=== PATIENT | female | born 1965 | race Caucasian/White ===

== ENCOUNTER 2017-06-13 16:32 | Inpatient (IN) | payer MEDICAID, SELFPAY ==
[2017-06-13] VITALS (12 sets, daily range): BP systolic 122–167; BP diastolic 77–101; PULSE 80–100; RESP 13–22; TEMP 36.6–36.8; O2SAT 79–92; BMI 51.9; BMI 50.8
--- NOTE | 2017-06-13 16:43 | EKG12_ITS ---
Test Reason : SOB Blood Pressure : / mmHG Vent. Rate : 084 BPM Atrial Rate : 084 BPM P-R Int : 152 ms QRS Dur : 108 ms QT Int : 400 ms P-R-T Axes : 051 103 017 degrees QTc Int : 472 ms AGE AND GENDER SPECIFIC ECG ANALYSIS Normal sinus rhythm Right ventricular hypertrophy with repolarization abnormality ST elevation consider inferolateral injury or acute infarct ACUTE [place] / STEMI Abnormal ECG Confirmed by JM BONILLA, BRODY ([id number]), legal editor YAMILKA HEIN ([id number]) on 06/16/2017 3:32:09 PM Referred By: MARICARMEN Confirmed By:BRODY ONEAL MD
--- NOTE | 2017-06-13 16:45 | ED.VISSUMM ---
- ER Visit Summary Date of Service: 06/13/17 Chief Complaint: Dyspnea History of Present Illness: The patient is a 52 F worsening dyspnea over the last 2 days. Cough and wheezing. Status post aerosol treatment 2 PM with improved wheezing. History of right-sided heart failure with history of COPD sleep apnea and PE, states out of her Lasix 2 months ago. Takes 80 mg 3 times a day. Increase swelling the legs into her abdomen. Patient on 3 L of chronic oxygen. Tobacco history. Patient diagnosed with a PE last year 2016. She is on warfarin 10 mg, she states she is taking it daily. Similar symptoms when she was admitted in February. No vomiting or diarrhea. States had transient chest pain lasting seconds on the way in the ED. Physical Examination: General: Alert and oriented ?3, no acute distress HEENT: Normocephalic, atraumatic. Moist mucosa membranes Neck: supple, nontender. Cardiovascular: Regular rate and rhythm, no murmurs Respiratory: Normal breath sounds, symmetric, no distress Abdomen: Soft, nontender, nondistended. Lower abdominal swelling Extremities: Nontender, 1-2+ lower extremity edema, pulses intact ?4 Neuro: no focal neurological deficits. Test Results: EKG #1 at 1704: Sinus rate of 84. There is ST elevations V3 to V6 along with slightly inferior leads. His ST depression in V1 V2 with T-wave inversions at V1 V2. EKG #2 at 1731: Unchanged Emergency Department Course and Treatment: Patient came in by private vehicle off oxygen. In triage her O2 79%. She is placed on 4 L O2 to 92%. No current respiratory distress. No current wheezing however status post aerosol treatment at home. Reports not taking her Lasix for 2 months. Workup initiated. IV Lasix was administrated. Treatment Plan: Patient initiated COPD, CHF and chest pain workup. EKG noted ST elevations inferior lateral leads slight depressions V1 V2. Initial discussion and rediscussed with the patient is feeling at seconds of gas pain substernally that resolved. There is no radicular symptoms. There is no nausea or diaphoresis. However with findings I did speak with on-call covering corncob pipes assembler Dr. Morales at 1714 who reviewed the EKGs. Discussed possibility could be pericarditis with the inferior elevations and OK depressions there. In the clinical scenario patient no active chest pain, workup. Agrees with aspirin and Lasix therapy. Recommend adding a CRP and ESR. Monitor for chest symptoms that would change plan of care. Patient continues to deny complaint of chest symptoms. Troponin did return elevated 0.81. I did rediscuss with Dr. Morales, updated. Elevated CRP and ESR. Patient clinically is not acting like angina symptoms. INR did return at 1.4 stop therapeutic. Agrees with starting her on heparin. She will be monitored in PCU for treatment and further rule out as needed in the hospital. If she develops chest symptoms he is to be contacted for possible earlier intervention. Spoke with hospitalist, Dr. Hernadez updated on presentation, discussion with cardiology. He was admitted for further management. Disposition: Admission Impression: 1. COPD exacerbation 2. CHF exacerbation 3. Elevated troponin 4. Abnormal EKG This note was generated with [employer] dictation software. It may contain incorrect words, spelling, and punctuation that were not noted in review of the chart prior to signing ED Disposition - Plan for ED Patient: Disposition: Acute Care Hospital [facility] Chief Complaint: Shortness of Breath Diagnosis: CHF exacerbation, COPD exacerbation, Elevated troponin, Abnormal EKG Referrals: Brian Thao MD [Primary Care Provider] -
--- NOTE | 2017-06-13 16:50 | RAD_ITS ---
STUDY: X-RAY CHEST REASON FOR EXAM: Female, 52 years old. Increasing edema. Shortness of breath. TECHNIQUE: Portable AP COMPARISON: February 16, 2017 FINDINGS: There is perihilar fullness associated with indistinct pulmonary bronchovasculature and prominent interstitial markings. There is cardiomegaly present. There are calcified mediastinal lymph nodes. Normal visualized aortic arch and descending thoracic aorta. Normal visualized thoracic spine. Normal visualized ribs, clavicles, and shoulders. There is no demonstrated abnormality of the visualized soft tissue structures of the upper abdomen. RAD/Chest 1 View (Portable) IMPRESSION: Pulmonary venous congestion with possible associated interstitial edema. Cardiomegaly. Electronically Signed: Cintia Villafuerte MD at 17:11 EDT Tel , Service support ,
--- NOTE | 2017-06-13 17:20 | EKG12_ITS ---
Test Reason : REPEAT Blood Pressure : / mmHG Vent. Rate : 081 BPM Atrial Rate : 081 BPM P-R Int : 162 ms QRS Dur : 108 ms QT Int : 420 ms P-R-T Axes : 018 102 010 degrees QTc Int : 487 ms AGE AND GENDER SPECIFIC ECG ANALYSIS Normal sinus rhythm ST elevation consider inferolateral injury or acute infarct Prolonged QT ACUTE [place] / STEMI Abnormal ECG Confirmed by JM BONILLA, BRODY ([id number]), technical writer and editor YAMILKA HEIN ([id number]) on 06/16/2017 3:32:29 PM Referred By: DR PATRICK Confirmed By:BRODY ONEAL MD
[2017-06-13] MEDS: Aspirin 325 MG Tablet PO (17:21)
[2017-06-13] MEDS: MethylPREDNISolone 125 MG/2 ML Vial IV (17:21)
[2017-06-13] MEDS: Furosemide 100 MG/10 ML Vial 80 MG IV (17:21)
[2017-06-13 17:48] LABS: BNP,B-Type NATRIURETIC PEPTIDE 695.5 pg/mL (0-100)
[2017-06-13 17:56] LABS: Absolute Neutrophil Count 4.8 X10^3/uL (2.0-7.7); Anion Gap 6 (5-15); BUN 14 mg/dL (7-18); BUN/Creat Ratio 14.4 RATIO (10-20); Basophil# 0.04 X10^3/uL; Basophil% 0.6 % (0-1); Calcium,Total 8.9 mg/dL (8.5-10.1); Chloride 104 mmol/L (98-107); Creatinine, Serum 0.97 mg/dL (0.55-1.02); EST Glomerular Filtration Rate 64 mL/min (>60); Eosinophils% 1.5 % (0-5); Est Glom Filt Rate - Afr Amer 77 mL/min (>60); Estimated Creatinine Clearance 62.07 ml/min; Glucose 117 mg/dL (74-106); Hematocrit 48.6 % (37-47); Hemoglobin 14.1 g/dl (12.0-15.0); Lymphocyte % 16.7 % (19-41); Mean Corpuscular Volume 68.8 fL (81-99); Mean Platelet Vol. 9.1 fl (6.2-12.0); Monocyte# 0.57 X10^3/uL; Monocyte% 8.7 % (0-10); Neutrophil # 4.76 X10^3/uL (2.7-7.7); Neutrophil % 72.3 % (47-70); Platelet Count 239 K/mm3 (150-450); Potassium 4.1 mmol/L (3.5-5.1); RBC Distribution Width CV 23.5 % (11.6-14.6); RBC Distribution Width SD 57.5 fl (35.1-43.9); Sodium Level 142 mmol/L (136-145); White Blood Count 6.6 K/mm3 (4.4-11.0)
[2017-06-13 17:57] LABS: Red Blood Count 7.06 M/mm3 (4.2-5.4)
[2017-06-13 17:58] LABS: Differential Indicated SCAN CRITERIA MET; POSITIVE COUNT NO; POSITIVE DIFFERENTIAL NO; POSITIVE MORPHOLOGY YES
[2017-06-13 17:59] LABS: Erythrocyte Sedimentation Rate 31 mm/hr (0-30)
[2017-06-13 18:07] LABS: International Normalized Ratio 1.4; Partial Thromboplast Time 34.5 Seconds (24.1-36.2); Prothrombin Time (Protime)PT. 17.3 SECONDS (11.7-14.9)
[2017-06-13 18:21] LABS: Differential Comment SCANNED
--- NOTE | 2017-06-13 19:14 | PCM.HP.STD ---
Problem List (1) CHF exacerbation Status: Acute (2) COPD exacerbation Status: Acute (3) Elevated troponin Status: Acute (4) Abnormal EKG Status: Acute (5) Pulmonary embolus Status: Suspected Qualifiers: (6) Morbid obesity with BMI of 60.0-69.9, adult Status: Chronic (7) Sleep apnea syndrome Status: Suspected Qualifiers: (8) Viridans streptococci infection Status: Resolved (9) Bacteremia due to Streptococcus Status: Resolved (10) Acute kidney failure Status: Resolved (11) Transaminitis Status: Chronic (12) Cellulitis Status: Resolved Qualifiers: History of Present Illness Date of Admission: 06/13/17 Chief Complaint: Shortness of breath The patient is a 52 year old F with multiple comorbidities including CHF and COPD on 3 L of home oxygen came to ER with progressive worsening of shortness of breath for 2 days. She states he ran out of Lasix about 2 months ago and her appointment with PCP is 6 months from now. Patient denies chest pain/tightness/heaviness or palpitation. In the ED, patient was found 79% on room air and currently 92% on 4 L oxygen. Patient is mild tachypneic. Chest x-ray shows pulmonary venous congestion with associated interstitial edema. First troponin is mildly elevated 0.8. There is some EKG changes mainly ST depression in V1 and V2 with T inversion in V1 to V3 lead. There is subtle [place] depression in inferior leads and ST elevation in V3 to V4. The EKG changes and troponin was discussed with Dr. Morales by ER physician Dr. Chavarria. Patient is on Coumadin for history of PE but INR is subtherapeutic. Patient is started on IV heparin drip in case if she needs cardiac cath. [] Past Medical History Past Medical History (Chronic Problems): Chronic Problems Morbid obesity with BMI of 60.0-69.9, adult (Chronic) Transaminitis (Chronic) Allergies aspirin [From Percodan] Allergy (Verified 06/13/17 16:36) Hives oxycodone HCl [From Percodan] Allergy (Verified 06/13/17 16:36) Hives oxycodone terephthalate [From Percodan] Allergy (Verified 06/13/17 16:36) Hives Sulfa (Sulfonamide Antibiotics) Allergy (Verified 06/13/17 16:36) Hives cefuroxime Adverse Reaction (Verified 06/13/17 16:36) Unknown Cephalosporins Adverse Reaction (Verified 06/13/17 16:36) Vomiting meperidine HCl [From Demerol] Adverse Reaction (Verified 06/13/17 16:36) Vomiting NSAIDS (Non-Steroidal Anti-Inflamma Adverse Reaction (Verified 06/13/17 16:36) Unknown oxycodone [Oxycodone] Adverse Reaction (Verified 06/13/17 16:36) Rash procaine [Procaine] Adverse Reaction (Verified 06/13/17 16:36) Upset Stomach Home Medications: Ambulatory Orders Medication Instructions Recorded Acetaminophen 500 mg PO Q6H PRN 11/28/16 Albuterol Inhaler [Ventolin Hfa] 1 - 2 puff INHALATION Q4H PRN PRN 11/28/16 Buspirone HCl 7.5 mg PO BID 11/28/16 Cholecalciferol (Vitamin D3) 50,000 unit PO QWEEK 11/28/16 [Vitamin D3] Docusate Sodium [Stool Softener] 100 mg PO BID PRN 11/28/16 Folic Acid 1 mg PO DAILY 11/28/16 Gabapentin [Neurontin] 100 mg PO BIDCM 11/28/16 Levothyroxine [Synthroid] 25 mcg PO DAILY 11/28/16 Metoprolol Succinate 25 mg PO DAILY 11/28/16 Omeprazole 20 mg PO DAILY 11/28/16 Oxybutynin [Ditropan] 5 mg PO DAILY 11/28/16 Venlafaxine HCl [Venlafaxine HCl 150 mg PO DAILY 11/28/16 ER] Warfarin [Coumadin] 10 mg PO DAILY 11/28/16 Furosemide [Lasix] 80 mg PO TID #90 tab 02/19/17 Famotidine 20 mg PO QHS 06/13/17 Hydroxyzine HCl 10 mg PO TID 06/13/17 Multivitamin with Iron [Tab-A-Jessica 1 each PO DAILY 06/13/17 with Iron] Surgical History: cholecystectomy, - - section. 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 Denies: Chills, Fever HEENT: Denies: Head Aches, Sinus Congestion, Sinus Drainage Cardiovascular: Reports: Edema. Denies: Chest Pain, Palpitations Respiratory: Reports: Cough - Chronic COPD cough with no change in character or severity, Shortness of breath at rest, Shortness of breath upon exertion. Denies: Sputum production Gastrointestinal: Denies: Abdominal Pain, Nausea, Vomiting Genitourinary: Denies: Dysuria Musculoskeletal: Reports: Joint Pain. Denies: Joint Tenderness Skin: Denies: Rash, Wounds Neurological: Denies: Numbness, Tingling, Focal weakness Psychiatric: Denies: Anxiety, Depression, Homicidal Ideations, Suicidal Ideations Hematologic/ Lymphatic: Denies: Easy Bruising, Easy Bleeding VTE Information - Inpt Only VTE Present on Admission: No VTE Mechan Device Prophylaxis: SCD's VTE Pharm Prophylaxis ordered?: Yes Patient Problems: Active and Suspected Problems CHF exacerbation (Acute) COPD exacerbation (Acute) Elevated troponin (Acute) Abnormal EKG (Acute) - Physical Exam General: Alert, Oriented x3, Cooperative HEENT: Atraumatic, PERRLA, EOMI, Normocephalic Oral: Dry Mucosa Neck: Supple, No JVD, Negative Carotid Bruits Lungs: Diminished - Air entry diminished diffuse in all lung vuong. Bilateral wheezing present., Rhonchi, Short of Breath, Tachypneic, Wheezes Cardiovascular: Regular rate, Regular Rhythm, Normal S1, Normal S2, No murmurs Abdomen: Bowel Sounds Present, Soft, Non Tender, - - Obese abdomen. Difficult to assess ascites Extremities: Capillary Refill Less than 3 Seconds, Edema Skin: No rashes, No breakdown, - - Bilateral lower extremity edema with lymphedema Musculoskeletal: No Tenderness to Palpation of Joints or Extremities Neurological: Cranial nerves II-XII grossly intact, Neuro grossly intact Psych/Mental Status: Normal Affect, Appropriate Vital Signs Temp Pulse Resp BP Pulse Ox 98.1 F 84 20 H 161/95 H 92 06/13/17 16:34 06/13/17 18:44 06/13/17 18:44 06/13/17 18:44 06/13/17 18:44 Assessment/Plan Active and Suspected Problems CHF exacerbation (Acute) COPD exacerbation (Acute) Elevated troponin (Acute) Abnormal EKG (Acute) The patient is a 52 year old F with multiple comorbidities including CHF and COPD on 3 L of home oxygen came to ER with progressive worsening of shortness of breath for 2 days. She states he ran out of Lasix about 2 months ago and her appointment with PCP is 6 months from now. Patient denies chest pain/tightness/heaviness or palpitation. In the ED, patient was found 79% on room air and currently 92% on 4 L oxygen. Patient is mild tachypneic. Chest x-ray shows pulmonary venous congestion with associated interstitial edema. First troponin is mildly elevated 0.8. There is some EKG changes mainly ST depression in V1 and V2 with T inversion in V1 to V3 lead. There is subtle [place] depression in inferior leads and ST elevation in V3 to V4. The EKG changes and troponin was discussed with Dr. Morales by ER physician Dr. Chavarria. Patient is on Coumadin for history of PE but INR is subtherapeutic. Patient is started on IV heparin drip in case if she needs cardiac cath. 1. Acute on chronic heart failure mainly right ventricular failure with pulmonary hypertension due to cor pulmonale: Patient had echo in February 2017 which shows severely dilated right ventricle with moderately severe global RV systolic dysfunction. LV is normal in size, moderate concentric LVH and systolic function with EF 65%. Normal LV, right atrium mildly enlarged. Mild TR with RVSP 73 mmHg severe pulmonary hypertension. The patient is being admitted in PCU. Patient had Lasix 40 mg in the ER and started on Lasix drip. Control the blood pressure. Started on lisinopril, continue metoprolol, statin. Cardiology consult. 2. EKG changes with mildly elevated troponin: Cycle cardiac enzymes. Repeat EKG at night. Mildly elevated troponin probably from right-sided heart failure. 3. Mild COPD exacerbation with acute bronchitis: On bronchodilator, IV Solu-Medrol, incentive spirometry, chest physiotherapy and oxygen therapy. Flu test ordered. 4. history of PE: Patient is on Coumadin but INR subtherapeutic. On IV heparin drip. 5. Other comorbidities include obstructive sleep apnea, chronic nicotine use, bilateral lower extremity lymphedema with possibility of ascites, super morbid obesity: Home medication reconciliation done. Multiple comorbidities complicates the present care and probably add to length of his stay. CPAP at night DVT prophylaxis: On IV heparin drip Laboratory Results 06/13/17 17:11: WBC 6.6, RBC 7.06 H, Hgb 14.1, Hct 48.6 H, MCV 68.8 L, MCH 20.0 L, MCHC 29.0 L, RDW 23.5 H, RDW Differential 57.5 H, Plt Count 239, MPV 9.1, Immature Gran % (Auto) 0.200, Neut % (Auto) 72.3 H, Lymph % (Auto) 16.7 L, [place] % (Auto) 8.7, Eos % (Auto) 1.5, Baso % (Auto) 0.6, Absolute Neuts (auto) 4.8, Absolute Lymphs (auto) 1.10, Total Counted Not Reportable, Differential Comment SCANNED 06/13/17 17:11: Sodium 142, Potassium 4.1, Chloride 104, Carbon Dioxide 32.0, Anion Gap 6, BUN 14, Creatinine 0.97, Estim Creat Clear Calc 62.07, Est GFR (MDRD) Af Amer 77, Est GFR (MDRD) Non-Af 64, BUN/Creatinine Ratio 14.4, Glucose 117 H, Calcium 8.9, Troponin I 0.81 H* 06/13/17 17:11: B-Natriuretic Peptide 695.5 H 06/13/17 17:11: PT 17.3 H, INR 1.4, APTT 34.5 06/13/17 17:11: ESR 31 H 06/13/17 17:11: C-React Prot Ext Range 20.80 H Clinical Impression(s) from Imaging Studies Chest X-Ray 06/13/17 16:50 IMPRESSION: Pulmonary venous congestion with possible associated interstitial edema. Cardiomegaly. Code Visit Inpatient E&M: 61486 Init Hosp L3
--- NOTE | 2017-06-13 19:28 | HP.PCM_ITS ---
Problem List (1) CHF exacerbation Status: Acute (2) COPD exacerbation Status: Acute (3) Elevated troponin Status: Acute (4) Abnormal EKG Status: Acute (5) Pulmonary embolus Status: Suspected Qualifiers: (6) Morbid obesity with BMI of 60.0-69.9, adult Status: Chronic (7) Sleep apnea syndrome Status: Suspected Qualifiers: (8) Viridans streptococci infection Status: Resolved (9) Bacteremia due to Streptococcus Status: Resolved (10) Acute kidney failure Status: Resolved (11) Transaminitis Status: Chronic (12) Cellulitis Status: Resolved Qualifiers: History of Present Illness Date of Admission: 06/13/17 Chief Complaint: Shortness of breath The patient is a 52 year old F with multiple comorbidities including CHF and COPD on 3 L of home oxygen came to ER with progressive worsening of shortness of breath for 2 days. She states he ran out of Lasix about 2 months ago and her appointment with PCP is 6 months from now. Patient denies chest pain/ tightness/heaviness or palpitation. In the ED, patient was found 79% on room air and currently 92% on 4 L oxygen. Patient is mild tachypneic. Chest x-ray shows pulmonary venous congestion with associated interstitial edema. First troponin is mildly elevated 0.8. There is some EKG changes mainly ST depression in V1 and V2 with T inversion in V1 to V3 lead. There is subtle AL depression in inferior leads and ST elevation in V3 to V4. The EKG changes and troponin was discussed with Dr. Morales by ER physician Dr. Chavarria. Patient is on Coumadin for history of PE but INR is subtherapeutic. Patient is started on IV heparin drip in case if she needs cardiac cath. [] Past Medical History Past Medical History (Chronic Problems): Chronic Problems Morbid obesity with BMI of 60.0-69.9, adult (Chronic) Transaminitis (Chronic) Allergies aspirin [From Percodan] Allergy (Verified 06/13/17 16:36) Hives oxycodone HCl [From Percodan] Allergy (Verified 06/13/17 16:36) Hives oxycodone terephthalate [From Percodan] Allergy (Verified 06/13/17 16:36) Hives Sulfa (Sulfonamide Antibiotics) Allergy (Verified 06/13/17 16:36) Hives cefuroxime Adverse Reaction (Verified 06/13/17 16:36) Unknown Cephalosporins Adverse Reaction (Verified 06/13/17 16:36) Vomiting meperidine HCl [From Demerol] Adverse Reaction (Verified 06/13/17 16:36) Vomiting NSAIDS (Non-Steroidal Anti-Inflamma Adverse Reaction (Verified 06/13/17 16:36) Unknown oxycodone [Oxycodone] Adverse Reaction (Verified 06/13/17 16:36) Rash procaine [Procaine] Adverse Reaction (Verified 06/13/17 16:36) Upset Stomach Home Medications: Ambulatory Orders Medication Instructions Recorded Acetaminophen 500 mg PO Q6H PRN 11/28/16 Albuterol Inhaler [Ventolin Hfa] 1 - 2 puff INHALATION Q4H PRN PRN 11/28/16 Buspirone HCl 7.5 mg PO BID 11/28/16 Cholecalciferol (Vitamin D3) 50,000 unit PO QWEEK 11/28/16 [Vitamin D3] Docusate Sodium [Stool Softener] 100 mg PO BID PRN 11/28/16 Folic Acid 1 mg PO DAILY 11/28/16 Gabapentin [Neurontin] 100 mg PO BIDCM 11/28/16 Levothyroxine [Synthroid] 25 mcg PO DAILY 11/28/16 Metoprolol Succinate 25 mg PO DAILY 11/28/16 Omeprazole 20 mg PO DAILY 11/28/16 Oxybutynin [Ditropan] 5 mg PO DAILY 11/28/16 Venlafaxine HCl [Venlafaxine HCl 150 mg PO DAILY 11/28/16 ER] Warfarin [Coumadin] 10 mg PO DAILY 11/28/16 Furosemide [Lasix] 80 mg PO TID #90 tab 02/19/17 Famotidine 20 mg PO QHS 06/13/17 Hydroxyzine HCl 10 mg PO TID 06/13/17 Multivitamin with Iron [Tab-A-Jessica 1 each PO DAILY 06/13/17 with Iron] Surgical History: cholecystectomy, - - section. 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 Denies: Chills, Fever HEENT: Denies: Head Aches, Sinus Congestion, Sinus Drainage Cardiovascular: Reports: Edema. Denies: Chest Pain, Palpitations Respiratory: Reports: Cough - Chronic COPD cough with no change in character or severity, Shortness of breath at rest, Shortness of breath upon exertion. Denies: Sputum production Gastrointestinal: Denies: Abdominal Pain, Nausea, Vomiting Genitourinary: Denies: Dysuria Musculoskeletal: Reports: Joint Pain. Denies: Joint Tenderness Skin: Denies: Rash, Wounds Neurological: Denies: Numbness, Tingling, Focal weakness Psychiatric: Denies: Anxiety, Depression, Homicidal Ideations, Suicidal Ideations Hematologic/ Lymphatic: Denies: Easy Bruising, Easy Bleeding VTE Information - Inpt Only VTE Present on Admission: No VTE Mechan Device Prophylaxis: SCD's VTE Pharm Prophylaxis ordered?: Yes Patient Problems: Active and Suspected Problems CHF exacerbation (Acute) COPD exacerbation (Acute) Elevated troponin (Acute) Abnormal EKG (Acute) - Physical Exam General: Alert, Oriented x3, Cooperative HEENT: Atraumatic, PERRLA, EOMI, Normocephalic Oral: Dry Mucosa Neck: Supple, No JVD, Negative Carotid Bruits Lungs: Diminished - Air entry diminished diffuse in all lung vuong. Bilateral wheezing present., Rhonchi, Short of Breath, Tachypneic, Wheezes Cardiovascular: Regular rate, Regular Rhythm, Normal S1, Normal S2, No murmurs Abdomen: Bowel Sounds Present, Soft, Non Tender, - - Obese abdomen. Difficult to assess ascites Extremities: Capillary Refill Less than 3 Seconds, Edema Skin: No rashes, No breakdown, - - Bilateral lower extremity edema with lymphedema Musculoskeletal: No Tenderness to Palpation of Joints or Extremities Neurological: Cranial nerves II-XII grossly intact, Neuro grossly intact Psych/Mental Status: Normal Affect, Appropriate Vital Signs Temp Pulse Resp BP Pulse Ox 98.1 F 84 20 H 161/95 H 92 06/13/17 16:34 06/13/17 18:44 06/13/17 18:44 06/13/17 18:44 06/13/17 18:44 Assessment/Plan Active and Suspected Problems CHF exacerbation (Acute) COPD exacerbation (Acute) Elevated troponin (Acute) Abnormal EKG (Acute) The patient is a 52 year old F with multiple comorbidities including CHF and COPD on 3 L of home oxygen came to ER with progressive worsening of shortness of breath for 2 days. She states he ran out of Lasix about 2 months ago and her appointment with PCP is 6 months from now. Patient denies chest pain/ tightness/heaviness or palpitation. In the ED, patient was found 79% on room air and currently 92% on 4 L oxygen. Patient is mild tachypneic. Chest x-ray shows pulmonary venous congestion with associated interstitial edema. First troponin is mildly elevated 0.8. There is some EKG changes mainly ST depression in V1 and V2 with T inversion in V1 to V3 lead. There is subtle AL depression in inferior leads and ST elevation in V3 to V4. The EKG changes and troponin was discussed with Dr. Morales by ER physician Dr. Chavarria. Patient is on Coumadin for history of PE but INR is subtherapeutic. Patient is started on IV heparin drip in case if she needs cardiac cath. 1. Acute on chronic heart failure mainly right ventricular failure with pulmonary hypertension due to cor pulmonale: Patient had echo in February 2017 which shows severely dilated right ventricle with moderately severe global RV systolic dysfunction. LV is normal in size, moderate concentric LVH and systolic function with EF 65%. Normal LV, right atrium mildly enlarged. Mild TR with RVSP 73 mmHg severe pulmonary hypertension. The patient is being admitted in PCU. Patient had Lasix 40 mg in the ER and started on Lasix drip. Control the blood pressure. Started on lisinopril, continue metoprolol, statin. Cardiology consult. 2. EKG changes with mildly elevated troponin: Cycle cardiac enzymes. Repeat EKG at night. Mildly elevated troponin probably from right-sided heart failure. 3. Mild COPD exacerbation with acute bronchitis: On bronchodilator, IV Solu- Medrol, incentive spirometry, chest physiotherapy and oxygen therapy. Flu test ordered. 4. history of PE: Patient is on Coumadin but INR subtherapeutic. On IV heparin drip. 5. Other comorbidities include obstructive sleep apnea, chronic nicotine use, bilateral lower extremity lymphedema with possibility of ascites, super morbid obesity: Home medication reconciliation done. Multiple comorbidities complicates the present care and probably add to length of his stay. CPAP at night DVT prophylaxis: On IV heparin drip Laboratory Results 06/13/17 17:11: WBC 6.6, RBC 7.06 H, Hgb 14.1, Hct 48.6 H, MCV 68.8 L, MCH 20.0 L, MCHC 29.0 L, RDW 23.5 H, RDW Differential 57.5 H, Plt Count 239, MPV 9.1, Immature Gran % (Auto) 0.200, Neut % (Auto) 72.3 H, Lymph % (Auto) 16.7 L, [place] % (Auto) 8.7, Eos % (Auto) 1.5, Baso % (Auto) 0.6, Absolute Neuts (auto) 4.8, Absolute Lymphs (auto) 1.10, Total Counted Not Reportable, Differential Comment SCANNED 06/13/17 17:11: Sodium 142, Potassium 4.1, Chloride 104, Carbon Dioxide 32.0, Anion Gap 6, BUN 14, Creatinine 0.97, Estim Creat Clear Calc 62.07, Est GFR ( MDRD) Af Amer 77, Est GFR (MDRD) Non-Af 64, BUN/Creatinine Ratio 14.4, Glucose 117 H, Calcium 8.9, Troponin I 0.81 H* 06/13/17 17:11: B-Natriuretic Peptide 695.5 H 06/13/17 17:11: PT 17.3 H, INR 1.4, APTT 34.5 06/13/17 17:11: ESR 31 H 06/13/17 17:11: C-React Prot Ext Range 20.80 H Clinical Impression(s) from Imaging Studies Chest X-Ray 06/13/17 16:50 IMPRESSION: Pulmonary venous congestion with possible associated interstitial edema. Cardiomegaly. Code Visit Inpatient E&M: 45583 Init Hosp L3
[2017-06-13 19:52] LABS: Magnesium 1.6 mg/dL (1.6-2.6)
[2017-06-13] MEDS: Heparin Injection 5,000 UNITS/ML Syringe 4000 UNITS IV (20:28)
[2017-06-13] MEDS: 0.9% NaCl Peripheral Flush Adult/Peds IV ×2 (20:29→22:10)
[2017-06-13] MEDS: Lisinopril 5 MG Tablet PO (20:29)
[2017-06-13] MEDS: HEPARIN/D5w 25,000 UNITS 25,000 UNITS/250 ML IV.SOLN. 10 UNITS IV (20:31)
[2017-06-13] MEDS: Acetaminophen 325 MG Tablet 650 MG PO (20:49)
[2017-06-13] MEDS: Ipratropium/Albuterol Sulfate 3 ML AMPUL.NEB INHALATION (21:20)
--- NOTE | 2017-06-13 22:06 | EKG12_ITS ---
Test Reason : CHF Blood Pressure : / mmHG Vent. Rate : 092 BPM Atrial Rate : 092 BPM P-R Int : 162 ms QRS Dur : 110 ms QT Int : 390 ms P-R-T Axes : 051 112 -04 degrees QTc Int : 482 ms Normal sinus rhythm Right ventricular hypertrophy with repolarization abnormality Anterior infarct , age undetermined T wave abnormality, consider inferior ischemia Abnormal ECG When compared with ECG of 13-JUN-2017 17:31, MANUAL COMPARISON REQUIRED, DATA IS UNCONFIRMED Confirmed by JM BONILLA, BRODY ([id number]), web editor YAMILKA HEIN ([id number]) on 06/19/2017 2:37:28 PM Referred By: MARK Confirmed By:BRODY ONEAL MD
[2017-06-13] MEDS: busPIRone 5 MG Tablet 7.5 MG PO (22:09)
[2017-06-13] MEDS: guaiFENesin 1,200 MG Tablet 1200 MG PO (22:09)
[2017-06-14] VITALS (23 sets, daily range): BP systolic 101–161; BP diastolic 57–98; PULSE 69–104; RESP 14–20; TEMP 36.4–37.1; O2SAT 85–90
[2017-06-14] MEDS: Nitroglycerin Oint 1 INCH PACKET TRANSDERM. ×2 (00:53→05:41)
[2017-06-14] MEDS: Metoprolol Tartrate 25 MG Tablet PO ×3 (00:54→21:44)
[2017-06-14 02:36] LABS: Partial Thromboplast Time 38.3 Seconds (24.1-36.2)
[2017-06-14 02:38] LABS: Absolute Lymphocyte Count 0.57 X10^3/ul (0.83-4.51); Absolute Neutrophil Count 6.8 X10^3/uL (2.0-7.7); Basophil# 0.01 X10^3/uL; Basophil% 0.1 % (0-1); Hematocrit 54.1 % (37-47); Hemoglobin 15.4 g/dl (12.0-15.0); Lymphocyte # 0.57 X10^3/ul (4.0); Lymphocyte % 7.5 % (19-41); Mean Corp Hgb Conc 28.5 g/gl (32-36); Mean Corpuscular Hgb 20.2 pg (27.0-32.0); Mean Corpuscular Volume 70.8 fL (81-99); Monocyte# 0.18 X10^3/uL; Monocyte% 2.4 % (0-10); Neutrophil # 6.78 X10^3/uL (2.7-7.7); Neutrophil % 89.9 % (47-70); Platelet Count 184 K/mm3 (150-450); RBC Distribution Width CV 22.2 % (11.6-14.6); RBC Distribution Width SD 54.8 fl (35.1-43.9); White Blood Count 7.6 K/mm3 (4.4-11.0)
[2017-06-14 02:39] LABS: Differential Indicated SCAN CRITERIA MET; POSITIVE COUNT NO; POSITIVE DIFFERENTIAL YES; POSITIVE MORPHOLOGY YES; Red Blood Count 7.64 M/mm3 (4.2-5.4)
[2017-06-14] MEDS: Heparin Injection 5,000 UNITS/ML Syringe IV ×2 (02:57→16:22)
[2017-06-14 03:01] LABS: Differential Comment SCANNED
[2017-06-14 03:02] LABS: Anisocytosis 2+; Polychromasia RARE
[2017-06-14 03:06] LABS: AST(SGOT) 76 U/L (15-37); Alanine Aminotransfer ALT/SGPT 22 U/L (13-56); Albumin, Serum 3.2 g/dL (3.2-5.0); Alkaline Phosphatase 99 U/L (45-117); Anion Gap 8 (5-15); BUN 16 mg/dL (7-18); BUN/Creat Ratio 14.2 RATIO (10-20); Bilirubin, Direct 0.21 mg/dL (0.00-0.30); Calcium,Total 8.9 mg/dL (8.5-10.1); Chloride 100 mmol/L (98-107); Cholesterol 174 mg/dL (200); Creatinine, Serum 1.13 mg/dL (0.55-1.02); EST Glomerular Filtration Rate 53 mL/min (>60); Est Glom Filt Rate - Afr Amer 65 mL/min (>60); Estimated Creatinine Clearance 53.28 ml/min; Globulin 4.4 g/dL (2.2-4.2); Glucose 145 mg/dL (74-106); High Density Lipoprotein 46 mg/dL; Potassium 3.5 mmol/L (3.5-5.1); Protein, Total 7.6 g/dL (6.4-8.2); Sodium Level 141 mmol/L (136-145); Thyroid Stim Hormone (TSH) 0.61 uIU/mL (0.358-3.74); Triglycerides 78 mg/dL; Very Low Density Lipoprotein 16 mg/dL (5-40)
[2017-06-14 04:43] LABS: Color, Urine Straw (Yellow); Glucose, Dipstick Normal (Normal); Ketone-Dipstick Negative (Negative); Leukocyte Esterase-Dipstick Negative /ul (Negative); Nitrite-Dipstick Negative (Negative); Occult Blood-Urine 25 /ul (Negative); Protein-Dipstick 100 mg/dl (Negative); Urine Bilirubin Dipstick Negative (Negative); Urine Clarity Clear (Clear); Urine Urobilinogen Normal (Normal)
[2017-06-14 04:44] LABS: Internal QC Validated? YES +Cl - CLEAR BKGD; Pregnancy, Urine Negative Negative
[2017-06-14] MEDS: Levothyroxine 25 MCG TABLET PO (05:42)
[2017-06-14] MEDS: Acetaminophen 325 MG Tablet 650 MG PO (05:44)
[2017-06-14] MEDS: Lisinopril 5 MG Tablet PO (05:44)
[2017-06-14 06:53] LABS: International Normalized Ratio 1.3; Prothrombin Time (Protime)PT. 16.5 SECONDS (11.7-14.9)
[2017-06-14 06:54] LABS: Partial Thromboplast Time 41.1 Seconds (24.1-36.2)
[2017-06-14] MEDS: Ipratropium/Albuterol Sulfate 3 ML AMPUL.NEB INHALATION ×4 (07:29→18:55)
[2017-06-14] MEDS: Gabapentin 100 MG Capsule PO ×2 (08:27→16:22)
[2017-06-14] MEDS: traMADol 50 MG Tablet PO ×2 (08:27→16:22)
[2017-06-14] MEDS: Clopidogrel Bisulfate 300 MG Tablet PO (08:27)
[2017-06-14] MEDS: Aspirin 81 MG TAB.CHEW PO (08:27)
[2017-06-14] MEDS: Folic Acid 1 MG Tablet PO (08:27)
--- NOTE | 2017-06-14 09:02 | VDLE_ITS ---
Reason For Study: SHORTNESS OF BREATH RIGHT LEFT GSV is normal. GSV is normal. CFV is compressible, spontaneous, phasic, CFV is compressible, spontaneous, phasic, competent and demonstrates normal competent, and demonstrates normal augmentation. augmentation. FV is compressible, spontaneous, phasic, FV is compressible, spontaneous, phasic, competent and demonstrates normal competent and demonstrates normal augmentation. augmentation. POP V is compressible, spontaneous, phasic, POP V is compressible, spontaneous, phasic, competent and demonstrates normal competent and demonstrates normal augmentation. augmentation. T/P Trunk is compressible. T/P Trunk is compressible. PTV is compressible. PTV is compressible. RT PerV is compressible. LT PerV is compressible. Procedure Exam performed portable in patient room. Technically difficult due to body habitus. A preliminary report was called and/or faxed to [facility]. Interpretation Summary Deep veins of the lower extremities are bilaterally patent and compressible segmentally. There is no evidence of deep vein thrombosis on either side. Valvular competence appears intact within the proximal deep venous systems bilaterally. The greater saphenous veins appear bilaterally patent and compressible segmentally. Ordering Physician: Ronnie Morales Referring Physician: Brian Thao M.D. Performed By: Yas Chan RVT
--- NOTE | 2017-06-14 09:04 | ECHOCS_ITS ---
Reason For Study: PHTN Procedure This was a 2D Doppler, Color Flow transthoracic echocardiogram. DID NOT USE CONTRAST DUE TO ELEVATED PULMONARY PRESSURE. Exam performed portable in patient room. Left Ventricle Moderate concentric left ventricular hypertrophy. D shaped septum in diastole. The estimated ejection fraction is 75 %. Stage 1 diastolic dysfunction. Septal motion consistent with IVCD. No regional wall motion abnormalities noted. Right Ventricle Severely dilated right ventricle. Severe global right ventricular systolic dysfunction. Atria The left atrium is moderately enlarged. The right atrium is mildly enlarged. Normal atrial septum. Mitral Valve The mitral valve is structurally normal. No prolapse or stenosis seen. Tricuspid Valve Normal tricuspid valve. Mild (1+) tricuspid valve insufficiency. Right ventricular systolic pressure estimated to be 56 mmHg. Aortic Valve Normal aortic valve. Trisinus/trileaflet aortic valve. Pulmonic Valve Normal pulmonic valve. Great Vessels Normal aortic root. Normal arch. Normal inferior vena cava. Inferior vena cava collapse with sniff. Pericardium/Pleural No pericardial effusion. MMode/2D Measurements & Calculations LVIDd: 4.7 cm IVSd: 1.6 cm Ao root diam: 3.3 cm LVIDs: 3.0 cm LVPWd: 1.4 cm RVDd: 4.0 cm FS: 36.2 % LAV(MOD-bp): 62.6 ml LA A4 area: 23.8 cm2 RA A4 area: 18.6 cm2 LAV(MOD-bp) Indexed: 26.2 ml/m2 LAV(MOD-sp2): 43.8 ml LAV(MOD-sp4): 72.6 ml Time Measurements MV dec time: 0.27 sec Doppler Measurements & Calculations MV E max cruz: 67.6 cm/sec Lat Peak E' Cruz: 7.6 cm/sec Med Peak E' Cruz: 5.2 cm/sec MV A max cruz: 94.1 cm/sec E/E' lat: 8.9 E/E' med: 13.1 MV E/A: 0.72 Ao V2 max: 148.7 cm/sec LV V1 max: 105.7 cm/sec PA V2 max: 119.8 cm/sec Ao max P.9 mmHg LV V1 max P.5 mmHg TR max cruz: 320.4 cm/sec TR max P.1 mmHg Interpretation Summary Moderate concentric left ventricular hypertrophy. The estimated ejection fraction is 75 %. Stage 1 diastolic dysfunction. Severely dilated right ventricle. The left atrium is moderately enlarged. The right atrium is mildly enlarged. Mild (1+) tricuspid valve insufficiency. Right ventricular systolic pressure estimated to be 56 mmHg, but may be underestimated. D shaped septum in diastole. Right ventricular systolic pressure estimated to be 56 mmHg. Compared to echo report dated 02/17/2017, no appreciable changes noted. RVSP has gone from 73 to 56 mm Hg, but may be underestimated on today's study. Ordering Physician: Ronnie Morales Referring Physician: HALLIE WHEELER Performed By: Hodan Felipe RDCS
--- NOTE | 2017-06-14 09:04 | CT_ITS ---
STUDY: CTA CHEST REASON FOR EXAM: Female, 52 years old. Cough and shortness of breath. Please exclude pulmonary embolism RADIATION DOSAGE (If Supplied By Facility): CTDIvol = ( 21.71 ) mGy, DLP = ( 683.12 ) mGycm TECHNIQUE: The examination was performed with the intravenous administration of 100CC ml of Isovue 370 contrast material. Post-processing of the angiographic images was performed, with multiplanar reformation and 3D reconstruction. Individualized dose optimization techniques were used for this CT. COMPARISON: None. FINDINGS: Normal enhancement of the main pulmonary artery and right and left pulmonary arteries. Normal enhancement of the bilateral peripheral pulmonary arteries. There is no demonstrated pulmonary embolism. Marked enlargement of the main pulmonary arteries suggest pulmonary artery hypertension. Normal thoracic aorta and visualized great vessels. There is no demonstrated aortic dissection. Mild to moderate cardiomegaly. Normal pericardium. Normal mediastinum. Normal hilar regions. Normal visualized trachea and bronchi. The lungs are well expanded. Spiculated nodule in the left lung apex is noted measuring 6.5 mm. There is slight vascular congestion noted throughout the lungs. Right lower lobe airspace disease and small effusion. Area of hypodensity in the right lung base is noted however, stable since 2012. Normal chest wall structures. There are degenerative changes of thoracic spine. Normal visualized upper abdomen. CT/CTA Chest W/WO Contrast IMPRESSION: 1. Negative for pulmonary embolism or thoracic aortic dissection 2. Markedly enlarged main pulmonary artery suggests pulmonary hypertension 3. Diffuse mild pulmonary edema suggesting CHF 4. Hypodense rounded lesion in the right lung base. Stable since 2012. Electronically Signed: Reji Mayer DO at 10:52 EDT Tel , Service support ,
[2017-06-14 09:23] LABS: Partial Thromboplast Time 42.8 Seconds (24.1-36.2)
[2017-06-14 09:51] LABS: D-Dimer Quantitative (DVT/PE) < 0.27 FEU/ug/m (0.27-0.49)
[2017-06-14] MEDS: Oxybutynin 5 MG Tablet PO (09:51)
[2017-06-14] MEDS: busPIRone 5 MG Tablet 7.5 MG PO ×2 (09:51→21:42)
[2017-06-14] MEDS: Venlafaxine XR 150 MG Capsule PO (09:51)
[2017-06-14] MEDS: guaiFENesin 1,200 MG Tablet 1200 MG PO ×2 (09:51→21:42)
[2017-06-14] MEDS: Pantoprazole Sodium 40 MG Tablet PO (09:51)
--- NOTE | 2017-06-14 10:09 | CASEMGMT ---
According to [facility] website, the following are in-network tertiary facilities: [facility], [place], [facility], [facility], [facility], [facility], [facility], [facility], and . Nikolas FLOYD CM
--- NOTE | 2017-06-14 11:10 | CASEMGMT ---
This RN CM to room to complete CM assessment and RN is at bedside completing care. Will attempt again later. [place] RN CM
--- NOTE | 2017-06-14 11:50 | PCM.CONS.C ---
Problem List (1) CHF exacerbation Status: Acute (2) Elevated troponin Status: Acute (3) Pulmonary embolus Status: Suspected Qualifiers: Reason for Consult Date of Consultation: 06/14/17 Reason for Consultation: Shortness of breath, medical noncompliance, abnormal EKG, abnormal troponins. History of Present Illness: The patient is a 52 year old F, with a history of hypertension, severe obesity, pulmonary hypertension, on chronic Coumadin therapy which she claims she is compliant with, history of pulmonary edema requiring diuretic therapy in February 2017. She has never undergone a catheterization. She is a nondiabetic. Apparently she has never seen a hand cooper helper despite her pulmonary hypertension, Coumadin, and Lasix needs. The patient stopped taking her Lasix about 2 months ago and did not seek renewal with her PCP. Over the last several weeks the patient has had progressively worsening lower extremity edema, abdominal fullness, abdominal wall edema, shortness of breath and dyspnea on exertion. Patient had no chest pain symptoms but due to her respiratory challenges she sought medical attention at [facility] ER where she was found to have an EKG showing normal sinus rhythm and subtle inferolateral ST segment elevation. This was in the face of no chest pain whatsoever. Her initial troponin was 0.8, and she was treated with medical therapy including aspirin, IV heparin, and IV Lasix drip. Patient was diagnosed with acute on chronic congestive heart failure and was unable to lay down flat for a catheterization or CT scan. As the patient was asymptomatic from an anginal standpoint she was treated medically. Patient's troponins peaked at 23 and now are trending downwards. She is asymptomatic at this time. Echo is pending. She is currently on IV heparin drip and IV Lasix drip. Patient states her shortness of breath and breathing have markedly improved but she is still not able to go past 45? angle due to breathing. Her EKG has reverted back to her normal normal sinus rhythm with inferolateral T-wave inversion. On further history the patient apparently was diagnosed with a pulmonary embolism after going to [facility] in the spring 2016. Patient then returned in February 2017 with a CHF exacerbation requiring IV diuretic therapy per the patient. It does not appear the cardiology was consulted during that time. According the patient she has never had a heart catheterization, and states that she has difficulty laying down flat at home to begin with. Patient sleeps in a chair, has minimal activity, but does state she is compliant with her medications. Echocardiogram dated 02/17/17 showed intact LV function with an EF of 65%, severe right atrial enlargement, moderate to severe RV dysfunction, and an RVSP of 73 mmHg. D-dimer is negative. [] Past Medical History Allergies/Adverse Reactions: Allergies aspirin [From Percodan] Allergy (Verified 06/13/17 16:36) Hives oxycodone HCl [From Percodan] Allergy (Verified 06/13/17 16:36) Hives oxycodone terephthalate [From Percodan] Allergy (Verified 06/13/17 16:36) Hives Sulfa (Sulfonamide Antibiotics) Allergy (Verified 06/13/17 16:36) Hives cefuroxime Adverse Reaction (Verified 06/13/17 16:36) Unknown Cephalosporins Adverse Reaction (Verified 06/13/17 16:36) Vomiting meperidine HCl [From Demerol] Adverse Reaction (Verified 06/13/17 16:36) Vomiting NSAIDS (Non-Steroidal Anti-Inflamma Adverse Reaction (Verified 06/13/17 16:36) Unknown oxycodone [Oxycodone] Adverse Reaction (Verified 06/13/17 16:36) Rash procaine [Procaine] Adverse Reaction (Verified 06/13/17 16:36) Upset Stomach Home Medications: Ambulatory Orders Medication Instructions Recorded Acetaminophen 500 mg PO Q6H PRN 11/28/16 Albuterol Inhaler [Ventolin Hfa] 1 - 2 puff INHALATION Q4H PRN PRN 11/28/16 Buspirone HCl 7.5 mg PO BID 11/28/16 Cholecalciferol (Vitamin D3) 50,000 unit PO QWEEK 11/28/16 [Vitamin D3] Docusate Sodium [Stool Softener] 100 mg PO BID PRN PRN 11/28/16 Folic Acid 1 mg PO DAILY 11/28/16 Gabapentin [Neurontin] 100 mg PO BIDCM 11/28/16 Levothyroxine [Synthroid] 25 mcg PO DAILY 11/28/16 Metoprolol Succinate 25 mg PO DAILY 11/28/16 Oxybutynin [Ditropan] 5 mg PO DAILY 11/28/16 Venlafaxine HCl [Venlafaxine HCl 150 mg PO DAILY 10/16/17 ER] Warfarin [Coumadin] 10 mg PO DAILY 11/28/16 Furosemide [Lasix] 80 mg PO TID #90 tab 02/19/17 Hydroxyzine HCl 10 mg PO TID 06/13/17 Multivitamin with Iron [Tab-A-Jessica 1 each PO DAILY 06/13/17 with Iron] Past Medical History (Chronic Problems): Chronic Problems Morbid obesity with BMI of 60.0-69.9, adult (Chronic) Transaminitis (Chronic) Surgical History: cholecystectomy, - - section. 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 Denies: Chest Discomfort, Orthopnea, PND, Peripheral Edema, Palpitations, Lightheadedness, Dizziness, Near Syncope, Syncope Respiratory: Denies: Cough, Sputum Production, Hemoptysis Gastrointestinal: Denies: Hematemesis, Hematochezia, Melena Genitourinary: Denies: Dysuria, Hematuria Skin: Denies: Rash Subjectve: Patient laying in bed, unable to lay down flat, MO she can go down to about 30?. No acute distress. IV heparin drip and IV Lasix drip infusing. Net -8 L out since admission. Objective: Vital Signs Temp Pulse Resp BP Pulse Ox 98.2 F 80 20 H 127/72 H 88 06/14/17 09:23 06/14/17 11:07 06/14/17 09:23 06/14/17 09:23 06/14/17 09:23 Oxygen Flow Rate (L/min) 6 Oxygen Delivery Method Nasal Cannula Weight: 303 lb 5.697 oz Body Mass Index (BMI) 50.8 Intake and Output for Last 24 Hours 06/12/17 06/13/17 06/14/17 23:59 23:59 23:59 Intake Total 779.9 / 779.9 Output Total 8275 / 8275 Balance -7495.1 / -7495.1 General: Awake, Alert, Oriented x 3 HEENT: PERRL, EOMI, Sclera Non Icteric Neck: Supple, Good ROM, No Lymph Node Enlargement Lungs: Clear to auscultation Cardiovascular: Regular Rhythm, Normal S1, Normal S2, No Rubs, No Gallops Murmur Murmur: Grade 3/6, Holosystolic Vascular: No Carotid Bruits, Normal Femoral Pulses, Normal Radial Pulses, Normal Dorsalis Pedal Pulse, Normal Posterior Tibial Pulses Abdomen: Bowel Sounds Present, Soft, Non Tender, No HSM, No Organomegaly Extremities: No Cyanosis, No Clubbing, No edema Neurological: No Focal Motor or Sensory Deficit 06/13/17 21:45: Troponin I 23.30 H* 06/14/17 02:05: WBC 7.6, RBC 7.64 H, Hgb 15.4 H, Hct 54.1 H, MCV 70.8 L, MCH 20.2 L, MCHC 28.5 L, RDW 22.2 H, RDW Differential 54.8 H, Plt Count 184, MPV 9.0, Immature Gran % (Auto) 0.100, Neut % (Auto) 89.9 H, Lymph % (Auto) 7.5 L, [place] % (Auto) 2.4, Eos % (Auto) 0.0, Baso % (Auto) 0.1, Absolute Neuts (auto) 6.8, Total Counted Not Reportable 06/14/17 02:05: Sodium 141, Potassium 3.5, Chloride 100, Carbon Dioxide 33.0 H, Anion Gap 8, BUN 16, Creatinine 1.13 H, Est GFR (MDRD) Af Amer 65, Est GFR (MDRD) Non-Af 53 L, BUN/Creatinine Ratio 14.2, Glucose 145 H, Calcium 8.9, Total Bilirubin 0.70, Direct Bilirubin 0.21, Triglycerides 78, Cholesterol 174, LDL Cholesterol 112, VLDL Cholesterol 16, HDL Cholesterol 46 06/14/17 02:05: Troponin I 19.20 H* 06/14/17 02:05: APTT 38.3 H 06/14/17 02:12: Urine Color Straw, Urine Clarity Clear, Urine pH 7.0, Ur Specific [place] 1.010, Urine Protein 100 H, Urine Glucose (UA) Normal, Urine Ketones Negative, Urine Occult Blood 25 H, Urine Nitrite Negative, Urine Bilirubin Negative, Urine Urobilinogen Normal, Ur Leukocyte Esterase Negative 06/14/17 06:40: Troponin I 13.80 H* 06/14/17 06:40: PT 16.5 H, INR 1.3, APTT 41.1 H 06/14/17 09:00: APTT 42.8 H 06/14/17 09:00: D-Dimer Quant (PE/DVT) < 0.27 L Rhythm: EKG: ECHO:pending Stress Test: Cardiac Cath: PCI: CT Surgery: Holter monitor: EPS: PPM: CXR: Chest CT Scan: Stress well Assessment/Plan 1. Coronary artery disease: The patient presented with acute exacerbation of her shortness of breath, medical noncompliance not taking her Lasix for the past 2 months, and was on a copious amount of Lasix in the form of 80 mg p.o. 3 times a day. The patient is never seen a hand cooper helper according to her, and has never undergone a catheterization. Patient presented last evening without any chest pain but did have subtle inferolateral ST segment elevation which did not reach criteria for STEMI, and the patient's peak troponin thus far is 23 and trending downwards. As the patient was unable to lay down flat for a CAT scan, and is still unable to lay down completely flat, remains asymptomatic, I do not believe we need to west and go to the [employer] [facility] at this time. I recommended that we discontinue her IV Lasix drip and switch her to Lasix 40 mg IV every 8 hours to continue her diuresis. We will also replace her potassium as well with p.o. potassium going forward. I recommended a repeat echocardiogram to evaluate her LV function, and reassess her pulmonary pressures. She has a known history of normal LV size and function as well as severe pulmonary hypertension in February 2017. Once the patient is able to lay down flat and we can gain access to her right groin after aggressive diuresis, we will then proceed with diagnostic coronary angiogram. In the meantime I recommend continuing her on IV heparin drip given her severe pulmonary hypertension, known history of DVT and pulmonary embolism in the past. Patient supposedly has an allergy to aspirin although she received aspirin in the ER without any difficulty. Would recommend continuing baby aspirin going forward, and loading the patient with Plavix given her abnormal troponin. She was given 300 mg of Plavix this morning followed by 75 mg a day. 2. Pulmonary hypertension: The patient may benefit from more aggressive diuresis in the form of Bumex combined with periodic metolazone to maintain her ideal fluid balance. In addition she will most likely benefit from an Eliquis or Xarelto based medication as she was subtherapeutic on her Coumadin and was allegedly taking at home. Patient was on 10 mg of Coumadin which was not effective to maintain her INR above 1.3. Also her d-dimer is negative, so it is unlikely that she had a repeat pulmonary embolism. 3. Hyperlipidemia: Her LDL is 112, HDL is 46. Recommend starting Lipitor 40 mg p.o. nightly and repeating lipid profile in 6 weeks time. 4. Thank you very much for the opportunity to participate in the cardiac care of your patient. Consultation time took place between 730 and 8:05 AM. Code Visit Inpatient E&M: 06275 Init Hosp L2
--- NOTE | 2017-06-14 12:00 | CON.PCM_ITS ---
Problem List (1) CHF exacerbation Status: Acute (2) Elevated troponin Status: Acute (3) Pulmonary embolus Status: Suspected Qualifiers: Reason for Consult Date of Consultation: 06/14/17 Reason for Consultation: Shortness of breath, medical noncompliance, abnormal EKG, abnormal troponins. History of Present Illness: The patient is a 52 year old F, with a history of hypertension, severe obesity, pulmonary hypertension, on chronic Coumadin therapy which she claims she is compliant with, history of pulmonary edema requiring diuretic therapy in February 2017. She has never undergone a catheterization. She is a nondiabetic. 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 The patient stopped taking her Lasix about 2 months ago and did not seek renewal with her PCP. Over the last several weeks the patient has had progressively worsening lower extremity edema, abdominal fullness, abdominal wall edema, shortness of breath and dyspnea on exertion. Patient had no chest pain symptoms but due to her respiratory challenges she sought medical attention at [facility] ER where she was found to have an EKG showing normal sinus rhythm and subtle inferolateral ST segment elevation. This was in the face of no chest pain whatsoever. Her initial troponin was 0.8, and she was treated with medical therapy including aspirin, IV heparin, and IV Lasix drip. Patient was diagnosed with acute on chronic congestive heart failure and was unable to lay down flat for a catheterization or CT scan. As the patient was asymptomatic from an anginal standpoint she was treated medically. Patient's troponins peaked at 23 and now are trending downwards. She is asymptomatic at this time. Echo is pending. She is currently on IV heparin drip and IV Lasix drip. Patient states her shortness of breath and breathing have markedly improved but she is still not able to go past 45? angle due to breathing. Her EKG has reverted back to her normal normal sinus rhythm with inferolateral T-wave inversion. On further history the patient apparently was diagnosed with a pulmonary embolism after going to [facility] in the spring 2016. Patient then returned in February 2017 with a CHF exacerbation requiring IV diuretic therapy per the patient. It does not appear the cardiology was consulted during that time. According the patient she has never had a heart catheterization, and states that she has difficulty laying down flat at home to begin with. Patient sleeps in a chair, has minimal activity, but does state she is compliant with her medications. Echocardiogram dated 02/17/17 showed intact LV function with an EF of 65%, severe right atrial enlargement, moderate to severe RV dysfunction, and an RVSP of 73 mmHg. D-dimer is negative. [] Past Medical History Allergies/Adverse Reactions: Allergies aspirin [From Percodan] Allergy (Verified 06/13/17 16:36) Hives oxycodone HCl [From Percodan] Allergy (Verified 06/13/17 16:36) Hives oxycodone terephthalate [From Percodan] Allergy (Verified 06/13/17 16:36) Hives Sulfa (Sulfonamide Antibiotics) Allergy (Verified 06/13/17 16:36) Hives cefuroxime Adverse Reaction (Verified 06/13/17 16:36) Unknown Cephalosporins Adverse Reaction (Verified 06/13/17 16:36) Vomiting meperidine HCl [From Demerol] Adverse Reaction (Verified 06/13/17 16:36) Vomiting NSAIDS (Non-Steroidal Anti-Inflamma Adverse Reaction (Verified 06/13/17 16:36) Unknown oxycodone [Oxycodone] Adverse Reaction (Verified 06/13/17 16:36) Rash procaine [Procaine] Adverse Reaction (Verified 06/13/17 16:36) Upset Stomach Home Medications: Ambulatory Orders Medication Instructions Recorded Acetaminophen 500 mg PO Q6H PRN 11/28/16 Albuterol Inhaler [Ventolin Hfa] 1 - 2 puff INHALATION Q4H PRN PRN 11/28/16 Buspirone HCl 7.5 mg PO BID 11/28/16 Cholecalciferol (Vitamin D3) 50,000 unit PO QWEEK 11/28/16 [Vitamin D3] Docusate Sodium [Stool Softener] 100 mg PO BID PRN PRN 11/28/16 Folic Acid 1 mg PO DAILY 11/28/16 Gabapentin [Neurontin] 100 mg PO BIDCM 11/28/16 Levothyroxine [Synthroid] 25 mcg PO DAILY 11/28/16 Metoprolol Succinate 25 mg PO DAILY 11/28/16 Oxybutynin [Ditropan] 5 mg PO DAILY 11/28/16 Venlafaxine HCl [Venlafaxine HCl 150 mg PO DAILY 10/16/17 ER] Warfarin [Coumadin] 10 mg PO DAILY 11/28/16 Furosemide [Lasix] 80 mg PO TID #90 tab 02/19/17 Hydroxyzine HCl 10 mg PO TID 06/13/17 Multivitamin with Iron [Tab-A-Jessica 1 each PO DAILY 06/13/17 with Iron] Past Medical History (Chronic Problems): Chronic Problems Morbid obesity with BMI of 60.0-69.9, adult (Chronic) Transaminitis (Chronic) Surgical History: cholecystectomy, - - section. 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 Denies: Chest Discomfort, Orthopnea, PND, Peripheral Edema, Palpitations, Lightheadedness, Dizziness, Near Syncope, Syncope Respiratory: Denies: Cough, Sputum Production, Hemoptysis Gastrointestinal: Denies: Hematemesis, Hematochezia, Melena Genitourinary: Denies: Dysuria, Hematuria Skin: Denies: Rash Subjectve: Patient laying in bed, unable to lay down flat, MO she can go down to about 30? . No acute distress. IV heparin drip and IV Lasix drip infusing. Net -8 L out since admission. Objective: Vital Signs Temp Pulse Resp BP Pulse Ox 98.2 F 80 20 H 127/72 H 88 06/14/17 09:23 06/14/17 11:07 06/14/17 09:23 06/14/17 09:23 06/14/17 09:23 Oxygen Flow Rate (L/min) 6 Oxygen Delivery Method Nasal Cannula Weight: 303 lb 5.697 oz Body Mass Index (BMI) 50.8 Intake and Output for Last 24 Hours 06/12/17 06/13/17 06/14/17 23:59 23:59 23:59 Intake Total 779.9 / 779.9 Output Total 8275 / 8275 Balance -7495.1 / -7495.1 General: Awake, Alert, Oriented x 3 HEENT: PERRL, EOMI, Sclera Non Icteric Neck: Supple, Good ROM, No Lymph Node Enlargement Lungs: Clear to auscultation Cardiovascular: Regular Rhythm, Normal S1, Normal S2, No Rubs, No Gallops Murmur Murmur: Grade 3/6, Holosystolic Vascular: No Carotid Bruits, Normal Femoral Pulses, Normal Radial Pulses, Normal Dorsalis Pedal Pulse, Normal Posterior Tibial Pulses Abdomen: Bowel Sounds Present, Soft, Non Tender, No HSM, No Organomegaly Extremities: No Cyanosis, No Clubbing, No edema Neurological: No Focal Motor or Sensory Deficit 06/13/17 21:45: Troponin I 23.30 H* 06/14/17 02:05: WBC 7.6, RBC 7.64 H, Hgb 15.4 H, Hct 54.1 H, MCV 70.8 L, MCH 20.2 L, MCHC 28.5 L, RDW 22.2 H, RDW Differential 54.8 H, Plt Count 184, MPV 9.0 , Immature Gran % (Auto) 0.100, Neut % (Auto) 89.9 H, Lymph % (Auto) 7.5 L, [place] % (Auto) 2.4, Eos % (Auto) 0.0, Baso % (Auto) 0.1, Absolute Neuts (auto) 6.8, Total Counted Not Reportable 06/14/17 02:05: Sodium 141, Potassium 3.5, Chloride 100, Carbon Dioxide 33.0 H, Anion Gap 8, BUN 16, Creatinine 1.13 H, Est GFR (MDRD) Af Amer 65, Est GFR (MDRD ) Non-Af 53 L, BUN/Creatinine Ratio 14.2, Glucose 145 H, Calcium 8.9, Total Bilirubin 0.70, Direct Bilirubin 0.21, Triglycerides 78, Cholesterol 174, LDL Cholesterol 112, VLDL Cholesterol 16, HDL Cholesterol 46 06/14/17 02:05: Troponin I 19.20 H* 06/14/17 02:05: APTT 38.3 H 06/14/17 02:12: Urine Color Straw, Urine Clarity Clear, Urine pH 7.0, Ur Specific [place] 1.010, Urine Protein 100 H, Urine Glucose (UA) Normal, Urine Ketones Negative, Urine Occult Blood 25 H, Urine Nitrite Negative, Urine Bilirubin Negative, Urine Urobilinogen Normal, Ur Leukocyte Esterase Negative 06/14/17 06:40: Troponin I 13.80 H* 06/14/17 06:40: PT 16.5 H, INR 1.3, APTT 41.1 H 06/14/17 09:00: APTT 42.8 H 06/14/17 09:00: D-Dimer Quant (PE/DVT) < 0.27 L Rhythm: EKG: ECHO:pending Stress Test: Cardiac Cath: PCI: CT Surgery: Holter monitor: EPS: PPM: CXR: Chest CT Scan: Stress well Assessment/Plan 1. Coronary artery disease: The patient presented with acute exacerbation of her shortness of breath, medical noncompliance not taking her Lasix for the past 2 months, and was on a copious amount of Lasix in the form of 80 mg p.o. 3 times a day. The patient is never seen a oceanic sciences professor according to her, and has never undergone a catheterization. Patient presented last evening without any chest pain but did have subtle inferolateral ST segment elevation which did not reach criteria for STEMI, and the patient's peak troponin thus far is 23 and trending downwards. As the patient was unable to lay down flat for a CAT scan, and is still unable to lay down completely flat, remains asymptomatic, I do not believe we need to west and go to the [facility] at this time. I recommended that we discontinue her IV Lasix drip and switch her to Lasix 40 mg IV every 8 hours to continue her diuresis. We will also replace her potassium as well with p.o. potassium going forward. I recommended a repeat echocardiogram to evaluate her LV function, and reassess her pulmonary pressures. She has a known history of normal LV size and function as well as severe pulmonary hypertension in February 2017. Once the patient is able to lay down flat and we can gain access to her right groin after aggressive diuresis, we will then proceed with diagnostic coronary angiogram. In the meantime I recommend continuing her on IV heparin drip given her severe pulmonary hypertension, known history of DVT and pulmonary embolism in the past. Patient supposedly has an allergy to aspirin although she received aspirin in the ER without any difficulty. Would recommend continuing baby aspirin going forward, and loading the patient with Plavix given her abnormal troponin. She was given 300 mg of Plavix this morning followed by 75 mg a day. 2. Pulmonary hypertension: The patient may benefit from more aggressive diuresis in the form of Bumex combined with periodic metolazone to maintain her ideal fluid balance. In addition she will most likely benefit from an Eliquis or Xarelto based medication as she was subtherapeutic on her Coumadin and was allegedly taking at home. Patient was on 10 mg of Coumadin which was not effective to maintain her INR above 1.3. Also her d-dimer is negative, so it is unlikely that she had a repeat pulmonary embolism. 3. Hyperlipidemia: Her LDL is 112, HDL is 46. Recommend starting Lipitor 40 mg p.o. nightly and repeating lipid profile in 6 weeks time. 4. Thank you very much for the opportunity to participate in the cardiac care of your patient. Consultation time took place between 730 and 8:05 AM. Code Visit Inpatient E&M: 48548 Init Hosp L2
[2017-06-14] MEDS: 0.9% NaCl Peripheral Flush Adult/Peds IV (13:48)
[2017-06-14] MEDS: Furosemide 40 MG/4 ML Vial IV ×2 (13:48→21:42)
--- NOTE | 2017-06-14 14:42 | CASEMGMT ---
Face to Face with patient for initial transition planning/care coordination assessment. MARIEL LEÓN introduced self and role at [facility], pt voices understanding and consents to assessment at this time. Pt is sitting up in bed in no distress at this time. Pt is A/O x4 at this time and answers all questions appropriately. Care providers, pharmacy, and demographics verified. See attached link. Pt voices no further concerns/needs at this time. Advised pt to ask for CM if any further questions/concerns/needs arise, voices understanding. PLAN: Home, possibly with [facility] set up. [place] MARIEL LEÓN
--- NOTE | 2017-06-14 16:00 | PCM.PN.HOSP ---
Patient Problems: Active and Suspected Problems CHF exacerbation (Acute) COPD exacerbation (Acute) Elevated troponin (Acute) Abnormal EKG (Acute) Subjective: CC: Shortness of breath Objective: The patient is a 52-year-old female who presents with shortness of breath, she is found to have acute congestive heart failure and elevated troponin consistent with NSTEMI. She currently denies any chest pain , dizziness , rapid heartbeat or palpitations. Vitals/I&O's: Vital Signs Temp Pulse Resp BP Pulse Ox 98 F 82 18 107/70 89 06/14/17 13:20 06/14/17 15:13 06/14/17 15:13 06/14/17 13:20 06/14/17 13:20 Oxygen Flow Rate (L/min) 6 Oxygen Delivery Method Nasal Cannula Weight: 137.6 kg Body Mass Index (BMI) 50.8 Intake and Output for Last 24 Hours 06/12/17 06/13/17 06/14/17 23:59 23:59 23:59 Intake Total 779.9 / 779.9 Output Total 8275 / 8275 Balance -7495.1 / -7495.1 General: Alert, Oriented x3 Neck: Supple Lungs: Clear to auscultation Cardiovascular: Regular rate, Normal S1, Normal S2 Abdomen: Bowel Sounds Present, Soft, Non-Distended Microbiology Past 72 Hours 06/13/17 21:12 Mucosa - Nasopharyngeal Influenza Types A,B Direct FA (ANGELA) - Final Laboratory Results 06/13/17 21:45: Troponin I 23.30 H* 06/14/17 02:05: WBC 7.6, RBC 7.64 H, Hgb 15.4 H, Hct 54.1 H, MCV 70.8 L, MCH 20.2 L, MCHC 28.5 L, RDW 22.2 H, RDW Differential 54.8 H, Plt Count 184, MPV 9.0, Immature Gran % (Auto) 0.100, Neut % (Auto) 89.9 H, Lymph % (Auto) 7.5 L, [place] % (Auto) 2.4, Eos % (Auto) 0.0, Baso % (Auto) 0.1, Absolute Neuts (auto) 6.8, Absolute Lymphs (auto) 0.57 L, Total Counted Not Reportable, Differential Comment SCANNED, Polychromasia RARE, Anisocytosis 2+ 05/02/18 02:05: Sodium 141, Potassium 3.5, Chloride 100, Carbon Dioxide 33.0 H, Anion Gap 8, BUN 16, Creatinine 1.13 H, Estim Creat Clear Calc 53.28, Est GFR (MDRD) Af Amer 65, Est GFR (MDRD) Non-Af 53 L, BUN/Creatinine Ratio 14.2, Glucose 145 H, Calcium 8.9, Total Bilirubin 0.70, Direct Bilirubin 0.21, AST 76 H, ALT 22, Alkaline Phosphatase 99, Total Protein 7.6, Albumin 3.2, Globulin 4.4 H, Triglycerides 78, Cholesterol 174, LDL Cholesterol 112, VLDL Cholesterol 16, HDL Cholesterol 46, TSH 0.61 06/14/17 02:05: Troponin I 19.20 H* 06/14/17 02:05: APTT 38.3 H 06/14/17 02:12: Urine Test Negative 06/14/17 02:12: Urine Color Straw, Urine Clarity Clear, Urine pH 7.0, Ur Specific [place] 1.010, Urine Protein 100 H, Urine Glucose (UA) Normal, Urine Ketones Negative, Urine Occult Blood 25 H, Urine Nitrite Negative, Urine Bilirubin Negative, Urine Urobilinogen Normal, Ur Leukocyte Esterase Negative 06/14/17 06:40: Troponin I 13.80 H* 06/14/17 06:40: PT 16.5 H, INR 1.3, APTT 41.1 H 06/14/17 09:00: APTT 42.8 H 06/14/17 09:00: D-Dimer Quant (PE/DVT) < 0.27 L 06/14/17 15:05: APTT 40.0 H Current Medications Acetaminophen (Tylenol) 650 mg PO Q6H PRN PRN PRN Reason: Mild Pain (scale 0-3)/T>100.7 Last Admin: 06/14/17 05:44 Dose: 650 mg Al Hydroxide/Mg Hydroxide (Mylanta Ii) 30 ml PO Q6H PRN PRN PRN Reason: Gastric Burning Albuterol Sulfate (Ventolin Aerosols) 2.5 mg INHALATION Q2H PRN PRN PRN Reason: SHORTNESS OF BREATH Albuterol/Ipratropium (Duoneb) 3 ml INHALATION Q4HWA.RT MOISES Last Admin: 06/14/17 15:13 Dose: 3 ml Aspirin (Aspirin, Baby) 81 mg PO DAILY@0800 [facility] Last Admin: 06/14/17 08:27 Dose: 81 mg Bisacodyl (Dulcolax) 10 mg RECTAL DAILY PRN PRN PRN Reason: Constipation Buspirone HCl (Buspar) 7.5 mg PO BID [facility] Last Admin: 06/14/17 09:51 Dose: 7.5 mg Clopidogrel Bisulfate (Plavix) 75 mg PO DAILY [facility] Docusate Sodium (Colace) 100 mg PO BID PRN PRN Reason: Constipation Folic Acid (Folic Acid) 1 mg PO DAILY@0800 [facility] Last Admin: 06/14/17 08:27 Dose: 1 mg Furosemide (Lasix) 40 mg IV Q8 [facility] Last Admin: 06/14/17 13:48 Dose: 40 mg Gabapentin (Neurontin) 100 mg PO BIDCM [facility] Last Admin: 06/14/17 08:27 Dose: 100 mg Guaifenesin (Mucinex) 1,200 mg PO BID [facility] Last Admin: 06/14/17 09:51 Dose: 1,200 mg Heparin Sodium (Porcine) () 0 units IV UD PRN PRN Reason: Protocol Last Admin: 06/14/17 02:57 Dose: 1,000 units Hydroxyzine HCl (Atarax Tablet) 10 mg PO TID PRN PRN Reason: Anxiety/itching Heparin Sodium/Dextrose () 25,000 units in 250 mls @ 10 mls/hr IV .Q25H [facility]; As Directed PRN Reason: Protocol Last Admin: 06/13/17 20:31 Dose: 10 mls/hr Levothyroxine Sodium (Synthroid) 25 mcg PO DAILY@0600 [facility] Last Admin: 06/14/17 05:42 Dose: 25 mcg Lisinopril (Zestril) 5 mg PO DAILY [facility] Last Admin: 06/14/17 05:44 Dose: 5 mg Methylprednisolone (Solu-Medrol) 40 mg IV Q8 [facility] Last Admin: 06/14/17 13:48 Dose: 40 mg Metoprolol Tartrate (Lopressor (Beta Garrett)) 25 mg PO BID [facility] Last Admin: 06/14/17 05:43 Dose: 25 mg Morphine Sulfate () 1 mg IV Q4H PRN PRN PRN Reason: SEVERE PAIN (6-10/10) Ondansetron HCl (Zofran) 4 mg IV Q8H PRN PRN PRN Reason: Nausea Oxybutynin Chloride (Ditropan) 5 mg PO DAILY [facility] Last Admin: 06/14/17 09:51 Dose: 5 mg Pantoprazole Sodium (Protonix) 40 mg PO DAILY [facility] Last Admin: 06/14/17 09:51 Dose: 40 mg Polyethylene Glycol (Miralax) 17 gm PO DAILY [facility] Last Admin: 06/14/17 09:52 Dose: Not Given Potassium [facility] Sodium Chloride () 5 - 30 ml IV UD PRN PRN Reason: SALINE FLUSH Last Admin: 06/14/17 13:48 Dose: 10 ml Tramadol HCl (Ultram) 50 mg PO Q6H PRN PRN PRN Reason: MODERATE PAIN (4-5/10) Last Admin: 06/14/17 08:27 Dose: 50 mg Venlafaxine HCl (Effexor Xr) 150 mg PO DAILY [facility] Last Admin: 06/14/17 09:51 Dose: 150 mg Medical Necessity - Tobacco Use Smoking Status: Current every day smoker Tobacco Use: Cigarettes Assessment/Plan Active and Suspected Problems CHF exacerbation (Acute) COPD exacerbation (Acute) Elevated troponin (Acute) Abnormal EKG (Acute) 1. Acute on chronic heart failure ; we will continue on IV diuresis. 2. Troponin elevation consistent with NSTEMI; patient is to undergo left heart catheterization. 3. Acute COPD exacerbation; continue on bronchodilators,will change to prednisone 4. history of PE; on Coumadin with subtherapeutic INR, she is IV heparin drip. 5. bilateral lower extremity lymphedema ; keep legs elevated, IV Lasix as ordered. Code Visit Inpatient E&M: 00251 Subs Hosp L2
--- NOTE | 2017-06-14 16:07 | PN_ITS ---
Patient Problems: Active and Suspected Problems CHF exacerbation (Acute) COPD exacerbation (Acute) Elevated troponin (Acute) Abnormal EKG (Acute) Subjective: CC: Shortness of breath Objective: The patient is a 52-year-old female who presents with shortness of breath, she is found to have acute congestive heart failure and elevated troponin consistent with NSTEMI. She currently denies any chest pain , dizziness , rapid heartbeat or palpitations. Vitals/I&O's: Vital Signs Temp Pulse Resp BP Pulse Ox 98 F 82 18 107/70 89 06/14/17 13:20 06/14/17 15:13 06/14/17 15:13 06/14/17 13:20 06/14/17 13:20 Oxygen Flow Rate (L/min) 6 Oxygen Delivery Method Nasal Cannula Weight: 137.6 kg Body Mass Index (BMI) 50.8 Intake and Output for Last 24 Hours 06/12/17 06/13/17 06/14/17 23:59 23:59 23:59 Intake Total 779.9 / 779.9 Output Total 8275 / 8275 Balance -7495.1 / -7495.1 General: Alert, Oriented x3 Neck: Supple Lungs: Clear to auscultation Cardiovascular: Regular rate, Normal S1, Normal S2 Abdomen: Bowel Sounds Present, Soft, Non-Distended Microbiology Past 72 Hours 06/13/17 21:12 Mucosa - Nasopharyngeal Influenza Types A,B Direct FA (ANGELA) - Final Laboratory Results 06/13/17 21:45: Troponin I 23.30 H* 06/14/17 02:05: WBC 7.6, RBC 7.64 H, Hgb 15.4 H, Hct 54.1 H, MCV 70.8 L, MCH 20.2 L, MCHC 28.5 L, RDW 22.2 H, RDW Differential 54.8 H, Plt Count 184, MPV 9.0 , Immature Gran % (Auto) 0.100, Neut % (Auto) 89.9 H, Lymph % (Auto) 7.5 L, [place] % (Auto) 2.4, Eos % (Auto) 0.0, Baso % (Auto) 0.1, Absolute Neuts (auto) 6.8, Absolute Lymphs (auto) 0.57 L, Total Counted Not Reportable, Differential Comment SCANNED, Polychromasia RARE, Anisocytosis 2+ 05/02/18 02:05: Sodium 141, Potassium 3.5, Chloride 100, Carbon Dioxide 33.0 H, Anion Gap 8, BUN 16, Creatinine 1.13 H, Estim Creat Clear Calc 53.28, Est GFR ( MDRD) Af Amer 65, Est GFR (MDRD) Non-Af 53 L, BUN/Creatinine Ratio 14.2, Glucose 145 H, Calcium 8.9, Total Bilirubin 0.70, Direct Bilirubin 0.21, AST 76 H, ALT 22, Alkaline Phosphatase 99, Total Protein 7.6, Albumin 3.2, Globulin 4.4 H, Triglycerides 78, Cholesterol 174, LDL Cholesterol 112, VLDL Cholesterol 16, HDL Cholesterol 46, TSH 0.61 06/14/17 02:05: Troponin I 19.20 H* 06/14/17 02:05: APTT 38.3 H 06/14/17 02:12: Urine Test Negative 06/14/17 02:12: Urine Color Straw, Urine Clarity Clear, Urine pH 7.0, Ur Specific [place] 1.010, Urine Protein 100 H, Urine Glucose (UA) Normal, Urine Ketones Negative, Urine Occult Blood 25 H, Urine Nitrite Negative, Urine Bilirubin Negative, Urine Urobilinogen Normal, Ur Leukocyte Esterase Negative 06/14/17 06:40: Troponin I 13.80 H* 06/14/17 06:40: PT 16.5 H, INR 1.3, APTT 41.1 H 06/14/17 09:00: APTT 42.8 H 06/14/17 09:00: D-Dimer Quant (PE/DVT) < 0.27 L 06/14/17 15:05: APTT 40.0 H Current Medications Acetaminophen (Tylenol) 650 mg PO Q6H PRN PRN PRN Reason: Mild Pain (scale 0-3)/T>100.7 Last Admin: 06/14/17 05:44 Dose: 650 mg Al Hydroxide/Mg Hydroxide (Mylanta Ii) 30 ml PO Q6H PRN PRN PRN Reason: Gastric Burning Albuterol Sulfate (Ventolin Aerosols) 2.5 mg INHALATION Q2H PRN PRN PRN Reason: SHORTNESS OF BREATH Albuterol/Ipratropium (Duoneb) 3 ml INHALATION Q4HWA.RT MOISES Last Admin: 06/14/17 15:13 Dose: 3 ml Aspirin (Aspirin, Baby) 81 mg PO DAILY@0800 [facility] Last Admin: 06/14/17 08:27 Dose: 81 mg Bisacodyl (Dulcolax) 10 mg RECTAL DAILY PRN PRN PRN Reason: Constipation Buspirone HCl (Buspar) 7.5 mg PO BID [facility] Last Admin: 06/14/17 09:51 Dose: 7.5 mg Clopidogrel Bisulfate (Plavix) 75 mg PO DAILY [facility] Docusate Sodium (Colace) 100 mg PO BID PRN PRN Reason: Constipation Folic Acid (Folic Acid) 1 mg PO DAILY@0800 [facility] Last Admin: 06/14/17 08:27 Dose: 1 mg Furosemide (Lasix) 40 mg IV Q8 [facility] Last Admin: 06/14/17 13:48 Dose: 40 mg Gabapentin (Neurontin) 100 mg PO BIDCM [facility] Last Admin: 06/14/17 08:27 Dose: 100 mg Guaifenesin (Mucinex) 1,200 mg PO BID [facility] Last Admin: 06/14/17 09:51 Dose: 1,200 mg Heparin Sodium (Porcine) () 0 units IV UD PRN PRN Reason: Protocol Last Admin: 06/14/17 02:57 Dose: 1,000 units Hydroxyzine HCl (Atarax Tablet) 10 mg PO TID PRN PRN Reason: Anxiety/itching Heparin Sodium/Dextrose () 25,000 units in 250 mls @ 10 mls/hr IV .Q25H [facility]; As Directed PRN Reason: Protocol Last Admin: 06/13/17 20:31 Dose: 10 mls/hr Levothyroxine Sodium (Synthroid) 25 mcg PO DAILY@0600 [facility] Last Admin: 06/14/17 05:42 Dose: 25 mcg Lisinopril (Zestril) 5 mg PO DAILY [facility] Last Admin: 06/14/17 05:44 Dose: 5 mg Methylprednisolone (Solu-Medrol) 40 mg IV Q8 [facility] Last Admin: 06/14/17 13:48 Dose: 40 mg Metoprolol Tartrate (Lopressor (Beta Garrett)) 25 mg PO BID [facility] Last Admin: 06/14/17 05:43 Dose: 25 mg Morphine Sulfate () 1 mg IV Q4H PRN PRN PRN Reason: SEVERE PAIN (6-10/10) Ondansetron HCl (Zofran) 4 mg IV Q8H PRN PRN PRN Reason: Nausea Oxybutynin Chloride (Ditropan) 5 mg PO DAILY [facility] Last Admin: 06/14/17 09:51 Dose: 5 mg Pantoprazole Sodium (Protonix) 40 mg PO DAILY [facility] Last Admin: 06/14/17 09:51 Dose: 40 mg Polyethylene Glycol (Miralax) 17 gm PO DAILY [facility] Last Admin: 06/14/17 09:52 Dose: Not Given Pot[facility] Sodium Chloride () 5 - 30 ml IV UD PRN PRN Reason: SALINE FLUSH Last Admin: 06/14/17 13:48 Dose: 10 ml Tramadol HCl (Ultram) 50 mg PO Q6H PRN PRN PRN Reason: MODERATE PAIN (4-5/10) Last Admin: 06/14/17 08:27 Dose: 50 mg Venlafaxine HCl (Effexor Xr) 150 mg PO DAILY [facility] Last Admin: 06/14/17 09:51 Dose: 150 mg Medical Necessity - Tobacco Use Smoking Status: Current every day smoker Tobacco Use: Cigarettes Assessment/Plan Active and Suspected Problems CHF exacerbation (Acute) COPD exacerbation (Acute) Elevated troponin (Acute) Abnormal EKG (Acute) 1. Acute on chronic heart failure ; we will continue on IV diuresis. 2. Troponin elevation consistent with NSTEMI; patient is to undergo left heart catheterization. 3. Acute COPD exacerbation; continue on bronchodilators,will change to prednisone 4. history of PE; on Coumadin with subtherapeutic INR, she is IV heparin drip. 5. bilateral lower extremity lymphedema ; keep legs elevated, IV Lasix as ordered. Code Visit Inpatient E&M: 97409 Subs Hosp L2
[2017-06-14] MEDS: HEPARIN/D5w 25,000 UNITS 25,000 UNITS/250 ML IV.SOLN. 15 UNITS IV (16:25)
[2017-06-14 22:56] LABS: Partial Thromboplast Time 43.6 Seconds (24.1-36.2)
[2017-06-15] VITALS (17 sets, daily range): BP systolic 120–147; BP diastolic 64–97; PULSE 63–84; RESP 16–20; TEMP 36.8–37.2; O2SAT 89–92
[2017-06-15] MEDS: traMADol 50 MG Tablet PO ×3 (00:12→20:06)
--- NOTE | 2017-06-15 04:00 | EKG12_ITS ---
Test Reason : AM EKG Blood Pressure : / mmHG Vent. Rate : 064 BPM Atrial Rate : 064 BPM P-R Int : 150 ms QRS Dur : 112 ms QT Int : 438 ms P-R-T Axes : 058 106 011 degrees QTc Int : 451 ms Normal sinus rhythm ST & T wave abnormality, consider anterior ischemia Abnormal ECG When compared with ECG of 13-JUN-2017 21:34, MANUAL COMPARISON REQUIRED, DATA IS UNCONFIRMED Confirmed by JM BONILLA, BRODY ([id number]), staff editor YAMILKA HEIN ([id number]) on 06/19/2017 2:35:12 PM Referred By: DR BARTON Confirmed By:BRODY ONEAL MD
[2017-06-15 05:36] LABS: Hematocrit 52.1 % (37-47); Hemoglobin 14.7 g/dl (12.0-15.0); Mean Corp Hgb Conc 28.2 g/gl (32-36); Mean Corpuscular Hgb 19.8 pg (27.0-32.0); Mean Corpuscular Volume 70.2 fL (81-99); Mean Platelet Vol. 9.4 fl (6.2-12.0); Platelet Count 273 K/mm3 (150-450); White Blood Count 10.7 K/mm3 (4.4-11.0)
[2017-06-15 05:37] LABS: Red Blood Count 7.42 M/mm3 (4.2-5.4)
[2017-06-15 05:38] LABS: Scan Indicated on CBC? Y/N YES- FLAGS NOTED
[2017-06-15] MEDS: Furosemide 40 MG/4 ML Vial IV ×3 (05:41→22:50)
[2017-06-15] MEDS: Levothyroxine 25 MCG TABLET PO (05:41)
[2017-06-15] MEDS: Lisinopril 5 MG Tablet PO (05:44)
[2017-06-15] MEDS: Metoprolol Tartrate 25 MG Tablet PO ×2 (05:44→22:50)
[2017-06-15] MEDS: Clopidogrel Bisulfate 75 MG Tablet PO (05:44)
[2017-06-15 05:45] LABS: Anion Gap 4 (5-15); BUN 23 mg/dL (7-18); Calcium,Total 8.7 mg/dL (8.5-10.1); Chloride 95 mmol/L (98-107); Creatinine, Serum 1.15 mg/dL (0.55-1.02); EST Glomerular Filtration Rate 52 mL/min (>60); Est Glom Filt Rate - Afr Amer 63 mL/min (>60); Estimated Creatinine Clearance 52.35 ml/min; Glucose 116 mg/dL (74-106); Sodium Level 141 mmol/L (136-145)
[2017-06-15] MEDS: Aspirin 81 MG TAB.CHEW PO (05:46)
[2017-06-15 05:54] LABS: International Normalized Ratio 1.3; Prothrombin Time (Protime)PT. 16.3 SECONDS (11.7-14.9)
[2017-06-15] MEDS: Albuterol 2.5 MG/3 ML VIAL.NEB. INHALATION (06:54)
--- NOTE | 2017-06-15 10:00 | PCM.PN.CARD ---
Subjectve: Patient doing much better today, continues to diurese but slowly. She is now able to lay down flat without difficulty, but I do not believe she can do so for more than an hour as of this morning. Has diuresed approximately 10 L of fluid since admission. Still maintaining IV Lasix. Lower extremity edema has markedly improved but not quite completely resolved. Telemetry last night showed normal sinus rhythm with 8 beats of wide-complex tachycardia self resolving. No chest pain. Objective: Vital Signs Temp Pulse Resp BP Pulse Ox 98.3 F 72 18 121/78 H 92 06/15/17 05:30 06/15/17 07:16 06/15/17 07:10 06/15/17 05:30 06/15/17 07:10 Oxygen Flow Rate (L/min) 6 Oxygen Delivery Method Nasal Cannula Weight: 298 lb 1.039 oz Body Mass Index (BMI) 50.8 Intake and Output for Last 24 Hours 06/13/17 06/14/17 06/15/17 23:59 23:59 23:59 Intake Total 1785.8 / 1785.8 107 / 107 Output Total 67252 / 67334 700 / 700 Balance -9139.2 / -9139.2 -593 / -593 General: Awake, Alert, Oriented x 3 HEENT: PERRL, EOMI, Sclera Non Icteric Neck: Supple, Good ROM, No Lymph Node Enlargement Lungs: Clear to auscultation Cardiovascular: Regular Rhythm, Normal S1, Normal S2, No Murmurs, No Rubs, No Gallops Vascular: No Carotid Bruits, Normal Femoral Pulses, Normal Radial Pulses, Normal Dorsalis Pedal Pulse, Normal Posterior Tibial Pulses Abdomen: Bowel Sounds Present, Soft, Non Tender, No HSM, No Organomegaly Extremities: No Cyanosis, No Clubbing, No edema Neurological: No Focal Motor or Sensory Deficit 06/14/17 15:05: APTT 40.0 H 06/14/17 22:30: APTT 43.6 H 06/15/17 05:00: WBC 10.7, RBC 7.42 H, Hgb 14.7, Hct 52.1 H, MCV 70.2 L, MCH 19.8 L, MCHC 28.2 L, RDW 24.0 H, RDW Differential 60.0 H, Plt Count 273, MPV 9.4 06/15/17 05:00: PT 16.3 H, INR 1.3, APTT 41.0 H 06/15/17 05:00: Sodium 141, Potassium 4.0, Chloride 95 L, Carbon Dioxide 42.0 H, Anion Gap 4 L, BUN 23 H, Creatinine 1.15 H, Est GFR (MDRD) Af Amer 63, Est GFR (MDRD) Non-Af 52 L, BUN/Creatinine Ratio 20.0, Glucose 116 H, Calcium 8.7 Rhythm: EKG: ECHO: Stress Test: Cardiac Cath: PCI: CT Surgery: Holter monitor: EPS: PPM: CXR: Chest CT Scan: Medical Necessity - Tobacco Use Smoking Status: Current every day smoker Tobacco Use: Cigarettes Assessment/Plan 1. Coronary artery disease: The patient presented with acute exacerbation of her shortness of breath, medical noncompliance not taking her Lasix for the past 2 months, and was on a copious amount of Lasix in the form of 80 mg p.o. 3 times a day. The patient is never seen a program director substance abuse according to her, and has never undergone a catheterization. Patient presented on day of admission without any chest pain but did have subtle inferolateral ST segment elevation which did not reach criteria for STEMI, and the patient's peak troponin thus far is 23 and trending downwards to 13. As the patient was unable to lay down flat for a CAT scan, and the fact that she had absolutely no chest pain, General Maintenance Mechanic evaluation was deferred. Patient is diuresed approximately 10 L since admission, he continues to be in negative balance with IV diuretic therapy. Her creatinine is within acceptable limits. Today she is able to lay down flat and feels much better but I do not believe he should be able to lay down for more than an hour. I recommended 1 more day of IV diuretic therapy and diagnostic left her catheterization tomorrow. She has already been loaded with Plavix, and continues Plavix 75 mg daily. Repeat echocardiogram done 06/14/17 showed intact LV function, D-shaped left ventricle consistent with significant pulmonary hypertension, significant RV enlargement, and an RVSP of approximately 53 mmHg. This is improved since her last echocardiogram at which time her RVSP was 73 mmHg. She has a known history of normal LV size and function as well as severe pulmonary hypertension in February 2017. Patient supposedly has an allergy to aspirin although she received aspirin in the ER without any difficulty. Would recommend continuing baby aspirin going forward, and loading the patient with Plavix given her abnormal troponin. She was given 300 mg of Plavix this morning followed by 75 mg a day. 2. Pulmonary hypertension: The patient may benefit from more aggressive diuresis in the form of Bumex combined with periodic metolazone to maintain her ideal fluid balance. In addition she will most likely benefit from an Eliquis or Xarelto based medication as she was subtherapeutic on her Coumadin and was allegedly taking at home. Patient was on 10 mg of Coumadin which was not effective to maintain her INR above 1.3. Continue IV heparin for the above risk factors. Also her d-dimer is negative, so it is unlikely that she had a repeat pulmonary embolism. 3. Hyperlipidemia: Her LDL is 112, HDL is 46. Recommend starting Lipitor 40 mg p.o. nightly and repeating lipid profile in 6 weeks time. 4. Thank you very much for the opportunity to participate in the cardiac care of your patient. Left heart catheterization to be performed tomorrow morning. Code Visit Inpatient E&M: 95465 Subs Hosp L2
[2017-06-15] MEDS: Folic Acid 1 MG Tablet PO (10:04)
[2017-06-15] MEDS: busPIRone 5 MG Tablet 7.5 MG PO ×2 (10:05→22:49)
[2017-06-15] MEDS: Gabapentin 100 MG Capsule PO ×2 (10:05→16:53)
[2017-06-15] MEDS: Oxybutynin 5 MG Tablet PO (10:05)
[2017-06-15] MEDS: Venlafaxine XR 150 MG Capsule PO (10:05)
--- NOTE | 2017-06-15 10:05 | PN.CARD_ITS ---
Subjectve: Patient doing much better today, continues to diurese but slowly. She is now able to lay down flat without difficulty, but I do not believe she can do so for more than an hour as of this morning. Has diuresed approximately 10 L of fluid since admission. Still maintaining IV Lasix. Lower extremity edema has markedly improved but not quite completely resolved. Telemetry last night showed normal sinus rhythm with 8 beats of wide-complex tachycardia self resolving. No chest pain. Objective: Vital Signs Temp Pulse Resp BP Pulse Ox 98.3 F 72 18 121/78 H 92 06/15/17 05:30 06/15/17 07:16 06/15/17 07:10 06/15/17 05:30 06/15/17 07:10 Oxygen Flow Rate (L/min) 6 Oxygen Delivery Method Nasal Cannula Weight: 298 lb 1.039 oz Body Mass Index (BMI) 50.8 Intake and Output for Last 24 Hours 06/13/17 06/14/17 06/15/17 23:59 23:59 23:59 Intake Total 1785.8 / 1785.8 107 / 107 Output Total 54554 / 40962 700 / 700 Balance -9139.2 / -9139.2 -593 / -593 General: Awake, Alert, Oriented x 3 HEENT: PERRL, EOMI, Sclera Non Icteric Neck: Supple, Good ROM, No Lymph Node Enlargement Lungs: Clear to auscultation Cardiovascular: Regular Rhythm, Normal S1, Normal S2, No Murmurs, No Rubs, No Gallops Vascular: No Carotid Bruits, Normal Femoral Pulses, Normal Radial Pulses, Normal Dorsalis Pedal Pulse, Normal Posterior Tibial Pulses Abdomen: Bowel Sounds Present, Soft, Non Tender, No HSM, No Organomegaly Extremities: No Cyanosis, No Clubbing, No edema Neurological: No Focal Motor or Sensory Deficit 06/14/17 15:05: APTT 40.0 H 06/14/17 22:30: APTT 43.6 H 06/15/17 05:00: WBC 10.7, RBC 7.42 H, Hgb 14.7, Hct 52.1 H, MCV 70.2 L, MCH 19.8 L, MCHC 28.2 L, RDW 24.0 H, RDW Differential 60.0 H, Plt Count 273, MPV 9.4 06/15/17 05:00: PT 16.3 H, INR 1.3, APTT 41.0 H 06/15/17 05:00: Sodium 141, Potassium 4.0, Chloride 95 L, Carbon Dioxide 42.0 H , Anion Gap 4 L, BUN 23 H, Creatinine 1.15 H, Est GFR (MDRD) Af Amer 63, Est GFR (MDRD) Non-Af 52 L, BUN/Creatinine Ratio 20.0, Glucose 116 H, Calcium 8.7 Rhythm: EKG: ECHO: Stress Test: Cardiac Cath: PCI: CT Surgery: Holter monitor: EPS: PPM: CXR: Chest CT Scan: Medical Necessity - Tobacco Use Smoking Status: Current every day smoker Tobacco Use: Cigarettes Assessment/Plan 1. Coronary artery disease: The patient presented with acute exacerbation of her shortness of breath, medical noncompliance not taking her Lasix for the past 2 months, and was on a copious amount of Lasix in the form of 80 mg p.o. 3 times a day. The patient is never seen a production control coordinating clerk according to her, and has never undergone a catheterization. Patient presented on day of admission without any chest pain but did have subtle inferolateral ST segment elevation which did not reach criteria for STEMI , and the patient's peak troponin thus far is 23 and trending downwards to 13. As the patient was unable to lay down flat for a CAT scan, and the fact that she had absolutely no chest pain, Professor Of Art evaluation was deferred. Patient is diuresed approximately 10 L since admission, he continues to be in negative balance with IV diuretic therapy. Her creatinine is within acceptable limits. Today she is able to lay down flat and feels much better but I do not believe he should be able to lay down for more than an hour. I recommended 1 more day of IV diuretic therapy and diagnostic left her catheterization tomorrow. She has already been loaded with Plavix, and continues Plavix 75 mg daily. Repeat echocardiogram done 06/14/17 showed intact LV function, D-shaped left ventricle consistent with significant pulmonary hypertension, significant RV enlargement, and an RVSP of approximately 53 mmHg. This is improved since her last echocardiogram at which time her RVSP was 73 mmHg. She has a known history of normal LV size and function as well as severe pulmonary hypertension in February 2017. Patient supposedly has an allergy to aspirin although she received aspirin in the ER without any difficulty. Would recommend continuing baby aspirin going forward, and loading the patient with Plavix given her abnormal troponin. She was given 300 mg of Plavix this morning followed by 75 mg a day. 2. Pulmonary hypertension: The patient may benefit from more aggressive diuresis in the form of Bumex combined with periodic metolazone to maintain her ideal fluid balance. In addition she will most likely benefit from an Eliquis or Xarelto based medication as she was subtherapeutic on her Coumadin and was allegedly taking at home. Patient was on 10 mg of Coumadin which was not effective to maintain her INR above 1.3. Continue IV heparin for the above risk factors. Also her d-dimer is negative, so it is unlikely that she had a repeat pulmonary embolism. 3. Hyperlipidemia: Her LDL is 112, HDL is 46. Recommend starting Lipitor 40 mg p.o. nightly and repeating lipid profile in 6 weeks time. 4. Thank you very much for the opportunity to participate in the cardiac care of your patient. Left heart catheterization to be performed tomorrow morning. Code Visit Inpatient E&M: 40164 Subs Hosp L2
[2017-06-15] MEDS: hydrOXYzine 10 MG Tablet PO ×2 (10:06→20:08)
[2017-06-15] MEDS: guaiFENesin 1,200 MG Tablet 1200 MG PO ×2 (10:06→22:50)
[2017-06-15] MEDS: Pantoprazole Sodium 40 MG Tablet PO (10:06)
[2017-06-15] MEDS: HEPARIN/D5w 25,000 UNITS 25,000 UNITS/250 ML IV.SOLN. 17 UNITS IV (11:26)
[2017-06-15 12:55] LABS: Partial Thromboplast Time 42.2 Seconds (24.1-36.2)
[2017-06-15] MEDS: Ipratropium/Albuterol Sulfate 3 ML AMPUL.NEB INHALATION ×2 (15:45→18:58)
--- NOTE | 2017-06-15 15:46 | CHAPLAIN ---
Type of Pastoral Visit _x__ Initial Visit ___ Follow-up Visit ___ On-call Visit ___ General Patient Visit ___ Spiritual Assessment ___ Family Conference ___ Bereavement ___ Rapid Response ___ Code Blue ___ Other (describe below) Pastoral Care Referral From _x__ Patient ___ Family ___ Nurse ___ Physician ___ Grill Attendant ___ Ecological Technical Officer ___ Other (describe below) Sacrament/Intervention _x__ Active listening ___ Anointing ___ Gnosticism ___ Bereavement ___ Communion ___ Kimberly exploration ___ ___ Life review _x__ Prayer ___ Reconciliation ___ Sacrament of Sick ___ Supportive presence ___ Wedding ___ Other (describe below) Pastoral Comments
--- NOTE | 2017-06-15 17:28 | PCM.PN.HOSP ---
Patient Problems: Active and Suspected Problems CHF exacerbation (Acute) COPD exacerbation (Acute) Elevated troponin (Acute) Abnormal EKG (Acute) Subjective: Cc: dyspnea Objective: The patient reports improved dyspnea, she denies any chest pain, fever ,chills ,cough or sputum production. Vitals/I&O's: Vital Signs Temp Pulse Resp BP Pulse Ox 99.0 F 69 18 130/64 H 90 06/15/17 13:30 06/15/17 13:30 06/15/17 13:30 06/15/17 13:30 06/15/17 13:30 Oxygen Flow Rate (L/min) 5 Oxygen Delivery Method Nasal Cannula Weight: 135.2 kg Body Mass Index (BMI) 50.8 Intake and Output for Last 24 Hours 06/13/17 06/14/17 06/15/17 23:59 23:59 23:59 Intake Total 1785.8 / 1785.8 157 / 157 Output Total 89461 / 63300 1700 / 1700 Balance -9139.2 / -9139.2 -1543 / -1543 General: Alert, Oriented x3 HEENT: Atraumatic Oral: Moist Mucosa Neck: Supple Lungs: Clear to auscultation Cardiovascular: Regular rate, Regular Rhythm, Normal S1, Normal S2 Abdomen: Bowel Sounds Present, Soft, Non Tender, Non-Distended Extremities: No edema Neurological: Cranial nerves II-XII grossly intact, Motor Exam 5/5 strength throughout Psych/Mental Status: Normal Affect Microbiology Past 72 Hours 06/13/17 21:12 Mucosa - Nasopharyngeal Influenza Types A,B Direct FA (ANGELA) - Final Laboratory Results 06/14/17 22:30: APTT 43.6 H 06/15/17 05:00: WBC 10.7, RBC 7.42 H, Hgb 14.7, Hct 52.1 H, MCV 70.2 L, MCH 19.8 L, MCHC 28.2 L, RDW 24.0 H, RDW Differential 60.0 H, Plt Count 273, MPV 9.4, Differential Comment 06/15/17 05:00: PT 16.3 H, INR 1.3, APTT 41.0 H 06/15/17 05:00: Sodium 141, Potassium 4.0, Chloride 95 L, Carbon Dioxide 42.0 H, Anion Gap 4 L, BUN 23 H, Creatinine 1.15 H, Estim Creat Clear Calc 52.35, Est GFR (MDRD) Af Amer 63, Est GFR (MDRD) Non-Af 52 L, BUN/Creatinine Ratio 20.0, Glucose 116 H, Calcium 8.7 06/15/17 12:40: APTT 42.2 H Current Medications Acetaminophen (Tylenol) 650 mg PO Q6H PRN PRN PRN Reason: Mild Pain (scale 0-3)/T>100.7 Last Admin: 06/14/17 05:44 Dose: 650 mg Al Hydroxide/Mg Hydroxide (Mylanta Ii) 30 ml PO Q6H PRN PRN PRN Reason: Gastric Burning Albuterol Sulfate (Ventolin Aerosols) 2.5 mg INHALATION Q2H PRN PRN PRN Reason: SHORTNESS OF BREATH Last Admin: 06/15/17 06:54 Dose: 2.5 mg Albuterol/Ipratropium (Duoneb) 3 ml INHALATION Q4HWA.RT [facility] Last Admin: 06/15/17 15:45 Dose: 3 ml Aspirin (Aspirin, Baby) 81 mg PO DAILY@0800 [facility] Last Admin: 06/15/17 05:46 Dose: 81 mg Bisacodyl (Dulcolax) 10 mg RECTAL DAILY PRN PRN PRN Reason: Constipation Buspirone HCl (Buspar) 7.5 mg PO BID [facility] Last Admin: 06/15/17 10:05 Dose: 7.5 mg Clopidogrel Bisulfate (Plavix) 75 mg PO DAILY [facility] Last Admin: 06/15/17 05:44 Dose: 75 mg Diphenhydramine HCl (Benadryl) 50 mg PO X1 ONE Stop: 06/16/17 06:01 Docusate Sodium (Colace) 100 mg PO BID PRN PRN Reason: Constipation Folic Acid (Folic Acid) 1 mg PO DAILY@0800 [facility] Last Admin: 06/15/17 10:04 Dose: 1 mg Furosemide (Lasix) 40 mg IV Q8 [facility] Last Admin: 06/15/17 13:31 Dose: 40 mg Gabapentin (Neurontin) 100 mg PO BIDCM [facility] Last Admin: 06/15/17 16:53 Dose: 100 mg Guaifenesin (Mucinex) 1,200 mg PO BID [facility] Last Admin: 06/15/17 10:06 Dose: 1,200 mg Heparin Sodium (Porcine) () 0 units IV UD PRN PRN Reason: Protocol Last Admin: 06/14/17 16:22 Dose: 1,000 units Hydroxyzine HCl (Atarax Tablet) 10 mg PO TID PRN PRN Reason: Anxiety/itching Last Admin: 06/15/17 10:06 Dose: 10 mg Heparin Sodium/Dextrose () 25,000 units in 250 mls @ 10 mls/hr IV .Q25H [facility]; As Directed PRN Reason: Protocol Last Admin: 06/15/17 11:26 Dose: 17 mls/hr Sodium Chloride () 1,000 mls @ 0 mls/hr IV .Q0M [facility] PRN Reason: KVO Levothyroxine Sodium (Synthroid) 25 mcg PO DAILY@0600 [facility] Last Admin: 06/15/17 05:41 Dose: 25 mcg Lisinopril (Zestril) 5 mg PO DAILY [facility] Last Admin: 06/15/17 05:44 Dose: 5 mg Methylprednisolone (Solu-Medrol) 40 mg IV Q8 [facility] Last Admin: 06/15/17 13:31 Dose: 40 mg Metoprolol Tartrate (Lopressor (Beta Garrett)) 25 mg PO BID [facility] Last Admin: 06/15/17 05:44 Dose: 25 mg Morphine Sulfate () 1 mg IV Q4H PRN PRN PRN Reason: SEVERE PAIN (6-10/10) Ondansetron HCl (Zofran) 4 mg IV Q8H PRN PRN PRN Reason: Nausea Oxybutynin Chloride (Ditropan) 5 mg PO DAILY [facility] Last Admin: 06/15/17 10:05 Dose: 5 mg Pantoprazole Sodium (Protonix) 40 mg PO DAILY [facility] Last Admin: 06/15/17 10:06 Dose: 40 mg Polyethylene Glycol (Miralax) 17 gm PO DAILY [facility] Last Admin: 06/15/17 10:06 Dose: Not Given Potassium [facility] ([facility]) [facility] Last Admin: 06/15/17 10:04 Dose: 20 meq Sodium Chloride () 5 - 30 ml IV UD PRN PRN Reason: SALINE FLUSH Last Admin: 06/14/17 13:48 Dose: 10 ml Tramadol HCl (Ultram) 50 mg PO Q6H PRN PRN PRN Reason: MODERATE PAIN (4-5/10) Last Admin: 06/15/17 10:09 Dose: 50 mg Venlafaxine HCl (Effexor Xr) 150 mg PO DAILY [facility] Last Admin: 06/15/17 10:05 Dose: 150 mg Medical Necessity - Tobacco Use Smoking Status: Current every day smoker Tobacco Use: Cigarettes Assessment/Plan Active and Suspected Problems CHF exacerbation (Acute) COPD exacerbation (Acute) Elevated troponin (Acute) Abnormal EKG (Acute) 1. Acute on chronic heart failure ; we will continue on IV diuresis. 2. Troponin elevation consistent with NSTEMI; patient is to undergo left heart catheterization in AM. . 3. Acute COPD exacerbation; continue on bronchodilators and steroids. 4. history of PE; on Coumadin with subtherapeutic INR, she is now IV heparin drip. 5. bilateral lower extremity lymphedema ; keep legs elevated, IV Lasix as ordered. 6. NSVT; we will continue to monitor her cardiac rhythm, her mag level was 1.6 on 06/13/17, we will replace with magnesium sulfate and continue beta-blockers. Code Visit Inpatient E&M: 38322 Subs Hosp L2
--- NOTE | 2017-06-15 17:33 | PN_ITS ---
Patient Problems: Active and Suspected Problems CHF exacerbation (Acute) COPD exacerbation (Acute) Elevated troponin (Acute) Abnormal EKG (Acute) Subjective: Cc: dyspnea Objective: The patient reports improved dyspnea, she denies any chest pain, fever ,chills , cough or sputum production. Vitals/I&O's: Vital Signs Temp Pulse Resp BP Pulse Ox 99.0 F 69 18 130/64 H 90 06/15/17 13:30 06/15/17 13:30 06/15/17 13:30 06/15/17 13:30 06/15/17 13:30 Oxygen Flow Rate (L/min) 5 Oxygen Delivery Method Nasal Cannula Weight: 135.2 kg Body Mass Index (BMI) 50.8 Intake and Output for Last 24 Hours 06/13/17 06/14/17 06/15/17 23:59 23:59 23:59 Intake Total 1785.8 / 1785.8 157 / 157 Output Total 71783 / 60902 1700 / 1700 Balance -9139.2 / -9139.2 -1543 / -1543 General: Alert, Oriented x3 HEENT: Atraumatic Oral: Moist Mucosa Neck: Supple Lungs: Clear to auscultation Cardiovascular: Regular rate, Regular Rhythm, Normal S1, Normal S2 Abdomen: Bowel Sounds Present, Soft, Non Tender, Non-Distended Extremities: No edema Neurological: Cranial nerves II-XII grossly intact, Motor Exam 5/5 strength throughout Psych/Mental Status: Normal Affect Microbiology Past 72 Hours 06/13/17 21:12 Mucosa - Nasopharyngeal Influenza Types A,B Direct FA (ANGELA) - Final Laboratory Results 06/14/17 22:30: APTT 43.6 H 06/15/17 05:00: WBC 10.7, RBC 7.42 H, Hgb 14.7, Hct 52.1 H, MCV 70.2 L, MCH 19.8 L, MCHC 28.2 L, RDW 24.0 H, RDW Differential 60.0 H, Plt Count 273, MPV 9.4 , Differential Comment 06/15/17 05:00: PT 16.3 H, INR 1.3, APTT 41.0 H 06/15/17 05:00: Sodium 141, Potassium 4.0, Chloride 95 L, Carbon Dioxide 42.0 H , Anion Gap 4 L, BUN 23 H, Creatinine 1.15 H, Estim Creat Clear Calc 52.35, Est GFR (MDRD) Af Amer 63, Est GFR (MDRD) Non-Af 52 L, BUN/Creatinine Ratio 20.0, Glucose 116 H, Calcium 8.7 06/15/17 12:40: APTT 42.2 H Current Medications Acetaminophen (Tylenol) 650 mg PO Q6H PRN PRN PRN Reason: Mild Pain (scale 0-3)/T>100.7 Last Admin: 06/14/17 05:44 Dose: 650 mg Al Hydroxide/Mg Hydroxide (Mylanta Ii) 30 ml PO Q6H PRN PRN PRN Reason: Gastric Burning Albuterol Sulfate (Ventolin Aerosols) 2.5 mg INHALATION Q2H PRN PRN PRN Reason: SHORTNESS OF BREATH Last Admin: 06/15/17 06:54 Dose: 2.5 mg Albuterol/Ipratropium (Duoneb) 3 ml INHALATION Q4HWA.RT [facility] Last Admin: 06/15/17 15:45 Dose: 3 ml Aspirin (Aspirin, Baby) 81 mg PO DAILY@0800 [facility] Last Admin: 06/15/17 05:46 Dose: 81 mg Bisacodyl (Dulcolax) 10 mg RECTAL DAILY PRN PRN PRN Reason: Constipation Buspirone HCl (Buspar) 7.5 mg PO BID [facility] Last Admin: 06/15/17 10:05 Dose: 7.5 mg Clopidogrel Bisulfate (Plavix) 75 mg PO DAILY [facility] Last Admin: 06/15/17 05:44 Dose: 75 mg Diphenhydramine HCl (Benadryl) 50 mg PO X1 ONE Stop: 06/16/17 06:01 Docusate Sodium (Colace) 100 mg PO BID PRN PRN Reason: Constipation Folic Acid (Folic Acid) 1 mg PO DAILY@0800 [facility] Last Admin: 06/15/17 10:04 Dose: 1 mg Furosemide (Lasix) 40 mg IV Q8 [facility] Last Admin: 06/15/17 13:31 Dose: 40 mg Gabapentin (Neurontin) 100 mg PO BIDCM [facility] Last Admin: 06/15/17 16:53 Dose: 100 mg Guaifenesin (Mucinex) 1,200 mg PO BID [facility] Last Admin: 06/15/17 10:06 Dose: 1,200 mg Heparin Sodium (Porcine) () 0 units IV UD PRN PRN Reason: Protocol Last Admin: 06/14/17 16:22 Dose: 1,000 units Hydroxyzine HCl (Atarax Tablet) 10 mg PO TID PRN PRN Reason: Anxiety/itching Last Admin: 06/15/17 10:06 Dose: 10 mg Heparin Sodium/Dextrose () 25,000 units in 250 mls @ 10 mls/hr IV .Q25H [facility]; As Directed PRN Reason: Protocol Last Admin: 06/15/17 11:26 Dose: 17 mls/hr Sodium Chloride () 1,000 mls @ 0 mls/hr IV .Q0M [facility] PRN Reason: KVO Levothyroxine Sodium (Synthroid) 25 mcg PO DAILY@0600 [facility] Last Admin: 06/15/17 05:41 Dose: 25 mcg Lisinopril (Zestril) 5 mg PO DAILY [facility] Last Admin: 06/15/17 05:44 Dose: 5 mg Methylprednisolone (Solu-Medrol) 40 mg IV Q8 [facility] Last Admin: 06/15/17 13:31 Dose: 40 mg Metoprolol Tartrate (Lopressor (Beta Garrett)) 25 mg PO BID [facility] Last Admin: 06/15/17 05:44 Dose: 25 mg Morphine Sulfate () 1 mg IV Q4H PRN PRN PRN Reason: SEVERE PAIN (6-10/10) Ondansetron HCl (Zofran) 4 mg IV Q8H PRN PRN PRN Reason: Nausea Oxybutynin Chloride (Ditropan) 5 mg PO DAILY [facility] Last Admin: 06/15/17 10:05 Dose: 5 mg Pantoprazole Sodium (Protonix) 40 mg PO DAILY [facility] Last Admin: 06/15/17 10:06 Dose: 40 mg Polyethylene Glycol (Miralax) 17 gm PO DAILY [facility] Last Admin: 06/15/17 10:06 Dose: Not Given Potassium Chlor[facility] (K-Dur) [facility] Last Admin: 06/15/17 10:04 Dose: 20 meq Sodium Chloride () 5 - 30 ml IV UD PRN PRN Reason: SALINE FLUSH Last Admin: 06/14/17 13:48 Dose: 10 ml Tramadol HCl (Ultram) 50 mg PO Q6H PRN PRN PRN Reason: MODERATE PAIN (4-5/10) Last Admin: 06/15/17 10:09 Dose: 50 mg Venlafaxine HCl (Effexor Xr) 150 mg PO DAILY [facility] Last Admin: 06/15/17 10:05 Dose: 150 mg Medical Necessity - Tobacco Use Smoking Status: Current every day smoker Tobacco Use: Cigarettes Assessment/Plan Active and Suspected Problems CHF exacerbation (Acute) COPD exacerbation (Acute) Elevated troponin (Acute) Abnormal EKG (Acute) 1. Acute on chronic heart failure ; we will continue on IV diuresis. 2. Troponin elevation consistent with NSTEMI; patient is to undergo left heart catheterization in AM. . 3. Acute COPD exacerbation; continue on bronchodilators and steroids. 4. history of PE; on Coumadin with subtherapeutic INR, she is now IV heparin drip. 5. bilateral lower extremity lymphedema ; keep legs elevated, IV Lasix as ordered. 6. NSVT; we will continue to monitor her cardiac rhythm, her mag level was 1.6 on 06/13/17, we will replace with magnesium sulfate and continue beta-blockers. Code Visit Inpatient E&M: 64367 Subs Hosp L2
[2017-06-15 19:44] LABS: Partial Thromboplast Time 45.5 Seconds (24.1-36.2)
[2017-06-15] MEDS: 0.9% NaCl Peripheral Flush Adult/Peds IV (22:59)
[2017-06-16] VITALS (26 sets, daily range): BP systolic 127–171; BP diastolic 77–97; PULSE 66–96; RESP 16–20; TEMP 36.2–36.9; O2SAT 89–94
[2017-06-16] MEDS: HEPARIN/D5w 25,000 UNITS 25,000 UNITS/250 ML IV.SOLN. 19 UNITS IV (01:58)
[2017-06-16 03:16] LABS: Hematocrit 53.1 % (37-47); Hemoglobin 15.1 g/dl (12.0-15.0); Mean Corp Hgb Conc 28.4 g/gl (32-36); Mean Corpuscular Hgb 20.1 pg (27.0-32.0); Mean Corpuscular Volume 70.6 fL (81-99); Mean Platelet Vol. 9.5 fl (6.2-12.0); Platelet Count 275 K/mm3 (150-450); RBC Distribution Width CV 24.2 % (11.6-14.6); RBC Distribution Width SD 60.3 fl (35.1-43.9); White Blood Count 11.5 K/mm3 (4.4-11.0)
[2017-06-16 03:18] LABS: Partial Thromboplast Time 47.2 Seconds (24.1-36.2)
[2017-06-16 03:19] LABS: Red Blood Count 7.52 M/mm3 (4.2-5.4); Scan Indicated on CBC? Y/N YES- FLAGS NOTED
[2017-06-16 03:43] LABS: Anion Gap 4 (5-15); BUN 30 mg/dL (7-18); BUN/Creat Ratio 25.6 RATIO (10-20); Calcium,Total 8.5 mg/dL (8.5-10.1); Chloride 95 mmol/L (98-107); Creatinine, Serum 1.17 mg/dL (0.55-1.02); EST Glomerular Filtration Rate 51 mL/min (>60); Est Glom Filt Rate - Afr Amer 62 mL/min (>60); Estimated Creatinine Clearance 51.46 ml/min; Glucose 157 mg/dL (74-106); Potassium 4.1 mmol/L (3.5-5.1); Sodium Level 140 mmol/L (136-145)
[2017-06-16 03:55] LABS: Differential Comment SCANNED
--- NOTE | 2017-06-16 05:30 | EKG12_ITS ---
Test Reason : AM EKG Blood Pressure : / mmHG Vent. Rate : 084 BPM Atrial Rate : 071 BPM P-R Int : 164 ms QRS Dur : 098 ms QT Int : 414 ms P-R-T Axes : 063 131 014 degrees QTc Int : 489 ms Sinus rhythm with occasional Premature ventricular complexes Incomplete left bundle branch block Abnormal ECG When compared with ECG of 15-JUN-2017 05:18, MANUAL COMPARISON REQUIRED, DATA IS UNCONFIRMED Confirmed by JM BONILLA, BRODY ([id number]), brands editor YAMILKA HEIN ([id number] on 06/27/2017 2:09:07 PM Referred By: MARK Confirmed By:BRODY ONEAL MD
[2017-06-16 05:37] LABS: International Normalized Ratio 1.1
[2017-06-16] MEDS: Aspirin 81 MG TAB.CHEW PO (06:12)
[2017-06-16] MEDS: 0.9% NaCl Peripheral Flush Adult/Peds IV ×3 (06:12→21:24)
[2017-06-16] MEDS: Lisinopril 5 MG Tablet PO (06:12)
[2017-06-16] MEDS: Levothyroxine 25 MCG TABLET PO (06:12)
[2017-06-16] MEDS: Clopidogrel Bisulfate 75 MG Tablet PO (06:12)
[2017-06-16] MEDS: Metoprolol Tartrate 25 MG Tablet PO ×2 (06:14→21:23)
[2017-06-16] MEDS: Ipratropium/Albuterol Sulfate 3 ML AMPUL.NEB INHALATION ×3 (07:21→19:48)
[2017-06-16] MEDS: DiphenhydrAMINE 25 MG Capsule 50 MG PO (08:32)
--- NOTE | 2017-06-16 11:48 | CL.D_ITS ---
Patient Name: NICK MARTIN Study Date: 06/16/2017 Performing: Ronnie Morales MD Ht: 66.14 inches 168 cm : 1965 Wt: 304.24 lbs 138 kg Age: 52 Gender: female BSA: 2.39 PROCEDURE(S) PERFORMED ZN74-DES/COR/LV CLINICAL PROFILE AND INDICATIONS Indications: Suspected CAD, LV Dysfunction Heart Failure: NYHA Class: 4 Stress/Imaging Stress/Image Study Performed: No Angina Classification Anginal Classification w/in 2 Weeks: CCS III CAD Presentations: Unstable angina. 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 BP check and fluid status check in 2 weeks. Pt may need periodic metolazone tx for CHF. Medical management of OM and mid LAD non-obstructive CAD. Lesions do not appear to be significant en ough to explain her significant CHF symptoms on presentation. DESCRIPTION OF PROCEDURE CORONARY ANGIOGRAPHY DOMINANCE: Right Dominant LEFT HEART ASSESSMENT Left Ventricular Ejection Fraction: by LV Gram 55 % Inferior Mid Hypokinesis - Mild Elevated Left Ventricular End Diastolic Pressure Depressed Left Ventricular systolic function LEFT MAIN: Angiographically normal LEFT ANTERIOR DECENDING ARTERY: Mild luminal irregularities less than 30% CIRCUMFLEX ARTERY: OM 1: Proximal - 50 % Stenosis RIGHT CORONARY ARTERY: Angiographically normal RT PDA: Proximal - Angiographically normal COMPLICATIONS No Complications PROCEDURE MEDICATIONS Oxygen: 6 L/min via nasal cannula SUMMARY OF HEMODYNAMIC DATA Time AIR REST ECG 11:05:49 AO 152/118 (135) SA 11:24:22 LV 164/2, 17 11:31:08 LV 160/2, 20 11:31:15 LVp 160/3, 22 11:31:20 AOp 156/92 (119) 11:31:25 Signed By Ronnie Morales MD On 06/16/2017 11:47:39 Ronnie Morales MD
[2017-06-16] MEDS: Oxybutynin 5 MG Tablet PO (12:32)
[2017-06-16] MEDS: hydrOXYzine 10 MG Tablet PO ×2 (12:32→21:42)
[2017-06-16] MEDS: Folic Acid 1 MG Tablet PO (12:33)
[2017-06-16] MEDS: busPIRone 5 MG Tablet 7.5 MG PO ×2 (12:33→21:22)
[2017-06-16] MEDS: Gabapentin 100 MG Capsule PO ×2 (12:33→18:05)
[2017-06-16] MEDS: Pantoprazole Sodium 40 MG Tablet PO (12:33)
[2017-06-16] MEDS: Venlafaxine XR 150 MG Capsule PO (12:33)
--- NOTE | 2017-06-16 12:58 | PCM.PN.HOSP ---
Patient Problems: Active and Suspected Problems CHF exacerbation (Acute) COPD exacerbation (Acute) Elevated troponin (Acute) Abnormal EKG (Acute) Subjective: CC: Follow-up on dyspnea and elevated troponin. Objective: This is a 52-year-old female who presented with progressive dyspnea and leg edema, but it was elevated consistent with NSTEMI, left heart catheterization today that showed angiographically normal coronaries and a normal ejection fraction. Vitals/I&O's: Vital Signs Temp Pulse Resp BP Pulse Ox 97.2 F L 70 16 168/94 H 94 06/16/17 11:20 06/16/17 12:50 06/16/17 12:50 06/16/17 12:50 06/16/17 12:50 Oxygen Flow Rate (L/min) 6 Oxygen Delivery Method Nasal Cannula Weight: 135.2 kg Body Mass Index (BMI) 50.8 Intake and Output for Last 24 Hours 06/14/17 06/15/17 06/16/17 23:59 23:59 23:59 Intake Total 1785.8 / 1785.8 1227 / 1227 440 / 440 Output Total 79831 / 14855 3250 / 3250 1330 / 1330 Balance -9139.2 / -9139.2 -2022 / -2023 -890 / -890 General: Alert, Oriented x3 HEENT: Atraumatic Oral: Moist Mucosa Neck: Supple, No JVD Lungs: Clear to auscultation, No wheeze Cardiovascular: Regular rate, Normal S1 Abdomen: Bowel Sounds Present, Soft, Non Tender, Non-Distended Extremities: Edema Skin: No rashes Microbiology Past 72 Hours 06/13/17 21:12 Mucosa - Nasopharyngeal Influenza Types A,B Direct FA (ANGELA) - Final Laboratory Results 06/15/17 12:40: APTT 42.2 H 06/15/17 19:08: APTT 45.5 H 06/16/17 02:35: APTT 47.2 H 06/16/17 02:35: WBC 11.5 H, RBC 7.52 H, Hgb 15.1 H, Hct 53.1 H, MCV 70.6 L, MCH 20.1 L, MCHC 28.4 L, RDW 24.2 H, RDW Differential 60.3 H, Plt Count 275, MPV 9.5, Differential Comment SCANNED 06/16/17 02:35: PT 14.0, INR 1.1 06/16/17 02:35: Sodium 140, Potassium 4.1, Chloride 95 L, Carbon Dioxide 41.0 H, Anion Gap 4 L, BUN 30 H, Creatinine 1.17 H, Estim Creat Clear Calc 51.46, Est GFR (MDRD) Af Amer 62, Est GFR (MDRD) Non-Af 51 L, BUN/Creatinine Ratio 25.6 H, Glucose 157 H, Calcium 8.5 Current Medications Acetaminophen (Tylenol) 650 mg PO Q6H PRN PRN PRN Reason: Mild Pain (scale 0-3)/T>100.7 Last Admin: 06/14/17 05:44 Dose: 650 mg Al Hydroxide/Mg Hydroxide (Mylanta Ii) 30 ml PO Q6H PRN PRN PRN Reason: Gastric Burning Albuterol Sulfate (Ventolin Aerosols) 2.5 mg INHALATION Q2H PRN PRN PRN Reason: SHORTNESS OF BREATH Last Admin: 06/15/17 06:54 Dose: 2.5 mg Albuterol/Ipratropium (Duoneb) 3 ml INHALATION Q4HWA.RT [facility] Last Admin: 06/16/17 10:45 Dose: Not Given Apixaban (Eliquis) 5 mg PO BID [facility] Aspirin (Aspirin, Baby) 81 mg PO DAILY@0800 [facility] Last Admin: 06/16/17 06:12 Dose: 81 mg Atorvastatin Calcium (Lipitor) 40 mg PO QHS [facility] Bisacodyl (Dulcolax) 10 mg RECTAL DAILY PRN PRN PRN Reason: Constipation Bumetanide (Bumex) 2 mg PO BID [facility] Buspirone HCl (Buspar) 7.5 mg PO BID [facility] Last Admin: 06/16/17 12:33 Dose: 7.5 mg Docusate Sodium (Colace) 100 mg PO BID PRN PRN Reason: Constipation Folic Acid (Folic Acid) 1 mg PO DAILY@0800 [facility] Last Admin: 06/16/17 12:33 Dose: 1 mg [facility]) [facility] Last Admin: 06/16/17 12:33 Dose: 100 mg Guaifenesin (Mucinex) 1,200 mg PO BID [facility] Last Admin: 06/15/17 22:50 Dose: 1,200 mg Hydroxyzine HCl (Atarax Tablet) 10 mg PO TID PRN PRN Reason: Anxiety/itching Last Admin: 06/16/17 12:32 Dose: 10 mg Sodium Chloride () 1,000 mls @ 0 mls/hr IV .Q0M [facility] PRN Reason: KVO Levothyroxine Sodium (Synthroid) 25 mcg PO DAILY@0600 [facility] Last Admin: 06/16/17 06:12 Dose: 25 mcg Losartan Potassium (Cozaar) 50 mg PO DAILY [facility] Methylprednisolone (Solu-Medrol) 40 mg IV Q8 [facility] Last Admin: 06/16/17 06:11 Dose: 40 mg Metoprolol Tartrate (Lopressor (Beta Garrett)) 25 mg PO BID [facility] Last Admin: 06/16/17 06:14 Dose: 25 mg Morphine Sulfate () 1 mg IV Q4H PRN PRN PRN Reason: SEVERE PAIN (6-10/10) Ondansetron HCl (Zofran) 4 mg IV Q8H PRN PRN PRN Reason: Nausea Oxybutynin Chloride (Ditropan) 5 mg PO DAILY [facility] Last Admin: 06/16/17 12:32 Dose: 5 mg Pantoprazole Sodium (Protonix) 40 mg PO DAILY [facility] Last Admin: 06/16/17 12:33 Dose: 40 mg Polyethylene Glycol (Miralax) 17 gm PO DAILY [facility] Last Admin: 06/15/17 10:06 Dose: Not Given Potassium [facility] ([facility]) [facility] Last Admin: 06/16/17 12:33 Dose: 20 meq Sodium Chloride () 5 - 30 ml IV UD PRN PRN Reason: SALINE FLUSH Last Admin: 06/16/17 06:12 Dose: 10 ml Tramadol HCl (Ultram) 50 mg PO Q6H PRN PRN PRN Reason: MODERATE PAIN (4-5/10) Last Admin: 06/15/17 20:06 Dose: 50 mg Venlafaxine HCl (Effexor Xr) 150 mg PO DAILY [facility] Last Admin: 06/16/17 12:33 Dose: 150 mg Medical Necessity - Tobacco Use Smoking Status: Current every day smoker Tobacco Use: Cigarettes Assessment/Plan Active and Suspected Problems CHF exacerbation (Acute) COPD exacerbation (Acute) Elevated troponin (Acute) Abnormal EKG (Acute) 1. Acute on chronic heart failure ; has been transitioned to PO Bumex from Lasix as recommended by rn cardiovascular. 2. Troponin elevation consistent with NSTEMI; left heart catheterization today showed angiographically normal coronaries. 3. Acute COPD exacerbation; continue on bronchodilators and steroids. 4. history of PE; patient has been changed to Eliquis to be started on 06/19/2017 5. bilateral lower extremity lymphedema ; keep legs elevated, diuretics.. 6. NSVT; magnesium replaced, she has a normal ejection fraction. 7. I Discussed discharge planning with social workers and case management, the patient will likely be discharged home in the next 24-48 hours. Code Visit Inpatient E&M: 51318 Subs Hosp L2
[2017-06-16] MEDS: traMADol 50 MG Tablet PO ×2 (13:03→20:49)
--- NOTE | 2017-06-16 13:07 | PN_ITS ---
Patient Problems: Active and Suspected Problems CHF exacerbation (Acute) COPD exacerbation (Acute) Elevated troponin (Acute) Abnormal EKG (Acute) Subjective: CC: Follow-up on dyspnea and elevated troponin. Objective: This is a 52-year-old female who presented with progressive dyspnea and leg edema, but it was elevated consistent with NSTEMI, left heart catheterization today that showed angiographically normal coronaries and a normal ejection fraction. Vitals/I&O's: Vital Signs Temp Pulse Resp BP Pulse Ox 97.2 F L 70 16 168/94 H 94 06/16/17 11:20 06/16/17 12:50 06/16/17 12:50 06/16/17 12:50 06/16/17 12:50 Oxygen Flow Rate (L/min) 6 Oxygen Delivery Method Nasal Cannula Weight: 135.2 kg Body Mass Index (BMI) 50.8 Intake and Output for Last 24 Hours 06/14/17 06/15/17 06/16/17 23:59 23:59 23:59 Intake Total 1785.8 / 1785.8 1227 / 1227 440 / 440 Output Total 37544 / 69169 3250 / 3250 1330 / 1330 Balance -9139.2 / -9139.2 -2022 / -2023 -890 / -890 General: Alert, Oriented x3 HEENT: Atraumatic Oral: Moist Mucosa Neck: Supple, No JVD Lungs: Clear to auscultation, No wheeze Cardiovascular: Regular rate, Normal S1 Abdomen: Bowel Sounds Present, Soft, Non Tender, Non-Distended Extremities: Edema Skin: No rashes Microbiology Past 72 Hours 06/13/17 21:12 Mucosa - Nasopharyngeal Influenza Types A,B Direct FA (ANGELA) - Final Laboratory Results 06/15/17 12:40: APTT 42.2 H 06/15/17 19:08: APTT 45.5 H 06/16/17 02:35: APTT 47.2 H 06/16/17 02:35: WBC 11.5 H, RBC 7.52 H, Hgb 15.1 H, Hct 53.1 H, MCV 70.6 L, MCH 20.1 L, MCHC 28.4 L, RDW 24.2 H, RDW Differential 60.3 H, Plt Count 275, MPV 9.5 , Differential Comment SCANNED 06/16/17 02:35: PT 14.0, INR 1.1 06/16/17 02:35: Sodium 140, Potassium 4.1, Chloride 95 L, Carbon Dioxide 41.0 H , Anion Gap 4 L, BUN 30 H, Creatinine 1.17 H, Estim Creat Clear Calc 51.46, Est GFR (MDRD) Af Amer 62, Est GFR (MDRD) Non-Af 51 L, BUN/Creatinine Ratio 25.6 H, Glucose 157 H, Calcium 8.5 Current Medications Acetaminophen (Tylenol) 650 mg PO Q6H PRN PRN PRN Reason: Mild Pain (scale 0-3)/T>100.7 Last Admin: 06/14/17 05:44 Dose: 650 mg Al Hydroxide/Mg Hydroxide (Mylanta Ii) 30 ml PO Q6H PRN PRN PRN Reason: Gastric Burning Albuterol Sulfate (Ventolin Aerosols) 2.5 mg INHALATION Q2H PRN PRN PRN Reason: SHORTNESS OF BREATH Last Admin: 06/15/17 06:54 Dose: 2.5 mg Albuterol/Ipratropium (Duoneb) 3 ml INHALATION Q4HWA.RT [facility] Last Admin: 06/16/17 10:45 Dose: Not Given Apixaban (Eliquis) 5 mg PO BID [facility] Aspirin (Aspirin, Baby) 81 mg PO DAILY@0800 [facility] Last Admin: 06/16/17 06:12 Dose: 81 mg Atorvastatin Calcium (Lipitor) 40 mg PO QHS [facility] Bisacodyl (Dulcolax) 10 mg RECTAL DAILY PRN PRN PRN Reason: Constipation Bumetanide (Bumex) 2 mg PO BID [facility] Buspirone HCl (Buspar) 7.5 mg PO BID [facility] Last Admin: 06/16/17 12:33 Dose: 7.5 mg Docusate Sodium (Colace) 100 mg PO BID PRN PRN Reason: Constipation Folic Acid (Folic Acid) 1 mg PO DAILY@0800 [facility] Last Admin: 06/16/17 12:33 Dose: 1 mg [facility]) [facility] Admin: 06/16/17 12:33 Dose: 100 mg Guaifenesin (Mucinex) 1,200 mg PO BID [facility] Last Admin: 06/15/17 22:50 Dose: 1,200 mg Hydroxyzine HCl (Atarax Tablet) 10 mg PO TID PRN PRN Reason: Anxiety/itching Last Admin: 06/16/17 12:32 Dose: 10 mg Sodium Chloride () 1,000 mls @ 0 mls/hr IV .Q0M [facility] PRN Reason: KVO Levothyroxine Sodium (Synthroid) 25 mcg PO DAILY@0600 [facility] Last Admin: 06/16/17 06:12 Dose: 25 mcg Losartan Potassium (Cozaar) 50 mg PO DAILY [facility] Methylprednisolone (Solu-Medrol) 40 mg IV Q8 [facility] Last Admin: 06/16/17 06:11 Dose: 40 mg Metoprolol Tartrate (Lopressor (Beta Garrett)) 25 mg PO BID [facility] Last Admin: 06/16/17 06:14 Dose: 25 mg Morphine Sulfate () 1 mg IV Q4H PRN PRN PRN Reason: SEVERE PAIN (6-10/10) Ondansetron HCl (Zofran) 4 mg IV Q8H PRN PRN PRN Reason: Nausea Oxybutynin Chloride (Ditropan) 5 mg PO DAILY [facility] Last Admin: 06/16/17 12:32 Dose: 5 mg Pantoprazole Sodium (Protonix) 40 mg PO DAILY [facility] Last Admin: 06/16/17 12:33 Dose: 40 mg Polyethylene Glycol (Miralax) 17 gm PO DAILY [facility] Last Admin: 06/15/17 10:06 Dose: Not Given Potassium Chloride (K-Dur) [facility] Last Admin: 06/16/17 12:33 Dose: 20 meq Sodium Chloride () 5 - 30 ml IV UD PRN PRN Reason: SALINE FLUSH Last Admin: 06/16/17 06:12 Dose: 10 ml Tramadol HCl (Ultram) 50 mg PO Q6H PRN PRN PRN Reason: MODERATE PAIN (4-5/10) Last Admin: 06/15/17 20:06 Dose: 50 mg Venlafaxine HCl (Effexor Xr) 150 mg PO DAILY [facility] Last Admin: 06/16/17 12:33 Dose: 150 mg Medical Necessity - Tobacco Use Smoking Status: Current every day smoker Tobacco Use: Cigarettes Assessment/Plan Active and Suspected Problems CHF exacerbation (Acute) COPD exacerbation (Acute) Elevated troponin (Acute) Abnormal EKG (Acute) 1. Acute on chronic heart failure ; has been transitioned to PO Bumex from Lasix as recommended by leaf coverer. 2. Troponin elevation consistent with NSTEMI; left heart catheterization today showed angiographically normal coronaries. 3. Acute COPD exacerbation; continue on bronchodilators and steroids. 4. history of PE; patient has been changed to Eliquis to be started on 2017 5. bilateral lower extremity lymphedema ; keep legs elevated, diuretics.. 6. NSVT; magnesium replaced, she has a normal ejection fraction. 7. I Discussed discharge planning with social workers and case management, the patient will likely be discharged home in the next 24-48 hours. Code Visit Inpatient E&M: 02229 Subs Hosp L2
--- NOTE | 2017-06-16 13:32 | CASEMGMT ---
RN CM received update that patient is requiring HHC at discharge. Referral sent to [facility], who declined due to staffing. Referral was sent to [facility] who is able to accept the patient. This RN CM updated RN CM S. Joseluis regarding HHC setup. CM will continue to follow this patient and plan for a safe discharge.
[2017-06-16] MEDS: Polyethylene Glycol 3350 17 GM PACKET PO (14:25)
[2017-06-16] MEDS: guaiFENesin 1,200 MG Tablet 1200 MG PO ×2 (14:25→21:22)
--- NOTE | 2017-06-16 14:34 | CASEMGMT ---
This MARIEL CM into room to inform pt about [facility] set up thru [facility]. Pt now inquires if [employer] is in network as her sister works there. According to the [employer] medicaid website, [facility] [employer] [facility] is not in network for pt. Pt updated at this time and voices understanding. Pt states '[employer] is fine, I just thought I would check for my sister's company.' Pt states that sister is working on getting her a hospital bed and shower chair for at home. SStaten MARIEL LEÓN
--- NOTE | 2017-06-16 21:20 | NURSING ---
Pt. up OOB walking in room with walker, tolerated well. R groin site dressing D & I, no hematoma, no redness, no ecchymosis. Will monitor.
[2017-06-16] MEDS: Bumetanide 2 MG Tablet PO (21:22)
[2017-06-16] MEDS: Atorvastatin Calcium 40 MG Tablet PO (21:23)
--- NOTE | 2017-06-16 21:41 | NURSING ---
Pt. refusing DEJON wraps due to causing cramps in backs of legs.
[2017-06-17] VITALS (21 sets, daily range): BP systolic 124–171; BP diastolic 73–86; PULSE 70–87; RESP 16–20; TEMP 36.6–37.2; O2SAT 89–92
[2017-06-17] MEDS: hydrALAZINE 20 MG/ML Vial 10 MG IV (05:13)
[2017-06-17] MEDS: Levothyroxine 25 MCG TABLET PO (05:13)
[2017-06-17] MEDS: 0.9% NaCl Peripheral Flush Adult/Peds IV ×3 (05:21→21:07)
[2017-06-17] MEDS: Ipratropium/Albuterol Sulfate 3 ML AMPUL.NEB INHALATION ×4 (07:32→19:02)
[2017-06-17] MEDS: traMADol 50 MG Tablet PO (07:50)
[2017-06-17] MEDS: Bumetanide 2 MG Tablet PO ×2 (07:58→21:05)
[2017-06-17] MEDS: Gabapentin 100 MG Capsule PO ×2 (07:58→17:54)
[2017-06-17] MEDS: Oxybutynin 5 MG Tablet PO (07:58)
[2017-06-17] MEDS: Venlafaxine XR 150 MG Capsule PO (07:58)
[2017-06-17] MEDS: Pantoprazole Sodium 40 MG Tablet PO (07:58)
[2017-06-17] MEDS: Aspirin 81 MG TAB.CHEW PO (07:58)
[2017-06-17] MEDS: Losartan Potassium 50 MG Tablet PO (07:58)
[2017-06-17] MEDS: busPIRone 5 MG Tablet 7.5 MG PO ×2 (07:58→21:04)
[2017-06-17] MEDS: guaiFENesin 1,200 MG Tablet 1200 MG PO ×2 (07:58→21:05)
[2017-06-17] MEDS: Folic Acid 1 MG Tablet PO (07:58)
[2017-06-17] MEDS: Metoprolol Tartrate 25 MG Tablet PO ×2 (07:59→21:05)
[2017-06-17 10:03] LABS: Absolute Lymphocyte Count 0.52 X10^3/ul (0.83-4.51); Absolute Neutrophil Count 10.9 X10^3/uL (2.0-7.7); Basophil# 0.01 X10^3/uL; Basophil% 0.1 % (0-1); Lymphocyte # 0.52 X10^3/ul (4.0); Lymphocyte % 4.2 % (19-41); Mean Corpuscular Volume 70.3 fL (81-99); Mean Platelet Vol. 9.2 fl (6.2-12.0); Monocyte# 0.84 X10^3/uL; Monocyte% 6.8 % (0-10); Neutrophil # 10.89 X10^3/uL (2.7-7.7); Neutrophil % 88.7 % (47-70); Platelet Count 262 K/mm3 (150-450); RBC Distribution Width CV 24.2 % (11.6-14.6); RBC Distribution Width SD 60.8 fl (35.1-43.9); White Blood Count 12.3 K/mm3 (4.4-11.0)
[2017-06-17 10:04] LABS: Hematocrit 56.7 % (37-47)
[2017-06-17 10:05] LABS: Hemoglobin 16.3 g/dl (12.0-15.0); Mean Corp Hgb Conc 28.7 g/gl (32-36)
[2017-06-17 10:06] LABS: Differential Indicated SCAN CRITERIA MET; Mean Corpuscular Hgb 20.8 pg (27.0-32.0); POSITIVE COUNT NO; POSITIVE DIFFERENTIAL YES; POSITIVE MORPHOLOGY YES
[2017-06-17 10:15] LABS: Anion Gap 5 (5-15); BUN 31 mg/dL (7-18); BUN/Creat Ratio 28.4 RATIO (10-20); Calcium,Total 8.7 mg/dL (8.5-10.1); Chloride 97 mmol/L (98-107); Creatinine, Serum 1.09 mg/dL (0.55-1.02); EST Glomerular Filtration Rate 56 mL/min (>60); Est Glom Filt Rate - Afr Amer 67 mL/min (>60); Estimated Creatinine Clearance 55.23 ml/min; Glucose 188 mg/dL (74-106); Potassium 4.9 mmol/L (3.5-5.1); Sodium Level 137 mmol/L (136-145)
--- NOTE | 2017-06-17 12:40 | PCM.PN.HOSP ---
Patient Problems: Active and Suspected Problems CHF exacerbation (Acute) COPD exacerbation (Acute) Elevated troponin (Acute) Abnormal EKG (Acute) Subjective: Patient is a 52-year-old female was admitted with a complaint of worsening shortness of breath and lower extremity edema. She was managed for N STEMI and left heart cath done showed normal coronaries and normal ejection fraction. She is being diuresed with IV Lasix and has remained stable. Seen and examined today. She was sitting up in a chair and was very comfortable. She denied any shortness of breath and felt very comfortable. She denies any chest pain, dizziness, palpitations, nausea or vomiting. Review of systems otherwise negative. Vitals/I&O's: Vital Signs Temp Pulse Resp BP Pulse Ox 97.8 F 71 18 158/78 H 92 06/17/17 09:21 06/17/17 11:13 06/17/17 11:13 06/17/17 09:21 06/17/17 09:21 Oxygen Flow Rate (L/min) 4 Oxygen Delivery Method Nasal Cannula Weight: 298 lb 1.039 oz Body Mass Index (BMI) 50.8 Intake and Output for Last 24 Hours 06/15/17 06/16/17 06/17/17 23:59 23:59 23:59 Intake Total 1227 / 1227 1280 / 1280 955 / 955 Output Total 3250 / 3250 2530 / 2530 3000 / 3000 Balance -202 / -2022 -1250 / -1250 -2044 / -2044 General: Alert, Oriented x3, Cooperative, No apparent distress HEENT: Atraumatic, PERRLA, EOMI, Normocephalic Oral: Moist Mucosa Neck: Supple, No JVD, Negative Carotid Bruits Lungs: Clear to auscultation, Normal air movement, No rhonchi, No wheeze Cardiovascular: Regular rate, Regular Rhythm, Normal S1, Normal S2, No murmurs Abdomen: Bowel Sounds Present, Soft, Non Tender, No Hepato-splenomegaly Extremities: No edema, Capillary Refill Less than 3 Seconds, - - Minimal cyanotic discoloration of lower extremities bilaterally. Skin: No rashes, No breakdown Musculoskeletal: No Tenderness to Palpation of Joints or Extremities Lymphatic: No Cervical, Supraclavicular, or Inguinal Adenopathy Neurological: Cranial nerves II-XII grossly intact Psych/Mental Status: Normal Affect, Appropriate, Alert and oriented to time, place, person, mood and affect Laboratory Results 06/17/17 09:15: WBC 12.3 H, RBC 7.80 H, Hgb 16.3 H, Hct 56.7 H, MCV 70.3 L, MCH 20.8 L, MCHC 28.7 L, RDW 24.2 H, RDW Differential 60.8 H, Plt Count 262, MPV 9.2, Immature Gran % (Auto) 0.200, Neut % (Auto) 88.7 H, Lymph % (Auto) 4.2 L, [place] % (Auto) 6.8, Eos % (Auto) 0.0, Baso % (Auto) 0.1, Absolute Neuts (auto) 10.9 H, Absolute Lymphs (auto) 0.52 L, Total Counted Not Reportable, Differential Comment , Diff Path Review June06/17/17 09:15: Sodium 137, Potassium 4.9, Chloride 97 L, Carbon Dioxide 35.0 H, Anion Gap 5, BUN 31 H, Creatinine 1.09 H, Estim Creat Clear Calc 55.23, Est GFR (MDRD) Af Amer 67, Est GFR (MDRD) Non-Af 56 L, BUN/Creatinine Ratio 28.4 H, Glucose 188 H, Calcium 8.7 Current Medications Acetaminophen (Tylenol) 650 mg PO Q6H PRN PRN PRN Reason: Mild Pain (scale 0-3)/T>100.7 Last Admin: 06/14/17 05:44 Dose: 650 mg Al Hydroxide/Mg Hydroxide (Mylanta Ii) 30 ml PO Q6H PRN PRN PRN Reason: Gastric Burning Albuterol Sulfate (Ventolin Aerosols) 2.5 mg INHALATION Q2H PRN PRN PRN Reason: SHORTNESS OF BREATH Last Admin: 06/15/17 06:54 Dose: 2.5 mg Albuterol/Ipratropium (Duoneb) 3 ml INHALATION Q4HWA.RT [facility] Last Admin: 06/17/17 11:13 Dose: 3 ml Apixaban (Eliquis) 5 mg PO 0800,2000 [facility] Aspirin (Aspirin, Baby) 81 mg PO DAILY@0800 [facility] Last Admin: 06/17/17 07:58 Dose: 81 mg Atorvastatin Calcium (Lipitor) 40 mg PO QHS [facility] Last Admin: 06/16/17 21:23 Dose: 40 mg Bisacodyl (Dulcolax) 10 mg RECTAL DAILY PRN PRN PRN Reason: Constipation Bumetanide (Bumex) 2 mg PO BID [facility] Last Admin: 06/17/17 07:58 Dose: 2 mg Buspirone HCl (Buspar) 7.5 mg PO BID [facility] Last Admin: 06/17/17 07:58 Dose: 7.5 mg Docusate Sodium (Colace) 100 mg PO BID PRN PRN Reason: Constipation Folic Acid (Folic Acid) 1 mg PO DAILY@0800 [facility] Last Admin: 06/17/17 07:58 Dose: 1 mg [facility]) [facility] Last Admin: 06/17/17 07:58 Dose: 100 mg Guaifenesin (Mucinex) 1,200 mg PO BID [facility] Last Admin: 06/17/17 07:58 Dose: 1,200 mg Hydralazine HCl (Apresoline Iv) 10 mg IV Q8H PRN PRN PRN Reason: for SBP greater than 160 Last Admin: 06/17/17 05:13 Dose: 10 mg Hydroxyzine HCl (Atarax Tablet) 10 mg PO TID PRN PRN Reason: Anxiety/itching Last Admin: 06/16/17 21:42 Dose: 10 mg Sodium Chloride () 1,000 mls @ 0 mls/hr IV .Q0M [facility] PRN Reason: KVO Levothyroxine Sodium (Synthroid) 25 mcg PO DAILY@0600 [facility] Last Admin: 06/17/17 05:13 Dose: 25 mcg Losartan Potassium (Cozaar) 50 mg PO DAILY [facility] Last Admin: 06/17/17 07:58 Dose: 50 mg Methylprednisolone (Solu-Medrol) 40 mg IV Q8 [facility] Last Admin: 06/17/17 05:13 Dose: 40 mg Metoprolol Tartrate (Lopressor (Beta Garrett)) 25 mg PO BID [facility] Last Admin: 06/17/17 07:59 Dose: 25 mg Morphine Sulfate () 1 mg IV Q4H PRN PRN PRN Reason: SEVERE PAIN (6-10/10) Ondansetron HCl (Zofran) 4 mg IV Q8H PRN PRN PRN Reason: Nausea Oxybutynin Chloride (Ditropan) 5 mg PO DAILY [facility] Last Admin: 06/17/17 07:58 Dose: 5 mg Pantoprazole Sodium (Protonix) 40 mg PO DAILY [facility] Last Admin: 06/17/17 07:58 Dose: 40 mg Polyethylene Glycol (Miralax) 17 gm PO DAILY [facility] Last Admin: 06/17/17 07:57 Dose: Not Given Potassium Chloride (K-Dur) 20 meq PO DAILYCM [facility] Last Admin: 06/17/17 07:58 Dose: 20 meq Sodium Chloride () 5 - 30 ml IV UD PRN PRN Reason: SALINE FLUSH Last Admin: 06/17/17 05:21 Dose: 10 ml Tramadol HCl (Ultram) 50 mg PO Q6H PRN PRN PRN Reason: MODERATE PAIN (4-5/10) Last Admin: 06/17/17 07:50 Dose: 50 mg Venlafaxine HCl (Effexor Xr) 150 mg PO DAILY [facility] Last Admin: 06/17/17 07:58 Dose: 150 mg Medical Necessity - Tobacco Use Smoking Status: Current every day smoker Tobacco Use: Cigarettes Assessment/Plan Active and Suspected Problems CHF exacerbation (Acute) COPD exacerbation (Acute) Elevated troponin (Acute) Abnormal EKG (Acute) 1. Acute on Chronic heart failure Patient has no complaints and is doing very well. Active balance by 1.2 L over the last 24 hours. Lungs are Clear to auscultation. On p.o. bumetanide 2. Acute on chronic hypoxic respiratory failure due to heart failure and COPD on 6L of oxygen by nasal canula today. will wean down to 4L, which is her baseline at home. to maintain saturation between 88-92%. for ambulatory pulse ox before discharge tomorrow 3. NSTEMI: left heart carth showed normal coronaries. Will monitor 4. Acute COPD exacerbation: on bronchodilators and steroids. On breathing treatments with duneb 5. History of PE: transitioned to PO eliquis 6. Bilateral LE lymphedema; stable. Edema has resolved. On bumetanide 7. Nonsustained ventricular tachycardia: stable. Electrolytes being monitored and replaced. 8. DVT prophylaxis: on eliquis Disposition: for dc tomorrow. Code Visit Inpatient E&M: 56187 Subs Hosp L3
--- NOTE | 2017-06-17 12:42 | PCM.PN.CARD ---
Subjectve: Patient seen and evaluated Objective: Vital Signs Temp Pulse Resp BP Pulse Ox 97.8 F 71 18 158/78 H 92 06/17/17 09:21 06/17/17 11:13 06/17/17 11:13 06/17/17 09:21 06/17/17 09:21 Oxygen Flow Rate (L/min) 4 Oxygen Delivery Method Nasal Cannula Weight: 298 lb 1.039 oz Body Mass Index (BMI) 50.8 Intake and Output for Last 24 Hours 06/15/17 06/16/17 06/17/17 23:59 23:59 23:59 Intake Total 1227 / 1227 1280 / 1280 955 / 955 Output Total 3250 / 3250 2530 / 2530 3000 / 3000 Balance -2022 / -2022 -1250 / -1250 -2044 / -2044 General: Awake, Alert, Oriented x 3 HEENT: PERRL, EOMI, Sclera Non Icteric Neck: Supple, Good ROM, No Lymph Node Enlargement Lungs: Clear to auscultation Cardiovascular: Regular Rhythm, Normal S1, Normal S2, No Murmurs, No Rubs, No Gallops Vascular: No Carotid Bruits, Normal Femoral Pulses, Normal Radial Pulses, Normal Dorsalis Pedal Pulse, Normal Posterior Tibial Pulses Abdomen: Bowel Sounds Present, Soft, Non Tender, No HSM, No Organomegaly Extremities: No Cyanosis, No Clubbing, No edema Neurological: No Focal Motor or Sensory Deficit 06/17/17 09:15: WBC 12.3 H, RBC 7.80 H, Hgb 16.3 H, Hct 56.7 H, MCV 70.3 L, MCH 20.8 L, MCHC 28.7 L, RDW 24.2 H, RDW Differential 60.8 H, Plt Count 262, MPV 9.2, Immature Gran % (Auto) 0.200, Neut % (Auto) 88.7 H, Lymph % (Auto) 4.2 L, [place] % (Auto) 6.8, Eos % (Auto) 0.0, Baso % (Auto) 0.1, Absolute Neuts (auto) 10.9 H, Total Counted Not Reportable 06/17/17 09:15: Sodium 137, Potassium 4.9, Chloride 97 L, Carbon Dioxide 35.0 H, Anion Gap 5, BUN 31 H, Creatinine 1.09 H, Est GFR (MDRD) Af Amer 67, Est GFR (MDRD) Non-Af 56 L, BUN/Creatinine Ratio 28.4 H, Glucose 188 H, Calcium 8.7 Rhythm: EKG: ECHO: Stress Test: Cardiac Cath: PCI: CT Surgery: Holter monitor: EPS: PPM: CXR: Chest CT Scan: Medical Necessity - Tobacco Use Smoking Status: Current every day smoker Tobacco Use: Cigarettes Assessment/Plan 1.Abnormal cardiac enzymes. Patient underwent cardiac catheterization which demonstrated essentially normal coronary arteries as well as normal left ventricular ejection fraction. Recommendation at this time will be to continue with aggressive medical therapy. No other changes will be made. From the [facility] vascular standpoint the patient can be discharged for outpatient follow-up. Thank you for allowing me to participate in the care of your patient. Please don't hesitate to call if any issues arise
--- NOTE | 2017-06-17 12:46 | PN_ITS ---
Patient Problems: Active and Suspected Problems CHF exacerbation (Acute) COPD exacerbation (Acute) Elevated troponin (Acute) Abnormal EKG (Acute) Subjective: Patient is a 52-year-old female was admitted with a complaint of worsening shortness of breath and lower extremity edema. She was managed for N STEMI and left heart cath done showed normal coronaries and normal ejection fraction. She is being diuresed with IV Lasix and has remained stable. Seen and examined today. She was sitting up in a chair and was very comfortable. She denied any shortness of breath and felt very comfortable. She denies any chest pain, dizziness, palpitations, nausea or vomiting. Review of systems otherwise negative. Vitals/I&O's: Vital Signs Temp Pulse Resp BP Pulse Ox 97.8 F 71 18 158/78 H 92 06/17/17 09:21 06/17/17 11:13 06/17/17 11:13 06/17/17 09:21 06/17/17 09:21 Oxygen Flow Rate (L/min) 4 Oxygen Delivery Method Nasal Cannula Weight: 298 lb 1.039 oz Body Mass Index (BMI) 50.8 Intake and Output for Last 24 Hours 06/15/17 06/16/17 06/17/17 23:59 23:59 23:59 Intake Total 1227 / 1227 1280 / 1280 955 / 955 Output Total 3250 / 3250 2530 / 2530 3000 / 3000 Balance -202 / -2022 -1250 / -1250 -2044 / -2044 General: Alert, Oriented x3, Cooperative, No apparent distress HEENT: Atraumatic, PERRLA, EOMI, Normocephalic Oral: Moist Mucosa Neck: Supple, No JVD, Negative Carotid Bruits Lungs: Clear to auscultation, Normal air movement, No rhonchi, No wheeze Cardiovascular: Regular rate, Regular Rhythm, Normal S1, Normal S2, No murmurs Abdomen: Bowel Sounds Present, Soft, Non Tender, No Hepato-splenomegaly Extremities: No edema, Capillary Refill Less than 3 Seconds, - - Minimal cyanotic discoloration of lower extremities bilaterally. Skin: No rashes, No breakdown Musculoskeletal: No Tenderness to Palpation of Joints or Extremities Lymphatic: No Cervical, Supraclavicular, or Inguinal Adenopathy Neurological: Cranial nerves II-XII grossly intact Psych/Mental Status: Normal Affect, Appropriate, Alert and oriented to time, place, person, mood and affect Laboratory Results 06/17/17 09:15: WBC 12.3 H, RBC 7.80 H, Hgb 16.3 H, Hct 56.7 H, MCV 70.3 L, MCH 20.8 L, MCHC 28.7 L, RDW 24.2 H, RDW Differential 60.8 H, Plt Count 262, MPV 9.2 , Immature Gran % (Auto) 0.200, Neut % (Auto) 88.7 H, Lymph % (Auto) 4.2 L, [place] % (Auto) 6.8, Eos % (Auto) 0.0, Baso % (Auto) 0.1, Absolute Neuts (auto) 10.9 H, Absolute Lymphs (auto) 0.52 L, Total Counted Not Reportable, Differential Comment , Diff Path Review June06/17/17 09:15: Sodium 137, Potassium 4.9, Chloride 97 L, Carbon Dioxide 35.0 H , Anion Gap 5, BUN 31 H, Creatinine 1.09 H, Estim Creat Clear Calc 55.23, Est GFR (MDRD) Af Amer 67, Est GFR (MDRD) Non-Af 56 L, BUN/Creatinine Ratio 28.4 H, Glucose 188 H, Calcium 8.7 Current Medications Acetaminophen (Tylenol) 650 mg PO Q6H PRN PRN PRN Reason: Mild Pain (scale 0-3)/T>100.7 Last Admin: 06/14/17 05:44 Dose: 650 mg Al Hydroxide/Mg Hydroxide (Mylanta Ii) 30 ml PO Q6H PRN PRN PRN Reason: Gastric Burning Albuterol Sulfate (Ventolin Aerosols) 2.5 mg INHALATION Q2H PRN PRN PRN Reason: SHORTNESS OF BREATH Last Admin: 06/15/17 06:54 Dose: 2.5 mg Albuterol/Ipratropium (Duoneb) 3 ml INHALATION Q4HWA.RT [facility] Last Admin: 06/17/17 11:13 Dose: 3 ml Apixaban (Eliquis) 5 mg PO 0800,2000 [facility] Aspirin (Aspirin, Baby) 81 mg PO DAILY@0800 [facility] Last Admin: 06/17/17 07:58 Dose: 81 mg Atorvastatin Calcium (Lipitor) 40 mg PO QHS [facility] Last Admin: 06/16/17 21:23 Dose: 40 mg Bisacodyl (Dulcolax) 10 mg RECTAL DAILY PRN PRN PRN Reason: Constipation Bumetanide (Bumex) 2 mg PO BID [facility] Last Admin: 06/17/17 07:58 Dose: 2 mg Buspirone HCl (Buspar) 7.5 mg PO BID [facility] Last Admin: 06/17/17 07:58 Dose: 7.5 mg Docusate Sodium (Colace) 100 mg PO BID PRN PRN Reason: Constipation Folic Acid (Folic Acid) 1 mg PO DAILY@0800 [facility] Last Admin: 06/17/17 07:58 Dose: 1 mg Gabap[facility] (Neurontin) [facility] Last Admin: 06/17/17 07:58 Dose: 100 mg Guaifenesin (Mucinex) 1,200 mg PO BID [facility] Last Admin: 06/17/17 07:58 Dose: 1,200 mg Hydralazine HCl (Apresoline Iv) 10 mg IV Q8H PRN PRN PRN Reason: for SBP greater than 160 Last Admin: 06/17/17 05:13 Dose: 10 mg Hydroxyzine HCl (Atarax Tablet) 10 mg PO TID PRN PRN Reason: Anxiety/itching Last Admin: 06/16/17 21:42 Dose: 10 mg Sodium Chloride () 1,000 mls @ 0 mls/hr IV .Q0M [facility] PRN Reason: KVO Levothyroxine Sodium (Synthroid) 25 mcg PO DAILY@0600 [facility] Last Admin: 06/17/17 05:13 Dose: 25 mcg Losartan Potassium (Cozaar) 50 mg PO DAILY [facility] Last Admin: 06/17/17 07:58 Dose: 50 mg Methylprednisolone (Solu-Medrol) 40 mg IV Q8 [facility] Last Admin: 06/17/17 05:13 Dose: 40 mg Metoprolol Tartrate (Lopressor (Beta Garrett)) 25 mg PO BID [facility] Last Admin: 06/17/17 07:59 Dose: 25 mg Morphine Sulfate () 1 mg IV Q4H PRN PRN PRN Reason: SEVERE PAIN (6-10/10) Ondansetron HCl (Zofran) 4 mg IV Q8H PRN PRN PRN Reason: Nausea Oxybutynin Chloride (Ditropan) 5 mg PO DAILY [facility] Last Admin: 06/17/17 07:58 Dose: 5 mg Pantoprazole Sodium (Protonix) 40 mg PO DAILY [facility] Last Admin: 06/17/17 07:58 Dose: 40 mg Polyethylene Glycol (Miralax) 17 gm PO DAILY [facility] Last Admin: 06/17/17 07:57 Dose: Not Given Potassium Chloride (K-Dur) 20 meq PO DAILYCM [facility] Last Admin: 06/17/17 07:58 Dose: 20 meq Sodium Chloride () 5 - 30 ml IV UD PRN PRN Reason: SALINE FLUSH Last Admin: 06/17/17 05:21 Dose: 10 ml Tramadol HCl (Ultram) 50 mg PO Q6H PRN PRN PRN Reason: MODERATE PAIN (4-5/10) Last Admin: 06/17/17 07:50 Dose: 50 mg Venlafaxine HCl (Effexor Xr) 150 mg PO DAILY [facility] Last Admin: 06/17/17 07:58 Dose: 150 mg Medical Necessity - Tobacco Use Smoking Status: Current every day smoker Tobacco Use: Cigarettes Assessment/Plan Active and Suspected Problems CHF exacerbation (Acute) COPD exacerbation (Acute) Elevated troponin (Acute) Abnormal EKG (Acute) 1. Acute on Chronic heart failure * Patient has no complaints and is doing very well. Active balance by 1.2 L over the last 24 hours. * Lungs are Clear to auscultation. On p.o. bumetanide * 2. Acute on chronic hypoxic respiratory failure due to heart failure and COPD * on 6L of oxygen by nasal canula today. will wean down to 4L, which is her baseline at home. * to maintain saturation between 88-92%. * for ambulatory pulse ox before discharge tomorrow * 3. NSTEMI: left heart carth showed normal coronaries. Will monitor 4. Acute COPD exacerbation: on bronchodilators and steroids. On breathing treatments with duneb 5. History of PE: transitioned to PO eliquis 6. Bilateral LE lymphedema; stable. Edema has resolved. On bumetanide 7. Nonsustained ventricular tachycardia: stable. Electrolytes being monitored and replaced. 8. DVT prophylaxis: on eliquis Disposition: for dc tomorrow. Code Visit Inpatient E&M: 89504 [facility] L3
--- NOTE | 2017-06-17 12:47 | PN.CARD_ITS ---
Subjectve: Patient seen and evaluated Objective: Vital Signs Temp Pulse Resp BP Pulse Ox 97.8 F 71 18 158/78 H 92 06/17/17 09:21 06/17/17 11:13 06/17/17 11:13 06/17/17 09:21 06/17/17 09:21 Oxygen Flow Rate (L/min) 4 Oxygen Delivery Method Nasal Cannula Weight: 298 lb 1.039 oz Body Mass Index (BMI) 50.8 Intake and Output for Last 24 Hours 06/15/17 06/16/17 06/17/17 23:59 23:59 23:59 Intake Total 1227 / 1227 1280 / 1280 955 / 955 Output Total 3250 / 3250 2530 / 2530 3000 / 3000 Balance -2022 / -2022 -1250 / -1250 -2044 / -2044 General: Awake, Alert, Oriented x 3 HEENT: PERRL, EOMI, Sclera Non Icteric Neck: Supple, Good ROM, No Lymph Node Enlargement Lungs: Clear to auscultation Cardiovascular: Regular Rhythm, Normal S1, Normal S2, No Murmurs, No Rubs, No Gallops Vascular: No Carotid Bruits, Normal Femoral Pulses, Normal Radial Pulses, Normal Dorsalis Pedal Pulse, Normal Posterior Tibial Pulses Abdomen: Bowel Sounds Present, Soft, Non Tender, No HSM, No Organomegaly Extremities: No Cyanosis, No Clubbing, No edema Neurological: No Focal Motor or Sensory Deficit 06/17/17 09:15: WBC 12.3 H, RBC 7.80 H, Hgb 16.3 H, Hct 56.7 H, MCV 70.3 L, MCH 20.8 L, MCHC 28.7 L, RDW 24.2 H, RDW Differential 60.8 H, Plt Count 262, MPV 9.2 , Immature Gran % (Auto) 0.200, Neut % (Auto) 88.7 H, Lymph % (Auto) 4.2 L, [place] % (Auto) 6.8, Eos % (Auto) 0.0, Baso % (Auto) 0.1, Absolute Neuts (auto) 10.9 H, Total Counted Not Reportable 06/17/17 09:15: Sodium 137, Potassium 4.9, Chloride 97 L, Carbon Dioxide 35.0 H , Anion Gap 5, BUN 31 H, Creatinine 1.09 H, Est GFR (MDRD) Af Amer 67, Est GFR ( MDRD) Non-Af 56 L, BUN/Creatinine Ratio 28.4 H, Glucose 188 H, Calcium 8.7 Rhythm: EKG: ECHO: Stress Test: Cardiac Cath: PCI: CT Surgery: Holter monitor: EPS: PPM: CXR: Chest CT Scan: Medical Necessity - Tobacco Use Smoking Status: Current every day smoker Tobacco Use: Cigarettes Assessment/Plan 1.Abnormal cardiac enzymes. Patient underwent cardiac catheterization which demonstrated essentially normal coronary arteries as well as normal left ventricular ejection fraction. Recommendation at this time will be to continue with aggressive medical therapy. No other changes will be made. From the [facility] vascular standpoint the patient can be discharged for outpatient follow-up. Thank you for allowing me to participate in the care of your patient. Please don't hesitate to call if any issues arise
[2017-06-17] MEDS: hydrOXYzine 10 MG Tablet PO (17:54)
[2017-06-17] MEDS: Atorvastatin Calcium 40 MG Tablet PO (21:05)
[2017-06-18] VITALS (12 sets, daily range): BP systolic 126–143; BP diastolic 70–85; PULSE 78–86; RESP 16–18; TEMP 36.4–36.8; O2SAT 89–91
[2017-06-18] MEDS: traMADol 50 MG Tablet PO ×2 (01:00→08:56)
[2017-06-18] MEDS: Ipratropium/Albuterol Sulfate 3 ML AMPUL.NEB INHALATION ×3 (03:50→11:13)
[2017-06-18] MEDS: Levothyroxine 25 MCG TABLET PO (05:06)
[2017-06-18] MEDS: 0.9% NaCl Peripheral Flush Adult/Peds IV (05:06)
[2017-06-18] MEDS: Folic Acid 1 MG Tablet PO (08:56)
[2017-06-18] MEDS: Aspirin 81 MG TAB.CHEW PO (08:56)
[2017-06-18] MEDS: Gabapentin 100 MG Capsule PO (08:57)
[2017-06-18] MEDS: Bumetanide 2 MG Tablet PO (08:57)
[2017-06-18] MEDS: hydrOXYzine 10 MG Tablet PO (08:57)
[2017-06-18] MEDS: busPIRone 5 MG Tablet 7.5 MG PO (08:57)
[2017-06-18] MEDS: Metoprolol Tartrate 25 MG Tablet PO (08:58)
[2017-06-18] MEDS: guaiFENesin 1,200 MG Tablet 1200 MG PO (08:58)
[2017-06-18] MEDS: Losartan Potassium 50 MG Tablet PO (08:58)
[2017-06-18] MEDS: Venlafaxine XR 150 MG Capsule PO (08:58)
[2017-06-18] MEDS: Oxybutynin 5 MG Tablet PO (08:58)
[2017-06-18] MEDS: Pantoprazole Sodium 40 MG Tablet PO (08:59)
--- NOTE | 2017-06-18 10:31 | PCM.PN.CARD ---
Subjectve: Patient seen and evaluated. Appears to be doing better. Is currently on 4 L of oxygen like she was taking at home. Objective: Vital Signs Temp Pulse Resp BP Pulse Ox 98.2 F 80 16 127/70 H 90 06/18/17 09:00 06/18/17 09:00 06/18/17 09:00 06/18/17 09:00 06/18/17 09:00 Oxygen Flow Rate (L/min) [ 6 AMBULATION with Oxygen] Oxygen Flow Rate (L/min) 4 Oxygen Delivery Method Nasal Cannula Weight: 298 lb 1.039 oz Body Mass Index (BMI) 50.8 Intake and Output for Last 24 Hours 06/16/17 06/17/17 06/18/17 23:59 23:59 23:59 Intake Total 1280 / 1280 1630 / 1630 460 / 460 Output Total 2530 / 2530 4675 / 4675 Balance -1250 / -1250 -3045 / -3045 460 / 460 General: Awake, Alert, Oriented x 3 HEENT: PERRL, EOMI, Sclera Non Icteric Neck: Supple, Good ROM, No Lymph Node Enlargement Lungs: Clear to auscultation Cardiovascular: Regular Rhythm, Normal S1, Normal S2, No Murmurs, No Rubs, No Gallops Vascular: No Carotid Bruits, Normal Femoral Pulses, Normal Radial Pulses, Normal Dorsalis Pedal Pulse, Normal Posterior Tibial Pulses Abdomen: Bowel Sounds Present, Soft, Non Tender, No HSM, No Organomegaly Extremities: No Cyanosis, No Clubbing, No edema, - - [place] Neurological: No Focal Motor or Sensory Deficit Rhythm: EKG: ECHO: Stress Test: Cardiac Cath: PCI: CT Surgery: Holter monitor: EPS: PPM: CXR: Chest CT Scan: Medical Necessity - Tobacco Use Smoking Status: Current every day smoker Tobacco Use: Cigarettes Assessment/Plan 1.Abnormal cardiac enzymes. Patient underwent cardiac catheterization which demonstrated essentially normal coronary arteries as well as normal left ventricular ejection fraction. Recommendation at this time will be to continue with aggressive medical therapy. No other changes will be made. From the [facility] vascular standpoint the patient can be discharged for outpatient follow-up. 2. Shortness of breath. The above is multifactorial but likely not secondary to a primary cardiac problem. It may be more secondary to obesity as well as hypoventilation. She will continue on her current dose of medications. Thank you for allowing me to participate in the care of your patient. Please don't hesitate to call if any issues arise
--- NOTE | 2017-06-18 11:01 | PCM.PN.HOSP ---
Subjective: Patient is a 52-year-old female was admitted with a complaint of worsening shortness of breath and lower extremity edema. She was managed for N STEMI and left heart cath done showed normal coronaries and normal ejection fraction. She is being diuresed with IV Lasix and has remained stable. Seen and examined today. She was very comfortable had no complaints. She denied any shortness of breath and was able to ambulate without any shortness of breath. She denies any chest pain, abdominal pain, diarrhea vomiting. Review of systems otherwise negative. Vitals/I&O's: Vital Signs Temp Pulse Resp BP Pulse Ox 98.2 F 80 16 127/70 H 90 06/18/17 09:00 06/18/17 09:00 06/18/17 09:00 06/18/17 09:00 06/18/17 09:00 Oxygen Flow Rate (L/min) [ 6 AMBULATION with Oxygen] Oxygen Flow Rate (L/min) 4 Oxygen Delivery Method Nasal Cannula Weight: 298 lb 1.039 oz Body Mass Index (BMI) 50.8 Intake and Output for Last 24 Hours 06/16/17 06/17/17 06/18/17 23:59 23:59 23:59 Intake Total 1280 / 1280 1630 / 1630 460 / 460 Output Total 2530 / 2530 4675 / 4675 Balance -1250 / -1250 -3045 / -3045 460 / 460 General: Alert, Oriented x3, Cooperative, No apparent distress HEENT: Atraumatic, PERRLA, EOMI, Normocephalic Oral: Moist Mucosa Neck: Supple, No JVD, Negative Carotid Bruits Lungs: Clear to auscultation, Normal air movement, No rhonchi, No wheeze, No rales Cardiovascular: Regular rate, Regular Rhythm, Normal S1, Normal S2, No murmurs Abdomen: Bowel Sounds Present, Soft, Non Tender, No Hepato-splenomegaly, - - Obese abdomen Extremities: No edema, Capillary Refill Less than 3 Seconds, - Skin: No rashes, - - Venous stasis discoloration of lower extremities Musculoskeletal: No Tenderness to Palpation of Joints or Extremities Lymphatic: No Cervical, Supraclavicular, or Inguinal Adenopathy Neurological: Cranial nerves II-XII grossly intact, Neuro grossly intact, Motor Exam 5/5 strength throughout Psych/Mental Status: Normal Affect, Appropriate, Alert and oriented to time, place, person, mood and affect Current Medications Acetaminophen (Tylenol) 650 mg PO Q6H PRN PRN PRN Reason: Mild Pain (scale 0-3)/T>100.7 Last Admin: 06/14/17 05:44 Dose: 650 mg Al Hydroxide/Mg Hydroxide (Mylanta Ii) 30 ml PO Q6H PRN PRN PRN Reason: Gastric Burning Albuterol Sulfate (Ventolin Aerosols) 2.5 mg INHALATION Q2H PRN PRN PRN Reason: SHORTNESS OF BREATH Last Admin: 06/15/17 06:54 Dose: 2.5 mg Albuterol/Ipratropium (Duoneb) 3 ml INHALATION Q4HWA.RT [facility] Last Admin: 06/18/17 06:49 Dose: 3 ml Apixaban (Eliquis) 5 mg PO 0800,1999 [facility] Aspirin (Aspirin, Baby) 81 mg PO DAILY@0800 [facility] Last Admin: 06/18/17 08:56 Dose: 81 mg Atorvastatin Calcium (Lipitor) 40 mg PO QHS [facility] Last Admin: 06/17/17 21:05 Dose: 40 mg Bisacodyl (Dulcolax) 10 mg RECTAL DAILY PRN PRN PRN Reason: Constipation Bumetanide (Bumex) 2 mg PO BID [facility] Last Admin: 06/18/17 08:57 Dose: 2 mg Buspirone HCl (Buspar) 7.5 mg PO BID [facility] Last Admin: 06/18/17 08:57 Dose: 7.5 mg Docusate Sodium (Colace) 100 mg PO BID PRN PRN Reason: Constipation Folic Acid (Folic Acid) 1 mg PO DAILY@0800 [facility] Last Admin: 06/18/17 08:56 Dose: 1 mg [facility] Last Admin: 06/18/17 08:57 Dose: 100 mg Guaifenesin (Mucinex) 1,200 mg PO BID [facility] Last Admin: 06/18/17 08:58 Dose: 1,200 mg Hydralazine HCl (Apresoline Iv) 10 mg IV Q8H PRN PRN PRN Reason: for SBP greater than 160 Last Admin: 06/17/17 05:13 Dose: 10 mg Hydroxyzine HCl (Atarax Tablet) 10 mg PO TID PRN PRN Reason: Anxiety/itching Last Admin: 06/18/17 08:57 Dose: 10 mg Sodium Chloride () 1,000 mls @ 0 mls/hr IV .Q0M [facility] PRN Reason: KVO Levothyroxine Sodium (Synthroid) 25 mcg PO DAILY@0600 [facility] Last Admin: 06/18/17 05:06 Dose: 25 mcg Losartan Potassium (Cozaar) 50 mg PO DAILY [facility] Last Admin: 06/18/17 08:58 Dose: 50 mg Methylprednisolone (Solu-Medrol) 40 mg IV Q8 [facility] Last Admin: 06/18/17 05:06 Dose: 40 mg Metoprolol Tartrate (Lopressor (Beta Garrett)) 25 mg PO BID [facility] Last Admin: 06/18/17 08:58 Dose: 25 mg Morphine Sulfate () 1 mg IV Q4H PRN PRN PRN Reason: SEVERE PAIN (6-10/10) Ondansetron HCl (Zofran) 4 mg IV Q8H PRN PRN PRN Reason: Nausea Oxybutynin Chloride (Ditropan) 5 mg PO DAILY [facility] Last Admin: 06/18/17 08:58 Dose: 5 mg Pantoprazole Sodium (Protonix) 40 mg PO DAILY [facility] Last Admin: 06/18/17 08:59 Dose: 40 mg Polyethylene Glycol (Miralax) 17 gm PO DAILY [facility] Last Admin: 06/18/17 08:58 Dose: Not Given Potassium Chloride (K[facility]Dur) [facility] Last Admin: 06/18/17 08:56 Dose: 20 meq Sodium Chloride () 5 - 30 ml IV UD PRN PRN Reason: SALINE FLUSH Last Admin: 06/18/17 05:06 Dose: 10 ml Sodium Chloride ([place] Nasal [place]) 2 spray NASAL TID PRN PRN PRN Reason: NASAL DRYNESS Tramadol HCl (Ultram) 50 mg PO Q6H PRN PRN PRN Reason: MODERATE PAIN (4-5/10) Last Admin: 06/18/17 08:56 Dose: 50 mg Venlafaxine HCl (Effexor Xr) 150 mg PO DAILY [facility] Last Admin: 06/18/17 08:58 Dose: 150 mg Medical Necessity - Tobacco Use Smoking Status: Current every day smoker Tobacco Use: Cigarettes Assessment/Plan 1. Acute on Chronic heart failure Stable. Doing very well. In negative balance by about 3 L the last 24 hours. Lungs Clear to auscultation. Will continue p.o. bumetanide. DC home today. 2. Acute on chronic hypoxic respiratory failure due to heart failure and COPD With ambulation, saturation was 89% on 6 L of oxygen. Patient has oxygen at home and usually is on 4 L. Counseled to titrate oxygen for about 4-6 L to be comfortable. 3. NSTEMI: left heart cath showed normal coronaries. Will monitor. On aspirin and statin. Allergy documented to aspirin, but patient says it was a long time ago, after she was given a large dose of aspirin. She has since been taking baby aspirin with no problems, and is ok with taking it. Will give scripts for aspirin and statin upon discharge. 4. Acute COPD exacerbation: on bronchodilators and steroids. On breathing treatments with duneb 5. History of PE: on PO eliquis 6. Bilateral LE lymphedema; stable. Edema has resolved. On bumetanide 7. Nonsustained ventricular tachycardia: stable. Electrolytes being monitored and replaced. 8. DVT prophylaxis: on eliquis Disposition: for dc home today. Follow Up with senior medical writer. and PCP Code Visit Inpatient E&M: [id number] [facility] Hosp L3
--- NOTE | 2017-06-18 11:06 | PN_ITS ---
Subjective: Patient is a 52-year-old female was admitted with a complaint of worsening shortness of breath and lower extremity edema. She was managed for N STEMI and left heart cath done showed normal coronaries and normal ejection fraction. She is being diuresed with IV Lasix and has remained stable. Seen and examined today. She was very comfortable had no complaints. She denied any shortness of breath and was able to ambulate without any shortness of breath. She denies any chest pain, abdominal pain, diarrhea vomiting. Review of systems otherwise negative. Vitals/I&O's: Vital Signs Temp Pulse Resp BP Pulse Ox 98.2 F 80 16 127/70 H 90 06/18/17 09:00 06/18/17 09:00 06/18/17 09:00 06/18/17 09:00 06/18/17 09:00 Oxygen Flow Rate (L/min) [ 6 AMBULATION with Oxygen] Oxygen Flow Rate (L/min) 4 Oxygen Delivery Method Nasal Cannula Weight: 298 lb 1.039 oz Body Mass Index (BMI) 50.8 Intake and Output for Last 24 Hours 06/16/17 06/17/17 06/18/17 23:59 23:59 23:59 Intake Total 1280 / 1280 1630 / 1630 460 / 460 Output Total 2530 / 2530 4675 / 4675 Balance -1250 / -1250 -3045 / -3045 460 / 460 General: Alert, Oriented x3, Cooperative, No apparent distress HEENT: Atraumatic, PERRLA, EOMI, Normocephalic Oral: Moist Mucosa Neck: Supple, No JVD, Negative Carotid Bruits Lungs: Clear to auscultation, Normal air movement, No rhonchi, No wheeze, No rales Cardiovascular: Regular rate, Regular Rhythm, Normal S1, Normal S2, No murmurs Abdomen: Bowel Sounds Present, Soft, Non Tender, No Hepato-splenomegaly, - - Obese abdomen Extremities: No edema, Capillary Refill Less than 3 Seconds, - Skin: No rashes, - - Venous stasis discoloration of lower extremities Musculoskeletal: No Tenderness to Palpation of Joints or Extremities Lymphatic: No Cervical, Supraclavicular, or Inguinal Adenopathy Neurological: Cranial nerves II-XII grossly intact, Neuro grossly intact, Motor Exam 5/5 strength throughout Psych/Mental Status: Normal Affect, Appropriate, Alert and oriented to time, place, person, mood and affect Current Medications Acetaminophen (Tylenol) 650 mg PO Q6H PRN PRN PRN Reason: Mild Pain (scale 0-3)/T>100.7 Last Admin: 06/14/17 05:44 Dose: 650 mg Al Hydroxide/Mg Hydroxide (Mylanta Ii) 30 ml PO Q6H PRN PRN PRN Reason: Gastric Burning Albuterol Sulfate (Ventolin Aerosols) 2.5 mg INHALATION Q2H PRN PRN PRN Reason: SHORTNESS OF BREATH Last Admin: 06/15/17 06:54 Dose: 2.5 mg Albuterol/Ipratropium (Duoneb) 3 ml INHALATION Q4HWA.RT [facility] Last Admin: 06/18/17 06:49 Dose: 3 ml Apixaban (Eliquis) 5 mg PO 0800,1999 [facility] Aspirin (Aspirin, Baby) 81 mg PO DAILY@0800 [facility] Last Admin: 06/18/17 08:56 Dose: 81 mg Atorvastatin Calcium (Lipitor) 40 mg PO QHS [facility] Last Admin: 06/17/17 21:05 Dose: 40 mg Bisacodyl (Dulcolax) 10 mg RECTAL DAILY PRN PRN PRN Reason: Constipation Bumetanide (Bumex) 2 mg PO BID [facility] Last Admin: 06/18/17 08:57 Dose: 2 mg Buspirone HCl (Buspar) 7.5 mg PO BID [facility] Last Admin: 06/18/17 08:57 Dose: 7.5 mg Docusate Sodium (Colace) 100 mg PO BID PRN PRN Reason: Constipation Folic Acid (Folic Acid) 1 mg PO DAILY@0800 [facility] Last Admin: 06/18/17 08:56 Dose: 1 mg Gab[facility] ([facility]) [facility] Last Admin: 06/18/17 08:57 Dose: 100 mg Guaifenesin (Mucinex) 1,200 mg PO BID [facility] Last Admin: 06/18/17 08:58 Dose: 1,200 mg Hydralazine HCl (Apresoline Iv) 10 mg IV Q8H PRN PRN PRN Reason: for SBP greater than 160 Last Admin: 06/17/17 05:13 Dose: 10 mg Hydroxyzine HCl (Atarax Tablet) 10 mg PO TID PRN PRN Reason: Anxiety/itching Last Admin: 06/18/17 08:57 Dose: 10 mg Sodium Chloride () 1,000 mls @ 0 mls/hr IV .Q0M [facility] PRN Reason: KVO Levothyroxine Sodium (Synthroid) 25 mcg PO DAILY@0600 [facility] Last Admin: 06/18/17 05:06 Dose: 25 mcg Losartan Potassium (Cozaar) 50 mg PO DAILY [facility] Last Admin: 06/18/17 08:58 Dose: 50 mg Methylprednisolone (Solu-Medrol) 40 mg IV Q8 [facility] Last Admin: 06/18/17 05:06 Dose: 40 mg Metoprolol Tartrate (Lopressor (Beta Garrett)) 25 mg PO BID [facility] Last Admin: 06/18/17 08:58 Dose: 25 mg Morphine Sulfate () 1 mg IV Q4H PRN PRN PRN Reason: SEVERE PAIN (6-10/10) Ondansetron HCl (Zofran) 4 mg IV Q8H PRN PRN PRN Reason: Nausea Oxybutynin Chloride (Ditropan) 5 mg PO DAILY [facility] Last Admin: 06/18/17 08:58 Dose: 5 mg Pantoprazole Sodium (Protonix) 40 mg PO DAILY [facility] Last Admin: 06/18/17 08:59 Dose: 40 mg Polyethylene Glycol (Miralax) 17 gm PO DAILY [facility] Last Admin: 06/18/17 08:58 Dose: Not Given Potassium Chloride (K-Dur) [facility] Last Admin: 06/18/17 08:56 Dose: 20 meq Sodium Chloride () 5 - 30 ml IV UD PRN PRN Reason: SALINE FLUSH Last Admin: 06/18/17 05:06 Dose: 10 ml Sodium Chloride ([place] Nasal [place]) 2 spray NASAL TID PRN PRN PRN Reason: NASAL DRYNESS Tramadol HCl (Ultram) 50 mg PO Q6H PRN PRN PRN Reason: MODERATE PAIN (4-5/10) Last Admin: 06/18/17 08:56 Dose: 50 mg Venlafaxine HCl (Effexor Xr) 150 mg PO DAILY [facility] Last Admin: 06/18/17 08:58 Dose: 150 mg Medical Necessity - Tobacco Use Smoking Status: Current every day smoker Tobacco Use: Cigarettes Assessment/Plan 1. Acute on Chronic heart failure * Stable. Doing very well. In negative balance by about 3 L the last 24 hours. * Lungs Clear to auscultation. Will continue p.o. bumetanide. * DC home today. * * 2. Acute on chronic hypoxic respiratory failure due to heart failure and COPD * With ambulation, saturation was 89% on 6 L of oxygen. Patient has oxygen at home and usually is on 4 L. Counseled to titrate oxygen for about 4-6 L to be comfortable. * * 3. NSTEMI: left heart cath showed normal coronaries. Will monitor. On aspirin and statin. Allergy documented to aspirin, but patient says it was a long time ago, after she was given a large dose of aspirin. She has since been taking baby aspirin with no problems, and is ok with taking it. Will give scripts for aspirin and statin upon discharge. 4. Acute COPD exacerbation: on bronchodilators and steroids. On breathing treatments with duneb 5. History of PE: on PO eliquis 6. Bilateral LE lymphedema; stable. Edema has resolved. On bumetanide 7. Nonsustained ventricular tachycardia: stable. Electrolytes being monitored and replaced. 8. DVT prophylaxis: on eliquis Disposition: for dc home today. Follow Up with ac/dc rewinder. and PCP Code Visit Inpatient E&M: [id number] [facility] Hosp L3
--- NOTE | 2017-06-18 11:12 | PCM.DC ---
- Discharge Diagnoses Current Active Problems: Current Active and Chronic Problems CHF exacerbation (Acute) COPD exacerbation (Acute) Elevated troponin (Acute) Abnormal EKG (Acute) You will use the following diet at home:: Cardiac Your food should be the consistency of: Regular Your liquids should be the consistency of: Regular/Thin Discharge Activity: Return to Normal Activity May resume sexual activity in: No Restrictions Weight Bearing Status: Weight bearing as tolerated Call your doctor if you observe: Shortness of breath, Swelling in the ankles Allergies/Adverse Reactions: Allergies aspirin [From Percodan] Allergy (Verified 06/13/17 16:36) Hives oxycodone HCl [From Percodan] Allergy (Verified 06/13/17 16:36) Hives oxycodone terephthalate [From Percodan] Allergy (Verified 06/13/17 16:36) Hives Sulfa (Sulfonamide Antibiotics) Allergy (Verified 06/13/17 16:36) Hives cefuroxime Adverse Reaction (Verified 06/13/17 16:36) Unknown Cephalosporins Adverse Reaction (Verified 06/13/17 16:36) Vomiting meperidine HCl [From Demerol] Adverse Reaction (Verified 06/13/17 16:36) Vomiting NSAIDS (Non-Steroidal Anti-Inflamma Adverse Reaction (Verified 06/13/17 16:36) Unknown oxycodone [Oxycodone] Adverse Reaction (Verified 06/13/17 16:36) Rash procaine [Procaine] Adverse Reaction (Verified 06/13/17 16:36) Upset Stomach Medications to take at Discharge Acetaminophen 500 mg PO Q6H PRN 11/28/16 Albuterol Inhaler [Ventolin Hfa] 1 - 2 puff INHALATION Q4H PRN PRN 11/28/16 Buspirone HCl 7.5 mg PO BID 11/28/16 Cholecalciferol (Vitamin D3) [Vitamin D3] 50,000 unit PO QWEEK 11/28/16 Docusate Sodium [Stool Softener] 100 mg PO BID PRN PRN 11/28/16 Folic Acid 1 mg PO DAILY 11/28/16 Gabapentin [Neurontin] 100 mg PO BIDCM 11/28/16 Levothyroxine [Synthroid] 25 mcg PO DAILY 11/28/16 Metoprolol Succinate 25 mg PO DAILY 11/28/16 Oxybutynin [Ditropan] 5 mg PO DAILY 11/28/16 Venlafaxine HCl [Venlafaxine HCl ER] 150 mg PO DAILY 11/28/16 Hydroxyzine HCl 10 mg PO TID 06/13/17 Multivitamin with Iron [Tab-A-Jessica with Iron] 1 each PO DAILY 06/13/17 Apixaban [Eliquis] 5 mg PO 799,1999 #60 tab 06/18/17 Aspirin [Aspirin, Baby] 81 mg PO DAILY@0800 #30 tab.chew 06/18/17 Atorvastatin Calcium [Lipitor] 40 mg PO QHS #30 tab 06/18/17 Bumetanide [Bumex] 2 mg PO BID #60 tab 06/18/17 Losartan Potassium [Cozaar] 50 mg PO DAILY #30 tab 06/18/17 Metoprolol Tartrate [Lopressor (beta vineet)] 25 mg PO BID #60 tab 06/18/17 The following prescriptions were given: Apixaban [Eliquis] 5 mg PO 799,1999 #60 tab Aspirin [Aspirin, Baby] 81 mg PO DAILY@0800 #30 tab.chew Atorvastatin Calcium [Lipitor] 40 mg PO QHS #30 tab Losartan Potassium [Cozaar] 50 mg PO DAILY #30 tab Bumetanide [Bumex] 2 mg PO BID #60 tab Metoprolol Tartrate [Lopressor (beta vineet)] 25 mg PO BID #60 tab Primary Care Physician: Brian Thao MD [Primary Care Provider] - Please Follow Up With: Joey Spear MD When: one week Proposed Discharge Date: 06/18/17
--- NOTE | 2017-06-18 11:14 | PCM.DC.SUM ---
Discharge Date and Diagnosis Date of Admission: 06/13/17 Date of Discharge: 06/18/17 - Primary Discharge Diagnosis Active and Suspected Problems CHF exacerbation (Acute) COPD exacerbation (Acute) Elevated troponin (Acute) Abnormal EKG (Acute) - Secondary Discharge Diagnosis Chronic Problems Morbid obesity with BMI of 60.0-69.9, adult (Chronic) Transaminitis (Chronic) Hospital Course and Treatment Imaging Results: Diagnostic Data Chest X-Ray 06/13/17 16:50 IMPRESSION: Pulmonary venous congestion with possible associated interstitial edema. Cardiomegaly. Electronically Signed: Cintia Villafuerte MD at 17:11 EDT Tel , Service support , Chest CTA 06/14/17 09:04 IMPRESSION: 1. Negative for pulmonary embolism or thoracic aortic dissection 2. Markedly enlarged main pulmonary artery suggests pulmonary hypertension 3. Diffuse mild pulmonary edema suggesting CHF 4. Hypodense rounded lesion in the right lung base. Stable since 2012. Electronically Signed: Reji Mayer DO at 10:52 EDT Tel , Service support , ADDENDUM: 06/14/17 1100 cardiology Operations: None Procedures: 2-D Echocardiogram, Cardiac catheterization Summary of Care Provided: Patient is a 52-year-old female with a history of heart failure with preserved ejection fraction, chronic respiratory failure due to heart failure and COPD, on 4 L of home oxygen; she was admitted with a complaint of worsening shortness of breath and lower extremity edema. Chest x-ray showed pulmonary venous congestion and interstitial edema. There were ST depression in V1 and V2 with T-wave inversion in V1 to V3 on the EKG. She had mildly elevated troponin at 0.8. She was managed for acute decompensated heart failure and NSTEMI. Transthoracic echocardiogram showed moderate concentric left ventricular hypertrophy with EF of 75% and stage I diastolic dysfunction. She had a severely dilated right ventricle with severe global right ventricular systolic dysfunction. Right ventricular systolic pressure was estimated to be 56 mmHg. She also had moderately enlarged left atrium and mildly enlarged right atrium. Had left heat catheterisation which showed nonobstructive coronary artery disease. She was on IV Lasix which was switched to p.o. bumetanide 2 mg daily. She was also started on Cozaar and started on Eliquis history of PE. Blood on baby aspirin, statin and Imdur. She remained stable around 4 L of oxygen which is her home oxygen level. She was discharged on 06/18/2017, to follow-up with primary care doctor and risk compliance analyst in a week's time. Note, even though patient has a history of aspirin allergy, upon further inquiry she said in the past she was given a large dose of aspirin which she reacted to (doesnt remember the dose or indication). She has since been on baby aspirin and has done very well on that. Patient was therefore discharged him on aspirin as well as statin. Discharge Activity: Return to Normal Activity May resume sexual activity in: No Restrictions Weight Bearing Status: Weight bearing as tolerated Call your doctor if you observe: Shortness of breath, Swelling in the ankles Home Medications: Medications to take at Discharge Acetaminophen 500 mg PO Q6H PRN 11/28/16 Albuterol Inhaler [Ventolin Hfa] 1 - 2 puff INHALATION Q4H PRN PRN 11/28/16 Buspirone HCl 7.5 mg PO BID 11/28/16 Cholecalciferol (Vitamin D3) [Vitamin D3] 50,000 unit PO QWEEK 11/28/16 Docusate Sodium [Stool Softener] 100 mg PO BID PRN PRN 11/28/16 Folic Acid 1 mg PO DAILY 11/28/16 Gabapentin [Neurontin] 100 mg PO BIDCM 11/28/16 Levothyroxine [Synthroid] 25 mcg PO DAILY 11/28/16 Metoprolol Succinate 25 mg PO DAILY 11/28/16 Oxybutynin [Ditropan] 5 mg PO DAILY 11/28/16 Venlafaxine HCl [Venlafaxine HCl ER] 150 mg PO DAILY 11/28/16 Hydroxyzine HCl 10 mg PO TID 06/13/17 Multivitamin with Iron [Tab-A-Jessica with Iron] 1 each PO DAILY 06/13/17 Apixaban [Eliquis] 5 mg PO 0800,1999 #60 tab 06/18/17 Aspirin [Aspirin, Baby] 81 mg PO DAILY@0800 #30 tab.chew 06/18/17 Atorvastatin Calcium [Lipitor] 40 mg PO QHS #30 tab 06/18/17 Bumetanide [Bumex] 2 mg PO BID #60 tab 06/18/17 Losartan Potassium [Cozaar] 50 mg PO DAILY #30 tab 06/18/17 Metoprolol Tartrate [Lopressor (beta vineet)] 25 mg PO BID #60 tab 06/18/17 Following Prescrptions Were Given to Patient: Apixaban [Eliquis] 5 mg PO 799,1999 #60 tab Aspirin [Aspirin, Baby] 81 mg PO DAILY@0800 #30 tab.chew Atorvastatin Calcium [Lipitor] 40 mg PO QHS #30 tab Losartan Potassium [Cozaar] 50 mg PO DAILY #30 tab Bumetanide [Bumex] 2 mg PO BID #60 tab Metoprolol Tartrate [Lopressor (beta vineet)] 25 mg PO BID #60 tab Primary Care Physician: Brian Thao MD [Primary Care Provider] - Please follow up with your Primary Care Physician in: one week Please Follow Up With: Joey Spear MD When: one week Disposition: Home Minutes spent on discharge:: 30 Patient Condition:: Good Medical Necessity - Tobacco Use Smoking Status: Current every day smoker Tobacco Use: Cigarettes Meaningful Use Info Meaningful Use Diagnoses (Choose all that apply): CHF - CHF DEJON/ARB ordered at discharge?: Yes Documented LVEF (%): 75 Code Visit Inpatient E&M: 39767 Disch Hosp
--- NOTE | 2017-06-18 12:44 | PCA ---
faxed D/C papers to [facility] and called and left message with estimated D/C time.
[2017-06-19 09:37] LABS: Pathologist Review Reviewed
--- NOTE | 2017-06-19 14:00 | CASEMGMT ---
RN CM discharge phone call. Attempted f/u call, no answer. Timothy HUBERN RN ACM
--- NOTE | 2017-06-20 11:01 | CASEMGMT ---
MARIEL CM DC Phone call- attempted call to cell phone. No answer. Timothy HUBERN RN ACM
== END 2017-06-18 13:06 | disposition home or self-care (01) | DRG 121 ==
LOC: ED 18:45 → PCU 18:54
PROVIDERS: Internal Medicine; Internal Medicine Cardiovascular Disease; Admitting Provider Internal Medicine; Emergency Provider Emergency Medicine; Family Provider Internal Medicine; PCP Internal Medicine; Visit Provider Student in an Organized Health Care Education/Training Program
DX: I50.813 Acute on chronic right heart failure (principal); I21.4 Non-ST elevation (NSTEMI) myocardial infarction; J96.21 Acute and chronic respiratory failure with hypoxia; J44.1 Chronic obstructive pulmonary disease with (acute) exacerbation; J44.0 Chronic obstructive pulmonary disease with (acute) lower respiratory infection; I47.2 Ventricular tachycardia; F17.210 Nicotine dependence, cigarettes, uncomplicated; J20.9 Acute bronchitis, unspecified; I27.81 Cor pulmonale (chronic); I27.20 Pulmonary hypertension, unspecified; Z86.711 Personal history of pulmonary embolism; Z86.718 Personal history of other venous thrombosis and embolism; I25.2 Old myocardial infarction; Z79.01 Long term (current) use of anticoagulants; K21.9 Gastro-esophageal reflux disease without esophagitis; G47.33 Obstructive sleep apnea (adult) (pediatric); Z99.81 Dependence on supplemental oxygen; I11.0 Hypertensive heart disease with heart failure; R94.31 Abnormal electrocardiogram [ECG] [EKG]; I89.0 Lymphedema, not elsewhere classified; Z79.51 Long term (current) use of inhaled steroids; Z79.899 Other long term (current) drug therapy; E66.01 Morbid (severe) obesity due to excess calories; Z68.43 Body mass index [BMI] 50.0-59.9, adult; Z91.14 Patient's other noncompliance with medication regimen; E78.5 Hyperlipidemia, unspecified
CPT/HCPCS: 36415; 51702; 71045; 71275; 80048; 80061; 80076; 81002; 81025; 83735; 83880; 84443; 84484; 85025; 85027; 85379; 85610; 85652; 85730; 86140; 87804; 93005; 93306; 93458; 93970; 94640; 94667; 94668; 97110; 97162; 97165; 97802; 99285; 99406; J7040; Q9957; Q9967; A4216; C1769; C1894; C8929; J1940

== ENCOUNTER 2018-01-06 14:43 | Observation (INO) | payer MEDICAID, SELFPAY ==
[2018-01-06] VITALS (9 sets, daily range): BP systolic 111–135; BP diastolic 66–98; PULSE 79–90; RESP 16–24; TEMP 35.7–36.9; O2SAT 84–96; BMI 46.0; BMI 52.1
--- NOTE | 2018-01-06 15:05 | EKG12_ITS ---
Test Reason : SOB Blood Pressure : / mmHG Vent. Rate : 077 BPM Atrial Rate : 077 BPM P-R Int : 184 ms QRS Dur : 110 ms QT Int : 422 ms P-R-T Axes : 060 121 -24 degrees QTc Int : 477 ms Normal sinus rhythm Right axis deviation Right ventricular hypertrophy with repolarization abnormality Septal infarct , age undetermined T wave abnormality, consider inferior ischemia Abnormal ECG Confirmed by JM BONILLA, BRODY ([id number]), editor producer REY ADAIR ([id number]) on 01/08/2018 2:15:32 PM Referred By: ELIECER Confirmed By:BRODY ONEAL MD
--- NOTE | 2018-01-06 15:09 | ED.VISSUMM ---
- ER Visit Summary Date of Service: 01/06/18 Chief Complaint: Shortness of breath History of Present Illness: The patient is a 52 F with progressive shortness of breath for the past 1 week. She does describe cough with clear to green colored sputum. She denies fever or chills. She is also complaining of wounds to the backs of her upper thighs for the past week or so. She has noted mild drainage from these wounds as well. Past history is significant for CHF, COPD, PE, and hypothyroidism. Patient is currently on Eliquis. She also is on home oxygen at 5-6 L. Patient states she has increased the frequency of her breathing treatments. Physical Examination: Blood pressure is 119/72, temperature 98.1, heart rate 79, respiratory rate 18, pulse ox 84% on room air. O2 sat is 96% on 4-1/2 L nasal cannula. Patient sitting upright in bed no acute distress. She is speaking full sentences. Head and neck examination is unremarkable. Heart is regular rate and rhythm. Lung sounds with occasional crackles. Abdomen is soft and nontender. Lower extremity examination reveals 3+ edema. She has erythema to her lower legs and feet, but states this is her baseline. Test Results: Portable chest x-ray is read by radiology is stable prominence of the pulmonary arteries. I believe there is a degree of pulmonary edema. EKG is sinus at 77. She has diffuse T inversions and anterior ST depression. Mild changes are noted when compared to her prior EKG. CBC is normal. Chemistry studies are significant for a creatinine of 1.81 which is above her baseline. Potassium is 3.3. Troponin is less than 0.015. BNP is 1251. Emergency Department Course and Treatment: On repeat examination patient is sleeping comfortably. O2 sats remained in the mid 90s on 3 L. Patient did roll to her side so I could examine her legs and back. She has areas consistent with cellulitis on the backs of her legs, but only very mild superficial skin breakdown. No ulcerations are noted. There is also a patch of cellulitis on the right side of her back. Patient be given Lasix IV along with potassium p.o. She will be given a dose of IV clindamycin. Treatment Plan: [] Disposition: Admit Impression: 1. CHF exacerbation 2. Renal insufficiency 3. Hypokalemia 4. Cellulitis This note was generated with Dragon dictation software. It may contain incorrect words, spelling, and punctuation that were not noted in review of the chart prior to signing ED Disposition - Plan for ED Patient: Chief Complaint: Shortness of Breath Referrals: Brian Thao MD [Primary Care Provider] -
--- NOTE | 2018-01-06 15:35 | RAD_ITS ---
STUDY: X-RAY CHEST REASON FOR EXAM: Female, 52 years old. Shortness of breath. TECHNIQUE: Single frontal view of the chest. COMPARISON: June 13, 2017 FINDINGS: There is no new focal consolidation. Normal size heart. There is stable prominence of the pulmonary arteries. Normal visualized aortic arch and descending thoracic aorta. Normal visualized thoracic spine. Normal visualized ribs, clavicles, and shoulders. There is no demonstrated abnormality of the visualized soft tissue structures of the upper abdomen. RAD/Chest 1 View (Portable) IMPRESSION: Stable prominence of the pulmonary arteries may reflect underlying pulmonary artery hypertension. Electronically Signed: Cintia Villafuerte MD at 16:26 EST Tel , Service support ,
[2018-01-06 15:57] LABS: Absolute Neutrophil Count 3.8 X10^3/uL (2.0-7.7); Basophil# 0.06 X10^3/uL; Eosinophil# 0.14 X10^3/uL; Eosinophils% 2.3 % (0-5); Hematocrit 53.6 % (37-47); Hemoglobin 14.4 g/dl (12.0-15.0); Lymphocyte % 21.6 % (19-41); Mean Corp Hgb Conc 26.9 g/gl (32-36); Mean Corpuscular Hgb 19.6 pg (27.0-32.0); Mean Corpuscular Volume 72.8 fL (81-99); Monocyte# 0.77 X10^3/uL; Monocyte% 12.8 % (0-10); Neutrophil # 3.75 X10^3/uL (2.7-7.7); Neutrophil % 62.1 % (47-70); Platelet Count 273 K/mm3 (150-450); RBC Distribution Width SD 62.7 fl (35.1-43.9)
[2018-01-06 15:58] LABS: Differential Indicated SCAN CRITERIA MET; POSITIVE COUNT NO; POSITIVE DIFFERENTIAL NO; POSITIVE MORPHOLOGY YES; Red Blood Count 7.36 M/mm3 (4.2-5.4)
[2018-01-06 16:11] LABS: Anion Gap 5 (5-15); BUN 34 mg/dL (7-18); BUN/Creat Ratio 18.8 RATIO (10-20); Calcium,Total 8.8 mg/dL (8.5-10.1); Chloride 98 mmol/L (98-107); Creatinine, Serum 1.81 mg/dL (0.55-1.02); EST Glomerular Filtration Rate 31 mL/min (>60); Est Glom Filt Rate - Afr Amer 37 mL/min (>60); Estimated Creatinine Clearance 33.26 ml/min; Glucose 83 mg/dL (74-106); Potassium 3.3 mmol/L (3.5-5.1); Sodium Level 142 mmol/L (136-145)
[2018-01-06 16:28] LABS: BNP,B-Type NATRIURETIC PEPTIDE 1251.5 pg/mL (0-100)
[2018-01-06 16:45] LABS: Anisocytosis 4+; Differential Comment SCANNED; Platelet Estimate ADEQUATE (ADEQ); Polychromasia 1+
[2018-01-06 16:46] LABS: Hypochromasia 2+; Microcytosis 1+; Stomatocyte RARE
--- NOTE | 2018-01-06 17:17 | NURSING ---
PCU CHF, CELLULITIS TERELETSLEIGH OBS
[2018-01-06] MEDS: Furosemide 40 MG/4 ML Vial IV ×2 (17:18→21:16)
--- NOTE | 2018-01-06 19:05 | PCM.HOSP.N ---
Hospitalist Note She was seen and examined today independently of Jennyfer Kimball, she came to the emergency room at [facility] with complaints of dyspnea, patient was vague about the length of time that she has been short of breath. She told the emergency room physician she usually comes in the hospital every so often and stays 2 days to get fluid off her . Workup in the emergency room included a chest x-ray which showed some haziness in the right and left lower lobes but no evidence of pulmonary edema, patient's labs showed a slightly elevated creatinine over the patient's baseline, patient's white blood cell count was normal. Patient's beta natruretic peptide was elevated at 1251, patient's potassium was 3.3. Physical exam: On examination she appeared in good health and spirits, patient did not appear in respiratory distress. Vital signs as documented. Skin warm and dry, patient's lower legs were reddened and showed evidence of chronic edema, patient had generalized edema over both her lower legs, there was some superficial abrasions over the back of her right upper leg, there is no discharge noted from these areas.. Neck without JVD. Lungs clear, breath sounds are distant. Heart exam notable for regular rhythm, normal sounds and absence of murmurs, rubs or gallops. Abdomen unremarkable and without evidence of organomegaly, masses, or abdominal aortic enlargement. Extremities nonedematous. Neuro: Cranial nerves II through XII are grossly intact, no focal motor deficits were noted, sensation to light touch and pinprick are intact. Psych: Patient is alert and oriented x3 and does not appear to be depressed or anxious. I talked to the patient at length, patient continues to smoke 1-1/2 packs of cigarettes a day even though she is on chronic oxygen, her oxygen requirement in the emergency room is actually 3 L which is less than her stated home O2 requirement which is 5-6 L. Patient's creatinine is elevated over her baseline, I told the patient that I will place her into observation status and give her IV Lasix and she would be reevaluated tomorrow to see if she needed to stay in the hospital. Patient's last echocardiogram showed moderate pulmonary hypertension with preserved EF, she had a recent cardiac catheterization which showed no coronary artery disease and a preserved ejection fraction. I think there may be an element of self neglect with this patient. I have reviewed Jennyfer Kimball's history and physical and medical plan of care and endorse it. Code Visit OBSV E&M: 14347 Initial observation care L3
--- NOTE | 2018-01-06 19:10 | CCHN_ITS ---
Hospitalist Note She was seen and examined today independently of Jennyfer Kimball, she came to the emergency room at [facility] with complaints of dyspnea, patient was vague about the length of time that she has been short of breath. She told the emergency room physician she usually comes in the hospital every so often and stays 2 days to get fluid off her . Workup in the emergency room included a chest x-ray which showed some haziness in the right and left lower lobes but no evidence of pulmonary edema, patient's labs showed a slightly elevated creatinine over the patient's baseline, patient's white blood cell count was normal. Patient's beta natruretic peptide was elevated at 1251, patient's potassium was 3.3. Physical exam: On examination she appeared in good health and spirits, patient did not appear in respiratory distress. Vital signs as documented. Skin warm and dry, patient's lower legs were reddened and showed evidence of chronic edema, patient had generalized edema over both her lower legs, there was some superficial abrasions over the back of her right upper leg, there is no discharge noted from these areas.. Neck without JVD. Lungs clear, breath sounds are distant. Heart exam notable for regular rhythm, normal sounds and absence of murmurs, rubs or gallops. Abdomen unremarkable and without evidence of or ganomegaly, masses, or abdominal aortic enlargement. Extremities nonedematous. Neuro: Cranial nerves II through XII are grossly intact, no focal motor deficits were noted, sensation to light touch and pinprick are intact. Psych: Patient is alert and oriented x3 and does not appear to be depressed or anxious. I talked to the patient at length, patient continues to smoke 1-1/2 packs of cigarettes a day even though she is on chronic oxygen, her oxygen requirement in the emergency room is actually 3 L which is less than her stated home O2 requirement which is 5-6 L. Patient's creatinine is elevated over her baseline, I told the patient that I will place her into observation status and give her IV Lasix and she would be reevaluated tomorrow to see if she needed to stay in the hospital. Patient's last echocardiogram showed moderate pulmonary hypertension with preserved EF, she had a recent cardiac catheterization which showed no coronary artery disease and a preserved ejection fraction. I think there may be an element of self neglect with this patient. I have reviewed Jennyfer Kimball's history and physical and medical plan of care and endorse it. Code Visit OBSV E&M: 48628 Initial observation care L3
[2018-01-06] MEDS: Ipratropium/Albuterol Sulfate 3 ML AMPUL.NEB INHALATION (19:36)
--- NOTE | 2018-01-06 20:12 | NUR.TO.PHY ---
H&P Placed on wrong patient w/PHI removed/modified from header as best as possible by Ethan Temple Data recorded for future reference. Keep in mind, most data pulled in from other sources are done so via a template and most likely are not applicable. 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 The patient is a 52 year old F who presents emergency room due to shortness of breath. Patient has chronic hypoxic respiratory failure due to COPD and chronic diastolic CHF requiring 6 L nasal cannula continuously at baseline. Patient states she has had increased shortness of breath for a few weeks. She denies cough, fever, chills. She smokes a pack and 1/2/day. Denies known weight gain, denies increase in lower extremity swelling. Patient states she is noncompliant with recommended continuous supplemental oxygen of 6 L nasal cannula due to it giving her headache. She has a past medical history of obstructive sleep apnea, chronic tobacco use, bilateral lower extremity lymphedema, super morbid obesity, history of PE, chronic hypoxic respiratory failure due to chronic COPD and chronic diastolic CHF, hypertension, hyperlipidemia, depression, pulmonary hypertension, hypothyroidism. Past Medical History Past Medical History (Chronic Problems): Chronic Problems Lymphedema of both lower extremities (Chronic) Diabetes mellitus type 2 with neurological manifestations (Chronic) Morbid obesity due to excess calories (Chronic) Allergies Penicillins Allergy (Verified 10/18/16 17:02) Rash Home Medications: Ambulatory Orders Medication Instructions Recorded <THIS MAY NO LONGER BE APPLICABLE> Amlodipine [Norvasc] 10 mg PO DAILY 10/18/16 Aspirin [Aspirin EC] 325 mg PO DAILY 10/18/16 Atenolol [Tenormin (Beta Garrett)] 100 mg PO DAILY 10/18/16 Dorzolamide 2% [Trusopt] 2 drop EACH EYE TID 10/18/16 Fluoxetine HCl [Prozac] 20 mg PO DAILY 10/18/16 Gabapentin [Neurontin] 300 mg PO TIDCM 10/18/16 Glimepiride [Amaryl] 1 mg PO DAILY 10/18/16 Latanoprost 0.005% [Xalatan 1 drop EACH EYE QHS 10/18/16 Opthalmic] Losartan/Hydrochlorothiazide 1 tab PO DAILY 10/18/16 [Hyzaar 100-25 Tablet] Metformin HCl [Glucophage] 1,000 mg PO BIDCM 10/18/16 Naproxen [Naprosyn] 500 mg PO BID 10/18/16 Pravastatin [Pravachol] 40 mg PO QHS 10/18/16 Ropinirole HCl [Requip] 1 mg PO TID 10/18/16 Furosemide [Lasix] 20 mg PO DAILY 10/21/16 </THIS MAY NO LONGER BE APPLICABLE> Surgical History: - - 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 Denies: Chest Pain, Light Headedness, Palpitations, Syncope Respiratory: Reports: Shortness of Breath. Denies: Cough, Sputum production, Wheezing Gastrointestinal: Denies: Abdominal Pain, Nausea, Vomiting Genitourinary: Denies: Dysuria Musculoskeletal: Denies: Joint Pain, Joint Tenderness Skin: Reports: - - Chronic skin changes bilateral lower extremities. Denies: Rash, Wounds Neurological: Denies: Numbness, Tingling, Focal weakness Psychiatric: Reports: Depression Hematologic/ Lymphatic: Denies: Easy Bruising, Easy Bleeding VTE Information - Inpt Only VTE Present on Admission: No VTE Mechan Device Prophylaxis: None VTE Pharm Prophylaxis ordered?: Yes - Physical Exam General: Alert, Oriented x3, Cooperative HEENT: Atraumatic, PERRLA, EOMI, Normocephalic Oral: Moist Mucosa Neck: Supple, No JVD, Negative Carotid Bruits Lungs: Clear to auscultation, Diminished Cardiovascular: Regular rate, Regular Rhythm, Normal S1, Normal S2, No murmurs Abdomen: Bowel Sounds Present, Soft, Non Tender, Non-Distended, Obese Extremities: No clubbing, No cyanosis, Capillary Refill Less than 3 Seconds, Edema - Chronic lymphedema bilateral lower extremities Skin: No rashes, No breakdown, - - Chronic skin changes bilateral lower extremities, redness bilateral lower extremities. Musculoskeletal: No Tenderness to Palpation of Joints or Extremities Neurological: Cranial nerves II-XII grossly intact, Neuro grossly intact Psych/Mental Status: Anxious Vital Signs Temp Pulse Resp BP Pulse Ox 98.7 F 82 17 147/52 H 93 01/06/18 12:34 01/06/18 16:18 01/06/18 16:18 01/06/18 16:18 01/06/18 16:18 Oxygen Delivery Method Room Air Weight: 360 lb 14.347 oz Body Mass Index (BMI) 56.5 Laboratory Tests Past 24 Hrs 01/06/18 01/06/18 13:40 16:50 WBC 5.2 RBC 2.84 L Hgb 7.5 L Hct 24.1 L MCV 84.9 MCH 26.4 L MCHC 31.1 L RDW 14.4 RDW Differential 44.9 H Plt Count 177 MPV 9.6 Immature Gran % (Auto) 0.200 Neut % (Auto) 63.7 Lymph % (Auto) 26.5 [place] % (Auto) 7.5 Eos % (Auto) 1.9 Baso % (Auto) 0.2 Absolute Neuts (auto) 3.3 Absolute Lymphs (auto) 1.37 Total Counted Not Reportable Blood Type Pending Antibody Screen Pending Crossmatch See Detail Assessment/Plan All Active Problems Sarcoma of right lower extremity (Resolved) Dehiscence of external surgical wound (Resolved) 1. Acute on chronic diastolic CHF-BNP 1251. Chest x-ray without evidence of CHF. Echocardiogram 06/2017 EF 75%, stage 1 diastolic dysfunction, mild tricuspid valve insufficiency, RVSP 56mmhg. IV lasix. Strict I&O. Daily weight. Ras wrap bilateral lower extremities. Continue supplement oxygen to maintain O2 above 90%. 2. Mild hypokalemia-replace per protocol. Trend BMP. 3. ANIL on CKD stage III- Hold IVF given #1. Trend BMP. 4. Chronic COPD/obstructive sleep apnea/pulmonary hypertension with chronic hypoxic respiratory failure-albuterol and DuoNeb aerosols. Continue supplement oxygen to maintain O2 sat above 90%. Patient's oxygen stable on lower requirements then patient wears at baseline. Continue CPAP nightly. 5. History of PE-continue Eliquis. 6. Hypertension-stable, continue home losartan, metoprolol regimen. 7. Hyperlipidemia-continue statin. 8. Tobacco dependence-current pack and half per day smoker. Encouraged tobacco cessation. 9. Bilateral lower extremity lymphedema-Ras wraps bilateral lower extremities. Do note feel patient has cellulitis. Chronic skin changes BLLE. Eucerin and ras wraps. 10. Super morbid obesity-encouraged diet and lifestyle modifications. 11. Depression/anxiety-continue home venlafaxine/buspirone regimen. 12. Hypothyroidism-continue Synthroid regimen. DVT prophylaxis- Eliquis This patient was seen by CHERYL Lane under the supervision of Dr. Kiran.
[2018-01-06] MEDS: hydrOXYzine 10 MG Tablet PO (21:13)
[2018-01-06] MEDS: busPIRone 15 MG TABLET 7.5 MG PO (21:14)
[2018-01-06] MEDS: APIXABAN 5 MG TABLET PO (21:15)
[2018-01-06] MEDS: Atorvastatin Calcium 40 MG Tablet PO (21:16)
[2018-01-06] MEDS: Metoprolol Tartrate 25 MG Tablet PO (21:16)
[2018-01-06] MEDS: Gabapentin 300 MG Capsule PO (21:18)
[2018-01-06] MEDS: Acetaminophen 500 MG Tablet PO (21:19)
[2018-01-07] VITALS (10 sets, daily range): BP systolic 107–122; BP diastolic 60–83; PULSE 72–89; RESP 16–18; TEMP 35.9–37.1; O2SAT 90–93
[2018-01-07] MEDS: Ipratropium/Albuterol Sulfate 3 ML AMPUL.NEB INHALATION ×3 (00:43→13:34)
[2018-01-07] MEDS: Furosemide 40 MG/4 ML Vial IV ×2 (05:20→11:56)
[2018-01-07] MEDS: hydrOXYzine 10 MG Tablet PO ×2 (05:20→14:24)
[2018-01-07] MEDS: 0.9% NaCl Peripheral Flush Adult/Peds IV ×2 (05:21→11:55)
[2018-01-07] MEDS: Levothyroxine 25 MCG TABLET PO (05:21)
[2018-01-07] MEDS: Acetaminophen 500 MG Tablet PO ×2 (05:36→14:24)
[2018-01-07 06:03] LABS: Anion Gap 7 (5-15); BUN 29 mg/dL (7-18); BUN/Creat Ratio 20.1 RATIO (10-20); Calcium,Total 8.9 mg/dL (8.5-10.1); Chloride 101 mmol/L (98-107); Creatinine, Serum 1.44 mg/dL (0.55-1.02); EST Glomerular Filtration Rate 40 mL/min (>60); Est Glom Filt Rate - Afr Amer 49 mL/min (>60); Estimated Creatinine Clearance 43.43 ml/min; Glucose 103 mg/dL (74-106); Potassium 3.7 mmol/L (3.5-5.1); Sodium Level 146 mmol/L (136-145)
--- NOTE | 2018-01-07 08:30 | HP.PCM_ITS ---
Addendum entered and electronically signed by CHERYL Lane 01/07/18 08:50: Code Visit This document is a late entry: Patient examination and history and physical completed 01/06/2018 at 1709. Original Note: Problem List (1) CHF exacerbation Status: Acute Qualifiers: Heart failure type: diastolic Qualified Code(s): I50.33 - Acute on chronic diastolic (congestive) heart failure (2) Pulmonary embolus Status: Resolved Qualifiers: (3) Morbid obesity with BMI of 60.0-69.9, adult Status: Chronic (4) Sleep apnea syndrome Status: Suspected Qualifiers: (5) Viridans streptococci infection Status: Resolved (6) Bacteremia due to Streptococcus Status: Resolved (7) Acute kidney failure Status: Acute (8) Transaminitis Status: Chronic (9) COPD (chronic obstructive pulmonary disease) Status: Chronic (10) Hypothyroidism Status: Chronic (11) Lymphedema Status: Chronic (12) Hypertension Status: Chronic (13) CKD (chronic kidney disease) stage 3, GFR 30-59 ml/min Status: Chronic History of Present Illness Date of Admission: 01/06/18 Chief Complaint: Shortness of breath. The patient is a 62 year old F who presents emergency room due to shortness of breath. Patient has chronic hypoxic respiratory failure due to COPD and chronic diastolic CHF requiring 6 L nasal cannula continuously at baseline. Patient states she has had increased shortness of breath for a few weeks. She denies cough, fever, chills. She smokes a pack and 1/2/day. Denies known weight gain, denies increase in lower extremity swelling. Patient states she is noncompliant with recommended continuous supplemental oxygen of 6 L nasal cannula due to it giving her headache. She has a past medical history of obstructive sleep apnea, chronic tobacco use, bilateral lower extremity lymphedema, super morbid obesity, history of PE, chronic hypoxic respiratory failure due to chronic COPD and chronic diastolic CHF, hypertension, depression, pulmonary hypertension, hypothyroidism. Past Medical History Past Medical History (Chronic Problems): Chronic Problems COPD (chronic obstructive pulmonary disease) (Chronic) Hypothyroidism (Chronic) Lymphedema (Chronic) Hypertension (Chronic) CKD (chronic kidney disease) stage 3, GFR 30-59 ml/min (Chronic) Morbid obesity with BMI of 60.0-69.9, adult (Chronic) Transaminitis (Chronic) Allergies aspirin [From Percodan] Allergy (Verified 01/06/18 14:57) Hives oxycodone HCl [From Percodan] Allergy (Verified 06/13/17 16:36) Hives oxycodone terephthalate [From Percodan] Allergy (Verified 06/13/17 16:36) Hives Sulfa (Sulfonamide Antibiotics) Allergy (Verified 06/13/17 16:36) Hives cefuroxime Adverse Reaction (Verified 06/13/17 16:36) Unknown Cephalosporins Adverse Reaction (Verified 06/13/17 16:36) Vomiting meperidine HCl [From Demerol] Adverse Reaction (Verified 06/13/17 16:36) Vomiting NSAIDS (Non-Steroidal Anti-Inflamma Adverse Reaction (Verified 06/13/17 16:36) Unknown oxycodone [Oxycodone] Adverse Reaction (Verified 06/13/17 16:36) Rash Home Medications: Ambulatory Orders Medication Instructions Recorded Acetaminophen 500 mg PO Q6H PRN 11/28/16 Albuterol Inhaler [Ventolin Hfa] 1 - 2 puff INHALATION Q4H PRN PRN 11/28/16 Buspirone HCl 7.5 mg PO BID 11/28/16 Cholecalciferol (Vitamin D3) 50,000 unit PO QWEEK 11/28/16 [Vitamin D3] Docusate Sodium [Stool Softener] 100 mg PO BID PRN PRN 11/28/16 Folic Acid 1 mg PO DAILY 11/28/16 Gabapentin [Neurontin] 300 mg PO BIDCM 11/28/16 Levothyroxine [Synthroid] 25 mcg PO DAILY 11/28/16 Oxybutynin [Ditropan] 5 mg PO DAILY 11/28/16 Venlafaxine HCl [Venlafaxine HCl 150 mg PO DAILY 11/28/16 ER] Hydroxyzine HCl 10 mg PO TID 06/13/17 Multivitamin with Iron [Tab-A-Jessica 1 each PO DAILY 06/13/17 with Iron] Apixaban [Eliquis] 5 mg PO 0800,1999 #60 tab 06/18/17 Aspirin [Aspirin, Baby] 81 mg PO DAILY@0800 #30 tab.chew 06/18/17 Bumetanide [Bumex] 2 mg PO BID #60 tab 06/18/17 Losartan Potassium [Cozaar] 50 mg PO DAILY #30 tab 06/18/17 Metoprolol Tartrate [Lopressor 25 mg PO BID #60 tab 06/18/17 (beta vineet)] Surgical History: cholecystectomy, - - 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 Maternal History Items: - - Denies known cardiac history. Review of Systems Constitutional: Denies: Chills, Fever, Weight Change HEENT: Denies: Head Aches, Sinus Congestion, Sinus Drainage Cardiovascular: Reports: Edema - Chronic bilateral lower extremity edema. Denies: Chest Pain, Light Headedness, Palpitations, Syncope Respiratory: Reports: Shortness of Breath. Denies: Cough, Sputum production, Wheezing Gastrointestinal: Denies: Abdominal Pain, Nausea, Vomiting Genitourinary: Denies: Dysuria Musculoskeletal: Denies: Joint Pain, Joint Tenderness Skin: Reports: Wounds - Abrasions posterior right lower extremity., - - Chronic skin changes bilateral lower extremities.. Denies: Rash Neurological: Denies: Numbness, Tingling, Focal weakness Psychiatric: Reports: Depression Hematologic/ Lymphatic: Denies: Easy Bruising, Easy Bleeding VTE Information - Inpt Only VTE Present on Admission: No VTE Mechan Device Prophylaxis: None VTE Pharm Prophylaxis ordered?: Yes - Physical Exam General: Alert, Oriented x3, Cooperative HEENT: Atraumatic, PERRLA, EOMI, Normocephalic Oral: Moist Mucosa Neck: Supple, No JVD, Negative Carotid Bruits Lungs: Clear to auscultation, Diminished Cardiovascular: Regular rate, Regular Rhythm, Normal S1, Normal S2, No murmurs Abdomen: Bowel Sounds Present, Soft, Non Tender, Non-Distended, Obese Extremities: No clubbing, No cyanosis, Edema - Chronic lymphedema bilateral lower extremities. Skin: No rashes, No breakdown, - - Chronic skin changes bilateral lower extremities, redness bilateral lower extremities. Abrasions right posterior lo wer extremity. Musculoskeletal: No Tenderness to Palpation of Joints or Extremities Neurological: Cranial nerves II-XII grossly intact, Neuro grossly intact Psych/Mental Status: Anxious Vital Signs Temp Pulse Resp BP Pulse Ox 98.7 F 78 16 107/60 90 01/07/18 02:20 01/07/18 06:50 01/07/18 06:50 01/07/18 02:20 01/07/18 06:50 Oxygen Flow Rate (L/min) 6 Oxygen Delivery Method Nasal Cannula Weight: 328 lb 7.82 oz Body Mass Index (BMI) 52.1 Intake and Output for Last 24 Hours 01/05/18 01/06/18 01/07/18 23:59 23:59 23:59 Intake Total 220 / 220 150 / 150 Output Total 1650 / 1650 2550 / 2550 Balance -1430 / -1430 -2400 / -2400 Laboratory Tests Past 24 Hrs 01/06/18 01/06/18 01/06/18 15:13 15:13 15:13 WBC 6.0 RBC 7.36 H Hgb 14.4 Hct 53.6 H MCV 72.8 L MCH 19.6 L MCHC 26.9 L RDW 24.0 H RDW Differential 62.7 H Plt Count 273 MPV TNP Immature Gran % (Auto) 0.200 Neut % (Auto) 62.1 Lymph % (Auto) 21.6 [place] % (Auto) 12.8 H Eos % (Auto) 2.3 Baso % (Auto) 1.0 Absolute Neuts (auto) 3.8 Absolute Lymphs (auto) 1.30 Total Counted Not Reportable Differential Comment SCANNED Platelet Estimate ADEQUATE Polychromasia 1+ Hypochromasia 2+ Anisocytosis 4+ Microcytosis 1+ Stomatocytes RARE Sodium 142 Potassium 3.3 L Chloride 98 Carbon Dioxide 39.0 H Anion Gap 5 BUN 34 H Creatinine 1.81 H Estim Creat Clear Calc 33.26 Est GFR (MDRD) Af Amer 37 L Est GFR (MDRD) Non-Af 31 L BUN/Creatinine Ratio 18.8 Glucose 83 Calcium 8.8 Troponin I < 0.015 B-Natriuretic Peptide 1251.5 H 01/07/18 05:14 WBC RBC Hgb Hct MCV MCH MCHC RDW RDW Differential Plt Count MPV Immature Gran % (Auto) Neut % (Auto) Lymph % (Auto) [place] % (Auto) Eos % (Auto) Baso % (Auto) Absolute Neuts (auto) Absolute Lymphs (auto) Total Counted Differential Comment Platelet Estimate Polychromasia Hypochromasia Anisocytosis Microcytosis Stomatocytes Sodium 146 H Potassium 3.7 Chloride 101 Carbon Dioxide 38.0 H Anion Gap 7 BUN 29 H Creatinine 1.44 H Estim Creat Clear Calc 43.43 Est GFR (MDRD) Af Amer 49 L Est GFR (MDRD) Non-Af 40 L BUN/Creatinine Ratio 20.1 H Glucose 103 Calcium 8.9 Troponin I B-Natriuretic Peptide Assessment/Plan All Active Problems CHF exacerbation (Acute) Acute kidney failure (Acute) Bacteremia due to Streptococcus (Resolved) Pulmonary embolus (Resolved) Viridans streptococci infection (Resolved) 1. Acute on chronic diastolic CHF-BNP 1251. Chest x-ray without evidence of CHF. Echocardiogram 06/2017 EF 75%, stage 1 diastolic dysfunction, mild tricuspid valve insufficiency, RVSP 56mmhg. IV lasix. Strict I&O. Daily weight. Ras wrap bilateral lower extremities. Continue supplement oxygen to maintain O2 above 90%. 2. Mild hypokalemia-replace per protocol. Trend BMP. 3. ANIL on CKD stage III- Hold IVF given #1. Trend BMP. 4. Chronic COPD/obstructive sleep apnea/pulmonary hypertension with chronic hypoxic respiratory failure-albuterol and DuoNeb aerosols. Continue supplement oxygen to maintain O2 sat above 90%. Patient's oxygen stable on lower requirements then patient wears at baseline. Continue CPAP nightly. 5. History of PE-continue Eliquis. 6. Hypertension-stable, continue home losartan, metoprolol regimen. 7. Tobacco dependence-current pack and half per day smoker. Encouraged tobacco cessation. 8. Bilateral lower extremity lymphedema-Ras wraps bilateral lower extremities. Do note feel patient has cellulitis. Chronic skin changes BLLE. Eucerin and ras wraps. 9. Super morbid obesity-encouraged diet and lifestyle modifications. 10. Depression/anxiety-continue home venlafaxine/buspirone regimen. 11. Hypothyroidism-continue Synthroid regimen. DVT prophylaxis- Eliquis This patient was seen by CHERYL Lane under the supervision of Dr. Kiran.
[2018-01-07] MEDS: Aspirin 81 MG TAB.CHEW PO (09:01)
[2018-01-07] MEDS: busPIRone 15 MG TABLET 7.5 MG PO (09:02)
[2018-01-07] MEDS: Folic Acid 1 MG Tablet PO (09:02)
[2018-01-07] MEDS: Oxybutynin 5 MG Tablet PO (09:04)
[2018-01-07] MEDS: Losartan Potassium 50 MG Tablet PO (09:04)
[2018-01-07] MEDS: APIXABAN 5 MG TABLET PO (09:05)
[2018-01-07] MEDS: Venlafaxine XR 150 MG Capsule PO (09:05)
[2018-01-07] MEDS: Metoprolol Tartrate 25 MG Tablet PO (09:07)
[2018-01-07] MEDS: Gabapentin 300 MG Capsule PO (09:13)
--- NOTE | 2018-01-07 10:39 | DCINST_ITS ---
- Discharge Diagnoses Current Active Problems: Current Active and Chronic Problems Acute on chronic diastolic CHF COPD (chronic obstructive pulmonary disease) (Chronic) Hypothyroidism (Chronic) Lymphedema (Chronic) Hypertension (Chronic) CKD (chronic kidney disease) stage 3, GFR 30-59 ml/min (Chronic) You will use the following diet at home:: Calorie/Carbohydrate Controlled (specify 1200, 1400, etc), Cardiac Discharge Activity: Return to Normal Activity Call your doctor if you observe: Shortness of breath, Dizziness, Fainting spells, Chest pain Allergies/Adverse Reactions: Allergies aspirin [From Percodan] Allergy (Verified 01/06/18 14:57) Hives oxycodone HCl [From Percodan] Allergy (Verified 06/13/17 16:36) Hives oxycodone terephthalate [From Percodan] Allergy (Verified 06/13/17 16:36) Hives Sulfa (Sulfonamide Antibiotics) Allergy (Verified 06/13/17 16:36) Hives cefuroxime Adverse Reaction (Verified 06/13/17 16:36) Unknown Cephalosporins Adverse Reaction (Verified 06/13/17 16:36) Vomiting meperidine HCl [From Demerol] Adverse Reaction (Verified 06/13/17 16:36) Vomiting NSAIDS (Non-Steroidal Anti-Inflamma Adverse Reaction (Verified 06/13/17 16:36) Unknown oxycodone [Oxycodone] Adverse Reaction (Verified 06/13/17 16:36) Rash Medications to take at Discharge Acetaminophen 500 mg PO Q6H PRN 11/28/16 Albuterol Inhaler [Ventolin Hfa] 1 - 2 puff INHALATION Q4H PRN PRN 11/28/16 Buspirone HCl 7.5 mg PO BID 11/28/16 Cholecalciferol (Vitamin D3) [Vitamin D3] 50,000 unit PO QWEEK 11/28/16 Docusate Sodium [Stool Softener] 100 mg PO BID PRN PRN 11/28/16 Folic Acid 1 mg PO DAILY 11/28/16 Gabapentin [Neurontin] 300 mg PO BIDCM 11/28/16 Levothyroxine [Synthroid] 25 mcg PO DAILY 11/28/16 Oxybutynin [Ditropan] 5 mg PO DAILY 11/28/16 Venlafaxine HCl [Venlafaxine HCl ER] 150 mg PO DAILY 11/28/16 Hydroxyzine HCl 10 mg PO TID 06/13/17 Multivitamin with Iron [Tab-A-Jessica with Iron] 1 each PO DAILY 06/13/17 Apixaban [Eliquis] 5 mg PO 0800,1999 #60 tab 06/18/17 Aspirin [Aspirin, Baby] 81 mg PO DAILY@0800 #30 tab.chew 06/18/17 Bumetanide [Bumex] 2 mg PO BID #60 tab 06/18/17 Losartan Potassium [Cozaar] 50 mg PO DAILY #30 tab 06/18/17 Metoprolol Tartrate [Lopressor (beta vineet)] 25 mg PO BID #60 tab 06/18/17 Atorvastatin Calcium [Lipitor] 40 mg PO QHS 01/07/18 Primary Care Physician: Brian Thao MD [Primary Care Provider] - Please follow up with your Primary Care Physician in: 1 Week Test Results: Test results from this visit will be discussed in further detail at your follow- up appointment, if applicable. Proposed Discharge Date: 01/07/18
--- NOTE | 2018-01-07 10:45 | DS.PCM_ITS ---
<Jennyfer Kimball - Last Filed: 01/07/18 10:49> Discharge Date and Diagnosis Date of Admission: 01/06/18 Date of Discharge: 01/07/18 - Primary Discharge Diagnosis 1. Acute on chronic diastolic CHF 2. Mild hypokalemia, resolved 3. Acute kidney injury on chronic kidney disease stage III 4. Chronic COPD/obstructive sleep apnea/pulmonary hypertension with chronic hypoxic respiratory failure 5. History of PE 6. Hypertension 7. Tobacco dependence 8. Bilateral lower extremity lymphedema with stasis dermatitis 9. Super morbid obesity 10. Depression/anxiety 11. Hypothyroidism - Secondary Discharge Diagnosis Chronic Problems COPD (chronic obstructive pulmonary disease) (Chronic) Hypothyroidism (Chronic) Lymphedema (Chronic) Hypertension (Chronic) CKD (chronic kidney disease) stage 3, GFR 30-59 ml/min (Chronic) Morbid obesity with BMI of 60.0-69.9, adult (Chronic) Transaminitis (Chronic) Hospital Course and Treatment Imaging Results: Diagnostic Data Chest X-Ray 01/06/18 15:35 IMPRESSION: Stable prominence of the pulmonary arteries may reflect underlying pulmonary artery hypertension. Electronically Signed: Cintia Villafuerte MD at 16:26 EST Tel , Service support , Operations: None Procedures: None Summary of Care Provided: The patient is a 52 year old F admitted 01/06/2018 due to shortness of breath. 1. Acute on chronic diastolic CHF-BNP 1251. Chest x-ray without evidence of CHF. Echocardiogram 06/2017 EF 75%, stage 1 diastolic dysfunction, mild tricuspid valve insufficiency, RVSP 56mmhg. Patient received IV lasix with quick improvement in shortness of breath and significant urine output. Ras wrap bilateral lower extremities. Continue supplement oxygen to maintain O2 above 90%. Patient will resume home Bumex regimen at discharge. Follow-up with primary care physician in 1 week. 2. Mild hypokalemia-replace per protocol. Resolved. 3. ANIL on CKD stage III-improved. 4. Chronic COPD/obstructive sleep apnea/pulmonary hypertension with chronic hypoxic respiratory failure-Continue supplement oxygen to maintain O2 sat above 90%. Patient's oxygen stable baseline chronic O2 requirements. Continue CPAP nightly. 5. History of PE-continue Eliquis. 6. Hypertension-stable, continue home losartan, metoprolol regimen. 7. Tobacco dependence-current pack and half per day smoker. Strongly encouraged tobacco cessation. 8. Bilateral lower extremity lymphedema-Ras wraps bilateral lower extremities. Do note feel patient has cellulitis. Chronic skin changes BLLE. Eucerin and ras wraps. 9. Super morbid obesity-encouraged diet and lifestyle modifications. 10. Depression/anxiety-continue home venlafaxine/buspirone regimen. 11. Hypothyroidism-continue Synthroid regimen. General: Alert, Oriented x3, Cooperative HEENT: Atraumatic, PERRLA, EOMI, Normocephalic Oral: Moist Mucosa Neck: Supple, No JVD, Negative Carotid Bruits Lungs: Clear to auscultation, Diminished Cardiovascular: Regular rate, Regular Rhythm, Normal S1, Normal S2, No murmurs Abdomen: Bowel Sounds Present, Soft, Non Tender, Non-Distended, Obese Extremities: No clubbing, No cyanosis, Edema - Chronic lymphedema bilateral lower extremities. Skin: No rashes, No breakdown, Chronic skin changes bilateral lower extremities, stasis dermatitis bilateral lower extremities. Abrasions right posterior lower extremity, no evidence of infection. Musculoskeletal: No Tenderness to Palpation of Joints or Extremities Neurological: Cranial nerves II-XII grossly intact, Neuro grossly intact Psych/Mental Status: Normal affect Patient seen and examined prior to discharge. Physical assessment as noted above. Patient is stable for discharge home with a follow-up of her conditions as noted above. This patient was seen by CHERYL Lane under the supervision of Dr. Guo. - Physical Exam Vital Signs Temp Pulse Resp BP Pulse Ox 96.6 F L 89 16 122/83 H 90 01/07/18 08:21 01/07/18 09:07 01/07/18 06:50 01/07/18 09:07 01/07/18 08:21 Oxygen Flow Rate (L/min) 6 Oxygen Delivery Method Warm Humidified Isolette Weight: 328 lb 7.82 oz Body Mass Index (BMI) 52.1 Intake and Output for Last 24 Hours 01/05/18 01/06/18 01/07/18 23:59 23:59 23:59 Intake Total 220 / 220 150 / 150 Output Total 1650 / 1650 2550 / 2550 Balance -1430 / -1430 -2400 / -2400 Laboratory Tests Past 24 Hrs 01/06/18 01/06/18 01/06/18 15:13 15:13 15:13 WBC 6.0 RBC 7.36 H Hgb 14.4 Hct 53.6 H MCV 72.8 L MCH 19.6 L MCHC 26.9 L RDW 24.0 H RDW Differential 62.7 H Plt Count 273 MPV TNP Immature Gran % (Auto) 0.200 Neut % (Auto) 62.1 Lymph % (Auto) 21.6 [place] % (Auto) 12.8 H Eos % (Auto) 2.3 Baso % (Auto) 1.0 Absolute Neuts (auto) 3.8 Absolute Lymphs (auto) 1.30 Total Counted Not Reportable Differential Comment SCANNED Platelet Estimate ADEQUATE Polychromasia 1+ Hypochromasia 2+ Anisocytosis 4+ Microcytosis 1+ Stomatocytes RARE Sodium 142 Potassium 3.3 L Chloride 98 Carbon Dioxide 39.0 H Anion Gap 5 BUN 34 H Creatinine 1.81 H Estim Creat Clear Calc 33.26 Est GFR (MDRD) Af Amer 37 L Est GFR (MDRD) Non-Af 31 L BUN/Creatinine Ratio 18.8 Glucose 83 Calcium 8.8 Troponin I < 0.015 B-Natriuretic Peptide 1251.5 H 01/07/18 05:14 WBC RBC Hgb Hct MCV MCH MCHC RDW RDW Differential Plt Count MPV Immature Gran % (Auto) Neut % (Auto) Lymph % (Auto) [place] % (Auto) Eos % (Auto) Baso % (Auto) Absolute Neuts (auto) Absolute Lymphs (auto) Total Counted Differential Comment Platelet Estimate Polychromasia Hypochromasia Anisocytosis Microcytosis Stomatocytes Sodium 146 H Potassium 3.7 Chloride 101 Carbon Dioxide 38.0 H Anion Gap 7 BUN 29 H Creatinine 1.44 H Estim Creat Clear Calc 43.43 Est GFR (MDRD) Af Amer 49 L Est GFR (MDRD) Non-Af 40 L BUN/Creatinine Ratio 20.1 H Glucose 103 Calcium 8.9 Troponin I B-Natriuretic Peptide Discharge Diet: Low fat/ Low Cholesterol, 1800 Calorie Control Diet, Carb Control Diet Discharge Activity: Return to Normal Activity Call your doctor if you observe: Shortness of breath, Dizziness, Fainting spells, Chest pain Home Medications: Medications to take at Discharge Acetaminophen 500 mg PO Q6H PRN 11/28/16 Albuterol Inhaler [Ventolin Hfa] 1 - 2 puff INHALATION Q4H PRN PRN 11/28/16 Buspirone HCl 7.5 mg PO BID 11/28/16 Cholecalciferol (Vitamin D3) [Vitamin D3] 50,000 unit PO QWEEK 11/28/16 Docusate Sodium [Stool Softener] 100 mg PO BID PRN PRN 11/28/16 Folic Acid 1 mg PO DAILY 11/28/16 Gabapentin [Neurontin] 300 mg PO BIDCM 11/28/16 Levothyroxine [Synthroid] 25 mcg PO DAILY 11/28/16 Oxybutynin [Ditropan] 5 mg PO DAILY 11/28/16 Venlafaxine HCl [Venlafaxine HCl ER] 150 mg PO DAILY 11/28/16 Hydroxyzine HCl 10 mg PO TID 06/13/17 Multivitamin with Iron [Tab-A-Jessica with Iron] 1 each PO DAILY 06/13/17 Apixaban [Eliquis] 5 mg PO 0800,1999 #60 tab 06/18/17 Aspirin [Aspirin, Baby] 81 mg PO DAILY@0800 #30 tab.chew 06/18/17 Bumetanide [Bumex] 2 mg PO BID #60 tab 06/18/17 Losartan Potassium [Cozaar] 50 mg PO DAILY #30 tab 06/18/17 Metoprolol Tartrate [Lopressor (beta vineet)] 25 mg PO BID #60 tab 06/18/17 Atorvastatin Calcium [Lipitor] 40 mg PO QHS 01/07/18 Primary Care Physician: Brian Thao MD [Primary Care Provider] - Please follow up with your Primary Care Physician in: 1 Week Disposition: Home Minutes spent on discharge:: 35 Patient Condition:: Stable Medical Necessity - Tobacco Use Smoking Status: Current every day smoker - 1.5 PPD Tobacco Use: Cigarettes Meaningful Use Info Meaningful Use Diagnoses (Choose all that apply): CHF - CHF RAS/ARB ordered at discharge?: Yes Documented LVEF (%): 75 <Anders Guo - Last Filed: 01/07/18 12:36> Discharge Date and Diagnosis - Secondary Discharge Diagnosis Chronic Problems COPD (chronic obstructive pulmonary disease) (Chronic) Hypothyroidism (Chronic) Lymphedema (Chronic) Hypertension (Chronic) CKD (chronic kidney disease) stage 3, GFR 30-59 ml/min (Chronic) Morbid obesity with BMI of 60.0-69.9, adult (Chronic) Transaminitis (Chronic) Hospital Course and Treatment Summary of Care Provided: This patient was seen in conjunction with CHERYL Lane . I have independently interviewed and examined the patient and reviewed pertinent historical, laboratory, and other data. Please refer to CHERYL Lane note for details of this patient's presentation, findings, and recommendations. I have reviewed CHERYL Lane note and concur with documented findings. In brief, patient is a 2-year-old lady with history of chronic hypoxic respiratory failure secondary to CHF, morbid obesity with BMI of 51.4 who presented with progressive shortness of breath and assessment of acute congestive heart failure made admitted to monitored bed for subsequent management. Patient was managed with Lasix with significant improvement. She did request a day after her admission Hospital course: As elicited by Jennyfer Kimball [employer] - Physical Exam Vital Signs Temp Pulse Resp BP Pulse Ox 98.1 F 73 17 109/64 92 01/07/18 11:47 01/07/18 11:47 01/07/18 11:47 01/07/18 11:47 01/07/18 11:47 Oxygen Flow Rate (L/min) 6 Oxygen Delivery Method Nasal Cannula Weight: 149 kg Body Mass Index (BMI) 52.1 Intake and Output for Last 24 Hours 01/05/18 01/06/18 01/07/18 23:59 23:59 23:59 Intake Total 220 / 220 270 / 270 Output Total 1650 / 1650 3950 / 3950 Balance -1430 / -1430 -3680 / -3680 Laboratory Tests Past 24 Hrs 01/06/18 01/06/18 01/06/18 15:13 15:13 15:13 WBC 6.0 RBC 7.36 H Hgb 14.4 Hct 53.6 H MCV 72.8 L MCH 19.6 L MCHC 26.9 L RDW 24.0 H RDW Differential 62.7 H Plt Count 273 MPV TNP Immature Gran % (Auto) 0.200 Neut % (Auto) 62.1 Lymph % (Auto) 21.6 [place] % (Auto) 12.8 H Eos % (Auto) 2.3 Baso % (Auto) 1.0 Absolute Neuts (auto) 3.8 Absolute Lymphs (auto) 1.30 Total Counted Not Reportable Differential Comment SCANNED Platelet Estimate ADEQUATE Polychromasia 1+ Hypochromasia 2+ Anisocytosis 4+ Microcytosis 1+ Stomatocytes RARE Sodium 142 Potassium 3.3 L Chloride 98 Carbon Dioxide 39.0 H Anion Gap 5 BUN 34 H Creatinine 1.81 H Estim Creat Clear Calc 33.26 Est GFR (MDRD) Af Amer 37 L Est GFR (MDRD) Non-Af 31 L BUN/Creatinine Ratio 18.8 Glucose 83 Calcium 8.8 Troponin I < 0.015 B-Natriuretic Peptide 1251.5 H 01/07/18 05:14 WBC RBC Hgb Hct MCV MCH MCHC RDW RDW Differential Plt Count MPV Immature Gran % (Auto) Neut % (Auto) Lymph % (Auto) [place] % (Auto) Eos % (Auto) Baso % (Auto) Absolute Neuts (auto) Absolute Lymphs (auto) Total Counted Differential Comment Platelet Estimate Polychromasia Hypochromasia Anisocytosis Microcytosis Stomatocytes Sodium 146 H Potassium 3.7 Chloride 101 Carbon Dioxide 38.0 H Anion Gap 7 BUN 29 H Creatinine 1.44 H Estim Creat Clear Calc 43.43 Est GFR (MDRD) Af Amer 49 L Est GFR (MDRD) Non-Af 40 L BUN/Creatinine Ratio 20.1 H Glucose 103 Calcium 8.9 Troponin I B-Natriuretic Peptide Code Visit OBSV E&M: 18217 Observation care discharge
--- NOTE | 2018-01-07 14:32 | NURSING ---
Upon completing discharge and discussing patient's plan for transportation patient communicated to this RN that she does not have a protable O2 tank. The company she uses ([employer]) is not available on weekends. Transport via squad will be arranged.
== END 2018-01-07 10:39 | disposition home or self-care (01) ==
LOC: ED 15:13 → PCU 18:01
PROVIDERS: Admitting Provider Internal Medicine; Emergency Provider Emergency Medicine; Family Provider Internal Medicine; PCP Internal Medicine; Visit Provider Internal Medicine
DX: I13.0 Hypertensive heart and chronic kidney disease with heart failure and stage 1 through stage 4 chronic kidney disease, or unspecified chronic kidney disease (principal); I50.33 Acute on chronic diastolic (congestive) heart failure; N18.3 Chronic kidney disease, stage 3 (moderate); Z86.711 Personal history of pulmonary embolism; E66.01 Morbid (severe) obesity due to excess calories; Z68.43 Body mass index [BMI] 50.0-59.9, adult; Z71.3 Dietary counseling and surveillance; E03.9 Hypothyroidism, unspecified; J44.9 Chronic obstructive pulmonary disease, unspecified; G47.33 Obstructive sleep apnea (adult) (pediatric); J96.11 Chronic respiratory failure with hypoxia; I27.20 Pulmonary hypertension, unspecified; N17.9 Acute kidney failure, unspecified; F41.9 Anxiety disorder, unspecified; F32.9 Major depressive disorder, single episode, unspecified; Z79.899 Other long term (current) drug therapy; Z79.82 Long term (current) use of aspirin; Z79.01 Long term (current) use of anticoagulants; E87.6 Hypokalemia; Z99.81 Dependence on supplemental oxygen; F17.210 Nicotine dependence, cigarettes, uncomplicated; I89.0 Lymphedema, not elsewhere classified
CPT/HCPCS: 36415; 51702; 71045; 80048; 83880; 84484; 85025; 93005; 94640; 96365; 96366; 96375; 96376; 99218; 99285; 99406; A4216; G0378; J1940

== ENCOUNTER 2018-03-17 16:14 | Inpatient (IN) | payer MEDICAID, SELFPAY ==
[2018-01-06 18:22] VITALS: BMI 52.1
[2018-03-17] VITALS (13 sets, daily range): BP systolic 125–143; BP diastolic 65–113; PULSE 68–101; RESP 15–22; TEMP 36.6–36.8; O2SAT 91–98; BMI 60.3; BMI 58.5; BMI 60.4
--- NOTE | 2018-03-17 16:45 | EKG12_ITS ---
Test Reason : SOB Blood Pressure : / mmHG Vent. Rate : 071 BPM Atrial Rate : 071 BPM P-R Int : 174 ms QRS Dur : 150 ms QT Int : 454 ms P-R-T Axes : 035 136 -20 degrees QTc Int : 493 ms Normal sinus rhythm Right bundle branch block Septal infarct , age undetermined T wave abnormality, consider inferior ischemia Abnormal ECG Confirmed by JM BONILLA, BRODY ([id number]), web content editor YAMILKA HEIN ([id number]) on 03/21/2018 1:33:16 PM Referred By: IVANA Confirmed By:BRODY ONEAL MD
--- NOTE | 2018-03-17 16:50 | RAD_ITS ---
STUDY: X-RAY CHEST REASON FOR EXAM: Female, 52 years old. Chest pain with shortness of breath TECHNIQUE: Single AP portable view of the chest. 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 The lungs are clear and expanded. There is no demonstrated pleural abnormality. There is moderate cardiac enlargement. Normal mediastinum and randolph. Prominence of the pulmonary arteries is again noted. Normal visualized aortic arch and descending thoracic aorta. Normal visualized thoracic spine. Normal visualized ribs, clavicles, and shoulders. There is no demonstrated abnormality of the visualized soft tissue structures of the upper abdomen. RAD/Chest 1 View (Portable) IMPRESSION: Moderate cardiomegaly. Prominence of the pulmonary arteries. No acute cardiopulmonary disease process is seen. Chest findings are stable in the interval. Electronically Signed: Tristan Sheets MD at 18:36 EST , Service support ,
[2018-03-17] MEDS: Furosemide 40 MG/4 ML Vial IV (17:15)
[2018-03-17] MEDS: Ipratropium/Albuterol Sulfate 3 ML AMPUL.NEB INHALATION ×2 (17:24→23:30)
[2018-03-17 18:00] LABS: Absolute Lymphocyte Count 1.45 X10^3/ul (0.83-4.51); Absolute Neutrophil Count 5.9 X10^3/uL (2.0-7.7); Basophil# 0.06 X10^3/uL; Basophil% 0.7 % (0-1); Eosinophils% 2.5 % (0-5); Hemoglobin 15.2 g/dl (12.0-15.0); Lymphocyte # 1.45 X10^3/ul (4.0); Mean Corp Hgb Conc 27.3 g/gl (32-36); Mean Corpuscular Hgb 20.1 pg (27.0-32.0); Mean Corpuscular Volume 73.7 fL (81-99); Monocyte% 6.2 % (0-10); Neutrophil # 5.85 X10^3/uL (2.7-7.7); Neutrophil % 72.5 % (47-70); Platelet Count 229 K/mm3 (150-450); RBC Distribution Width CV 23.5 % (11.6-14.6); RBC Distribution Width SD 60.5 fl (35.1-43.9); White Blood Count 8.1 K/mm3 (4.4-11.0)
[2018-03-17 18:07] LABS: Anion Gap 6 (5-15); BUN 46 mg/dL (7-18); BUN/Creat Ratio 28.9 RATIO (10-20); Calcium,Total 7.4 mg/dL (8.5-10.1); Chloride 101 mmol/L (98-107); Creatinine, Serum 1.59 mg/dL (0.55-1.02); Differential Indicated SCAN CRITERIA MET; EST Glomerular Filtration Rate 36 mL/min (>60); Est Glom Filt Rate - Afr Amer 43 mL/min (>60); Estimated Creatinine Clearance 37.87 ml/min; Glucose 78 mg/dL (74-106); Hematocrit 55.7 % (37-47); POSITIVE COUNT NO; POSITIVE DIFFERENTIAL NO; POSITIVE MORPHOLOGY YES; Potassium 6.8 mmol/L (3.5-5.1); Red Blood Count 7.56 M/mm3 (4.2-5.4); Sodium Level 139 mmol/L (136-145)
--- NOTE | 2018-03-17 18:08 | ED.RN ---
LAB CALLED WITH K+6.8, DR. HEATH INFORMED OF SAME, NO NEW ORDERS AT THIS TIME.
[2018-03-17 18:17] LABS: Anisocytosis 3+; Differential Comment SCANNED; Hypochromasia 1+; Macrocytosis 1+; Microcytosis 1+; Ovalocyte 1+; Platelet Estimate ADEQUATE (ADEQ); Platelet Morphology LARGE; Poikilocytosis 2+; Polychromasia 1+; Tear Drop Cell 1+
[2018-03-17 18:49] LABS: Potassium 5.3 mmol/L (3.5-5.1)
--- NOTE | 2018-03-17 20:03 | HP.PCM_ITS ---
History of Present Illness Date of Admission: 03/17/18 Chief Complaint: shortness of breath The patient is a 52 year old F with past medical history which includes diastolic heart failure, hypertension, history of PE, COPD on chronic hypoxic respiratory failure on 5-6 L of oxygen at home. She was admitted through the ED with a complaint of shortness of breath which have been going on for about 1-1/2 weeks. Shortness of breath persisted even though she was on her oxygen. She had an assisted cough which is productive of greenish sputum. She denied any fever or chills but admitted to mild wheezing. She continues to smoke throughout. She denied any chest pain, palpitations or dizziness or lightheaded ness, abdominal pain, diarrhea or vomiting. Symptoms did not improve. She started having assisted sore throat about 2 days ago. He denies any contact with anyone who had upper respiratory symptoms. She did have a flu shot this season because he does not believe in the flu shot and never takes it. She decided to come into the ED today since shortness of breath was persistent. She had also noticed distention of her abdomen and worsening pedal edema. In the ED, she was breathing at 16, saturating at 91% on 6 L of oxygen. However with ambulation, her saturation dropped to the 80s. Initial troponin was 6.8 but was hemolyzed and came down to 5.3 on repeat. BNP was 952 and initial troponin was negative. CBC showed hemoglobin of 15.2 and was otherwise unremarkable. Chest x-ray showed moderate cardiomegaly with prominence of the pulmonary arteries and clear and expanded lungs. EKG showed right bundle branch block and T wave inversions in the inferior leads which was similar to previous EKGs checked in the EMR. She is been admitted to be managed for acute on chronic hypoxic respiratory failure likely due to upper respiratory tract infection and diastolic CHF exacerbation. [] Past Medical History Past Medical History (Chronic Problems): Chronic Problems COPD (chronic obstructive pulmonary disease) (Chronic) Hypothyroidism (Chronic) Lymphedema (Chronic) Hypertension (Chronic) CKD (chronic kidney disease) stage 3, GFR 30-59 ml/min (Chronic) Morbid obesity with BMI of 60.0-69.9, adult (Chronic) Transaminitis (Chronic) Allergies aspirin [From Percodan] Allergy (Verified 03/17/18 16:24) Hives oxycodone HCl [From Percodan] Allergy (Verified 03/17/18 16:24) Hives oxycodone terephthalate [From Percodan] Allergy (Verified 03/17/18 16:24) Hives Sulfa (Sulfonamide Antibiotics) Allergy (Verified 03/17/18 16:24) Hives cefuroxime Adverse Reaction (Verified 03/17/18 16:24) Unknown Cephalosporins Adverse Reaction (Verified 03/17/18 16:24) Vomiting meperidine HCl [From Demerol] Adverse Reaction (Verified 03/17/18 16:24) Vomiting NSAIDS (Non-Steroidal Anti-Inflamma Adverse Reaction (Verified 03/17/18 16:24) Unknown oxycodone [Oxycodone] Adverse Reaction (Verified 03/17/18 16:24) Rash Home Medications: Ambulatory Orders Medication Instructions Recorded Acetaminophen 500 mg PO Q6H PRN 11/28/16 Albuterol Inhaler [Ventolin Hfa] 1 - 2 puff INHALATION Q4H PRN PRN 11/28/16 Buspirone HCl 7.5 mg PO BID 11/28/16 Cholecalciferol (Vitamin D3) 50,000 unit PO QWEEK 11/28/16 [Vitamin D3] Docusate Sodium [Stool Softener] 100 mg PO BID PRN PRN 11/28/16 Folic Acid 1 mg PO DAILY 11/28/16 Gabapentin [Neurontin] 300 mg PO BIDCM 11/28/16 Levothyroxine [Synthroid] 25 mcg PO DAILY 11/28/16 Oxybutynin [Ditropan] 5 mg PO DAILY 11/28/16 Venlafaxine HCl [Venlafaxine HCl 150 mg PO DAILY 11/28/16 ER] Hydroxyzine HCl 10 mg PO TID 06/13/17 Multivitamin with Iron [Tab-A-Jessica 1 each PO DAILY 06/13/17 with Iron] Apixaban [Eliquis] 5 mg PO 0800,1999 #60 tab 06/18/17 Aspirin [Aspirin, Baby] 81 mg PO DAILY@0800 #30 tab.chew 06/18/17 Bumetanide [Bumex] 2 mg PO BID #60 tab 06/18/17 Losartan Potassium [Cozaar] 50 mg PO DAILY #30 tab 06/18/17 Metoprolol Tartrate [Lopressor 25 mg PO BID #60 tab 06/18/17 (beta vineet)] Atorvastatin Calcium [Lipitor] 40 mg PO QHS 01/07/18 Surgical History: cholecystectomy, - - 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 Maternal History Items: - - Denies known cardiac history. Review of Systems Constitutional: Denies: Chills, Fever, Malaise, Weakness, Weight Change Eyes: Denies: Blurred vision HEENT: Denies: Head Aches, Sinus Congestion, Sinus Drainage Cardiovascular: Reports: Edema - edema of abdominal wall and lower extremities. Denies: Chest Pain, Chest Pressure, Chest Tightness, Heaviness, Orthopnea, Palpitations, Paroxysmal Noc. Dyspnea Respiratory: Reports: Cough, Shortness of Breath, Shortness of breath at rest, Shortness of breath upon exertion, Sputum production, Wheezing. Denies: Pleuritic Pain Gastrointestinal: Denies: Abdominal Pain, Nausea, Vomiting Genitourinary: Denies: Dysuria Musculoskeletal: Denies: Joint Pain, Joint Tenderness Skin: Denies: Rash, Wounds Neurological: Denies: Numbness, Tingling, Focal weakness Psychiatric: Denies: Anxiety, Depression, Homicidal Ideations, Suicidal Ideations Hematologic/ Lymphatic: Denies: Easy Bruising, Easy Bleeding VTE Information - Inpt Only VTE Present on Admission: No VTE Pharm Prophylaxis ordered?: Yes - Physical Exam General: Alert, Oriented x3, Cooperative, - - in mild respiratory distress HEENT: Atraumatic, PERRLA, EOMI, Normocephalic Oral: Dry Mucosa Neck: Supple, No JVD, Negative Carotid Bruits Lungs: - - diminished breath sounds bibasally, with few crackles in lung bases. on 6L of oxygen by nasal canula Cardiovascular: Regular rate, Regular Rhythm, Normal S1, Normal S2, No murmurs Abdomen: Bowel Sounds Present, Soft, Obese - morbidly obese abdomen, with abdominal wall edema Extremities: No clubbing, No cyanosis, - - bilateral 1+ pitting pedal edema; mild erythema of both LEs with cyanotic hue Skin: No rashes, No breakdown Musculoskeletal: No Tenderness to Palpation of Joints or Extremities Lymphatic: No Cervical, Supraclavicular, or Inguinal Adenopathy Neurological: Cranial nerves II-XII grossly intact Psych/Mental Status: Normal Affect, Appropriate, Alert and oriented to time, place, person, mood and affect Vital Signs Temp Pulse Resp BP Pulse Ox 98.2 F 92 15 137/82 H 97 03/17/18 19:17 03/17/18 19:17 03/17/18 19:17 03/17/18 19:17 03/17/18 19:17 Oxygen Flow Rate (L/min) 6 Oxygen Delivery Method Nasal Cannula Weight: 374 lb 1.991 oz Body Mass Index (BMI) 60.3 Laboratory Tests Past 24 Hrs 03/17/18 03/17/18 03/17/18 16:28 16:28 16:28 WBC Cancelled Corrected WBC Cancelled RBC Cancelled Hgb Cancelled Hct Cancelled MCV Cancelled MCH Cancelled MCHC Cancelled RDW Cancelled RDW Differential Cancelled Plt Count Cancelled MPV Cancelled Immature Gran % (Auto) Cancelled Neut % (Auto) Cancelled Lymph % (Auto) Cancelled Terrell % (Auto) Cancelled Eos % (Auto) Cancelled Baso % (Auto) Cancelled Immature Gran # (Auto) Cancelled Absolute Neuts (auto) Cancelled Absolute Lymphs (auto) Cancelled Absolute Monos (auto) Cancelled Total Counted Cancelled Neutrophils % (Manual) Cancelled Band Neutrophils % Cancelled Lymphocytes % (Manual) Cancelled Monocytes % (Manual) Cancelled Eosinophils % (Manual) Cancelled Basophils % (Manual) Cancelled Metamyelocytes % Cancelled Myelocytes % Cancelled Promyelocytes % Cancelled Blast Cells % Cancelled Plasma Cell % (Manual) Cancelled Other Cells % Cancelled Lymphocytes # Cancelled Nucleated RBCs/100 WBC Cancelled Differential Comment Cancelled Diff Path Review Cancelled Hypersegmented Neuts Cancelled Atypical Lymphocytes Cancelled Reactive Lymphocytes Cancelled Smudge Cells Cancelled Eosinophilia # Cancelled Basophilia # Cancelled Toxic Granulation Cancelled Dohle Bodies Cancelled Stan Rods Cancelled Platelet Estimate Cancelled Plt Morphology Comment Cancelled RBC Morphology Cancelled Polychromasia Cancelled Hypochromasia Cancelled Poikilocytosis Cancelled Basophilic Stippling Cancelled Anisocytosis Cancelled Microcytosis Cancelled Macrocytosis Cancelled Spherocytes Cancelled Sickle Cells Cancelled Target Cells Cancelled Tear Drop Cells Cancelled Ovalocytes Cancelled Stomatocytes Cancelled [place] Bodies Cancelled Cynthia Cells Cancelled Bite Cells Cancelled Acanthocytes (Spur) Cancelled Rouleaux Cancelled Schistocytes Cancelled Sodium Cancelled Potassium Cancelled Chloride Cancelled Carbon Dioxide Cancelled Anion Gap Cancelled BUN Cancelled Creatinine Cancelled Estim Creat Clear Calc Cancelled Est GFR (MDRD) Af Amer Cancelled Est GFR (MDRD) Non-Af Cancelled BUN/Creatinine Ratio Cancelled Glucose Cancelled Calcium Cancelled Troponin I Cancelled B-Natriuretic Peptide Cancelled 03/17/18 03/17/18 03/17/18 17:35 17:35 17:35 WBC 8.1 Corrected WBC RBC 7.56 H Hgb 15.2 H Hct 55.7 H MCV 73.7 L MCH 20.1 L MCHC 27.3 L RDW 23.5 H RDW Differential 60.5 H Plt Count 229 MPV Immature Gran % (Auto) 0.100 Neut % (Auto) 72.5 H Lymph % (Auto) 18.0 L Terrell % (Auto) 6.2 Eos % (Auto) 2.5 Baso % (Auto) 0.7 Immature Gran # (Auto) Absolute Neuts (auto) 5.9 Absolute Lymphs (auto) 1.45 Absolute Monos (auto) Total Counted Not Reportable Neutrophils % (Manual) Band Neutrophils % Lymphocytes % (Manual) Monocytes % (Manual) Eosinophils % (Manual) Basophils % (Manual) Metamyelocytes % Myelocytes % Promyelocytes % Blast Cells % Plasma Cell % (Manual) Other Cells % Lymphocytes # Nucleated RBCs/100 WBC Differential Comment SCANNED Diff Path Review Hypersegmented Neuts Atypical Lymphocytes Reactive Lymphocytes Smudge Cells Eosinophilia # Basophilia # Toxic Granulation Dohle Bodies Stan Rods Platelet Estimate ADEQUATE Plt Morphology Comment LARGE RBC Morphology Polychromasia 1+ Hypochromasia 1+ Poikilocytosis 2+ Basophilic Stippling Anisocytosis 3+ Microcytosis 1+ Macrocytosis 1+ Spherocytes Sickle Cells Target Cells Tear Drop Cells 1+ Ovalocytes 1+ Stomatocytes [place] Bodies Cynthia Cells Bite Cells Acanthocytes (Spur) Rouleaux Schistocytes Sodium 139 Potassium 6.8 H* Chloride 101 Carbon Dioxide 32.0 Anion Gap 6 BUN 46 H Creatinine 1.59 H Estim Creat Clear Calc 37.87 Est GFR (MDRD) Af Amer 43 L Est GFR (MDRD) Non-Af 36 L BUN/Creatinine Ratio 28.9 H Glucose 78 Calcium 7.4 L Troponin I < 0.015 B-Natriuretic Peptide 952.0 H 03/17/18 18:20 WBC Corrected WBC RBC Hgb Hct MCV MCH MCHC RDW RDW Differential Plt Count MPV Immature Gran % (Auto) Neut % (Auto) Lymph % (Auto) Terrell % (Auto) Eos % (Auto) Baso % (Auto) Immature Gran # (Auto) Absolute Neuts (auto) Absolute Lymphs (auto) Absolute Monos (auto) Total Counted Neutrophils % (Manual) Band Neutrophils % Lymphocytes % (Manual) Monocytes % (Manual) Eosinophils % (Manual) Basophils % (Manual) Metamyelocytes % Myelocytes % Promyelocytes % Blast Cells % Plasma Cell % (Manual) Other Cells % Lymphocytes # Nucleated RBCs/100 WBC Differential Comment Diff Path Review Hypersegmented Neuts Atypical Lymphocytes Reactive Lymphocytes Smudge Cells Eosinophilia # Basophilia # Toxic Granulation Dohle Bodies Stan Rods Platelet Estimate Plt Morphology Comment RBC Morphology Polychromasia Hypochromasia Poikilocytosis Basophilic Stippling Anisocytosis Microcytosis Macrocytosis Spherocytes Sickle Cells Target Cells Tear Drop Cells Ovalocytes Stomatocytes [place] Bodies [place] Cells Bite Cells Acanthocytes (Spur) Rouleaux Schistocytes Sodium Potassium 5.3 H Chloride Carbon Dioxide Anion Gap BUN Creatinine Estim Creat Clear Calc Est GFR (MDRD) Af Amer Est GFR (MDRD) Non-Af BUN/Creatinine Ratio Glucose Calcium Troponin I B-Natriuretic Peptide Diagnostic Data Chest X-Ray 03/17/18 16:50 IMPRESSION: Moderate cardiomegaly. Prominence of the pulmonary arteries. No acute cardiopulmonary disease process is seen. Chest findings are stable in the interval. Electronically Signed: Tristan Sheets MD at 18:36 EST , Service support , Assessment/Plan All Active Problems CHF exacerbation (Acute) Acute kidney failure (Acute) Bacteremia due to Streptococcus (Resolved) Pulmonary embolus (Resolved) Viridans streptococci infection (Resolved) 52-year-old female admitted with a complaint of shortness of breath for 1-1/2 weeks. 1. Acute on chronic hypoxic respiratory failure due to COPD exacerbation from URTI and diastolic CHF exacerbation * claims compliance with her breathing treatments, diuretics and home oxygen. * Saturation dropped to 80s on ambulation in the ED was on 6 L of oxygen. * BNP is 952. Chest x-ray showed lungs are clear * Admit to PCU with telemetry. * Start IV Lasix 40 mg twice daily. * Check respiratory panel * Breathing treatments with duo nebs. * Give IV Solu-Medrol 40 mg every 8. * Monitor daily weights and input output chart. * Titrate oxygen to maintain saturation above 92%. * * 2. Hyperkalemia: Potassium was 6.8 on admission which was due to moderate hemolysis. Repeat potassium is 5.3. Give Kayexalate and monitor. 3. AK on CKD: Creatinine is 1.59 with baseline being around 1.1. Cannot hyd rate on account of heart failure. Will monitor for improvement. 4. COPD exacerbation : As under 1. Still continues to smoke. Counseled to stop smoking. 5. URTI: As under 1 6. History of CAD: On aspirin, statin 7. Acute on chronic Diastolic heart failure: * As under 1. * Will hold losartan on account of hyperkalemia. * Continue metoprolol. * Will hold bumetanide on account of her being given IV Lasix. 8. History of PE: On Eliquis 9. Depression: On venlafaxine and buspirone VT prophylaxis: On Eliquis CODE STATUS: Patient counseled extensively about different types of CODE STATUS including full code, DNR CCA and DNR CCA. Patient elects to be full code. Total [id number] time 16 minutes. Code Visit Inpatient E&M: 98400 Init Hosp L3 Procedures: 89979 Advncd Care Plan 30 Min
--- NOTE | 2018-03-17 20:16 | ED.DCSUM_ITS ---
- ER Visit Summary Date of Service: 03/17/18 Chief Complaint: Shortness of breath History of Present Illness: The patient is a 52 F with increasing shortness of breath over the past 10 days. Her symptoms have been continuous. Nothing seemed to bring them on or make them worse. She tried taking cold medicine and had minimal relief. She reports a cough with increasing sputum. She also has some lower extremity edema which seems to be getting worse. Denies fevers or chest pain. She has a history of COPD and takes 6 L of oxygen at home. She also has a history of CHF, hypertension, lymphedema, chronic kidney disease, sleep apnea, hypothyroidism. Physical Examination: Patient is afebrile and he dynamically normal on nasal cannula 6 L. 96%. BMI 60. Patient is sitting and appears in no acute distress. Alert and oriented. Heart regular rate and rhythm. Lungs diminished in all vuong. Abdomen soft and nontender. Extremities show symmetric peripheral edema with venous stasis changes. Pulses intact. Test Results: EKG showed sinus rhythm at a rate of 71. Right bundle branch block pattern noted with nonspecific T wave changes. Hemoglobin 15.2 and potassium 5.3. BUN 46 and creatinine 1.59. Troponin normal. BNP 952. Respiratory panel pending. Chest x-ray showed chronic changes and cardiomegaly. Emergency Department Course and Treatment: Patient had signs and symptoms of both infectious disease and also CHF. She was treated with a DuoNeb and Lasix on arrival. She was placed on a monitor. Her workup was all fairly unremarkable, but her symptoms were more severe. She attempted to ambulate and became hypoxic even on her baseline nasal cannula settings. Patient was discussed with the hospitalist and will be admitted for further care. Treatment Plan: As above Disposition: Discharge Impression: 1. COPD 2. Hypoxia This note was generated with [employer] dictation software. It may contain incorrect words, spelling, and punctuation that were not noted in review of the chart prior to signing ED Disposition - Plan for ED Patient: Referrals: Brian Thao MD [Primary Care Provider] -
[2018-03-17] MEDS: APIXABAN 5 MG TABLET PO (22:18)
[2018-03-17] MEDS: hydrOXYzine 10 MG Tablet PO (22:18)
[2018-03-17] MEDS: busPIRone 15 MG TABLET 7.5 MG PO (22:19)
[2018-03-17] MEDS: Metoprolol Tartrate 25 MG Tablet PO (22:19)
[2018-03-17] MEDS: Atorvastatin Calcium 40 MG Tablet PO (22:19)
[2018-03-17] MEDS: Acetaminophen 500 MG Tablet PO (22:25)
[2018-03-17] MEDS: Sodium Polystyrene Sulfonate 15 GM/60 ML UDC PO (23:51)
[2018-03-18] VITALS (19 sets, daily range): BP systolic 110–134; BP diastolic 56–96; PULSE 78–94; RESP 16–24; TEMP 36.4–37.1; O2SAT 84–94
[2018-03-18] MEDS: hydrOXYzine 10 MG Tablet PO ×3 (05:01→21:43)
[2018-03-18] MEDS: Levothyroxine 25 MCG TABLET PO (05:01)
[2018-03-18] MEDS: Ipratropium/Albuterol Sulfate 3 ML AMPUL.NEB INHALATION ×5 (06:32→23:00)
[2018-03-18 06:55] LABS: Absolute Lymphocyte Count 0.52 X10^3/ul (0.83-4.51); Absolute Neutrophil Count 5.5 X10^3/uL (2.0-7.7); Eosinophil# 0.01 X10^3/uL; Eosinophils% 0.2 % (0-5); Lymphocyte # 0.52 X10^3/ul (4.0); Lymphocyte % 8.2 % (19-41); Mean Corp Hgb Conc 26.6 g/gl (32-36); Mean Corpuscular Hgb 19.9 pg (27.0-32.0); Mean Corpuscular Volume 74.9 fL (81-99); Monocyte# 0.39 X10^3/uL; Monocyte% 6.1 % (0-10); Neutrophil # 5.45 X10^3/uL (2.7-7.7); Neutrophil % 85.3 % (47-70); Platelet Count 214 K/mm3 (150-450); RBC Distribution Width CV 23.5 % (11.6-14.6); RBC Distribution Width SD 62.2 fl (35.1-43.9); White Blood Count 6.4 K/mm3 (4.4-11.0)
[2018-03-18 06:57] LABS: Red Blood Count 7.53 M/mm3 (4.2-5.4)
[2018-03-18 06:58] LABS: Differential Indicated SCAN CRITERIA MET; Hematocrit 56.4 % (37-47); POSITIVE COUNT NO; POSITIVE DIFFERENTIAL YES; POSITIVE MORPHOLOGY YES
[2018-03-18 07:14] LABS: Anion Gap 11 (5-15); BUN 46 mg/dL (7-18); BUN/Creat Ratio 28.4 RATIO (10-20); Chloride 100 mmol/L (98-107); Creatinine, Serum 1.62 mg/dL (0.55-1.02); EST Glomerular Filtration Rate 35 mL/min (>60); Est Glom Filt Rate - Afr Amer 42 mL/min (>60); Estimated Creatinine Clearance 37.16 ml/min; Glucose 180 mg/dL (74-106); Sodium Level 142 mmol/L (136-145)
[2018-03-18 07:28] LABS: Anisocytosis 2+; Polychromasia 1+
--- NOTE | 2018-03-18 09:00 | PN_ITS ---
Subjective: The patient is a 52-year-old female with a past medical history of diastolic congestive heart failure, chronic renal failure stage III, hypertension, pulmonary emboli, COPD, chronic hypoxic respiratory failure on 5-6 L of oxygen chronically, super morbid obesity and tobacco dependence who presented to the emergency department at [facility] on 03/17/2018 complaining of increasing shortness of breath over the preceding 7-10 days. She complained of cough productive of greenish sputum. She denied fever or chills. She additionally complained of swelling of the LE's and abdominal distension. Vital signs of presentation to the emergency room were temperature 90 seven-point, pulse rate 73, blood pressure 143/113, respiratory rate 17 and she was 98% saturated on room air. White blood cell count was 8.1 with 72% neutrophils. Hemoglobin was 15.2 and platelets were within normal limits. Potassium was elevated at 5.3 and the serum bicarb was 32. BUN was 46 with a creatinine of 1.59 which is within her baseline. Troponin was less than 0.015 and the BNP was 952. Chest x-ray showed no infiltrates or pleural effusions. There is chronic elevation of the left hemidiaphragm. the pulmonary arteries are dilated and I suspect she has pulmonary HTN. Echocardiogram in June 2017 showed moderate concentric left ventricular hyp ertrophy with an estimated ejection fraction of 75%. There was stage I diastolic dysfunction and severe dilation of the right ventricle. There was biatrial enlargement. The right ventricular systolic pressure was estimated at 56 but this is likely underestimated. Cardiac catheterization in June 2017 showed nonobstructive coronary arteries. Tells me she is breathing better today. Admits to smoking 1PPD - Physical Exam General: Alert, Oriented x3, Cooperative, No apparent distress Oral: Moist Mucosa Neck: Supple Lungs: Clear to auscultation, No rhonchi, No wheeze, No rales, - - Not tachypneic, no conversational dyspnea, no accessory muscle use Cardiovascular: Regular rate, Regular Rhythm, Normal S1, Normal S2, No Gallop, - Abdomen: Soft, Non Tender, Obese Extremities: No clubbing, - - her nailbeds are cyanotic on both the hands and the feet.....the entire foot BL is purplish....denies pain Skin: No rashes Neurological: Cranial nerves II-XII grossly intact, Neuro grossly intact Psych/Mental Status: Normal Affect, Appropriate Vital Signs Temp Pulse Resp BP Pulse Ox 97.9 F 89 24 H 127/87 H 91 03/18/18 03:55 03/18/18 07:00 03/18/18 06:32 03/18/18 03:55 03/18/18 07:25 Oxygen Flow Rate (L/min) 6 Oxygen Delivery Method Venturi Mask Weight: 363 lb 8.676 oz Body Mass Index (BMI) 58.5 Intake and Output for Last 24 Hours 03/16/18 03/17/18 03/18/18 23:59 23:59 23:59 Intake Total 400 / 400 Output Total 1000 / 1000 375 / 375 Balance -600 / -600 -375 / -375 Laboratory Tests Past 24 Hrs 03/17/18 03/17/18 03/17/18 16:28 16:28 16:28 WBC Cancelled Corrected WBC Cancelled RBC Cancelled Hgb Cancelled Hct Cancelled MCV Cancelled MCH Cancelled MCHC Cancelled RDW Cancelled RDW Differential Cancelled Plt Count Cancelled MPV Cancelled Immature Gran % (Auto) Cancelled Neut % (Auto) Cancelled Lymph % (Auto) Cancelled [place] % (Auto) Cancelled Eos % (Auto) Cancelled Baso % (Auto) Cancelled Immature Gran # (Auto) Cancelled Absolute Neuts (auto) Cancelled Absolute Lymphs (auto) Cancelled Absolute Monos (auto) Cancelled Total Counted Cancelled Neutrophils % (Manual) Cancelled Band Neutrophils % Cancelled Lymphocytes % (Manual) Cancelled Monocytes % (Manual) Cancelled Eosinophils % (Manual) Cancelled Basophils % (Manual) Cancelled Metamyelocytes % Cancelled Myelocytes % Cancelled Promyelocytes % Cancelled Blast Cells % Cancelled Plasma Cell % (Manual) Cancelled Other Cells % Cancelled Lymphocytes # Cancelled Nucleated RBCs/100 WBC Cancelled Differential Comment Cancelled Diff Path Review Cancelled Hypersegmented Neuts Cancelled Atypical Lymphocytes Cancelled Reactive Lymphocytes Cancelled Smudge Cells Cancelled Eosinophilia # Cancelled Basophilia # Cancelled Toxic Granulation Cancelled Dohle Bodies Cancelled Stan Rods Cancelled Platelet Estimate Cancelled Plt Morphology Comment Cancelled RBC Morphology Cancelled Polychromasia Cancelled Hypochromasia Cancelled Poikilocytosis Cancelled Basophilic Stippling Cancelled Anisocytosis Cancelled Microcytosis Cancelled Macrocytosis Cancelled Spherocytes Cancelled Sickle Cells Cancelled Target Cells Cancelled Tear Drop Cells Cancelled Ovalocytes Cancelled Stomatocytes Cancelled [place] Bodies Cancelled Cynthia Cells Cancelled Bite Cells Cancelled Acanthocytes (Spur) Cancelled Rouleaux Cancelled Schistocytes Cancelled Sodium Cancelled Potassium Cancelled Chloride Cancelled Carbon Dioxide Cancelled Anion Gap Cancelled BUN Cancelled Creatinine Cancelled Estim Creat Clear Calc Cancelled Est GFR (MDRD) Af Amer Cancelled Est GFR (MDRD) Non-Af Cancelled BUN/Creatinine Ratio Cancelled Glucose Cancelled Calcium Cancelled Troponin I Cancelled B-Natriuretic Peptide Cancelled 03/17/18 03/17/18 03/17/18 17:35 17:35 17:35 WBC 8.1 Corrected WBC RBC 7.56 H Hgb 15.2 H Hct 55.7 H MCV 73.7 L MCH 20.1 L MCHC 27.3 L RDW 23.5 H RDW Differential 60.5 H Plt Count 229 MPV Immature Gran % (Auto) 0.100 Neut % (Auto) 72.5 H Lymph % (Auto) 18.0 L [place] % (Auto) 6.2 Eos % (Auto) 2.5 Baso % (Auto) 0.7 Immature Gran # (Auto) Absolute Neuts (auto) 5.9 Absolute Lymphs (auto) 1.45 Absolute Monos (auto) Total Counted Not Reportable Neutrophils % (Manual) Band Neutrophils % Lymphocytes % (Manual) Monocytes % (Manual) Eosinophils % (Manual) Basophils % (Manual) Metamyelocytes % Myelocytes % Promyelocytes % Blast Cells % Plasma Cell % (Manual) Other Cells % Lymphocytes # Nucleated RBCs/100 WBC Differential Comment SCANNED Diff Path Review Hypersegmented Neuts Atypical Lymphocytes Reactive Lymphocytes Smudge Cells Eosinophilia # Basophilia # Toxic Granulation Dohle Bodies Stan Rods Platelet Estimate ADEQUATE Plt Morphology Comment LARGE RBC Morphology Polychromasia 1+ Hypochromasia 1+ Poikilocytosis 2+ Basophilic Stippling Anisocytosis 3+ Microcytosis 1+ Macrocytosis 1+ Spherocytes Sickle Cells Target Cells Tear Drop Cells 1+ Ovalocytes 1+ Stomatocytes [place] Bodies [place] Cells Bite Cells Acanthocytes (Spur) Rouleaux Schistocytes Sodium 139 Potassium 6.8 H* Chloride 101 Carbon Dioxide 32.0 Anion Gap 6 BUN 46 H Creatinine 1.59 H Estim Creat Clear Calc 37.87 Est GFR (MDRD) Af Amer 43 L Est GFR (MDRD) Non-Af 36 L BUN/Creatinine Ratio 28.9 H Glucose 78 Calcium 7.4 L Troponin I < 0.015 B-Natriuretic Peptide 952.0 H 03/17/18 03/18/18 03/18/18 18:20 06:03 06:03 WBC 6.4 Corrected WBC RBC 7.53 H Hgb 15.0 Hct 56.4 H MCV 74.9 L MCH 19.9 L MCHC 26.6 L RDW 23.5 H RDW Differential 62.2 H Plt Count 214 MPV Immature Gran % (Auto) 0.200 Neut % (Auto) 85.3 H Lymph % (Auto) 8.2 L [place] % (Auto) 6.1 Eos % (Auto) 0.2 Baso % (Auto) 0.0 Immature Gran # (Auto) Absolute Neuts (auto) 5.5 Absolute Lymphs (auto) 0.52 L Absolute Monos (auto) Total Counted Not Reportable Neutrophils % (Manual) Band Neutrophils % Lymphocytes % (Manual) Monocytes % (Manual) Eosinophils % (Manual) Basophils % (Manual) Metamyelocytes % Myelocytes % Promyelocytes % Blast Cells % Plasma Cell % (Manual) Other Cells % Lymphocytes # Nucleated RBCs/100 WBC Differential Comment Diff Path Review Hypersegmented Neuts Atypical Lymphocytes Reactive Lymphocytes Smudge Cells Eosinophilia # Basophilia # Toxic Granulation Dohle Bodies Stan Rods Platelet Estimate Plt Morphology Comment RBC Morphology Polychromasia 1+ Hypochromasia Poikilocytosis Basophilic Stippling Anisocytosis 2+ Microcytosis Macrocytosis Spherocytes Sickle Cells Target Cells Tear Drop Cells Ovalocytes Stomatocytes [place]avez[place] Bodies [place] Cells Bite Cells Acanthocytes (Spur) Rouleaux Schistocytes Sodium 142 Potassium 5.3 H 5.0 Chloride 100 Carbon Dioxide 31.0 Anion Gap 11 BUN 46 H Creatinine 1.62 H Estim Creat Clear Calc 37.16 Est GFR (MDRD) Af Amer 42 L Est GFR (MDRD) Non-Af 35 L BUN/Creatinine Ratio 28.4 H Glucose 180 H Calcium 9.0 Troponin I B-Natriuretic Peptide Medical Necessity - Tobacco Use Smoking Status: Current every day smoker Tobacco Use: Cigarettes Assessment/Plan All Active Problems CHF exacerbation (Acute) Acute kidney failure (Acute) Bacteremia due to Streptococcus (Resolved) Pulmonary embolus (Resolved) Viridans streptococci infection (Resolved) Impressions 1. acute exacerbation COPD-respiratory panel negative 2. Acute on chronic hypoxic respiratory failure secondary to acute exacerbation of COPD-likely secondary to viral URI plus/minus acute diastolic congestive heart failure 3. Obstructive sleep apnea-last sleep test was many years ago, not wearing CPAP. Has no grease maker 4. Chronic renal failure stage III 5. Mild hyperkalemia 6. Tobacco dependence 7. Coronary artery disease 8. Acute on chronic diastolic congestive heart failure 9. Dyslipidemia 10. Anxiety Continue to hold losartan Continue metoprolol Continue apixaban 5 mg twice daily Can likely transition to oral Lasix in the a.m. Continue aerosolized bronchodilators Discontinue Solu-Medrol and start prednisone in the a.m. I suspect the wheezing was mostly due to acute CHF and not due to COPD because it has resolved so quickly Code Visit Inpatient E&M: 55736 Subs Hosp L2
[2018-03-18] MEDS: 0.9% NaCl Peripheral Flush Adult/Peds IV ×3 (09:25→17:17)
[2018-03-18] MEDS: Aspirin 81 MG TAB.CHEW PO (09:26)
[2018-03-18] MEDS: APIXABAN 5 MG TABLET PO ×2 (09:26→21:43)
[2018-03-18] MEDS: Folic Acid 1 MG Tablet PO (09:26)
[2018-03-18] MEDS: Furosemide 40 MG/4 ML Vial IV ×2 (09:27→17:16)
[2018-03-18] MEDS: Multivitamins,Ther W-Minerals Tablet 1 TABLET PO (09:27)
[2018-03-18] MEDS: Gabapentin 100 MG Capsule 300 MG PO (09:28)
[2018-03-18] MEDS: Venlafaxine XR 150 MG Capsule PO (09:28)
[2018-03-18] MEDS: Oxybutynin 5 MG Tablet PO (09:28)
[2018-03-18] MEDS: busPIRone 15 MG TABLET 7.5 MG PO ×2 (09:28→21:44)
[2018-03-18] MEDS: Metoprolol Tartrate 25 MG Tablet PO ×2 (09:28→21:45)
[2018-03-18] MEDS: Acetaminophen 500 MG Tablet PO ×3 (11:52→23:55)
[2018-03-18] MEDS: Gabapentin 300 MG Capsule PO ×2 (17:17→23:54)
--- NOTE | 2018-03-18 17:30 | NURSING ---
Spoke with PT. about removal of lujan at this time - PT refused to have it removed and stated, You will have to take this out over my body. Educated PT. on infection risk. PT expressed that she was not willing to have the lujan out. She then stated,Unless you want to mop up pee all night. This isn't coming out. Do you wanna mop up pee all night? Explained to PT. we have incontinence pads and ways to keep her dry. PT. refused. Informed charge accounts audit clerkMARIEL Morin and she messaged MD Nguyen.
[2018-03-18] MEDS: Atorvastatin Calcium 40 MG Tablet PO (21:51)
[2018-03-18] MEDS: MELATONIN 3 MG TABLET PO (23:30)
[2018-03-19] VITALS (9 sets, daily range): BP systolic 129–142; BP diastolic 80–92; PULSE 81–93; RESP 16–18; TEMP 36.2–36.6; O2SAT 93–94
[2018-03-19] MEDS: Levothyroxine 25 MCG TABLET PO (05:26)
[2018-03-19] MEDS: hydrOXYzine 10 MG Tablet PO ×2 (05:26→16:01)
[2018-03-19 06:47] LABS: Anion Gap 6 (5-15); BUN 50 mg/dL (7-18); BUN/Creat Ratio 35.7 RATIO (10-20); Chloride 100 mmol/L (98-107); EST Glomerular Filtration Rate 42 mL/min (>60); Est Glom Filt Rate - Afr Amer 50 mL/min (>60); Glucose 154 mg/dL (74-106); Magnesium 2.4 mg/dL (1.6-2.6); Potassium 4.9 mmol/L (3.5-5.1); Sodium Level 140 mmol/L (136-145)
[2018-03-19] MEDS: Acetaminophen 500 MG Tablet PO ×3 (09:35→17:43)
--- NOTE | 2018-03-19 09:38 | CASEMGMT ---
Addendum entered by Yared Cha 03/19/18 10:54: [facility] is not able to take pt for HHS. Julianna updated via phone. Original Note: RN CM Assessment Presentation: Pt presented with shortness of breath. 5-6L oxygen @ home. Sore throat 2 days ago. Pt states her shortness of breath has been increasing. Also states she is spending more time in WC at home, has been very inactive. PMH: COPD, CHF Intro role of CM and purpose of RN CM assessment. PCP:Dr. Thao Specialists: Pt Preferred Pharmacy: Insurance: [employer] Prescription Benefit: yes LNOK: Daughter, Aruna Fuller, Sister Randall Pierce (pt states any information can be given to either) Living Arrangements: Apartment. Pt states she is able to dress, make meals, some chores by herself. Sister assists with baths/showers. Transportation: [employer] D[employer]: Walker, W/C, hand held shower, rails/grab bars, nebulizer, Oxygen through [employer]: concentrator, portable tanks. HHC: [facility] in past. Pt agreeable to have [facility] on dc. RN/aide/PT. -Call to [facility], they are unable to staff at this time due to pt's wound care and no aide availability. Call to [facility]. Kristi will assess referral but is unsure if they take this insurance. Anticipate call back. -[facility] order placed for RN, aide and PT DC PLAN: Home with [facility]. PT/OT evaluations pending, will need to review their recommendations.
[2018-03-19] MEDS: APIXABAN 5 MG TABLET PO (09:43)
[2018-03-19] MEDS: Aspirin 81 MG TAB.CHEW PO (09:43)
[2018-03-19] MEDS: predniSONE 20 MG Tablet 40 MG PO (09:44)
[2018-03-19] MEDS: Gabapentin 300 MG Capsule PO ×2 (09:44→16:02)
[2018-03-19] MEDS: Multivitamins,Ther W-Minerals Tablet 1 TABLET PO (09:44)
[2018-03-19] MEDS: Folic Acid 1 MG Tablet PO (09:44)
[2018-03-19] MEDS: busPIRone 15 MG TABLET 7.5 MG PO (09:45)
[2018-03-19] MEDS: Oxybutynin 5 MG Tablet PO (09:45)
[2018-03-19] MEDS: Metoprolol Tartrate 25 MG Tablet PO (09:46)
[2018-03-19] MEDS: Furosemide 40 MG/4 ML Vial IV ×2 (09:46→17:35)
[2018-03-19] MEDS: Venlafaxine XR 150 MG Capsule PO (09:46)
--- NOTE | 2018-03-19 11:51 | CASEMGMT ---
RN CM NOTE: Call to [facility] for referral. Clinical information faxed to [facility] @ . Fax cover with Julianna call back information given. Pending acceptance of referral. Timothy HUBERN RN ACM
--- NOTE | 2018-03-19 14:05 | CASEMGMT ---
SW spoke with patient. Introduced self and role at [facility]. SW asked patient if she has ever applied for the Waiver Program. She said she has no idea as her sister normally does all the paperwork. FLOR explained the program to her. She was in agreement with FLOR sending in a referral to [facility]. FLOR called [facility] to obtain a fax number. However, she was able to put in a referral for patient for the waiver program. Stephanie BOUDREAUX MSW
--- NOTE | 2018-03-19 15:06 | DCINST_ITS ---
You will use the following diet at home:: Cardiac, Fluid restricted (specify 2000 mls, 1500 mls) - 1500 cc/day Your food should be the consistency of: Regular Your liquids should be the consistency of: Regular/Thin Discharge Activity: Return to Normal Activity Call your doctor if you observe: Shortness of breath, Chest pain Instructions: What Is Heart Failure?, Heart Failure: Tracking Your Weight, Heart Failure: Making Changes to Your Diet, Discharge Instructions for Heart Failure Additional Instructions: Daily weights and keep a record. Notify physician if weight increase of 2 pounds in 1 day, or 3 pounds in 1 week. Allergies/Adverse Reactions: Allergies aspirin [From Percodan] Allergy (Verified 03/17/18 16:24) Hives oxycodone HCl [From Percodan] Allergy (Verified 03/17/18 16:24) Hives oxycodone terephthalate [From Percodan] Allergy (Verified 03/17/18 16:24) Hives Sulfa (Sulfonamide Antibiotics) Allergy (Verified 03/17/18 16:24) Hives cefuroxime Adverse Reaction (Verified 03/17/18 16:24) Unknown Cephalosporins Adverse Reaction (Verified 03/17/18 16:24) Vomiting meperidine HCl [From Demerol] Adverse Reaction (Verified 03/17/18 16:24) Vomiting NSAIDS (Non-Steroidal Anti-Inflamma Adverse Reaction (Verified 03/17/18 16:24) Unknown oxycodone [Oxycodone] Adverse Reaction (Verified 03/17/18 16:24) Rash Medications to take at Discharge Acetaminophen 500 mg PO Q6H PRN 11/28/16 Albuterol Inhaler [Ventolin Hfa] 1 - 2 puff INHALATION Q4H PRN PRN 11/28/16 Buspirone HCl 7.5 mg PO BID 11/28/16 Cholecalciferol (Vitamin D3) [Vitamin D3] 50,000 unit PO QWEEK 11/28/16 Docusate Sodium [Stool Softener] 100 mg PO BID PRN PRN 11/28/16 Folic Acid 1 mg PO DAILY 11/28/16 Gabapentin [Neurontin] 300 mg PO BIDCM 11/28/16 Levothyroxine [Synthroid] 25 mcg PO DAILY 11/28/16 Oxybutynin [Ditropan] 5 mg PO DAILY 11/28/16 Venlafaxine HCl [Venlafaxine HCl ER] 150 mg PO DAILY 11/28/16 Hydroxyzine HCl 10 mg PO TID 06/13/17 Multivitamin with Iron [Tab-A-Jessica with Iron] 1 each PO DAILY 06/13/17 Apixaban [Eliquis] 5 mg PO 0800,2000 #60 tab 06/18/17 Aspirin [Aspirin, Baby] 81 mg PO DAILY@0800 #30 tab.chew 06/18/17 Metoprolol Tartrate [Lopressor (beta vineet)] 25 mg PO BID #60 tab 06/18/17 Atorvastatin Calcium [Lipitor] 40 mg PO QHS 01/07/18 Bumetanide [Bumex] 4 mg PO BID #60 tab 03/19/18 Melatonin 3 mg PO QHS #30 tablet 03/19/18 Prednisone [Deltasone] 2 tab PO DAILY #8 tablet 03/19/18 The following prescriptions were given: Melatonin 3 mg PO QHS #30 tablet Prednisone [Deltasone] 2 tab PO DAILY #8 tablet Bumetanide [Bumex] 4 mg PO BID #60 tab Orders to be completed after discharge: Basic Metabolic Profile (BMP) Time Frame: 1 Week, Location: Laboratory Primary Care Physician: Brian Thao MD [Primary Care Provider] - Within 1 Week Test Results: Test results from this visit will be discussed in further detail at your follow- up appointment, if applicable. Please Follow Up With: Joey Spear MD When: 2-4 weeks Proposed Discharge Date: 03/19/18
--- NOTE | 2018-03-19 15:10 | DS.PCM_ITS ---
Discharge Date and Diagnosis - Problem List Patient Problems: Active and Suspected Problems CHF exacerbation (Acute) Acute kidney failure (Acute) Date of Admission: 03/17/18 Date of Discharge: 03/19/18 - Secondary Discharge Diagnosis Chronic Problems COPD (chronic obstructive pulmonary disease) (Chronic) Hypothyroidism (Chronic) Lymphedema (Chronic) Hypertension (Chronic) CKD (chronic kidney disease) stage 3, GFR 30-59 ml/min (Chronic) Morbid obesity with BMI of 60.0-69.9, adult (Chronic) Transaminitis (Chronic) Hospital Course and Treatment Imaging Results: Clinical Impression(s) from Imaging Studies Chest X-Ray 03/17/18 16:50 IMPRESSION: Moderate cardiomegaly. Prominence of the pulmonary arteries. No acute cardiopulmonary disease process is seen. Chest findings are stable in the interval. Electronically Signed: Tristan Sheets MD at 18:36 EST , Service support , Operations: None Procedures: None Summary of Care Provided: The patient is a 52 year old F presents with shortness of breath. Concern was for initial COPD exacerbation and pneumonia. On further evaluation, appear that this was more heart failure related. Patient's weight on admission was 169 kg. Back in June, her weight was 149 kg. Patient was started on IV Lasix and weight dropped down approximately 4 kg. Patient is feeling better. Patient still does have edema. Advised patient to restrict her fluid intake from 2000 L/day to 1.5 L/day. Start the patient also check her weight daily and keep a log of that. Patient advised to notify physician if she has a weight gain of greater than 2 pounds 1 day or 3 pounds in 1 week. Patient was on IV Lasix here with a change back to Bumex. Patient was on 2 mg twice daily but be increased to 4 mg twice daily. Patient previously had been on Lasix 80 mg 3 times daily back in June but still developed heart failure at that time and was changed over to Bumex. Patient will need to have her BMP checked as outpatient to ensure she is not having worsening kidney disease. Patient did have some hyperkalemia while she was here patient's losartan was held that and as well as account of acute kidney injury. Patient's baseline creatinine is 1.4 but which came in her creatinine was 1.8. That is since normalized. Overall the patient is doing better. Patient does have a history of sleep apnea and did have 1 study to verify that she did have sleep apnea but never followed up to have a CPAP titration. That was many years ago. Patient advised to follow pulmonology and get reestablished have a sleep study to get a CPAP and BiPAP. Patient does based on echocardiogram back in June, having a right jugular systolic pressure of 73 mmHg. [] Patient Problems: Active and Suspected Problems CHF exacerbation (Acute) Acute kidney failure (Acute) - Physical Exam General: Alert, No apparent distress HEENT: Atraumatic, Normocephalic Oral: Moist Mucosa, No Gingival or Mucosal Lesions/ Ulcerations Neck: No Nodes, Thyroid Normal Size and Texture Lungs: Clear to auscultation, Normal air movement, No rhonchi, No wheeze, Diminished Cardiovascular: Regular rate, Regular Rhythm, Normal S1, Normal S2, No murmurs Abdomen: Bowel Sounds Present, Soft, Non Tender, Non-Distended, No Hepato- splenomegaly Extremities: No Calf Tenderness, Edema Vital Signs Temp Pulse Resp BP Pulse Ox 36.2 C L 81 16 129/80 H 93 03/19/18 09:37 03/19/18 11:33 03/19/18 09:37 03/19/18 09:46 03/19/18 09:37 Oxygen Flow Rate (L/min) 5 Oxygen Delivery Method Nasal Cannula Weight: 165.8 kg Body Mass Index (BMI) 58.5 Intake and Output for Last 24 Hours 03/17/18 03/18/18 03/19/18 23:59 23:59 23:59 Intake Total 400 / 400 1260 / 1260 600 / 600 Output Total 1000 / 1000 1825 / 1825 1400 / 1400 Balance -600 / -600 -565 / -565 -800 / -800 Microbiology Past 72 Hours 03/17/18 20:25 Respiratory Panel (PCR) - Final Mucosa - Nasopharyngeal Laboratory Tests Past 24 Hrs 03/19/18 05:55 Sodium 140 Potassium 4.9 Chloride 100 Carbon Dioxide 34.0 H Anion Gap 6 BUN 50 H Creatinine 1.40 H Estim Creat Clear Calc 43.00 Est GFR (MDRD) Af Amer 50 L Est GFR (MDRD) Non-Af 42 L BUN/Creatinine Ratio 35.7 H Glucose 154 H Calcium 9.0 Magnesium 2.4 Discharge Diet: Low fat/ Low Cholesterol, 6 Cup Fluid Restriction, 2000 mg Sodium Diet Discharge Activity: Return to Normal Activity Call your doctor if you observe: Shortness of breath, Chest pain Home Medications: Medications to take at Discharge Acetaminophen 500 mg PO Q6H PRN 11/28/16 Albuterol Inhaler [Ventolin Hfa] 1 - 2 puff INHALATION Q4H PRN PRN 11/28/16 Buspirone HCl 7.5 mg PO BID 11/28/16 Cholecalciferol (Vitamin D3) [Vitamin D3] 50,000 unit PO QWEEK 11/28/16 Docusate Sodium [Stool Softener] 100 mg PO BID PRN PRN 11/28/16 Folic Acid 1 mg PO DAILY 11/28/16 Gabapentin [Neurontin] 300 mg PO BIDCM 11/28/16 Levothyroxine [Synthroid] 25 mcg PO DAILY 11/28/16 Oxybutynin [Ditropan] 5 mg PO DAILY 11/28/16 Venlafaxine HCl [Venlafaxine HCl ER] 150 mg PO DAILY 11/28/16 Hydroxyzine HCl 10 mg PO TID 06/13/17 Multivitamin with Iron [Tab-A-Jessica with Iron] 1 each PO DAILY 06/13/17 Apixaban [Eliquis] 5 mg PO 0800,1999 #60 tab 06/18/17 Aspirin [Aspirin, Baby] 81 mg PO DAILY@0800 #30 tab.chew 06/18/17 Metoprolol Tartrate [Lopressor (beta vineet)] 25 mg PO BID #60 tab 06/18/17 Atorvastatin Calcium [Lipitor] 40 mg PO QHS 01/07/18 Bumetanide [Bumex] 4 mg PO BID #60 tab 03/19/18 Melatonin 3 mg PO QHS #30 tablet 03/19/18 Prednisone [Deltasone] 2 tab PO DAILY #8 tablet 03/19/18 Following Prescrptions Were Given to Patient: Melatonin 3 mg PO QHS #30 tablet Prednisone [Deltasone] 2 tab PO DAILY #8 tablet Bumetanide [Bumex] 4 mg PO BID #60 tab Other Amb Orders: Basic Metabolic Profile (BMP) Time Frame: 1 Week, Location: Laboratory Primary Care Physician: Brian Thao MD [Primary Care Provider] - Within 1 Week Please Follow Up With: Joey Spear MD When: 2-4 weeks Patient Instructions: What Is Heart Failure?, Heart Failure: Tracking Your Weight, Heart Failure: Making Changes to Your Diet, Discharge Instructions for Heart Failure Disposition: Home with Home Health Minutes spent on discharge:: 32 Patient Condition:: Fair Medical Necessity - Tobacco Use Smoking Status: Current every day smoker Tobacco Use: Cigarettes Meaningful Use Info Meaningful Use Diagnoses (Choose all that apply): CHF - CHF DEJON/ARB ordered at discharge?: No Reason DEJON/ARB not ordered?: Hyperkalemia Documented LVEF (%): 65 Code Visit Inpatient E&M: 44451 Subs Hosp L2
--- NOTE | 2018-03-19 16:24 | CASEMGMT ---
Addendum entered by Arlette Banks 03/19/18 17:02: Face to face documentation faxed to [facility] per their request. Original Note: MARIEL LEÓN NOTE: Call placed to [facility] to inquire about acceptance for HHC. Spoke with Nabila. Nabila states they are awaiting call back from Dr Thao re: if he will follow pt after discharge for HHC. Per Nabila, pt has not seen Dr Thao since July 2017. Call placed to Jessie, environmental coordinator @ Dr Thao's office. She confirms pt has not been seen by Dr Thao since 07/2017 and that pt has cancelled her appts that she had since then. MARIEL LEÓN to room to talk with pt. Pt states she has had issues with transportation, stating that she has used [employer] in the past but states they have not been available lately when she has appts. Call placed back to Jessie and she was notified of this. She states she will call [facility] to try and arrange transportation. Call received back from Jessie. She made appt for pt to see Dr Thao on 03/21 @ 1620 and scheduled transportation through [facility]. Jessie states that Dr Thao states he will follow pt for HHC if pt shows up to the appt on Monday with Dr Thao on Monday. Pt made aware of importance of appt with Dr Thao and [facility] Pt voices understanding. Pt given print-out of appts with Dr Thao and made aware she needs to be ready for transportation by [facility] by 2:45 on 03/21. Pt voices understanding. Pt states her granddaughter does not get home from school until 4 PM, but she that she can see if her sister can take care of her granddaughter that day so she can go to the appt. Pt also given print-out on times of appt with Dr Spear and provided information on [facility] transportation services if she needs transportation to that appt as well. Jermaine YOUNG RN, CM
--- NOTE | 2018-03-19 16:37 | CASEMGMT ---
MARIEL LEÓN Note Pt to be dc'd today. Will need cot transport home, oxygen during transport. Pt states her sister will unlock door for pt to get in home. Pt is unable to sit for length of transport and will need oxygen and bariatric cot. Pt is agreeable. MARIEL LEÓN called to [facility]- no prior authorization for cot transport home is required. [facility] updated and will set up transportation home. Timothy YOUNG RN ACM
[2018-03-19] MEDS: 0.9% NaCl Peripheral Flush Adult/Peds IV (17:35)
--- NOTE | 2018-03-20 16:04 | CASEMGMT ---
MARIEL LEÓN Discharge Follow-up Phone Call: RONIT: Charlie Strata: 3 Call Date: 03/20/18 Discharge Date: 03/19/18 Time of Call: 1555 Duration: 3 min Admitting Diagnosis: acute on chronic hypoxic respiratory failure. MARIEL LEÓN completed follow-up phone call after recent hospitalization. Patient states that she is doing well. Denied questions regarding discharge instructions. Patient was able to fill prescriptions without any issues. Patient is aware of follow-up appt with PCP tomorrow with [facility] providing transportation. Patient also is aware of follow-up appt with powder mixer. Addendum was enter by hospitalist to follow-up with Dr. Pearce, pulmunologist, for sleep apnea. MARIEL LEÓN offered number for Dr. Pearce's office, patient requested CM call back in few days as she did not have pen or paper available. MARIEL LEÓN called Dr. Pearce's office and arranged for office to call patient to schedule appt. [facility] was setup for patient at discharge. Patient also has Waiver Program.
== END 2018-03-19 18:00 | disposition home or self-care (01) | DRG 194 ==
LOC: ED 20:06 → PCU 20:16
PROVIDERS: Internal Medicine; Admitting Provider Student in an Organized Health Care Education/Training Program; Emergency Provider Emergency Medicine; Family Provider Internal Medicine; PCP Internal Medicine
DX: I13.0 Hypertensive heart and chronic kidney disease with heart failure and stage 1 through stage 4 chronic kidney disease, or unspecified chronic kidney disease (principal); J96.21 Acute and chronic respiratory failure with hypoxia; N17.9 Acute kidney failure, unspecified; Z99.81 Dependence on supplemental oxygen; N18.3 Chronic kidney disease, stage 3 (moderate); E87.5 Hyperkalemia; I50.33 Acute on chronic diastolic (congestive) heart failure; E66.01 Morbid (severe) obesity due to excess calories; Z68.43 Body mass index [BMI] 50.0-59.9, adult; I25.10 Atherosclerotic heart disease of native coronary artery without angina pectoris; E03.9 Hypothyroidism, unspecified; J44.9 Chronic obstructive pulmonary disease, unspecified; F32.9 Major depressive disorder, single episode, unspecified; F17.210 Nicotine dependence, cigarettes, uncomplicated; E78.5 Hyperlipidemia, unspecified; G47.33 Obstructive sleep apnea (adult) (pediatric); Z79.01 Long term (current) use of anticoagulants; Z86.711 Personal history of pulmonary embolism; Z79.82 Long term (current) use of aspirin; I89.0 Lymphedema, not elsewhere classified; R74.0 Nonspecific elevation of levels of transaminase and lactic acid dehydrogenase [LDH]
CPT/HCPCS: 36415; 51702; 71045; 80048; 83735; 83880; 84132; 84484; 85025; 87633; 93005; 94640; 97110; 97162; 97165; 99285; 99406; J7050; A4216; J1940

== ENCOUNTER 2018-03-21 11:40 | Inpatient (IN) | payer MEDICAID, SELFPAY ==
[2018-03-17 21:11] VITALS: BMI 58.5
[2018-03-21] VITALS (13 sets, daily range): BP systolic 81–135; BP diastolic 37–94; PULSE 72–93; RESP 17–21; TEMP 36.6–36.8; O2SAT 89–96; BMI 48.4; BMI 57.2
--- NOTE | 2018-03-21 12:10 | EKG12_ITS ---
Test Reason : DIZZINESS Blood Pressure : / mmHG Vent. Rate : 079 BPM Atrial Rate : 079 BPM P-R Int : 168 ms QRS Dur : 162 ms QT Int : 438 ms P-R-T Axes : 056 140 -25 degrees QTc Int : 502 ms Normal sinus rhythm Possible Left atrial enlargement Right bundle branch block , plus right ventricular hypertrophy Septal infarct , age undetermined T wave abnormality, consider inferior ischemia Abnormal ECG Confirmed by JM BONILLA, BRODY ([id number]), purchasing expeditor YAMILKA HEIN ([id number]) on 03/26/2018 9:46:28 AM Referred By: AMADA Confirmed By:BRODY ONEAL MD
--- NOTE | 2018-03-21 12:10 | RAD_ITS ---
STUDY: X-RAY CHEST REASON FOR EXAM: Female, 52 years old. Dizziness. Shortness of breath. TECHNIQUE: Single AP portable view of the chest. COMPARISON: Comparison is made with prior study dated March 17, 2018. FINDINGS: EKG electrodes are seen. Stable mild increased interstitial markings at the lung bases suggestive of possible scarring. There is no demonstrated pleural abnormality. There is mild cardiac enlargement. Normal mediastinum and randolph. There is prominence of the pulmonary hilar arteries without peripheral pulmonary vascular congestion, suggesting pulmonary hypertension. There is atherosclerotic tortuosity of the aortic arch and descending thoracic aorta. Normal visualized thoracic spine. Normal visualized ribs, clavicles, and shoulders. There is no demonstrated abnormality of the visualized soft tissue structures of the upper abdomen. RAD/Chest 1 View (Portable) IMPRESSION: Mild stable increased markings at the lung bases suggestive scarring. Cardiomegaly. Prominence of the central pulmonary arteries suggestive of pulmonary hypertension. Electronically Signed: Alvin Schmitt MD at 13:27 EST , Service support ,
[2018-03-21] MEDS: Ipratropium/Albuterol Sulfate 3 ML AMPUL.NEB INHALATION ×2 (12:25→18:44)
[2018-03-21 13:12] LABS: Anion Gap 4 (5-15); BUN 55 mg/dL (7-18); BUN/Creat Ratio 36.7 RATIO (10-20); Calcium,Total 9.1 mg/dL (8.5-10.1); Chloride 97 mmol/L (98-107); EST Glomerular Filtration Rate 38 mL/min (>60); Est Glom Filt Rate - Afr Amer 46 mL/min (>60); Estimated Creatinine Clearance 40.14 ml/min; Glucose 117 mg/dL (74-106); Potassium 4.3 mmol/L (3.5-5.1); Sodium Level 139 mmol/L (136-145)
[2018-03-21 13:32] LABS: Anisocytosis 1+
[2018-03-21 13:33] LABS: Microcytosis 2+
[2018-03-21 13:34] LABS: Absolute Lymphocyte Count 1.42 X10^3/ul (0.83-4.51); Absolute Neutrophil Count 6.3 X10^3/uL (2.0-7.7); Differential Indicated SCAN CRITERIA MET; Eosinophil# 0.13 X10^3/uL; Eosinophils% 1.4 % (0-5); Hematocrit 56.8 % (37-47); Hemoglobin 15.4 g/dl (12.0-15.0); Lymphocyte # 1.42 X10^3/ul (4.0); Lymphocyte % 15.7 % (19-41); Mean Corp Hgb Conc 27.1 g/gl (32-36); Mean Corpuscular Volume 73.7 fL (81-99); Monocyte# 1.21 X10^3/uL; Monocyte% 13.4 % (0-10); Neutrophil # 6.27 X10^3/uL (2.7-7.7); Neutrophil % 69.4 % (47-70); POSITIVE COUNT NO; POSITIVE DIFFERENTIAL NO; POSITIVE MORPHOLOGY YES; Platelet Count 157 K/mm3 (150-450); RBC Distribution Width CV 23.5 % (11.6-14.6); RBC Distribution Width SD 61.3 fl (35.1-43.9); Red Blood Count 7.71 M/mm3 (4.2-5.4)
[2018-03-21 13:36] LABS: Absolute Nucleated RBC Count 0.17 10^3/uL (0-5); NRBC Flagged by Analyzer 1.9 % (0-5)
--- NOTE | 2018-03-21 14:10 | HP.PCM_ITS ---
Problem List (1) CHF exacerbation Status: Acute Qualifiers: (2) COPD (chronic obstructive pulmonary disease) Status: Chronic Qualifiers: Emphysema type: unspecified (3) Hypothyroidism Status: Chronic Qualifiers: Hypothyroidism type: unspecified Qualified Code(s): E03.9 - Hypothyroidism, unspecified (4) Hypertension Status: Chronic Qualifiers: Hypertension type: essential hypertension Qualified Code(s): I10 - Essential (primary) hypertension (5) CKD (chronic kidney disease) stage 3, GFR 30-59 ml/min Status: Chronic (6) Morbid obesity with BMI of 60.0-69.9, adult Status: Chronic (7) Sleep apnea syndrome Status: Suspected Qualifiers: Sleep apnea type: unspecified type Qualified Code(s): G47.30 - Sleep apnea, unspecified History of Present Illness Date of Admission: 03/21/18 Chief Complaint: Progressive shortness of breath - 2 days The patient is a 52 year old F with past medical history of acute diastolic CHF, pulmonary hypertension, hypertension, COPD on 6 L of oxygen at home, recently discharged on 03/19/18 with acute on chronic diastolic CHF. Patient is reportedly set to have been eating bags of potato chips as well as drinking soda from the [employer] store right from her discharge. She is noncompliant with any of her medications, diet or appointments. Patient apparently appears not to be able to take care of herself. She lives with her 10-year-old granddaughter who helps to take care of her after school. She is reportedly said to have burnt her fingers recently whilst trying to cook. She was recently discharged from a halfway facility a month ago. She complains of some dizziness this morning when she woke up as well as a feeling of going to pass out. She did not pass out. She was found by the EMS without oxygen. Patient oxygen level was found to be low on arrival, 89% without oxygen. Her vitals in the ED were temperature of 97.9F, heart rate 84, blood pressure 135/94, respiratory rate of 20, SPO2 is 89% on room air, improved to 94% on 6 L of oxygen. Her admitting blood work showed WBC count of 9.0, hemoglobin 15.4, platelet count 157, sodium 139, potassium 4.3, chloride 97, bicarbonate 38, BUN 55, creatinine 1.50 which appears to be her baseline. BNpep was 1555.6, admitted with a BNP above 952. Imaging chest x-ray reports mild stable increased markings at the bases, cardiomegaly, prominence of central pulmonary arteries suggestive of pulmonary hypertension Discussed patient is total care as well as her noncompliance with medications and follow-ups, recommended the patient to be admitted and discharged to a halfway facility because she cannot take care of herself. Patient agrees to discharged to a halfway facility. Past Medical History Past Medical History (Chronic Problems): Chronic Problems COPD (chronic obstructive pulmonary disease) (Chronic) Hypothyroidism (Chronic) Lymphedema (Chronic) Hypertension (Chronic) CKD (chronic kidney disease) stage 3, GFR 30-59 ml/min (Chronic) Morbid obesity with BMI of 60.0-69.9, adult (Chronic) Transaminitis (Chronic) Allergies aspirin [From Percodan] Allergy (Verified 03/21/18 11:44) Hives oxycodone HCl [From Percodan] Allergy (Verified 03/21/18 11:44) Hives oxycodone terephthalate [From Percodan] Allergy (Verified 03/21/18 11:44) Hives Sulfa (Sulfonamide Antibiotics) Allergy (Verified 03/21/18 11:44) Hives cefuroxime Adverse Reaction (Verified 03/21/18 11:44) Unknown Cephalosporins Adverse Reaction (Verified 03/21/18 11:44) Vomiting meperidine HCl [From Demerol] Adverse Reaction (Verified 03/21/18 11:44) Vomiting NSAIDS (Non-Steroidal Anti-Inflamma Adverse Reaction (Verified 03/21/18 11:44) Unknown oxycodone [Oxycodone] Adverse Reaction (Verified 03/21/18 11:44) Rash Home Medications: Ambulatory Orders Medication Instructions Recorded Albuterol Inhaler [Ventolin Hfa] 1 - 2 puff INHALATION Q4H PRN PRN 11/28/16 Cholecalciferol (Vitamin D3) 50,000 unit PO TH 11/28/16 [Vitamin D3] Folic Acid 1 mg PO DAILY 11/28/16 Gabapentin [Neurontin] 300 mg PO BIDCM 11/28/16 Levothyroxine [Synthroid] 25 mcg PO DAILY 11/28/16 Oxybutynin [Ditropan] 5 mg PO DAILY 11/28/16 Venlafaxine HCl [Venlafaxine HCl 150 mg PO DAILY 11/28/16 ER] Hydroxyzine HCl 10 mg PO TID 06/13/17 Multivitamin with Iron [Tab-A-Jessica 1 tab PO DAILY 06/13/17 with Iron] Atorvastatin Calcium [Lipitor] 40 mg PO QHS 01/07/18 Melatonin 3 mg PO QHS #30 tablet 03/19/18 Acetaminophen [Tylenol Extra 1,000 mg PO Q6H PRN PRN 03/21/18 Strength] Apixaban [Eliquis] 5 mg PO 0800,199903/21/18 Aspirin [Aspirin, Baby] 81 mg PO DAILY 03/21/18 Bumetanide [Bumex] 4 mg PO BID 03/21/18 Buspirone HCl 7.5 mg PO BID 03/21/18 Loratadine 10 mg PO DAILY PRN PRN 03/21/18 Losartan Potassium 50 mg PO DAILY 03/21/18 Metoprolol Tartrate [Lopressor 25 mg PO BID 03/21/18 (beta vineet)] Surgical History: cholecystectomy, - - 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 Maternal History Items: - - Denies known cardiac history. Review of Systems Constitutional: Reports: Fatigue. Denies: Anorexia, Chills, Fever, Weakness, Weight Change Eyes: Denies: Blurred vision, Cataracts, Conjunctivae Inflammation, Pain, Redness HEENT: Denies: Difficulty Hearing, Difficulty Swallowing, Head Aches, Hearing Changes, Sinus Congestion, Sinus Drainage Cardiovascular: Reports: Chest Pressure, Light Headedness, Orthopnea. Denies: Chest Pain, Claudication, Chest Tightness, Palpitations, Paroxysmal Noc. Dyspnea Respiratory: Reports: Shortness of Breath, Shortness of breath at rest, Shortness of breath upon exertion. Denies: Cough, Sputum production Gastrointestinal: Denies: Abdominal Pain, Hematemesis, Hematochezia, Nausea, Vomiting Genitourinary: Denies: Dysuria, Frequency, Incontinence, Nocturia Musculoskeletal: Denies: Joint Pain, Joint stiffness, Joint swelling, Joint Tenderness Skin: Denies: Rash, Wounds Neurological: Denies: Numbness, Tingling, Focal weakness Psychiatric: Denies: Anxiety, Depression, Homicidal Ideations, Suicidal Sy ations Hematologic/ Lymphatic: Denies: Easy Bruising, Easy Bleeding VTE Information - Inpt Only VTE Present on Admission: No VTE Pharm Prophylaxis ordered?: Yes - Physical Exam General: Alert, Oriented x3, Cooperative, No apparent distress HEENT: Atraumatic, PERRLA, EOMI, Normocephalic Oral: Moist Mucosa Neck: Supple, Negative Carotid Bruits, JVD, Right Lungs: Normal air movement, Diminished, Rales - in bilateral lung zones Cardiovascular: Regular rate, Regular Rhythm, Normal S1, Normal S2, No murmurs Abdomen: Bowel Sounds Present, Soft, Non Tender Extremities: No edema, Capillary Refill Less than 3 Seconds Skin: No rashes, No breakdown Musculoskeletal: No Tenderness to Palpation of Joints or Extremities Neurological: Cranial nerves II-XII grossly intact Psych/Mental Status: Normal Affect, Appropriate Vital Signs Temp Pulse Resp BP Pulse Ox 97.9 F 78 17 135/94 H 89 03/21/18 11:41 03/21/18 12:25 03/21/18 12:25 03/21/18 11:41 03/21/18 11:41 Oxygen Delivery Method Room Air Weight: 136.078 kg Body Mass Index (BMI) 48.4 Laboratory Tests Past 24 Hrs 03/21/18 03/21/18 03/21/18 12:32 12:32 12:32 WBC 9.0 RBC 7.71 H Hgb 15.4 H Hct 56.8 H MCV 73.7 L MCH 20.0 L MCHC 27.1 L RDW 23.5 H RDW Differential 61.3 H Plt Count 157 Immature Gran % (Auto) 0.100 Neut % (Auto) 69.4 Lymph % (Auto) 15.7 L [place] % (Auto) 13.4 H Eos % (Auto) 1.4 Baso % (Auto) 0.0 Absolute Neuts (auto) 6.3 Absolute Lymphs (auto) 1.42 Total Counted Not Reportable Nucleated RBC % 1.9 Diff Path Review May foll Anisocytosis 1+ Microcytosis 2+ Absolute Retic 0.17 Sodium 139 Potassium 4.3 Chloride 97 L Carbon Dioxide 38.0 H Anion Gap 4 L BUN 55 H Creatinine 1.50 H Estim Creat Clear Calc 40.14 Est GFR (MDRD) Af Amer 46 L Est GFR (MDRD) Non-Af 38 L BUN/Creatinine Ratio 36.7 H Glucose 117 H Calcium 9.1 Troponin I 0.016 B-Natriuretic Peptide 1555.6 H Assessment/Plan All Active Problems CHF exacerbation (Acute) Acute kidney failure (Acute) Bacteremia due to Streptococcus (Resolved) Pulmonary embolus (Resolved) Viridans streptococci infection (Resolved) 52 year old F with past medical history of acute diastolic CHF, pulmonary hypertension, hypertension, COPD on 6 L of oxygen at home, recently discharged on 03/19/18 with acute on chronic diastolic CHF comes back with progressive shortness of breath, noncompliance with oxygen, diet or medications. 1. Acute on chronic diastolic CHF/pulmonary hypertension secondary to dietary noncompliance, patient was recently admitted and discharged with acute on chronic diastolic CHF, Family admits to dietary indiscretion, noncompliance with fluid restriction Plan: Admit to PCU, IV Lasix 40mg daily, continue with home Bumex CHF protocol, strict I's and O's, daily weights 2. COPD with chronic respiratory failure, on 6 L of oxygen, in acute exacerbation patient was found earlier to be hypoxic and feeling she was going to pass out because she did not wear her oxygen, educated on compliance with oxygen Here with oxygen therapy, breathing treatments as needed 3. CKD stage III, creatinine appears to be at her baseline 4. History of PE, on Eliquis 5. CAD on aspirin and statin 6. Depression/anxiety, on BuSpar, Effexor, hydroxyzine 7. DVT prophylaxis -on apixaban for history of PE Patient and her sister are agreeable for patient to be placed in a halfway facility as she cannot take care of herself. She is wheelchair-bound. She is relying on a 10-year-old granddaughter to assist her with her needs. If she changes her mind and insists on being discharged home, will recommend an APS referral. Code Visit Inpatient E&M: 35244 Init Hosp L3
--- NOTE | 2018-03-21 14:11 | ED.VISSUMM ---
- ER Visit Summary Date of Service: 03/21/18 Chief Complaint: [Shortness of breath] History of Present Illness: The patient is a 52 F [presents the emergency room complaint shortness of breath that started today. Patient has a history of CHF. She has had a cough however mostly nonproductive. Patient normally wears 6 L of O2 at home. Patient states initially when she woke up today she did not feel too badly but progressively got more short of breath and felt lightheaded and dizzy and presyncopal. Patient states she was recently admitted to the hospital for similar complaints. Patient has a history of CHF, COPD, hypertension, chronic kidney disease, and hypothyroidism. Patient's sister is also here with her states that patient typically not compliant with her meds and does not want to see her doctors. It is felt that patient can no longer care for herself at home. On EMS arrival patient was without her home O2 and her O2 sat was in the low 80s. Patient denies any chest pain.] Physical Examination: [HEENT-PERRLA, EOMI. Cranial nerves II through XII grossly intact. TMs clear. Mucous membranes moist. No adenopathy. Cardiovascular-regular rate and rhythm without murmur or ectopy Lungs-diminished breath sounds bilaterally with few rales noted in the bases. Patient is mildly tachypneic. No accessory muscle use or retractions. Abdomen-normoactive bowel sounds, soft, nontender, no rebound or rigidity, no peritoneal signs. Extremities-intact ?4, normal range of motion, normal pulses, atraumatic. +1 edema both lower extremities.] Test Results: [EKG obtained on arrival shows sinus rhythm with a ventricular rate 79 bpm with a right bundle branch block and nonspecific ST changes. CBC with differential showed a white count of 14,000, hemoglobin 13.8, hematocrit 42, placed 298. Chemistries unremarkable. BUN was 55 and creatinine 1.5. Troponin was 0.016. BNP was 1555. Chest x-ray showed some cardiomegaly and pulmonary congestion.] Emergency Department Course and Treatment: [Received Lasix 80 mg IV.] Treatment Plan: [Admit for diuresis and possible placement to extended care facility] Disposition: [Admit] Impression: [CHF exacerbation Generalized weakness Failure to thrive] This note was generated with [employer] dictation software. It may contain incorrect words, spelling, and punctuation that were not noted in review of the chart prior to signing ED Disposition - Plan for ED Patient: Referrals: Brian Thao MD [Primary Care Provider] -
--- NOTE | 2018-03-21 14:34 | ED.RN ---
PT WET THE BED. PT HAD DIFFICULTY ROLLING FROM SIDE TO SIDE FOR BED CHANGE. WHILE CLEANING PT LARGE FIELD OF YEAST WAS FOUND IN HER GROIN FOLDS AND BELOW HER ABD FOLD. DR CONSULTED ON CATHETER PLACEMENT RELATED OF INABILITY OF AMBULATE AND INCONTINENCE. ORDER WAS OBTAINED AND CATHETER WAS PLACE WITH THE ASSISTANCE OF 2 OTHER STAFF. URINE SENT TO LAB AND ORDER OBTAINED FOR [facility]. HOSPITALIST UPDATE ON FINDINGS. Suzi KEATING RN [id number]
[2018-03-21] MEDS: Acetaminophen 325 MG Tablet 650 MG PO ×2 (14:54→16:15)
[2018-03-21] MEDS: Furosemide 100 MG/10 ML Vial 80 MG IV (14:55)
[2018-03-21] MEDS: Gabapentin 300 MG Capsule PO (16:22)
[2018-03-21 16:36] LABS: Bacteria 0 SEEN /hpf (None Seen); Mucous, Urine 0 SEEN /hpf (<or=2+); Squamous Epithelial Cells - UA 0 SEEN /hpf (5-10); White Blood Cells 0 SEEN /hpf (0-5)
[2018-03-21 17:12] LABS: Color, Urine Straw (Yellow); Glucose, Dipstick Normal (Normal); Ketone-Dipstick Negative (Negative); Leukocyte Esterase-Dipstick Negative /ul (Negative); Nitrite-Dipstick Negative (Negative); Occult Blood-Urine 10 /ul (Negative); Protein-Dipstick Negative (Negative); Urine Bilirubin Dipstick Negative (Negative); Urine Clarity Clear (Clear); Urine Urobilinogen Normal (Normal); Urine pH 6.5 (5.0 - 8.0)
[2018-03-21 17:20] LABS: Red Blood Cells-Urine 0-5 SEEN /hpf (0-5)
[2018-03-21] MEDS: APIXABAN 5 MG TABLET PO (17:57)
[2018-03-21] MEDS: busPIRone 15 MG TABLET 7.5 MG PO (22:18)
[2018-03-21] MEDS: MELATONIN 3 MG TABLET PO (22:18)
[2018-03-21] MEDS: hydrOXYzine 10 MG Tablet PO (22:18)
[2018-03-21] MEDS: Nystatin Powder 15gm Bottle 1 APPLIC TOPICAL (22:19)
[2018-03-21] MEDS: Atorvastatin Calcium 40 MG Tablet PO (22:19)
[2018-03-21] MEDS: Metoprolol Tartrate 25 MG Tablet PO (22:19)
[2018-03-22] VITALS (17 sets, daily range): BP systolic 118–124; BP diastolic 65–85; PULSE 77–97; RESP 12–18; TEMP 36.3–37.2; O2SAT 14–95
[2018-03-22 05:55] LABS: Anion Gap 6 (5-15); BUN 46 mg/dL (7-18); BUN/Creat Ratio 39.7 RATIO (10-20); Calcium,Total 8.5 mg/dL (8.5-10.1); Chloride 99 mmol/L (98-107); Creatinine, Serum 1.16 mg/dL (0.55-1.02); EST Glomerular Filtration Rate 52 mL/min (>60); Est Glom Filt Rate - Afr Amer 62 mL/min (>60); Glucose 103 mg/dL (74-106); Potassium 3.8 mmol/L (3.5-5.1); Sodium Level 146 mmol/L (136-145)
[2018-03-22] MEDS: Nystatin Powder 15gm Bottle 1 APPLIC TOPICAL ×3 (06:17→21:50)
[2018-03-22] MEDS: Levothyroxine 25 MCG TABLET PO (06:17)
[2018-03-22] MEDS: hydrOXYzine 10 MG Tablet PO ×3 (06:17→21:47)
[2018-03-22] MEDS: Ipratropium/Albuterol Sulfate 3 ML AMPUL.NEB INHALATION ×4 (07:47→18:43)
[2018-03-22] MEDS: Acetaminophen 325 MG Tablet 650 MG PO (09:07)
[2018-03-22] MEDS: APIXABAN 5 MG TABLET PO ×2 (09:17→20:27)
[2018-03-22] MEDS: Metoprolol Tartrate 25 MG Tablet PO ×2 (09:17→21:51)
[2018-03-22] MEDS: busPIRone 15 MG TABLET 7.5 MG PO ×2 (09:18→21:48)
[2018-03-22] MEDS: Furosemide 40 MG Tablet PO (09:18)
[2018-03-22] MEDS: Folic Acid 1 MG Tablet PO (09:18)
[2018-03-22] MEDS: Venlafaxine XR 150 MG Capsule PO (09:18)
[2018-03-22] MEDS: Aspirin 81 MG TAB.CHEW PO (09:18)
[2018-03-22] MEDS: Gabapentin 300 MG Capsule PO ×2 (09:18→17:00)
--- NOTE | 2018-03-22 09:18 | CASEMGMT ---
SW received referral for placement. SW met with patient, introduced self and role at [facility]. SW asked patient about placement. She said her sister was wanting that. SW asked her if she was in agreement and she said not really , but she has been to a place in [place]. She told SW to talk with her sister. SW gets the impression patient will do whatever her sister would like her to do. SW called patient's sister and left her a voice mail requesting a return call. Stephanie BOUDREAUX MSW
--- NOTE | 2018-03-22 11:26 | NS ---
Lengthy discussion w/ pt regarding diet and lifestyle at home. Pt is tearful at times, cites grandchildren as motivation to make changes and prevent further hospitalizations. Pt admits to diet non-compliance prior to admission and knows that changes are needed to improve health. Pt feels limited in diet choices because daughter does grocery shopping at home. However, pt was very receptive to diet education this date, reviewed handouts in detail w/ RD and asked appropriate questions. Pt states she would be interested in follow-up appointments w/ RD on an outpatient basis for ongoing education, accountability, and emotional support. Information regarding [facility] given to pt. Explained she needs a referral from PCP for program; pt states it is difficult to get appointment w/ Dr. Thao but would try to get referral after discharge. See Dietitian Assessment for further details. Pt and family would benefit from additional diet education and teaching prior to discharge. Please call clinical dietitian w/ further questions. Suzi Etienne MS, RDN, LD
[2018-03-22 12:33] LABS: Pathologist Review Reviewed
--- NOTE | 2018-03-22 12:40 | PCM.PROGNOTE ---
<Mitchell Duran - Last Filed: 03/22/18 12:40> Subjective: Pt resting comfortably in bed, she is somewhat tearful and anxious this AM. She initially states that she doesnt want to go to a group home, however when we discussed the risks of going home when she needs more rehab she was agreeable. She states she is almost back to her baseline. She denies cough. She has mild SOB. LE edema has significantly improved. - Physical Exam General: Alert, Oriented x3, Cooperative HEENT: Atraumatic, PERRLA, EOMI, Normocephalic Neck: Supple, No JVD, Negative Carotid Bruits Lungs: Diminished, Wheezes Cardiovascular: Regular rate, No murmurs Abdomen: Bowel Sounds Present, Soft, Non Tender Extremities: Capillary Refill Less than 3 Seconds, Edema Skin: No rashes, No breakdown Musculoskeletal: No Tenderness to Palpation of Joints or Extremities Neurological: Cranial nerves II-XII grossly intact Psych/Mental Status: Anxious, Alert and oriented to time, place, person, mood and affect Vital Signs Temp Pulse Resp BP Pulse Ox 97.4 F L 97 12 124/85 H 95 03/22/18 09:11 03/22/18 11:20 03/22/18 11:20 03/22/18 09:11 03/22/18 11:20 Oxygen Flow Rate (L/min) 6 Oxygen Delivery Method Nasal Cannula Weight: 348 lb 12.34 oz Body Mass Index (BMI) 57.2 Intake and Output for Last 24 Hours 03/20/18 03/21/18 03/22/18 23:59 23:59 23:59 Intake Total 510 / 510 Output Total 3925 / 3925 1275 / 1275 Balance -3415 / -3415 -1275 / -1275 Laboratory Tests Past 24 Hrs 03/21/18 03/21/18 03/21/18 12:32 12:32 12:32 WBC 9.0 RBC 7.71 H Hgb 15.4 H Hct 56.8 H MCV 73.7 L MCH 20.0 L MCHC 27.1 L RDW 23.5 H RDW Differential 61.3 H Plt Count 157 Immature Gran % (Auto) 0.100 Neut % (Auto) 69.4 Lymph % (Auto) 15.7 L [place] % (Auto) 13.4 H Eos % (Auto) 1.4 Baso % (Auto) 0.0 Absolute Neuts (auto) 6.3 Absolute Lymphs (auto) 1.42 Total Counted Not Reportable Nucleated RBC % 1.9 Diff Path Review Reviewed Anisocytosis 1+ Microcytosis 2+ Absolute Retic 0.17 Sodium 139 Potassium 4.3 Chloride 97 L Carbon Dioxide 38.0 H Anion Gap 4 L BUN 55 H Creatinine 1.50 H Estim Creat Clear Calc 40.14 Est GFR (MDRD) Af Amer 46 L Est GFR (MDRD) Non-Af 38 L BUN/Creatinine Ratio 36.7 H Glucose 117 H Calcium 9.1 Troponin I 0.016 B-Natriuretic Peptide 1555.6 H Urine Color Urine Clarity Urine pH Ur Specific [place] Urine Protein Urine Glucose (UA) Urine Ketones Urine Occult Blood Urine Nitrite Urine Bilirubin Urine Urobilinogen Ur Leukocyte Esterase Urine RBC Urine WBC Ur Squamous Epith Cells Urine Bacteria Urine Mucus 03/21/18 03/22/18 16:25 05:20 WBC RBC Hgb Hct MCV MCH MCHC RDW RDW Differential Plt Count Immature Gran % (Auto) Neut % (Auto) Lymph % (Auto) [place] % (Auto) Eos % (Auto) Baso % (Auto) Absolute Neuts (auto) Absolute Lymphs (auto) Total Counted Nucleated RBC % Diff Path Review Anisocytosis Microcytosis Absolute Retic Sodium 146 H Potassium 3.8 Chloride 99 Carbon Dioxide 41.0 H Anion Gap 6 BUN 46 H Creatinine 1.16 H Estim Creat Clear Calc 51.90 Est GFR (MDRD) Af Amer 62 Est GFR (MDRD) Non-Af 52 L BUN/Creatinine Ratio 39.7 H Glucose 103 Calcium 8.5 Troponin I B-Natriuretic Peptide Urine Color Straw Urine Clarity Clear Urine pH 6.5 Ur Specific [place] 1.010 Urine Protein Negative Urine Glucose (UA) Normal Urine Ketones Negative Urine Occult Blood 10 H Urine Nitrite Negative Urine Bilirubin Negative Urine Urobilinogen Normal Ur Leukocyte Esterase Negative Urine RBC 0-5 SEEN Urine WBC 0 SEEN Ur Squamous Epith Cells 0 SEEN Urine Bacteria 0 SEEN Urine Mucus 0 SEEN Medical Necessity - Tobacco Use Smoking Status: Current every day smoker Tobacco Use: Non-smoker Assessment/Plan All Active Problems CHF exacerbation (Acute) 1. Acute on chronic diastolic CHF exacerbation complicated by pulmonary htn and dietary indiscretion - CO2 is going up and she has had significant diuresis - will change to oral lasix. 2. Chronic hypoxic respiratory failure - baseline is 6lpm. At baseline. 3. CKDIII - stable 4. Hx PE - eliquis 5. CAD - aspiring statin 6. Depression/Anxiety - continue home regiment 7. intertrigo - nystatin topical 8. Debility and not taking care of herself at home - PTOT, placement 9. Morbid obesity DC planning: SW is discussing locations with sister for placement DVT ppx: eliquis This patient was seen by Mitchell Duarn PA-C under the supervision of Dr. Velasquez <Evelyn Velasquez E - Last Filed: 03/22/18 14:41> - Physical Exam Vital Signs Temp Pulse Resp BP Pulse Ox 97.4 F L 97 12 124/85 H 95 03/22/18 09:11 03/22/18 11:20 03/22/18 11:20 03/22/18 09:11 03/22/18 11:20 Oxygen Flow Rate (L/min) 6 Oxygen Delivery Method Nasal Cannula Weight: 348 lb 12.34 oz Body Mass Index (BMI) 57.2 Intake and Output for Last 24 Hours 03/20/18 03/21/18 03/22/18 23:59 23:59 23:59 Intake Total 510 / 510 250 / 250 Output Total 3925 / 3925 2975 / 2975 Balance -3415 / -3415 -2725 / -2725 Laboratory Tests Past 24 Hrs 03/21/18 03/21/18 03/22/18 12:32 16:25 05:20 Diff Path Review Reviewed Sodium 146 H Potassium 3.8 Chloride 99 Carbon Dioxide 41.0 H Anion Gap 6 BUN 46 H Creatinine 1.16 H Estim Creat Clear Calc 51.90 Est GFR (MDRD) Af Amer 62 Est GFR (MDRD) Non-Af 52 L BUN/Creatinine Ratio 39.7 H Glucose 103 Calcium 8.5 Urine Color Straw Urine Clarity Clear Urine pH 6.5 Ur Specific [place] 1.010 Urine Protein Negative Urine Glucose (UA) Normal Urine Ketones Negative Urine Occult Blood 10 H Urine Nitrite Negative Urine Bilirubin Negative Urine Urobilinogen Normal Ur Leukocyte Esterase Negative Urine RBC 0-5 SEEN Urine WBC 0 SEEN Ur Squamous Epith Cells 0 SEEN Urine Bacteria 0 SEEN Urine Mucus 0 SEEN Assessment/Plan Hospitalist note: I am seeing this patient in conjunction with Mitchell Duran. I independently seen and examined the patient. Progress note above, laboratory data and imaging studies reviewed and I concur with the above plan. Patient seen and examined this morning. She reports that her breathing is getting better, leg edema slightly improved. Still complaining of cough with sputum. Patient was discharged from the hospital 2 days ago. She lives at home and she has a granddaughter who takes care of her. Pulse ox is maintained on 6 L which is her baseline at home. Her other vital signs are stable - Physical Exam General: Alert, Oriented x3, Cooperative, short of breath. HEENT: Atraumatic, PERRLA, EOMI. Neck: Supple, No JVD, Negative Carotid Bruits, Trachea Midline, Thyroid Normal. Lungs: Decreased sounds bilateral, bilateral rhonchi, scattered wheezes, No rales. Cardiovascular: Regular rate, Regular Rhythm, Normal S1, Normal S2, PMI Normal. Abdomen: Bowel Sounds Present, Soft, Non Tender, Non-Distended, No Hepato-splenomegaly. Extremities: No clubbing, No cyanosis, ++ edema Skin: No rashes, No breakdown Neurological: Neuro grossly intact Vital Signs are stable. Assessment and plan: #1 acute on chronic diastolic CHF: She was not IV Lasix, started on p.o. Lasix today. Symptoms improved, pulse ox is maintained on 6 L which is her baseline at home. Kidney function remains stable, actually creatinine improved. Her BNP was elevated but it is chronically elevated. EKG revealed no acute ischemic changes. Troponin was negative. Plan to continue p.o. Lasix, continue metoprolol, placement to half-way facility. #2 chronic hypoxic respiratory failure: On home oxygen at 6 L and she is on 6 L at this time. Plan as above. #3 other chronic medical problems: Stable, continue current medications as above. This note was generated with [employer] software. It may contain incorrect words, spelling, and punctuation that were not noted in checking the note before signing. Code Visit Inpatient E&M: 36819 Subs Hosp L2
--- NOTE | 2018-03-22 13:30 | CASEMGMT ---
SW called patient's sister to discuss d/c plan. She said patient has been to [facility] in the past and this is where she would prefer. She would be able to see her every day as she works in [place]. FLOR spoke with patient and she was okay with [facility]. FLOR called [facility] and spoke with Nupur regarding referral and also faxed over information. Await acceptance and pre-cert. Plan: [facility] pending their acceptance and insurance approval. Stephanie BOUDREAUX MSW
--- NOTE | 2018-03-22 15:28 | CASEMGMT ---
[facility] has accepted patient and Nupur started her pre-cert. Plan: [facility] pending insurance approval. Stephanie MCLAUGHLIN
[2018-03-22] MEDS: traMADol 50 MG Tablet PO (15:54)
[2018-03-22] MEDS: Atorvastatin Calcium 40 MG Tablet PO (21:49)
[2018-03-22] MEDS: MELATONIN 3 MG TABLET PO (21:51)
[2018-03-23] VITALS (12 sets, daily range): BP systolic 119–136; BP diastolic 70–96; PULSE 79–92; RESP 16–18; TEMP 36.3–37.1; O2SAT 91–93
[2018-03-23] MEDS: hydrOXYzine 10 MG Tablet PO ×2 (05:19→13:50)
[2018-03-23] MEDS: Nystatin Powder 15gm Bottle 1 APPLIC TOPICAL ×2 (05:20→13:50)
[2018-03-23] MEDS: Levothyroxine 25 MCG TABLET PO (05:20)
[2018-03-23] MEDS: Acetaminophen 325 MG Tablet 650 MG PO ×2 (05:21→10:55)
[2018-03-23] MEDS: Ipratropium/Albuterol Sulfate 3 ML AMPUL.NEB INHALATION ×3 (06:48→14:38)
[2018-03-23 07:08] LABS: Anion Gap 7 (5-15); BUN 33 mg/dL (7-18); BUN/Creat Ratio 30.3 RATIO (10-20); Calcium,Total 8.4 mg/dL (8.5-10.1); Chloride 98 mmol/L (98-107); Creatinine, Serum 1.09 mg/dL (0.55-1.02); EST Glomerular Filtration Rate 55 mL/min (>60); Est Glom Filt Rate - Afr Amer 67 mL/min (>60); Estimated Creatinine Clearance 55.23 ml/min; Glucose 120 mg/dL (74-106); Potassium 3.9 mmol/L (3.5-5.1); Sodium Level 146 mmol/L (136-145)
[2018-03-23 07:14] LABS: Absolute Lymphocyte Count 1.29 X10^3/ul (0.83-4.51); Absolute Neutrophil Count 7.2 X10^3/uL (2.0-7.7); Basophil# 0.01 X10^3/uL; Basophil% 0.1 % (0-1); Eosinophil# 0.25 X10^3/uL; Eosinophils% 2.5 % (0-5); Hemoglobin 14.8 g/dl (12.0-15.0); Lymphocyte # 1.29 X10^3/ul (4.0); Lymphocyte % 13.1 % (19-41); Mean Corp Hgb Conc 26.4 g/gl (32-36); Mean Corpuscular Hgb 19.8 pg (27.0-32.0); Mean Corpuscular Volume 74.8 fL (81-99); Monocyte# 1.05 X10^3/uL; Monocyte% 10.7 % (0-10); Neutrophil # 7.23 X10^3/uL (2.7-7.7); Neutrophil % 73.5 % (47-70); Platelet Count 127 K/mm3 (150-450); RBC Distribution Width CV 23.4 % (11.6-14.6); RBC Distribution Width SD 61.2 fl (35.1-43.9); White Blood Count 9.8 K/mm3 (4.4-11.0)
[2018-03-23 07:22] LABS: Differential Indicated SCAN CRITERIA MET; POSITIVE COUNT NO; POSITIVE DIFFERENTIAL NO; POSITIVE MORPHOLOGY YES; Red Blood Count 7.49 M/mm3 (4.2-5.4)
[2018-03-23 07:28] LABS: Absolute Nucleated RBC Count 0.02 10^3/uL (0-5); NRBC Flagged by Analyzer 0.2 % (0-5)
[2018-03-23 07:30] LABS: Differential Comment SCAN
[2018-03-23 07:31] LABS: Platelet Estimate SLT DEC (ADEQ)
[2018-03-23 07:32] LABS: Anisocytosis 1+; Macrocytosis 1+; Platelet Morphology LARGE; Polychromasia 1+
[2018-03-23] MEDS: traMADol 50 MG Tablet PO ×2 (08:11→16:31)
[2018-03-23] MEDS: Gabapentin 300 MG Capsule PO ×2 (08:12→16:32)
[2018-03-23] MEDS: APIXABAN 5 MG TABLET PO (08:12)
--- NOTE | 2018-03-23 08:13 | PCM.PROGNOTE ---
Subjective: Chief complaint: Follow-up after admission for acute on chronic diastolic CHF. Patient seen and examined. No acute events overnight. Today, she states that her breathing is stable at her baseline and she has been maintaining pulse ox on 6 L which is her baseline at home. She is complaining of cough with minimal sputum. No chest pain. Her vital signs stable, pulse ox is 93% on 6 L. - Physical Exam General: Alert, Oriented x3, Cooperative, - - Minimally short of breath. HEENT: Atraumatic, PERRLA, EOMI, Normocephalic Oral: Moist Mucosa, No Gingival or Mucosal Lesions/ Ulcerations Neck: Supple, No JVD, Negative Carotid Bruits, Trachea Midline, Thyroid Normal Size and Texture Lungs: Clear to auscultation, No rhonchi, No wheeze, No rales, Diminished, - Cardiovascular: Regular rate, Regular Rhythm, Normal S1, Normal S2, PMI Normal Abdomen: Bowel Sounds Present, Soft, Non Tender, Non-Distended, Obese Extremities: No clubbing, No cyanosis, Edema - + Edema. Skin: No rashes, No breakdown Lymphatic: No Cervical, Supraclavicular, or Inguinal Adenopathy Neurological: Cranial nerves II-XII grossly intact, Neuro grossly intact Psych/Mental Status: Normal Affect, Appropriate, Alert and oriented to time, place, person, mood and affect Vital Signs Temp Pulse Resp BP Pulse Ox 98 F 81 18 131/79 H 93 03/23/18 05:14 03/23/18 07:00 03/23/18 05:14 03/23/18 05:14 03/23/18 05:14 Oxygen Flow Rate (L/min) 6 Oxygen Delivery Method Nasal Cannula Weight: 348 lb 12.34 oz Body Mass Index (BMI) 57.2 Intake and Output for Last 24 Hours 03/21/18 03/22/18 03/23/18 23:59 23:59 23:59 Intake Total 510 / 510 370 / 370 1060 / 1060 Output Total 3925 / 3925 2975 / 2975 2525 / 2525 Balance -3415 / -3415 -2605 / -2605 -1465 / -1465 Laboratory Tests Past 24 Hrs 03/21/18 03/23/18 03/23/18 12:32 06:10 06:10 WBC 9.8 RBC 7.49 H Hgb 14.8 Hct 56.0 H MCV 74.8 L MCH 19.8 L MCHC 26.4 L RDW 23.4 H RDW Differential 61.2 H Plt Count 127 L Immature Gran % (Auto) 0.100 Neut % (Auto) 73.5 H Lymph % (Auto) 13.1 L [place] % (Auto) 10.7 H Eos % (Auto) 2.5 Baso % (Auto) 0.1 Absolute Neuts (auto) 7.2 Absolute Lymphs (auto) 1.29 Total Counted Not Reportable Nucleated RBC % 0.2 Differential Comment SCAN Diff Path Review Reviewed Platelet Estimate SLT DEC Plt Morphology Comment LARGE Polychromasia 1+ Anisocytosis 1+ Macrocytosis 1+ Absolute Retic 0.02 Sodium 146 H Potassium 3.9 Chloride 98 Carbon Dioxide 41.0 H Anion Gap 7 BUN 33 H Creatinine 1.09 H Estim Creat Clear Calc 55.23 Est GFR (MDRD) Af Amer 67 Est GFR (MDRD) Non-Af 55 L BUN/Creatinine Ratio 30.3 H Glucose 120 H Calcium 8.4 L Medical Necessity - Tobacco Use Smoking Status: Current every day smoker Tobacco Use: Non-smoker Assessment/Plan All Active Problems CHF exacerbation (Acute) Hospitalist note: I am seeing this patient in conjunction with Mitchell Duran. I independently seen and examined the patient. Progress note above, laboratory data and imaging studies reviewed and I concur with the above plan. Patient seen and examined this morning. She reports that her breathing is getting better, leg edema slightly improved. Still complaining of cough with sputum. Patient was discharged from the hospital 2 days ago. She lives at home and she has a granddaughter who takes care of her. Pulse ox is maintained on 6 L which is her baseline at home. Her other vital signs are stable - Physical Exam General: Alert, Oriented x3, Cooperative, short of breath. HEENT: Atraumatic, PERRLA, EOMI. Neck: Supple, No JVD, Negative Carotid Bruits, Trachea Midline, Thyroid Normal. Lungs: Decreased sounds bilateral, bilateral rhonchi, scattered wheezes, No rales. Cardiovascular: Regular rate, Regular Rhythm, Normal S1, Normal S2, PMI Normal. Abdomen: Bowel Sounds Present, Soft, Non Tender, Non-Distended, No Hepato-splenomegaly. Extremities: No clubbing, No cyanosis, ++ edema Skin: No rashes, No breakdown Neurological: Neuro grossly intact Vital Signs are stable. Assessment and plan: #1 acute on chronic diastolic CHF: She was not IV Lasix, started on p.o. Lasix today. Symptoms improved, pulse ox is maintained on 6 L which is her baseline at home. Kidney function remains stable, actually creatinine improved. Her BNP was elevated but it is chronically elevated. EKG revealed no acute ischemic changes. Troponin was negative. Plan to continue p.o. Lasix, continue metoprolol, placement to senior living facility. #2 chronic hypoxic respiratory failure: On home oxygen at 6 L and she is on 6 L at this time. Plan as above. #3 other chronic medical problems: Stable, continue current medications as above. This note was generated with [employer] dictation software. It may contain incorrect words, spelling, and punctuation that were not noted in checking the note before signing.
[2018-03-23] MEDS: Metoprolol Tartrate 25 MG Tablet PO (10:47)
[2018-03-23] MEDS: Furosemide 40 MG Tablet PO (10:47)
[2018-03-23] MEDS: Venlafaxine XR 150 MG Capsule PO (10:48)
[2018-03-23] MEDS: busPIRone 15 MG TABLET 7.5 MG PO (10:48)
[2018-03-23] MEDS: Folic Acid 1 MG Tablet PO (10:48)
[2018-03-23] MEDS: Aspirin 81 MG TAB.CHEW PO (10:49)
[2018-03-23] MEDS: Losartan Potassium 50 MG Tablet PO (10:51)
[2018-03-23] MEDS: Tolterodine Tartrate 2 MG CAP.SA PO (10:51)
--- NOTE | 2018-03-23 13:32 | CASEMGMT ---
Received approval for patient to go to [facility]. SW notified physician, patient and RN. Once orders completed transport will be set up and orders faxed. Stephanie BOUDREAUX MSW
--- NOTE | 2018-03-23 13:49 | PCM.TXEXTCAR ---
- Diet 03/21/18 15:31 Diet: Cardiac/Low Cholesterol Food consistency:: Regular Liquid Consistency:: Regular/Thin Fluid restriction to less than 1500 cc daily. - Routine Orders/Code Status O2 Liters per Minute: 6 O2 Frequency: Continuous Keep PO Greater than or Equal to (%): 90 - Wound(s) BLE Wound Type: SCABS Posterior B/L Thighs Wound Type: Excoriated - Suggestions for Active Care Change Position every (hours): 3 Hours to sit in a chair: 2 Times a day to sit in chair: 3 - Therapies Weight Bearing: Weight bearing as tolerated Physical Therapy: Eval and Treat Occupational Therapy: Eval and Treat - Allergies/Procedures Done in Hospital Allergies/Adverse Reactions: Allergies aspirin [From Percodan] Allergy (Verified 03/21/18 11:44) Hives oxycodone HCl [From Percodan] Allergy (Verified 03/21/18 11:44) Hives oxycodone terephthalate [From Percodan] Allergy (Verified 03/21/18 11:44) Hives Sulfa (Sulfonamide Antibiotics) Allergy (Verified 03/21/18 11:44) Hives cefuroxime Adverse Reaction (Verified 03/21/18 11:44) Unknown Cephalosporins Adverse Reaction (Verified 03/21/18 11:44) Vomiting meperidine HCl [From Demerol] Adverse Reaction (Verified 03/21/18 11:44) Vomiting NSAIDS (Non-Steroidal Anti-Inflamma Adverse Reaction (Verified 03/21/18 11:44) Unknown oxycodone [Oxycodone] Adverse Reaction (Verified 03/21/18 11:44) Rash - Type of Care/Length of Stay Estimated LOS: Convalescent Care Less Than 30 days Type of Care Needed: Skilled Rehab Potential: Fair Prognosis: Fair - Additional Orders/Day of Discharge H&P will serve as current which was dated: 03/21/18 Day of Discharge: 03/23/18 - Dietary and Speech Recommendations Dietitian Recommendations/Changes: Rec cardiac/low cholesterol, low sodium diet w/ 1600cc fluid restriction. Will d/c Ensure Enlive w/ medpass-additional calories/fluid not appropriate at this time. Encouraged pt to follow-up w/ [facility] outpatient [facility] program for ongoing diet education. Pt appears to be motivated at this time for diet and lifestyle changes. - Follow Up Care Primary Care Physician: Brian Thao MD [Primary Care Provider] - Please follow up with your Primary Care Physician in: 1 WEEK.
--- NOTE | 2018-03-23 14:22 | CASEMGMT ---
Faxed orders to [facility]. Called [facility] and arranged for patient to get picked up at 530p via bariatric cot. SW notified RN, ward secretary, patient's sister, MARINE ENGINE MACHINIST who notified patient, and [facility]. Convalescent completed on . Plan: d/c to [facility] under intermediate level of care on a convalescent stay. [facility] transported via bariatric cot. Stephanie BOUDREAUX MSW
--- NOTE | 2018-03-23 15:59 | DS.PCM_ITS ---
Discharge Date and Diagnosis Date of Admission: 03/21/18 Date of Discharge: 03/23/18 - Primary Discharge Diagnosis #1 acute on chronic diastolic CHF with frequent admissions. #2 chronic hypoxic respiratory failure. - Secondary Discharge Diagnosis Chronic Problems COPD (chronic obstructive pulmonary disease) (Chronic) Hypothyroidism (Chronic) Lymphedema (Chronic) Hypertension (Chronic) CKD (chronic kidney disease) stage 3, GFR 30-59 ml/min (Chronic) Morbid obesity with BMI of 60.0-69.9, adult (Chronic) Transaminitis (Chronic) Hospital Course and Treatment Imaging Results: Clinical Impression(s) from Imaging Studies Chest X-Ray 03/21/18 12:10 IMPRESSION: Mild stable increased markings at the lung bases suggestive scarring. Cardiomegaly. Prominence of the central pulmonary arteries suggestive of pulmonary hypertension. Electronically Signed: Alvin Schmitt MD at 13:27 EST , Service support , Operations: None Summary of Care Provided: Patient seen and examined on the day of discharge and appeared to be stable to be discharged to correction facility. Her breathing remained stable, remains on 6 L of oxygen and leg edema improved. Other vital signs are stable. The patient is a 52 year old F admitted because of worsening shortness of breath, found to have acute on chronic diastolic CHF in context of history of chronic respiratory failure. Upon admission, patient was short of breath but her oxygen has been maintained on 6 L of oxygen which is his baseline at home. She has been frequently admitted for the same complaints and actually was discharged from the hospital couple of days before this admission. Patient has been living at home with her very young granddaughter who takes care of her. Patient is not able to ambulate and she has been sitting most of her times. She was treated with IV Lasix for diuresis. Her EKG revealed no acute ischemic changes. Troponin was negative. BNP was elevated. Her chest x-ray showed chronic findings, no acute changes. With IV diuresis, her leg edema significantly improved and her breathing as well. She remains on 6 L of oxygen. Since patient has been frequently admitted recently, not taking care of herself at home and she is dependent on the ground daughter who is 10 years old, patient was seen by PT OT and recommended placement to correction facility. Patient discharged to correction facility in a stable medical condition, discharged on Bumex 4 mg p.o. twice daily, continued on her other chronic home medications as well without any changes, instructed for fluid restriction less than 1500 cc daily, continued on oxygen at 6 L, recommended follow-up with PCP in 1 week. - Physical Exam General: Alert, Oriented x3, Cooperative, - - Minimally short of breath. HEENT: Atraumatic, PERRLA, EOMI, Normocephalic Oral: Moist Mucosa, No Gingival or Mucosal Lesions/ Ulcerations Neck: Supple, No JVD, Negative Carotid Bruits, Trachea Midline, Thyroid Normal Size and Texture Lungs: Clear to auscultation, No rhonchi, No wheeze, No rales, Diminished Cardiovascular: Regular rate, Regular Rhythm, Normal S1, Normal S2 Abdomen: Bowel Sounds Present, Soft, Non Tender, Non-Distended, Obese Extremities: No clubbing, No cyanosis, Edema Skin: No rashes, No breakdown Lymphatic: No Cervical, Supraclavicular, or Inguinal Adenopathy Neurological: Cranial nerves II-XII grossly intact, Neuro grossly intact Psych/Mental Status: Normal Affect, Appropriate Vital Signs Temp Pulse Resp BP Pulse Ox 98.0 F 84 18 124/82 H 93 03/23/18 13:45 03/23/18 14:38 03/23/18 14:38 03/23/18 13:45 03/23/18 13:45 Oxygen Flow Rate (L/min) 6 Oxygen Delivery Method Nasal Cannula Weight: 348 lb 12.34 oz Body Mass Index (BMI) 57.2 Intake and Output for Last 24 Hours 03/21/18 03/22/18 03/23/18 23:59 23:59 23:59 Intake Total 510 / 510 370 / 370 1060 / 1060 Output Total 3925 / 3925 2975 / 2975 3450 / 3450 Balance -3415 / -3415 -2605 / -2605 -2390 / -2390 Laboratory Tests Past 24 Hrs 03/23/18 03/23/18 06:10 06:10 WBC 9.8 RBC 7.49 H Hgb 14.8 Hct 56.0 H MCV 74.8 L MCH 19.8 L MCHC 26.4 L RDW 23.4 H RDW Differential 61.2 H Plt Count 127 L Immature Gran % (Auto) 0.100 Neut % (Auto) 73.5 H Lymph % (Auto) 13.1 L [place] % (Auto) 10.7 H Eos % (Auto) 2.5 Baso % (Auto) 0.1 Absolute Neuts (auto) 7.2 Absolute Lymphs (auto) 1.29 Total Counted Not Reportable Nucleated RBC % 0.2 Differential Comment SCAN Platelet Estimate SLT DEC Plt Morphology Comment LARGE Polychromasia 1+ Anisocytosis 1+ Macrocytosis 1+ Absolute Retic 0.02 Sodium 146 H Potassium 3.9 Chloride 98 Carbon Dioxide 41.0 H Anion Gap 7 BUN 33 H Creatinine 1.09 H Estim Creat Clear Calc 55.23 Est GFR (MDRD) Af Amer 67 Est GFR (MDRD) Non-Af 55 L BUN/Creatinine Ratio 30.3 H Glucose 120 H Calcium 8.4 L Home Medications: Medications to take at Discharge Albuterol Inhaler [Ventolin Hfa] 1 - 2 puff INHALATION Q4H PRN PRN 11/28/16 Cholecalciferol (Vitamin D3) [Vitamin D3] 50,000 unit PO TH 11/28/16 Folic Acid 1 mg PO DAILY 11/28/16 Gabapentin [Neurontin] 300 mg PO BIDCM 11/28/16 Levothyroxine [Synthroid] 25 mcg PO DAILY 11/28/16 Oxybutynin [Ditropan] 5 mg PO DAILY 11/28/16 Venlafaxine HCl [Venlafaxine HCl ER] 150 mg PO DAILY 11/28/16 Hydroxyzine HCl 10 mg PO TID 06/13/17 Multivitamin with Iron [Tab-A-Jessica with Iron] 1 tab PO DAILY 06/13/17 Atorvastatin Calcium [Lipitor] 40 mg PO QHS 01/07/18 Melatonin 3 mg PO QHS #30 tablet 03/19/18 Acetaminophen [Tylenol] 1,000 mg PO Q6H PRN PRN 03/21/18 Apixaban [Eliquis] 5 mg PO 0800,199903/21/18 Aspirin [Aspirin, Baby] 81 mg PO DAILY 03/21/18 Bumetanide [Bumex] 4 mg PO BID 03/21/18 Buspirone HCl 7.5 mg PO BID 03/21/18 Loratadine 10 mg PO DAILY PRN PRN 03/21/18 Losartan Potassium 50 mg PO DAILY 03/21/18 Metoprolol Tartrate [Lopressor (beta vineet)] 25 mg PO BID 03/21/18 Primary Care Physician: Brian Thao MD [Primary Care Provider] - Please follow up with your Primary Care Physician in: 1 WEEK. Disposition: [facility] facility Minutes spent on discharge:: 26 Patient Condition:: Stable Medical Necessity - Tobacco Use Smoking Status: Current every day smoker Tobacco Use: Non-smoker Meaningful Use Info Meaningful Use Diagnoses (Choose all that apply): CHF - CHF DEJON/ARB ordered at discharge?: Yes Documented LVEF (%): 75 Code Visit Inpatient E&M: 41216 Disch Hosp
== END 2018-03-23 17:52 | disposition intermediate care facility (04) | DRG 194 ==
LOC: ED 12:19 → PCU 14:14
PROVIDERS: Physician Assistant; Admitting Provider Internal Medicine; Emergency Provider Emergency Medicine; Family Provider Internal Medicine; PCP Internal Medicine; Visit Provider Hospitalist
DX: I13.0 Hypertensive heart and chronic kidney disease with heart failure and stage 1 through stage 4 chronic kidney disease, or unspecified chronic kidney disease (principal); I50.33 Acute on chronic diastolic (congestive) heart failure; N18.3 Chronic kidney disease, stage 3 (moderate); E03.9 Hypothyroidism, unspecified; E66.01 Morbid (severe) obesity due to excess calories; Z68.43 Body mass index [BMI] 50.0-59.9, adult; R74.0 Nonspecific elevation of levels of transaminase and lactic acid dehydrogenase [LDH]; J96.11 Chronic respiratory failure with hypoxia; J44.9 Chronic obstructive pulmonary disease, unspecified; I89.0 Lymphedema, not elsewhere classified; F17.200 Nicotine dependence, unspecified, uncomplicated
CPT/HCPCS: 36415; 51702; 71045; 80048; 81001; 83880; 84484; 85025; 93005; 94640; 97162; 97166; 97530; 97802; 99285; 99406; A4216; J1940

== ENCOUNTER 2018-08-20 13:37 | Inpatient (IN) | payer MEDICAID, SELFPAY ==
[2018-03-21 15:16] VITALS: BMI 57.2
[2018-08-20] VITALS (20 sets, daily range): BP systolic 111–138; BP diastolic 64–94; PULSE 75–98; RESP 12–22; TEMP 36.4–36.9; O2SAT 86–96; BMI 55.0; BMI 53.8
--- NOTE | 2018-08-20 13:45 | EKG12_ITS ---
Test Reason : SOB Blood Pressure : / mmHG Vent. Rate : 074 BPM Atrial Rate : 074 BPM P-R Int : 172 ms QRS Dur : 110 ms QT Int : 370 ms P-R-T Axes : 065 122 -41 degrees QTc Int : 410 ms Normal sinus rhythm Right ventricular hypertrophy with repolarization abnormality Septal infarct (cited on or before 06-JAN-2018) T wave abnormality, consider inferior ischemia Abnormal ECG Confirmed by JM BONILLA, BRODY ([id number]), tape editor PROSPER GARCIA ([id number]) on 08/21/2018 1:43:04 PM Referred By: ALLEGRA Confirmed By:BRODY ONEAL MD
--- NOTE | 2018-08-20 13:46 | ED.DCSUM_ITS ---
History of Present Illness Chief Complaint: Shortness of Breath Informant: Patient Onset: Days Context: Gradual Onset Timing: Continuous Quality: Shortness of breath and productive cough Location: Home Current Severity: Moderate Maximum Severity: Moderate Worsened by: Uncertain Relieved by: Nothing Associated Symptoms: Sleepiness Narrative: Patient is a middle-aged morbidly obese woman who presents with productive cough of brown-colored sputum, shortness of breath, wheezing for the past several days. She is on home oxygen at 5 L. She denies history of obstructive sleep apnea. She states her feet are always purple in color. She denies fever or chills. She sleeps in a hospital bed that is at 60 degrees. She denies history of congestive heart failure; however, review of records indicates patient does have congestive heart failure. Prior similar symptoms: Yes Recent Illness/Hospitalization: No - Past Medical History (1) Acute on chronic diastolic (congestive) heart failure Status: Chronic (2) Essential (primary) hypertension Status: Chronic (3) Morbid obesity with BMI of 60.0-69.9, adult Status: Chronic (4) Pulmonary embolism Status: Chronic (5) Secondary pulmonary arterial hypertension Status: Chronic (6) History of COPD Status: Chronic Past Medical History - Allergies and Home Meds Allergies/Adverse Reactions: Allergies oxycodone [Oxycodone] Allergy (Verified 08/20/18 15:30) Rash oxycodone HCl [From Percodan] Allergy (Verified 03/21/18 11:44) Hives oxycodone terephthalate [From Percodan] Allergy (Verified 03/21/18 11:44) Hives Sulfa (Sulfonamide Antibiotics) Allergy (Verified 03/21/18 11:44) Hives cefuroxime Adverse Reaction (Verified 03/21/18 11:44) Unknown Cephalosporins Adverse Reaction (Verified 03/21/18 11:44) Vomiting meperidine HCl [From Demerol] Adverse Reaction (Verified 03/21/18 11:44) Vomiting NSAIDS (Non-Steroidal Anti-Inflamma Adverse Reaction (Verified 03/21/18 11:44) Unknown Primary Care Physician: Brian Thao MD [Primary Care Provider] - Prior records reviewed: Yes Surgical History: cholecystectomy, - - 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 Maternal Family History: Reports: - - Denies known cardiac history. Additional Family History: unable to get history, pt uncooperative Review of Systems General: Denies: Chills, Fever, Sweats Eyes: Denies: Visual changes - bilaterally, Blurred Vision - bilaterally, Diplopia ENT: Denies: Rhinorrhea, Sore throat Cardiovascular: Denies: Chest pain, Palpitations Respiratory: Reports: Dyspnea, Cough, Sputum, Dyspnea on exertion, Orthopnea. Denies: Paroxysmal nocturnal dyspnea Gastrointestinal: Denies: Abdominal pain, Nausea, Vomiting, Diarrhea, Melena, Hematochezia Genitourinary: Denies: Dysuria, Hematuria, Frequency Musculoskeletal: Denies: Back pain, Extremity Pain Skin: Denies: Rash, Wounds Neurological: Reports: Weakness. Denies: Headache, Parasthesia, Numbness Hematologic: Denies: Easy bruising, Easy bleeding Physical Exam Vital Signs/Narrative: Vital Signs Temp Pulse Resp BP Pulse Ox 08/20/18 13:38 98.2 F 76 17 127/84 H 90 Inital Vital Signs reviewed: Yes General: Well nourished, Well developed, No Acute Distress Head: Normocephalic, Atraumatic Eyes: Perrl, EOMI ENT: Moist mucous membranes, No rhinorrhea Neck: Supple, Nontender Cardiovascular: Regular rate, Regular rhythm, No murmurs Respiratory: Chest nontender, Rales - Bilaterally lower lobes, Wheezing - Throughout with increased expiratory phase, Decreased Air Movement Abdomen: Soft, Nontender, Nondistended, Normal bowel sounds Back: Nontender, Normal Inspection. Negative for: CVA tenderness Extremities: Nontender, Edema - Plus minus Skin: Normal color, No rash, - - There is a purplish discoloration of her feet and hyperemia of her lower extremities. Capillary refill is normal. Neurological: Alert, Oriented x3, Cranial nerves II-XII grossly intact, Normal Strength, Normal Sensation Psychological: Normal affect, Normal Mood Diagnostic/Tx/Re-eval Chest X-Ray - ED: 1 View, Read by ED Physician, Cardiomegaly, CHF Impressions Chest X-Ray 08/20/18 14:19 IMPRESSION: Vascular congestion and CHF. Bibasilar atelectasis. Electronically Signed: Alvin Schmitt, at 15:19 EDT , Service support , 08/20/18 14:19 Chest PA and Lateral [RAD] Stat Laboratory Results 08/20/18 08/20/18 08/20/18 14:00 14:00 14:00 WBC 10.4 RBC 6.96 H Hgb 15.3 H Hct 54.5 H MCV 78.3 L MCH 22.0 L MCHC 28.1 L RDW 24.1 H RDW Differential 66.5 H Plt Count 131 L MPV TNP Immature Gran % (Auto) 0.200 Neut % (Auto) 66.3 Lymph % (Auto) 19.4 [place] % (Auto) 12.0 H Eos % (Auto) 1.6 Baso % (Auto) 0.5 Absolute Neuts (auto) 6.9 Absolute Lymphs (auto) 2.01 Total Counted Not Reportable Nucleated RBC % 0.3 Differential Comment COMMENT Absolute Retic 0.03 Specimen Type Sample Site pH Bicarbonate Actual POC Total CO2 Base Excess O2 Saturation ABG pCO2 ABG pO2 Acsimiro Test O2 Delivery Device Liter Flow Blood Gas Notified Whom Blood Gas Notified Time Sodium 136 Potassium 5.0 Chloride 102 Carbon Dioxide 36.0 H Anion Gap -2 L BUN 27 H Creatinine 1.23 H Estim Creat Clear Calc 48.38 Est GFR (MDRD) Af Amer 58 L Est GFR (MDRD) Non-Af 48 L BUN/Creatinine Ratio 22.0 H Glucose 85 Calcium 9.0 Troponin I < 0.015 B-Natriuretic Peptide 997.8 H 08/20/18 14:16 WBC RBC Hgb Hct MCV MCH MCHC RDW RDW Differential Plt Count MPV Immature Gran % (Auto) Neut % (Auto) Lymph % (Auto) [place] % (Auto) Eos % (Auto) Baso % (Auto) Absolute Neuts (auto) Absolute Lymphs (auto) Total Counted Nucleated RBC % Differential Comment Absolute Retic Specimen Type ART Sample Site R Radial pH 7.32 L Bicarbonate Actual 35.5 H POC Total CO2 38 Base Excess 9 H O2 Saturation 90 L ABG pCO2 68.7 H* ABG pO2 67 L Casimiro Test POS O2 Delivery Device Nasal Can Liter Flow 5.0 Blood Gas Notified Whom ED MD Blood Gas Notified Time 1410 Sodium Potassium Chloride Carbon Dioxide Anion Gap BUN Creatinine Estim Creat Clear Calc Est GFR (MDRD) Af Amer Est GFR (MDRD) Non-Af BUN/Creatinine Ratio Glucose Calcium Troponin I B-Natriuretic Peptide - Medical Decision Making Need to evaluate for COPD, pneumonia, congestive heart failure. With patient somnolent ABG was obtained to assess acid-base status and CO2 level. EKG, chest x-ray and appropriate blood work was ordered. Patient was placed on BiPAP. She tolerated BiPAP and her respiratory effort improved and is not as labored. Blood gas reveals acute on chronic CO2 retention and hypoxia./Increased AA gradient. The chest x-ray is consistent with congestive heart failure. BNP is approximate 1000. EKG reveals a sinus rhythm with no ossific ST-T wave changes and is unchanged from March 21, 2018. There is an EKG that was obtained January 06, 2018 which appears similar to today's EKG. Patient was treated with Lasix and Nitropaste. Will contact hospitalist for admission writing. - Critical Care Time Critical care time (excluding procedures): 30-74 minutes - 33 minutes., Discussing w/Patient &/or Family/Surgical Coder, Discussing w/Consultants, Arranging Admission or Transfer ED Disposition - Plan for ED Patient: Disposition: Acute Care Hospital [facility] Diagnosis: Respiratory failure with hypoxia and hypercapnia, Acute exacerbation of congestive heart failure, Bronchospasm, History of COPD, Secondary pulmonary arterial hypertension, Essential (primary) hypertension Referrals: Brian Thao MD [Primary Care Provider] -
[2018-08-20 14:17] LABS: Absolute Lymphocyte Count 2.01 X10^3/ul (0.83-4.51); Absolute Neutrophil Count 6.9 X10^3/uL (2.0-7.7); Basophil# 0.05 X10^3/uL; Basophil% 0.5 % (0-1); Eosinophil# 0.17 X10^3/uL; Eosinophils% 1.6 % (0-5); Hematocrit 54.5 % (37-47); Hemoglobin 15.3 g/dl (12.0-15.0); Lymphocyte # 2.01 X10^3/ul (4.0); Lymphocyte % 19.4 % (19-41); Mean Corp Hgb Conc 28.1 g/gl (32-36); Mean Corpuscular Volume 78.3 fL (81-99); Monocyte# 1.24 X10^3/uL; Neutrophil # 6.86 X10^3/uL (2.7-7.7); Neutrophil % 66.3 % (47-70); Platelet Count 131 K/mm3 (150-450); RBC Distribution Width CV 24.1 % (11.6-14.6); RBC Distribution Width SD 66.5 fl (35.1-43.9); Red Blood Count 6.96 M/mm3 (4.2-5.4); White Blood Count 10.4 K/mm3 (4.4-11.0)
--- NOTE | 2018-08-20 14:19 | RAD_ITS ---
STUDY: X-RAY CHEST REASON FOR EXAM: Female, 53 years old. Productive cough, dyspnea and wheezing. TECHNIQUE: AP and lateral views of the chest. COMPARISON: Comparison is made with prior radiograph dated March 21, 2018. FINDINGS: EKG electrodes are seen. There is evidence of vascular congestion and CHF. Mild bibasilar atelectasis slightly worse on the left side. There is no demonstrated pleural abnormality. There is moderate cardiac enlargement. Normal mediastinum and randolph. Normal visualized pulmonary arteries. There is atherosclerotic tortuosity of the aortic arch and descending thoracic aorta. Normal visualized thoracic spine. Normal visualized ribs, clavicles, and shoulders. There is no demonstrated abnormality of the visualized soft tissue structures of the upper abdomen. RAD/Chest PA and Lateral IMPRESSION: Vascular congestion and CHF. Bibasilar atelectasis. Electronically Signed: Alvin Schmitt, at 15:19 EDT , Service support ,
[2018-08-20 14:21] LABS: Differential Indicated SCAN CRITERIA MET; POSITIVE COUNT NO; POSITIVE DIFFERENTIAL NO; POSITIVE MORPHOLOGY YES
[2018-08-20 14:22] LABS: Absolute Nucleated RBC Count 0.03 10^3/uL (0-5); NRBC Flagged by Analyzer 0.3 % (0-5)
[2018-08-20 14:25] LABS: Allen Test POS; Base Excess 9 mmol/L (-2 to +2); Bicarbonate 35.5 mmol/L (22-26); Blood Gas Specimen Type ART; O2 Delivery Device Nasal Can; PO2 67 mmHG (75-100); SITE R Radial; SO2 90 % (95-99); Time Given 1410; Total Carbon Dioxide 38 mmol/L; pCO2 68.7 mmHg (35-45); pH 7.32 (7.35-7.45)
[2018-08-20 14:28] LABS: Anion Gap -2 (5-15); BUN 27 mg/dL (7-18); Chloride 102 mmol/L (98-107); Creatinine, Serum 1.23 mg/dL (0.55-1.02); EST Glomerular Filtration Rate 48 mL/min (>60); Est Glom Filt Rate - Afr Amer 58 mL/min (>60); Estimated Creatinine Clearance 48.38 ml/min; Glucose 85 mg/dL (74-106); Sodium Level 136 mmol/L (136-145)
[2018-08-20 14:45] LABS: BNP,B-Type NATRIURETIC PEPTIDE 997.8 pg/mL (0-100)
--- NOTE | 2018-08-20 14:45 | CPS ---
Addendum entered by Gabriela Gotti 08/20/18 14:46: Original Note: Dr Gan handed ABG results at 1417 on 08-20-18. PCO2 showed a critical value.
--- NOTE | 2018-08-20 15:01 | CPS ---
Increased FiO2 to 40% at 1450.
--- NOTE | 2018-08-20 16:02 | CPS ---
Patient given 10 minutes break from BiPAP from [id number]. Patient reluctantly agreed to go back on BiPAP.
--- NOTE | 2018-08-20 16:22 | HP.PCM_ITS ---
Problem List (1) Chronic diastolic CHF (congestive heart failure) Status: Chronic (2) History of COPD Status: Chronic (3) Pulmonary embolism Status: Chronic (4) Secondary pulmonary arterial hypertension Status: Chronic (5) Nicotine dependence Status: Chronic (6) Essential (primary) hypertension Status: Chronic History of Present Illness Date of Admission: 08/20/18 Chief Complaint: Worsening shortness of breath. The patient is a 53 year old F with multiple medical comorbidities as mentioned above presented to the emergency room because of worsening shortness of breath. She mentioned that her breathing has been getting worse over the last 4 days, she gets short of breath even at rest, aggravated by minimal activity, no significant relieved with rest, associated with productive cough with minimal white sputum as well as leg edema. She has been using oxygen at home at 5 L and she continued to use it but without improvement. She denies chest pain, palpitation, dizziness or lightheadedness. She denies fever or chills. She is to take that she takes her Bumex every day as prescribed. She has history of chronic diastolic CHF with frequent admissions for acute flareups and most recent admission was on March,. She has history of COPD with chronic respiratory failure and she has been on home oxygen at 5 L. She had a history of pulmonary embolism and she has been on Eliquis. In the emergency department, patient was sleepy but easily arousable, alert and oriented upon talking to her. She was afebrile, heart rate stable, blood pressure stable, pulse ox was 90% on 6 L. Routine blood work was remarkable for platelet count of 131,000, BUN is 27 and creatinine is 1.23. EKG revealed normal sinus rhythm with inverted T waves and lateral chest leads, no acute changes compared to previous EKG, no acute ischemic changes. Troponin was negative. BNP was 997 but it is chronically elevated. Her ABG revealed pH of 7.32, PCO2 of 68 and PO2 of 67. She was started on BiPAP. Chest x-ray revealed cardiomegaly with bilateral pulmonary vascular congestion findings which is more prominent compared to previous chest x-rays. She is being admitted for acute on chronic diastolic CHF, acute on chronic hypoxic and hypercapnic respiratory failure. Past Medical History Past Medical History (Chronic Problems): Chronic Problems (Last Updated 08/20/18 @ 16:21 by Evelyn Velasquez MD) Chronic diastolic CHF (congestive heart failure) (Chronic) History of COPD (Chronic) Acute exacerbation of congestive heart failure (Chronic) Pulmonary embolism (Chronic) Right bundle branch block (RBBB) (Chronic) Secondary pulmonary arterial hypertension (Chronic) Nicotine dependence (Chronic) Essential (primary) hypertension (Chronic) Morbid obesity with BMI of 60.0-69.9, adult (Chronic) Medical History: Medical History (Last Updated 08/20/18 @ 16:21 by Evelyn Velasquez MD) Pulmonary embolism (Chronic) I26.99 Right bundle branch block (RBBB) (Chronic) I45.10 Secondary pulmonary arterial hypertension (Chronic) I27.21 Nicotine dependence (Chronic) F17.200 Essential (primary) hypertension (Chronic) I10 Morbid obesity with BMI of 60.0-69.9, adult (Chronic) E66.01, Z68.44 COPD (chronic obstructive pulmonary disease) J44.9 Chronic kidney disease N18.9 Hypothyroidism E03.9 Obstructive sleep apnea G47.33 Transaminitis R74.0 Sleep apnea syndrome (Inactive) G47.30 Allergies oxycodone [Oxycodone] Allergy (Verified 08/20/18 15:30) Rash oxycodone HCl [From Percodan] Allergy (Verified 03/21/18 11:44) Hives oxycodone terephthalate [From Percodan] Allergy (Verified 03/21/18 11:44) Hives Sulfa (Sulfonamide Antibiotics) Allergy (Verified 03/21/18 11:44) Hives cefuroxime Adverse Reaction (Verified 03/21/18 11:44) Unknown Cephalosporins Adverse Reaction (Verified 03/21/18 11:44) Vomiting meperidine HCl [From Demerol] Adverse Reaction (Verified 03/21/18 11:44) Vomiting NSAIDS (Non-Steroidal Anti-Inflamma Adverse Reaction (Verified 03/21/18 11:44) Unknown Home Medications: Ambulatory Orders Medication Instructions Recorded Albuterol Inhaler [Ventolin Hfa] 1 - 2 puff INHALATION Q4H PRN PRN 11/28/16 Cholecalciferol (Vitamin D3) 50,000 unit PO TH 11/28/16 [Vitamin D3] Folic Acid 1 mg PO DAILY 11/28/16 Gabapentin [Neurontin] 300 mg PO 4X/DAY 11/28/16 Levothyroxine [Synthroid] 25 mcg PO DAILY 11/28/16 Oxybutynin [Ditropan] 5 mg PO DAILY 11/28/16 Venlafaxine HCl [Venlafaxine HCl 150 mg PO DAILY 11/28/16 ER] Hydroxyzine HCl 10 mg PO TID 06/13/17 Multivitamin with Iron [Tab-A-Jessica 1 tab PO DAILY 06/13/17 with Iron] Atorvastatin Calcium [Lipitor] 40 mg PO QHS 01/07/18 Melatonin 3 mg PO QHS #30 tablet 03/19/18 Acetaminophen [Tylenol] 1,000 mg PO Q6H PRN PRN 03/21/18 Apixaban [Eliquis] 5 mg PO 799,199903/21/18 Aspirin [Aspirin, Baby] 81 mg PO DAILY 03/21/18 Buspirone HCl 7.5 mg PO BID 03/21/18 Loratadine 10 mg PO DAILY PRN PRN 03/21/18 Losartan Potassium 50 mg PO DAILY 03/21/18 Metoprolol Tartrate [Lopressor 25 mg PO BID 03/21/18 (beta vineet)] Allopurinol 100 mg PO DAILY 08/20/18 Budesonide/Formoterol 160/4.5 1 puff INHALATION BID 08/20/18 [Symbicort 160/4.5 Mcg Inhaler (SP)] Bumetanide 2 mg PO BID 08/20/18 Famotidine 20 mg PO QHS PRN 08/20/18 Nystatin 1 applic TOPICAL 4X/DAY PRN PRN 08/20/18 Oxygen, Home [Home Oxygen] 6 lpm NASAL CONT 08/20/18 Surgical History: Surgical History (Last Updated 04/05/18 @ 19:06 by Ana Ferrer) History of left heart catheterization Onset Date: 06/16/17 Z98.890 Hx of cholecystectomy Z90.49 Surgical History: cholecystectomy, - - 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 Maternal History Items: - - Denies known cardiac history. Review of Systems Constitutional: Reports: Weakness. Denies: Anorexia, Chills, Fever Eyes: Denies: Blurred vision, Double vision, Drainage, Redness HEENT: Denies: Difficulty Hearing, Ear Pain, Eye Pain, Nasal Congestion, Sore Throat Cardiovascular: Reports: Edema. Denies: Chest Pain, Chest Pressure, Chest Tightness, Heaviness, Light Headedness, Orthopnea, Paroxysmal Noc. Dyspnea, Syncope Respiratory: Reports: Cough, Shortness of Breath, Shortness of breath at rest, Shortness of breath upon exertion, Sputum production. Denies: Pleuritic Pain, Wheezing Gastrointestinal: Denies: Abdominal Pain, Constipation, Diarrhea, Nausea, Vomiting Genitourinary: Denies: Dysuria, Frequency, Hematuria Musculoskeletal: Denies: Arm Pain, Back Pain, Foot Pain Skin: Denies: Dryness, Rash Neurological: Denies: Balance problems, Double vision, Slurred speech, Confusion, Focal weakness, Headaches, Incoordination Psychiatric: Reports: Depression. Denies: Anxiety Endocrine: Denies: Change in Body Habitus, Polydipsia, Polyuria VTE Information - Inpt Only VTE Present on Admission: No VTE Mechan Device Prophylaxis: None VTE Pharm Prophylaxis ordered?: No - Physical Exam General: Cooperative, - - Sleepy, easily arousablem, oriented x3. HEENT: Atraumatic, PERRLA, EOMI, Normocephalic Oral: Moist Mucosa, No Gingival or Mucosal Lesions/ Ulcerations Neck: Supple, No JVD, Negative Carotid Bruits, Trachea Midline, Thyroid Normal Size and Texture Lungs: No wheeze, Diminished, Rales, Rhonchi, Short of Breath, - - Decreased breath sounds bilaterally, bilateral coarse basal crackles, occasional rhonchi. Cardiovascular: Regular rate, Regular Rhythm, Normal S1, Normal S2, PMI Normal Abdomen: Bowel Sounds Present, Soft, Non Tender, Non-Distended, No Hepato- splenomegaly, Obese Extremities: No clubbing, No cyanosis, Edema - ++ Edema. Skin: No rashes, No breakdown Lymphatic: No Cervical, Supraclavicular, or Inguinal Adenopathy Neurological: Cranial nerves II-XII grossly intact, Motor Exam 5/5 strength throughout Psych/Mental Status: Normal Affect, Flat Affect, Alert and oriented to time, place, person, mood and affect Vital Signs Temp Pulse Resp BP Pulse Ox 97.8 F 82 16 128/94 H 91 08/20/18 15:54 08/20/18 15:55 08/20/18 15:55 08/20/18 15:54 08/20/18 15:55 Oxygen Flow Rate (L/min) 5 Oxygen Delivery Method Bi-pap Weight: 341 lb 0.882 oz Body Mass Index (BMI) 55.0 Laboratory Tests Past 24 Hrs 08/20/18 08/20/18 08/20/18 14:00 14:00 14:00 WBC 10.4 RBC 6.96 H Hgb 15.3 H Hct 54.5 H MCV 78.3 L MCH 22.0 L MCHC 28.1 L RDW 24.1 H RDW Differential 66.5 H Plt Count 131 L MPV TNP Immature Gran % (Auto) 0.200 Neut % (Auto) 66.3 Lymph % (Auto) 19.4 [place] % (Auto) 12.0 H Eos % (Auto) 1.6 Baso % (Auto) 0.5 Absolute Neuts (auto) 6.9 Absolute Lymphs (auto) 2.01 Total Counted Not Reportable Nucleated RBC % 0.3 Differential Comment COMMENT Absolute Retic 0.03 Specimen Type Sample Site pH Bicarbonate Actual POC Total CO2 Base Excess O2 Saturation ABG pCO2 ABG pO2 Casimiro Test O2 Delivery Device Liter Flow Blood Gas Notified Whom Blood Gas Notified Time Sodium 136 Potassium 5.0 Chloride 102 Carbon Dioxide 36.0 H Anion Gap -2 L BUN 27 H Creatinine 1.23 H Estim Creat Clear Calc 48.38 Est GFR (MDRD) Af Amer 58 L Est GFR (MDRD) Non-Af 48 L BUN/Creatinine Ratio 22.0 H Glucose 85 Calcium 9.0 Troponin I < 0.015 B-Natriuretic Peptide 997.8 H 08/20/18 14:16 WBC RBC Hgb Hct MCV MCH MCHC RDW RDW Differential Plt Count MPV Immature Gran % (Auto) Neut % (Auto) Lymph % (Auto) [place] % (Auto) Eos % (Auto) Baso % (Auto) Absolute Neuts (auto) Absolute Lymphs (auto) Total Counted Nucleated RBC % Differential Comment Absolute Retic Specimen Type ART Sample Site R Radial pH 7.32 L Bicarbonate Actual 35.5 H POC Total CO2 38 Base Excess 9 H O2 Saturation 90 L ABG pCO2 68.7 H* ABG pO2 67 L Casimiro Test POS O2 Delivery Device Nasal Can Liter Flow 5.0 Blood Gas Notified Whom ED Blood Gas Notified Time 1410 Sodium Potassium Chloride Carbon Dioxide Anion Gap BUN Creatinine Estim Creat Clear Calc Est GFR (MDRD) Af Amer Est GFR (MDRD) Non-Af BUN/Creatinine Ratio Glucose Calcium Troponin I B-Natriuretic Peptide Clinical Impression(s) from Imaging Studies Chest X-Ray 08/20/18 14:19 IMPRESSION: Vascular congestion and CHF. Bibasilar atelectasis. Electronically Signed: Alvin Schmitt, at 15:19 EDT , Service support , Assessment/Plan This is a 53 years old female patient presented to the emergency room because of worsening shortness of breath and she was found to have acute on chronic diastolic CHF complicated by acute on chronic hypoxic and hypercapnic respiratory failure and she is being admitted for treatment. #1 acute on chronic diastolic CHF: Based on symptoms, chest x-ray findings as well as history of chronic diastolic CHF. Patient mentioned that she has been taking her Bumex daily as prescribed. EKG revealed normal sinus rhythm with inverted T waves in lateral chest leads, no acute changes. Troponin is negative. Plan: Admit to PCU, cardiac monitoring, serial cardiac enzymes, fluid restriction, start IV Lasix, repeat CBC and BMP normal, check pro time and INR, continue Bumex, continue losartan and metoprolol, input output chart, incentive parameter, bronchodilators, chest physiotherapy, PT OT evaluation and treatment. #2 acute on chronic hypoxic and hypercapnic respiratory failure: Multifactorial secondary to acute on chronic CHF as well as history of COPD. Patient has been on oxygen at home at 5 L. ABG revealed pH of 7.32, PCO2 of 68 and PO2 of 67. Plan: IV Lasix for diuresis, bronchodilators, chest failure therapy, BiPAP, incentive spirometer. #3 COPD/chronic respiratory failure: On home oxygen at 5 L. Plan as above, BiPAP, DuoNeb every 4 hours, albuterol as needed. #4 stage III chronic kidney disease: Baseline creatinine has been ranging anywhere from 1.2 to 2 mg/dL. Admission creatinine is 1.23, stable at baseline. Plan to repeat BMP tomorrow morning. #5 history of pulmonary embolism: Continue Eliquis. #6 hypertension: Blood pressure stable, continue Bumex, losartan and metoprolol. #7 depression/anxiety: Continue venlafaxine, risperidone. #8 hypothyroidism: Continue levothyroxine. #9 DVT prophylaxis: Continue Eliquis. This note was generated with [employer] dictation software. It may contain incorrect words, spelling, and punctuation that were not noted in checking the note before signing. Code Visit Inpatient E&M: 56503 Init Hosp L3
[2018-08-20] MEDS: Nitroglycerin Oint 1 INCH PACKET TRANSDERM. (16:26)
[2018-08-20] MEDS: Furosemide 40 MG/4 ML Vial IV ×2 (16:26→22:33)
--- NOTE | 2018-08-20 17:12 | CPS ---
1645: Patient taken off BiPAP and transported to PCU.
[2018-08-20] MEDS: Gabapentin 300 MG Capsule PO ×2 (17:57→22:30)
[2018-08-20] MEDS: Acetaminophen 325 MG Tablet 650 MG PO (17:58)
[2018-08-20 18:46] LABS: International Normalized Ratio 1.4; Prothrombin Time (Protime)PT. 17.1 SECONDS (11.7-14.9)
[2018-08-20] MEDS: Ipratropium/Albuterol Sulfate 3 ML AMPUL.NEB INHALATION (19:54)
[2018-08-20] MEDS: APIXABAN 5 MG TABLET PO (20:13)
[2018-08-20] MEDS: busPIRone 15 MG TABLET 7.5 MG PO (22:29)
[2018-08-20] MEDS: Metoprolol Tartrate 25 MG Tablet PO (22:30)
[2018-08-20] MEDS: MELATONIN 3 MG TABLET PO (22:30)
[2018-08-20] MEDS: hydrOXYzine 10 MG Tablet PO (22:30)
[2018-08-20] MEDS: Atorvastatin Calcium 40 MG Tablet PO (22:30)
[2018-08-20] MEDS: 0.9% NaCl Peripheral Flush Adult/Peds IV (22:34)
[2018-08-21] VITALS (21 sets, daily range): BP systolic 104–128; BP diastolic 63–80; PULSE 77–100; RESP 16–22; TEMP 36.4–37.3; O2SAT 88–96
[2018-08-21] MEDS: hydrOXYzine 10 MG Tablet PO ×3 (06:15→21:19)
[2018-08-21] MEDS: Levothyroxine 25 MCG TABLET PO (06:15)
[2018-08-21] MEDS: 0.9% NaCl Peripheral Flush Adult/Peds IV ×3 (06:15→21:23)
[2018-08-21] MEDS: Furosemide 40 MG/4 ML Vial IV ×3 (06:16→21:20)
--- NOTE | 2018-08-21 06:59 | CPS ---
pt refuses to wear bipap,
[2018-08-21 08:45] LABS: Anion Gap 5 (5-15); BUN 29 mg/dL (7-18); BUN/Creat Ratio 22.8 RATIO (10-20); Chloride 102 mmol/L (98-107); Creatinine, Serum 1.27 mg/dL (0.55-1.02); EST Glomerular Filtration Rate 46 mL/min (>60); Est Glom Filt Rate - Afr Amer 56 mL/min (>60); Estimated Creatinine Clearance 46.86 ml/min; Glucose 116 mg/dL (74-106); Potassium 4.3 mmol/L (3.5-5.1); Sodium Level 144 mmol/L (136-145)
[2018-08-21] MEDS: APIXABAN 5 MG TABLET PO ×2 (09:24→21:19)
[2018-08-21] MEDS: Acetaminophen 325 MG Tablet 650 MG PO ×2 (09:24→18:12)
[2018-08-21] MEDS: Aspirin 81 MG TAB.CHEW PO (09:24)
[2018-08-21] MEDS: busPIRone 15 MG TABLET 7.5 MG PO ×2 (09:25→21:20)
[2018-08-21] MEDS: Tolterodine Tartrate 2 MG CAP.SA PO (09:26)
[2018-08-21] MEDS: Losartan Potassium 50 MG Tablet PO (09:26)
[2018-08-21] MEDS: Folic Acid 1 MG Tablet PO (09:27)
[2018-08-21] MEDS: Venlafaxine XR 150 MG Capsule PO (09:27)
[2018-08-21] MEDS: Metoprolol Tartrate 25 MG Tablet PO ×2 (09:27→21:19)
[2018-08-21] MEDS: Gabapentin 300 MG Capsule PO ×4 (09:27→21:19)
[2018-08-21] MEDS: Allopurinol 100 MG Tablet PO (09:28)
[2018-08-21 09:44] LABS: Basophil% 0.1 % (0-1); Differential Indicated SCAN CRITERIA MET; Eosinophils% 0.1 % (0-5); Hematocrit 55.1 % (37-47); Hemoglobin 15.5 g/dl (12.0-15.0); Lymphocyte % 11.4 % (19-41); Mean Corp Hgb Conc 28.1 g/gl (32-36); Mean Corpuscular Volume 78.3 fL (81-99); Monocyte% 13.7 % (0-10); Neutrophil % 74.6 % (47-70); POSITIVE COUNT NO; POSITIVE DIFFERENTIAL NO; POSITIVE MORPHOLOGY YES; Platelet Count 112 K/mm3 (150-450); RBC Distribution Width CV 24.4 % (11.6-14.6); RBC Distribution Width SD 66.9 fl (35.1-43.9); White Blood Count 8.5 K/mm3 (4.4-11.0)
[2018-08-21 09:45] LABS: Absolute Lymphocyte Count 0.97 X10^3/ul (0.83-4.51); Absolute Neutrophil Count 6.3 X10^3/uL (2.0-7.7); Basophil# 0.01 X10^3/uL; Eosinophil# 0.01 X10^3/uL; Lymphocyte # 0.97 X10^3/ul (4.0); Monocyte# 1.16 X10^3/uL; Neutrophil # 6.33 X10^3/uL (2.7-7.7)
[2018-08-21 09:46] LABS: Differential Comment SCANNED
[2018-08-21 09:47] LABS: Anisocytosis 2+; Hypochromasia 1+; Macrocytosis 1+; Microcytosis 1+; Ovalocyte 1+; Platelet Estimate SLT DEC (ADEQ); Platelet Morphology LARGE; Poikilocytosis 2+
[2018-08-21] MEDS: Ipratropium/Albuterol Sulfate 3 ML AMPUL.NEB INHALATION ×3 (11:42→19:47)
--- NOTE | 2018-08-21 13:04 | CASEMGMT ---
Addendum entered by Yared Cha 08/21/18 14:04: Call received from Kellie Sierra, MAU @ [facility]. Aide services were approved for 30 hours/week started Monday08/20/18. Staffing is arranged for M-F 9:30-11 am and Sat 10-2. Meals and Life alert also provided. CM requests notification of discharge. Original Note: RN CM Assessment Presentation: CHF Intro role of CM and purpose of RN CM assessment to patient. She is somnolent and having difficulty staying awake. Nodding head to answers. Demographics, PCP and Pharmacy verified. Pt agreeable to CM calling family for assist with questions. Attempted to call daughter to discuss how pt was doing prior to admission, no answer. Call to sister Randall who states pt is not able to care for herself at home. Per family, pt continues to smoke, has difficulty with ADL and requires family assistance for meals, bathing and going to store for groceries. Sister is concerned with patient returning home. PCP: Dr. Thao. Pt was last seen in June 2018 and has next appt September 2018 per office. Preferred Pharmacy: [facility] Insurance: [facility] Prescription Benefit: yes LNOK: Daughter Aruna Fuller Living Arrangements: Lives in apartment, uses walker and oxygen. Per family, pt has difficulty caring for herself. sister helps when she can, but works and has a who needs assistance. Pt makes some of her own meals, but daughters bring groceries and meals. Transportation: pt has used [employer] transportation in past. Not always available. SW Consult: Difficult home situation. pt has [facility] [employer], services have not been set up. Pt not able to care for self independently at home. [facility] Kellie Sierra -called to notify via voicemail that pt is in hospital. DME: walker, wheelchair, hospital bed, BSC, hand held shower, rails/grab bars, nebulizer, oxygen through [employer]. -call to [employer] : continuous O2 script active, concentrator, portable tanks (have not been filled since 2017). (No Cpap or Bipap). HHC/SNF [facility] in past . Patient DC goals: Home DC PLAN: PT/OT evaluations pending. Anticipate recommendation for SNF. Timothy HUBERN RN ACM
--- NOTE | 2018-08-21 20:31 | PN_ITS ---
Patient Problems: Active and Suspected Problems (Last Updated 08/20/18 @ 16:21 by Evelyn Velasquez MD) Respiratory failure with hypoxia and hypercapnia (Acute) Bronchospasm (Acute) Subjective: Seen and examined today, I discussed her care with social and political studies professor who stated that family members requested the patient consider inpatient short-term nursing care at a [place] [facility]. Family members feel the patient needs more help than they are able to provide and they are fatigued helping the patient. I went over this with the patient, she absolutely refused to go to an extended care facility at this time and desires discharge to home when appropriate. Patient continues to receive IV Lasix, she is currently on nasal cannula O2 at 5 L. Patient states she continues to smoke at home even though she knows that it is not good for her to do. She also states that she is intolerant of BiPAP and CPAP and she admits to having history of sleep apnea. - Physical Exam General: Alert, Oriented x3, Cooperative, No apparent distress, Well developed HEENT: Atraumatic, PERRLA, EOMI, Normocephalic Oral: Moist Mucosa Neck: Supple, No JVD, Trachea Midline, Thyroid Normal Size and Texture Lungs: Clear to auscultation, No rhonchi, No wheeze, Diminished Cardiovascular: Regular rate, Regular Rhythm, Normal S1, Normal S2, No murmurs, No Ectopic Activity Abdomen: Bowel Sounds Present, Soft, Non Tender, Non-Distended, Obese, No hernias noted Extremities: No clubbing, No cyanosis, No edema, Capillary Refill Less than 3 Seconds Skin: No rashes, No breakdown Musculoskeletal: No Tenderness to Palpation of Joints or Extremities Neurological: Cranial nerves II-XII grossly intact, Neuro grossly intact, Sensory exam intact to light touch and pain, Coordination normal Psych/Mental Status: Normal Affect, Appropriate, Alert and oriented to time, place, person, mood and affect Vital Signs Temp Pulse Resp BP Pulse Ox 98.3 F 77 18 122/73 H 93 08/21/18 18:11 08/21/18 18:30 08/21/18 18:30 08/21/18 18:11 08/21/18 18:30 Oxygen Flow Rate (L/min) 5 Oxygen Delivery Method Nasal Cannula Weight: 152.6 kg Body Mass Index (BMI) 53.8 Intake and Output for Last 24 Hours 08/19/18 08/20/18 08/21/18 23:59 23:59 23:59 Intake Total 360 / 480 1465 / 1465 Output Total 300 / 900 1650 / 1650 Balance 60 / -420 -185 / -185 Laboratory Tests Past 24 Hrs 08/20/18 08/21/18 08/21/18 20:15 07:37 07:37 WBC 8.5 RBC 7.40 H Hgb 15.5 H Hct 55.1 H MCV 78.3 L MCH 22.0 L MCHC 28.1 L RDW 24.4 H RDW Differential 66.9 H Plt Count 112 L Immature Gran % (Auto) 0.100 Neut % (Auto) 74.6 H Lymph % (Auto) 11.4 L Giles % (Auto) 13.7 H Eos % (Auto) 0.1 Baso % (Auto) 0.1 Absolute Neuts (auto) 6.3 Absolute Lymphs (auto) 0.97 Total Counted Not Reportable Differential Comment SCANNED Platelet Estimate SLT DEC Plt Morphology Comment LARGE Hypochromasia 1+ Poikilocytosis 2+ Anisocytosis 2+ Microcytosis 1+ Macrocytosis 1+ Ovalocytes 1+ Sodium 144 Potassium 4.3 Chloride 102 Carbon Dioxide 37.0 H Anion Gap 5 BUN 29 H Creatinine 1.27 H Estim Creat Clear Calc 46.86 Est GFR (MDRD) Af Amer 56 L Est GFR (MDRD) Non-Af 46 L BUN/Creatinine Ratio 22.8 H Glucose 116 H Calcium 9.0 Troponin I < 0.015 Medical Necessity - Tobacco Use Smoking Status: Current every day smoker Tobacco Use: Cigarettes Assessment/Plan All Active Problems (Last Updated 08/20/18 @ 16:21 by Evelyn Velasquez MD) Respiratory failure with hypoxia and hypercapnia (Acute) Bronchospasm (Acute) #1 acute diastolic congestive heart failure-continue IV Lasix #2 chronic hypoxic respiratory failure-pulse ox will be monitored #3 morbid obesity #4 obstructive sleep apnea-noncompliant with treatment #5 hypertension #6 hypothyroidism #7 chronic kidney disease stage III-etiology unknown #8 chronic obstructive pulmonary disease #9 moderate pulmonary hypertension Code Visit Inpatient E&M: 09672 Subs Hosp L2
[2018-08-21] MEDS: Atorvastatin Calcium 40 MG Tablet PO (21:19)
[2018-08-21] MEDS: MELATONIN 3 MG TABLET PO (21:19)
--- NOTE | 2018-08-21 23:15 | CPS ---
patient attemtped to wear bipap times 5 minutes prior to refusal. patient placed back on 5 lpm nc.
[2018-08-22] VITALS (21 sets, daily range): BP systolic 98–127; BP diastolic 54–85; PULSE 81–106; RESP 17–20; TEMP 36.4–36.9; O2SAT 86–94
--- NOTE | 2018-08-22 05:55 | RAD_ITS ---
STUDY: X-RAY CHEST REASON FOR EXAM: Female, 53 years old. Dyspnea/shortness of breath. TECHNIQUE: Single AP portable view of the chest. COMPARISON: Comparison is made with prior study dated August 20, 2018. FINDINGS: EKG electrodes are seen. Persistent mild degree of vascular congestion although this has improved as compared to prior study. Increased markings at the left lung base suggestive of left basilar atelectasis and/or infiltrate. Blunting of the left costophrenic angle. There is moderate cardiac enlargement. Normal mediastinum and randolph. There is prominence of the pulmonary hilar arteries, suggesting pulmonary hypertension. There is atherosclerotic tortuosity of the aortic arch and descending thoracic aorta. There are diffuse degenerative changes of the visualized thoracic spine. Normal visualized ribs, clavicles, and shoulders. There is no demonstrated abnormality of the visualized soft tissue structures of the upper abdomen. RAD/Chest 1 View (Portable) IMPRESSION: Residual vascular congestion although there has been improvement as compared to prior study. Electronically Signed: Alvin Schmitt, at 9:28 EDT , Service support ,
[2018-08-22 06:06] LABS: Anion Gap 4 (5-15); BUN 29 mg/dL (7-18); BUN/Creat Ratio 23.8 RATIO (10-20); Calcium,Total 8.8 mg/dL (8.5-10.1); Chloride 101 mmol/L (98-107); Creatinine, Serum 1.22 mg/dL (0.55-1.02); EST Glomerular Filtration Rate 49 mL/min (>60); Est Glom Filt Rate - Afr Amer 59 mL/min (>60); Estimated Creatinine Clearance 48.78 ml/min; Glucose 104 mg/dL (74-106); Potassium 3.9 mmol/L (3.5-5.1); Sodium Level 145 mmol/L (136-145)
[2018-08-22] MEDS: hydrOXYzine 10 MG Tablet PO ×3 (06:19→22:04)
[2018-08-22] MEDS: Levothyroxine 25 MCG TABLET PO (06:19)
[2018-08-22] MEDS: Acetaminophen 325 MG Tablet 650 MG PO ×2 (06:19→09:50)
[2018-08-22] MEDS: Furosemide 40 MG/4 ML Vial IV ×3 (06:20→22:04)
[2018-08-22] MEDS: 0.9% NaCl Peripheral Flush Adult/Peds IV ×3 (06:20→22:06)
[2018-08-22] MEDS: Nystatin Powder 15gm Bottle 1 APPLIC TOPICAL ×3 (06:21→22:05)
[2018-08-22] MEDS: Ipratropium/Albuterol Sulfate 3 ML AMPUL.NEB INHALATION ×4 (06:59→19:16)
[2018-08-22 09:20] LABS: Allen Test POS; Base Excess 14 mmol/L (-2 to +2); Bicarbonate 40.5 mmol/L (22-26); Blood Gas Specimen Type ART; O2 Delivery Device Nasal Can; PO2 69 mmHG (75-100); SITE L Radial; SO2 90 % (95-99); Time Given 850; Total Carbon Dioxide 43 mmol/L; pCO2 84.3 mmHg (35-45); pH 7.29 (7.35-7.45)
--- NOTE | 2018-08-22 09:34 | CPS ---
Critical ABG value texted to DR. Pemberton
[2018-08-22] MEDS: Allopurinol 100 MG Tablet PO (09:42)
[2018-08-22] MEDS: Metoprolol Tartrate 25 MG Tablet PO (09:42)
[2018-08-22] MEDS: Folic Acid 1 MG Tablet PO (09:43)
[2018-08-22] MEDS: APIXABAN 5 MG TABLET PO ×2 (09:43→20:28)
[2018-08-22] MEDS: Aspirin 81 MG TAB.CHEW PO (09:43)
[2018-08-22] MEDS: Losartan Potassium 50 MG Tablet PO (09:43)
[2018-08-22] MEDS: Tolterodine Tartrate 2 MG CAP.SA PO (09:43)
[2018-08-22] MEDS: metOLazone 5 MG Tablet 10 MG PO (09:43)
[2018-08-22] MEDS: Gabapentin 300 MG Capsule PO ×4 (09:43→22:05)
[2018-08-22] MEDS: busPIRone 15 MG TABLET 7.5 MG PO ×2 (09:43→22:04)
[2018-08-22] MEDS: Venlafaxine XR 150 MG Capsule PO (09:46)
[2018-08-22] MEDS: HYDROcodone Bitartrate/Apap 5/325 Tablet PO ×2 (14:12→22:05)
--- NOTE | 2018-08-22 17:24 | PCM.PROGNOTE ---
Patient Problems: Active and Suspected Problems (Last Updated 08/20/18 @ 16:21 by Evelyn Velasquez MD) Respiratory failure with hypoxia and hypercapnia (Acute) Bronchospasm (Acute) Subjective: Patient was seen and examined today, she had a drop in her pulse ox on nasal cannula O2, was briefly placed on BiPAP but did not tolerate BiPAP and requested to go back on nasal cannula oxygen. ABG was performed which showed the patient to be hypercapnic, at the time of my examination today, patient is alert and oriented x3 and appropriate. I gave the patient 1 dose of Zaroxolyn, she will need to remain on IV Lasix, chest x-ray today showed continued vascular congestion and a large pulmonary artery on the left-this probably indicates patient has significant pulmonary hypertension. - Physical Exam General: Alert, Oriented x3, Cooperative, No apparent distress, Well developed HEENT: Atraumatic, PERRLA, EOMI, Normocephalic Oral: Moist Mucosa Neck: Supple, Trachea Midline, Thyroid Normal Size and Texture Lungs: Clear to auscultation, No rhonchi, No wheeze, No rales, Diminished Cardiovascular: Regular rate, Regular Rhythm, Normal S1, Normal S2, No murmurs Abdomen: Bowel Sounds Present, Soft, Non Tender, Non-Distended, Obese Extremities: No clubbing, No cyanosis, Capillary Refill Less than 3 Seconds Skin: No rashes, No breakdown Musculoskeletal: No Tenderness to Palpation of Joints or Extremities Neurological: Cranial nerves II-XII grossly intact, Neuro grossly intact, Sensory exam intact to light touch and pain, Coordination normal Psych/Mental Status: Normal Affect, Appropriate, Alert and oriented to time, place, person, mood and affect Vital Signs Temp Pulse Resp BP Pulse Ox 97.9 F 89 20 H 126/79 H 94 08/22/18 16:10 08/22/18 16:10 08/22/18 16:10 08/22/18 16:10 08/22/18 16:10 Oxygen Flow Rate (L/min) 6 Oxygen Delivery Method Nasal Cannula Weight: 147.8 kg Body Mass Index (BMI) 53.8 Intake and Output for Last 24 Hours 08/20/18 08/21/18 08/22/18 23:59 23:59 23:59 Intake Total 360 / 480 1465 / 1585 760 / 760 Output Total 300 / 900 1650 / 2000 630 / 630 Balance 60 / -420 -185 / -415 130 / 130 Laboratory Tests Past 24 Hrs 08/22/18 08/22/18 05:20 09:15 Specimen Type ART Sample Site L Radial pH 7.29 L Bicarbonate Actual 40.5 H POC Total CO2 43 Base Excess 14 H O2 Saturation 90 L ABG pCO2 84.3 H* ABG pO2 69 L Casimiro Test POS O2 Delivery Device Nasal Can Liter Flow 6.0 Blood Gas Notified Whom HOSP Blood Gas Notified Time 850 Sodium 145 Potassium 3.9 Chloride 101 Carbon Dioxide 40.0 H Anion Gap 4 L BUN 29 H Creatinine 1.22 H Estim Creat Clear Calc 48.78 Est GFR (MDRD) Af Amer 59 L Est GFR (MDRD) Non-Af 49 L BUN/Creatinine Ratio 23.8 H Glucose 104 Calcium 8.8 Medical Necessity - Tobacco Use Smoking Status: Current every day smoker Tobacco Use: Cigarettes Assessment/Plan All Active Problems (Last Updated 08/20/18 @ 16:21 by Evelyn Velasquez MD) Respiratory failure with hypoxia and hypercapnia (Acute) Bronchospasm (Acute) #1 acute diastolic congestive heart failure-continue IV Lasix, monitor urine output #2 chronic hypoxic and hypercapnic respiratory failure-pulse ox will be monitored, patient is intolerant to BiPAP #3 morbid obesity #4 obstructive sleep apnea-noncompliant with treatment #5 hypertension #6 hypothyroidism #7 chronic kidney disease stage III-etiology unknown #8 chronic obstructive pulmonary disease #9 moderate pulmonary hypertension Code Visit Inpatient E&M: 09285 Subs Hosp L2
--- NOTE | 2018-08-22 22:00 | CPS ---
Discussed with patient about wearing BiPAP tonight. Discussed benefits of wearing PAP at night. Patient understands benefits, but would still like to refuse usage of device. Patient understands to tell RN to contact CONTINUOUS MINER OPERATOR HELPER if patient decides to go BiPAP tonight.
[2018-08-22] MEDS: MELATONIN 3 MG TABLET PO (22:05)
[2018-08-22] MEDS: Atorvastatin Calcium 40 MG Tablet PO (22:05)
[2018-08-23] VITALS (25 sets, daily range): BP systolic 91–125; BP diastolic 40–80; PULSE 82–109; RESP 12–22; TEMP 36.4–37.2; O2SAT 86–94
[2018-08-23] MEDS: Albuterol 2.5 MG/3 ML VIAL.NEB. INHALATION (01:16)
[2018-08-23 02:36] LABS: Allen Test POS; Base Excess 20 mmol/L (-2 to +2); Bicarbonate 46.5 mmol/L (22-26); Blood Gas Specimen Type ART; O2 Delivery Device Nasal Can; PO2 51 mmHG (75-100); SITE L Radial; SO2 79 % (95-99); Time Given 219; Total Carbon Dioxide 49 mmol/L; pH 7.32 (7.35-7.45)
--- NOTE | 2018-08-23 03:30 | NURSING ---
This RN has worked with patient all night to keep bipap on. Patient refuses and takes of when she does not want on any longer. This RN contacted Respiratory Therapy and Dr. Trujillo to let them know. This interdisciplinary team and patient came up with a plan to help maintain pulse oximetry levels. The patient has agreed to wear the bipap in intervals with brief breaks on nasal canula.
[2018-08-23] MEDS: hydrOXYzine 10 MG Tablet PO ×2 (06:28→21:09)
[2018-08-23] MEDS: Levothyroxine 25 MCG TABLET PO (06:28)
[2018-08-23] MEDS: Nystatin Powder 15gm Bottle 1 APPLIC TOPICAL ×3 (06:28→21:34)
--- NOTE | 2018-08-23 06:56 | CPS ---
Critical results for ABG given to . Physician aware.
[2018-08-23] MEDS: Ipratropium/Albuterol Sulfate 3 ML AMPUL.NEB INHALATION ×4 (07:18→19:26)
[2018-08-23 07:36] LABS: Anion Gap 4 (5-15); BUN 26 mg/dL (7-18); BUN/Creat Ratio 20.8 RATIO (10-20); Chloride 94 mmol/L (98-107); Creatinine, Serum 1.25 mg/dL (0.55-1.02); EST Glomerular Filtration Rate 47 mL/min (>60); Est Glom Filt Rate - Afr Amer 57 mL/min (>60); Glucose 101 mg/dL (74-106); Potassium 3.9 mmol/L (3.5-5.1); Sodium Level 142 mmol/L (136-145)
--- NOTE | 2018-08-23 07:42 | CPS ---
Pt placed on 12L HFNC. Pt spo2 90%. Dr. Pearce wants spo2 low 90s
--- NOTE | 2018-08-23 09:51 | PCM.CONS.PUL ---
Problem List (1) Respiratory failure with hypoxia and hypercapnia Status: Acute Qualifiers: Chronicity: acute on chronic Qualified Code(s): J96.21 - Acute and chronic respiratory failure with hypoxia; J96.22 - Acute and chronic respiratory failure with hypercapnia (2) Chronic diastolic CHF (congestive heart failure) Status: Chronic (3) History of COPD Status: Chronic (4) Acute exacerbation of congestive heart failure Status: Chronic (5) Pulmonary embolism Status: Chronic (6) Right bundle branch block (RBBB) Status: Chronic (7) Secondary pulmonary arterial hypertension Status: Chronic (8) Nicotine dependence Status: Chronic (9) Essential (primary) hypertension Status: Chronic (10) Morbid obesity with BMI of 60.0-69.9, adult Status: Chronic Reason for Consult Date of Consultation: 08/23/18 Reason for Consultation: Respiratory failure History of Present Illness: The patient is a 53 year old F, with past medical history listed below, who presented to [facility] on 08/20/2018 secondary to increased shortness of breath, productive cough and wheezing over the last couple of days. Patient reportedly is on 5 L nasal cannula oxygen at baseline and states that she lives at home in a hospital bed that is always at 60 degrees. Patient reportedly had a recent sick exposure with someone with pneumonia and was concerned that she may have pneumonia, so presented for evaluation. On presentation, patient had stated that her feet are always purple. Patient denied any recent fevers, chills, nausea or vomiting. No aspiration events have been reported. Patient denied a history of obstructive sleep apnea and does not use any noninvasive therapy to help her sleep. In the emergency room, patient was noted to be somnolent, so an ABG was obtained. Patient was noted to have significant CO2 retention, so was placed on BiPAP therapy. Chest x-ray was consistent with congestive heart failure and BNP was approximately 1000. EKG appeared unchanged compared to previous. Patient was given Lasix and Nitropaste and admitted to the hospital for further evaluation. Since being in the hospital, patient has intermittently refused to wear BiPAP therapy. Patient did change her CODE STATUS to DNR Comfort Care arrest last evening. Patient states that she does not wish to be on a ventilator, but does not enjoy her BiPAP either. Patient has had to go up on her nasal cannula oxygen secondary to hypoxemia. Patient is denying any chest pain on my evaluation. Patient is reporting a headache and requesting pain medications. Past Medical History Past Medical History (Chronic Problems): Chronic Problems (Last Updated 08/20/18 @ 16:21 by Evelyn Velasquez MD) Chronic diastolic CHF (congestive heart failure) (Chronic) History of COPD (Chronic) Acute exacerbation of congestive heart failure (Chronic) Pulmonary embolism (Chronic) Right bundle branch block (RBBB) (Chronic) Secondary pulmonary arterial hypertension (Chronic) Nicotine dependence (Chronic) Essential (primary) hypertension (Chronic) Morbid obesity with BMI of 60.0-69.9, adult (Chronic) Medical History: Medical History (Last Updated 08/20/18 @ 16:21 by Evelyn Velasquez MD) Pulmonary embolism (Chronic) I26.99 Right bundle branch block (RBBB) (Chronic) I45.10 Secondary pulmonary arterial hypertension (Chronic) I27.21 Nicotine dependence (Chronic) F17.200 Essential (primary) hypertension (Chronic) I10 Morbid obesity with BMI of 60.0-69.9, adult (Chronic) E66.01, Z68.44 COPD (chronic obstructive pulmonary disease) J44.9 Chronic kidney disease N18.9 Hypothyroidism E03.9 Obstructive sleep apnea G47.33 Transaminitis R74.0 Sleep apnea syndrome (Inactive) G47.30 Allergies oxycodone [Oxycodone] Allergy (Verified 08/20/18 15:30) Rash oxycodone HCl [From Percodan] Allergy (Verified 03/21/18 11:44) Hives oxycodone terephthalate [From Percodan] Allergy (Verified 03/21/18 11:44) Hives Sulfa (Sulfonamide Antibiotics) Allergy (Verified 03/21/18 11:44) Hives cefuroxime Adverse Reaction (Verified 03/21/18 11:44) Unknown Cephalosporins Adverse Reaction (Verified 03/21/18 11:44) Vomiting meperidine HCl [From Demerol] Adverse Reaction (Verified 03/21/18 11:44) Vomiting NSAIDS (Non-Steroidal Anti-Inflamma Adverse Reaction (Verified 03/21/18 11:44) Unknown Home Medications: Ambulatory Orders Medication Instructions Recorded Albuterol Inhaler [Ventolin Hfa] 1 - 2 puff INHALATION Q4H PRN PRN 10/16/17 Cholecalciferol (Vitamin D3) 50,000 unit PO TH 11/28/16 [Vitamin D3] Folic Acid 1 mg PO DAILY 11/28/16 Gabapentin [Neurontin] 300 mg PO 4X/DAY 11/28/16 Levothyroxine [Synthroid] 25 mcg PO DAILY 11/28/16 Oxybutynin [Ditropan] 5 mg PO DAILY 11/28/16 Venlafaxine HCl [Venlafaxine HCl 150 mg PO DAILY 11/28/16 ER] Hydroxyzine HCl 10 mg PO TID 06/13/17 Multivitamin with Iron [Tab-A-Jessica 1 tab PO DAILY 06/13/17 with Iron] Atorvastatin Calcium [Lipitor] 40 mg PO QHS 01/07/18 Melatonin 3 mg PO QHS #30 tablet 03/19/18 Acetaminophen [Tylenol] 1,000 mg PO Q6H PRN PRN 03/21/18 Apixaban [Eliquis] 5 mg PO 0800,199903/21/18 Aspirin [Aspirin, Baby] 81 mg PO DAILY 03/21/18 Buspirone HCl 7.5 mg PO BID 03/21/18 Loratadine 10 mg PO DAILY PRN PRN 03/21/18 Losartan Potassium 50 mg PO DAILY 03/21/18 Metoprolol Tartrate [Lopressor 25 mg PO BID 03/21/18 (beta vineet)] Allopurinol 100 mg PO DAILY 08/20/18 Budesonide/Formoterol 160/4.5 1 puff INHALATION BID 08/20/18 [Symbicort 160/4.5 Mcg Inhaler (SP)] Bumetanide 2 mg PO BID 08/20/18 Famotidine 20 mg PO QHS PRN 08/20/18 Nystatin 1 applic TOPICAL 4X/DAY PRN PRN 08/20/18 Oxygen, Home [Home Oxygen] 6 lpm NASAL CONT 08/20/18 Surgical History: Surgical History (Last Updated 04/05/18 @ 19:06 by Ana Ferrer) History of left heart catheterization Onset Date: 06/16/17 Z98.890 Hx of cholecystectomy Z90.49 Surgical History: cholecystectomy, - - 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 Maternal History Items: - - Denies known cardiac history. Review of Systems Comment: See HPI, otherwise negative x10 systems. Patient Problems: Active and Suspected Problems (Last Updated 08/20/18 @ 16:21 by Evelyn Velasquez MD) Respiratory failure with hypoxia and hypercapnia (Acute) Objective: CT scan of the chest from 06/14/2017 was personally reviewed. This did show significantly enlarged pulmonary artery that was larger in diameter than the aorta. Patient did not have any significant emphysematous changes, but there was significant motion artifact. Chest x-ray from this hospitalization shows pulmonary congestion with generous randolph. Patient's last echocardiogram was completed in June 2017 showing an EF of 75% with stage I diastolic dysfunction, severely dilated right ventricle with dysfunction, moderately enlarged left atrium and a pulmonary artery pressure of 56 mmHg. No previous pulmonary function tests or PSG's are available for review. - Physical Exam General: Alert, Oriented x3, Cooperative, No apparent distress, - - Morbidly obese. Mild conversational dyspnea. No accessory muscle use noted. HEENT: Atraumatic, PERRLA, EOMI, Normocephalic, - - Slight scleral injection without icterus Oral: Moist Mucosa, No Gingival or Mucosal Lesions/ Ulcerations, - - [place] 4 Neck: Supple, No Nodes, Trachea Midline, - - Neck greater than 15 cm Lungs: No rhonchi, Diminished, Rales, Wheezes - Sporadic Cardiovascular: Normal S1, Normal S2, Murmur - Grade 2 out of 6 systolic ejection murmur at the right sternal border, No rub noted, Tachycardic Abdomen: Bowel Sounds Present, Soft, Non Tender, Non-Distended Extremities: No cyanosis, Clubbing, Edema - Bilateral lower extremities Skin: - - Venous stasis changes bilateral Musculoskeletal: No Tenderness to Palpation of Joints or Extremities Lymphatic: No Cervical, Supraclavicular, or Inguinal Adenopathy Neurological: Cranial nerves II-XII grossly intact, Neuro grossly intact, Motor Exam 5/5 strength throughout Psych/Mental Status: Alert and oriented to time, place, person, mood and affect Vital Signs Temp Pulse Resp BP Pulse Ox 36.9 C 101 H 20 H 124/61 H 90 08/23/18 08:25 08/23/18 08:25 08/23/18 08:25 08/23/18 08:25 08/23/18 08:25 Oxygen Flow Rate (L/min) 12 Oxygen Delivery Method Nasal Cannula Weight: 144 kg Body Mass Index (BMI) 53.8 Intake and Output for Last 24 Hours 08/21/18 08/22/18 08/23/18 23:59 23:59 23:59 Intake Total 1465 / 1585 1340 / 1340 240 / 240 Output Total 1650 / 2000 1130 / 1130 700 / 700 Balance -185 / -415 210 / 210 -460 / -460 Laboratory Tests Past 24 Hrs 08/23/18 08/23/18 02:24 06:57 Specimen Type ART Sample Site L Radial pH 7.32 L Bicarbonate Actual 46.5 H POC Total CO2 49 Base Excess 20 H O2 Saturation 79 L ABG pCO2 90.0 H* ABG pO2 51 L Casimiro Test POS O2 Delivery Device Nasal Can Liter Flow 6.0 Blood Gas Notified Whom [facility] Blood Gas Notified Time 219 Sodium 142 Potassium 3.9 Chloride 94 L Carbon Dioxide 44.0 H Anion Gap 4 L BUN 26 H Creatinine 1.25 H Estim Creat Clear Calc 47.60 Est GFR (MDRD) Af Amer 57 L Est GFR (MDRD) Non-Af 47 L BUN/Creatinine Ratio 20.8 H Glucose 101 Calcium 9.0 Clinical Impression(s) from Imaging Studies Chest X-Ray 08/20/18 14:19 IMPRESSION: Vascular congestion and CHF. Bibasilar atelectasis. Electronically Signed: Alvin Schmitt, at 15:19 EDT , Service support , Chest X-Ray 08/22/18 05:55 IMPRESSION: Residual vascular congestion although there has been improvement as compared to prior study. Electronically Signed: Alvin Schmitt, at 9:28 EDT , Service support , Assessment/Plan All Active Problems (Last Updated 08/20/18 @ 16:21 by Evelyn Velasquez MD) Respiratory failure with hypoxia and hypercapnia (Acute) Bronchospasm (Resolved) RECOMMENDATIONS: 1. Continue aggressive diuresis 2. Oxygen to keep saturations 88 to 94% 3. BiPAP with any sleep and for rescue during the day 4. Walking oximetry prior to discharge IMPRESSIONS: 1. Acute on chronic diastolic congestive heart failure/acute on chronic cor pulmonale Patient was significantly dilated RV in the past. Patient has been likely chronically hypoxic for quite some time given her hemoglobin of 15 and reported cyanosis of the feet. Patient is on 5 L nasal cannula, but also has significant CO2 retention. Would recommend keeping saturations 88 to 94% to avoid depression of respiratory drive. Poor long-term prognosis without significant change in current habits. Patient does have a history of pulmonary emboli in the past. Part of the work-up for pulmonary hypertension would include a VQ scan, but this can be completed as an outpatient. We will hold off on transfer to the intensive care unit given patient's goals of therapy. Attempted to communicate to the patient the severity of her current condition. Patient appears to be pre-contemplative at this time. 2. Acute on chronic combined respiratory failure Likely a component secondary to #1. Also contributing would be patient's underlying diagnosis of COPD and uncontrolled obstructive sleep apnea. Patient is not compliant with MANUEL therapy and this is likely leading to recurrent hypoxemia and elevation of pulmonary artery pressures. Patient has stated that she does not want to be intubated. If patient continues to refuse BiPAP therapy, hospice measures would be appropriate. 3. Chronic kidney disease stage III Unclear etiology at this time. Patient does have a history of hypertension in the past, so it is likely secondary to hypertension. Patient may also have an element of venous congestion given high pulmonary artery pressures. Urine output appears to be stable at this time. Would continue to diurese. Patient is down 5 kg over the course of the hospitalization. 4. Morbid obesity/hypertension/hypothyroidism/history of noncompliance/active tobacco abuse Complicates care, management, recovery and prognosis. Okay to continue with baseline medications. Code Visit Inpatient E&M: 65235 Init Hosp L3
[2018-08-23] MEDS: APIXABAN 5 MG TABLET PO ×2 (10:06→21:10)
[2018-08-23] MEDS: Tolterodine Tartrate 2 MG CAP.SA PO (10:07)
[2018-08-23] MEDS: Aspirin 81 MG TAB.CHEW PO (10:07)
[2018-08-23] MEDS: Metoprolol Tartrate 25 MG Tablet PO ×2 (10:07→21:09)
[2018-08-23] MEDS: Gabapentin 300 MG Capsule PO ×2 (10:07→21:09)
[2018-08-23] MEDS: busPIRone 15 MG TABLET 7.5 MG PO ×2 (10:07→21:10)
[2018-08-23] MEDS: Folic Acid 1 MG Tablet PO (10:08)
[2018-08-23] MEDS: Venlafaxine XR 150 MG Capsule PO (10:08)
[2018-08-23] MEDS: Allopurinol 100 MG Tablet PO (10:08)
[2018-08-23] MEDS: Losartan Potassium 50 MG Tablet PO (10:08)
[2018-08-23] MEDS: HYDROcodone Bitartrate/Apap 5/325 Tablet PO ×2 (10:09→21:08)
--- NOTE | 2018-08-23 13:28 | CPS ---
Verbal order from Dr. Pearce for TCO2. Patient TCO2 currently reading 80.4 on bipap, Dr. Pearce made aware.
[2018-08-23] MEDS: Furosemide 40 MG/4 ML Vial IV ×2 (14:50→21:10)
--- NOTE | 2018-08-23 17:41 | PCM.PROGNOTE ---
Patient Problems: Active and Suspected Problems (Last Updated 08/20/18 @ 16:21 by Evelyn Velasquez MD) Respiratory failure with hypoxia and hypercapnia (Acute) Subjective: Seen and examined today, last night's hospitalist talk with the patient because her PCO2 elevated, patient absolutely refused intubation and wanted to be a DNR CC arrest, she also refused to be compliant with BiPAP. Today I had pulmonary medicine see the patient and today she has been compliant with BiPAP, patient will continue to receive IV diuresis. Today patient appears lethargic and sleepy. Nursing states she got up to walk and her legs gave out. Patient refused to go to an extended care facility for short-term rehab yesterday, I will have to have an conversation with her tomorrow about this topic again. - Physical Exam General: No apparent distress, Well developed, Lethargic HEENT: Atraumatic, PERRLA, EOMI, Normocephalic Oral: Moist Mucosa Neck: Supple, Trachea Midline, Thyroid Normal Size and Texture Lungs: Clear to auscultation, Diminished Cardiovascular: Regular rate, Regular Rhythm, Normal S1, Normal S2, No murmurs Abdomen: Bowel Sounds Present, Soft, Non Tender, Non-Distended, No hernias noted Extremities: No clubbing, No cyanosis, No edema, Capillary Refill Less than 3 Seconds Skin: No rashes, No breakdown Neurological: Cranial nerves II-XII grossly intact, Neuro grossly intact, Sensory exam intact to light touch and pain Psych/Mental Status: Normal Affect, Appropriate, Alert and oriented to time, place, person, mood and affect Vital Signs Temp Pulse Resp BP Pulse Ox 97.7 F L 84 18 111/67 91 08/23/18 14:43 08/23/18 15:17 08/23/18 15:17 08/23/18 14:43 08/23/18 15:17 Oxygen Flow Rate (L/min) 12 Oxygen Delivery Method Bi-pap Weight: 144 kg Body Mass Index (BMI) 53.8 Intake and Output for Last 24 Hours 08/21/18 08/22/18 08/23/18 23:59 23:59 23:59 Intake Total 1465 / 1585 1340 / 1340 960 / 960 Output Total 1650 / 2000 1130 / 1130 1800 / 1800 Balance -185 / -415 210 / 210 -840 / -840 Laboratory Tests Past 24 Hrs 08/23/18 08/23/18 02:24 06:57 Specimen Type ART Sample Site L Radial pH 7.32 L Bicarbonate Actual 46.5 H POC Total CO2 49 Base Excess 20 H O2 Saturation 79 L ABG pCO2 90.0 H* ABG pO2 51 L Casimiro Test POS O2 Delivery Device Nasal Can Liter Flow 6.0 Blood Gas Notified Whom HOSP Blood Gas Notified Time 219 Sodium 142 Potassium 3.9 Chloride 94 L Carbon Dioxide 44.0 H Anion Gap 4 L BUN 26 H Creatinine 1.25 H Estim Creat Clear Calc 47.60 Est GFR (MDRD) Af Amer 57 L Est GFR (MDRD) Non-Af 47 L BUN/Creatinine Ratio 20.8 H Glucose 101 Calcium 9.0 Medical Necessity - Tobacco Use Smoking Status: Current every day smoker Tobacco Use: Cigarettes Assessment/Plan All Active Problems (Last Updated 08/20/18 @ 16:21 by Evelyn Velasquez MD) Respiratory failure with hypoxia and hypercapnia (Acute) Bronchospasm (Resolved) #1 acute diastolic congestive heart failure-continue IV Lasix, monitor urine output #2 chronic hypoxic and hypercapnic respiratory failure-pulse ox will be monitored, patient tolerating BiPAP at this time, pulmonary medicine is participating in her care #3 morbid obesity #4 obstructive sleep apnea-noncompliant with treatment, I will approach the patient about using BiPAP at home at the time of discharge #5 hypertension #6 hypothyroidism #7 chronic kidney disease stage III-etiology unknown #8 chronic obstructive pulmonary disease #9 moderate pulmonary hypertension #10 noncompliance with medical regimen Code Visit Inpatient E&M: 36708 Subs Hosp L2
[2018-08-23] MEDS: Atorvastatin Calcium 40 MG Tablet PO (21:09)
[2018-08-23] MEDS: MELATONIN 3 MG TABLET PO (21:34)
[2018-08-24] VITALS (29 sets, daily range): BP systolic 98–137; BP diastolic 62–96; PULSE 75–107; RESP 14–23; TEMP 36.6–37.1; O2SAT 87–96
[2018-08-24] MEDS: Levothyroxine 25 MCG TABLET PO (05:55)
[2018-08-24] MEDS: hydrOXYzine 10 MG Tablet PO ×3 (05:55→21:54)
[2018-08-24] MEDS: HYDROcodone Bitartrate/Apap 5/325 Tablet PO ×2 (05:55→14:36)
[2018-08-24] MEDS: Furosemide 40 MG/4 ML Vial IV ×3 (05:57→21:55)
[2018-08-24] MEDS: Nystatin Powder 15gm Bottle 1 APPLIC TOPICAL ×3 (06:08→21:55)
--- NOTE | 2018-08-24 06:18 | CPS ---
Called by RN, notified that patient was found on nasal cannula, however, the flowmeter was not on. She was satting 47% on room air. RN stated she placed patient on BiPAP and was requesting [employer] to verify that FiO2 on BiPAP was sufficient. Upon entering room, patient was on BiPAP, sat at 93% and TCPCO2 at 74.5, resp rate at 18, no distress noted.
[2018-08-24 06:30] LABS: Bedside Glucose 138 mg/dL (70-110)
[2018-08-24] MEDS: Ipratropium/Albuterol Sulfate 3 ML AMPUL.NEB INHALATION ×4 (07:13→19:50)
--- NOTE | 2018-08-24 07:35 | CPS ---
Patient taken off BiPAP per patient request. Patient placed on high flow nasal cannula at 8 lpm. Aerosol given. Sats after aerosol at 96%, flow decreased to 7lpm. Patient wanted to wait until after breakfast to go back on BiPAP. TCPCO2 was around 83. Sat at 93 on the 7lpm. RN aware.
[2018-08-24 08:10] LABS: BUN 24 mg/dL (7-18); BUN/Creat Ratio 20.2 RATIO (10-20); Calcium,Total 9.2 mg/dL (8.5-10.1); Carbon Dioxide > 45.0 mmol/L (21.0-32.0); Chloride 88 mmol/L (98-107); Creatinine, Serum 1.19 mg/dL (0.55-1.02); EST Glomerular Filtration Rate 50 mL/min (>60); Est Glom Filt Rate - Afr Amer 61 mL/min (>60); Glucose 107 mg/dL (74-106); Magnesium 1.5 mg/dL (1.6-2.6); Phosphorus 2.9 mg/dL (2.5-4.9); Potassium 3.4 mmol/L (3.5-5.1); Sodium Level 140 mmol/L (136-145)
--- NOTE | 2018-08-24 09:34 | PCM.PN.PUL ---
Patient Problems: Active and Suspected Problems (Last Updated 08/20/18 @ 16:21 by Evelyn Velasquez MD) Respiratory failure with hypoxia and hypercapnia (Acute) Subjective: Patient feels subjectively improved compared to yesterday. Patient did actually comply with BiPAP therapy for most of the day yesterday. Patient continues with active diuresis. Patient did have a fall yesterday with no injuries reported. Patient remains on high flow nasal cannula oxygen when not on BiPAP. - Physical Exam General: Alert, Oriented x3, Cooperative, No apparent distress, - - Morbidly obese. Speaking in full sentences. HEENT: Atraumatic, PERRLA, EOMI, Normocephalic, - - No scleral icterus or injection noted. Oral: No Gingival or Mucosal Lesions/ Ulcerations, Dry Mucosa Neck: Supple, No Nodes, Trachea Midline, JVD, Right Lungs: No rhonchi, No rales, Diminished, Wheezes - Sporadic, - - Symmetric expansion. Cardiovascular: Regular rate, Regular Rhythm, Normal S1, Normal S2, Murmur, No rub noted, No Gallop Abdomen: Bowel Sounds Present, Soft, Non Tender, Non-Distended, Obese Extremities: No cyanosis, Clubbing, Edema Skin: - - Venous stasis changes. Musculoskeletal: No Tenderness to Palpation of Joints or Extremities Lymphatic: No Cervical, Supraclavicular, or Inguinal Adenopathy Neurological: Cranial nerves II-XII grossly intact, Neuro grossly intact, Motor Exam 5/5 strength throughout Psych/Mental Status: Flat Affect, Impulsive Vital Signs Temp Pulse Resp BP Pulse Ox 37.0 C 85 18 105/66 93 08/24/18 02:40 08/24/18 07:06 08/24/18 06:34 08/24/18 02:40 08/24/18 07:40 Oxygen Flow Rate (L/min) 7 Oxygen Delivery Method Nasal Cannula Weight: 139 kg Body Mass Index (BMI) 53.8 Intake and Output for Last 24 Hours 08/22/18 08/23/18 08/24/18 23:59 23:59 23:59 Intake Total 1340 / 1340 960 / 1430 720 / 720 Output Total 1130 / 1130 1800 / 2700 2250 / 2250 Balance 210 / 210 -840 / -1270 -1530 / -1530 Laboratory Tests Past 24 Hrs 08/24/18 06:30 Sodium 140 Potassium 3.4 L Chloride 88 L Carbon Dioxide > 45.0 H* Anion Gap TNP BUN 24 H Creatinine 1.19 H Estim Creat Clear Calc 50.00 Est GFR (MDRD) Af Amer 61 Est GFR (MDRD) Non-Af 50 L BUN/Creatinine Ratio 20.2 H Glucose 107 H Calcium 9.2 Phosphorus 2.9 Magnesium 1.5 L POC Glucose 08/24/18 06:16 POC Glucose 138 H Medical Necessity - Tobacco Use Smoking Status: Current every day smoker Tobacco Use: Cigarettes Assessment/Plan All Active Problems (Last Updated 08/20/18 @ 16:21 by Evelyn Velasquez MD) Respiratory failure with hypoxia and hypercapnia (Acute) Bronchospasm (Resolved) RECOMMENDATIONS: 1. Continue aggressive diuresis 2. Oxygen to keep saturations 88 to 94% 3. BiPAP with any sleep and for rescue during the day 4. Walking oximetry prior to discharge IMPRESSIONS: 1. Acute on chronic diastolic congestive heart failure/acute on chronic cor pulmonale Patient was significantly dilated RV in the past. Patient has been likely chronically hypoxic for quite some time given her hemoglobin of 15 and reported cyanosis of the feet. Patient is on 5 L nasal cannula, but also has significant CO2 retention. Would recommend keeping saturations 88 to 94% to avoid depression of respiratory drive. Poor long-term prognosis without significant change in current habits. Patient has improved compliance with BiPAP therapy, which will be helpful. We will continue with diuresis as long as renal function tolerates. Patient is down 10.7 kg over the course of the hospitalization. 2. Acute on chronic combined respiratory failure Likely a component secondary to #1. Also contributing would be patient's underlying diagnosis of COPD and uncontrolled obstructive sleep apnea. Patient is not compliant with MANUEL therapy and this is likely leading to recurrent hypoxemia and elevation of pulmonary artery pressures. Patient has stated that she does not want to be intubated. Patient will likely require a outpatient titration polysomnogram for optimization of BiPAP settings. 3. Chronic kidney disease stage III Unclear etiology at this time. Patient does have a history of hypertension in the past, so it is likely secondary to hypertension. Patient may also have an element of venous congestion given high pulmonary artery pressures. Urine output appears to be stable at this time. Would continue to diurese. 4. Morbid obesity/hypertension/hypothyroidism/history of noncompliance/active tobacco abuse/hypomagnesemia/hypokalemia Complicates care, management, recovery and prognosis. Okay to continue with baseline medications. Electrolyte replacement as indicated Code Visit Inpatient E&M: 94539 Subs Hosp L3
--- NOTE | 2018-08-24 10:25 | CPS ---
Heated humidity added to BiPAP.
[2018-08-24] MEDS: Gabapentin 300 MG Capsule PO ×4 (10:27→21:54)
[2018-08-24] MEDS: busPIRone 15 MG TABLET 7.5 MG PO ×2 (10:27→21:54)
[2018-08-24] MEDS: Tolterodine Tartrate 2 MG CAP.SA PO (10:28)
[2018-08-24] MEDS: Venlafaxine XR 150 MG Capsule PO (10:28)
[2018-08-24] MEDS: Metoprolol Tartrate 25 MG Tablet PO ×2 (10:28→21:54)
[2018-08-24] MEDS: Aspirin 81 MG TAB.CHEW PO (10:28)
[2018-08-24] MEDS: Folic Acid 1 MG Tablet PO (10:28)
[2018-08-24] MEDS: Losartan Potassium 50 MG Tablet PO (10:28)
[2018-08-24] MEDS: Allopurinol 100 MG Tablet PO (10:28)
[2018-08-24] MEDS: APIXABAN 5 MG TABLET PO ×2 (10:28→21:54)
--- NOTE | 2018-08-24 10:47 | CPS ---
Patient taken off BiPAP at this time for aerosol treatment.
--- NOTE | 2018-08-24 12:15 | CASEMGMT ---
SW spoke with patient about going to a SNF as she fell and she is pretty weak. Patient was adamant she is going home. Stephanie BOUDREAUX MSW
--- NOTE | 2018-08-24 13:03 | CASEMGMT ---
Addendum entered by Prerna Huggins 08/24/18 13:14: Patience from [facility] states that they can take pt for RN, PT/OT at this time. Nikolas FLOYD CM Original Note: Pt declines SNF placement at this time but is agreeable to HHC at this time. Call to [facility] but pt is straight [place] and they do not take at this time. Call to [facility] and she states they should be able to take pt and referral faxed at this time. Pt also states that she has been trying to get aides set up thru waiver program also. Green sheet to be left on chart for possible increased home oxygen need and HHC. Nikolas FLOYD CM
[2018-08-24] MEDS: Acetaminophen 325 MG Tablet 650 MG PO (18:50)
--- NOTE | 2018-08-24 19:29 | PCM.PROGNOTE ---
Patient Problems: Active and Suspected Problems (Last Updated 08/20/18 @ 16:21 by Evelyn Velasquez MD) Respiratory failure with hypoxia and hypercapnia (Acute) Subjective: Patient was seen and examined today, she is alert and has been using BiPAP off and on during the day. She states she does not want to go to an extended care facility for short-term rehab and would prefer to go home. - Physical Exam General: Alert, Oriented x3, Cooperative, No apparent distress, Well developed HEENT: Atraumatic, PERRLA, EOMI, Normocephalic Oral: Moist Mucosa Neck: Supple, Trachea Midline, Thyroid Normal Size and Texture Lungs: Clear to auscultation, Normal air movement, No rhonchi, No wheeze, No rales Cardiovascular: Regular rate, Regular Rhythm, Normal S1, Normal S2, No murmurs, No Ectopic Activity Abdomen: Bowel Sounds Present, Soft, Non Tender, Non-Distended, No hernias noted Extremities: No clubbing, No cyanosis, No edema, Capillary Refill Less than 3 Seconds Skin: No rashes, No breakdown Musculoskeletal: No Tenderness to Palpation of Joints or Extremities Neurological: Cranial nerves II-XII grossly intact, Neuro grossly intact, Sensory exam intact to light touch and pain, Coordination normal Psych/Mental Status: Normal Affect, Appropriate, Alert and oriented to time, place, person, mood and affect Vital Signs Temp Pulse Resp BP Pulse Ox 98.6 F 94 18 109/66 90 08/24/18 18:42 08/24/18 18:42 08/24/18 18:42 08/24/18 18:42 08/24/18 18:42 Oxygen Flow Rate (L/min) 7 Oxygen Delivery Method Nasal Cannula Weight: 139 kg Body Mass Index (BMI) 53.8 Intake and Output for Last 24 Hours 08/22/18 08/23/18 08/24/18 23:59 23:59 23:59 Intake Total 1340 / 1340 960 / 1430 1520 / 1520 Output Total 1130 / 1130 1800 / 2700 2250 / 2250 Balance 210 / 210 -840 / -1270 -730 / -730 Laboratory Tests Past 24 Hrs 08/24/18 06:30 Sodium 140 Potassium 3.4 L Chloride 88 L Carbon Dioxide > 45.0 H* Anion Gap TNP BUN 24 H Creatinine 1.19 H Estim Creat Clear Calc 50.00 Est GFR (MDRD) Af Amer 61 Est GFR (MDRD) Non-Af 50 L BUN/Creatinine Ratio 20.2 H Glucose 107 H Calcium 9.2 Phosphorus 2.9 Magnesium 1.5 L POC Glucose 08/24/18 06:16 POC Glucose 138 H Medical Necessity - Tobacco Use Smoking Status: Current every day smoker Tobacco Use: Cigarettes Assessment/Plan All Active Problems (Last Updated 08/20/18 @ 16:21 by Evelyn Velasquez MD) Respiratory failure with hypoxia and hypercapnia (Acute) Bronchospasm (Resolved) #1 acute diastolic congestive heart failure-continue IV Lasix, monitor urine output #2 chronic hypoxic and hypercapnic respiratory failure-pulse ox will be monitored, patient tolerating BiPAP at this time, pulmonary medicine is participating in her care #3 morbid obesity #4 obstructive sleep apnea-patient is currently midmorning BiPAP in the hospital, she will need set up with this when she is discharged home #5 hypertension #6 hypothyroidism #7 chronic kidney disease stage III-etiology unknown #8 chronic obstructive pulmonary disease #9 moderate pulmonary hypertension #10 noncompliance with medical regimen Code Visit Inpatient E&M: 22889 Subs Hosp L2
--- NOTE | 2018-08-24 19:50 | CPS ---
increased BIPAP pressure to 12/8 and FIO2 to 60% for low sats
[2018-08-24] MEDS: Atorvastatin Calcium 40 MG Tablet PO (21:54)
[2018-08-24] MEDS: MELATONIN 3 MG TABLET PO (21:54)
[2018-08-25] VITALS (17 sets, daily range): BP systolic 109–123; BP diastolic 65–89; PULSE 86–96; RESP 14–20; TEMP 36.6–36.9; O2SAT 60–96
[2018-08-25] MEDS: Levothyroxine 25 MCG TABLET PO (04:03)
[2018-08-25] MEDS: hydrOXYzine 10 MG Tablet PO ×3 (04:03→22:39)
[2018-08-25] MEDS: Menthol/Lanolin/Calamine/Znox 113 GM Tube 1 APPLIC TOPICAL ×3 (04:08→22:32)
[2018-08-25] MEDS: Nystatin Powder 15gm Bottle 1 APPLIC TOPICAL ×3 (04:08→22:33)
[2018-08-25] MEDS: Furosemide 40 MG/4 ML Vial IV ×3 (05:08→22:33)
[2018-08-25] MEDS: 0.9% NaCl Peripheral Flush Adult/Peds IV ×2 (05:08→22:35)
[2018-08-25] MEDS: Ipratropium/Albuterol Sulfate 3 ML AMPUL.NEB INHALATION ×4 (07:20→19:28)
[2018-08-25] MEDS: Aspirin 81 MG TAB.CHEW PO (07:41)
[2018-08-25] MEDS: Acetaminophen 325 MG Tablet 650 MG PO (07:41)
[2018-08-25] MEDS: APIXABAN 5 MG TABLET PO ×2 (07:41→20:07)
--- NOTE | 2018-08-25 07:47 | PN_ITS ---
Patient Problems: Active and Suspected Problems (Last Updated 08/20/18 @ 16:21 by Evelyn Velasquez MD) Respiratory failure with hypoxia and hypercapnia (Acute) Subjective: Patient did okay overnight. Nursing reports patient required frequent feedback on keeping BiPAP in place. Patient is continued to diurese well and feels funez bjective improvement. Transcutaneous CO2 monitor has been between 78 and 85 through the evening. Patient was found sleeping without her BiPAP in place. Nursing does report patient is removed BiPAP overnight with saturations in the 60s. - Physical Exam General: Oriented x3, Cooperative, No apparent distress, - - RASS -1. Morbidly obese. No conversational dyspnea. HEENT: Atraumatic, PERRLA, EOMI, Normocephalic, - - Slight scleral injection Oral: No Gingival or Mucosal Lesions/ Ulcerations, Dry Mucosa Neck: Supple, No Nodes, Trachea Midline, JVD, Right Lungs: No rhonchi, No wheeze, No rales, Diminished Cardiovascular: Regular rate, Regular Rhythm, Normal S1, Normal S2, Murmur, No rub noted, No Gallop Abdomen: Bowel Sounds Present, Soft, Non Tender, Non-Distended, Obese Extremities: No cyanosis, Clubbing, Edema Skin: - - No change compared to previous Musculoskeletal: No Tenderness to Palpation of Joints or Extremities Lymphatic: No Cervical, Supraclavicular, or Inguinal Adenopathy Neurological: Cranial nerves II-XII grossly intact, Neuro grossly intact, Motor Exam 5/5 strength throughout Psych/Mental Status: Appropriate, Flat Affect Vital Signs Temp Pulse Resp BP Pulse Ox 36.6 C 86 16 123/89 H 93 08/25/18 04:05 08/25/18 04:10 08/25/18 04:10 08/25/18 04:05 08/25/18 04:10 Oxygen Flow Rate (L/min) 91 Oxygen Delivery Method Bi-pap Weight: 135 kg Body Mass Index (BMI) 53.8 Intake and Output for Last 24 Hours 08/23/18 08/24/18 08/25/18 23:59 23:59 23:59 Intake Total 960 / 1430 1520 / 1760 360 / 360 Output Total 1800 / 2700 2250 / 2750 1050 / 1050 Balance -840 / -1270 -730 / -990 -690 / -690 Laboratory Tests Past 24 Hrs 08/24/18 06:30 Sodium 140 Potassium 3.4 L Chloride 88 L Carbon Dioxide > 45.0 H* Anion Gap TNP BUN 24 H Creatinine 1.19 H Estim Creat Clear Calc 50.00 Est GFR (MDRD) Af Amer 61 Est GFR (MDRD) Non-Af 50 L BUN/Creatinine Ratio 20.2 H Glucose 107 H Calcium 9.2 Phosphorus 2.9 Magnesium 1.5 L Medical Necessity - Tobacco Use Smoking Status: Current every day smoker Tobacco Use: Cigarettes Assessment/Plan All Active Problems (Last Updated 08/20/18 @ 16:21 by Evelyn Velasquez MD) Respiratory failure with hypoxia and hypercapnia (Acute) Bronchospasm (Resolved) RECOMMENDATIONS: 1. Continue aggressive diuresis 2. Oxygen to keep saturations 88 to 94% 3. BiPAP with any sleep and for rescue during the day 4. Walking oximetry prior to discharge IMPRESSIONS: 1. Acute on chronic diastolic congestive heart failure/acute on chronic cor pulmonale Patient was significantly dilated RV in the past. Patient has been likely chronically hypoxic for quite some time given her hemoglobin of 15 and reported cyanosis of the feet. Would recommend keeping saturations 88 to 94% to avoid depression of respiratory drive. Poor long-term prognosis without significant change in current habits. Patient has improved compliance with BiPAP therapy, which will be helpful. We will continue with diuresis as long as renal function tolerates. Patient is down almost 15 kg over the course of the hospitalization, without a significant change in renal function. 2. Acute on chronic combined respiratory failure Likely a component secondary to #1. Also contributing would be patient's underlying diagnosis of COPD and uncontrolled obstructive sleep apnea. Patient is not compliant with MANUEL therapy and this is likely leading to recurrent hypoxemia and elevation of pulmonary artery pressures. Patient has stated that she does not want to be intubated. Patient will likely require a outpatient titration polysomnogram for optimization of BiPAP settings. We will continue to monitor with transcutaneous CO2. 3. Chronic kidney disease stage III Unclear etiology at this time. Patient does have a history of hypertension in the past, so it is likely secondary to hypertension. Patient may also have an element of venous congestion given high pulmonary artery pressures. Urine output appears to be stable at this time. Would continue to diurese. We will continue to monitor renal function on a daily basis 4. Morbid obesity/hypertension/hypothyroidism/history of noncompliance/active tobacco abuse/hypomagnesemia/hypokalemia Complicates care, management, recovery and prognosis. Okay to continue with baseline medications. Electrolyte replacement as indicated Code Visit Inpatient E&M: 47157 Subs Hosp L3
[2018-08-25 08:18] LABS: BUN 26 mg/dL (7-18); BUN/Creat Ratio 21.5 RATIO (10-20); Calcium,Total 9.6 mg/dL (8.5-10.1); Carbon Dioxide > 45.0 mmol/L (21.0-32.0); Chloride 83 mmol/L (98-107); Creatinine, Serum 1.21 mg/dL (0.55-1.02); EST Glomerular Filtration Rate 49 mL/min (>60); Est Glom Filt Rate - Afr Amer 59 mL/min (>60); Estimated Creatinine Clearance 49.18 ml/min; Glucose 126 mg/dL (74-106); Potassium 3.4 mmol/L (3.5-5.1); Sodium Level 137 mmol/L (136-145)
[2018-08-25] MEDS: Metoprolol Tartrate 25 MG Tablet PO ×2 (10:59→22:33)
[2018-08-25] MEDS: Folic Acid 1 MG Tablet PO (10:59)
[2018-08-25] MEDS: Allopurinol 100 MG Tablet PO (10:59)
[2018-08-25] MEDS: Venlafaxine XR 150 MG Capsule PO (11:00)
[2018-08-25] MEDS: Tolterodine Tartrate 2 MG CAP.SA PO (11:00)
[2018-08-25] MEDS: Gabapentin 300 MG Capsule PO ×4 (11:00→22:34)
[2018-08-25] MEDS: busPIRone 15 MG TABLET 7.5 MG PO ×2 (11:00→22:32)
[2018-08-25] MEDS: Losartan Potassium 50 MG Tablet PO (11:01)
--- NOTE | 2018-08-25 11:35 | CM.ED ---
SOCIAL WORK FOLLOW UP WITH PATIENT FOR D/C PLANNING. DISCUSSED [facility]. PATIENT STILL REFUSING CORRECTION PLACEMENT. PATIENT WISHES TO RETURN HOME WITH HOME HEALTH CARE. PLAN: HOME WITH HOME HEALTH.
[2018-08-25] MEDS: HYDROcodone Bitartrate/Apap 5/325 Tablet PO ×2 (14:58→22:38)
--- NOTE | 2018-08-25 22:25 | CPS ---
Pt not ready for BiPAP yet.
[2018-08-25] MEDS: MELATONIN 3 MG TABLET PO (22:33)
[2018-08-25] MEDS: Atorvastatin Calcium 40 MG Tablet PO (22:33)
[2018-08-26] VITALS (29 sets, daily range): BP systolic 83–135; BP diastolic 51–88; PULSE 74–97; RESP 14–22; TEMP 36.4–36.8; O2SAT 87–91
--- NOTE | 2018-08-26 03:00 | NURSING ---
Pt. wanted bipap off at this time for sip of water. She stated we could put it back on after she fell asleep.
--- NOTE | 2018-08-26 04:00 | NURSING ---
Attempted to place pt. back on bipap, but she refused. Again stated,Wait till I fall asleep . O2 sat on 6L 89%. No distress noted. Pt. triggering Q 2 hr. VS so pt unable to fall asleep due to frequent VS.
[2018-08-26] MEDS: 0.9% NaCl Peripheral Flush Adult/Peds IV ×2 (06:15→11:17)
[2018-08-26] MEDS: Furosemide 40 MG/4 ML Vial IV (06:15)
[2018-08-26] MEDS: Nystatin Powder 15gm Bottle 1 APPLIC TOPICAL ×3 (06:17→22:16)
[2018-08-26] MEDS: Menthol/Lanolin/Calamine/Znox 113 GM Tube 1 APPLIC TOPICAL ×3 (06:17→22:16)
[2018-08-26] MEDS: hydrOXYzine 10 MG Tablet PO ×3 (06:17→22:15)
[2018-08-26] MEDS: Levothyroxine 25 MCG TABLET PO (06:18)
--- NOTE | 2018-08-26 06:31 | NURSING ---
Notified RT that pt. had Bipap off from 0300 until 0630. At 0630 pt. agreed to put Bipap mask back on. No distress noted. Will monitor.
[2018-08-26 06:42] LABS: BUN 25 mg/dL (7-18); BUN/Creat Ratio 23.1 RATIO (10-20); Calcium,Total 9.3 mg/dL (8.5-10.1); Carbon Dioxide > 45.0 mmol/L (21.0-32.0); Chloride 83 mmol/L (98-107); Creatinine, Serum 1.08 mg/dL (0.55-1.02); EST Glomerular Filtration Rate 56 mL/min (>60); Est Glom Filt Rate - Afr Amer 68 mL/min (>60); Glucose 117 mg/dL (74-106); Sodium Level 137 mmol/L (136-145)
[2018-08-26] MEDS: Ipratropium/Albuterol Sulfate 3 ML AMPUL.NEB INHALATION ×4 (07:22→18:45)
--- NOTE | 2018-08-26 07:50 | PN_ITS ---
Patient Problems: Active and Suspected Problems (Last Updated 08/20/18 @ 16:21 by Evelyn Velasquez MD) Respiratory failure with hypoxia and hypercapnia (Acute) Subjective: Patient did okay overnight. Patient does remain on BiPAP therapy for the majority of the time, but transcutaneous CO2 was 84 on my arrival this morning. Patient continues to diurese, but inputs and outputs are inaccurate secondary to incontinence. Off of BiPAP, patient is still requiring 6 L nasal cannula to maintain acceptable saturations. Patient feels subjectively improved compared to yesterday. - Physical Exam General: Alert, Oriented x3, Cooperative, No apparent distress, - - Morbidly obese. Speaking in full sentences. HEENT: Atraumatic, PERRLA, EOMI, Normocephalic, - - No scleral icterus or injection noted. Oral: Moist Mucosa, No Gingival or Mucosal Lesions/ Ulcerations Neck: Supple, No JVD, No Nodes, Trachea Midline Lungs: No rhonchi, No wheeze, Diminished, Rales, - - Symmetric expansion. No d ullness to percussion. Cardiovascular: Regular rate, Regular Rhythm, Normal S1, Normal S2, No murmurs, No rub noted, No Gallop Abdomen: Bowel Sounds Present, Soft, Non Tender, Non-Distended, Obese Extremities: No cyanosis, No edema, Clubbing Skin: - - No significant change compared to previous Musculoskeletal: No Tenderness to Palpation of Joints or Extremities Lymphatic: No Cervical, Supraclavicular, or Inguinal Adenopathy Neurological: Cranial nerves II-XII grossly intact, Neuro grossly intact, Motor Exam 5/5 strength throughout Psych/Mental Status: Alert and oriented to time, place, person, mood and affect Vital Signs Temp Pulse Resp BP Pulse Ox 36.4 C L 83 16 111/88 H 90 08/26/18 06:00 08/26/18 07:14 08/26/18 06:00 08/26/18 06:00 08/26/18 06:00 Oxygen Flow Rate (L/min) 6 Oxygen Delivery Method Nasal Cannula Weight: 136.5 kg Body Mass Index (BMI) 53.8 Intake and Output for Last 24 Hours 08/24/18 08/25/18 08/26/18 23:59 23:59 23:59 Intake Total 1520 / 1760 1370 / 1370 150 / 150 Output Total 2250 / 2750 4200 / 4200 700 / 700 Balance -730 / -990 -2830 / -2830 -550 / -550 Laboratory Tests Past 24 Hrs 08/25/18 08/26/18 07:42 05:53 Sodium 137 137 Potassium 3.4 L 3.0 L Chloride 83 L 83 L Carbon Dioxide > 45.0 H* > 45.0 H* Anion Gap TNP TNP BUN 26 H 25 H Creatinine 1.21 H 1.08 H Estim Creat Clear Calc 49.18 55.10 Est GFR (MDRD) Af Amer 59 L 68 Est GFR (MDRD) Non-Af 49 L 56 L BUN/Creatinine Ratio 21.5 H 23.1 H Glucose 126 H 117 H Calcium 9.6 9.3 Medical Necessity - Tobacco Use Smoking Status: Current every day smoker Tobacco Use: Cigarettes Assessment/Plan All Active Problems (Last Updated 08/20/18 @ 16:21 by Evelyn Velasquez MD) Respiratory failure with hypoxia and hypercapnia (Acute) Bronchospasm (Resolved) RECOMMENDATIONS: 1. Continue aggressive diuresis 2. Oxygen to keep saturations 88 to 94% 3. BiPAP with any sleep and for rescue during the day 4. Walking oximetry prior to discharge IMPRESSIONS: 1. Acute on chronic diastolic congestive heart failure/acute on chronic cor pulmonale Patient was significantly dilated RV in the past. Patient has been likely chronically hypoxic for quite some time given her hemoglobin of 15 and reported cyanosis of the feet. Would recommend keeping saturations 88 to 94% to avoid depression of respiratory drive. Poor long-term prognosis without significant change in current habits. Patient has improved compliance with BiPAP therapy, which will be helpful. We will continue with diuresis as long as renal function tolerates. Patient is down over 21 kg over the course of the hospitalization, without a significant change in renal function. 2. Acute on chronic combined respiratory failure Likely a component secondary to #1. Also contributing would be patient's underlying diagnosis of COPD and uncontrolled obstructive sleep apnea. Patient is not compliant with MANUEL therapy and this is likely leading to recurrent hypoxemia and elevation of pulmonary artery pressures. Patient has stated that she does not want to be intubated. Patient will likely require a outpatient titration polysomnogram for optimization of BiPAP settings. We will continue to monitor with transcutaneous CO2. 3. Chronic kidney disease stage III Unclear etiology at this time. Clinical suspicion for cardiorenal syndrome. Patient does have a history of hypertension in the past, so it is likely secondary to hypertension. Patient may also have an element of venous congestion given high pulmonary artery pressures. Urine output appears to be stable at this time. Would continue to diurese. We will continue to monitor renal function on a daily basis 4. Morbid obesity/hypertension/hypothyroidism/history of noncompliance/active tobacco abuse/hypomagnesemia/hypokalemia Complicates care, management, recovery and prognosis. Okay to continue with baseline medications. Electrolyte replacement as indicated Code Visit Inpatient E&M: 36238 Subs Hosp L2
[2018-08-26] MEDS: busPIRone 15 MG TABLET 7.5 MG PO ×2 (09:47→22:16)
[2018-08-26] MEDS: Tolterodine Tartrate 2 MG CAP.SA PO (09:47)
[2018-08-26] MEDS: Gabapentin 300 MG Capsule PO ×4 (09:47→22:15)
[2018-08-26] MEDS: Aspirin 81 MG TAB.CHEW PO (09:48)
[2018-08-26] MEDS: Venlafaxine XR 150 MG Capsule PO (09:48)
[2018-08-26] MEDS: APIXABAN 5 MG TABLET PO ×2 (09:48→22:16)
[2018-08-26] MEDS: Allopurinol 100 MG Tablet PO (09:49)
[2018-08-26] MEDS: Metoprolol Tartrate 25 MG Tablet PO ×2 (09:49→22:15)
[2018-08-26] MEDS: Folic Acid 1 MG Tablet PO (09:49)
[2018-08-26] MEDS: Losartan Potassium 50 MG Tablet PO (09:57)
[2018-08-26] MEDS: Acetaminophen 325 MG Tablet 650 MG PO ×2 (09:57→22:24)
--- NOTE | 2018-08-26 17:23 | PCM.PROGNOTE ---
Patient Problems: Active and Suspected Problems (Last Updated 08/20/18 @ 16:21 by Evelyn Velasquez MD) Respiratory failure with hypoxia and hypercapnia (Acute) Subjective: Patient was seen and examined today, she still would like to return home rather than go to an extended care facility. BiPAP and a stronger O2 concentrator will need to be set up for her at home before she leaves the hospital. I talked briefly about her care with pulmonary medicine today. I also talked to the patient about staying off cigarettes when she goes home, she is not sure she can do that. Late this afternoon, patient's blood pressure was low and I held her IV Lasix. Patient has lost 17 kg during her hospitalization and diuresis. - Physical Exam General: Alert, Oriented x3, Cooperative, No apparent distress, Well developed, Well nourished HEENT: Atraumatic, PERRLA, EOMI, Normocephalic Oral: Moist Mucosa Neck: Supple, Trachea Midline, Thyroid Normal Size and Texture Lungs: Clear to auscultation, No rhonchi, No wheeze, No rales, Diminished Cardiovascular: Regular rate, Regular Rhythm, Normal S1, Normal S2, No murmurs, No Ectopic Activity Abdomen: Bowel Sounds Present, Soft, Non Tender, Non-Distended, Obese Extremities: No clubbing, No cyanosis, No edema, Capillary Refill Less than 3 Seconds, - - Evidence of peripheral cyanosis is noted in the toes and feet Skin: No rashes, No breakdown Musculoskeletal: No Tenderness to Palpation of Joints or Extremities Neurological: Cranial nerves II-XII grossly intact, Neuro grossly intact, Sensory exam intact to light touch and pain, Coordination normal Psych/Mental Status: Normal Affect, Appropriate, Alert and oriented to time, place, person, mood and affect Vital Signs Temp Pulse Resp BP Pulse Ox 98.2 F 86 18 98/56 L 90 08/26/18 16:49 08/26/18 16:49 08/26/18 16:49 08/26/18 16:49 08/26/18 16:49 Oxygen Flow Rate (L/min) 6 Oxygen Delivery Method Nasal Cannula Weight: 136.5 kg Body Mass Index (BMI) 53.8 Intake and Output for Last 24 Hours 08/24/18 08/25/18 08/26/18 23:59 23:59 23:59 Intake Total 1520 / 1760 1370 / 1370 625 / 625 Output Total 2250 / 2750 4200 / 4200 1000 / 1000 Balance -730 / -990 -2830 / -2830 -375 / -375 Laboratory Tests Past 24 Hrs 08/26/18 05:53 Sodium 137 Potassium 3.0 L Chloride 83 L Carbon Dioxide > 45.0 H* Anion Gap TNP BUN 25 H Creatinine 1.08 H Estim Creat Clear Calc 55.10 Est GFR (MDRD) Af Amer 68 Est GFR (MDRD) Non-Af 56 L BUN/Creatinine Ratio 23.1 H Glucose 117 H Calcium 9.3 Medical Necessity - Tobacco Use Smoking Status: Current every day smoker Tobacco Use: Cigarettes Assessment/Plan All Active Problems (Last Updated 08/20/18 @ 16:21 by Evelyn Velasquez MD) Respiratory failure with hypoxia and hypercapnia (Acute) Bronchospasm (Resolved) #1 acute diastolic congestive heart failure-I will reevaluate her IV Lasix dosage as well as her other medications due to her hypotension today #2 chronic hypoxic and hypercapnic respiratory failure-pulse ox will be monitored, patient tolerating BiPAP at this time, pulmonary medicine is participating in her care, again she will need set up with a stronger oxygen concentrator and BiPAP at home when she is discharged #3 morbid obesity #4 obstructive sleep apnea-patient is currently wearing BiPAP periodically in the hospital, she will need set up with this when she is discharged home #5 hypertension #6 hypothyroidism #7 chronic kidney disease stage III-etiology unknown #8 chronic obstructive pulmonary disease #9 moderate pulmonary hypertension #10 noncompliance with medical regimen #11 hypokalemia-patient was given potassium today #12 chronic anticoagulation-secondary to past history of VTE Code Visit Inpatient E&M: 51874 Subs Hosp L2
[2018-08-26] MEDS: HYDROcodone Bitartrate/Apap 5/325 Tablet PO (18:41)
[2018-08-26] MEDS: MELATONIN 3 MG TABLET PO (22:15)
[2018-08-26] MEDS: Atorvastatin Calcium 40 MG Tablet PO (22:16)
[2018-08-27] VITALS (31 sets, daily range): BP systolic 88–118; BP diastolic 60–90; PULSE 75–96; RESP 14–20; TEMP 36.1–37.1; O2SAT 85–94
[2018-08-27] MEDS: Menthol/Lanolin/Calamine/Znox 113 GM Tube 1 APPLIC TOPICAL ×3 (06:15→21:49)
[2018-08-27] MEDS: Levothyroxine 25 MCG TABLET PO (06:16)
[2018-08-27] MEDS: hydrOXYzine 10 MG Tablet PO ×3 (06:16→21:49)
[2018-08-27] MEDS: Nystatin Powder 15gm Bottle 1 APPLIC TOPICAL ×3 (06:16→21:49)
[2018-08-27 06:23] LABS: BUN 33 mg/dL (7-18); BUN/Creat Ratio 25.8 RATIO (10-20); Carbon Dioxide > 45.0 mmol/L (21.0-32.0); Chloride 85 mmol/L (98-107); Creatinine, Serum 1.28 mg/dL (0.55-1.02); EST Glomerular Filtration Rate 46 mL/min (>60); Est Glom Filt Rate - Afr Amer 56 mL/min (>60); Estimated Creatinine Clearance 46.49 ml/min; Glucose 102 mg/dL (74-106); Potassium 3.4 mmol/L (3.5-5.1); Sodium Level 139 mmol/L (136-145)
[2018-08-27] MEDS: Ipratropium/Albuterol Sulfate 3 ML AMPUL.NEB INHALATION ×4 (06:44→19:25)
--- NOTE | 2018-08-27 07:16 | PCM.PN.PUL ---
Patient Problems: Active and Suspected Problems (Last Updated 08/20/18 @ 16:21 by Evelyn Velasquez MD) Respiratory failure with hypoxia and hypercapnia (Acute) Subjective: The patient was seen and examined at the bedside this morning. Events from the last 24 hours have been reviewed. The patient is currently afebrile, hemodynamically stable and maintaining appropriate oxygen saturations on 7 L/min via nasal cannula. The patient is currently documented to be overall net -4.2 L for the admission. Overnight, the patient reportedly took her BiPAP off from 0330 to 0630 hrs. The patient was reportedly quite weak when working with physical therapy. She is likely to benefit from further rehabilitation. However, the patient seems insistent that she is going to be discharged home. Objective: The patient's most recent lab work, culture data and imaging studies have all been personally reviewed. Surface echocardiogram from June 2017 revealed moderate concentric LVH with stage I diastolic dysfunction and an ejection fraction of 75%. The RV was severely dilated with severe global RV systolic dysfunction and a right ventricular systolic pressure estimated to be 56 mmHg. - Physical Exam General: Alert, Oriented x3, Cooperative, No apparent distress, - - Morbidly obese. Sitting upright in bed. HEENT: Atraumatic, PERRLA, Normocephalic Oral: No Gingival or Mucosal Lesions/ Ulcerations Neck: Supple, No Nodes, Trachea Midline Lungs: No rhonchi, No wheeze, Diminished, Rales Cardiovascular: Regular rate, Regular Rhythm, Normal S1, Normal S2 Abdomen: Bowel Sounds Present, Soft, Non Tender, Obese Extremities: No clubbing, No cyanosis, No edema Skin: No rashes Musculoskeletal: No Tenderness to Palpation of Joints or Extremities Lymphatic: No Cervical, Supraclavicular, or Inguinal Adenopathy Neurological: Neuro grossly intact Psych/Mental Status: Normal Affect, Appropriate Vital Signs Temp Pulse Resp BP Pulse Ox 98.3 F 83 16 112/73 88 08/27/18 06:00 08/27/18 06:45 08/27/18 06:45 08/27/18 06:00 08/27/18 06:44 Oxygen Flow Rate (L/min) 7 Oxygen Delivery Method Nasal Cannula Weight: 301 lb 9.478 oz Body Mass Index (BMI) 53.8 Intake and Output for Last 24 Hours 08/25/18 08/26/18 08/27/18 23:59 23:59 23:59 Intake Total 1370 / 1370 1100 / 1100 480 / 480 Output Total 4200 / 4200 1000 / 1000 475 / 475 Balance -2830 / -2830 100 / 100 5 / 5 Laboratory Tests Past 24 Hrs 08/27/18 05:10 Sodium 139 Potassium 3.4 L Chloride 85 L Carbon Dioxide > 45.0 H* Anion Gap TNP BUN 33 H Creatinine 1.28 H Estim Creat Clear Calc 46.49 Est GFR (MDRD) Af Amer 56 L Est GFR (MDRD) Non-Af 46 L BUN/Creatinine Ratio 25.8 H Glucose 102 Calcium 9.0 Clinical Impression(s) from Imaging Studies Chest X-Ray 08/20/18 14:19 IMPRESSION: Vascular congestion and CHF. Bibasilar atelectasis. Electronically Signed: Alvin Schmitt, at 15:19 EDT , Service support , Chest X-Ray 08/22/18 05:55 IMPRESSION: Residual vascular congestion although there has been improvement as compared to prior study. Electronically Signed: Alvin Schmitt, at 9:28 EDT , Service support , Medical Necessity - Tobacco Use Smoking Status: Current every day smoker Tobacco Use: Cigarettes Assessment/Plan All Active Problems (Last Updated 08/20/18 @ 16:21 by Evelyn Velasquze MD) Respiratory failure with hypoxia and hypercapnia (Acute) Bronchospasm (Resolved) RECOMMENDATIONS: 1. Continue diuretic therapy. 2. Electrolyte repletion as indicated. 3. Encourage BiPAP utilization with naps and nightly. 4. Wean supplemental oxygen to maintain saturations at or above 90%. 5. The patient will likely require fci placement for additional rehabilitation. IMPRESSIONS: 1. Acute on chronic diastolic congestive heart failure/acute on chronic cor pulmonale The patient has been likely chronically hypoxic for quite some time given her hemoglobin of 15 and reported cyanosis of the feet. In addition, the patient also appears to be a chronic CO2 retainer. Would recommend continuing to wean supplemental oxygen to maintain saturations 88 to 92%. Recommend continuing empiric BiPAP therapy as tolerated by the patient. Continue ongoing diuresis for further volume optimization. 2. Acute on chronic combined respiratory failure Likely secondary to #1. Also contributing would be patient's underlying diagnosis of COPD and uncontrolled obstructive sleep apnea. Patient is not compliant with MANUEL therapy and this is likely leading to recurrent hypoxemia and elevation of pulmonary artery pressures. Patient has stated that she does not want to be intubated. Patient will likely require a outpatient titration polysomnogram for optimization of BiPAP settings. We will continue to monitor with transcutaneous CO2. Continue attempts at volume optimization with diuretic therapy. 3. Chronic kidney disease stage III Unclear etiology at this time. Although, clinical suspicion for underlying medical renal disease. The patient may also have an element of venous congestion given high pulmonary artery pressures. Urine output appears to be stable at this time. Would continue to diurese as tolerated. 4. Morbid obesity/hypertension/hypothyroidism/history of noncompliance/active tobacco abuse/hypomagnesemia/hypokalemia Complicates care, management, recovery and prognosis. Okay to continue with baseline medications. Electrolyte replacement as indicated. This note was generated with Frontleaf dictation software. It may contain incorrect words, spelling, and punctuation that were not noted in checking the note before signing. Code Visit Inpatient E&M: 22028 Subs Hosp L2
[2018-08-27] MEDS: Folic Acid 1 MG Tablet PO (09:52)
[2018-08-27] MEDS: APIXABAN 5 MG TABLET PO ×2 (09:53→21:49)
[2018-08-27] MEDS: busPIRone 15 MG TABLET 7.5 MG PO ×2 (09:53→21:48)
[2018-08-27] MEDS: Venlafaxine XR 150 MG Capsule PO (09:53)
[2018-08-27] MEDS: Furosemide 20 MG/2 ML VIAL IV (09:55)
[2018-08-27] MEDS: Gabapentin 300 MG Capsule PO ×4 (09:55→21:48)
[2018-08-27] MEDS: Metoprolol Tartrate 25 MG Tablet PO ×2 (09:55→21:49)
[2018-08-27] MEDS: Tolterodine Tartrate 2 MG CAP.SA PO (09:56)
[2018-08-27] MEDS: Allopurinol 100 MG Tablet PO (09:56)
[2018-08-27] MEDS: Acetaminophen 325 MG Tablet 650 MG PO (10:36)
[2018-08-27] MEDS: Losartan Potassium 25 MG Tablet PO (10:37)
[2018-08-27] MEDS: Aspirin 81 MG TAB.CHEW PO (10:37)
--- NOTE | 2018-08-27 12:33 | PN_ITS ---
Patient Problems: Active and Suspected Problems (Last Updated 08/20/18 @ 16:21 by Evelyn Velasquez MD) Respiratory failure with hypoxia and hypercapnia (Acute) Subjective: The patient is a 53-year-old female with a past medical history of diastolic congestive heart failure with preserved ejection fraction of 75%, chronic renal failure stage III, hypertension, pulmonary emboli, chronic anticoagulation with Eliquis, COPD, moderate concentric left ventricular hypertrophy, severe pulmonary hypertension, obstructive sleep apnea (not compliant with BiPAP or CPAP), severe dilation of the right ventricle and biatrial enlargement, chronic combined hypoxic and hypercapnic respiratory failure on 5 to 6 L of oxygen chronically, super obesity and ongoing tobacco dependence presented to the emergency department at [facility] [place] on 08/20/2018 complaining of worsening shortness of breath. She was diagnosed with acute on chronic hypoxic and hypercapnic respiratory failure and required BiPAP. Lab and x-ray were consistent with acute on chronic diastolic congestive heart failure. She was admitted to a monitored bed on PCU and diuresis was initiated. Afebrile since admission Blood pressure this afternoon is low at 88/63 but she is asymptomatic. Heart rate is within normal limits. She is 88 to 91% saturated on and 9 L nasal cannula. All lab was personally reviewed. Serum bicarb is greater than 45 and the potassium was low at 3.4 today. BUN is 33 and creatinine is 1.28. I reviewed the physical therapy notes and patient is not safe to go home and therapy recommends long-term. She lives alone. She denies chest pain, palpitations, nausea, vomiting, abdominal pain, loose bowels. Denies shortness of breath at the present time. She is very adamant that she wants to go home and not to a long-term facility. She has been to a long-term facility in [place] twice in the past. Her longest stay there was 2 months and it was following the hospital stay. She complains that she has good strength in her arms but her legs are always weak and painful when she stands on them. Echocardiogram in June 2017 showed moderate concentric left ventricular hypertrophy, EF of 75%, stage I diastolic dysfunction, severely dilated right ventricle biatrial enlargement, TR 1+, right ventricular systolic pressure estimated to be 56 but suspect this is underestimated Cardiac catheterization in June 2017 showed nonobstructive coronary arteries - Physical Exam General: Alert, Oriented x3, Well developed, Well nourished HEENT: Atraumatic, PERRLA, EOMI Oral: Dry Mucosa Lungs: No rhonchi, No wheeze, No rales, Diminished Cardiovascular: Regular rate, Regular Rhythm, Normal S1, Normal S2, No murmurs, No Gallop Abdomen: Bowel Sounds Present, Soft, Non Tender, Non-Distended, Obese Extremities: Clubbing, Cyanosis - Of both distal lower extremities/feet, - - The skin over the distal lower extremities is now dry and wrinkled Skin: No rashes Neurological: Cranial nerves II-XII grossly intact, Neuro grossly intact Psych/Mental Status: Depressed - Tearful, adamant about going home Vital Signs Temp Pulse Resp BP Pulse Ox 98.7 F 87 20 H 118/77 90 08/27/18 10:00 08/27/18 10:10 08/27/18 10:10 08/27/18 10:00 08/27/18 10:00 Oxygen Flow Rate (L/min) 9 Oxygen Delivery Method Nasal Cannula Weight: 301 lb 9.478 oz Body Mass Index (BMI) 53.8 Intake and Output for Last 24 Hours 08/25/18 08/26/18 08/27/18 23:59 23:59 23:59 Intake Total 1370 / 1370 1100 / 1100 480 / 480 Output Total 4200 / 4200 1000 / 1000 475 / 475 Balance -2830 / -2830 100 / 100 5 / 5 Laboratory Tests Past 24 Hrs 08/27/18 05:10 Sodium 139 Potassium 3.4 L Chloride 85 L Carbon Dioxide > 45.0 H* Anion Gap TNP BUN 33 H Creatinine 1.28 H Estim Creat Clear Calc 46.49 Est GFR (MDRD) Af Amer 56 L Est GFR (MDRD) Non-Af 46 L BUN/Creatinine Ratio 25.8 H Glucose 102 Calcium 9.0 Medical Necessity - Tobacco Use Smoking Status: Current every day smoker Tobacco Use: Cigarettes Assessment/Plan All Active Problems (Last Updated 08/20/18 @ 16:21 by Evelyn Velasquez MD) Respiratory failure with hypoxia and hypercapnia (Acute) Bronchospasm (Resolved) Impressions 1. Acute on chronic combined respiratory failure secondary to acute on chronic diastolic congestive heart failure-improving with diuresis 2. Acute on chronic diastolic congestive heart failure 3. Severe pulmonary hypertension 4. Obstructive sleep apnea-does not have BiPAP or CPAP at home but states she is able to tolerate the BiPAP she is wearing in the hospital and would be willing to do this as an outpatient. 5. Chronic renal failure stage III 6. Hypertension 7. History of pulmonary emboli 8. Chronic anticoagulation with Eliquis 9. COPD 10. Moderate left ventricular hypertrophy 11. Severe dilatation of the right ventricle 12. Tobacco dependence 13. Super obesity 14. Hypokalemia 15. Metabolic alkalosis 16. Hypomagnesemia I spent 40 minutes with the patient explaining why she can not go home.....it is not safe at this time. We also discussed smoking cessation and things that she could do to help prevent future hospital admissions that would include stop smoking, wear BIPAP every night and anytime she is napping, lose weight. She initially told me she did not care and she did not think she could stop smoking......I told her we would help her. She later state she would try. She does not want to and is not ready for hospice so I informed her she has to start trying. Transition to oral Bumex Check a portable chest x-ray tonight Recheck lab in the a.m. Possible repeat ABG in the a.m....oxygen requirement has increased to 9 LPM to keep the O2 sat > 88 and the serum bicarb has increased since admission and so has the pCO2. Add a calorie restriction to her current diet....1600 calories daily Continue fluid restriction Code Visit Inpatient E&M: 68379 Subs Hosp L3
--- NOTE | 2018-08-27 13:24 | CASEMGMT ---
Patient has now agreed to go to [facility] in [place]. SW spoke with patient and provided emotional support as she was crying. She said she just wanted to go home. SW explained we just need to make sure she is safe. She said she understands. FLOR told her SW will work on the referral. FLOR called [facility] and left a message requesting a return call. FLOR also faxed referral to [facility]. Stephanie BOUDREAUX MSW
--- NOTE | 2018-08-27 14:25 | CHAPLAIN ---
Type of Pastoral Visit _x__ Initial Visit ___ Follow-up Visit ___ On-call Visit ___ General Patient Visit ___ Spiritual Assessment ___ Family Conference ___ Bereavement ___ Rapid Response ___ Code Blue ___ Other (describe below) Pastoral Care Referral From _x__ Patient ___ Family _x__ Nurse ___ Physician ___ [employer] ___ Director Of Software Development ___ Other (describe below) Sacrament/Intervention _x__ Active listening ___ Anointing ___ Jainism ___ Bereavement ___ Communion _x__ Kimberly exploration ___ _x__ Life review _x__ Prayer ___ Reconciliation ___ Sacrament of Sick _x__ Supportive presence ___ Wedding ___ Other (describe below) Pastoral Comments patient states that this is not a good day because I don't get to go home
--- NOTE | 2018-08-27 14:42 | CASEMGMT ---
FLOR spoke with Nupur at [facility]. She will look at referral and get back with FLOR. Plan: [facility] pending their acceptance and FLOR obtaining a Medicaid level of care. Stephanie BOUDREAUX MSW
[2018-08-27] MEDS: HYDROcodone Bitartrate/Apap 5/325 Tablet PO ×2 (14:57→21:48)
--- NOTE | 2018-08-27 15:24 | CASEMGMT ---
FLOR received call from Nupur at [facility] [place] and they can accept patient. FLOR will work on obtaining a level of care from [facility]. Plan: [facility] [place] pending FLOR obtaining Medicaid level of care. Stephanie BOUDREAUX MSW
--- NOTE | 2018-08-27 18:00 | RAD_ITS ---
STUDY: X-RAY CHEST REASON FOR EXAM: Female, 53 years old. Shortness of breath TECHNIQUE: Frontal view COMPARISON: August 22, 2018 FINDINGS: The lungs are expanded. Right basilar atelectasis/infiltrate. Cardiomegaly. Normal mediastinum. Persistent left hilar prominence possibly related to a prominent vessel. Underlying space occupying lesion cannot be excluded.. Prominence of the pulmonary arteries. Normal visualized aortic arch and descending thoracic aorta. Degenerative changes of the visualized thoracic spine. Normal visualized ribs, clavicles, and shoulders. Gaseous distention of bowel loops are noted in the upper abdomen. RAD/Chest 1 View (Portable) IMPRESSION: Right basilar atelectasis/infiltrate. Cardiomegaly and central pulmonary vascular prominence. Persistent left hilar prominence may be due to prominent central vessel. Underlying space-occupying lesion cannot be excluded. Gaseous distended bowel loops in the visualized upper abdomen. Electronically Signed: Yogesh Mosqueda DO at 19:26 EDT Tel [phone], Service support ,
[2018-08-27 19:13] LABS: Ferritin 90 ng/mL (8-252); Iron 104 ug/dL (50-170); Iron Binding Capacity,Total 321 ug/dL (250-450); PERCENT IRON SATURATION 32.4 % (15.0-55.0)
[2018-08-27] MEDS: Atorvastatin Calcium 40 MG Tablet PO (21:48)
[2018-08-27] MEDS: MELATONIN 3 MG TABLET PO (21:48)
[2018-08-28] VITALS (30 sets, daily range): BP systolic 86–108; BP diastolic 58–79; PULSE 74–92; RESP 13–20; TEMP 36.4–37.3; O2SAT 88–94
--- NOTE | 2018-08-28 00:45 | NURSING ---
PER DR ZURITA, OK TO GIVE BUMEX IF PT'S SYSTOLIC IS >95. WENT TO GIVE BUMEX AND PT'S BP IS 94/67. WILL HOLD FOR TONIGHT.
[2018-08-28] MEDS: Nystatin Powder 15gm Bottle 1 APPLIC TOPICAL ×3 (05:32→21:22)
[2018-08-28] MEDS: Menthol/Lanolin/Calamine/Znox 113 GM Tube 1 APPLIC TOPICAL ×3 (05:32→21:21)
[2018-08-28] MEDS: Levothyroxine 25 MCG TABLET PO (05:32)
[2018-08-28] MEDS: hydrOXYzine 10 MG Tablet PO ×3 (05:32→21:21)
[2018-08-28] MEDS: Ipratropium/Albuterol Sulfate 3 ML AMPUL.NEB INHALATION ×3 (07:16→18:50)
--- NOTE | 2018-08-28 07:29 | PCM.PN.PUL ---
Patient Problems: Active and Suspected Problems (Last Updated 08/20/18 @ 16:21 by Evelyn Velasquez MD) Respiratory failure with hypoxia and hypercapnia (Acute) Subjective: The patient was seen and examined at the bedside this morning. Events from the last 24 hours have been reviewed. The patient is currently afebrile, hemodynamically stable and maintaining appropriate oxygen saturations on 8-10L/min via nasal cannula. The patient did tolerate BiPAP last evening. She does appear quite anxious again this morning to be discharged from the hospital. The patient's plain film chest x-ray from this morning did reveal prominent central vasculature with left hilar fullness. The patient did have a CTA chest completed in 2018, which did reveal a spiculated left apical lung nodule. Objective: The patient's most recent lab work, culture data and imaging studies have all been personally reviewed. Surface echocardiogram from June 2017 revealed moderate concentric LVH with stage I diastolic dysfunction and an ejection fraction of 75%. The RV was severely dilated with severe global RV systolic dysfunction and a right ventricular systolic pressure estimated to be 56 mmHg. - Physical Exam General: Alert, Cooperative, No apparent distress, - - Sitting in bed eating breakfast. HEENT: Atraumatic, PERRLA, Normocephalic Oral: No Gingival or Mucosal Lesions/ Ulcerations Neck: Supple, No Nodes, Trachea Midline Lungs: No rhonchi, No wheeze, No rales, Diminished Cardiovascular: Regular rate, Regular Rhythm, Normal S1, Normal S2, No murmurs Abdomen: Bowel Sounds Present, Soft, Non Tender, Obese Extremities: No edema, Clubbing Skin: - - No significant change from previous Musculoskeletal: No Muscle Wasting Lymphatic: No Cervical, Supraclavicular, or Inguinal Adenopathy Neurological: Cranial nerves II-XII grossly intact, Neuro grossly intact Psych/Mental Status: Normal Affect, Appropriate Vital Signs Temp Pulse Resp BP Pulse Ox 99.1 F 74 15 104/77 90 08/28/18 05:33 08/28/18 07:09 08/28/18 05:33 08/28/18 05:33 08/28/18 05:33 Oxygen Flow Rate (L/min) 9 Oxygen Delivery Method Bi-pap Weight: 297 lb 2.93 oz Body Mass Index (BMI) 53.8 Intake and Output for Last 24 Hours 08/26/18 08/27/18 08/28/18 23:59 23:59 23:59 Intake Total 1100 / 1100 960 / 1440 720 / 720 Output Total 1000 / 1000 850 / 1050 300 / 300 Balance 100 / 100 110 / 390 420 / 420 Laboratory Tests Past 24 Hrs 08/27/18 08/28/18 08/28/18 05:10 06:38 06:38 Sodium Pending Potassium Pending Chloride Pending Carbon Dioxide Pending Anion Gap Pending BUN Pending Creatinine Pending Est GFR (MDRD) Af Amer Pending Est GFR (MDRD) Non-Af Pending BUN/Creatinine Ratio Pending Glucose Pending Calcium Pending Phosphorus Magnesium Pending Iron 104 TIBC 321 Iron Saturation 32.4 Ferritin 90 Vitamin B12 Pending RBC Folate Hemolysate RBC Folate Hematocrit 08/28/18 08/28/18 06:38 06:38 Sodium Potassium Chloride Carbon Dioxide Anion Gap BUN Creatinine Est GFR (MDRD) Af Amer Est GFR (MDRD) Non-Af BUN/Creatinine Ratio Glucose Calcium Phosphorus Pending Magnesium Iron TIBC Iron Saturation Ferritin Vitamin B12 RBC Folate Hemolysate Pending RBC Folate Pending Hematocrit Pending Clinical Impression(s) from Imaging Studies Chest X-Ray 08/20/18 14:19 IMPRESSION: Vascular congestion and CHF. Bibasilar atelectasis. Electronically Signed: Alvin Schmitt, at 15:19 EDT , Service support , Chest X-Ray 08/22/18 05:55 IMPRESSION: Residual vascular congestion although there has been improvement as compared to prior study. Electronically Signed: Alvin Schmitt, at 9:28 EDT , Service support , Chest X-Ray 08/27/18 18:00 IMPRESSION: Right basilar atelectasis/infiltrate. Cardiomegaly and central pulmonary vascular prominence. Persistent left hilar prominence may be due to prominent central vessel. Underlying space-occupying lesion cannot be excluded. Gaseous distended bowel loops in the visualized upper abdomen. Electronically Signed: Yogesh Mosqueda DO at 19:26 EDT Tel [phone], Service support , Medical Necessity - Tobacco Use Smoking Status: Current every day smoker Tobacco Use: Cigarettes Assessment/Plan All Active Problems (Last Updated 08/20/18 @ 16:21 by Evelyn Velasquez MD) Respiratory failure with hypoxia and hypercapnia (Acute) Bronchospasm (Resolved) RECOMMENDATIONS: 1. Continue diuretic therapy. Consider administering Diamox with loop diuretic therapy. 2. Consider obtaining CT chest. 3. Encourage BiPAP utilization with naps and nightly. 4. Wean supplemental oxygen to maintain saturations 88-92%. 5. The patient will likely require jail placement for additional rehabilitation. 6. Outpatient pulmonary follow-up is advisable. IMPRESSIONS: 1. Acute on chronic diastolic congestive heart failure/acute on chronic cor pulmonale The patient has been likely chronically hypoxic for quite some time given her hemoglobin of 15 and reported cyanosis of the feet. In addition, the patient also appears to be a chronic CO2 retainer. Would recommend continuing to wean supplemental oxygen to maintain saturations 88 to 92%. Recommend continuing empiric BiPAP therapy as tolerated by the patient. Continue ongoing diuresis for further volume optimization. 2. Acute on chronic combined respiratory failure Likely secondary to #1. Also contributing would be patient's underlying diagnosis of COPD and uncontrolled obstructive sleep apnea. Patient is not compliant with MANUEL therapy and this is likely leading to recurrent hypoxemia and elevation of pulmonary artery pressures. Patient has stated that she does not want to be intubated. Patient will likely require a outpatient titration polysomnogram for optimization of BiPAP settings. Continue attempts at volume optimization with diuretic therapy. 3. Chronic kidney disease stage III Unclear etiology at this time. Although, clinical suspicion for underlying medical renal disease. The patient may also have an element of venous congestion given high pulmonary artery pressures. Urine output appears to be stable at this time. Would continue to diurese as tolerated. 4. Morbid obesity/hypertension/hypothyroidism/history of noncompliance/active tobacco abuse/hypomagnesemia/hypokalemia Complicates care, management, recovery and prognosis. Okay to continue with baseline medications. This note was generated with Application [employer] software. It may contain incorrect words, spelling, and punctuation that were not noted in checking the note before signing. Code Visit Inpatient E&M: 61930 Subs Hosp L3
--- NOTE | 2018-08-28 07:38 | CPS ---
Transcutaneous Monitor calibrated at 0716, currently off of patient at this time. Prem [facility]
[2018-08-28 07:55] LABS: BUN 33 mg/dL (7-18); BUN/Creat Ratio 29.5 RATIO (10-20); Calcium,Total 8.9 mg/dL (8.5-10.1); Carbon Dioxide > 45.0 mmol/L (21.0-32.0); Chloride 85 mmol/L (98-107); Creatinine, Serum 1.12 mg/dL (0.55-1.02); EST Glomerular Filtration Rate 54 mL/min (>60); Est Glom Filt Rate - Afr Amer 65 mL/min (>60); Estimated Creatinine Clearance 53.13 ml/min; Glucose 85 mg/dL (74-106); Magnesium 1.7 mg/dL (1.6-2.6); Potassium 3.5 mmol/L (3.5-5.1); Sodium Level 136 mmol/L (136-145)
[2018-08-28 08:41] LABS: Allen Test POS; Blood Gas Specimen Type ART; O2 Delivery Device Nasal Can; SITE L RADIAL
[2018-08-28 08:42] LABS: Time Given 826; pH 7.43 (7.35-7.45)
[2018-08-28 08:43] LABS: Base Excess 28 mmol/L (-2 to +2); Bicarbonate 52.9 mmol/L (22-26); PO2 57 mmHG (75-100); SO2 87 % (95-99); Total Carbon Dioxide > 50 mmol/L; pCO2 80.1 mmHg (35-45)
--- NOTE | 2018-08-28 08:53 | CPS ---
ABG results were given to Dr Nguyen.
[2018-08-28 09:07] LABS: Vitamin B12 654 pg/mL (211-911)
[2018-08-28 09:16] LABS: Phosphorus 3.1 mg/dL (2.5-4.9)
[2018-08-28] MEDS: Folic Acid 1 MG Tablet PO (09:46)
[2018-08-28] MEDS: Tolterodine Tartrate 2 MG CAP.SA PO (09:46)
[2018-08-28] MEDS: Venlafaxine XR 150 MG Capsule PO (09:46)
[2018-08-28] MEDS: busPIRone 15 MG TABLET 7.5 MG PO ×2 (09:46→21:21)
[2018-08-28] MEDS: Losartan Potassium 25 MG Tablet PO (09:46)
[2018-08-28] MEDS: Allopurinol 100 MG Tablet PO (09:46)
[2018-08-28] MEDS: Bumetanide 2 MG Tablet PO (09:46)
[2018-08-28] MEDS: Aspirin 81 MG TAB.CHEW PO (09:46)
[2018-08-28] MEDS: Gabapentin 300 MG Capsule PO ×4 (09:46→21:22)
[2018-08-28] MEDS: APIXABAN 5 MG TABLET PO ×2 (09:47→19:56)
[2018-08-28] MEDS: Metoprolol Tartrate 25 MG Tablet PO (09:47)
[2018-08-28] MEDS: AcetaZOLAMIDE 500 MG/10 ML Vial IV (09:49)
[2018-08-28] MEDS: Acetaminophen 325 MG Tablet 650 MG PO ×3 (09:50→21:25)
--- NOTE | 2018-08-28 14:43 | CT_ITS ---
STUDY: CT CHEST WITH CONTRAST REASON FOR EXAM: Female, 53 years old. Possible mass. RADIATION DOSAGE (If Supplied By Facility): CTDIvol = ( 35.61 ) mGy, DLP = ( 1027.35 ) mGycm TECHNIQUE: Transaxial imaging was performed following intravenous administration of 100 IV Isovue 300. Multiplanar coronal and sagittal images were reformatted. Individualized dose optimization techniques were used for this CT. COMPARISON: Comparison is made with prior CT of the chest dated June 14, [address] scan of the chest dated September 11, 2012. FINDINGS: There is a 3.5 cm x 2.6 cm hypodense rounded mass in the right lower lobe posteriorly. This abuts the pleural surface. This is unchanged. There is evidence of a airspace disease involving both lungs worse on the left side. Normal heart and pericardium. There are multiple small lymph nodes within the mediastinum, which are normal in size and morphology most compatible with reactive lymph hyperplasia. Normal hilar regions. There is prominence of the pulmonary hilar arteries without peripheral pulmonary vascular congestion, suggesting pulmonary hypertension. There is ectasia of the inferior aspect of the left pulmonary artery extending into the posterior medial segment of the left lower lobe suggestive of a vascular malformation. Peripheral calcification is seen in the inferior aspect of the left pulmonary artery. There is atherosclerotic calcification of the aortic arch with tortuosity and elongation of the aortic arch and descending thoracic aorta. There are multi-level degenerative changes of the thoracic spine. Stable 1.5 cm nodule in the left adrenal gland suggestive of adenoma. CT/Chest WITH Contrast IMPRESSION: Stable hypodense mass in the right lower lobe. Bibasilar airspace disease. Electronically Signed: Alvin Schmitt, at 15:49 EDT , Service support ,
--- NOTE | 2018-08-28 14:51 | CASEMGMT ---
FLOR spoke with Nupur at [facility]. She said their O2 concentrators go up to 10 L. FLOR told her patient is on 8L right now. FLOR told her patient will probably be discharged tomorrow. Stephanie MCLAUGHLIN
--- NOTE | 2018-08-28 17:59 | PCM.PROGNOTE ---
Patient Problems: Active and Suspected Problems (Last Updated 08/20/18 @ 16:21 by Evelyn Velasquez MD) Respiratory failure with hypoxia and hypercapnia (Acute) Subjective: All events of the past 24 hours of been reviewed. She remains afebrile. She is down to an 8 L nasal cannula and her O2 sat is 92%. Blood pressure this afternoon is low at 86/60 however the MAP is 68 and the patient denies any dizziness or lightheadedness. Intake and output are inaccurate due to urinary incontinence. Chest x-ray on 08/27/2018 showed no pleural effusions but did show increased pulmonary vascular congestion which I suspect is due to pulmonary hypertension rather than pulmonary edema. There was mention of a possible left hilar mass so a CT scan of the chest was ordered and showed a stable hypodense mass in the right lower lobe and bibasilar airspace disease. There were no pleural effusions. There were prominent pulmonary hilar arteries without peripheral pulmonary vascular congestion. There was ectasia of the inferior aspect of the left pulmonary artery extending into the posterior medial segment of the left lower lobe suggestive of a vascular malformation. She has a stable 1.5 cm nodule in the left adrenal gland. An ABG done on a 10 L nasal cannula showed a pH of 7.43, PCO2 of 80 and a PO2 of 57 with a serum bicarb of 53. Potassium was within normal limits at 3.5 following supplementation and the BUN was stable at 33 with a creatinine of 1.12 which is down from 1.28 on 08/27/2018. She denies shortness of breath at rest. She denies chest pain. She denies lightheadedness. She tells me that she has been unable to walk since injuring her back......no imaging of the LS spine has been done at this hospital. - Physical Exam General: Alert, Oriented x3, Cooperative, No apparent distress Oral: Moist Mucosa Neck: Supple, Trachea Midline Lungs: Diminished Cardiovascular: Regular rate, Regular Rhythm, Normal S1, Normal S2, No murmurs, No Gallop Abdomen: Bowel Sounds Present, Soft, Non Tender, Non-Distended, Obese Extremities: No edema - the skin of the LE's is wrinkled AND dry. The feet are purple red in color, Clubbing Skin: No rashes Neurological: Cranial nerves II-XII grossly intact, Neuro grossly intact Psych/Mental Status: Appropriate Vital Signs Temp Pulse Resp BP Pulse Ox 97.8 F 82 18 86/60 L 92 08/28/18 17:00 08/28/18 17:00 08/28/18 17:00 08/28/18 17:00 08/28/18 17:00 Oxygen Flow Rate (L/min) 8 Oxygen Delivery Method Nasal Cannula Weight: 297 lb 2.93 oz Body Mass Index (BMI) 53.8 Intake and Output for Last 24 Hours 08/26/18 08/27/18 08/28/18 23:59 23:59 23:59 Intake Total 1100 / 1100 960 / 1440 960 / 960 Output Total 1000 / 1000 850 / 1050 900 / 900 Balance 100 / 100 110 / 390 60 / 60 Laboratory Tests Past 24 Hrs 08/27/18 08/28/18 08/28/18 05:10 06:38 06:38 Specimen Type Sample Site pH Bicarbonate Actual POC Total CO2 Base Excess O2 Saturation ABG pCO2 ABG pO2 Casimiro Test O2 Delivery Device Liter Flow Blood Gas Notified Whom Blood Gas Notified Time Sodium 136 Potassium 3.5 Chloride 85 L Carbon Dioxide > 45.0 H* Anion Gap TNP BUN 33 H Creatinine 1.12 H Estim Creat Clear Calc 53.13 Est GFR (MDRD) Af Amer 65 Est GFR (MDRD) Non-Af 54 L BUN/Creatinine Ratio 29.5 H Glucose 85 Calcium 8.9 Phosphorus Magnesium 1.7 Iron 104 TIBC 321 Iron Saturation 32.4 Ferritin 90 Vitamin B12 654 RBC Folate Hemolysate RBC Folate Hematocrit 08/28/18 08/28/18 08/28/18 06:38 06:38 08:26 Specimen Type ART Sample Site L RADIAL pH 7.43 Bicarbonate Actual 52.9 H POC Total CO2 > 50 Base Excess 28 H O2 Saturation 87 L ABG pCO2 80.1 H* ABG pO2 57 L Casimiro Test POS O2 Delivery Device Nasal Can Liter Flow 10.0 Blood Gas Notified Whom [facility] Blood Gas Notified Time 826 Sodium Potassium Chloride Carbon Dioxide Anion Gap BUN Creatinine Estim Creat Clear Calc Est GFR (MDRD) Af Amer Est GFR (MDRD) Non-Af BUN/Creatinine Ratio Glucose Calcium Phosphorus 3.1 Magnesium Iron TIBC Iron Saturation Ferritin Vitamin B12 RBC Folate Hemolysate Pending RBC Folate Pending Hematocrit Pending Medical Necessity - Tobacco Use Smoking Status: Current every day smoker Tobacco Use: Cigarettes Assessment/Plan All Active Problems (Last Updated 08/20/18 @ 16:21 by Evelyn Velasquez MD) Respiratory failure with hypoxia and hypercapnia (Acute) Bronchospasm (Resolved) Impressions 1. Acute on chronic combined respiratory failure secondary to acute on chronic diastolic congestive heart failure-improving with diuresis 2. Acute on chronic diastolic congestive heart failure 3. Severe pulmonary hypertension 4. Obstructive sleep apnea-does not have BiPAP or CPAP at home but states she is able to tolerate the BiPAP she is wearing in the hospital and would be willing to do this as an outpatient. She wore the BIPAP the entire night last night 5. Chronic renal failure stage III 6. Hypertension 7. History of pulmonary emboli 8. Chronic anticoagulation with Eliquis 9. COPD 10. Moderate left ventricular hypertrophy 11. Severe dilatation of the right ventricle 12. Tobacco dependence 13. Super obesity 14. Hypokalemia 15. Metabolic alkalosis - I suspect she has a component of IV volume depletion due to aggressive diuresis, in addition to the compensatory metabolic alkalosis from chronic CO2 retention 16. Hypomagnesemia discussed code status with the pt and she wishes to stay a DNR CCA Transitioned to oral Bumex today received 1 dose of diamox today to try and dump bicarb Recheck lab in the a.m. transfer to SNF [place] - she is now willing to do this. We discussed modalities to help her quit smoking - she may benefit from trying an E cigarette. CT scan of the LS spine to evaluate for possible canal and foraminal stenosis as the reason she tells me she is unable to alk. Encouraged her to increase the fluid intake tonight Hold the PM dose of Bumex tonight Code Visit Inpatient E&M: 43327 Subs Hosp L2
[2018-08-28] MEDS: 0.9% NaCl Peripheral Flush Adult/Peds IV (19:56)
[2018-08-28] MEDS: Ondansetron 4 MG/2 ML Vial IV (19:56)
[2018-08-28] MEDS: MELATONIN 3 MG TABLET PO (21:21)
[2018-08-28] MEDS: Atorvastatin Calcium 40 MG Tablet PO (21:21)
[2018-08-29] VITALS (24 sets, daily range): BP systolic 91–111; BP diastolic 58–90; PULSE 79–99; RESP 12–18; TEMP 35.6–36.4; O2SAT 88–93
[2018-08-29] MEDS: HYDROcodone Bitartrate/Apap 5/325 Tablet PO ×2 (03:30→10:47)
[2018-08-29] MEDS: Levothyroxine 25 MCG TABLET PO (06:11)
[2018-08-29] MEDS: hydrOXYzine 10 MG Tablet PO ×2 (06:11→13:33)
[2018-08-29] MEDS: Menthol/Lanolin/Calamine/Znox 113 GM Tube 1 APPLIC TOPICAL ×2 (06:12→13:34)
[2018-08-29] MEDS: Nystatin Powder 15gm Bottle 1 APPLIC TOPICAL ×3 (06:12→13:33)
[2018-08-29 06:36] LABS: BUN 37 mg/dL (7-18); BUN/Creat Ratio 30.6 RATIO (10-20); Carbon Dioxide > 45.0 mmol/L (21.0-32.0); Chloride 85 mmol/L (98-107); Creatinine, Serum 1.21 mg/dL (0.55-1.02); EST Glomerular Filtration Rate 49 mL/min (>60); Est Glom Filt Rate - Afr Amer 59 mL/min (>60); Estimated Creatinine Clearance 49.18 ml/min; Glucose 103 mg/dL (74-106); Sodium Level 138 mmol/L (136-145)
[2018-08-29] MEDS: Ipratropium/Albuterol Sulfate 3 ML AMPUL.NEB INHALATION ×4 (07:15→19:06)
[2018-08-29] MEDS: Aspirin 81 MG TAB.CHEW PO (08:06)
[2018-08-29] MEDS: APIXABAN 5 MG TABLET PO (08:06)
[2018-08-29] MEDS: Magnesium Oxide 400 MG Tablet PO (08:07)
--- NOTE | 2018-08-29 08:12 | NURSING ---
pt sleeping and encouraged to wear bipap until wakes for the morning. am meds given then pt dozes back off. spo2 89% with bipap 60% o2. will monitor.
--- NOTE | 2018-08-29 09:32 | PCM.TXEXTCAR ---
- Diet 08/27/18 18:02 Diet: Cardiac: Carb-Controlled Is pt able to select menu?: Yes Diet Comments: 1600 calories daily - Routine Orders/Code Status O2 Liters per Minute: 8 O2 Frequency: BiPap 12/8 @ 14 when sleeping and prn Code Status: DNRCC-A - Wound(s) BL inner thighs Wound Type: Skin Tear bilateral posterior thighs Wound Type: Pressure Injury abd folds Wound Type: excoriation r bottom of foot near heel Wound Type: Laceration - Therapies Weight Bearing: Full weight bearing Physical Therapy: Eval and Treat Occupational Therapy: Eval and Treat - Problem/Diagnosis (1) Respiratory failure with hypoxia and hypercapnia Status: Acute Current Visit: Yes (2) Chronic diastolic CHF (congestive heart failure) Status: Chronic Current Visit: Yes (3) Acute exacerbation of congestive heart failure Status: Acute Current Visit: Yes (4) Pulmonary embolism Status: Chronic Comment: remote history-on anticoagulants Current Visit: No (5) Secondary pulmonary arterial hypertension Status: Chronic Current Visit: Yes (6) Essential (primary) hypertension Status: Chronic Current Visit: Yes (7) Morbid obesity with BMI of 60.0-69.9, adult Status: Chronic Current Visit: No - Allergies/Procedures Done in Hospital Allergies/Adverse Reactions: Allergies oxycodone [Oxycodone] Allergy (Verified 08/20/18 15:30) Rash oxycodone HCl [From Percodan] Allergy (Verified 03/21/18 11:44) Hives oxycodone terephthalate [From Percodan] Allergy (Verified 03/21/18 11:44) Hives Sulfa (Sulfonamide Antibiotics) Allergy (Verified 03/21/18 11:44) Hives cefuroxime Adverse Reaction (Verified 03/21/18 11:44) Unknown Cephalosporins Adverse Reaction (Verified 03/21/18 11:44) Vomiting meperidine HCl [From Demerol] Adverse Reaction (Verified 03/21/18 11:44) Vomiting NSAIDS (Non-Steroidal Anti-Inflamma Adverse Reaction (Verified 03/21/18 11:44) Unknown - Type of Care/Length of Stay Estimated LOS: Convalescent Care Less Than 30 days Type of Care Needed: Skilled Rehab Potential: Good Prognosis: Good - Additional Orders/Day of Discharge H&P will serve as current which was dated: 08/20/18 Day of Discharge: 08/29/18 - Follow Up Care Primary Care Physician: Brian Thao MD [Primary Care Provider] -
[2018-08-29] MEDS: Tolterodine Tartrate 2 MG CAP.SA PO (10:36)
[2018-08-29] MEDS: Bumetanide 2 MG Tablet PO (10:36)
[2018-08-29] MEDS: busPIRone 15 MG TABLET 7.5 MG PO (10:37)
[2018-08-29] MEDS: Folic Acid 1 MG Tablet PO (10:38)
[2018-08-29] MEDS: Venlafaxine XR 150 MG Capsule PO (10:38)
[2018-08-29] MEDS: Gabapentin 300 MG Capsule PO ×3 (10:38→17:50)
[2018-08-29] MEDS: Allopurinol 100 MG Tablet PO (10:39)
--- NOTE | 2018-08-29 13:18 | CASEMGMT ---
Addendum entered by Stephanie Knox 08/29/18 13:21: FLOR notified Nupur at [facility] regarding level of care. Stephanie MCLAUGHLIN Original Note: FLOR faxed all necessary information to [facility] for Medicaid level of care. Await level of care. Stephanie BOUDREAUX MSW
--- NOTE | 2018-08-29 14:10 | PN_ITS ---
Patient Problems: Active and Suspected Problems (Last Updated 08/20/18 @ 16:21 by Evelyn Velasquez MD) Respiratory failure with hypoxia and hypercapnia (Acute) Acute exacerbation of congestive heart failure (Acute) Subjective: Patient did okay overnight. Patient reports subjective improvement in overall condition. Patient has been requiring 8 L nasal cannula to maintain saturations. Patient states that she tolerates the BiPAP better with a full facemask. Patient reports she is going to acute rehab for 2 weeks. - Physical Exam General: Alert, Oriented x3, Cooperative, No apparent distress, - - Morbidly obese HEENT: Atraumatic, PERRLA, EOMI, Normocephalic, - - No scleral icterus or injection noted Oral: Moist Mucosa, No Gingival or Mucosal Lesions/ Ulcerations, - - Chronic posterior pharynx Neck: Supple, No Nodes, Trachea Midline Lungs: No rhonchi, No wheeze, No rales, Diminished Cardiovascular: Regular rate, Regular Rhythm, Normal S1, Normal S2, No murmurs, No rub noted, No Gallop Abdomen: Bowel Sounds Present, Soft, Non Tender, Non-Distended, Obese Extremities: No cyanosis, No edema, Capillary Refill Less than 3 Seconds, Clubbing Skin: - - No change from previous Musculoskeletal: No Tenderness to Palpation of Joints or Extremities Lymphatic: No Cervical, Supraclavicular, or Inguinal Adenopathy Neurological: Cranial nerves II-XII grossly intact, Neuro grossly intact, Motor Exam 5/5 strength throughout Psych/Mental Status: Alert and oriented to time, place, person, mood and affect Vital Signs Temp Pulse Resp BP Pulse Ox 36.1 C L 90 14 91/69 90 08/29/18 12:00 08/29/18 12:00 08/29/18 12:00 08/29/18 12:00 08/29/18 12:00 Oxygen Flow Rate (L/min) 8 Oxygen Delivery Method Nasal Cannula Weight: 137.2 kg Body Mass Index (BMI) 53.8 Intake and Output for Last 24 Hours 08/27/18 08/28/18 08/29/18 23:59 23:59 23:59 Intake Total 960 / 1440 2380 / 2380 360 / 360 Output Total 850 / 1050 1000 / 1000 1550 / 1550 Balance 110 / 390 1380 / 1380 -1190 / -1190 Laboratory Tests Past 24 Hrs 08/29/18 05:50 Sodium 138 Potassium 4.0 Chloride 85 L Carbon Dioxide > 45.0 H* Anion Gap TNP BUN 37 H Creatinine 1.21 H Estim Creat Clear Calc 49.18 Est GFR (MDRD) Af Amer 59 L Est GFR (MDRD) Non-Af 49 L BUN/Creatinine Ratio 30.6 H Glucose 103 Calcium 9.0 Clinical Impression(s) from Imaging Studies Chest CT 08/28/18 14:43 IMPRESSION: Stable hypodense mass in the right lower lobe. Bibasilar airspace disease. Electronically Signed: Alvin Nerikathie, at 15:49 EDT , Service support , Medical Necessity - Tobacco Use Smoking Status: Current every day smoker Tobacco Use: Cigarettes Assessment/Plan All Active Problems (Last Updated 08/20/18 @ 16:21 by Evelyn Velasquez MD) Respiratory failure with hypoxia and hypercapnia (Acute) Bronchospasm (Resolved) Acute exacerbation of congestive heart failure (Acute) RECOMMENDATIONS: 1. Continue aggressive diuresis 2. Oxygen to keep saturations 88 to 94% 3. BiPAP with any sleep and for rescue during the day 4. CT scan without contrast as an outpatient 5. Monitor electrolytes and replace as indicated IMPRESSIONS: 1. Acute on chronic diastolic congestive heart failure/acute on chronic cor pulmonale Patient was significantly dilated RV in the past. Patient has been likely chronically hypoxic for quite some time given her hemoglobin of 15 and reported cyanosis of the feet. Would recommend keeping saturations 88 to 94% to avoid depression of respiratory drive. Patient has been diuresed over 42 pounds and is just now showing some elevation in creatinine. Continue to diurese as tolerated. Patient understands importance of maintaining airway patency with BiPAP therapy nocturnally. Patient will eventually require a right heart cathet erization once she is medically optimized. 2. Acute on chronic combined respiratory failure Likely a component secondary to #1. Also contributing would be patient's underlying diagnosis of COPD and uncontrolled obstructive sleep apnea. Patient is not compliant with MANUEL therapy and this is likely leading to recurrent hypoxemia and elevation of pulmonary artery pressures. Patient has stated that she does not want to be intubated. Patient will likely require a outpatient titration polysomnogram for optimization of BiPAP settings. We will continue to monitor with transcutaneous CO2. 3. Chronic kidney disease stage III Unclear etiology at this time. Clinical suspicion for cardiorenal syndrome. Patient does have a history of hypertension in the past, so it is likely secondary to hypertension. Patient may also have an element of venous congestion given high pulmonary artery pressures. Urine output appears to be stable at this time. Would continue to diurese as renal function allows. Electrolyte repletion as indicated 4. Morbid obesity/hypertension/hypothyroidism/history of noncompliance/active tobacco abuse/hypomagnesemia/hypokalemia Complicates care, management, recovery and prognosis. Okay to continue with baseline medications. Electrolyte replacement as indicated Code Visit Inpatient E&M: 86296 Subs Hosp L2
--- NOTE | 2018-08-29 15:41 | CASEMGMT ---
Received level of care from [facility]. FLOR faxed orders to [facility]. FLOR called Nupur at [facility] and she has the bipap, high flow O2 concentrator, and bariatric bed ready for patient. FLOR called [facility] as patient needs bariatric transport and arranged for patient to get picked up at 630p via bariatric cot. FLOR notified RN, patient, service secretary, and Nupur at [facility]. FLOR called patient's waiver medical case worker, Kellie Sierra ([phone]) and left her a voice mail letting her know patient was going to [facility] today. FLOR spoke with [facility] and patient needs a bipap before she goes home from SNF. FLOR spoke with Nupur at [facility] and let her know patient will need a bipap before she goes home from SNF. She said this can be arranged. Plan: d/c to [facility] under intermediate level of care on a convalescent stay. [facility] transported her via bariatric cot. Stephanie BOUDREAUX MSW
[2018-08-29 16:07] LABS: Folate, Hemolysate Test > 620.0 ng/mL (Not Estab.); Folate, RBC (Hct) Test 49.5 % (34.0-46.6)
--- NOTE | 2018-08-30 14:18 | CASEMGMT ---
Call to [facility] to make sure that they were aware that pt did go to SNF at this time. Per Patience at [place], they were notified previously. Nikolas FLOYD CM
--- NOTE | 2018-09-01 10:17 | DS.PCM_ITS ---
Discharge Date and Diagnosis Date of Admission: 08/20/18 Date of Discharge: 08/29/18 - Primary Discharge Diagnosis 1 acute diastolic congestive heart failure #2 Acute on chronic hypoxic and hypercapnic respiratory failure #3 morbid obesity #4 obstructive sleep apnea- #5 hypertension #6 hypothyroidism #7 chronic kidney disease stage III-etiology unknown #8 chronic obstructive pulmonary disease #9 moderate pulmonary hypertension #10 noncompliance with medical regimen #11 hypokalemia- #12 chronic anticoagulation-secondary to past history of VTE - Secondary Discharge Diagnosis Chronic Problems (Last Reviewed 09/01/18 @ 04:29 by Bill Rosen MD) Cor pulmonale (Chronic) Respiratory failure with hypoxia and hypercapnia (Chronic) Chronic diastolic CHF (congestive heart failure) (Chronic) History of COPD (Chronic) Acute exacerbation of congestive heart failure (Chronic) Pulmonary embolism (Chronic) remote history-on anticoagulants Right bundle branch block (RBBB) (Chronic) Secondary pulmonary arterial hypertension (Chronic) Nicotine dependence (Chronic) Essential (primary) hypertension (Chronic) Morbid obesity with BMI of 60.0-69.9, adult (Chronic) Hospital Course and Treatment Operations: None Procedures: None Summary of Care Provided: The patient is a 53 year old F was seen in the emergency room at [facility] with chief complaint of shortness of breath and cough productive of purulent sputum, patient is on home oxygen at 5 L continuously. Blood gas was performed on the patient and it showed CO2 retention and hypoxia, patient was placed on BiPAP and chest x-ray was obtained which was consistent with congestive heart failure, patient's beta natruretic peptide was thousand. Patient was given IV Lasix and she was admitted to PCU and given IV diuretics, she was seen in consultation by pulmonary medicine who recommended continued diuresis and use of BiPAP when needed. Patient was seen by PT and OT and it was recommended that she have short-term inpatient rehab services at the time of discharge from the hospital due to extreme debility. Patient consented to go to an extended care facility at the time of discharge. Patient lost several kilograms from diuresis during her hospital stay. On 08/29/2018, patient was seen and examined: On examination she appeared in good health and spirits. Vital signs as documented. Skin warm and dry and without overt rashes. Neck without JVD. Lungs-there are diminished lung sounds bilaterally, no rales rhonchi or wheezes were noted. Heart exam notable for regular rhythm, normal sounds and absence of murmurs, rubs or gallops. Abdomen unremarkable and without evidence of organomegaly, masses, or abdominal aortic enlargement, patient is morbidly obese. Extremities nonedematous. Neuro: Cranial nerves II through XII are grossly intact, no focal motor deficits were noted, sensation to light touch and pinprick is intact. Psych: Patient is alert and oriented x3, she does not appear anxious or depressed On 08/29/2018, patient was seen and examined felt to be in stable condition for transfer to an extended care facility. - Physical Exam Vital Signs Temp Pulse Resp BP Pulse Ox 97.5 F L 91 18 95/62 90 08/29/18 15:00 08/29/18 19:07 08/29/18 19:07 08/29/18 15:00 08/29/18 19:08 Oxygen Flow Rate (L/min) 7.5 Oxygen Delivery Method Nasal Cannula Weight: 137.2 kg Body Mass Index (BMI) 53.8 Home Medications: Medications to take at Discharge Cholecalciferol (Vitamin D3) [Vitamin D3] 50,000 unit PO TH 11/28/16 Folic Acid 1 mg PO DAILY 11/28/16 Gabapentin [Neurontin] 300 mg PO 4X/DAY 11/28/16 Levothyroxine [Synthroid] 25 mcg PO DAILY 11/28/16 Oxybutynin [Ditropan] 5 mg PO DAILY 11/28/16 Venlafaxine HCl [Venlafaxine HCl ER] 150 mg PO DAILY 11/28/16 Hydroxyzine HCl 10 mg PO TID 06/13/17 Atorvastatin Calcium [Lipitor] 40 mg PO QHS 01/07/18 Melatonin 3 mg PO QHS #30 tablet 03/19/18 Apixaban [Eliquis] 5 mg PO 0800,199903/21/18 Aspirin [Aspirin, Baby] 81 mg PO DAILY 03/21/18 Buspirone HCl 7.5 mg PO BID 03/21/18 Losartan Potassium 25 mg PO BID 03/21/18 Metoprolol Tartrate [Lopressor (beta vineet)] 25 mg PO BID 03/21/18 Allopurinol 100 mg PO DAILY 08/20/18 Famotidine 20 mg PO QHS PRN 08/20/18 Acetaminophen [Tylenol Tablet] 650 mg PO Q6H PRN PRN tab 08/29/18 Albuterol Aerosols [Ventolin Aerosols] 2.5 mg INHALATION Q2H PRN PRN vial.neb. 08/29/18 Hydrocodone Bitart/Apap 5-325 [[place] 5/325] 1 - 2 tab PO Q6H PRN PRN 7 Days #20 tab 08/29/18 Senna/Docusate Sodium [Senokot-S] 2 tab PO BID PRN PRN tab 08/29/18 Sodium Chloride 0.65% [[place] Nasal [place]] 1 spray NASAL BID PRN PRN spray.btl 08/29/18 Acetazolamide 250 mg PO DAILY 08/31/18 Bumetanide [Bumex] 2 mg PO BID 08/31/18 Ipratropium/Albuterol Sulfate [Duoneb] 3 ml INHALATION Q4HWA.RT 08/31/18 Magnesium Oxide [Mag-Ox 400] 400 mg PO DAILYCM 08/31/18 Multivitamin with Iron [Tab-A-Jessica with Iron] 1 ea PO DAILY 08/31/18 Nystatin Powder [Mycostatin Powder] 1 applic TOPICAL TID 08/31/18 Potassium Chloride [K-Dur] 20 meq PO BIDCM 08/31/18 Prednisone 30 mg PO DAILY 08/31/18 Following Prescrptions Were Given to Patient: Hydrocodone Bitart/Apap 5-325 [[place] 5/325] 1 - 2 tab PO Q6H PRN PRN 7 Days #20 tab PRN Reason: Severe Pain (6-10/10) Prescription Printed Primary Care Physician: Brian Thao MD [Primary Care Provider] - Disposition: Detention facility Minutes spent on discharge:: 32 Patient Condition:: Stable Medical Necessity - Tobacco Use Smoking Status: Current every day smoker Tobacco Use: Cigarettes Meaningful Use Info Meaningful Use Diagnoses (Choose all that apply): CHF - CHF DEJON/ARB ordered at discharge?: Yes Documented LVEF (%): 55 Code Visit Inpatient E&M: 06212 Disch Hosp
== END 2018-08-29 19:38 | disposition skilled nursing facility (03) | DRG 133 ==
LOC: ED 15:51 → PCU 16:15
PROVIDERS: Internal Medicine; Internal Medicine Critical Care Medicine; Admitting Provider Hospitalist; Emergency Provider Emergency Medicine; Family Provider Internal Medicine; PCP Internal Medicine; Visit Provider Internal Medicine
DX: J96.21 Acute and chronic respiratory failure with hypoxia (principal); I13.0 Hypertensive heart and chronic kidney disease with heart failure and stage 1 through stage 4 chronic kidney disease, or unspecified chronic kidney disease; I50.33 Acute on chronic diastolic (congestive) heart failure; J96.22 Acute and chronic respiratory failure with hypercapnia; Z99.81 Dependence on supplemental oxygen; Z68.43 Body mass index [BMI] 50.0-59.9, adult; F17.210 Nicotine dependence, cigarettes, uncomplicated; E66.01 Morbid (severe) obesity due to excess calories; N18.3 Chronic kidney disease, stage 3 (moderate); E03.9 Hypothyroidism, unspecified; F32.9 Major depressive disorder, single episode, unspecified; F41.9 Anxiety disorder, unspecified; Z66 Do not resuscitate; Z79.01 Long term (current) use of anticoagulants; J44.9 Chronic obstructive pulmonary disease, unspecified; G47.33 Obstructive sleep apnea (adult) (pediatric); Z86.711 Personal history of pulmonary embolism
CPT/HCPCS: 36415; 36600; 71045; 71046; 71260; 80048; 82607; 82728; 82747; 82803; 82962; 83540; 83550; 83735; 83880; 84100; 84484; 85014; 85025; 85610; 93005; 94002; 94003; 94640; 94667; 94668; 97110; 97162; 97166; 97530; 99285; J7040; J7050; Q9967; A4216; J1940; J2405

== ENCOUNTER 2018-08-31 21:17 | Observation (INO) | payer MEDICAID, SELFPAY ==
[2018-08-20 16:35] VITALS: BMI 53.8
[2018-08-31] VITALS (8 sets, daily range): BP systolic 110–115; BP diastolic 70–78; PULSE 82–89; RESP 12–20; TEMP 36.1; O2SAT 88–96; BMI 47.1
[2018-08-31] MEDS: HYDROcodone Bitartrate/Apap 5/325 Tablet PO (23:25)
[2018-08-31] MEDS: 0.9% NaCl Peripheral Flush Adult/Peds IV (23:26)
[2018-08-31] MEDS: Ipratropium/Albuterol Sulfate 3 ML AMPUL.NEB INHALATION (23:37)
[2018-08-31] MEDS: Losartan Potassium 25 MG Tablet PO (23:40)
[2018-08-31] MEDS: MELATONIN 3 MG TABLET PO (23:41)
[2018-08-31] MEDS: Gabapentin 300 MG Capsule PO (23:41)
[2018-08-31] MEDS: Bumetanide 2 MG Tablet PO (23:41)
[2018-08-31] MEDS: busPIRone 5 MG Tablet 7.5 MG PO (23:41)
[2018-08-31] MEDS: hydrOXYzine 10 MG Tablet PO (23:41)
[2018-08-31] MEDS: APIXABAN 5 MG TABLET PO (23:42)
[2018-08-31] MEDS: Metoprolol Tartrate 25 MG Tablet PO (23:42)
[2018-08-31] MEDS: Atorvastatin Calcium 40 MG Tablet PO (23:42)
--- NOTE | 2018-08-31 23:50 | PCM.HP.STD ---
Problem List (1) Cor pulmonale Status: Chronic (2) Chronic diastolic CHF (congestive heart failure) Status: Chronic (3) History of COPD Status: Chronic (4) Essential (primary) hypertension Status: Chronic (5) Respiratory failure with hypoxia and hypercapnia Status: Chronic (6) Acute exacerbation of congestive heart failure Status: Chronic History of Present Illness Date of Admission: 08/31/18 Chief Complaint: shortness of breath The patient is a 53 year old F with a significant history of chronic diastolic heart failure; obstructive sleep apnea; pulmonary artery hypertension; cor pulmonale who was discharged from the hospital 2 days ago returning with shortness of breath. On the last admission patient was diagnosed with acute on chronic diastolic congestive heart failure/acute on chronic cor pulmonale as well as acute on chronic combined respiratory failure and she was discharged to [facility] on a BiPAP at night and as needed. At baseline patient uses 6 L of oxygen by nasal cannula. While at the half-way, patient was sent to the emergency department at [facility]. Per patient she did not know why she was sent to the ED except that the half-way told her that she is having low breathing. On one hand she denies feeling shortness of breath. On the other hand she reports that at the half-way she was having some kind of device similar to BiPAP but it was not giving her enough oxygen. Per report received from hospitalist who talked to emergency department doctor at [facility] ED, patient was sent from the half-way because of shortness of breath and because of elevated bicarbonate of 45. Per report received from patient's Nurse while inpatient at our Hospital; patient was sent to [facility] ED because while at the half-way she was noncompliant and she was trying to smoke. Also, the patient may not have been compliant with her BiPAP. For some reason patient was given a sitter at the half-way. Of note patient was scheduled to start receiving steroids at the half-way beginning 09/01/2018. At the emergency department at [facility] patient was given Solu-Medrol; breathing treatments and Levaquin. Chest x-ray showed right lower lobe density. However from previous records patient has had this same radiographic findings. Past Medical History Past Medical History (Chronic Problems): Chronic Problems (Last Reviewed 09/01/18 @ 04:29 by Bill Rosen MD) Cor pulmonale (Chronic) Respiratory failure with hypoxia and hypercapnia (Chronic) Chronic diastolic CHF (congestive heart failure) (Chronic) History of COPD (Chronic) Acute exacerbation of congestive heart failure (Chronic) Pulmonary embolism (Chronic) remote history-on anticoagulants Right bundle branch block (RBBB) (Chronic) Secondary pulmonary arterial hypertension (Chronic) Nicotine dependence (Chronic) Essential (primary) hypertension (Chronic) Morbid obesity with BMI of 60.0-69.9, adult (Chronic) Medical History: Medical History (Last Reviewed 09/01/18 @ 04:29 by Bill Rosen MD) Pulmonary embolism (Chronic) I26.99 remote history-on anticoagulants Right bundle branch block (RBBB) (Chronic) I45.10 Secondary pulmonary arterial hypertension (Chronic) I27.21 Nicotine dependence (Chronic) F17.200 Essential (primary) hypertension (Chronic) I10 Morbid obesity with BMI of 60.0-69.9, adult (Chronic) E66.01, Z68.44 COPD (chronic obstructive pulmonary disease) J44.9 Chronic kidney disease N18.9 Hypothyroidism E03.9 Obstructive sleep apnea G47.33 Transaminitis R74.0 Sleep apnea syndrome (Inactive) G47.30 Allergies oxycodone [Oxycodone] Allergy (Verified 08/20/18 15:30) Rash oxycodone HCl [From Percodan] Allergy (Verified 03/21/18 11:44) Hives oxycodone terephthalate [From Percodan] Allergy (Verified 03/21/18 11:44) Hives Sulfa (Sulfonamide Antibiotics) Allergy (Verified 03/21/18 11:44) Hives cefuroxime Adverse Reaction (Verified 03/21/18 11:44) Unknown Cephalosporins Adverse Reaction (Verified 03/21/18 11:44) Vomiting meperidine HCl [From Demerol] Adverse Reaction (Verified 03/21/18 11:44) Vomiting NSAIDS (Non-Steroidal Anti-Inflamma Adverse Reaction (Verified 03/21/18 11:44) Unknown Home Medications: Ambulatory Orders Medication Instructions Recorded Cholecalciferol (Vitamin D3) 50,000 unit PO TH 11/28/16 [Vitamin D3] Folic Acid 1 mg PO DAILY 11/28/16 Gabapentin [Neurontin] 300 mg PO 4X/DAY 11/28/16 Levothyroxine [Synthroid] 25 mcg PO DAILY 11/28/16 Oxybutynin [Ditropan] 5 mg PO DAILY 11/28/16 Venlafaxine HCl [Venlafaxine HCl 150 mg PO DAILY 11/28/16 ER] Hydroxyzine HCl 10 mg PO TID 06/13/17 Atorvastatin Calcium [Lipitor] 40 mg PO QHS 01/07/18 Melatonin 3 mg PO QHS #30 tablet 03/19/18 Apixaban [Eliquis] 5 mg PO 08,199903/21/18 Aspirin [Aspirin, Baby] 81 mg PO DAILY 03/21/18 Buspirone HCl 7.5 mg PO BID 03/21/18 Losartan Potassium 25 mg PO BID 03/21/18 Metoprolol Tartrate [Lopressor 25 mg PO BID 03/21/18 (beta vineet)] Allopurinol 100 mg PO DAILY 08/20/18 Famotidine 20 mg PO QHS PRN 08/20/18 Acetaminophen [Tylenol Tablet] 650 mg PO Q6H PRN PRN tab 08/29/18 Albuterol Aerosols [Ventolin 2.5 mg INHALATION Q2H PRN PRN 08/29/18 Aerosols] vial.neb. Hydrocodone Bitart/Apap 5-325 1 - 2 tab PO Q6H PRN PRN 7 Days 08/29/18 [[place] 5/325] #20 tab Senna/Docusate Sodium [Senokot-S] 2 tab PO BID PRN PRN tab 08/29/18 Sodium Chloride 0.65% [[place] Nasal 1 spray NASAL BID PRN PRN 08/29/18 [place]] spray.btl Acetazolamide 250 mg PO DAILY 08/31/18 Bumetanide [Bumex] 2 mg PO BID 08/31/18 Ipratropium/Albuterol Sulfate 3 ml INHALATION Q4HWA.RT 08/31/18 [Duoneb] Magnesium Oxide [Mag-Ox 400] 400 mg PO DAILYCM 08/31/18 Multivitamin with Iron [Tab-A-Jessica 1 ea PO DAILY 08/31/18 with Iron] Nystatin Powder [Mycostatin Powder] 1 applic TOPICAL TID 08/31/18 Potassium Chloride [K-Dur] 20 meq PO BIDCM 08/31/18 Prednisone 30 mg PO DAILY 08/31/18 Surgical History: Surgical History (Last Reviewed 09/01/18 @ 04:29 by Bill Rosen MD) History of left heart catheterization Onset Date: 06/16/17 Z98.890 Hx of cholecystectomy Z90.49 Surgical History: cholecystectomy, - - 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 Maternal History Items: - - Denies known cardiac history. Review of Systems Constitutional: Denies: Chills, Fever, Weight Change HEENT: Denies: Head Aches, Sinus Congestion, Sinus Drainage Cardiovascular: Reports: Orthopnea - chronic. Denies: Chest Pain, Palpitations Respiratory: Reports: Shortness of Breath Gastrointestinal: Denies: Abdominal Pain, Nausea, Vomiting Genitourinary: Denies: Dysuria Musculoskeletal: Denies: Joint Pain, Joint Tenderness Skin: Denies: Rash, Wounds Neurological: Denies: Numbness, Tingling, Focal weakness Psychiatric: Denies: Anxiety, Depression, Homicidal Ideations, Suicidal Ideations Hematologic/ Lymphatic: Denies: Easy Bruising, Easy Bleeding VTE Information - Inpt Only VTE Present on Admission: No VTE Mechan Device Prophylaxis: None VTE Pharm Prophylaxis ordered?: No Reason prophylaxis not ordered:: Treatment Not Indicated - Patient on home Eliquis for a clot in the chest/heart; Eliquis continued - Physical Exam General: Alert, Oriented x3, - - Morbidly Obese HEENT: Atraumatic, PERRLA, EOMI, Normocephalic Neck: Supple, No JVD, Negative Carotid Bruits Lungs: Diminished - mild, Rales - bilateral bases, Tachypneic Cardiovascular: Regular rate, No murmurs Abdomen: Bowel Sounds Present, Soft, Non Tender Extremities: No edema, Capillary Refill Less than 3 Seconds Skin: - - Mild excoriation on multiple places of her buttocks. Musculoskeletal: No Tenderness to Palpation of Joints or Extremities Neurological: Cranial nerves II-XII grossly intact Psych/Mental Status: Normal Affect, Appropriate Vital Signs Temp Pulse Resp BP Pulse Ox 96.9 F L 89 20 H 115/70 88 08/31/18 21:45 08/31/18 23:42 08/31/18 23:37 08/31/18 21:46 08/31/18 23:29 Oxygen Flow Rate (L/min) 7 Oxygen Delivery Method Nasal Cannula Weight: 132.5 kg Body Mass Index (BMI) 47.1 Assessment/Plan All Active Problems (Last Reviewed 09/01/18 @ 04:29 by Bill Rosen MD) Bronchospasm (Resolved) The patient is a 53 year old F with a significant history of chronic diastolic heart failure; probably sleep apnea; pulmonary artery hypertension; cor pulmonale who was discharged from the hospital 2 days ago returning with shortness of breath that probably may be due to her diagnosis of chronic diastolic congestive heart failure and chronic core pulmonale. Chronic diastolic congestive heart failure/chronic cor pulmonale. The patient was admitted on 08/20/2018 and was discharged on 08/29/2018 with a diagnosis of acute chronic diastolic congestive heart failure/acute on chronic cor pulmonale. ABG at [facility] ED showed pH of 7.38; PCO2 of 67; PO2 of 58 while on FiO2 of 44%. Patient was on a BiPAP at [facility] emergency department. It is unclear whether patient actually deteriorated at the half-way or it was difficult for the half-way to take care of her. Importantly, nursing staff at our Hospital reports that on a previous admission she had difficulty with keeping her BiPAP on. We will continue patient on her Bumex; with potassium supplementation. Recommend discussion with half-way team and to ascertain capability of half-way to take care of patient should patient remains stable for discharge. On the previous admission patient's was seen by pipeliner who recommended right heart catheterization when patient is medically stable and also suggested an outpatient titration polysomnogram for optimization of BiPAP settings. Chronic combined respiratory failure From ABG at Hospital ED her pH was 7.38 and a PCO2 was 67 which showed appropriate compensation. Her PO2 was 58. Her bicarbonate at the half-way was 45 on BMP. Continue patient on BiPAP at night and for sleep as recommended on previous admission. Continue oxygen supplementation while off BiPAP. Oxygen supplementation to keep oxygen saturation less than 92% to prevent respiratory depression. COPD Patient appeared stable with no wheezes on presentation. She was transitioned to high flow oxygen on presentation. On 7 L of high flow oxygen at the hospital the patient oxygen saturation was 88% and on BiPAP with FiO2 of 40% patient her oxygen saturation was 96%. Patient was due to be started on prednisone at half-way on 09/01/2018; strangely a day after she was sent from the half-way to the ED. We will hold off prednisone at this time. Clinical monitoring. If patient is wheezing or decompensate consider resuming steroids. Scheduled DuoNeb continued PRN albuterol Tobacco abuse Counseled Nicotine patch ordered CKD stage III Her creatinine at the half-way was 1.4 on the same day of presentation. And at [facility] ED her creatinine was 1.3. Review of old records show that her creatinine is slightly elevated but still within her baseline. Trend BMP. Thromboembolism Patient is on home Eliquis for supposed clots in her chest/Heart. Eliquis continued Excoriation of multiple areas of buttocks Calmoseptine ordered. DVT prophylaxis Not indicated since patient is on Eliquis CODE STATUS: Full code now. On previous admission she was a DNR CCA. CODE STATUS was extensively discussed. Code Visit OBSV E&M: 14865 Initial observation care L3
[2018-09-01] VITALS (15 sets, daily range): BP systolic 104–105; BP diastolic 54–85; PULSE 75–82; RESP 12–20; TEMP 36.6–37.2; O2SAT 87–94
[2018-09-01] MEDS: Levothyroxine 25 MCG TABLET PO (06:12)
[2018-09-01] MEDS: Nystatin Powder 15gm Bottle 1 APPLIC TOPICAL ×2 (06:12→14:44)
[2018-09-01] MEDS: hydrOXYzine 10 MG Tablet PO ×2 (06:12→14:44)
[2018-09-01 06:15] LABS: Absolute Lymphocyte Count 0.74 X10^3/uL (0.83-4.51); Basophil# 0.02 X10^3/uL; Basophil% 0.3 % (0-1); Hematocrit 51.5 % (37-47); Hemoglobin 14.2 g/dL (12.0-15.0); Lymphocyte # 0.74 X10^3/ul (4.0); Lymphocyte % 9.4 % (19-41); Mean Corp Hgb Conc 27.6 g/dL (32-36); Mean Corpuscular Hgb 21.5 pg (27.0-32.0); Mean Corpuscular Volume 78.1 fL (81-99); Mean Platelet Vol. 9.4 fl (6.2-12.0); Monocyte# 0.41 X10^3/uL; Monocyte% 5.2 % (0-10); NRBC Flagged by Analyzer 0 % (0-5); Neutrophil # 6.68 X10^3/uL (2.7-7.7); Neutrophil % 84.6 % (47-70); POSITIVE MORPHOLOGY YES; Platelet Count 345 K/mm3 (150-450); RBC Distribution Width CV 27.9 % (11.6-14.6); RBC Distribution Width SD 76.6 fl (35.1-43.9); Red Blood Count 6.59 M/mm3 (4.2-5.4); White Blood Count 7.9 K/mm3 (4.4-11.0)
[2018-09-01 06:16] LABS: Differential Indicated SCAN CRITERIA MET
[2018-09-01 06:46] LABS: Anisocytosis 1+; Differential Comment SCANNED; Hypochromasia RARE; Microcytosis 1+; Polychromasia 1+
[2018-09-01] MEDS: Ipratropium/Albuterol Sulfate 3 ML AMPUL.NEB INHALATION ×3 (06:52→14:47)
[2018-09-01 07:00] LABS: Anion Gap 6 (5-15); BUN 38 mg/dL (7-18); BUN/Creat Ratio 32.8 RATIO (10-20); Calcium,Total 8.9 mg/dL (8.5-10.1); Chloride 93 mmol/L (98-107); Creatinine, Serum 1.16 mg/dL (0.55-1.02); EST Glomerular Filtration Rate 52 mL/min (>60); Est Glom Filt Rate - Afr Amer 62 mL/min (>60); Glucose 175 mg/dL (74-106); Potassium 3.5 mmol/L (3.5-5.1); Sodium Level 138 mmol/L (136-145)
[2018-09-01] MEDS: Losartan Potassium 25 MG Tablet PO (10:34)
[2018-09-01] MEDS: Oxybutynin 5 MG Tablet PO (10:34)
[2018-09-01] MEDS: Aspirin 81 MG TAB.CHEW PO (10:34)
[2018-09-01] MEDS: Magnesium Oxide 400 MG Tablet PO (10:34)
[2018-09-01] MEDS: busPIRone 5 MG Tablet 7.5 MG PO (10:34)
[2018-09-01] MEDS: Allopurinol 100 MG Tablet PO (10:34)
[2018-09-01] MEDS: APIXABAN 5 MG TABLET PO (10:35)
[2018-09-01] MEDS: Acetaminophen 325 MG Tablet 650 MG PO (10:35)
[2018-09-01] MEDS: Folic Acid 1 MG Tablet PO (10:35)
[2018-09-01] MEDS: AcetaZOLAMIDE 250 MG Tablet PO (10:35)
[2018-09-01] MEDS: Metoprolol Tartrate 25 MG Tablet PO (10:35)
[2018-09-01] MEDS: Gabapentin 300 MG Capsule PO ×2 (10:35→14:44)
[2018-09-01] MEDS: Venlafaxine XR 150 MG Capsule PO (10:35)
--- NOTE | 2018-09-01 10:35 | CASEMGMT ---
Social Work Referral: Return to SNF Informant: talent partner Met with patient in room. Patient previously from [facility] and is agreeable to return to [facility]. Telephone call to [facility], Tammy Munoz reporting to be able to accept patient back. Tammy stating to need transfer from and med list. Tammy states to not need a PASRR or LOC. Transfer form and medication list faxed to [facility]. Green sheet placed on chart. Td MCLAUGHLIN, JANUSZ
[2018-09-01] MEDS: Bumetanide 2 MG Tablet PO (10:36)
[2018-09-01] MEDS: Menthol/Lanolin/Calamine/Znox 113 GM Tube 1 APPLIC TOPICAL (10:36)
--- NOTE | 2018-09-01 14:05 | PN_ITS ---
- Physical Exam Vital Signs Temp Pulse Resp BP Pulse Ox 97.8 F 82 20 H 105/57 L 90 09/01/18 09:45 09/01/18 11:04 09/01/18 11:04 09/01/18 09:45 09/01/18 09:53 Oxygen Flow Rate (L/min) 8 Oxygen Delivery Method Nasal Cannula Weight: 293 lb 3.437 oz Body Mass Index (BMI) 47.1 Intake and Output for Last 24 Hours 08/30/18 08/31/18 09/01/18 23:59 23:59 23:59 Intake Total 240 / 240 Balance 240 / 240 Laboratory Tests Past 24 Hrs 09/01/18 09/01/18 05:41 05:41 WBC 7.9 RBC 6.59 H Hgb 14.2 Hct 51.5 H MCV 78.1 L MCH 21.5 L MCHC 27.6 L RDW Std Deviation 76.6 H RDW Coeff of [place] 27.9 H Plt Count 345 MPV 9.4 Immature Gran % (Auto) 0.500 Neut % (Auto) 84.6 H Lymph % (Auto) 9.4 L [place] % (Auto) 5.2 Eos % (Auto) 0.0 Baso % (Auto) 0.3 Absolute Neuts (auto) Not Reportable Absolute Lymphs (auto) 0.74 L Absolute Nucleated RBC 0.00 Nucleated RBC % 0 Differential Comment SCANNED Polychromasia 1+ Hypochromasia RARE Anisocytosis 1+ Microcytosis 1+ Sodium 138 Potassium 3.5 Chloride 93 L Carbon Dioxide 39.0 H Anion Gap 6 BUN 38 H Creatinine 1.16 H Estim Creat Clear Calc 51.30 Est GFR (MDRD) Af Amer 62 Est GFR (MDRD) Non-Af 52 L BUN/Creatinine Ratio 32.8 H Glucose 175 H Calcium 8.9 Medical Necessity - Tobacco Use Smoking Status: Current every day smoker Assessment/Plan All Active Problems (Last Reviewed 09/01/18 @ 04:29 by Bill Rosen MD) Bronchospasm (Resolved) 1. Chronic COPD/obstructive sleep apnea/pulmonary hypertension with chronic combined respiratory failure-Continue supplement oxygen to maintain O2 sat above 90%. Patient's oxygen stable baseline chronic O2 requirements. Continue BIPAP nightly. 2. Chronic diastolic CHF/chronic cor pulmonale-BNP 1251. Chest x-ray without evidence of CHF. Echocardiogram 06/2017 EF 75%, stage 1 diastolic dysfunction, mild tricuspid valve insufficiency, RVSP 56mmhg. Patient received IV lasix with quick improvement in shortness of breath and significant urine output. Ras wrap bilateral lower extremities. Continue supplement oxygen to maintain O2 above 90%. Patient will resume home Bumex regimen at discharge. Follow-up with primary care physician in 1 week. 3. CKD stage III-improved. 4. Bilateral lower extremity lymphedema-Ras wraps bilateral lower extremities. Do note feel patient has cellulitis. Chronic skin changes BLLE. Eucerin and ras wraps. 5. History of PE-continue Eliquis. 6. Hypertension-stable, continue home losartan, metoprolol regimen. 7. Tobacco dependence-current pack and half per day smoker. Strongly encouraged tobacco cessation. 8. Hypothyroidism-continue Synthroid regimen. 9. Super morbid obesity-encouraged diet and lifestyle modifications. 10. Depression/anxiety-continue home venlafaxine/buspirone regimen. DVT prophylaxis Discharge planning: This patient was seen by CHERYL Lane under the supervision of Dr. Musa.
--- NOTE | 2018-09-01 14:09 | PCM.EXTCARCO ---
- Diet 08/31/18 22:24 Diet: 2 Gram Sodium, carb controlled diet, 1600 zaire daily Is pt able to select menu?: Yes - Routine Orders/Code Status Enema Type: Fleetz Enema Frequency: Daily PRN Suppository Type: Dulcolax 10mg Suppository Frequency: Daily PRN O2 Liters per Minute: 8 O2 Frequency: Continuous Keep PO Greater than or Equal to (%): 90 - BIPAP 12/8 QHS and PRN Routine Lab Work: CBC, BMP, - - Q Week. Code Status: DNRCC-A - Suggestions for Active Care Change Position every (hours): 2 Times a day to sit in chair: 3 - Therapies Physical Therapy: Eval and Treat Occupational Therapy: Eval and Treat - Problem/Diagnosis (1) Cor pulmonale Status: Chronic Current Visit: No (2) Respiratory failure with hypoxia and hypercapnia Status: Chronic Current Visit: No (3) Chronic diastolic CHF (congestive heart failure) Status: Chronic Current Visit: No (4) History of COPD Status: Chronic Current Visit: No (5) Pulmonary embolism Status: Chronic Comment: remote history-on anticoagulants Current Visit: No (6) Nicotine dependence Status: Chronic Current Visit: No (7) Essential (primary) hypertension Status: Chronic Current Visit: No (8) Morbid obesity with BMI of 60.0-69.9, adult Status: Chronic Current Visit: No - Allergies/Procedures Done in Hospital Allergies/Adverse Reactions: Allergies oxycodone [Oxycodone] Allergy (Verified 08/20/18 15:30) Rash oxycodone HCl [From Percodan] Allergy (Verified 03/21/18 11:44) Hives oxycodone terephthalate [From Percodan] Allergy (Verified 03/21/18 11:44) Hives Sulfa (Sulfonamide Antibiotics) Allergy (Verified 03/21/18 11:44) Hives cefuroxime Adverse Reaction (Verified 03/21/18 11:44) Unknown Cephalosporins Adverse Reaction (Verified 03/21/18 11:44) Vomiting meperidine HCl [From Demerol] Adverse Reaction (Verified 03/21/18 11:44) Vomiting NSAIDS (Non-Steroidal Anti-Inflamma Adverse Reaction (Verified 03/21/18 11:44) Unknown Procedures: None - Type of Care/Length of Stay Estimated LOS: Convalescent Care Less Than 30 days Type of Care Needed: Skilled Rehab Potential: Fair Prognosis: Fair - Additional Orders/Day of Discharge H&P will serve as current which was dated: 08/31/18 Day of Discharge: 09/01/18 - Dietary and Speech Recommendations Dietitian Recommendations/Changes: Recommend cardiac, low sodium diet w/ fluid restriction as indicated. - Follow Up Care Primary Care Physician: Brian Thao MD [Primary Care Provider] - Please follow up with your Primary Care Physician in: 1 Week
--- NOTE | 2018-09-01 14:17 | PCM.DC.SUM ---
<Jennyfer Kimball - Last Filed: 09/01/18 14:31> Discharge Date and Diagnosis Date of Admission: 08/20/18 Date of Discharge: 09/01/18 - Primary Discharge Diagnosis 1. Chronic COPD/obstructive sleep apnea/pulmonary hypertension with chronic combined respiratory failure 2. Chronic diastolic CHF/chronic cor pulmonale 3. CKD stage III 4. Bilateral lower extremity lymphedema 5. History of PE 6. Hypertension 7. Tobacco dependence 8. Hypothyroidism 9. Super morbid obesity 10. Depression/anxiety - Secondary Discharge Diagnosis Chronic Problems (Last Reviewed 09/01/18 @ 04:29 by Bill Rosen MD) Cor pulmonale (Chronic) Respiratory failure with hypoxia and hypercapnia (Chronic) Chronic diastolic CHF (congestive heart failure) (Chronic) History of COPD (Chronic) Acute exacerbation of congestive heart failure (Chronic) Pulmonary embolism (Chronic) remote history-on anticoagulants Right bundle branch block (RBBB) (Chronic) Secondary pulmonary arterial hypertension (Chronic) Nicotine dependence (Chronic) Essential (primary) hypertension (Chronic) Morbid obesity with BMI of 60.0-69.9, adult (Chronic) Hospital Course and Treatment Operations: None Procedures: None Summary of Care Provided: The patient is a 53 year old F admitted 08/31/2018 due to low breathing. Patient denies that she had shortness of breath or difficulty breathing. Found to be at baseline respiratory status. 1. Chronic COPD/obstructive sleep apnea/pulmonary hypertension with chronic combined respiratory failure-Continue supplement oxygen to maintain O2 sat above 90%. Patient's oxygen stable baseline chronic O2 requirements. Continue BIPAP nightly. Follow-up with primary care provider in 1 week. 2. Chronic diastolic CHF/chronic cor pulmonale-no acute exacerbation. Continue home Bumex regimen. Echocardiogram June 2017 showed an EF of 75%, stage I diastolic dysfunction, RVSP estimated to be 56 mmHg. 3. CKD stage III-stable. 4. Bilateral lower extremity lymphedema-Ras wraps bilateral lower extremities. 5. History of PE-continue Eliquis. 6. Hypertension-stable, continue home losartan, metoprolol regimen. 7. Tobacco dependence-current pack and half per day smoker. Strongly encouraged tobacco cessation. 8. Hypothyroidism-continue Synthroid regimen. 9. Super morbid obesity-encouraged diet and lifestyle modifications. Calorie, carb controlled diet. 10. Depression/anxiety-continue home venlafaxine/buspirone regimen. 11. Physical debility- return to SNF at [place] for further PT/OT. Patient seen and examined prior to discharge. Physical assessment as noted below. Patient is stable for discharge with follow up recommendations as noted above. This patient was seen by CHERYL Lane under the supervision of Dr. Musa. - Physical Exam General: Alert, Oriented x3, Cooperative HEENT: Atraumatic, PERRLA, EOMI, Normocephalic Neck: Supple, No JVD, Negative Carotid Bruits Lungs: Clear to auscultation, Diminished Cardiovascular: Regular rate, Regular Rhythm, Normal S1, Normal S2, No murmurs Abdomen: Bowel Sounds Present, Soft, Non Tender, Non-Distended Extremities: No clubbing, No cyanosis, Capillary Refill Less than 3 Seconds, - - Chronic lymphedema bilateral lower extremities Skin: No rashes, No breakdown, - - Buttocks excoriation. Musculoskeletal: No Tenderness to Palpation of Joints or Extremities Neurological: Cranial nerves II-XII grossly intact, Neuro grossly intact Psych/Mental Status: Agitated Vital Signs Temp Pulse Resp BP Pulse Ox 97.8 F 82 20 H 105/57 L 90 09/01/18 09:45 09/01/18 11:04 09/01/18 11:04 09/01/18 09:45 09/01/18 09:53 Oxygen Flow Rate (L/min) 8 Oxygen Delivery Method Nasal Cannula Weight: 293 lb 3.437 oz Body Mass Index (BMI) 47.1 Intake and Output for Last 24 Hours 08/30/18 08/31/18 09/01/18 23:59 23:59 23:59 Intake Total 240 / 240 Balance 240 / 240 Laboratory Tests Past 24 Hrs 09/01/18 09/01/18 05:41 05:41 WBC 7.9 RBC 6.59 H Hgb 14.2 Hct 51.5 H MCV 78.1 L MCH 21.5 L MCHC 27.6 L RDW Std Deviation 76.6 H RDW Coeff of Beltran 27.9 H Plt Count 345 MPV 9.4 Immature Gran % (Auto) 0.500 Neut % (Auto) 84.6 H Lymph % (Auto) 9.4 L [place] % (Auto) 5.2 Eos % (Auto) 0.0 Baso % (Auto) 0.3 Absolute Neuts (auto) Not Reportable Absolute Lymphs (auto) 0.74 L Absolute Nucleated RBC 0.00 Nucleated RBC % 0 Differential Comment SCANNED Polychromasia 1+ Hypochromasia RARE Anisocytosis 1+ Microcytosis 1+ Sodium 138 Potassium 3.5 Chloride 93 L Carbon Dioxide 39.0 H Anion Gap 6 BUN 38 H Creatinine 1.16 H Estim Creat Clear Calc 51.30 Est GFR (MDRD) Af Amer 62 Est GFR (MDRD) Non-Af 52 L BUN/Creatinine Ratio 32.8 H Glucose 175 H Calcium 8.9 Home Medications: Medications to take at Discharge Cholecalciferol (Vitamin D3) [Vitamin D3] 50,000 unit PO TH 11/28/16 Folic Acid 1 mg PO DAILY 11/28/16 Gabapentin [Neurontin] 300 mg PO 4X/DAY 11/28/16 Levothyroxine [Synthroid] 25 mcg PO DAILY 11/28/16 Oxybutynin [Ditropan] 5 mg PO DAILY 11/28/16 Venlafaxine HCl [Venlafaxine HCl ER] 150 mg PO DAILY 11/28/16 Hydroxyzine HCl 10 mg PO TID 06/13/17 Atorvastatin Calcium [Lipitor] 40 mg PO QHS 01/07/18 Melatonin 3 mg PO QHS #30 tablet 03/19/18 Apixaban [Eliquis] 5 mg PO 0800,199903/21/18 Aspirin [Aspirin, Baby] 81 mg PO DAILY 03/21/18 Buspirone HCl 7.5 mg PO BID 03/21/18 Losartan Potassium 25 mg PO BID 03/21/18 Metoprolol Tartrate [Lopressor (beta vineet)] 25 mg PO BID 03/21/18 Allopurinol 100 mg PO DAILY 08/20/18 Famotidine 20 mg PO QHS PRN 08/20/18 Acetaminophen [Tylenol Tablet] 650 mg PO Q6H PRN PRN tab 08/29/18 Albuterol Aerosols [Ventolin Aerosols] 2.5 mg INHALATION Q2H PRN PRN vial.neb. 08/29/18 Hydrocodone Bitart/Apap 5-325 [[place] 5/325] 1 - 2 tab PO Q6H PRN PRN 7 Days #20 tab 08/29/18 Senna/Docusate Sodium [Senokot-S] 2 tab PO BID PRN PRN tab 08/29/18 Sodium Chloride 0.65% [[place] Nasal [place]] 1 spray NASAL BID PRN PRN spray.btl 08/29/18 Acetazolamide 250 mg PO DAILY 08/31/18 Bumetanide [Bumex] 2 mg PO BID 08/31/18 Ipratropium/Albuterol Sulfate [Duoneb] 3 ml INHALATION Q4HWA.RT 08/31/18 Magnesium Oxide [Mag-Ox 400] 400 mg PO DAILYCM 08/31/18 Multivitamin with Iron [Tab-A-Jessica with Iron] 1 ea PO DAILY 08/31/18 Nystatin Powder [Mycostatin Powder] 1 applic TOPICAL TID 08/31/18 Potassium Chloride [K-Dur] 20 meq PO BIDCM 08/31/18 Prednisone 30 mg PO DAILY 08/31/18 Primary Care Physician: Brian Thao MD [Primary Care Provider] - Please follow up with your Primary Care Physician in: 1 Week Disposition: Half-Way facility Minutes spent on discharge:: 35 Patient Condition:: Stable Medical Necessity - Tobacco Use Smoking Status: Current every day smoker Meaningful Use Info Meaningful Use Diagnoses (Choose all that apply): None applicable <Tex Musa F - Last Filed: 09/01/18 14:54> Discharge Date and Diagnosis - Secondary Discharge Diagnosis Chronic Problems (Last Reviewed 09/01/18 @ 04:29 by Bill Rosen MD) Cor pulmonale (Chronic) Respiratory failure with hypoxia and hypercapnia (Chronic) Chronic diastolic CHF (congestive heart failure) (Chronic) History of COPD (Chronic) Acute exacerbation of congestive heart failure (Chronic) Pulmonary embolism (Chronic) remote history-on anticoagulants Right bundle branch block (RBBB) (Chronic) Secondary pulmonary arterial hypertension (Chronic) Nicotine dependence (Chronic) Essential (primary) hypertension (Chronic) Morbid obesity with BMI of 60.0-69.9, adult (Chronic) Hospital Course and Treatment Summary of Care Provided: The patient is a 53 year old F [] - Physical Exam Vital Signs Temp Pulse Resp BP Pulse Ox 97.8 F 76 18 105/57 L 90 09/01/18 09:45 09/01/18 14:47 09/01/18 14:47 09/01/18 09:45 09/01/18 09:53 Oxygen Flow Rate (L/min) 8 Oxygen Delivery Method Nasal Cannula Weight: 293 lb 3.437 oz Body Mass Index (BMI) 47.1 Intake and Output for Last 24 Hours 08/30/18 08/31/18 09/01/18 23:59 23:59 23:59 Intake Total 240 / 240 Balance 240 / 240 Laboratory Tests Past 24 Hrs 09/01/18 09/01/18 05:41 05:41 WBC 7.9 RBC 6.59 H Hgb 14.2 Hct 51.5 H MCV 78.1 L MCH 21.5 L MCHC 27.6 L RDW Std Deviation 76.6 H RDW Coeff of Beltran 27.9 H Plt Count 345 MPV 9.4 Immature Gran % (Auto) 0.500 Neut % (Auto) 84.6 H Lymph % (Auto) 9.4 L [place] % (Auto) 5.2 Eos % (Auto) 0.0 Baso % (Auto) 0.3 Absolute Neuts (auto) Not Reportable Absolute Lymphs (auto) 0.74 L Absolute Nucleated RBC 0.00 Nucleated RBC % 0 Differential Comment SCANNED Polychromasia 1+ Hypochromasia RARE Anisocytosis 1+ Microcytosis 1+ Sodium 138 Potassium 3.5 Chloride 93 L Carbon Dioxide 39.0 H Anion Gap 6 BUN 38 H Creatinine 1.16 H Estim Creat Clear Calc 51.30 Est GFR (MDRD) Af Amer 62 Est GFR (MDRD) Non-Af 52 L BUN/Creatinine Ratio 32.8 H Glucose 175 H Calcium 8.9 Code Visit Addendum: Dr. Musa I personally examined the patient and reviewed the chart. I agree with the above. 53-year-old female was recently admitted for diastolic heart failure and acute on chronic respiratory failure and was transferred to a residential. She presented to [facility] yesterday from the residential because they told her she was having shortness of breath. She states that she has been breathing the same as she always has and feels about the same as she did when she was discharged from the hospital on 08/29/2018. Her work-up initially in the ER and on the day of discharge showed that her lab work and her general condition was better today than it was at the time of her discharge. I stressed to her that she needs to continue her BiPAP every night as well as her oxygen to maintain sats above 90%. She is also to continue her home Bumex regimen which is likely the culprit for an elevated bicarb. No changes were made to her medication regimen, and she can return back to the residential, which she agreed to. OBSV E&M: [id number] Observation care discharge
[2018-09-01] MEDS: HYDROcodone Bitartrate/Apap 5/325 Tablet PO (14:44)
--- NOTE | 2018-09-01 15:30 | NURSING ---
REPORT CALLED TO STACI FLOYD AT [facility]
== END 2018-09-01 14:15 | disposition skilled nursing facility (03) ==
PROVIDERS: Admitting Provider Hospitalist; Family Provider Internal Medicine; PCP Internal Medicine; Referring Provider Hospitalist; Visit Provider Family Medicine
DX: J44.9 Chronic obstructive pulmonary disease, unspecified (principal); J96.12 Chronic respiratory failure with hypercapnia; J96.11 Chronic respiratory failure with hypoxia; I50.33 Acute on chronic diastolic (congestive) heart failure; I13.0 Hypertensive heart and chronic kidney disease with heart failure and stage 1 through stage 4 chronic kidney disease, or unspecified chronic kidney disease; G47.33 Obstructive sleep apnea (adult) (pediatric); E03.9 Hypothyroidism, unspecified; I27.81 Cor pulmonale (chronic); I27.21 Secondary pulmonary arterial hypertension; E66.01 Morbid (severe) obesity due to excess calories; N18.3 Chronic kidney disease, stage 3 (moderate); Z79.899 Other long term (current) drug therapy; Z79.01 Long term (current) use of anticoagulants; Z79.82 Long term (current) use of aspirin; Z91.19 Patient's noncompliance with other medical treatment and regimen; Z68.42 Body mass index [BMI] 45.0-49.9, adult; Z71.3 Dietary counseling and surveillance; Z86.718 Personal history of other venous thrombosis and embolism; F41.9 Anxiety disorder, unspecified; F32.9 Major depressive disorder, single episode, unspecified
CPT/HCPCS: 36415; 80048; 85025; 94002; 94003; 94640; 97162; 97165; 97802; 99218; 99251; A4216; G0378; G0379; G0463

== ENCOUNTER 2018-12-08 13:12 | Inpatient (IN) | payer MEDICAID, SELFPAY ==
[2018-10-02 14:04] VITALS: BMI 47.1
[2018-12-08] VITALS (10 sets, daily range): BP systolic 127–161; BP diastolic 88–126; PULSE 79–98; RESP 16–20; TEMP 35.8–37.2; O2SAT 87–94; BMI 54.6; BMI 54.7; BMI 52.2
--- NOTE | 2018-12-08 13:36 | ED.DCSUM_ITS ---
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 Negative for: Bloody Sputum, Fever, Sweats Chest Pain: None Narrative: Patient with a history of COPD on 3 L of oxygen at home, heart problems including congestive heart failure, getting more short of breath last several days along with increased edema in her lower abdominal wall. She has chronic edema in her legs that is basically unchanged but fairly significant. States she was supposed to be on a 1500 mL water restriction that she is trying to stick to but has been drinking a bit of fluids lately. She does not lie flat to note whether or not she has orthopnea. She denies any fevers. Her cough is been nonproductive. She is on Eliquis because of a prior pulmonary embolus and states these are different symptoms. - Past Medical History (1) COPD (chronic obstructive pulmonary disease) Status: Chronic (2) Chronic diastolic CHF (congestive heart failure) Status: Chronic (3) Cor pulmonale Status: Chronic (4) Essential (primary) hypertension Status: Chronic (5) Morbid obesity with BMI of 60.0-69.9, adult Status: Chronic (6) Nicotine dependence Status: Chronic (7) Pulmonary embolism Status: Chronic Comment: remote history-on anticoagulants (8) Right bundle branch block (RBBB) Status: Chronic (9) Secondary pulmonary arterial hypertension Status: Chronic (10) MANUEL (obstructive sleep apnea) Status: Chronic Past Medical History - Allergies and Home Meds Allergies/Adverse Reactions: Allergies oxycodone [Oxycodone] Allergy (Verified 12/08/18 13:18) Rash oxycodone HCl [From Percodan] Allergy (Verified 12/08/18 13:18) Hives oxycodone terephthalate [From Percodan] Allergy (Verified 12/08/18 13:18) Hives Sulfa (Sulfonamide Antibiotics) Allergy (Verified 12/08/18 13:18) Hives cefuroxime Adverse Reaction (Verified 12/08/18 13:18) Unknown Cephalosporins Adverse Reaction (Verified 12/08/18 13:18) Vomiting meperidine HCl [From Demerol] Adverse Reaction (Verified 12/08/18 13:18) Vomiting NSAIDS (Non-Steroidal Anti-Inflamma Adverse Reaction (Verified 12/08/18 13:18) Unknown Primary Care Physician: Brian Thao MD [Primary Care Provider] - Surgical History: cholecystectomy, - - 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 Maternal Family History: Reports: - - Denies known cardiac history. Additional Family History: unable to get history, pt uncooperative Review of Systems General: Reports: Malaise - increased fatigue/sleeping. Denies: Chills, Fever, Sweats Eyes: Denies: Visual changes - bilaterally, Diplopia ENT: Denies: Rhinorrhea, Sore throat Cardiovascular: Denies: Chest pain, Palpitations, Heart racing Respiratory: Reports: Dyspnea, Cough. Denies: Sputum, Dyspnea on exertion Gastrointestinal: Denies: Abdominal pain, Nausea, Vomiting, Diarrhea, Melena, Hematochezia Genitourinary: Reports: - - chronically incontinent - unk if any change in UOP recently. Denies: Dysuria, Hematuria, Frequency Musculoskeletal: Reports: Swelling - Bilateral lower extremities and lower abdomen. Denies: Neck pain, Back pain, Extremity Pain Skin: Reports: Rash - Noticed increased redness on lower abdominal wall without pain. Denies: Abscess, Wounds Neurological: Denies: Headache, Weakness, Numbness Physical Exam Vital Signs/Narrative: Vital Signs Temp Pulse Resp BP Pulse Ox 12/08/18 13:15 98.4 F 79 20 H 161/103 H 94 Inital Vital Signs reviewed: Yes General: Well nourished, Well developed, Obese - Morbidly, No Acute Distress - Speaking in full sentences Head: Normocephalic, Atraumatic Eyes: Perrl, EOMI ENT: Moist mucous membranes, No rhinorrhea Neck: Supple, Nontender, - - limited evaluation of JVD due to obesity Cardiovascular: Regular rate, Regular rhythm, S3 Respiratory: No distress, Chest nontender, Rales - Bibasilar, Wheezing - Expiratory diffuse Abdomen: Soft, Nontender, Nondistended, Normal bowel sounds, - - Lower abdominal wall is erythematous, it blanches, and is nontender without induration, but there does appear to be significant amount of edema in the lower abdominal wall. No focal abscess. There is a plethora of redundant soft tissue limiting the entire exam. Back: Nontender, Normal Inspection Extremities: Nontender, Edema - 2+/4 bilateral lower extremity edema with dark discoloration consistent with chronic stasis, symmetric bilaterally. Negative for: Calf Tenderness Skin: Normal color, No rash, - - Erythema both lower extremities and lower abdominal wall, see above. Nontender. Neurological: Alert, Oriented x3, Cranial nerves II-XII grossly intact, Normal Strength, Normal Sensation Psychological: Normal affect, Normal Mood Diagnostic/Tx/Re-eval Impressions Chest X-Ray 12/08/18 13:42 IMPRESSION: 1. No airspace consolidation. 2. Chronic interstitial edema in the lung bases. 3. Suspect pulmonary hypertension. Cardiomegaly. Electronically Signed: Jass Garcia MD ([place]) at 15:19 EDT , Service support , 12/08/18 13:42 Chest PA and Lateral [RAD] Stat Laboratory Results 12/08/18 12/08/18 12/08/18 14:03 14:03 14:03 WBC 5.5 RBC 7.35 H Hgb 17.6 H Hct 61.1 H MCV 83.1 MCH 23.9 L MCHC 28.8 L RDW Std Deviation 64.0 H RDW Coeff of Beltran 22.5 H Plt Count 249 MPV 9.3 Immature Gran % (Auto) 0.200 Neut % (Auto) 68.1 Lymph % (Auto) 19.4 [place] % (Auto) 7.7 Eos % (Auto) 3.1 Baso % (Auto) 1.5 H Absolute Neuts (auto) 3.7 Absolute Lymphs (auto) 1.06 Nucleated RBC % 0 Anisocytosis 1+ Specimen Type Sample Site pH Bicarbonate Actual POC Total CO2 Base Excess O2 Saturation ABG pCO2 ABG pO2 Casimiro Test O2 Delivery Device Liter Flow Blood Gas Notified Whom Blood Gas Notified Time Sodium 141 Potassium 3.7 Chloride 101 Carbon Dioxide 36.0 H Anion Gap 4 L BUN 19 H Creatinine 1.14 H Estim Creat Clear Calc 52.20 Est GFR (MDRD) Af Amer 64 Est GFR (MDRD) Non-Af 53 L BUN/Creatinine Ratio 16.7 Glucose 98 Calcium 9.2 Troponin I < 0.015 B-Natriuretic Peptide 2434.9 H 12/08/18 14:11 WBC RBC Hgb Hct MCV MCH MCHC RDW Std Deviation RDW Coeff of Beltran Plt Count MPV Immature Gran % (Auto) Neut % (Auto) Lymph % (Auto) [place] % (Auto) Eos % (Auto) Baso % (Auto) Absolute Neuts (auto) Absolute Lymphs (auto) Nucleated RBC % Anisocytosis Specimen Type ART Sample Site R Radial pH 7.43 Bicarbonate Actual 39.1 H POC Total CO2 41 Base Excess 15 H O2 Saturation 93 L ABG pCO2 59.1 H ABG pO2 67 L Casimiro Test POS O2 Delivery Device Nasal Can Liter Flow 4.0 Blood Gas Notified Whom ED MD Blood Gas Notified Time 1405 Sodium Potassium Chloride Carbon Dioxide Anion Gap BUN Creatinine Estim Creat Clear Calc Est GFR (MDRD) Af Amer Est GFR (MDRD) Non-Af BUN/Creatinine Ratio Glucose Calcium Troponin I B-Natriuretic Peptide Treatment - Dyspnea: Albuterol, Atrovent, - - Bumex Repeat Evaluation: Improved - Medical Decision Making Patient is still somewhat dyspneic, hypoxic on 5 L, we are increasing that, however I do not think she needs BiPAP right now. That may become necessary. She was given Bumex and albuterol with oxygen and it is helping her, she is improved compared with her initial evaluation. Her work-up is consistent with a congestive heart failure exacerbation. She is not having chest pain and has no elevation in her troponin. Her renal function is good so continuing to diurese as an inpatient I think is reasonable, with her obesity and increased abdominal wall edema, it is understandable why she is having a hard time getting around at home now with this. ED Disposition - Plan for ED Patient: Disposition: Acute Care [facility] Diagnosis: Acute exacerbation of congestive heart failure, Acute on chronic respiratory failure with hypoxemia Referrals: Brian Thao MD [Primary Care Provider] -
--- NOTE | 2018-12-08 13:42 | EKG12_ITS ---
Test Reason : Blood Pressure : / mmHG Vent. Rate : 084 BPM Atrial Rate : 084 BPM P-R Int : 182 ms QRS Dur : 162 ms QT Int : 452 ms P-R-T Axes : 072 120 -48 degrees QTc Int : 534 ms Sinus rhythm with Premature atrial complexes Right bundle branch block Septal infarct (cited on or before 06-JAN-2018), age undetermined T wave abnormality, consider inferolateral ischemia Abnormal ECG Confirmed by JM BONILLA, BRODY ([id number]), commercial production editor MEETA BARTON ([id number]) on 12/11/2018 10:49:04 AM Referred By: Marysol Temple Confirmed By:BRODY ONEAL MD
--- NOTE | 2018-12-08 13:42 | RAD_ITS ---
STUDY: X-RAY CHEST REASON FOR EXAM: Female, 53 years old. Shortness of breath and dyspnea TECHNIQUE: AP COMPARISON: 08/27/2018 FINDINGS: Similar interstitial thickening adjacent to the randolph in the lung bases. No sizable pleural effusion or consolidating airspace process. There is moderate cardiac enlargement. Normal mediastinum and randolph. There is prominence of the pulmonary hilar arteries without peripheral pulmonary vascular congestion, suggesting pulmonary hypertension. Normal visualized aortic arch and descending thoracic aorta. There are diffuse degenerative changes of the visualized thoracic spine. Normal visualized ribs, clavicles, and shoulders. There is no demonstrated abnormality of the visualized soft tissue structures of the upper abdomen. RAD/Chest PA and Lateral IMPRESSION: 1. No airspace consolidation. 2. Chronic interstitial edema in the lung bases. 3. Suspect pulmonary hypertension. Cardiomegaly. Electronically Signed: Jass Garcia MD ([place]) at 15:19 EDT , Service support ,
[2018-12-08] MEDS: Bumetanide 1 MG/4 ML Vial 2 MG IV (14:13)
[2018-12-08] MEDS: Ipratropium/Albuterol Sulfate 3 ML AMPUL.NEB INHALATION (14:15)
[2018-12-08 14:16] LABS: Absolute Lymphocyte Count 1.06 X10^3/uL (0.83-4.51); Absolute Neutrophil Count 3.7 X10^3/uL (2.0-7.7); Basophil# 0.08 X10^3/uL; Basophil% 1.5 % (0-1); Eosinophil# 0.17 X10^3/uL; Eosinophils% 3.1 % (0-5); Hemoglobin 17.6 g/dL (12.0-15.0); Lymphocyte # 1.06 X10^3/ul (4.0); Lymphocyte % 19.4 % (19-41); Mean Corp Hgb Conc 28.8 g/dL (32-36); Mean Corpuscular Hgb 23.9 pg (27.0-32.0); Mean Corpuscular Volume 83.1 fL (81-99); Mean Platelet Vol. 9.3 fl (6.2-12.0); Monocyte# 0.42 X10^3/uL; Monocyte% 7.7 % (0-10); NRBC Flagged by Analyzer 0 % (0-5); Neutrophil # 3.71 X10^3/uL (2.7-7.7); Neutrophil % 68.1 % (47-70); POSITIVE MORPHOLOGY YES; Platelet Count 249 K/mm3 (150-450); RBC Distribution Width CV 22.5 % (11.6-14.6); Red Blood Count 7.35 M/mm3 (4.2-5.4); White Blood Count 5.5 K/mm3 (4.4-11.0)
[2018-12-08 14:16] LABS: Allen Test POS; Base Excess 15 mmol/L (-2 to +2); Bicarbonate 39.1 mmol/L (22-26); Blood Gas Specimen Type ART; O2 Delivery Device Nasal Can; PO2 67 mmHG (75-100); SITE R Radial; SO2 93 % (95-99); Time Given 1405; Total Carbon Dioxide 41 mmol/L; pCO2 59.1 mmHg (35-45); pH 7.43 (7.35-7.45)
[2018-12-08 14:38] LABS: Anion Gap 4 (5-15); BUN 19 mg/dL (7-18); BUN/Creat Ratio 16.7 RATIO (10-20); Calcium,Total 9.2 mg/dL (8.5-10.1); Chloride 101 mmol/L (98-107); Creatinine, Serum 1.14 mg/dL (0.55-1.02); EST Glomerular Filtration Rate 53 mL/min (>60); Est Glom Filt Rate - Afr Amer 64 mL/min (>60); Glucose 98 mg/dL (74-106); Potassium 3.7 mmol/L (3.5-5.1); Sodium Level 141 mmol/L (136-145)
[2018-12-08 14:40] LABS: Differential Indicated SCAN CRITERIA MET; Hematocrit 61.1 % (37-47)
[2018-12-08 14:44] LABS: Anisocytosis 1+
--- NOTE | 2018-12-08 15:31 | HP.PCM_ITS ---
History of Present Illness Date of Admission: 12/08/18 Chief Complaint: SHORTNESS OF BREATH The patient is a 53 year old F with a PMH as listed. She was admitted via the ED on 12/08/18 with a complaint of shortness of breath over the last 2 days. She had associated orthopnea and PND, and admitted to mild lower extremity swelling. She denied any chest pain, palpitations, dizziness, or vomiting. She claims she has been compliant with her Bumex. Review of systems otherwise negative. She is on baseline 4 L of oxygen at home and says she has been using the same, though she was now on 6 L in the ED. she does continue to smoke. she came into the ED where vitals were essentially stable. Chemistry showed creatinine of 1.14 and BNP was 2434.9. Initial troponin was negative. CBC showed hemoglobin of 17.6 platelets of 249. EKG showed no acute ST changes. Chest x-ray showed no airspace consolidation and chronic interstitial edema in the lung bases and suspect pulmonary hypertension as well as cardiomegaly. She has been admitted to be managed for acute on chronic exacerbation of heart failure with preserved ejection fraction. [] Past Medical History Past Medical History (Chronic Problems): Chronic Problems (Last Reviewed 10/02/18 @ 14:19 by Nova Lowry NP-Jas) Acute on chronic respiratory failure with hypoxemia (Chronic) COPD (chronic obstructive pulmonary disease) (Chronic) MANUEL (obstructive sleep apnea) (Chronic) Cor pulmonale (Chronic) Respiratory failure with hypoxia and hypercapnia (Chronic) Chronic diastolic CHF (congestive heart failure) (Chronic) History of COPD (Chronic) Acute exacerbation of congestive heart failure (Chronic) Pulmonary embolism (Chronic) remote history-on anticoagulants Right bundle branch block (RBBB) (Chronic) Secondary pulmonary arterial hypertension (Chronic) Nicotine dependence (Chronic) Essential (primary) hypertension (Chronic) Morbid obesity with BMI of 60.0-69.9, adult (Chronic) Medical History: Medical History (Last Reviewed 10/02/18 @ 14:19 by Nova Lowry NP-C) Pulmonary embolism (Chronic) I26.99 remote history-on anticoagulants Right bundle branch block (RBBB) (Chronic) I45.10 Secondary pulmonary arterial hypertension (Chronic) I27.21 Nicotine dependence (Chronic) F17.200 Essential (primary) hypertension (Chronic) I10 Morbid obesity with BMI of 60.0-69.9, adult (Chronic) E66.01, Z68.44 COPD (chronic obstructive pulmonary disease) J44.9 Chronic kidney disease N18.9 Hypothyroidism E03.9 Obstructive sleep apnea G47.33 Transaminitis R74.0 Sleep apnea syndrome (Inactive) G47.30 Allergies oxycodone [Oxycodone] Allergy (Verified 12/08/18 13:18) Rash oxycodone HCl [From Percodan] Allergy (Verified 12/08/18 13:18) Hives oxycodone terephthalate [From Percodan] Allergy (Verified 12/08/18 13:18) Hives Sulfa (Sulfonamide Antibiotics) Allergy (Verified 12/08/18 13:18) Hives cefuroxime Adverse Reaction (Verified 12/08/18 13:18) Unknown Cephalosporins Adverse Reaction (Verified 12/08/18 13:18) Vomiting meperidine HCl [From Demerol] Adverse Reaction (Verified 12/08/18 13:18) Vomiting NSAIDS (Non-Steroidal Anti-Inflamma Adverse Reaction (Verified 12/08/18 13:18) Unknown Home Medications: Ambulatory Orders Medication Instructions Recorded Cholecalciferol (Vitamin D3) 50,000 unit PO TH 11/28/16 [Vitamin D3] Folic Acid 1 mg PO DAILY 11/28/16 Gabapentin [Neurontin] 300 mg PO 4X/DAY 11/28/16 Levothyroxine [Synthroid] 25 mcg PO DAILY 11/28/16 Oxybutynin [Ditropan] 5 mg PO DAILY 11/28/16 Venlafaxine HCl [Venlafaxine HCl 150 mg PO DAILY 11/28/16 ER] Hydroxyzine HCl 10 mg PO TID 06/13/17 Atorvastatin Calcium [Lipitor] 40 mg PO QHS 01/07/18 Melatonin 3 mg PO QHS #30 tab 03/19/18 Apixaban [Eliquis] 5 mg PO 0800,199903/21/18 Aspirin [Aspirin, Baby] 81 mg PO DAILY 03/21/18 Buspirone HCl 7.5 mg PO BID 03/21/18 Losartan Potassium 25 mg PO BID 03/21/18 Metoprolol Tartrate [Lopressor 25 mg PO BID 03/21/18 (beta vineet)] Allopurinol 100 mg PO DAILY 08/20/18 Famotidine 20 mg PO QHS PRN 08/20/18 Acetaminophen [Tylenol Tablet] 650 mg PO Q6H PRN PRN tab 08/29/18 Albuterol Aerosols [Ventolin 2.5 mg INHALATION Q2H PRN PRN 08/29/18 Aerosols] vial.neb. Senna/Docusate Sodium [Senokot-S] 2 tab PO BID PRN PRN tab 08/29/18 Sodium Chloride 0.65% [[place] Nasal 1 spray NASAL BID PRN PRN 08/29/18 [place]] spray.btl Acetazolamide 250 mg PO DAILY 08/31/18 Bumetanide [Bumex] 2 mg PO BID 08/31/18 Ipratropium/Albuterol Sulfate 3 ml INHALATION Q4HWA.RT 08/31/18 [Duoneb] Magnesium Oxide [Mag-Ox 400] 400 mg PO DAILYCM 08/31/18 Multivitamin with Iron [Tab-A-Jessica 1 ea PO DAILY 08/31/18 with Iron] Nystatin Powder [Mycostatin Powder] 1 applic TOPICAL TID 08/31/18 Potassium Chloride [K-Dur] 20 meq PO BIDCM 08/31/18 Prednisone 30 mg PO DAILY 08/31/18 Surgical History: Surgical History (Last Reviewed 10/02/18 @ 14:19 by Nova Lowry NP-C) History of left heart catheterization Onset Date: 06/16/17 Z98.890 Hx of cholecystectomy Z90.49 Surgical History: cholecystectomy, - - 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 Maternal History Items: - - Denies known cardiac history. Review of Systems Constitutional: Denies: Chills, Fever, Malaise, Weakness, Weight Change Eyes: Denies: Blurred vision HEENT: Denies: Head Aches, Sinus Congestion, Sinus Drainage Cardiovascular: Reports: Orthopnea, Paroxysmal Noc. Dyspnea. Denies: Chest Doron n, Palpitations Respiratory: Reports: Shortness of Breath, Shortness of breath at rest, Shortness of breath upon exertion. Denies: Cough, Sputum production Gastrointestinal: Denies: Abdominal Pain, Nausea, Vomiting Genitourinary: Denies: Dysuria Musculoskeletal: Denies: Joint Pain, Joint Tenderness Skin: Denies: Rash, Wounds Neurological: Denies: Numbness, Tingling, Focal weakness Psychiatric: Denies: Anxiety, Depression, Homicidal Ideations, Suicidal Ideations Hematologic/ Lymphatic: Denies: Easy Bruising, Easy Bleeding VTE Information - Inpt Only VTE Present on Admission: No VTE Pharm Prophylaxis ordered?: Yes - Physical Exam Vitals/I&O's: Vital Signs Temp Pulse Resp BP Pulse Ox 98.4 F 95 18 150/126 H 90 12/08/18 13:15 12/08/18 15:27 12/08/18 15:27 12/08/18 15:27 12/08/18 15:27 Oxygen Flow Rate (L/min) 6 Oxygen Delivery Method Nasal Cannula Weight: 338 lb 12.48 oz Body Mass Index (BMI) 54.6 General: Alert, Oriented x3, Cooperative, Lethargic, - - super morbid obesity HEENT: Atraumatic, PERRLA, EOMI, Normocephalic Oral: Dry Mucosa Neck: Supple, No JVD, Negative Carotid Bruits Lungs: - - decreased breath sounds bibasally, no wheezes or crackles. on 6L of oxygen Cardiovascular: Regular rate, Regular Rhythm, Normal S1, Normal S2, No murmurs Abdomen: Bowel Sounds Present, Soft, Non Tender Extremities: Capillary Refill Less than 3 Seconds, - - mild 1+ bipedal pitting edema Skin: No rashes, No breakdown Musculoskeletal: No Tenderness to Palpation of Joints or Extremities Neurological: Cranial nerves II-XII grossly intact, Neuro grossly intact, Motor Exam 5/5 strength throughout Psych/Mental Status: Normal Affect, Appropriate, Alert and oriented to time, place, person, mood and affect Laboratory Results 12/08/18 14:03: WBC 5.5, RBC 7.35 H, Hgb 17.6 H, Hct 61.1 H, MCV 83.1, MCH 23.9 L, MCHC 28.8 L, RDW Std Deviation 64.0 H, RDW Coeff of Beltran 22.5 H, Plt Count 249, MPV 9.3, Immature Gran % (Auto) 0.200, Neut % (Auto) 68.1, Lymph % (Auto) 19.4, [place] % (Auto) 7.7, Eos % (Auto) 3.1, Baso % (Auto) 1.5 H, Absolute Neuts (auto) 3.7, Absolute Lymphs (auto) 1.06, Nucleated RBC % 0, Anisocytosis 1+ 12/08/18 14:03: Sodium 141, Potassium 3.7, Chloride 101, Carbon Dioxide 36.0 H, Anion Gap 4 L, BUN 19 H, Creatinine 1.14 H, Estim Creat Clear Calc 52.20, Est GFR (MDRD) Af Amer 64, Est GFR (MDRD) Non-Af 53 L, BUN/Creatinine Ratio 16.7, Glucose 98, Calcium 9.2, Troponin I < 0.015 12/08/18 14:03: B-Natriuretic Peptide 2434.9 H 12/08/18 14:11: Specimen Type ART, Sample Site R Radial, pH 7.43, Bicarbonate Actual 39.1 H, POC Total CO2 41, Base Excess 15 H, O2 Saturation 93 L, ABG pCO2 59.1 H, ABG pO2 67 L, Casimiro Test POS, O2 Delivery Device Nasal Can, Liter Flow 4.0, Blood Gas Notified Whom ED MD, Blood Gas Notified Time 1405 Diagnostic Data Chest X-Ray 12/08/18 13:42 IMPRESSION: 1. No airspace consolidation. 2. Chronic interstitial edema in the lung bases. 3. Suspect pulmonary hypertension. Cardiomegaly. Electronically Signed: Jass Garcia MD ([place]) at 15:19 EDT , Service support , Assessment/Plan All Active Problems (Last Reviewed 10/02/18 @ 14:19 by Nova Lowry NP-C) Bronchospasm (Resolved) 53-year-old female admitted with complaint of shortness of breath. 1. Acute on chronic exacerbation of HFpEF * BNp is ~ 2343 * ABG done showed pH of 7.43 with bicarb of 39, pCO2 of 59 and pO2 of 67 * CXR showed evidence of chronic interstitial edema in the lung bases and suspected pulmonary hypertension as well as cardiomegaly * 2D echo in 2018 showed EF of 75%, with stage 1 diastolic dysfunction, RVSp of 56mmhg, severely dilated right ventricle and severe global RV systolic dysfunction * admit To PCU with telemetry. * strict intake output chart; fluid restriction to 1500 cc daily\ * Started on IV Bumex drip * Repeat 2D echo * Continue losartan and metoprolol . 2. COPD: * Shortness of breath likely due to heart failure exacerbation is under 1. * Breathing treatments as needed. * I do not think the patient has exacerbation of COPD. 3. Obstructive sleep: On CPAP. 4. Acute on chronic hypoxic respiratory failure due to heart failure * Now on 6 L of oxygen. Baseline is usually 4. ABG done as under 1. * Titrate oxygen to maintain saturation above 90%. BiPAP as needed. * Breathing treatment with DuoNeb's * 5. CKD 3: stable. Cr is 1.34 todfay 6.PUlmonary hypertension: due to heart failure and COPD. On Eliquis. RVSp in 2018 per echo was 56mmhg 7. Hypothyroidism: On Synthroid 8. Hypertension: On losartan and metoprolol. 9. Super morbid obesity: BMI is over 54. This complicates acute care, management and prognosis. DVT prophylaxis: On Eliquis CODE STATUS: Full code * Patient counseled extensively about different types of CODE STATUS including full code, DNR CCA and DNR CCA. Patient elects to be full code. Total fncx-po-molw time 17 minutes. Code Visit Inpatient E&M: 75133 Init Hosp L3 Procedures: 14866 Advncd Care Plan 30 Min
--- NOTE | 2018-12-08 15:32 | NURSING ---
PCU CHF EXAC, HYPOXIC RESP FAILURE, COPD [facility]
[2018-12-08] MEDS: Acetaminophen 500 MG Tablet 1000 MG PO (15:42)
[2018-12-08] MEDS: Bumetanide 1 MG/4 ML Vial 4 MG IV (18:34)
[2018-12-08] MEDS: hydrOXYzine PAM 25 MG Capsule 50 MG PO (21:02)
[2018-12-08] MEDS: Acetaminophen 325 MG Tablet 650 MG PO (21:44)
--- NOTE | 2018-12-08 23:09 | CPS ---
attempted 3 times to apply bipap to pt for night time use, pt refused
[2018-12-09] VITALS (12 sets, daily range): BP systolic 107–153; BP diastolic 56–95; PULSE 89–107; RESP 18–20; TEMP 36.2–36.7; O2SAT 92–98
--- NOTE | 2018-12-09 05:55 | ECHOCS_ITS ---
Reason For Study: CHF Procedure This was a 2D Doppler, Color Flow transthoracic echocardiogram. The study was technically difficult. Due to obesity and unable to lie in left lateral decubitus position for imaging. Contrast injection was performed. Exam performed portable in patient room. Left Ventricle Normal LV size. Left ventricular systolic function is normal. The estimated ejection fraction is 55 %. Stage 1 diastolic dysfunction. No regional wall motion abnormalities noted. Right Ventricle Moderately dilated right ventricle. Mild global right ventricular systolic dysfunction. Atria The left atrium is moderately enlarged. The right atrium is moderately enlarged. Mitral Valve Normal mitral valve. Tricuspid Valve Normal tricuspid valve. Mild (1+) tricuspid valve insufficiency. Pulmonary artery systolic pressure is 35 mmHg. Aortic Valve The aortic valve is not well visualized. Pulmonic Valve Normal pulmonic valve. Great Vessels Normal aortic root. The pulmonary artery is normal size. Normal inferior vena cava. Pericardium/Pleural No pericardial effusion. Medication Diluted definity 4.0ml given slow IV push to enhance endocardial definition. MMode/2D Measurements & Calculations LVIDd: 4.8 cm IVSd: 1.0 cm Ao root diam: 3.1 cm LVIDs: 2.8 cm LVPWd: 1.2 cm RVDd: 5.1 cm FS: 41.4 % LAV(MOD-sp4): 91.1 ml LA A4 area: 28.2 cm2 LA dimension(2D): 4.3 cm RA A4 area: 25.5 cm2 Doppler Measurements & Calculations MV E max cruz: 63.4 cm/sec Lat Peak E' Cruz: 5.5 cm/sec Med Peak E' Cruz: 3.9 cm/sec MV A max cruz: 110.4 cm/sec E/E' lat: 11.6 E/E' med: 16.4 MV E/A: 0.57 Ao V2 max: 99.4 cm/sec LV V1 max: 70.6 cm/sec PA V2 max: 94.3 cm/sec Ao max P.0 mmHg LV V1 max P.0 mmHg TR max cruz: 271.2 cm/sec TR max P.0 mmHg Interpretation Summary Normal LV size. Left ventricular systolic function is normal. The estimated ejection fraction is 55 %. Stage 1 diastolic dysfunction. Mild (1+) tricuspid valve insufficiency. Pulmonary artery systolic pressure is 35 mmHg. Contrast injection was performed. Ordering Physician: Marysol Temple Referring Physician: Brian Thao Performed By: Lory Noriega RDCS, RVT
[2018-12-09 07:18] LABS: Absolute Lymphocyte Count 0.75 X10^3/uL (0.83-4.51); Absolute Neutrophil Count 3.4 X10^3/uL (2.0-7.7); Basophil# 0.02 X10^3/uL; Basophil% 0.4 % (0-1); Eosinophil# 0.01 X10^3/uL; Eosinophils% 0.2 % (0-5); Hemoglobin 17.3 g/dL (12.0-15.0); Lymphocyte # 0.75 X10^3/ul (4.0); Lymphocyte % 15.5 % (19-41); Mean Corp Hgb Conc 28.5 g/dL (32-36); Mean Corpuscular Hgb 23.7 pg (27.0-32.0); Mean Corpuscular Volume 82.9 fL (81-99); Monocyte# 0.68 X10^3/uL; NRBC Flagged by Analyzer 0 % (0-5); Neutrophil # 3.35 X10^3/uL (2.7-7.7); Neutrophil % 69.3 % (47-70); POSITIVE MORPHOLOGY YES; Platelet Count 237 K/mm3 (150-450); RBC Distribution Width CV 22.5 % (11.6-14.6); Red Blood Count 7.31 M/mm3 (4.2-5.4); White Blood Count 4.8 K/mm3 (4.4-11.0)
[2018-12-09 07:24] LABS: Differential Indicated SCAN CRITERIA MET; Hematocrit 60.6 % (37-47)
[2018-12-09 07:38] LABS: Anion Gap 6 (5-15); BUN 20 mg/dL (7-18); BUN/Creat Ratio 14.7 RATIO (10-20); Calcium,Total 8.5 mg/dL (8.5-10.1); Chloride 101 mmol/L (98-107); Creatinine, Serum 1.36 mg/dL (0.55-1.02); EST Glomerular Filtration Rate 43 mL/min (>60); Est Glom Filt Rate - Afr Amer 52 mL/min (>60); Estimated Creatinine Clearance 43.75 ml/min; Glucose 114 mg/dL (74-106); Potassium 3.9 mmol/L (3.5-5.1); Sodium Level 142 mmol/L (136-145)
[2018-12-09 08:02] LABS: Anisocytosis 2+; Hypochromasia RARE; Macrocytosis RARE; Platelet Estimate ADEQUATE (ADEQ); Polychromasia RARE
--- NOTE | 2018-12-09 08:07 | PCM.PROGNOTE ---
Subjective: The patient is a 53-year-old female with a past medical history of super obesity, chronic respiratory failure with hypoxemia and hypercapnia, COPD, obstructive sleep apnea, cor pulmonale, chronic diastolic congestive heart failure, pulmonary hypertension, ongoing tobacco dependence and HTN who presented to the ED at [facility] on 11/08/2018 complaining of shortness of breath and lower extremity swelling. BNP was elevated at 2435. Hemoglobin is 17.6. EKG showed no acute ST or T wave changes. Chest x-ray showed no infiltrates but is consistent with acute pulmonary edema. She was admitted to the hospital with acute on chronic respiratory failure and acute exacerbation of diastolic heart failure preserved ejection fraction. Afebrile since admission Blood pressures are not adequately controlled and have ranged from 127/88-160 1/103. She has maintained an oxygen saturation of 94% on a 6 L nasal cannula. Her baseline on a PN by Nova Espinoza Fluid balance on 12/08/2018 was -2410. All lab was personally reviewed. Hemoglobin remains elevated at 17.3. Blood cell count and platelets are within normal limits. BMP shows an elevated serum bicarb at 35. The BUN is 20 and the creatinine has increased from 1.14 at admission to 1.36 today. The baseline creatinine in 2019 has ranged from a low of 1.08 to a high of 1.62. Serial cardiac enzymes were negative. The estimated ejection fraction is 75 %. Stage 1 diastolic dysfunction. Moderate concentric left ventricular hypertrophy. Severely dilated right ventricle. The left atrium is moderately enlarged. The right atrium is mildly enlarged. Mild (1+) tricuspid valve insufficiency. Right ventricular systolic pressure estimated to be 56 mmHg, but may be underestimated. D shaped septum in diastole. Right ventricular systolic pressure estimated to be 56 mmHg. Compared to echo report dated 02/17/2017, no appreciable changes noted. RVSP has gone from 73 to 56 mm Hg, but may be underestimated on today's study. the pt was sleeping without BIPAP when I entered the room. She aroused with calling her name loudly and shaking her......kept nodding off to sleep when I was talking with her. She keeps pulling out the purewick catheter and urinating in the bed. Verbally abusive to the nurses aides today. - Physical Exam Vitals/I&O's: Vital Signs Temp Pulse Resp BP Pulse Ox 97.1 F L 94 20 H 146/95 H 94 12/09/18 02:38 12/09/18 07:00 12/09/18 02:38 12/09/18 02:38 12/09/18 02:38 Oxygen Flow Rate (L/min) 6 Oxygen Delivery Method Nasal Cannula Weight: 323 lb 6.69 oz Body Mass Index (BMI) 52.2 Intake and Output for Last 24 Hours 12/07/18 12/08/18 12/09/18 23:59 23:59 23:59 Intake Total 190 / 190 100 / 100 Output Total 2600 / 2600 600 / 600 Balance -2410 / -2410 -500 / -500 General: No apparent distress, Lethargic HEENT: Atraumatic, PERRLA Oral: Dry Mucosa Neck: Trachea Midline Lungs: No rhonchi, No wheeze, No rales, Diminished Cardiovascular: Regular rate, Regular Rhythm, Normal S1, Normal S2, No rub noted, No Gallop, - - distant heart sounds due to body habitus/super obese Abdomen: Bowel Sounds Present, Soft, Non-Distended, Obese Extremities: No edema Skin: No rashes Laboratory Results 12/08/18 14:03: WBC 5.5, RBC 7.35 H, Hgb 17.6 H, Hct 61.1 H, MCV 83.1, MCH 23.9 L, MCHC 28.8 L, RDW Std Deviation 64.0 H, RDW Coeff of Beltran 22.5 H, Plt Count 249, MPV 9.3, Immature Gran % (Auto) 0.200, Neut % (Auto) 68.1, Lymph % (Auto) 19.4, [place] % (Auto) 7.7, Eos % (Auto) 3.1, Baso % (Auto) 1.5 H, Absolute Neuts (auto) 3.7, Absolute Lymphs (auto) 1.06, Nucleated RBC % 0, Anisocytosis 1+ 12/08/18 14:03: Sodium 141, Potassium 3.7, Chloride 101, Carbon Dioxide 36.0 H, Anion Gap 4 L, BUN 19 H, Creatinine 1.14 H, Estim Creat Clear Calc 52.20, Est GFR (MDRD) Af Amer 64, Est GFR (MDRD) Non-Af 53 L, BUN/Creatinine Ratio 16.7, Glucose 98, Calcium 9.2, Troponin I < 0.015 12/08/18 14:03: B-Natriuretic Peptide 2434.9 H 12/08/18 14:11: Specimen Type ART, Sample Site R Radial, pH 7.43, Bicarbonate Actual 39.1 H, POC Total CO2 41, Base Excess 15 H, O2 Saturation 93 L, ABG pCO2 59.1 H, ABG pO2 67 L, Casimiro Test POS, O2 Delivery Device Nasal Can, Liter Flow 4.0, Blood Gas Notified Whom ED MD, Blood Gas Notified Time 1405 12/08/18 18:08: Troponin I < 0.015 12/08/18 20:52: Troponin I < 0.015 12/09/18 06:32: WBC 4.8, RBC 7.31 H, Hgb 17.3 H, Hct 60.6 H, MCV 82.9, MCH 23.7 L, MCHC 28.5 L, RDW Std Deviation 64.0 H, RDW Coeff of Beltran 22.5 H, Plt Count 237, MPV 9.0, Immature Gran % (Auto) 0.600, Neut % (Auto) 69.3, Lymph % (Auto) 15.5 L, [place] % (Auto) 14.0 H, Eos % (Auto) 0.2, Baso % (Auto) 0.4, Absolute Neuts (auto) 3.4, Absolute Lymphs (auto) 0.75 L, Nucleated RBC % 0, Platelet Estimate ADEQUATE, Polychromasia RARE, Hypochromasia RARE, Anisocytosis 2+, Macrocytosis RARE 12/09/18 06:32: Sodium 142, Potassium 3.9, Chloride 101, Carbon Dioxide 35.0 H, Anion Gap 6, BUN 20 H, Creatinine 1.36 H, Estim Creat Clear Calc 43.75, Est GFR (MDRD) Af Amer 52 L, Est GFR (MDRD) Non-Af 43 L, BUN/Creatinine Ratio 14.7, Glucose 114 H, Calcium 8.5 Current Medications Acetaminophen (Tylenol) 650 mg PO Q6H PRN PRN PRN Reason: Pain or Fever Last Admin: 12/08/18 21:44 Dose: 650 mg Documented by: Bumetanide (Bumex) 4 mg IV BID@1000,1800 MOISES Last Admin: 12/08/18 18:34 Dose: 4 mg Documented by: Dextrose (D50w Syringe) 0 gm IV X1 PRN; Protocol PRN Reason: Hypoglycemia Glucagon () 1 mg IM .X1 PRN PRN Reason: Hypoglycemia Hydroxyzine Pamoate (Vistaril Pamoate Capsule) 50 mg PO Q6H PRN PRN PRN Reason: Anxiety/itching Last Admin: 12/08/18 21:02 Dose: 50 mg Documented by: Medical Necessity - Tobacco Use Smoking Status: Current every day smoker Tobacco Use: Cigarettes Assessment/Plan All Active Problems (Last Reviewed 10/02/18 @ 14:19 by Nova Lowry, NEWS VIDEOTAPE EDITOR-C) Bronchospasm (Resolved) Impressions 1. Acute on chronic diastolic CHF - more likely than not related to hypoxia due to super morbid obesity with pulmonary HTN and ongoing nicotine dependence in a pt who is not currently being treated for MANUEL and is not consistent with follow up. She has been told on prior admissions that she needs to follow up with pulmonary to arrange PFT's and a sleep study. She saw Nova Zaidi once on 10/02/18 but, there is no plan for tx on that note and no co-signor. Continue Bumex infusion and fluid restriction. Recheck lab in the a.m. I&O's are not accurate because she keeps removing the Purewick catheter per nursing. 2. Chronic respiratory failure with hypoxia and hypercapnia. Per Nova Zaidi's note on 10/02/2018 the patient chronically wears 6 L/min at home and she is currently 98% on 6 L. She is at her baseline......with the hypercapnea there is no need for her to be at 98% and will titrate the oxygen to maintain the O2 sat between 89-93%. 3. Moderate to severe pulmonary hypertension....suspect the RV systolic Pressure is underestimated on the most recent ECHO....it has been higher in the past and she has neither lost weight or had MANUEL treated. Likely would need a R heart cath to accurately determine the PA pressure. 4. MANUEL - not being treated 5. super obesity -her weight at discharge in August 2018 was 293 and at admission this time was 338 pounds and 12 ounces. Gaining weight 6. ongoing nicotine dependence 7. drug seeking behavior. Lethargic and very difficult to arouse but, c/o pain not controlled with tylenol. 8. COPD/cor pulmonale/remote history of pulmonary embolism/chronic anticoagulation with Eliquis/ hypertension/super morbid obesity - complicate care, management and prognosis. Her prognosis for a long life is severely compromised by non-compliance start the Gabapentin at 100 mg BID and 300 mg at HS - it must be weaned off and I would wean this off because she is non-compliant with F/U with pulmonary and she is not on PAP therapy and sedating medications are contraindicated. restart Effexor DC the Hydroxyzine due to its sedating properties Restart apixaban No narcotics NO sedating medications Recheck BMP, magnesium and phosphorus in the a.m. Titrate oxygen to keep the oxygen saturation between 89 and 93% She is getting no RX's for narcotics as an OP - only Gabapentin. Code Visit Inpatient E&M: 77026 Subs Hosp L2
[2018-12-09] MEDS: Bumetanide 1 MG/4 ML Vial 4 MG IV ×2 (10:55→17:53)
[2018-12-09] MEDS: Acetaminophen 325 MG Tablet 650 MG PO (16:19)
[2018-12-09] MEDS: Ipratropium/Albuterol Sulfate 3 ML AMPUL.NEB INHALATION (18:51)
[2018-12-09] MEDS: Metoprolol Tartrate 25 MG Tablet PO (20:02)
[2018-12-09] MEDS: Venlafaxine XR 150 MG Capsule PO (20:02)
[2018-12-09] MEDS: Atorvastatin Calcium 40 MG Tablet PO (20:03)
[2018-12-09] MEDS: APIXABAN 5 MG TABLET PO (20:07)
--- NOTE | 2018-12-09 20:55 | NURSING ---
Pt's sister called nurses station at this time, stating she just talked to pt and pt was very tearful and complaining about not getting her medication. Explained to pt's sister that pt did get her medication early as she requested and pt is requesting medications that are not ordered for her. Explained to sister that it was explained to that pt why she is not getting sedative medications with questionable value. Pt's sister voices understanding of same and states she will call sister back to attempt to calm her down.
--- NOTE | 2018-12-09 23:58 | CPS ---
Pt. refused BiPAP, understands benefits of wearing machine. Pt. will let RN know to inform STERILE PROC TECH if she would like to go on tonight.
[2018-12-10] VITALS (9 sets, daily range): BP systolic 150–163; BP diastolic 87–92; PULSE 80–91; RESP 16–20; TEMP 36.6–36.7; O2SAT 92–96
[2018-12-10] MEDS: Famotidine 20 MG Tablet PO (03:33)
[2018-12-10] MEDS: Levothyroxine 25 MCG TABLET PO (05:15)
[2018-12-10 06:17] LABS: Anion Gap 4 (5-15); BUN 22 mg/dL (7-18); BUN/Creat Ratio 17.3 RATIO (10-20); Calcium,Total 8.7 mg/dL (8.5-10.1); Chloride 99 mmol/L (98-107); Creatinine, Serum 1.27 mg/dL (0.55-1.02); EST Glomerular Filtration Rate 46 mL/min (>60); Est Glom Filt Rate - Afr Amer 56 mL/min (>60); Estimated Creatinine Clearance 46.86 ml/min; Glucose 76 mg/dL (74-106); Magnesium 1.6 mg/dL (1.6-2.6); Phosphorus 3.1 mg/dL (2.5-4.9); Potassium 3.4 mmol/L (3.5-5.1); Sodium Level 143 mmol/L (136-145)
[2018-12-10] MEDS: Ipratropium/Albuterol Sulfate 3 ML AMPUL.NEB INHALATION ×2 (06:53→13:47)
[2018-12-10] MEDS: Folic Acid 1 MG Tablet PO (09:31)
[2018-12-10] MEDS: Venlafaxine XR 150 MG Capsule PO (09:31)
[2018-12-10] MEDS: Aspirin 81 MG TAB.CHEW PO (09:31)
[2018-12-10] MEDS: Metoprolol Tartrate 25 MG Tablet PO (09:32)
[2018-12-10] MEDS: AcetaZOLAMIDE 250 MG Tablet PO (09:32)
[2018-12-10] MEDS: Bumetanide 1 MG/4 ML Vial 4 MG IV (09:33)
[2018-12-10] MEDS: APIXABAN 5 MG TABLET PO (09:33)
[2018-12-10] MEDS: Gabapentin 100 MG Capsule PO (09:38)
--- NOTE | 2018-12-10 11:31 | CASEMGMT ---
This RN CM to bedside to complete CM assessment and nursing is at bedside with pt at this time. Will attempt again later. SStraghavendra RN CM
--- NOTE | 2018-12-10 11:45 | CASEMGMT ---
MARIEL LEÓN assessment: Face to Face with patient for initial transition planning/care coordination assessment. RN MAU introduced self and role at [facility], pt voices understanding and consents to assessment at this time. Pt is sitting up on side of bed in no distress at this time. Pt is A/Ox4 at this time and answers all questions appropriately at this time. Care providers, pharmacy, and demographics verified/updated at this time. PCP: [facility]: micheline Pearce-pt states has upcoming appt on 12/19/18, with PFT appt on 12/14/18 Preferred Pharmacy: [facility] but pt states would like meds sent to [facility] retail at discharge this time. Insurance: [facility] Prescription Benefit: [facility] Living Will/HPOA: Pt states does not have LW/HPOA and declines AD info at this time. Pt states that her sister is financial POA. LNOK: Randall Pierce, sister; Aruna Fuller, daughter; Dhara Cramer, daughter Living Arrangements: Pt states lives alone in 1 story apt with 1 step in and states no concerns at home at this time. Pt states that her sister does assist her into shower and states that she is working on getting a walk-in tub/shower. Transportation: Pt states that her sister drives or she uses [facility] transportation and states transportation concerns at this time. DME/HHC: Pt states has the following DME: lift chair, grab bars, shower chair, hand held shower, walker, w/c, medical alert button, nebulizer, and 6 liters home oxygen thru [employer]. Pt states no need for any further DME at this time. Pt states has waiver program and they provided lift chair to pt and she states that they have been working on getting her aides since April without success. Pt stresses need for aides as her sister is helping her with some of this now. Pt states has had VNA set up in the past and does not feel the need for it now at this time. Pt states has been to [facility] in the past and states 'I am never going back there.' Pt states no concerns with going home at time of discharge. Pt states is disabled. Pt states still smokes 1/2pack/day and does not drink ETOH. Pt states no further questions/concerns at this time. CM to follow for any further discharge planning/needs. Advised pt to ask for CM if any further questions/concerns/needs arise, voices understanding. At end of assessment, pt suddenly states I am going to throw up, I need cold water right away.' This RN CM offered emesis bag and pt states 'I just need water.' Emesis bag provided to pt anyway and Ramila PERIANESTHESIA MANAGER aware of pt need for water as pt is on fluid restriction. Lul RN also aware, voices understanding. Pt Goal: Home Plan: Home [place] MARIEL LEÓN
--- NOTE | 2018-12-10 12:23 | DCINST_ITS ---
- Discharge Diagnoses Current Active Problems: Current Active and Chronic Problems (Last Reviewed 10/02/18 @ 14:19 by CHERYL Tang) Acute on chronic respiratory failure with hypoxemia (Chronic) Acute exacerbation of congestive heart failure (Chronic) You will use the following diet at home:: Cardiac, Fluid restricted (specify 2000 mls, 1500 mls) - 1500 ML DAILY. Your food should be the consistency of: Regular Discharge Activity: Return to Normal Activity Weight Bearing Status: Weight bearing as tolerated Call your doctor if you observe: Fever of 101 or Higher, Shortness of breath, Dizziness, Fainting spells, Chest pain, Increased palpitations (irregular heartbeat), Uncontrolled pain Allergies/Adverse Reactions: Allergies oxycodone [Oxycodone] Allergy (Verified 12/08/18 13:18) Rash oxycodone HCl [From Percodan] Allergy (Verified 12/08/18 13:18) Hives oxycodone terephthalate [From Percodan] Allergy (Verified 12/08/18 13:18) Hives Sulfa (Sulfonamide Antibiotics) Allergy (Verified 12/08/18 13:18) Hives cefuroxime Adverse Reaction (Verified 12/08/18 13:18) Unknown Cephalosporins Adverse Reaction (Verified 12/08/18 13:18) Vomiting meperidine HCl [From Demerol] Adverse Reaction (Verified 12/08/18 13:18) Vomiting NSAIDS (Non-Steroidal Anti-Inflamma Adverse Reaction (Verified 12/08/18 13:18) Unknown Medications to take at Discharge Cholecalciferol (Vitamin D3) [Vitamin D3] 50,000 unit PO TH 11/28/16 Folic Acid 1 mg PO DAILY 11/28/16 Gabapentin [Neurontin] 300 mg PO 4X/DAY 11/28/16 Levothyroxine [Synthroid] 25 mcg PO DAILY 11/28/16 Oxybutynin [Ditropan] 5 mg PO DAILY 11/28/16 Venlafaxine HCl [Venlafaxine HCl ER] 150 mg PO DAILY 11/28/16 Hydroxyzine HCl 10 mg PO TID 06/13/17 Atorvastatin Calcium [Lipitor] 40 mg PO QHS 01/07/18 Melatonin 3 mg PO QHS #30 tab 03/19/18 Apixaban [Eliquis] 5 mg PO 0800,199903/21/18 Aspirin [Aspirin, Baby] 81 mg PO DAILY 03/21/18 Buspirone HCl 7.5 mg PO BID 03/21/18 Losartan Potassium 25 mg PO DAILY 03/21/18 Metoprolol Tartrate [Lopressor (beta vineet)] 25 mg PO BID 03/21/18 Allopurinol 100 mg PO DAILY 08/20/18 Famotidine 20 mg PO QHS PRN 08/20/18 Acetaminophen [Tylenol Tablet] 650 mg PO Q6H PRN PRN tab 08/29/18 Albuterol Aerosols [Ventolin Aerosols] 2.5 mg INHALATION Q2H PRN PRN vial.neb. 08/29/18 Senna/Docusate Sodium [Senokot-S] 2 tab PO BID PRN PRN tab 08/29/18 Sodium Chloride 0.65% [[place] Nasal [place]] 1 spray NASAL BID PRN PRN spray.btl 08/29/18 Bumetanide [Bumex] 2 mg PO BID 08/31/18 Ipratropium/Albuterol Sulfate [Duoneb] 3 ml INHALATION Q4HWA.RT 08/31/18 Multivitamin with Iron [Tab-A-Jessica with Iron] 1 ea PO DAILY 08/31/18 Nystatin Powder [Mycostatin Powder] 1 applic TOPICAL TID 08/31/18 Potassium Chloride [K-Dur] 20 meq PO BIDCM 08/31/18 Primary Care Physician: Brian Thao MD [Primary Care Provider] - Please follow up with your Primary Care Physician in: 1 WEEK. Test Results: Test results from this visit will be discussed in further detail at your follow- up appointment, if applicable.
--- NOTE | 2018-12-10 12:51 | PHA.DC.MR ---
Pharmacy Service has performed discharge medication reconciliation for this patient. No new medications added this visit. Medications reviewed are previously reported home medications. The patient's discharge medication list was reviewed for discrepancies and discrepancies were resolved. Home Medications Cholecalciferol (Vitamin D3) [Vitamin D3] 50,000 unit PO TH 11/28/16 Folic Acid 1 mg PO DAILY 11/28/16 Gabapentin [Neurontin] 300 mg PO 4X/DAY 11/28/16 Levothyroxine [Synthroid] 25 mcg PO DAILY 11/28/16 Oxybutynin [Ditropan] 5 mg PO DAILY 11/28/16 Venlafaxine HCl [Venlafaxine HCl ER] 150 mg PO DAILY 11/28/16 Hydroxyzine HCl 10 mg PO TID 06/13/17 Atorvastatin Calcium [Lipitor] 40 mg PO QHS 01/07/18 Melatonin 3 mg PO QHS #30 tab 03/19/18 Apixaban [Eliquis] 5 mg PO 0800,2000 03/21/18 Aspirin [Aspirin, Baby] 81 mg PO DAILY 03/21/18 Buspirone HCl 7.5 mg PO BID 03/21/18 Losartan Potassium 25 mg PO DAILY 03/21/18 Metoprolol Tartrate [Lopressor (beta vineet)] 25 mg PO BID 03/21/18 Allopurinol 100 mg PO DAILY 08/20/18 Famotidine 20 mg PO QHS PRN 08/20/18 Acetaminophen [Tylenol Tablet] 650 mg PO Q6H PRN PRN tab 08/29/18 Albuterol Aerosols [Ventolin Aerosols] 2.5 mg INHALATION Q2H PRN PRN vial.neb. 08/29/18 Senna/Docusate Sodium [Senokot-S] 2 tab PO BID PRN PRN tab 08/29/18 Sodium Chloride 0.65% [[place] Nasal [place]] 1 spray NASAL BID PRN PRN spray.btl 08/29/18 Bumetanide [Bumex] 2 mg PO BID 08/31/18 Ipratropium/Albuterol Sulfate [Duoneb] 3 ml INHALATION Q4HWA.RT 08/31/18 Multivitamin with Iron [Tab-A-Jessica with Iron] 1 ea PO DAILY 08/31/18 Nystatin Powder [Mycostatin Powder] 1 applic TOPICAL TID 08/31/18 Potassium Chloride [K-Dur] 20 meq PO BIDCM 08/31/18
--- NOTE | 2018-12-10 13:16 | PCM.DC.SUM ---
Discharge Date and Diagnosis Date of Admission: 12/08/18 Date of Discharge: 12/10/18 - Primary Discharge Diagnosis #1 acute on chronic diastolic CHF. #2 chronic hypoxic and hypercapnic respiratory failure. #3 moderate to severe pulmonary hypertension. - Secondary Discharge Diagnosis Chronic Problems (Last Reviewed 10/02/18 @ 14:19 by CHERYL Tang) Acute on chronic respiratory failure with hypoxemia (Chronic) COPD (chronic obstructive pulmonary disease) (Chronic) MANUEL (obstructive sleep apnea) (Chronic) Cor pulmonale (Chronic) Respiratory failure with hypoxia and hypercapnia (Chronic) Chronic diastolic CHF (congestive heart failure) (Chronic) History of COPD (Chronic) Acute exacerbation of congestive heart failure (Chronic) Pulmonary embolism (Chronic) remote history-on anticoagulants Right bundle branch block (RBBB) (Chronic) Secondary pulmonary arterial hypertension (Chronic) Nicotine dependence (Chronic) Essential (primary) hypertension (Chronic) Morbid obesity with BMI of 60.0-69.9, adult (Chronic) Hospital Course and Treatment Imaging Results: Clinical Impression(s) from Imaging Studies Chest X-Ray 12/08/18 13:42 IMPRESSION: 1. No airspace consolidation. 2. Chronic interstitial edema in the lung bases. 3. Suspect pulmonary hypertension. Cardiomegaly. Electronically Signed: Jass Garcia MD (Brooks) at 15:19 EDT , Service support , Operations: None Procedures: 2-D Echocardiogram, EKG Summary of Care Provided: Patient seen and examined on day of discharge and appeared to be stable to be discharged home. She was assisted to go home today. She mentioned that her breathing is getting better and she remained stable on 6 L of oxygen. Her other vital signs are stable. The patient is a 53 year old F presented to the emergency room because of worsening shortness of breath and she was admitted for acute on chronic diastolic CHF. On admission, chest x-ray showed chronic interstitial edema without evidence of acute changes. Her EKG revealed normal sinus rhythm with PACs, right bundle branch block without evidence of acute ischemic changes. Her troponin was negative x3. Her BNP was highly elevated but it has been chronically elevated as well. On admission, ABG revealed pH of 7.43, PCO2 of 59 and PO2 of 67. Patient was treated with IV diuresis and bronchodilators. She diuresed more than 6 L of urine and her weight decreased by almost 15 pounds. Initially, she required up to 8 L of oxygen and with IV diuresis and bronchodilators, her oxygen requirement decreased down to 6 L which is her baseline at home. 2D echocardiogram revealed ejection fraction 55%, stage I diastolic dysfunction, pulmonary artery pressure of 35. Patient symptoms improved and she was requesting to be discharged. Patient discharged home in a stable medical condition, discharged on her previous home medications including Bumex twice daily, highly recommended to take her daily diuretics as prescribed and use her oxygen at home as well as bronchodilators, recommended follow-up with PCP in 1 week. - Physical Exam Vitals/I&O's: Vital Signs Temp Pulse Resp BP Pulse Ox 98.0 F 90 18 150/87 H 94 12/10/18 08:00 12/10/18 09:32 12/10/18 08:00 12/10/18 08:00 12/10/18 08:00 Oxygen Flow Rate (L/min) 6 Oxygen Delivery Method Nasal Cannula Weight: 323 lb 6.69 oz Body Mass Index (BMI) 52.2 Intake and Output for Last 24 Hours 12/08/18 12/09/18 12/10/18 23:59 23:59 23:59 Intake Total 190 / 190 950 / 950 980 / 980 Output Total 2600 / 2600 1100 / 1100 2550 / 2550 Balance -2410 / -2410 -150 / -150 -1570 / -1570 General: Alert, Oriented x3, Cooperative, No apparent distress HEENT: Atraumatic, PERRLA, EOMI Oral: Moist Mucosa, No Gingival or Mucosal Lesions/ Ulcerations Neck: Supple, No JVD, Negative Carotid Bruits, Trachea Midline, Thyroid Normal Size and Texture Lungs: No rhonchi, No wheeze, No rales, Diminished, - - Decreased breath sounds bilateral, otherwise clear. Cardiovascular: Regular rate, Regular Rhythm, Normal S1, Normal S2, PMI Normal, Murmur Abdomen: Bowel Sounds Present, Soft, Non Tender, Non-Distended, Obese Extremities: No clubbing, No cyanosis, Edema Skin: No rashes, No breakdown Lymphatic: No Cervical, Supraclavicular, or Inguinal Adenopathy Neurological: Cranial nerves II-XII grossly intact, Neuro grossly intact Psych/Mental Status: Normal Affect, Appropriate Laboratory Results 12/10/18 05:05: Sodium 143, Potassium 3.4 L, Chloride 99, Carbon Dioxide 40.0 H, Anion Gap 4 L, BUN 22 H, Creatinine 1.27 H, Estim Creat Clear Calc 46.86, Est GFR (MDRD) Af Amer 56 L, Est GFR (MDRD) Non-Af 46 L, BUN/Creatinine Ratio 17.3, Glucose 76, Calcium 8.7, Phosphorus 3.1, Magnesium 1.6 Current Medications Acetaminophen (Tylenol) 650 mg PO Q6H PRN PRN PRN Reason: Pain or Fever Last Admin: 12/09/18 16:19 Dose: 650 mg Documented by: [facility] Last Admin: 12/10/18 09:32 Dose: 250 mg Documented by: Albuterol/Ipratropium (Duoneb) 3 ml INHALATION Q6H.RT [facility] Last Admin: 12/10/18 06:53 Dose: 3 ml Documented by: Apixaban (Eliquis) 5 mg PO 0800,2000 [facility] Last Admin: 12/10/18 09:33 Dose: 5 mg Documented by: Aspirin (Aspirin, Baby) [facility] Last Admin: 12/10/18 09:31 Dose: 81 mg Documented by: Atorvastatin Calcium (Lipitor) 40 mg PO QHS [facility] Last Admin: 12/09/18 20:03 Dose: 40 mg Documented by: Bumetanide (Bumex) 4 mg IV BID@1000,1800 [facility] Last Admin: 12/10/18 09:33 Dose: 4 mg Documented by: Dextrose (D50w Syringe) 0 gm IV X1 PRN; Protocol PRN Reason: Hypoglycemia Famotidine (Pepcid) 20 mg PO QHS PRN PRN Reason: gerd Last Admin: 12/10/18 03:33 Dose: 20 mg Documented by: Folic Acid (Folic Acid) [facility] Last Admin: 12/10/18 09:31 Dose: 1 mg Documented by: Gabapentin (Neurontin) [facility] Last Admin: 12/10/18 09:38 Dose: 100 mg Documented by: [facility] Last Admin: 12/09/18 20:04 Dose: Not Given Documented by: Glucagon () 1 mg IM .X1 PRN PRN Reason: Hypoglycemia Levothyroxine Sodium (Synthroid) 25 mcg PO DAILY@0600 [facility] Last Admin: 12/10/18 05:15 Dose: 25 mcg Documented by: Metoprolol Tartrate (Lopressor (Beta Garrett)) 25 mg PO BID [facility] Last Admin: 12/10/18 09:32 Dose: 25 mg Documented by: Potassium Chloride (K-Dur) [facility] Last Admin: 12/10/18 09:31 Dose: 20 meq Documented by: Senna/Docusate Sodium (Senokot-S, Cinda-Colace) 2 tablet PO BID PRN PRN PRN Reason: Constipation Venlafaxine HCl (Effexor Xr) 150 mg PO DAILY [facility] Last Admin: 12/10/18 09:31 Dose: 150 mg Documented by: Discharge Activity: Return to Normal Activity Weight Bearing Status: Weight bearing as tolerated Call your doctor if you observe: Fever of 101 or Higher, Shortness of breath, Dizziness, Fainting spells, Chest pain, Increased palpitations (irregular heartbeat), Uncontrolled pain Home Medications: Medications to take at Discharge Cholecalciferol (Vitamin D3) [Vitamin D3] 50,000 unit PO TH 11/28/16 Folic Acid 1 mg PO DAILY 11/28/16 Gabapentin [Neurontin] 300 mg PO 4X/DAY 11/28/16 Levothyroxine [Synthroid] 25 mcg PO DAILY 11/28/16 Oxybutynin [Ditropan] 5 mg PO DAILY 11/28/16 Venlafaxine HCl [Venlafaxine HCl ER] 150 mg PO DAILY 11/28/16 Hydroxyzine HCl 10 mg PO TID 06/13/17 Atorvastatin Calcium [Lipitor] 40 mg PO QHS 01/07/18 Melatonin 3 mg PO QHS #30 tab 03/19/18 Apixaban [Eliquis] 5 mg PO 0800,199903/21/18 Aspirin [Aspirin, Baby] 81 mg PO DAILY 03/21/18 Buspirone HCl 7.5 mg PO BID 03/21/18 Losartan Potassium 25 mg PO DAILY 03/21/18 Metoprolol Tartrate [Lopressor (beta garrett)] 25 mg PO BID 03/21/18 Allopurinol 100 mg PO DAILY 08/20/18 Famotidine 20 mg PO QHS PRN 08/20/18 Acetaminophen [Tylenol Tablet] 650 mg PO Q6H PRN PRN tab 08/29/18 Albuterol Aerosols [Ventolin Aerosols] 2.5 mg INHALATION Q2H PRN PRN vial.neb. 08/29/18 Senna/Docusate Sodium [Senokot-S] 2 tab PO BID PRN PRN tab 08/29/18 Sodium Chloride 0.65% [[place] Nasal [place]] 1 spray NASAL BID PRN PRN spray.btl 08/29/18 Bumetanide [Bumex] 2 mg PO BID 08/31/18 Ipratropium/Albuterol Sulfate [Duoneb] 3 ml INHALATION Q4HWA.RT 08/31/18 Multivitamin with Iron [Tab-A-Jessica with Iron] 1 ea PO DAILY 08/31/18 Nystatin Powder [Mycostatin Powder] 1 applic TOPICAL TID 08/31/18 Potassium Chloride [K-Dur] 20 meq PO BIDCM 08/31/18 Primary Care Physician: Brian Thao MD [Primary Care Provider] - Please follow up with your Primary Care Physician in: 1 WEEK. Please Follow Up With: Lena Curry NP-C Disposition: Home Minutes spent on discharge:: 32 Patient Condition:: Stable Medical Necessity - Tobacco Use Smoking Status: Current every day smoker Tobacco Use: Cigarettes Meaningful Use Info Meaningful Use Diagnoses (Choose all that apply): CHF - CHF DEJON/ARB ordered at discharge?: Yes Documented LVEF (%): 55 Code Visit Inpatient E&M: 98050 Disch Hosp
--- NOTE | 2018-12-10 13:22 | CASEMGMT ---
Addendum entered by Prerna Huggins 12/10/18 15:33: This RN CM unable to even attempt to obtain a portable tank from [place] at this time d/t how soon pt's ride was coming after notification of this RN CM. Pt leaving PCU at this time. Nikolas RN CM Addendum entered by Prerna Huggins 12/10/18 15:24: Per Catalino, recharger, pt states she now got a ride that will be here in 10 minutes but that they will not have her portable oxygen tank with them. Per Catalino, pt is still insisting on leaving. This RN CM to room and per pt, [facility] transportation called her and said they could not set up any transportation to come get her. Pt states that her daughter's friend is coming to get her right now and pt states that she is leaving at this time. This RN CM tried to convince her to wait to be able to get oxygen tank and that she should not be driven to [place] without her tank but pt states 'I will be fine.' After repeated attempts by this RN CM, pt's RN, and recharger, pt still insists on going home with daughter's friend without her oxygen at this time. Dr. Velasquez is updated at this time, voices understanding. Pt does have concentrator and portability at home. Pt states that she is normally only on 4liters at rest. Nikolas RN CM Addendum entered by Prerna Huggins 12/10/18 14:08: After 40 minute phone call to Angelmargaret at [facility] transportation line, she states that she will run this pass her arts administrator or manager and attempt to find a vendor to come get pt. Angelmargaret was made aware of pt need for oxygen tank for 6liters continuous at discharge as well as pt hgt/wgt. She is also aware that w/c is needed but that pt has walker with her. Dimitrios states that bead picker will be scheduled between 1103-1104 today and if there are any concerns, they will notify pt at that time. Pt updated on all at this time, voices understanding. Nikolas RN MAU Original Note: This RN CM to room to discuss discharge transportation with pt at this time. Pt states that her sister is at work and will not be done till 1930 and does not have gas to come get her. This RN CM asked about her daughters and pt states that it would take her daughter, Dhara, over four hours to get her because she lives farther away. Pt also states that her other daughter, Aruna, is at work and doesn't drive. Pt states that she attempted to reach her [facility] CM but she is out of the office today. This RN MAU to place call to [facility] transportation to see if they can arrange ride home for pt. Pt is on 6liters at home and does not have a tank with her. SStaten RN CM
--- NOTE | 2018-12-10 15:43 | NURSING ---
Pt given discharge instructions at this time. Pt's ride is here and patient insists on leaving at this minute. Pt does not have her portable home O2 tank with her and is currently on 4-6L of oxygen and wears 4L of O2 at home. This RN instructed pt on the importance of having somebody get her portable home O2 tank before she leaves but patient states I will be fine, I take my oxygen off at home all the time. Again, this RN reinforced that she lives 45 minutes away and this is a long time without oxygen. Pt still insisted on leaving at this time. This RN then requested to check patients Spo2 level on RA and pt refused stating it doesn't matter what it is I am going home regardless of my oxygen level. Dr. Velasquez made aware.
--- NOTE | 2018-12-10 16:28 | NURSING ---
Patient called in to the nurse's station to inform us that she made it home safely and is feeling well.
--- NOTE | 2018-12-11 13:23 | CASEMGMT ---
MARIEL CM DC PHONE CALL DC DATE: 12/10/18 DC Disposition: Home Diagnosis on Discharge: CHF LACE/STRATA: 12/16 Attempted call to home phone. No answer and no message machine with name identifier. Timothy YOUNG RN ACM
== END 2018-12-10 15:36 | disposition home or self-care (01) | DRG 194 ==
LOC: ED 15:29 → PCU 15:44
PROVIDERS: Internal Medicine; Admitting Provider Student in an Organized Health Care Education/Training Program; Emergency Provider Emergency Medicine; Family Provider Internal Medicine; PCP Internal Medicine; Referring Provider Student in an Organized Health Care Education/Training Program; Visit Provider Hospitalist
DX: I13.0 Hypertensive heart and chronic kidney disease with heart failure and stage 1 through stage 4 chronic kidney disease, or unspecified chronic kidney disease (principal); I50.33 Acute on chronic diastolic (congestive) heart failure; N18.3 Chronic kidney disease, stage 3 (moderate); J96.11 Chronic respiratory failure with hypoxia; J96.12 Chronic respiratory failure with hypercapnia; J44.9 Chronic obstructive pulmonary disease, unspecified; E03.9 Hypothyroidism, unspecified; G47.33 Obstructive sleep apnea (adult) (pediatric); E66.01 Morbid (severe) obesity due to excess calories; Z68.43 Body mass index [BMI] 50.0-59.9, adult; Z99.81 Dependence on supplemental oxygen; I27.81 Cor pulmonale (chronic); I45.10 Unspecified right bundle-branch block; F17.210 Nicotine dependence, cigarettes, uncomplicated; I27.21 Secondary pulmonary arterial hypertension; Z86.711 Personal history of pulmonary embolism
CPT/HCPCS: 36415; 36600; 71046; 80048; 82803; 83735; 83880; 84100; 84484; 85025; 93005; 93306; 94640; 97161; 97165; 97802; 99285; 99406; Q9957; A4216; C8929

== ENCOUNTER 2019-03-04 18:54 | Emergency (ER) | payer MEDICAID, SELFPAY ==
[2018-12-08 16:41] VITALS: BMI 52.2
[2019-03-04 18:56] VITALS: BP 149/97; PULSE 71; RESP 18; TEMP 36.4; O2SAT 98; BMI 55.3
[2019-03-04 19:27] VITALS: PULSE 71; RESP 19; TEMP 36.4; O2SAT 97
--- NOTE | 2019-03-04 19:27 | CT_ITS ---
STUDY: CT ABDOMEN AND PELVIS WITHOUT CONTRAST REASON FOR EXAM: Female, 53 years old. ABD SWELLING X WEEKS. LEFT ABD PAIN TODAY. LEFT BREAST PAIN. Hx of COPD, CHF, HTN and CKD. Best images d/t body habitus RADIATION DOSAGE (If Supplied By Facility): CTDIvol = ( 24.18 ) mGy, DLP = ( 1081.14 ) mGycm TECHNIQUE: Transaxial images were obtained from the dome of the diaphragm to the symphysis pubis without oral contrast, and without intravenous contrast. Sagittal and coronal images were reconstructed. Individualized dose optimization techniques were used for this CT. COMPARISON: Chest CT dated August 28, 2018 and CTA of the chest dated June 14, 2017. Report of CT of the chest dated September 11, 2012 FINDINGS: Exam is limited due to loss of detail of the internal structures secondary to very large body habitus. Significant body wall edema is present. Stable 4.10 cm smooth rounded pleural-based mass of the right costophrenic angle measuring 4.10 cm unchanged in size for nearly 7 years. Hamartoma or similar benign lesion is favored. Patchy fibrosis is present in the bilateral lung bases. No visualized gross abnormality of the liver. No intrahepatic biliary duct dilatation or liver mass. There are surgical clips in the gallbladder fossa consistent with a prior cholecystectomy. There are multiple benign calcified granulomata of the spleen. Grossly unremarkable pancreas. Normal bilateral adrenal glands. There is mild cortical atrophy of the right kidney, consistent with chronic medical renal disease. There is mild cortical atrophy of the left kidney, consistent with chronic medical renal disease. Several small cortical-based cysts of the left kidney are present. Multiple small cysts are present in the right kidney. No hydronephrosis or renal masses. No visualized stones. Normal visualized stomach. Normal small intestine. Normal colon. . No bowel dilatation or obstruction. No free air or free fluid. The appendix is visualized and appears normal. There is diffuse atherosclerotic calcification of the abdominal aorta with elongation and tortuosity, but without a demonstrated aneurysm. Normal inferior vena cava. Normal retroperitoneum. Normal urinary bladder. A small amount of air is present in the endometrial cavity and cervical canal of the uterus. There is a small to moderate size left paraumbilical dumbbell shaped hernia containing fat. A small amount of air is present in the left inguinal crease/fold. There are diffuse degenerative changes of the visualized lumbar spine. CT/Abdomen/Pelvis without Cont IMPRESSION: 1. A small amount of air is present in the endometrial cavity and cervical canal of the uterus, possibly iatrogenic. 2. There is a small to moderate size left paraumbilical dumbbell shaped hernia containing fat. 3. A small amount of air is present in the left inguinal crease/fold. Electronically Signed: Tristen Santa MD at 21:14 EST , Service support ,
--- NOTE | 2019-03-04 19:30 | ED.VIS.GI ---
History of Present Illness Chief Complaint: Abd Pain Informant: Patient - Abdominal Pain/Flank Pain Onset: Weeks - 2 Context: Gradual Onset Timing: Continuous Quality: Aching Location: LUQ Current Severity: Moderate Maximum Severity: Moderate Worsened by: Nothing Relieved by: Nothing - Nausea/Vomiting/Emesis GI Symptom: Negative for: Nausea, Vomiting - Diarrhea/Melena/Hematochezia GI Symptom: Negative for: Diarrhea, Melena, Hematochezia Associated Symptoms: Negative for: Dysuria, Frequency, Hematuria, Urgency Narrative: Patient has multiple problems. She has had left upper quadrant discomfort for 2 weeks. For the last couple days her left breast has been bothering her and painful especially near the nipple. She denies any discharge. No injury. She has been swelling in her abdomen and legs more than usual, they are chronically swollen and she is morbidly obese. She has had sores on her right lower extremity for over 1 to 2 weeks, she states it was itching and she scratched them open on accident and a seem to be worsening. She has pain just around the sores but nowhere else on her leg. She denies any fevers, chest pain, shortness of breath. She was seen by her home health nurse today who sent her to the ER for evaluation of all of this. States that she has been admitted for IV Lasix/diuresis in the past. She has a history of congestive heart failure and COPD but states she has been doing well with regards to both of those lately without orthopnea, dyspnea, chest pain. - Past Medical History (1) COPD (chronic obstructive pulmonary disease) Status: Chronic (2) Chronic diastolic CHF (congestive heart failure) Status: Chronic (3) Cor pulmonale Status: Chronic (4) Essential (primary) hypertension Status: Chronic (5) Morbid obesity with BMI of 60.0-69.9, adult Status: Chronic (6) MANUEL (obstructive sleep apnea) Status: Chronic (7) Pulmonary embolism Status: Chronic Comment: remote history-on anticoagulants (8) Right bundle branch block (RBBB) Status: Chronic (9) Secondary pulmonary arterial hypertension Status: Chronic Past Medical History - Allergies and Home Meds Allergies/Adverse Reactions: Allergies oxycodone [Oxycodone] Allergy (Verified 03/04/19 18:56) Rash oxycodone HCl [From Percodan] Allergy (Verified 03/04/19 18:56) Hives oxycodone terephthalate [From Percodan] Allergy (Verified 03/04/19 18:56) Hives Sulfa (Sulfonamide Antibiotics) Allergy (Verified 03/04/19 18:56) Hives cefuroxime Adverse Reaction (Verified 03/04/19 18:56) Unknown Cephalosporins Adverse Reaction (Verified 03/04/19 18:56) Vomiting meperidine HCl [From Demerol] Adverse Reaction (Verified 03/04/19 18:56) Vomiting NSAIDS (Non-Steroidal Anti-Inflamma Adverse Reaction (Verified 03/04/19 18:56) Unknown Primary Care Physician: Brian Thao MD [Primary Care Provider] - Surgical History: cholecystectomy, - - 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 Maternal Family History: Reports: - - Denies known cardiac history. Additional Family History: unable to get history, pt uncooperative Review of Systems General: Denies: Chills, Fever, Malaise, Sweats Eyes: Denies: Visual changes - bilaterally, Diplopia ENT: Denies: Bilateral ear pain, Rhinorrhea, Sore throat Cardiovascular: Denies: Chest pain, Palpitations Respiratory: Reports: Cough - Chronic, unchanged, - - Left breast pain. Denies: Dyspnea, Dyspnea on exertion, Orthopnea Gastrointestinal: Reports: Abdominal pain. Denies: Nausea, Vomiting, Diarrhea, Melena, Hematochezia Genitourinary: Denies: Dysuria, Hematuria, Frequency Musculoskeletal: Reports: Swelling, Extremity Pain. Denies: Neck pain, Back pain Skin: Reports: Wounds. Denies: Rash Neurological: Denies: Headache, Weakness, Numbness Physical Exam Vital Signs/Narrative: Vital Signs Temp Pulse Resp BP Pulse Ox 03/04/19 19:27 97.6 F L 71 19 H 97 03/04/19 18:56 97.6 F L 71 18 149/97 H 98 Inital Vital Signs reviewed: Yes General: Well nourished, Well developed, Obese, No Acute Distress - Conversive in full sentences Head: Normocephalic, Atraumatic Eyes: Perrl, EOMI ENT: Moist mucous membranes, No rhinorrhea Neck: Supple, Nontender Cardiovascular: Regular rate, Regular rhythm, No murmurs Respiratory: No distress, CTA bilaterally, Chest nontender, - - Left breast is tender, mildly erythematous, less so than her abdominal wall, areola and nipple appear normal, are tender, no expressible discharge. No palpable lumps or abscess. No peau d'orange appearance. Abdomen: Soft, Nondistended, Normal bowel sounds, Tender - Left upper quadrant only. Exam is limited due to morbid obesity and edema of the abdominal wall., - - The entire abdominal wall was erythematous, edematous, and nontender throughout all of these areas. No sign of an abscess. No palpable hernia.. Negative for: Guarding, Rebound tenderness Back: Nontender, Normal Inspection Extremities: Tenderness - Right anterior leg, surrounding to superficial ulcerations, each about 1 cm wide about the mid landa with surrounding cellulitis. No subcutaneous emphysema., Edema - 2+ BLE, - - Dark discoloration of both lower legs consistent with stasis dermatitis and dry skin in her feet. Skin: - - Right lower leg ulcerations without purulent discharge or abscess, surrounding cellulitis that is tender. No lymphangitis. See above. Neurological: Alert, Oriented x3, Cranial nerves II-XII grossly intact, Normal Strength, Normal Sensation Psychological: Normal affect, Normal Mood Diagnostic/Tx/Re-eval Impressions Abdomen/Pelvis CT 03/04/19 19:27 IMPRESSION: 1. A small amount of air is present in the endometrial cavity and cervical canal of the uterus, possibly iatrogenic. 2. There is a small to moderate size left paraumbilical dumbbell shaped hernia containing fat. 3. A small amount of air is present in the left inguinal crease/fold. Electronically Signed: Tristen Santa MD at 21:14 EST , Service support , Tibia/Fibula X-Ray 03/04/19 20:30 IMPRESSION: 1. There is appearance of cortical erosion of the lateral cortex of the medial malleolus which could be the result of osteomyelitis or prior trauma to this region. A dedicated ankle x-ray is recommended for further assessment. Electronically Signed: Tristen Santa MD at 21:28 EST , Service support , 03/04/19 19:27 Abdomen/Pelvis without Cont [CT] Stat 03/04/19 20:30 Xray Tibia [Tibia & Fibula 2 Views] [RAD] Stat Laboratory Results 03/04/19 03/04/19 03/04/19 19:37 19:37 20:20 WBC 5.3 RBC 7.04 H Hgb 17.2 H Hct 61.9 H MCV 87.9 MCH 24.4 L MCHC 27.8 L RDW Std Deviation 79.7 H RDW Coeff of [place] 25.3 H Plt Count 193 MPV 9.3 Immature Gran % (Auto) [employer] Neut % (Auto) [employer] Lymph % (Auto) [employer] Dawson % (Auto) [employer] Eos % (Auto) [employer] Baso % (Auto) [employer] Absolute Neuts (auto) 3.1 Absolute Lymphs (auto) 1.43 Nucleated RBC % 0 Platelet Estimate ADEQUATE RBC Morphology N CYTIC Anisocytosis 1+ Microcytosis RARE Target Cells 1+ Sodium 141 Potassium 4.4 Chloride 104 Carbon Dioxide 35.0 H Anion Gap 2 L BUN 28 H Creatinine 1.31 H Estim Creat Clear Calc 45.42 Est GFR (MDRD) Af Amer 54 L Est GFR (MDRD) Non-Af 45 L BUN/Creatinine Ratio 21.4 H Glucose 68 L Calcium 8.9 Urine Color Yellow Urine Clarity Cloudy Urine pH 6.5 Ur Specific [place] 1.010 Urine Protein 100 H Urine Glucose (UA) Normal Urine Ketones Negative Urine Occult Blood 10 H Urine Nitrite Positive H Urine Bilirubin Negative Urine Urobilinogen 1 H Ur Leukocyte Esterase 100 H Urine RBC 0-5 SEEN Urine WBC 0-5 SEEN Ur Squamous Epith Cells 0-5 SEEN Urine Bacteria 4+ Hyaline Casts 0-5 SEEN Urine Mucus 0 SEEN - Medical Decision Making Urine will be sent for culture, although she does not have particular symptoms of a urinary tract infection, there was positive nitrate and she does have abdominal symptoms. She does not examine or have symptoms of pyelonephritis. She has a mild renal insufficiency that is relatively stable. I gave her some IV Lasix, and empiric Ancef for both what appears to be mastitis and cellulitis surrounding a couple of superficial wounds on her right lower leg. X-ray shows no sign of osteomyelitis however there is a cortical abnormality seen at the medial malleolus. The patient does not have clinical findings or pain at her ankle so I think this is clinically unrelated. She can follow-up for this if she develops pain there. Since she has no dyspnea, chest pain, orthopnea, hypoxemia, or trouble getting around, I feel she can be discharged on a course of Lasix, she states this has happened before but she was admitted in the past for it. I will also discharge her on antibiotics, cephalexin should cover the cellulitis, mastitis, and the urine infection, if the latter is present. She is comfortable with this plan of following up with her doctor as an outpatient. Refer to wound care as well. Dressings placed here. Also prescribed Lasix. ED Disposition - Plan for ED Patient: Disposition: Home or Assisted Living Diagnosis: Cellulitis of right lower extremity without foot, Wound of right leg, Mastitis, left, acute, Peripheral edema Instructions: ED Peripheral Edema, Bilateral, Mastitis, Cellulitis Prescriptions: Cephalexin [Keflex] 500 mg PO 4X/DAY #40 cap Prescription Printed Furosemide [Lasix] 40 mg PO BID #28 tab Prescription Printed Ondansetron [Zofran Odt] 4 - 8 mg PO Q8H PRN PRN #20 tab PRN Reason: Nausea Prescription Printed Referrals: Brian Thao MD [Primary Care Provider] - 3-5 Days Wound Health [Outside] - As soon as possible ([phone])
[2019-03-04] MEDS: Furosemide 40 MG/4 ML Vial IV (19:36)
[2019-03-04 19:57] LABS: Absolute Lymphocyte Count 1.43 X10^3/uL (0.83-4.51); Absolute Neutrophil Count 3.1 X10^3/uL (2.0-7.7); Basophil# 0.06 X10^3/uL; Eosinophil# 0.13 X10^3/uL; Hematocrit 61.9 % (37-47); Hemoglobin 17.2 g/dL (12.0-15.0); Lymphocyte # 1.43 X10^3/ul (4.0); Mean Corp Hgb Conc 27.8 g/dL (32-36); Mean Corpuscular Hgb 24.4 pg (27.0-32.0); Mean Corpuscular Volume 87.9 fL (81-99); Mean Platelet Vol. 9.3 fl (6.2-12.0); Monocyte# 0.56 X10^3/uL; NRBC Flagged by Analyzer 0 % (0-5); Neutrophil # 3.08 X10^3/uL (2.7-7.7); POSITIVE MORPHOLOGY YES; Platelet Count 193 K/mm3 (150-450); RBC Distribution Width CV 25.3 % (11.6-14.6); RBC Distribution Width SD 79.7 fl (35.1-43.9); Red Blood Count 7.04 M/mm3 (4.2-5.4); White Blood Count 5.3 K/mm3 (4.4-11.0)
[2019-03-04 19:58] LABS: Differential Indicated SCAN CRITERIA MET
[2019-03-04] MEDS: HYDROcodone Bitartrate/Apap 5/325 Tablet PO (19:59)
[2019-03-04] MEDS: LORazepam 2 MG/ML Syringe 1 MG IV (20:00)
[2019-03-04] MEDS: Cefazolin 1 GM/50 ML BAG IV (20:00)
[2019-03-04 20:12] LABS: Anion Gap 2 (5-15); BUN 28 mg/dL (7-18); BUN/Creat Ratio 21.4 RATIO (10-20); Calcium,Total 8.9 mg/dL (8.5-10.1); Chloride 104 mmol/L (98-107); Creatinine, Serum 1.31 mg/dL (0.55-1.02); EST Glomerular Filtration Rate 45 mL/min (>60); Est Glom Filt Rate - Afr Amer 54 mL/min (>60); Estimated Creatinine Clearance 45.42 ml/min; Glucose 68 mg/dL (74-106); Potassium 4.4 mmol/L (3.5-5.1); Sodium Level 141 mmol/L (136-145)
[2019-03-04 20:25] VITALS: PULSE 80; RESP 18; TEMP 37; O2SAT 95
[2019-03-04 20:28] LABS: Scan Smear per Review Criteria MANUAL DIFF
[2019-03-04 20:29] LABS: Platelet Estimate ADEQUATE (ADEQ)
[2019-03-04 20:30] LABS: Anisocytosis 1+; Microcytosis RARE; Red Cell Morphology N CYTIC NORMAL (NORM C&C); Target Cells 1+
--- NOTE | 2019-03-04 20:30 | RAD_ITS ---
STUDY: X-RAY - RIGHT TIBIA AND FIBULA REASON FOR EXAM: Female, 53 years old. infection and wounds to right leg TECHNIQUE: 3 view(s) of the tibia and fibula were obtained. COMPARISON: None. FINDINGS: The tibia and fibula are demineralized. The mineralization and patchy lucency is most prominent in the distal one third aspect of the tibia. There is appearance of cortical erosion of the lateral cortex of the medial malleolus which could be the result of osteomyelitis or prior trauma to this region. A dedicated ankle x-ray is recommended for further assessment. No visualized acute fracture or displacement. Severe DJD noted in the medial compartment. Additional degenerative changes are present in the knee joint. The soft tissues are diffusely swollen. RAD/Tibia & Fibula 2 Views IMPRESSION: 1. There is appearance of cortical erosion of the lateral cortex of the medial malleolus which could be the result of osteomyelitis or prior trauma to this region. A dedicated ankle x-ray is recommended for further assessment. Electronically Signed: Tristen Santa MD at 21:28 EST , Service support ,
[2019-03-04 20:46] LABS: Mucous, Urine 0 SEEN /hpf (<or=2+)
[2019-03-04 20:47] LABS: Color, Urine Yellow (Yellow); Glucose, Dipstick Normal (Normal); Ketone-Dipstick Negative (Negative); Leukocyte Esterase-Dipstick 100 /ul (Negative); Nitrite-Dipstick Positive (Negative); Occult Blood-Urine 10 /ul (Negative); Protein-Dipstick 100 mg/dl (Negative); Urine Bilirubin Dipstick Negative (Negative); Urine Clarity Cloudy (Clear); Urine Urobilinogen 1 mg/dl (Normal); Urine pH 6.5 (5.0 - 8.0)
[2019-03-04 21:00] VITALS: BP 145/54; PULSE 64; RESP 17; TEMP 37.1; O2SAT 95
[2019-03-04 21:10] LABS: Bacteria 4+ /hpf (None Seen); Squamous Epithelial Cells - UA 0-5 SEEN /hpf (5-10)
[2019-03-04 21:11] LABS: Hyaline Cast 0-5 SEEN /lpf (0-5)
[2019-03-04 21:12] LABS: Red Blood Cells-Urine 0-5 SEEN /hpf (0-5); White Blood Cells 0-5 SEEN /hpf (0-5)
[2019-03-04 22:24] VITALS: O2SAT 84
[2019-03-04 22:30] VITALS: O2SAT 96
[2019-03-05] VITALS: BP 145/99; PULSE 80; RESP 17; O2SAT 95
[2019-03-05 02:32] VITALS: PULSE 62; O2SAT 98
[2019-03-05 03:57] VITALS: BP 145/99; PULSE 80; RESP 17; O2SAT 99
== END 2019-03-05 06:07 | disposition home or self-care (01) ==
PROVIDERS: Emergency Provider Emergency Medicine; PCP Internal Medicine
DX: N61.0 Mastitis without abscess (principal); R60.0 Localized edema; L03.115 Cellulitis of right lower limb; E66.01 Morbid (severe) obesity due to excess calories; J44.9 Chronic obstructive pulmonary disease, unspecified; I11.0 Hypertensive heart disease with heart failure; I50.32 Chronic diastolic (congestive) heart failure; I27.21 Secondary pulmonary arterial hypertension; Z86.711 Personal history of pulmonary embolism; Z68.44 Body mass index [BMI] 60.0-69.9, adult; Z87.891 Personal history of nicotine dependence; Z79.51 Long term (current) use of inhaled steroids; Z79.02 Long term (current) use of antithrombotics/antiplatelets; Z79.82 Long term (current) use of aspirin; Z79.899 Other long term (current) drug therapy
CPT/HCPCS: 36415; 73590; 74176; 80048; 81001; 85025; 87040; 96365; 96375; 99285; J7030; A4216; J1940

== ENCOUNTER 2019-03-18 18:22 | Inpatient (IN) | payer MEDICAID, SELFPAY ==
[2019-03-18 18:25] VITALS: BP 120/83; PULSE 79; RESP 22; TEMP 36.4; O2SAT 94; BMI 53.1
--- NOTE | 2019-03-18 18:51 | CT_ITS ---
STUDY: CT BRAIN WITHOUT CONTRAST REASON FOR EXAM: Female, 53 years old. FELL IN BATHROOM, ON ELIQUIS RADIATION DOSAGE (If Supplied By Facility): CTDIvol = ( 44.99 ) mGy, DLP = ( 762.36 ) mGycm TECHNIQUE: Transaxial CT imaging of the brain was performed without administration of intravenous contrast material. Individualized dose optimization techniques were used for this CT. COMPARISON: 11/05/2009 FINDINGS: Normal soft tissue structures. Normal calvarium. Normal size ventricles and extra-axial spaces for the patient''s age. Normal white matter tracts of the cerebral hemispheres. Normal basal ganglia and thalami. Normal brainstem. Normal cerebellum. In the sella. There is no intracranial hemorrhage. There are no findings of an acute ischemic infarction. Normal visualized paranasal sinuses. CT/Brain/Head without Contrast IMPRESSION: No fracture or hemorrhage. Electronically Signed: Nestor Santoro MD at 20:38 EST Tel , Service support ,
--- NOTE | 2019-03-18 18:52 | EKG12_ITS ---
Test Reason : DYSRHYTHMIA Blood Pressure : / mmHG Vent. Rate : 075 BPM Atrial Rate : 075 BPM P-R Int : 174 ms QRS Dur : 174 ms QT Int : 462 ms P-R-T Axes : 068 123 -62 degrees QTc Int : 515 ms Normal sinus rhythm Right bundle branch block , plus right ventricular hypertrophy Septal infarct , age undetermined T wave abnormality, consider inferolateral ischemia Abnormal ECG Confirmed by MAGALI BONILLA, ARETHA ([id number]), slot editor MEETA BARTON ([id number]) on 03/20/2019 9:01:34 AM Referred By: Brian Thao Confirmed By:ARETHA DE LOS SANTOS MD
--- NOTE | 2019-03-18 18:53 | RAD_ITS ---
STUDY: X-RAY - LEFT TIBIA AND FIBULA REASON FOR EXAM: Female, 53 years old. fall, pain, lower leg infection, best images possible due to patient''s body habitus and ability to cooperate TECHNIQUE: 2 view(s) of the tibia and fibula were obtained. COMPARISON: None. FINDINGS: Degenerative knee and ankle changes. Diffuse demineralization. Soft tissues are intact. No fractures or osteolytic lesions are seen. RAD/Tibia & Fibula 2 Views IMPRESSION: No fractures or osteolytic lesions are seen. Electronically Signed: Nestor Santoro MD at 21:06 EST Tel , Service support ,
--- NOTE | 2019-03-18 18:53 | RAD_ITS ---
STUDY: X-RAY - RIGHT TIBIA AND FIBULA REASON FOR EXAM: Female, 53 years old. fall, pain, lower leg infection, best images possible due to patient''s body habitus and ability to cooperate TECHNIQUE: 2 view(s) of the tibia and fibula were obtained. COMPARISON: None. FINDINGS: Degenerative knee and ankle changes. Diffuse demineralization. Soft tissues are intact. No fractures or osteolytic lesions are seen. RAD/Tibia & Fibula 2 Views IMPRESSION: No fractures or osteolytic lesions are seen. Electronically Signed: Nestor Santoro MD at 21:04 EST Tel , Service support ,
[2019-03-18 19:37] LABS: Absolute Neutrophil Count 4.8 X10^3/uL (2.0-7.7); Basophil# 0.06 X10^3/uL; Basophil% 0.8 % (0-1); Eosinophil# 0.16 X10^3/uL; Eosinophils% 2.2 % (0-5); Hemoglobin 17.8 g/dL (12.0-15.0); Lymphocyte % 16.8 % (19-41); Mean Corp Hgb Conc 27.9 g/dL (32-36); Mean Corpuscular Hgb 24.5 pg (27.0-32.0); Mean Corpuscular Volume 87.5 fL (81-99); Mean Platelet Vol. 9.5 fl (6.2-12.0); Monocyte# 0.91 X10^3/uL; Monocyte% 12.7 % (0-10); NRBC Flagged by Analyzer 0.4 % (0-5); Neutrophil % 67.1 % (47-70); POSITIVE MORPHOLOGY YES; Platelet Count 220 K/mm3 (150-450); RBC Distribution Width CV 26.4 % (11.6-14.6); RBC Distribution Width SD 82.7 fl (35.1-43.9); Red Blood Count 7.28 M/mm3 (4.2-5.4); White Blood Count 7.2 K/mm3 (4.4-11.0)
[2019-03-18 19:59] LABS: ALB/GLOB Ratio 0.8 RATIO (0.9-2.4); AST(SGOT) 120 U/L (15-37); Alanine Aminotransfer ALT/SGPT 74 U/L (13-56); Alkaline Phosphatase 142 U/L (45-117); Anion Gap 3 (5-15); BUN 46 mg/dL (7-18); BUN/Creat Ratio 17.6 RATIO (10-20); Calcium,Total 9.8 mg/dL (8.5-10.1); Chloride 98 mmol/L (98-107); Creatinine, Serum 2.62 mg/dL (0.55-1.02); EST Glomerular Filtration Rate 20 mL/min (>60); Est Glom Filt Rate - Afr Amer 24 mL/min (>60); Estimated Creatinine Clearance 23.59 ml/min; Globulin 3.8 g/dL (2.2-4.2); Glucose 119 mg/dL (74-106); Protein, Total 6.8 g/dL (6.4-8.2); Sodium Level 138 mmol/L (136-145)
[2019-03-18 20:00] LABS: Differential Comment SCANNED
[2019-03-18 20:01] LABS: Differential Indicated SCAN CRITERIA MET; Hematocrit 63.7 % (37-47); Lactic Acid 2.1 mmol/L (0.4-1.9)
[2019-03-18] MEDS: HYDROcodone Bitartrate/Apap 5/325 Tablet PO (20:06)
[2019-03-18 20:08] LABS: Bacteria 0 SEEN /hpf (None Seen); Mucous, Urine 0 SEEN /hpf (<or=2+); Red Blood Cells-Urine 0 SEEN /hpf (0-5); Squamous Epithelial Cells - UA 0 SEEN /hpf (5-10)
[2019-03-18 20:15] LABS: CPK Total, Creatine Kinase 444 U/L (26-192)
[2019-03-18 20:17] LABS: Color, Urine Yellow (Yellow); Glucose, Dipstick Normal (Normal); Ketone-Dipstick 5 mg/dl (Negative); Leukocyte Esterase-Dipstick 25 /ul (Negative); Nitrite-Dipstick Negative (Negative); Occult Blood-Urine Negative /ul (Negative); Protein-Dipstick 100 mg/dl (Negative); Urine Clarity Clear (Clear); Urine Urobilinogen 8 mg/dl (Normal)
[2019-03-18 20:18] LABS: Urine Bilirubin Dipstick 1 mg/dL (Negative)
--- NOTE | 2019-03-18 20:20 | RAD_ITS ---
STUDY: X-RAY CHEST REASON FOR EXAM: Female, 53 years old. fall, pain, lower leg infection, best images possible due to patient''s body habitus and ability to cooperate TECHNIQUE: Frontal and lateral views of the chest. COMPARISON: 12/08/2018 FINDINGS: Central vascular congestion. Right basilar alveolar disease. There is no demonstrated pleural abnormality. Stable cardiomediastinal silhouette. Normal mediastinum and randolph. Normal visualized pulmonary arteries. Normal visualized aortic arch and descending thoracic aorta. Normal visualized thoracic spine. Normal visualized ribs, clavicles, and shoulders. There is no demonstrated abnormality of the visualized soft tissue structures of the upper abdomen. RAD/Chest PA and Lateral IMPRESSION: Central vascular congestion. Right basilar alveolar disease. Electronically Signed: Nestor Santoro MD at 21:06 EST Tel , Service support ,
[2019-03-18 20:25] LABS: Hyaline Cast 10-25 SEEN /lpf (0-5); White Blood Cells 0-5 SEEN /hpf (0-5)
[2019-03-18 20:30] VITALS: PULSE 75; RESP 12; RESP 22; O2SAT 93
[2019-03-18 20:43] VITALS: BP 142/101; PULSE 74; RESP 14; O2SAT 94
--- NOTE | 2019-03-18 22:37 | HP.PCM_ITS ---
Problem List (1) Acute on chronic respiratory failure with hypoxia and hypercapnia Status: Chronic (2) Peripheral artery disease Status: Acute (3) Ulcer Status: Chronic (4) Ulcer of right leg Status: Chronic (5) Nicotine dependence Status: Chronic History of Present Illness Date of Admission: 03/18/19 Chief Complaint: fall The patient is a 53 year old F with a significant history of COPD; hypertension; hypothyroidism; morbid obesity; nicotine dependence; sleep apnea; who presented to the emergency department because of a fall. At the emergency department patient was noted to be falling asleep while history was taken. Emergent department doctor reported ABG and 7.32 and a CO2 of 68.7 Patient was started on BiPAP at the emergency department. Also patient was noted to have cyanotic bilateral lower extremities and ulcers on his right leg. Her lactic acid was 2.1. Patient was given vancomycin and Zosyn in the emergency department. Also her creatinine was severely elevated above her baseline. Because of pain she was given [place] at the emergency department. Past Medical History Past Medical History (Chronic Problems): Chronic Problems (Last Reviewed 03/19/19 @ 05:33 by Bill Rosen MD) Acute on chronic respiratory failure with hypoxemia (Chronic) Acute on chronic respiratory failure with hypoxia and hypercapnia (Chronic) Ulcer (Chronic) Ulcer of right leg (Chronic) COPD (chronic obstructive pulmonary disease) (Chronic) MANUEL (obstructive sleep apnea) (Chronic) Cor pulmonale (Chronic) Respiratory failure with hypoxia and hypercapnia (Chronic) Chronic diastolic CHF (congestive heart failure) (Chronic) History of COPD (Chronic) Acute exacerbation of congestive heart failure (Chronic) Pulmonary embolism (Chronic) remote history-on anticoagulants Right bundle branch block (RBBB) (Chronic) Secondary pulmonary arterial hypertension (Chronic) Nicotine dependence (Chronic) Essential (primary) hypertension (Chronic) Morbid obesity with BMI of 60.0-69.9, adult (Chronic) Medical History: Medical History (Last Reviewed 03/19/19 @ 05:33 by Bill Rosen MD) Pulmonary embolism (Chronic) I26.99 remote history-on anticoagulants Right bundle branch block (RBBB) (Chronic) I45.10 Secondary pulmonary arterial hypertension (Chronic) I27.21 Nicotine dependence (Chronic) F17.200 Essential (primary) hypertension (Chronic) I10 Morbid obesity with BMI of 60.0-69.9, adult (Chronic) E66.01, Z68.44 COPD (chronic obstructive pulmonary disease) J44.9 Chronic kidney disease N18.9 Hypothyroidism E03.9 Obstructive sleep apnea G47.33 Transaminitis R74.0 Sleep apnea syndrome (Inactive) G47.30 Allergies oxycodone [Oxycodone] Allergy (Verified 03/18/19 18:24) Rash oxycodone HCl [From Percodan] Allergy (Verified 03/18/19 18:24) Hives oxycodone terephthalate [From Percodan] Allergy (Verified 03/18/19 18:24) Hives Sulfa (Sulfonamide Antibiotics) Allergy (Verified 03/18/19 18:24) Hives cefuroxime Adverse Reaction (Verified 03/18/19 18:24) Unknown Cephalosporins Adverse Reaction (Verified 03/18/19 18:24) Vomiting meperidine HCl [From Demerol] Adverse Reaction (Verified 03/18/19 18:24) Vomiting NSAIDS (Non-Steroidal Anti-Inflamma Adverse Reaction (Verified 03/18/19 18:24) Unknown Home Medications: Ambulatory Orders Medication Instructions Recorded Cholecalciferol (Vitamin D3) 50,000 unit PO TH 11/28/16 [Vitamin D3] Folic Acid 1 mg PO DAILY 11/28/16 Gabapentin [Neurontin] 300 mg PO 4X/DAY 11/28/16 Levothyroxine [Synthroid] 25 mcg PO DAILY 11/28/16 Oxybutynin [Ditropan] 5 mg PO DAILY 11/28/16 Venlafaxine HCl [Venlafaxine HCl 150 mg PO DAILY 11/28/16 ER] Hydroxyzine HCl 10 mg PO TID 06/13/17 Atorvastatin Calcium [Lipitor] 40 mg PO QHS 01/07/18 Melatonin 3 mg PO QHS #30 tab 03/19/18 Apixaban [Eliquis] 5 mg PO 0800,199903/21/18 Aspirin [Aspirin, Baby] 81 mg PO DAILY 03/21/18 Losartan Potassium 25 mg PO DAILY 03/21/18 Metoprolol Tartrate [Lopressor 25 mg PO BID 03/21/18 (beta vineet)] Allopurinol 100 mg PO DAILY 08/20/18 Famotidine 20 mg PO QHS PRN 08/20/18 Acetaminophen [Tylenol Tablet] 650 mg PO Q6H PRN PRN tab 08/29/18 Albuterol Aerosols [Ventolin 2.5 mg INHALATION Q2H PRN PRN 08/29/18 Aerosols] vial.neb. Senna/Docusate Sodium [Senokot-S] 2 tab PO BID PRN PRN tab 08/29/18 Sodium Chloride 0.65% [[place] Nasal 1 spray NASAL BID PRN PRN 08/29/18 [place]] spray.btl Ipratropium/Albuterol Sulfate 3 ml INHALATION Q4HWA.RT 08/31/18 [Duoneb] Multivitamin with Iron [Tab-A-Jessica 1 ea PO DAILY 08/31/18 with Iron] Nystatin Powder [Mycostatin Powder] 1 applic TOPICAL TID 08/31/18 Cephalexin [Keflex] 500 mg PO 4X/DAY #40 cap 03/04/19 Furosemide [Lasix] 40 mg PO BID #28 tab 03/04/19 Ondansetron [Zofran Odt] 4 - 8 mg PO Q8H PRN PRN #20 tab 03/04/19 Albuterol Sulfate [Ventolin Hfa] 2 puff IH Q4H PRN PRN 03/18/19 Budesonide/Formoterol 160/4.5 1 puff IH BID 03/18/19 [Symbicort 160/4.5 Mcg Inhaler (SP)] Doxycycline Hyclate 100 mg PO DAILY 03/18/19 traMADol [Ultram] 50 mg PO TID PRN 03/18/19 Surgical History: Surgical History (Last Reviewed 03/19/19 @ 05:22 by Bill Rosen MD) History of left heart catheterization Onset Date: 06/16/17 Z98.890 Hx of cholecystectomy Z90.49 Surgical History: cholecystectomy, - - 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 Maternal History Items: - - Patient denies knowledge of maternal medical history. Review of Systems Unable to obtain accurate/complete ROS d/t: Patient is obtunded and Sleeping throughout history taking. VTE Information - Inpt Only VTE Present on Admission: Yes - History of PE VTE Mechan Device Prophylaxis: None VTE Pharm Prophylaxis ordered?: No Reason prophylaxis not ordered:: Treatment Not Indicated - On home Eliquis. Because of n.p.o. status Eliquis held. Start on a heparin drip. Patient Problems: Active and Suspected Problems (Last Reviewed 03/19/19 @ 05:33 by Bill Rosen MD) Peripheral artery disease (Acute) - Physical Exam Vitals/I&O's: Vital Signs Temp Pulse Resp BP Pulse Ox 97.5 F L 74 14 142/101 H 94 03/18/19 18:25 03/18/19 20:43 03/18/19 20:43 03/18/19 20:43 03/18/19 20:43 Oxygen Flow Rate (L/min) 4 Oxygen Delivery Method Bi-pap Weight: 154 kg Body Mass Index (BMI) 53.1 General: - - Obtunded HEENT: Atraumatic, Normocephalic Neck: Supple, Trachea Midline Lungs: No rhonchi, No rales, Wheezes Cardiovascular: Regular rate, Normal S1, Normal S2, No murmurs Abdomen: Bowel Sounds Present, Soft, Non Tender Extremities: Cyanosis Skin: No rashes, No breakdown Musculoskeletal: Tenderness - Bilateral lower extremities Neurological: - - Patient is obtunded. Psych/Mental Status: - - Patient is obtunded. Laboratory Results 03/18/19 19:15: WBC 7.2, RBC 7.28 H, Hgb 17.8 H, Hct 63.7 H, MCV 87.5, MCH 24.5 L, MCHC 27.9 L, RDW Std Deviation 82.7 H, RDW Coeff of [place] 26.4 H, Plt Count 220, MPV 9.5, Immature Gran % (Auto) 0.400, Neut % (Auto) 67.1, Lymph % (Auto) 16.8 L, [place] % (Auto) 12.7 H, Eos % (Auto) 2.2, Baso % (Auto) 0.8, Absolute Neuts (auto) 4.8, Absolute Lymphs (auto) 1.20, Nucleated RBC % 0.4, Differential Comment SCANNED 03/18/19 19:15: Sodium 138, Potassium 5.0, Chloride 98, Carbon Dioxide 37.0 H, Anion Gap 3 L, BUN 46 H, Creatinine 2.62 H, Estim Creat Clear Calc 23.59, Est GFR (MDRD) Af Amer 24 L, Est GFR (MDRD) Non-Af 20 L, BUN/Creatinine Ratio 17.6, Glucose 119 H, Calcium 9.8, Total Bilirubin 1.30 H, AST 120 H, ALT 74 H, Alkaline Phosphatase 142 H, Troponin I 0.034, Total Protein 6.8, Albumin 3.0 L, Globulin 3.8, Albumin/Globulin Ratio 0.8 L 03/18/19 19:15: Lactic Acid 2.1 H* 03/18/19 19:15: Total Creatine Kinase 444 H 03/18/19 20:00: Urine Color Yellow, Urine Clarity Clear, Urine pH 5.0, Ur Specific [place] 1.020, Urine Protein 100 H, Urine Glucose (UA) Normal, Urine Ketones 5 H, Urine Occult Blood Negative, Urine Nitrite Negative, Urine Bilirubin 1 H, Urine Urobilinogen 8 H, Ur Leukocyte Esterase 25 H, Urine RBC 0 SEEN, Urine WBC 0-5 SEEN, Ur Squamous Epith Cells 0 SEEN, Urine Bacteria 0 SEEN, Hyaline Casts 10-25 SEEN, Urine Mucus 0 SEEN Assessment/Plan All Active Problems (Last Reviewed 03/19/19 @ 05:33 by Bill Rosen MD) Peripheral artery disease (Acute) Bronchospasm (Resolved) The patient is a 53 year old F with a significant history of COPD; hypertension; hypothyroidism; morbid obesity; nicotine dependence; sleep apnea; who presented to the emergency department because of a fall; with cyanotic bilateral lower extremities and ulcers on right landa; sleepy on examination and with hypoxia and hypercapnia. Acute on chronic hypoxemic and hypercapnic respiratory failure. At the time of examination patient was on BiPAP. When BiPAP was taken off her oxygen saturation dropped to the 70s. ABG showed pH of 7.32; PO2 of 63 and PCO2 of 68.7. Continue BiPAP. Etiology of her symptoms could be from acute exacerbation of COPD; exacerbation of her pulmonary hypertension; or pickwickian syndrome. Steroid, Solu-Medrol 125 mg x 1 given. Placed on scheduled Solu-Medrol. Scheduled DuoNeb and PRN albuterol ordered. Acute Encephalopathy Likely from hypoxemia and hypercapnia Bipap as above Patient was requesting pain meds at the [facility]. No pain med at this time Check drug screen Peripheral artery disease. Patient with cyanotic lower extremities. Review of old records shows that tibia and fibula x-ray had no fracture or osteolytic lesions. Given vancomycin and Zosyn at the emergency department. On home patient was on Keflex and doxycycline. Extremity ulcer could be from peripheral artery disease. Because of ANIL will now continue vancomycin. Will start patient on linezolid and Zosyn. We will get ESR; CRP and MRI of bilateral legs to rule out osteomyelitis. On home p.o. aspirin. Change to rectal aspirin since patient has been kept n.p.o. MARIA ELENA. ANIL. Creatinine on presentation was 2.62. Review of old record showed baseline creatinine around 1.22. BUN over creatinine is 17.6. With erythrocytosis Seco ndary to dehydration or tobacco use. Of note erythrocytosis is chronic. Patient on Lasix and Losartan at home. Held. Of note all home p.o. medication has been held because patient is lethargic and she is at risk of aspiration. While taking history and with sternal wrap patient kept falling asleep. Hypertension On presentation her blood pressure was not within goal Home Lasix and losartan held. Labetalol as needed ordered. Morbid obesity BMI 53.7. Counseled when appropriate. Transaminitis Chronic History of PE Patient on Eliquis. Because patient is at risk of taking p.o. medication. Eliquis held. Will start patient on heparin drip. Hypothyroidism Patient is on home Synthroid. Hold for now since patient is lethargic and risk of aspiration. Check TSH level. If TSH is normal patient is still lethargic is okay to hold p.o. thyroid medicine and not start IV levothyroxine until 5 days. Tobacco abuse Declined nicotine patch. Counseled when appropriate. Patient is obtunded at this time to receive any counselling. DVT prophylaxis Not indicated since patient has been started on heparin drip. Code Visit Inpatient E&M: 05659 Init Hosp L3
[2019-03-18 22:38] VITALS: BP 127/94; PULSE 71; RESP 13; O2SAT 94
[2019-03-18 23:28] LABS: Reflex Lactate? Y
--- NOTE | 2019-03-18 23:56 | ART_ITS ---
Reason For Study: cyanotic legs Procedure A bilateral lower extremity continuous wave Doppler with analog waveform analysis and ankle brachial indexes. Left Segmental Pressures Left brachial= 136mmHg. Left posterior tibial artery = 129mmHg. Left dorsalis pedis artery = 116mmHg. Left digit = 95 mmHg. The left dorsalis pedis waveforms are triphasic. The left posterior tibial artery waveforms are triphasic. Right Segmental Pressures Right posterior tibial artery = 121mmHg. Right dorsalis pedis artery = 129mmHg. Right digit = 71 mmHg. The right dorsalis pedis waveforms are triphasic. The right posterior tibial artery waveforms are triphasic. Indices The right ankle brachial index by the dorsalis pedis is .95. The right ankle brachial index by the posterior tibial artery is .89. The right digital-brachial index is .52. The left ankle brachial index by the dorsalis pedis is .85. The left ankle brachial index by the posterior tibial artery is .95. The left digital-brachial index is .7. Interpretation Summary 1. Bilateral normal at rest with triphasic flow and MARIA ELENA 0.95 and 0.95 2. Right mild small vessel disease with DBI0.52. Ordering Physician: Bill Rosen Referring Physician: Brian Thao Performed By: ALEXYS MARTÍNEZ T
[2019-03-18 23:59] VITALS: BMI 53.7
[2019-03-19] VITALS (26 sets, daily range): BP systolic 110–132; BP diastolic 69–81; PULSE 73–88; RESP 12–22; TEMP 36.2–36.7; O2SAT 90–95
--- NOTE | 2019-03-19 00:04 | ED.DCSUM_ITS ---
- ER Visit Summary Date of Service: 03/19/19 Chief Complaint: Fall History of Present Illness: The patient is a [address] Thao. She is a very poor informant. She reports that she fell in the bathroom earlier today when her walker got caught on a poor toilet. EMS came out and she refused transport to the emergency department. However, she reports that she has been unable to get up since that time because her legs are so painful. Patient does report she hit her head. She denies any loss of consciousness. However, she is on Eliquis. She denies any neck or back pain. She reports that she has bilateral leg pain. On the right it is 8 out of 10. On the left that is 10 out of 10. States that it is relieved partially by tramadol. Patient denies any fever or chills. She reports she has had a cough for the past 2 days is productive of [place] sputum without blood. She reports that she is nauseated from the antibiotic that she is on for cellulitis. She states that she has been on this for 3 days. She does not know the name of this. She reports that the cellulitis is to her legs. Patient complains of generalized weakness as well. Patient's legs are clearly mottled bilaterally. She reports that it is been this way for months. Her family reports that this is accurate. Physical Examination: Vitals: 97.5, 120/83, 79, 22, 94% on 4 L nasal cannula which is her home O2.. General: Well-nourished and well-developed. Head: Normocephalic atraumatic. Neck: Supple, no lymphadenopathy. No JVD. Nontender. Cardiovascular: Regular rate and rhythm. 2 out of 6 systolic murmur. Respiratory: No respiratory distress. Clear to auscultation bilaterally. Abdominal: Soft, nontender, nondistended, normal bowel sounds. No guarding, rebound, or peritoneal signs. Back: Nontender. Extremities: 2+ pitting edema of her lower extremities bilaterally. She has m ottling/cyanosis from the knees down bilaterally. However, there is 2 to 3- second capillary refill. I cannot palpate dorsalis pedis pulse. There are 2 ulcers on the anterior right leg. There is no surrounding induration or fluctuance. She has a superficial erosion to the lateral portion of her mid right thigh. There is erythema surrounding this. There is no induration or fluctuance here.. Neurologic: Alert and oriented ?3. Cranial nerves II through XII are intact. Normal strength and sensation. Psych: Normal affect. Test Results: EKG is sinus at 75 with right bundle branch block. Is unchanged from November 2018. Troponin 0 0.034. CPK is 444. ABG shows a pH of 7.304 with a CO2 of 68.2 and a bicarb of 33.9. LFTs show an ALT of 74, AST 120, alk phos 142, total bili 1.3. Chem-7 shows a CO2 of 37 with a BUN of 46, creatinine 2.62, and glucose of 119. Appears that her creatinine is ranged from 1.08?1.59 in 2019. CBC shows an H&H of 17.8 and 63.7, lymphocytes 17, monocytes of 13. Clinical Impression(s) from Imaging Studies Brain CT 03/18/19 18:51 IMPRESSION: No fracture or hemorrhage. Electronically Signed: Nestor Santoro MD at 20:38 EST Tel , Service support , Tibia/Fibula X-Ray 03/18/19 18:53 IMPRESSION: No fractures or osteolytic lesions are seen. Electronically Signed: Nestor Santoro MD at 21:04 EST Tel , Service support , Tibia/Fibula X-Ray 03/18/19 18:53 IMPRESSION: No fractures or osteolytic lesions are seen. Electronically Signed: Nestor Santoro MD at 21:06 EST Tel , Service support , Chest X-Ray 03/18/19 20:20 IMPRESSION: Central vascular congestion. Right basilar alveolar disease. Electronically Signed: Nestor Santoro MD at 21:06 EST Tel , Service support , Emergency Department Course and Treatment: Patient had an IV placed. She was given a liter of normal saline. She was given vancomycin and Zosyn IV. She was given [place] p.o. She was placed on BiPAP. She is resting more comfortably. Treatment Plan: Patient was discussed with Dr. Rosen. She will be admitted to the hospital for further evaluation and treatment. Disposition: Admitted in improved, but serious condition. Impression: 1. Fall. 2. Coagulopathy on Eliquis. 3. Acute kidney injury. 4. Ulcers right leg. 5. Mottling to legs bilaterally, chronic. 6. Hypercapnic respiratory failure on BiPAP. 7. Critical care time 33 minutes. This note was generated with [employer] dictation software. It may contain incorrect words, spelling, and punctuation that were not noted in review of the chart prior to signing ED Disposition - Plan for ED Patient: Disposition: Acute Care [facility]
[2019-03-19 00:11] LABS: Lactic Acid 1.8 mmol/L (0.4-1.9)
[2019-03-19] MEDS: 0.9% Normal Saline 1,000 ML 100 ML IV (00:53)
[2019-03-19 01:00] LABS: Partial Thromboplast Time 30.7 Seconds (24.1-36.2)
[2019-03-19 01:41] LABS: Allen Test POS; Blood Gas Specimen Type ART; SITE L RADIAL
[2019-03-19] MEDS: Heparin Injection (Vial) 5,000 UNIT/ML VIAL 12000 UNIT IV (01:41)
[2019-03-19 01:42] LABS: O2 Delivery Device Nasal Can; Time Given 1915
[2019-03-19 01:43] LABS: Base Excess 10 mmol/L (-2 to +2); Bicarbonate 35.6 mmol/L (22-26); PO2 63 mmHG (75-100); SO2 89 % (95-99); Total Carbon Dioxide 38 mmol/L; pCO2 68.7 mmHg (35-45); pH 7.32 (7.35-7.45)
[2019-03-19] MEDS: MethylPREDNISolone 125 MG/2 ML Vial IV (01:46)
[2019-03-19] MEDS: HEPARIN/D5w 25,000 UNITS 25,000 UNITS/250 ML IV.SOLN. 19 UNITS IV (01:49)
[2019-03-19] MEDS: 0.9% Saline Lock 10 ML Syringe IV ×4 (01:49→22:00)
--- NOTE | 2019-03-19 01:49 | CPS ---
Critical PCO2 result given to/read by Dr. Parker in ED
--- NOTE | 2019-03-19 02:16 | NURSING ---
Patient refusing to answer admission questions, being difficult.
[2019-03-19] MEDS: Nystatin Powder 15gm Bottle 1 APPLIC TOPICAL ×3 (05:58→22:12)
[2019-03-19 06:06] LABS: Allen Test POS; Base Excess 9 mmol/L (-2 to +2); Bicarbonate 34.7 mmol/L (22-26); Blood Gas Specimen Type ART; EPAP 8; FI02 40; IPAP 13; PO2 63 mmHG (75-100); RR 12; SITE L Radial; SO2 89 % (95-99); Time Given 555; Total Carbon Dioxide 37 mmol/L; pCO2 66.2 mmHg (35-45); pH 7.33 (7.35-7.45)
[2019-03-19 06:52] LABS: Amphetamine Urine VISTA NEGATIVE (<1000 ng/mL); Barbiturate Urine VISTA NEGATIVE (< 200 ng/mL); Benzodiazepine Urine VISTA NEGATIVE (< 200 ng/mL); Cocaine Urine VISTA NEGATIVE (< 300 ng/mL); Ecstacy Urine VISTA NEGATIVE (< 500 ng/mL); Methadone Urine VISTA NEGATIVE (< 300 ng/mL); PCP Urine VISTA NEGATIVE (< 25 ng/mL); THC Urine VISTA NEGATIVE (< 50 ng/mL); Vista UDS pH Range 5
[2019-03-19] MEDS: Ipratropium/Albuterol Sulfate 3 ML AMPUL.NEB INHALATION ×5 (06:52→23:24)
--- NOTE | 2019-03-19 08:16 | PCM.PROGNOTE ---
Subjective: Chief complaint: Follow-up after admission for acute on chronic hypoxic and hypercapnic respiratory failure, encephalopathy, acute kidney injury on top of stage III chronic kidney disease and probable right leg cellulitis. Patient seen and examined. She is on BiPAP, sleepy. She is easily arousable, answering questions appropriately. She complained of right leg pain. Denied chest pain or shortness of breath. Denied fever or chills. Denied abdominal pain, nausea or vomiting. She is afebrile, blood pressure and heart rate are stable, she is on BiPAP. - Physical Exam Vitals/I&O's: Vital Signs Temp Pulse Resp BP Pulse Ox 97.7 F L 86 20 H 132/75 H 94 03/19/19 06:10 03/19/19 07:05 03/19/19 07:05 03/19/19 06:10 03/19/19 06:10 Oxygen Flow Rate (L/min) 4 Oxygen Delivery Method Bi-pap Weight: 332 lb 14.368 oz Body Mass Index (BMI) 53.7 Intake and Output for Last 24 Hours 03/17/19 03/18/19 03/19/19 23:59 23:59 23:59 Intake Total 640 / 640 Output Total 500 / 500 Balance 640 / 640 -500 / -500 General: Alert, Oriented x3, Cooperative, No apparent distress, - - Sleepy, easily arousable. HEENT: Atraumatic, PERRLA, EOMI, Normocephalic Oral: Moist Mucosa, No Gingival or Mucosal Lesions/ Ulcerations Neck: Supple, No JVD, Negative Carotid Bruits, Trachea Midline, Thyroid Normal Size and Texture Lungs: Clear to auscultation, No rhonchi, No wheeze, No rales, Diminished, Short of Breath, - - Decreased breath sounds bilateral, otherwise clear. Cardiovascular: Regular rate, Regular Rhythm, Normal S1, Normal S2, PMI Normal Abdomen: Bowel Sounds Present, Soft, Non Tender, Non-Distended, No Hepato-splenomegaly, Obese Extremities: No clubbing, No cyanosis, Edema, - - Chronic bilateral lymphedema, dry skin. Right leg: Erythema and swelling on the lower one half of the right leg, 2 healing ulcers on the right landa. Skin: No rashes, Ulcer/ Wound Lymphatic: No Cervical, Supraclavicular, or Inguinal Adenopathy Neurological: Cranial nerves II-XII grossly intact, Neuro grossly intact Psych/Mental Status: Appropriate, Flat Affect Laboratory Results 03/18/19 00:44: APTT 30.7 03/18/19 19:15: WBC 7.2, RBC 7.28 H, Hgb 17.8 H, Hct 63.7 H, MCV 87.5, MCH 24.5 L, MCHC 27.9 L, RDW Std Deviation 82.7 H, RDW Coeff of [place]tran 26.4 H, Plt Count 220, MPV 9.5, Immature Gran % (Auto) 0.400, Neut % (Auto) 67.1, Lymph % (Auto) 16.8 L, [place] % (Auto) 12.7 H, Eos % (Auto) 2.2, Baso % (Auto) 0.8, Absolute Neuts (auto) 4.8, Absolute Lymphs (auto) 1.20, Nucleated RBC % 0.4, Differential Comment SCANNED 03/18/19 19:15: Sodium 138, Potassium 5.0, Chloride 98, Carbon Dioxide 37.0 H, Anion Gap 3 L, BUN 46 H, Creatinine 2.62 H, Estim Creat Clear Calc 23.59, Est GFR (MDRD) Af Amer 24 L, Est GFR (MDRD) Non-Af 20 L, BUN/Creatinine Ratio 17.6, Glucose 119 H, Calcium 9.8, Total Bilirubin 1.30 H, AST 120 H, ALT 74 H, Alkaline Phosphatase 142 H, Troponin I 0.034, Total Protein 6.8, Albumin 3.0 L, Globulin 3.8, Albumin/Globulin Ratio 0.8 L 03/18/19 19:15: Lactic Acid 2.1 H* 03/18/19 19:15: Total Creatine Kinase 444 H 03/18/19 19:15: Specimen Type ART, Sample Site L RADIAL, pH 7.32 L, Bicarbonate Actual 35.6 H, POC Total CO2 38, Base Excess 10 H, O2 Saturation 89 L, ABG pCO2 68.7 H*, ABG pO2 63 L, Casimiro Test POS, O2 Delivery Device Nasal Can, Liter Flow 4.0, Vent Mode TNP, Blood Gas Notified Whom ED , Blood Gas Notified Time 191403/18/19 20:00: Urine Color Yellow, Urine Clarity Clear, Urine pH 5.0, Ur Specific [place] 1.020, Urine Protein 100 H, Urine Glucose (UA) Normal, Urine Ketones 5 H, Urine Occult Blood Negative, Urine Nitrite Negative, Urine Bilirubin 1 H, Urine Urobilinogen 8 H, Ur Leukocyte Esterase 25 H, Urine RBC 0 SEEN, Urine WBC 0-5 SEEN, Ur Squamous Epith Cells 0 SEEN, Urine Bacteria 0 SEEN, Hyaline Casts 10-25 SEEN, Urine Mucus 0 SEEN 03/18/19 23:43: Lactic Acid 1.8 03/19/19 05:58: Specimen Type ART, Sample Site L Radial, pH 7.33 L, Bicarbonate Actual 34.7 H, POC Total CO2 37, Base Excess 9 H, O2 Saturation 89 L, O2 % 40, ABG pCO2 66.2 H, ABG pO2 63 L, Casimiro Test POS, Respiration Rate 12, O2 Delivery Device Bi / C PAP, EPAP 8, IPAP 13, Blood Gas Notified Whom CARLYN BONILLA, Blood Gas Notified Time 555 03/19/19 06:20: Urine Opiates Screen POSITIVE H, Urine Methadone Screen NEGATIVE, Ur Barbiturates Screen NEGATIVE, Ur Phencyclidine Scrn NEGATIVE, Ur Amphetamines Screen NEGATIVE, U Methamphetamin-MDMA NEGATIVE, U Benzodiazepines Scrn NEGATIVE, Urine Cocaine Screen NEGATIVE, U Cannabinoids Screen NEGATIVE, Ur Drug Screen Comment Clinical Impression(s) from Imaging Studies Brain CT 03/18/19 18:51 IMPRESSION: No fracture or hemorrhage. Electronically Signed: Nestor Santoro MD at 20:38 EST Tel , Service support , Tibia/Fibula X-Ray 03/18/19 18:53 IMPRESSION: No fractures or osteolytic lesions are seen. Electronically Signed: Nestor Santoro MD at 21:04 EST Tel , Service support , Tibia/Fibula X-Ray 03/18/19 18:53 IMPRESSION: No fractures or osteolytic lesions are seen. Electronically Signed: Nestor Santoro MD at 21:06 EST Tel , Service support , Chest X-Ray 03/18/19 20:20 IMPRESSION: Central vascular congestion. Right basilar alveolar disease. Electronically Signed: Nestor Santoro MD at 21:06 EST Tel , Service support , Current Medications Albuterol Sulfate (Ventolin Aerosols) 2.5 mg INHALATION Q2H PRN PRN PRN Reason: SOB/Wheezing Albuterol/Ipratropium (Duoneb) 3 ml INHALATION Q4H.RT [facility] Last Admin: 03/19/19 06:52 Dose: 3 ml Documented by: Apixaban (Eliquis) 5 mg PO 0800,1999 [facility] Aspirin (Aspirin, Baby) 81 mg PO DAILY [facility] Atorvastatin Calcium (Lipitor) 40 mg PO QHS [facility] Famotidine (Pepcid) 20 mg PO QHS PRN PRN Reason: gerd Folic Acid (Folic Acid) 1 mg PO DAILY [facility] Glucagon () 1 mg IM .X1 PRN PRN Reason: Hypoglycemia Heparin Sodium (Porcine) (Heparin Na) 0 unit IV UD PRN; Protocol Sodium Chloride () 1,000 mls @ 75 mls/hr IV .[id number] [facility] Stop: 03/19/19 13:15 Last Admin: 03/19/19 00:53 Dose: 100 mls/hr Documented by: Sodium Chloride () 250 mls @ 15 mls/hr IV .[id number] PRN PRN Reason: Additional IVPB Infusion Labetalol HCl (Trandate) 10 mg IV Q4H PRN PRN PRN Reason: SBP > 160 Levothyroxine Sodium (Synthroid) 25 mcg PO DAILY [facility] Melatonin (Melatonin) 3 mg PO QHS [facility] Methylprednisolone (Solu-Medrol) 40 mg IV Q8 [facility] Metoprolol Tartrate (Lopressor (Beta Garrett)) 25 mg PO BID [facility] Non-Formulary Medication (Venlafaxine Hcl [Venlafaxine Hcl Er]) 150 mg PO DAILY [facility] Nystatin (Mycostatin Powder) 1 applic TOPICAL TID [facility]; Protocol Last Admin: 03/19/19 05:58 Dose: 1 applicatio Documented by: Ondansetron HCl (Zofran) 4 mg IV Q8H PRN PRN PRN Reason: NAUSEA/VOMITING Oxybutynin Chloride (Ditropan) 5 mg PO DAILY [facility] Senna/Docusate Sodium (Senokot-S, Cinda-Colace) tablet PO BID PRN PRN PRN Reason: Constipation Sodium Chloride () 10 - 40 ml IV UD PRN PRN Reason: SALINE FLUSH Last Admin: 03/19/19 01:49 Dose: 10 ml Documented by: Medical Necessity - Tobacco Use Smoking Status: Current every day smoker Tobacco Use: Cigarettes Assessment/Plan This is a 53 years old female patient presented to the emergency room because of fall and difficulty ambulating, found to have acute on chronic hypoxic and hypercapnic respiratory failure attributed to probable COPD exacerbation as well as probable right leg cellulitis and also found to have acute kidney injury on top of stage III chronic kidney disease. #1 acute on chronic hypoxic and hypercapnic respiratory failure: Chest x-ray revealed cardiomegaly, obliteration of the left costophrenic angle, haziness on the right base which is chronic, no acute changes. Repeat ABG from this morning revealed pH of 7.33, PCO2 of 66 and PO2 of 63. she is on IV steroids, BiPAP and bronchodilators. Blood and urine cultures are pending. Lactic acid was 2.1 likely because of hypoxia and hypercapnia, came down to 1.8 with IV fluids. I doubt evidence of infection or severe sepsis. Plan to continue same treatment, pulmonology consult, BiPAP breaks as tolerated, start diet, resume home medications. #2 probable COPD exacerbation: She is on IV steroids and bronchodilators as above. She is on BiPAP. ABG reviewed as above. Plan to continue same treatment. #3 acute kidney injury on top of stage III chronic kidney disease: Baseline creatinine has been around 1.1 to 1.4 mg/dL. Admission creatinine is 2.62. Plan: Decrease IV fluids down to 75 cc/h, hold nephrotoxic drugs, input output chart to avoid volume overload, repeat BMP tomorrow morning. #4 probable right leg cellulitis: Patient does have chronic bilateral leg lymphedema, stasis dermatitis. On the lower half of the right leg, there is 2 healing ulcers, dry wound drainage, erythema around. Patient has been following with wound care center, has been on Keflex and upset recently. Plan: DC IV vancomycin and Nasalide, start IV Unasyn empirically, MRSA nasal screen, MRSA wound DNA. #5 acute encephalopathy: Probably due to hypercapnia and hypoxia. CT scan brain without acute findings. Today, patient is sleepy but she is easily arousable, answering questions appropriately, no focal deficit. #6 hypertension: Blood pressure stable, continue metoprolol, hold losartan because of worsening kidney function. #7 chronic diastolic CHF: Clinically stable, compensated. Patient is on gentle IV fluids as above. Lasix and losartan held. She is on beta-blockers. #8 history of pulmonary emboli: Resume Eliquis. #9 DVT prophylaxis: Resume Eliquis, DC IV heparin drip. This note was generated with [employer] dictation software. It may contain incorrect words, spelling, and punctuation that were not noted in checking the note before signing. Code Visit Inpatient E&M: 37725 Subs Hosp L2
[2019-03-19] MEDS: APIXABAN 5 MG TABLET PO ×2 (10:27→22:10)
[2019-03-19] MEDS: Tolterodine Tartrate 2 MG CAP.SA PO (10:27)
[2019-03-19] MEDS: Aspirin 81 MG TAB.CHEW PO (10:27)
[2019-03-19] MEDS: Venlafaxine XR 150 MG Capsule PO (10:27)
[2019-03-19] MEDS: Levothyroxine 25 MCG TABLET PO (10:28)
[2019-03-19] MEDS: Metoprolol Tartrate 25 MG Tablet PO ×2 (10:40→22:10)
--- NOTE | 2019-03-19 11:04 | NURSING ---
Spoke with patient's sister, Randall Kari, with patient's permission. Patient's sister is concerned with patient's safety at home. Per sister patient lives alone and is having frequent falls. Patient's sister states patient is having difficulty transferring and dressing/bathing. Transporting patient to and from appointments is difficult. Unsure if patient is agreeable to placement. Sister, Randall, asked for updates. @ [phone].
--- NOTE | 2019-03-19 11:09 | CASEMGMT ---
FLOR called [facility] as patient is active with waiver program. FLOR was transferred to Kelsie Ozuna. She said she is not the clinical case manager she is the stock supervisor. She told SW patient's Profile Saw Setup Operator is Kellie Sierra. FLOR was given the phone number [phone], however when FLOR called it a recording came on that said not on service. FLOR did let Kelsie know about patient's admission. Stephanie BOUDREAUX MSW
--- NOTE | 2019-03-19 11:33 | CASEMGMT ---
Addendum entered by Prerna Huggins 03/19/19 14:12: Pt still sleeping on bipap at this time. Will attempt again later. Nikolas FLOYD CM Original Note: This RN CM to room to complete CM assessment and pt is sleeping on bipap at this time. Will attempt again later. Nikolas FLOYD CM
--- NOTE | 2019-03-19 12:07 | NURSING ---
wound photo: right landa
--- NOTE | 2019-03-19 12:22 | PCM.CONS.PUL ---
Problem List (1) Acute on chronic respiratory failure with hypoxemia Status: Chronic (2) Peripheral artery disease Status: Chronic (3) Ulcer of right leg Status: Chronic Qualifiers: Non-pressure ulcer stage: limited to breakdown of skin Qualified Code(s): L97.911 - Non-pressure chronic ulcer of unspecified part of right lower leg limited to breakdown of skin (4) COPD (chronic obstructive pulmonary disease) Status: Chronic Qualifiers: COPD type: unspecified COPD Qualified Code(s): J44.9 - Chronic obstructive pulmonary disease, unspecified (5) MANUEL (obstructive sleep apnea) Status: Chronic (6) Cor pulmonale Status: Chronic (7) Chronic diastolic CHF (congestive heart failure) Status: Chronic (8) Right bundle branch block (RBBB) Status: Chronic (9) Secondary pulmonary arterial hypertension Status: Chronic (10) Nicotine dependence Status: Chronic (11) Essential (primary) hypertension Status: Chronic (12) Morbid obesity with BMI of 60.0-69.9, adult Status: Chronic Reason for Consult Date of Consultation: 03/19/19 Reason for Consultation: Respiratory failure History of Present Illness: The patient is a 53 year old F, with past medical history listed below and seen by me on previous hospitalizations, who presented to [facility] on 03/19/2019 secondary to a fall at home. Patient reportedly had caught her walker on the toilet and fell to the floor. Patient had initially refused transport to the emergency department, but was unable to get up secondary to leg pain. Patient did report that she had hit her head, but denied any loss of consciousness. Patient is on Eliquis at baseline secondary to a history of PE. Patient reported significant pain in the ER. In the ER, patient denied any fevers or chills. Patient does have a cough productive of gaona sputum without any blood. Patient reportedly was taking some antibiotics for possible cellulitis and was dealing with some nausea. Patient had also reported some generalized weakness. On presentation to the ER, patient was noted to be 94% on her baseline 4 L nasal cannula oxygen. Patient was also noted to have 2+ pitting edema bilaterally with mottling from the knees down. Initial work-up from a laboratory standpoint did show some mild respiratory failure with a pH of 7.3, CO2 of 68 and a bicarb of 33. Chemistry shows an elevated creatinine at 2.62, which is up from her baseline of 1.6. Patient also noted to be polycythemic at 17.8 with significant lymphocytosis. Imaging work-up was unremarkable for fracture or intracranial pathology. Patient was admitted to the PCU and placed on BiPAP therapy. Patient was also given a liter of normal saline, vancomycin and Zosyn. Patient was on BiPAP therapy during my evaluation. Patient is a very poor historian. Patient unable to provide much history beyond what the ER had reported. Patient did report significant pain of the lower extremities. Patient was unable to give a clear answer as to duration of respiratory symptoms. Patient did state that she was not on the floor for an extended period of time. Unable to obtain a full review of systems secondary to mental status. Patient has been seen by myself in the hospital and is followed up once with nurse practitioner in the office, but has not been seen by me as an outpatient. Patient had pulmonary function test ordered, but has not followed through with this testing. Past Medical History Past Medical History (Chronic Problems): Chronic Problems (Last Reviewed 03/19/19 @ 05:33 by Bill Rosen MD) Acute on chronic respiratory failure with hypoxemia (Chronic) Peripheral artery disease (Chronic) Ulcer of right leg (Chronic) COPD (chronic obstructive pulmonary disease) (Chronic) MANUEL (obstructive sleep apnea) (Chronic) Cor pulmonale (Chronic) Respiratory failure with hypoxia and hypercapnia (Chronic) Chronic diastolic CHF (congestive heart failure) (Chronic) Pulmonary embolism (Chronic) remote history-on anticoagulants Right bundle branch block (RBBB) (Chronic) Secondary pulmonary arterial hypertension (Chronic) Nicotine dependence (Chronic) Essential (primary) hypertension (Chronic) Morbid obesity with BMI of 60.0-69.9, adult (Chronic) Medical History: Medical History (Last Reviewed 03/19/19 @ 05:33 by Bill Rosen MD) Pulmonary embolism (Chronic) I26.99 remote history-on anticoagulants Right bundle branch block (RBBB) (Chronic) I45.10 Secondary pulmonary arterial hypertension (Chronic) I27.21 Nicotine dependence (Chronic) F17.200 Essential (primary) hypertension (Chronic) I10 Morbid obesity with BMI of 60.0-69.9, adult (Chronic) E66.01, Z68.44 COPD (chronic obstructive pulmonary disease) J44.9 Chronic kidney disease N18.9 Hypothyroidism E03.9 Obstructive sleep apnea G47.33 Transaminitis R74.0 Sleep apnea syndrome (Inactive) G47.30 Allergies oxycodone [Oxycodone] Allergy (Verified 03/18/19 18:24) Rash oxycodone HCl [From Percodan] Allergy (Verified 03/18/19 18:24) Hives oxycodone terephthalate [From Percodan] Allergy (Verified 03/18/19 18:24) Hives Sulfa (Sulfonamide Antibiotics) Allergy (Verified 03/18/19 18:24) Hives cefuroxime Adverse Reaction (Verified 03/18/19 18:24) Unknown Cephalosporins Adverse Reaction (Verified 03/18/19 18:24) Vomiting meperidine HCl [From Demerol] Adverse Reaction (Verified 03/18/19 18:24) Vomiting NSAIDS (Non-Steroidal Anti-Inflamma Adverse Reaction (Verified 03/18/19 18:24) Unknown Home Medications: Ambulatory Orders Medication Instructions Recorded Cholecalciferol (Vitamin D3) 50,000 unit PO TH 11/28/16 [Vitamin D3] Folic Acid 1 mg PO DAILY 11/28/16 Gabapentin [Neurontin] 300 mg PO 4X/DAY 11/28/16 Levothyroxine [Synthroid] 25 mcg PO DAILY 11/28/16 Oxybutynin [Ditropan] 5 mg PO DAILY 11/28/16 Venlafaxine HCl [Venlafaxine HCl 150 mg PO DAILY 11/28/16 ER] Hydroxyzine HCl 10 mg PO TID 06/13/17 Atorvastatin Calcium [Lipitor] 40 mg PO QHS 01/07/18 Melatonin 3 mg PO QHS #30 tab 03/19/18 Apixaban [Eliquis] 5 mg PO 0800,199903/21/18 Aspirin [Aspirin, Baby] 81 mg PO DAILY 03/21/18 Losartan Potassium 25 mg PO DAILY 03/21/18 Metoprolol Tartrate [Lopressor 25 mg PO BID 03/21/18 (beta garrett)] Allopurinol 100 mg PO DAILY 08/20/18 Famotidine 20 mg PO QHS PRN 08/20/18 Acetaminophen [Tylenol Tablet] 650 mg PO Q6H PRN PRN tab 08/29/18 Albuterol Aerosols [Ventolin 2.5 mg INHALATION Q2H PRN PRN 08/29/18 Aerosols] vial.neb. Senna/Docusate Sodium [Senokot-S] 2 tab PO BID PRN PRN tab 08/29/18 Sodium Chloride 0.65% [[place] Nasal 1 spray NASAL BID PRN PRN 08/29/18 [place]] spray.btl Ipratropium/Albuterol Sulfate 3 ml INHALATION Q4HWA.RT 08/31/18 [Duoneb] Multivitamin with Iron [Tab-A-Jessica 1 ea PO DAILY 08/31/18 with Iron] Nystatin Powder [Mycostatin Powder] 1 applic TOPICAL TID 08/31/18 Cephalexin [Keflex] 500 mg PO 4X/DAY #40 cap 03/04/19 Furosemide [Lasix] 40 mg PO BID #28 tab 03/04/19 Ondansetron [Zofran Odt] 4 - 8 mg PO Q8H PRN PRN #20 tab 03/04/19 Albuterol Sulfate [Ventolin Hfa] 2 puff IH Q4H PRN PRN 03/18/19 Budesonide/Formoterol 160/4.5 1 puff IH BID 03/18/19 [Symbicort 160/4.5 Mcg Inhaler (SP)] Doxycycline Hyclate 100 mg PO DAILY 03/18/19 traMADol [Ultram] 50 mg PO TID PRN 03/18/19 Surgical History: Surgical History (Last Reviewed 03/19/19 @ 05:22 by Bill Rosen MD) History of left heart catheterization Onset Date: 06/16/17 Z98.890 Hx of cholecystectomy Z90.49 Surgical History: cholecystectomy, - - 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 Maternal History Items: - - Patient denies knowledge of maternal medical history. Review of Systems Unable to obtain accurate/complete ROS d/t: Mental status Objective: CT scan of the chest from 08/28/2018 was personally reviewed. This did show significantly enlarged pulmonary artery that was larger in diameter than the aorta. Patient did not have any significant emphysematous changes, but there was significant motion artifact. Patient did have a 3.5 x 2.6 cm hypodense rounded mass in the right lower lobe posteriorly that appears unchanged compared to previous Chest x-ray from this hospitalization shows pulmonary congestion with generous randolph and possible right basilar atelectasis. Patient's last echocardiogram was completed in November 2018 showing an EF of 55% with stage I diastolic dysfunction, moderately dilated RV with mild reported systolic dysfunction. Patient had moderately enlarged atria and a reported pulmonary artery pressure of 35 mmHg. No significant valvular pathology was reported. No previous pulmonary function tests or PSG's are available for review. - Physical Exam Vitals/I&O's: Vital Signs Temp Pulse Resp BP Pulse Ox 36.7 C 88 22 H 126/81 H 93 03/19/19 10:35 03/19/19 11:13 03/19/19 11:13 03/19/19 10:35 03/19/19 11:13 Oxygen Flow Rate (L/min) 6 Oxygen Delivery Method Nasal Cannula Weight: 151 kg Body Mass Index (BMI) 53.7 Intake and Output for Last 24 Hours 03/17/19 03/18/19 03/19/19 23:59 23:59 23:59 Intake Total 640 / 640 1130.29 / 1130.29 Output Total 500 / 500 Balance 640 / 640 630.29 / 630.29 General: Confused, Disoriented, Lethargic, Non-Cooperative, - - On BiPAP therapy. Good synchrony noted. HEENT: Atraumatic, PERRLA, EOMI, Normocephalic, - - Slight scleral injection without icterus Oral: No Gingival or Mucosal Lesions/ Ulcerations, Dry Mucosa Neck: Supple, No Nodes, Trachea Midline, - - Difficult to assess JVD secondary to body habitus and BiPAP therapy Lungs: No rhonchi, No wheeze, No rales, Diminished, - - Symmetric expansion. No dullness to percussion. Cardiovascular: Regular rate, Regular Rhythm, Normal S1, Normal S2, Murmur - Grade 2 out of 6 diastolic murmur at the left sternal border, No rub noted, No Gallop Abdomen: Bowel Sounds Present, Soft, Non Tender, Non-Distended, Obese Extremities: No clubbing, No cyanosis, Diminished Peripheral Pulses, Edema - 1+ bilateral lower extremities Skin: Ulcer/ Wound - 2 superficial ulcers with granulation tissue noted on the right leg. No exudate or fluctuance appreciated, - - Venous stasis changes of bilateral lower extremities. Musculoskeletal: Tenderness - Palpation bilateral lower extremities Lymphatic: No Cervical, Supraclavicular, or Inguinal Adenopathy Neurological: Cranial nerves II-XII grossly intact, Neuro grossly intact, Motor Exam 5/5 strength throughout Psych/Mental Status: Flat Affect Laboratory Results 03/18/19 00:44: APTT 30.7 03/18/19 19:15: WBC 7.2, RBC 7.28 H, Hgb 17.8 H, Hct 63.7 H, MCV 87.5, MCH 24.5 L, MCHC 27.9 L, RDW Std Deviation 82.7 H, RDW Coeff of Beltran 26.4 H, Plt Count 220, MPV 9.5, Immature Gran % (Auto) 0.400, Neut % (Auto) 67.1, Lymph % (Auto) 16.8 L, Baker % (Auto) 12.7 H, Eos % (Auto) 2.2, Baso % (Auto) 0.8, Absolute Neuts (auto) 4.8, Absolute Lymphs (auto) 1.20, Nucleated RBC % 0.4, Differential Comment SCANNED 03/18/19 19:15: Sodium 138, Potassium 5.0, Chloride 98, Carbon Dioxide 37.0 H, Anion Gap 3 L, BUN 46 H, Creatinine 2.62 H, Estim Creat Clear Calc 23.59, Est GFR (MDRD) Af Amer 24 L, Est GFR (MDRD) Non-Af 20 L, BUN/Creatinine Ratio 17.6, Glucose 119 H, Calcium 9.8, Total Bilirubin 1.30 H, AST 120 H, ALT 74 H, Alkaline Phosphatase 142 H, Troponin I 0.034, Total Protein 6.8, Albumin 3.0 L, Globulin 3.8, Albumin/Globulin Ratio 0.8 L 03/18/19 19:15: Lactic Acid 2.1 H* 03/18/19 19:15: Total Creatine Kinase 444 H 03/18/19 19:15: Specimen Type ART, Sample Site L RADIAL, pH 7.32 L, Bicarbonate Actual 35.6 H, POC Total CO2 38, Base Excess 10 H, O2 Saturation 89 L, ABG pCO2 68.7 H*, ABG pO2 63 L, Casimiro Test POS, O2 Delivery Device Nasal Can, Liter Flow 4.0, Vent Mode TNP, Blood Gas Notified Whom ED , Blood Gas Notified Time 19103/18/19 20:00: Urine Color Yellow, Urine Clarity Clear, Urine pH 5.0, Ur Specific [employer] 1.020, Urine Protein 100 H, Urine Glucose (UA) Normal, Urine Ketones 5 H, Urine Occult Blood Negative, Urine Nitrite Negative, Urine Bilirubin 1 H, Urine Urobilinogen 8 H, Ur Leukocyte Esterase 25 H, Urine RBC 0 SEEN, Urine WBC 0-5 SEEN, Ur Squamous Epith Cells 0 SEEN, Urine Bacteria 0 SEEN, Hyaline Casts 10-25 SEEN, Urine Mucus 0 SEEN 03/18/19 23:43: Lactic Acid 1.8 03/19/19 05:58: Specimen Type ART, Sample Site L Radial, pH 7.33 L, Bicarbonate Actual 34.7 H, POC Total CO2 37, Base Excess 9 H, O2 Saturation 89 L, O2 % 40, ABG pCO2 66.2 H, ABG pO2 63 L, Casimiro Test POS, Respiration Rate 12, O2 Delivery Device Bi / C PAP, EPAP 8, IPAP 13, Blood Gas Notified Whom HOSP , Blood Gas Notified Time 555 03/19/19 06:20: Urine Opiates Screen POSITIVE H, Urine Methadone Screen NEGATIVE, Ur Barbiturates Screen NEGATIVE, Ur Phencyclidine Scrn NEGATIVE, Ur Amphetamines Screen NEGATIVE, U Methamphetamin-MDMA NEGATIVE, U Benzodiazepines Scrn NEGATIVE, Urine Cocaine Screen NEGATIVE, U Cannabinoids Screen NEGATIVE, Ur Drug Screen Comment 03/19/19 09:00: S.aureus Protein A PCR Pending, MRSA (PCR) Pending Current Medications Albuterol Sulfate (Ventolin Aerosols) 2.5 mg INHALATION Q2H PRN PRN PRN Reason: SOB/Wheezing Albuterol/Ipratropium (Duoneb) 3 ml INHALATION Q4H.RT [facility] Last Admin: 03/19/19 11:04 Dose: 3 ml Documented by: Apixaban (Eliquis) 5 mg PO 0800,1999 [facility] Last Admin: 03/19/19 10:27 Dose: 5 mg Documented by: Aspirin (Aspirin, Baby) 81 mg PO DAILY@0800 [facility] Last Admin: 03/19/19 10:27 Dose: 81 mg Documented by: Atorvastatin Calcium (Lipitor) 40 mg PO QHS [facility] Famotidine (Pepcid) 20 mg PO QHS PRN PRN PRN Reason: gerd Folic Acid (Folic Acid) 1 mg PO DAILY@0800 [facility] Glucagon () 1 mg IM .X1 PRN PRN Reason: Hypoglycemia Heparin Sodium (Porcine) (Heparin Na) 0 unit IV UD PRN; Protocol Sodium Chloride () 1,000 mls @ 75 mls/hr IV .[id number] [facility] Stop: 03/19/19 13:15 Last Infusion: 03/19/19 11:06 Dose: 75 mls/hr Documented by: Sodium Chloride () 250 mls @ 15 mls/hr IV .[id number] PRN PRN Reason: Additional IVPB Infusion Ampicillin Sodium/Sulbactam (Sodium 3 gm/ Sodium Chloride) 112 mls @ 150 mls/hr IV Q12 [facility] Last Infusion: 03/19/19 11:06 Dose: Infused Documented by: Labetalol HCl (Trandate) 10 mg IV Q4H PRN PRN PRN Reason: SBP > 160 Levothyroxine Sodium (Synthroid) 25 mcg PO DAILY@0600 [facility] Last Admin: 03/19/19 10:28 Dose: 25 mcg Documented by: Melatonin (Melatonin) 3 mg PO QHS [facility] Methylprednisolone (Solu-Medrol) 40 mg IV Q8 [facility] Last Admin: 03/19/19 10:29 Dose: 40 mg Documented by: Metoprolol Tartrate (Lopressor (Beta Garrett)) 25 mg PO BID [facility] Last Admin: 03/19/19 10:40 Dose: 25 mg Documented by: Nystatin (Mycostatin Powder) 1 applic TOPICAL TID [facility]; Protocol Last Admin: 03/19/19 05:58 Dose: 1 applicatio Documented by: Ondansetron HCl (Zofran) 4 mg IV Q8H PRN PRN PRN Reason: NAUSEA/VOMITING Senna/Docusate Sodium (Senokot-S, Cinda-Colace) 2 tablet PO BID PRN PRN PRN Reason: Constipation Sodium Chloride () 10 - 40 ml IV UD PRN PRN Reason: SALINE FLUSH Last Admin: 03/19/19 10:29 Dose: 20 ml Documented by: Tolterodine Tartrate (Detrol La) 2 mg PO DAILY [facility] Last Admin: 03/19/19 10:40 Dose: Not Given Documented by: Venlafaxine HCl (Effexor Xr) 150 mg PO DAILY [facility] Last Admin: 03/19/19 10:27 Dose: 150 mg Documented by: Clinical Impression(s) from Imaging Studies Brain CT 03/18/19 18:51 IMPRESSION: No fracture or hemorrhage. Electronically Signed: Nestor Santoro MD at 20:38 EST Tel , Service support , Tibia/Fibula X-Ray 03/18/19 18:53 IMPRESSION: No fractures or osteolytic lesions are seen. Electronically Signed: Nestor Santoro MD at 21:04 EST Tel , Service support , Tibia/Fibula X-Ray 03/18/19 18:53 IMPRESSION: No fractures or osteolytic lesions are seen. Electronically Signed: Nestor Santoro MD at 21:06 EST Tel , Service support , Chest X-Ray 03/18/19 20:20 IMPRESSION: Central vascular congestion. Right basilar alveolar disease. Electronically Signed: Nestor Santoro MD at 21:06 EST Tel , Service support , Assessment/Plan RECOMMENDATIONS: 1. Continue BiPAP as needed for sleep and rescue during the day 2. Oxygen to keep saturations 88 to 94% 3. Reassess mental status clinically 4. Caution with use of narcotics given renal disease and chronic respiratory failure 5. Consider goals of therapy conversation once patient more appropriate IMPRESSIONS: 1. Acute on chronic diastolic congestive heart failure/acute on chronic cor pulmonale Patient was significantly dilated RV in the past. Patient has been likely chronically hypoxic for quite some time given her hemoglobin of 17 and reported cyanosis of the feet. Patient is on 5 L nasal cannula at baseline, but also has significant CO2 retention. Would recommend keeping saturations 88 to 94% to avoid depression of respiratory drive. Poor long-term prognosis without significant change in current habits. Patient does have a history of pulmonary emboli in the past. Will need to address patient's goals of therapy once she is more appropriate. Patient likely is not compliant with BiPAP therapy at home leading to nocturnal hypoxemia that may be leading to polycythemia. 2. Acute on chronic combined respiratory failure Likely a component secondary to #1. Also contributing would be patient's underlying diagnosis of COPD and uncontrolled obstructive sleep apnea. Patient is not compliant with MANUEL therapy and this is likely leading to recurrent hypoxemia and elevation of pulmonary artery pressures. Patient appears to be responding to BiPAP therapy at this time. Patient may have an accumulation of metabolites given renal dysfunction 3. Acute kidney injury on chronic kidney disease stage III Unclear etiology at this time. Patient does have a history of hypertension in the past, so it is likely secondary to hypertension. Patient may also have an element of venous congestion given high pulmonary artery pressures. Urine output appears to be stable at this time. Patient does not appear to be significantly volume depleted at this time. Given RV issues, patient will be very sensitive to volume status. Patient does have some elevated CK, but not at a range that would be expected to impact renal function. 4. Morbid obesity/hypertension/hypothyroidism/history of noncompliance/active tobacco abuse Complicates care, management, recovery and prognosis. Okay to continue with baseline medications. Patient's lower extremities do not appear to be acutely infected on my evaluation. This appears to be more consistent with venous stasis changes. Wound nurse is to evaluate the patient. Code Visit Inpatient E&M: 66900 Init Hosp L3
[2019-03-19 13:37] LABS: M R Staph aureus DNA By PCR Negative (Negative); Probe Check PASS; Specimen Processing Control PASS; Staph aureus DNA By PCR NEGATIVE (Negative)
--- NOTE | 2019-03-19 17:17 | NURSING ---
Patient has removed bipap several times this shift. Patient has been educated about the importance of remaining on bipap. SPO2 drops into 80s-70s when patient is off bipap. Nursing attempting to place patient on NC when patient off bipap. Patient is not compliant. Nursing will continue to monitor and continue to round on patient frequently.
[2019-03-19 20:09] LABS: M R Staph aureus DNA By PCR Negative (Negative); Probe Check PASS; Specimen Processing Control PASS
--- NOTE | 2019-03-19 20:49 | CPS ---
Pt. ripped BiPAP mask off during aerosol tx. Pt. said that she just wanted to be off the BiPAP. FORKL[employer] TR[employer] OPERATOR reinforced teaching of importance of PAP therapy to pt. Pt. said she understands, but wished to remain off the BiPAP at this moment. Will continue to encourage BiPAP therapy tonight. RN aware. Pulse ox was 79% after pt. ripped off mask, upon FORKLIFT TRUCK OPERATOR walking into room.
[2019-03-19] MEDS: Atorvastatin Calcium 40 MG Tablet PO (22:10)
[2019-03-19] MEDS: MELATONIN 3 MG TABLET PO (22:11)
--- NOTE | 2019-03-19 22:31 | NURSING ---
Pt placed on bipap for HS, was frequently removing nasal cannula d/t it burning her nose. Educated and encouraged pt to wear bipap while sleeping, pt agreed to bipap. Tolerated approx five minutes and removed on her own accord. Pt placed on nasal cannula d/t refusing bipap at this time. notified.
[2019-03-20] VITALS (17 sets, daily range): BP systolic 130–145; BP diastolic 75–94; PULSE 74–89; RESP 14–20; TEMP 36.1–36.6; O2SAT 85–94
[2019-03-20] MEDS: Sodium Chloride 0.65% 1 SPRAY SPRAY.BTL NASAL (00:04)
[2019-03-20] MEDS: 0.9% Saline Lock 10 ML Syringe IV ×5 (00:04→20:58)
--- NOTE | 2019-03-20 00:20 | NURSING ---
Pt continues to pull off and refuse nasal cannula at 10L O2 with pulse ox desat to 70's. Nasal spray given to improve nasal comfort without improvement. Po from RT notified and pt placed on venti mask at 50% with pulse ox sat 90%. Will be monitoring for AMS and signs of CO2 retention. No further needs at this time.
[2019-03-20 04:31] LABS: Absolute Lymphocyte Count 0.38 X10^3/uL (0.83-4.51); Absolute Neutrophil Count 4.6 X10^3/uL (2.0-7.7); Basophil# 0.01 X10^3/uL; Basophil% 0.2 % (0-1); Hemoglobin 17.1 g/dL (12.0-15.0); Lymphocyte # 0.38 X10^3/ul (4.0); Lymphocyte % 6.8 % (19-41); Mean Corp Hgb Conc 28.5 g/dL (32-36); Mean Corpuscular Hgb 24.2 pg (27.0-32.0); Mean Corpuscular Volume 85.1 fL (81-99); Mean Platelet Vol. 9.1 fl (6.2-12.0); Monocyte# 0.57 X10^3/uL; Monocyte% 10.2 % (0-10); NRBC Flagged by Analyzer 0.7 % (0-5); Neutrophil # 4.62 X10^3/uL (2.7-7.7); Neutrophil % 82.4 % (47-70); POSITIVE DIFFERENTIAL YES; POSITIVE MORPHOLOGY YES; Platelet Count 186 K/mm3 (150-450); RBC Distribution Width SD 78.7 fl (35.1-43.9); Red Blood Count 7.06 M/mm3 (4.2-5.4); White Blood Count 5.6 K/mm3 (4.4-11.0)
[2019-03-20 04:44] LABS: Differential Indicated SCAN CRITERIA MET; Hematocrit 60.1 % (37-47)
[2019-03-20 05:12] LABS: Anisocytosis 2+; Differential Comment SCANNED
[2019-03-20 05:16] LABS: ALB/GLOB Ratio 0.6 RATIO (0.9-2.4); AST(SGOT) 60 U/L (15-37); Alanine Aminotransfer ALT/SGPT 73 U/L (13-56); Albumin, Serum 2.6 g/dL (3.2-5.0); Alkaline Phosphatase 123 U/L (45-117); Anion Gap 6 (5-15); BUN 43 mg/dL (7-18); BUN/Creat Ratio 22.4 RATIO (10-20); Calcium,Total 9.4 mg/dL (8.5-10.1); Chloride 98 mmol/L (98-107); Creatinine, Serum 1.92 mg/dL (0.55-1.02); EST Glomerular Filtration Rate 29 mL/min (>60); Est Glom Filt Rate - Afr Amer 35 mL/min (>60); Estimated Creatinine Clearance 30.99 ml/min; Glucose 147 mg/dL (74-106); Protein, Total 6.6 g/dL (6.4-8.2); Sodium Level 136 mmol/L (136-145)
[2019-03-20] MEDS: Nystatin Powder 15gm Bottle 1 APPLIC TOPICAL ×3 (05:45→20:50)
[2019-03-20] MEDS: Levothyroxine 25 MCG TABLET PO (05:46)
[2019-03-20] MEDS: Ipratropium/Albuterol Sulfate 3 ML AMPUL.NEB INHALATION ×4 (06:44→20:08)
--- NOTE | 2019-03-20 07:57 | PCM.PROGNOTE ---
Subjective: Chief complaint: Follow-up after admission for acute on chronic hypoxic and hypercapnic respiratory failure, encephalopathy, ANIL on CKD and probable acute on chronic diastolic CHF as well as probable right leg cellulitis. Patient seen and examined. No acute events overnight. Smiling, she is fully alert and awake, oriented x3. She reported significant improvement of her shortness of breath, on Ventimask. Denied any chest pain or palpitation. Denied cough or sputum production. Denied fever or chills. Other vital signs are stable. - Physical Exam Vitals/I&O's: Vital Signs Temp Pulse Resp BP Pulse Ox 97.0 F L 78 16 138/94 H 94 03/20/19 03:55 03/20/19 07:00 03/20/19 03:55 03/20/19 03:55 03/20/19 03:55 Oxygen Flow Rate (L/min) 10 Oxygen Delivery Method Venturi Mask Weight: 332 lb 14.368 oz Body Mass Index (BMI) 53.7 Intake and Output for Last 24 Hours 03/18/19 03/19/19 03/20/19 23:59 23:59 23:59 Intake Total 640 / 640 1843.37 / 1843.37 Output Total 800 / 800 150 / 150 Balance 640 / 640 1043.37 / 1043.37 -150 / -150 General: Alert, Oriented x3, Cooperative, No apparent distress HEENT: Atraumatic, PERRLA, EOMI, Normocephalic Oral: Moist Mucosa, No Gingival or Mucosal Lesions/ Ulcerations Neck: Supple, No JVD, Negative Carotid Bruits, Trachea Midline, Thyroid Normal Size and Texture Lungs: No wheeze, No rales, Diminished, Rhonchi, - - Decreased breath sounds bilateral, scattered rhonchi. Cardiovascular: Regular rate, Regular Rhythm, Normal S1, Normal S2, PMI Normal Abdomen: Bowel Sounds Present, Soft, Non Tender, Non-Distended, No Hepato-splenomegaly, Obese Extremities: No clubbing, No cyanosis, Edema, - - Bilateral lymphedema, stasis dermatitis. Right leg: Erythema and swelling on the lower one half of the right leg, 2 dry ulcers. Skin: No rashes, Ulcer/ Wound Lymphatic: No Cervical, Supraclavicular, or Inguinal Adenopathy Neurological: Cranial nerves II-XII grossly intact, Neuro grossly intact Psych/Mental Status: Normal Affect, Appropriate, Alert and oriented to time, place, person, mood and affect Laboratory Results 03/19/19 09:00: S.aureus Protein A PCR NEGATIVE, MRSA (PCR) Negative 03/19/19 18:34: MRSA (PCR) Negative 03/20/19 04:08: WBC 5.6, RBC 7.06 H, Hgb 17.1 H, Hct 60.1 H, MCV 85.1, MCH 24.2 L, MCHC 28.5 L, RDW Std Deviation 78.7 H, RDW Coeff of Beltran 26.0 H, Plt Count 186, MPV 9.1, Immature Gran % (Auto) 0.400, Neut % (Auto) 82.4 H, Lymph % (Auto) 6.8 L, S[place]ent % (Auto) 10.2 H, Eos % (Auto) 0.0, Baso % (Auto) 0.2, Absolute Neuts (auto) 4.6, Absolute Lymphs (auto) 0.38 L, Nucleated RBC % 0.7, Differential Comment SCANNED, Anisocytosis 2+ 03/20/19 04:08: Sodium 136, Potassium 5.0, Chloride 98, Carbon Dioxide 32.0, Anion Gap 6, BUN 43 H, Creatinine 1.92 H, Estim Creat Clear Calc 30.99, Est GFR (MDRD) Af Amer 35 L, Est GFR (MDRD) Non-Af 29 L, BUN/Creatinine Ratio 22.4 H, Glucose 147 H, Calcium 9.4, Total Bilirubin 1.30 H, AST 60 H, ALT 73 H, Alkaline Phosphatase 123 H, Total Protein 6.6, Albumin 2.6 L, Globulin 4.0, Albumin/Globulin Ratio 0.6 L Current Medications Albuterol Sulfate (Ventolin Aerosols) 2.5 mg INHALATION Q2H PRN PRN PRN Reason: SOB/Wheezing Albuterol/Ipratropium (Duoneb) 3 ml INHALATION Q4H.RT [facility] Last Admin: 03/20/19 06:44 Dose: 3 ml Documented by: Apixaban (Eliquis) 5 mg PO 0800,1999 [facility] Last Admin: 03/19/19 22:10 Dose: 5 mg Documented by: Aspirin (Aspirin, Baby) 81 mg PO DAILY@0800 [facility] Last Admin: 03/19/19 10:27 Dose: 81 mg Documented by: Atorvastatin Calcium (Lipitor) 40 mg PO QHS [facility] Last Admin: 03/19/19 22:10 Dose: 40 mg Documented by: Famotidine (Pepcid) 20 mg PO QHS PRN PRN PRN Reason: gerd Folic Acid (Folic Acid) 1 mg PO DAILY@0800 [facility] Furosemide (Lasix) 40 mg PO BID [facility] Gabapentin (Neurontin) 300 mg PO 4X/DAY [facility] Glucagon () 1 mg IM .X1 PRN PRN Reason: Hypoglycemia Heparin Sodium (Porcine) (Heparin Na) 0 unit IV UD PRN; Protocol Sodium Chloride () 250 mls @ 15 mls/hr IV .[id number] PRN PRN Reason: Additional IVPB Infusion Last Infusion: 03/19/19 23:45 Dose: 0 mls/hr Documented by: Ampicillin Sodium/Sulbactam (Sodium 3 gm/ Sodium Chloride) 112 mls @ 150 mls/hr IV Q12 [facility] Last Infusion: 03/19/19 22:44 Dose: Infused Documented by: Labetalol HCl (Trandate) 10 mg IV Q4H PRN PRN PRN Reason: SBP > 160 Levothyroxine Sodium (Synthroid) 25 mcg PO DAILY@0600 [facility] Last Admin: 03/20/19 05:46 Dose: 25 mcg Documented by: Melatonin (Melatonin) 3 mg PO QHS [facility] Last Admin: 03/19/19 22:11 Dose: 3 mg Documented by: Methylprednisolone (Solu-Medrol) 40 mg IV Q8 [facility] Last Admin: 03/20/19 05:46 Dose: 40 mg Documented by: Metoprolol Tartrate (Lopressor (Beta Garrett)) 25 mg PO BID [facility] Last Admin: 03/19/19 22:10 Dose: 25 mg Documented by: Nutritional Formula (Zaki - [place] Flavor) [facility] Last Admin: 03/19/19 16:23 Dose: Not Given Documented by: Nystatin (Mycostatin Powder) 1 applic TOPICAL TID [facility]; Protocol Last Admin: 03/20/19 05:45 Dose: 1 applicatio Documented by: Ondansetron HCl (Zofran) 4 mg IV Q8H PRN PRN PRN Reason: NAUSEA/VOMITING Senna/Docusate Sodium (Senokot-S, Cinda-Colace) 2 tablet PO BID PRN PRN PRN Reason: Constipation Sodium Chloride () 10 - 40 ml IV UD PRN PRN Reason: SALINE FLUSH Last Admin: 03/20/19 05:49 Dose: 10 ml Documented by: Sodium Chloride ([place] Nasal [place]) 1 spray NASAL BID PRN PRN PRN Reason: NASAL DRYNESS Last Admin: 03/20/19 00:04 Dose: 1 spray Documented by: Tolterodine Tartrate (Detrol La) 2 mg PO DAILY [facility] Last Admin: 03/19/19 10:40 Dose: Not Given Documented by: Venlafaxine HCl (Effexor Xr) 150 mg PO DAILY [facility] Last Admin: 03/19/19 10:27 Dose: 150 mg Documented by: Medical Necessity - Tobacco Use Smoking Status: Current every day smoker Tobacco Use: Cigarettes Assessment/Plan This is a 53 years old female patient presented to the emergency room because of fall and difficulty ambulating, found to have acute on chronic hypoxic and hypercapnic respiratory failure attributed to acute on chronic diastolic CHF/cor pulmonale, COPD and also found to have probable right leg cellulitis and acute kidney injury on top of stage III chronic kidney disease. #1 acute on chronic hypoxic and hypercapnic respiratory failure: Multifactorial secondary to probable acute on chronic diastolic CHF, COPD. She is on IV steroids and bronchodilators. Chest x-ray revealed cardiomegaly, obliteration of the left costophrenic angle, haziness on the right base which is chronic, no acute changes. Today, patient is fully alert and oriented, reported improvement of her symptoms. Plan: Resume p.o. Lasix, encourage oral intake, ambulate, wean off oxygen as tolerated. #2 acute on chronic diastolic CHF/cor pulmonale: Yesterday, she received IV fluids. Today, she does not seem to be volume overloaded. Respiratory status improved, symptoms improved. She is on metoprolol. Losartan and Lasix held yesterday because of acute kidney injury. Vital signs are stable, on Ventimask this morning. Plan: Resume Lasix, keep holding losartan. #3 probable COPD exacerbation: Less likely, remained on IV steroids and bronchodilators as above. She is on Ventimask this morning. Plan to wean off steroids. #4 acute kidney injury on top of stage III chronic kidney disease: Baseline creatinine has been around 1.1 to 1.4 mg/dL. Admission creatinine is 2.62. Patient received IV fluids. Creatinine came down to 1.92, improved. Because of pulmonary hypertension, her volume status is sensitive to fluids. Although her kidney function is not back to her baseline yet, no more IV fluids. Plan: Encourage oral intake, resume Lasix as above, repeat BMP tomorrow morning. #5 probable right leg cellulitis: She is on IV Unasyn. She has been afebrile, no leukocytosis. MRSA nasal screen and MRSA wound by PCR were negative. Patient does have chronic bilateral leg lymphedema, stasis dermatitis. Blood and urine cultures are pending. Plan to continue same treatment. #6 acute encephalopathy: Probably due to hypercapnia and hypoxia. CT scan brain without acute findings. Today, patient is alert and oriented x3. Resolved. #7 hypertension: Blood pressure stable, continue metoprolol, resume Lasix, keep holding losartan. #8 history of pulmonary emboli: Continue Eliquis. #9 DVT prophylaxis: Continue Eliquis. This note was generated with [employer] dictation software. It may contain incorrect words, spelling, and punctuation that were not noted in checking the note before signing. Code Visit Inpatient E&M: 40349 Subs Hosp L2
[2019-03-20] MEDS: Furosemide 40 MG Tablet PO ×2 (09:27→18:22)
[2019-03-20] MEDS: Aspirin 81 MG TAB.CHEW PO (09:27)
[2019-03-20] MEDS: Metoprolol Tartrate 25 MG Tablet PO ×2 (09:27→20:49)
[2019-03-20] MEDS: Folic Acid 1 MG Tablet PO (09:27)
[2019-03-20] MEDS: APIXABAN 5 MG TABLET PO ×2 (09:27→20:49)
[2019-03-20] MEDS: Tolterodine Tartrate 2 MG CAP.SA PO (09:27)
[2019-03-20] MEDS: Venlafaxine XR 150 MG Capsule PO (09:27)
--- NOTE | 2019-03-20 09:30 | PN_ITS ---
Subjective: Patient did okay overnight. Mentation continued to improve and patient refused BiPAP therapy. Patient was on Ventimask for a little bit this morning, but was on nasal cannula during my evaluation. Patient very agitated, but oriented and demanding to sit at the side of the bed secondary to leg pain. Patient stated that she did not have any leg pain prior to her fall. Patient did not have any respiratory symptoms. Patient does not wear BiPAP at baseline. - Physical Exam Vitals/I&O's: Vital Signs Temp Pulse Resp BP Pulse Ox 36.4 C L 83 16 131/85 H 93 03/20/19 09:25 03/20/19 09:25 03/20/19 09:25 03/20/19 09:25 03/20/19 09:25 Oxygen Flow Rate (L/min) 6 Oxygen Delivery Method Nasal Cannula Weight: 151 kg Body Mass Index (BMI) 53.7 Intake and Output for Last 24 Hours 03/18/19 03/19/19 03/20/19 23:59 23:59 23:59 Intake Total 640 / 640 1843.37 / 1843.37 Output Total 800 / 800 150 / 150 Balance 640 / 640 1043.37 / 1043.37 -150 / -150 General: Alert, Oriented x3, - - No conversational dyspnea noted. Morbidly obe se. HEENT: Atraumatic, PERRLA, EOMI, Normocephalic, - - No scleral icterus or injection noted Oral: Moist Mucosa, No Gingival or Mucosal Lesions/ Ulcerations, - - Crowded posterior pharynx Neck: Supple, No JVD, No Nodes, Trachea Midline Lungs: No rhonchi, No wheeze, No rales, Diminished Cardiovascular: Normal S1, Normal S2, No murmurs, No rub noted, No Gallop, Tachycardic Abdomen: Bowel Sounds Present, Soft, Non Tender, Non-Distended, Obese Extremities: No edema, Clubbing, Cyanosis - Bilateral lower extremities Skin: - - Lesions were clean, dry and intact on right leg Musculoskeletal: No Tenderness to Palpation of Joints or Extremities Lymphatic: No Cervical, Supraclavicular, or Inguinal Adenopathy Neurological: Cranial nerves II-XII grossly intact, Neuro grossly intact, Motor Exam 5/5 strength throughout Psych/Mental Status: Anxious, Restless Laboratory Results 03/19/19 09:00: S.aureus Protein A PCR NEGATIVE, MRSA (PCR) Negative 03/19/19 18:34: MRSA (PCR) Negative 03/20/19 04:08: WBC 5.6, RBC 7.06 H, Hgb 17.1 H, Hct 60.1 H, MCV 85.1, MCH 24.2 L, MCHC 28.5 L, RDW Std Deviation 78.7 H, RDW Coeff of Beltran 26.0 H, Plt Count 186, MPV 9.1, Immature Gran % (Auto) 0.400, Neut % (Auto) 82.4 H, Lymph % (Auto) 6.8 L, [place] % (Auto) 10.2 H, Eos % (Auto) 0.0, Baso % (Auto) 0.2, Absolute Neuts (auto) 4.6, Absolute Lymphs (auto) 0.38 L, Nucleated RBC % 0.7, Differential Comment SCANNED, Anisocytosis 2+ 03/20/19 04:08: Sodium 136, Potassium 5.0, Chloride 98, Carbon Dioxide 32.0, Anion Gap 6, BUN 43 H, Creatinine 1.92 H, Estim Creat Clear Calc 30.99, Est GFR (MDRD) Af Amer 35 L, Est GFR (MDRD) Non-Af 29 L, BUN/Creatinine Ratio 22.4 H, Glucose 147 H, Calcium 9.4, Total Bilirubin 1.30 H, AST 60 H, ALT 73 H, Alkaline Phosphatase 123 H, Total Protein 6.6, Albumin 2.6 L, Globulin 4.0, Albumin/Globulin Ratio 0.6 L Current Medications Albuterol Sulfate (Ventolin Aerosols) 2.5 mg INHALATION Q2H PRN PRN PRN Reason: SOB/Wheezing Albuterol/Ipratropium (Duoneb) 3 ml INHALATION Q4H.RT [facility] Last Admin: 03/20/19 06:44 Dose: 3 ml Documented by: Apixaban (Eliquis) 5 mg PO 0800,1999 [facility] Last Admin: 03/19/19 22:10 Dose: 5 mg Documented by: Aspirin (Aspirin, Baby) 81 mg PO DAILY@0800 [facility] Last Admin: 03/19/19 10:27 Dose: 81 mg Documented by: Atorvastatin Calcium (Lipitor) 40 mg PO QHS [facility] Last Admin: 03/19/19 22:10 Dose: 40 mg Documented by: Famotidine (Pepcid) 20 mg PO QHS PRN PRN PRN Reason: gerd Folic Acid (Folic Acid) 1 mg PO DAILY@0800 [facility] Furosemide (Lasix) 40 mg PO BIDLX [facility] Gabapentin (Neurontin) 300 mg PO 4X/DAYCM [facility] Glucagon () 1 mg IM .X1 PRN PRN Reason: Hypoglycemia Heparin Sodium (Porcine) (Heparin Na) 0 unit IV UD PRN; Protocol Sodium Chloride () 250 mls @ 15 mls/hr IV .[id number] PRN PRN Reason: Additional IVPB Infusion Last Infusion: 03/19/19 23:45 Dose: 0 mls/hr Documented by: Ampicillin Sodium/Sulbactam (Sodium 3 gm/ Sodium Chloride) 112 mls @ 150 mls/hr IV Q12 [facility] Last Infusion: 03/19/19 22:44 Dose: Infused Documented by: Labetalol HCl (Trandate) 10 mg IV Q4H PRN PRN PRN Reason: SBP > 160 Levothyroxine Sodium (Synthroid) 25 mcg PO DAILY@0600 [facility] Last Admin: 03/20/19 05:46 Dose: 25 mcg Documented by: Melatonin (Melatonin) 3 mg PO QHS [facility] Last Admin: 03/19/19 22:11 Dose: 3 mg Documented by: Metoprolol Tartrate (Lopressor (Beta Garrett)) 25 mg PO BID [facility] Last Admin: 03/19/19 22:10 Dose: 25 mg Documented by: Nutritional Formula (Zaki - [place] Flavor) [facility] Last Admin: 03/19/19 16:23 Dose: Not Given Documented by: Nystatin (Mycostatin Powder) 1 applic TOPICAL TID [facility]; Protocol Last Admin: 03/20/19 05:45 Dose: 1 applicatio Documented by: Ondansetron HCl (Zofran) 4 mg IV Q8H PRN PRN PRN Reason: NAUSEA/VOMITING Prednisone () 40 mg PO DAILY@0800 [facility] Senna/Docusate Sodium (Senokot-S, Cinda-Colace) 2 tablet PO BID PRN PRN PRN Reason: Constipation Sodium Chloride () 10 - 40 ml IV UD PRN PRN Reason: SALINE FLUSH Last Admin: 03/20/19 05:49 Dose: 10 ml Documented by: Sodium Chloride ([place] Nasal [place]) 1 spray NASAL BID PRN PRN PRN Reason: NASAL DRYNESS Last Admin: 03/20/19 00:04 Dose: 1 spray Documented by: Tolterodine Tartrate (Detrol La) 2 mg PO DAILY [facility] Last Admin: 03/19/19 10:40 Dose: Not Given Documented by: Venlafaxine HCl (Effexor Xr) 150 mg PO DAILY [facility] Last Admin: 03/19/19 10:27 Dose: 150 mg Documented by: Medical Necessity - Tobacco Use Smoking Status: Current every day smoker Tobacco Use: Cigarettes Assessment/Plan RECOMMENDATIONS: 1. Continue BiPAP as needed for sleep and rescue during the day 2. Oxygen to keep saturations 88 to 94% 3. Reassess mental status clinically 4. Caution with use of narcotics given renal disease and chronic respiratory failure 5. Continue to address goals of therapy IMPRESSIONS: 1. Acute on chronic diastolic congestive heart failure/acute on chronic cor pulmonale Patient was significantly dilated RV in the past. Patient has been likely chronically hypoxic for quite some time given her hemoglobin of 17 and reported cyanosis of the feet. Patient is on 5 L nasal cannula at baseline, but also has significant CO2 retention. Would recommend keeping saturations 88 to 94% to avoid depression of respiratory drive. Poor long-term prognosis without significant change in current habits. Patient does have a history of pulmonary emboli in the past. Will need to address patient's goals of therapy once she is more appropriate. Patient refusing BiPAP therapy with sleep here. Clinical suspicion for no BiPAP at home either leading to hypoxia, polycythemia and progressive decline. These actions are not consistent with a full CODE STATUS. If patient continues to wish aggressive measures, tracheostomy for sleep apnea and nocturnal ventilation can be explored. 2. Acute on chronic combined respiratory failure Likely a component secondary to #1. Also contributing would be patient's underlying diagnosis of COPD and uncontrolled obstructive sleep apnea. Patient is not compliant with MANUEL therapy and this is likely leading to recurrent hypoxemia and elevation of pulmonary artery pressures. Patient appears to be responding to BiPAP therapy when she uses it. 3. Acute kidney injury on chronic kidney disease stage III Unclear etiology at this time. Patient does have a history of hypertension in the past, so it is likely secondary to hypertension. Patient may also have an element of venous congestion given high pulmonary artery pressures. Urine output appears to be stable at this time. Patient does not appear to be significantly volume depleted at this time. Given RV issues, patient will be very sensitive to volume status. Patient does have some elevated CK, but not at a range that would be expected to impact renal function. This does appear to be improving with supportive care 4. Morbid obesity/hypertension/hypothyroidism/history of noncompliance/active tobacco abuse Complicates care, management, recovery and prognosis. Okay to continue with baseline medications. Patient's lower extremities do not appear to be acutely infected on my evaluation. This appears to be more consistent with venous stasis changes. Wound nurse is following lower extremity wounds Code Visit Inpatient E&M: 71967 Subs Hosp L2
[2019-03-20] MEDS: Gabapentin 300 MG Capsule PO ×4 (09:31→20:50)
--- NOTE | 2019-03-20 09:51 | CASEMGMT ---
SW attempted to talk with patient. FLOR introduced self and role at [facility]. She asked if SW could sit her up. SW told her SW cannot, but SW can see if one of the ccnp can come in and sit her up. She said they won't. SW told her SW will check with her nurse in a minute. SW asked patient if her plan is to go home at discharge. She started crying and said she isn't ready to go home. SW told her she isn't being discharged today. She said the doctor told her she could go tomorrow. SW left and spoke with nurse who stated therapy will be coming to see patient and they will work with her. SW went back to patient's room and explained this to her. SW asked patient if she has heard of Palliative Care. She again started crying stating she is not dying. SW told her Palliative Care is not for patient's who are dying that would be Hospice which is a completely different service. SW asked patient if she is going to be able to care for herself when she goes home. She said that she has been. Which is not accurate as her aides and family members care for her. SW suggested [facility]. She told SW, No, no no, I am not going to a shelter. She continued to cry and asked if SW could set her up. SW told her SW will check back with her a little later when she is more up to talking. As SW was walking out of the room patient said, I thought you were going to help me up. Stephanie BOUDREAUX MSW
--- NOTE | 2019-03-20 11:21 | CASEMGMT ---
FLOR called [facility] and left a message for Kellie requesting a return call regarding what services patient is currently getting. Stephanie BOUDREAUX MSW
--- NOTE | 2019-03-20 11:35 | CASEMGMT ---
RN MAU RHYTHMIC GYMNASTICS COACH CM to room to meet with patient for initial transition planning/care coordination assessment. MARIEL LEÓN introduced self and role at [facility]. Pt voices understanding and consents to assessment at this time. Pt resting in bed in no distress at this time. Pt is A/O at this time and answers all questions appropriately. Care providers, pharmacy, and demographics verified/updated at this time. PCP: Dr Thao. States has next appt Mar 22. Specialists: Dr Pearce--pulmonology Preferred Pharmacy: [facility] Retail pharmacy Insurance: Medicaid Prescription Benefit: Yes Living Will/HPOA: Pt does not currently have LW/HCPOA and declines info at this time. Pt made aware that she can contact SW as an out-pt and make appt in the future if she decides she would like to talk with someone about this or would like to utilize [facility] social work for advanced directive completion. Given [employer] card with information and contact number. Pt expresses understanding. LNOK: 2 daughters: Aruna Fuller and Dhara Cramer. Sister, Randall Pierce Living Arrangements: Lives alone in a one-story apt w/one step to enter. Pt states her sister does assist her into shower. Pt states her daughter brings her groceries and assists w/meals. Per family, pt has difficulty caring for herself. Transportation: [employer] transportation for appts. Sister assists some with transportation. DME: States has the following DME: shower chair, raised toilet seat, hospital bed , lift chair, rails/grab bars, hand held shower, walker, W/C, medical alert button, Oxygen through [employer]. Pt states she only has a concentrator and does not have and does not use portable tanks when she leaves the home, stating, I just go without it. Call placed to [employer] @ [phone]. They state they have current O2 orders for 8 L/M continuously and confirm that pt has not filled any portable tanks sincce 2017. They were made aware anticipate pt may be discharging home tomorrow and will need portability. They state they will deliver portable oxygen to pt's room first thing tomorrow morning. Pt states no need for further DME at this time. Pt has Waiver program and she qualifies for aides but pt states they have still been unsuccessful in finding aides to assist her. Pt states her Drainage Engineer is Kellie Capps. HHC/SNF: Pt states she has never been to a SNF and states very adamantly, I am not going to a long term. Discussed with pt's her sisters concerns for her safety with being home alone, recent falls, and difficulty caring for herself, but pt firmly stated, I am going home. Pt states she has had [facility] in the past and per prior note, pt has also had [facility]. Pt agreeable to HH @ discharge. Given list of local [facility] agencies. Pt stated she was pleased with [facility] and would like to have them again. Call placed to [facility] and referral made for group home, PT/OT eval and treat, SW, and aides. Referral packet faxed to [facility] at this time as well . Pt wishes to return home w/[facility] services. Pt states she still smokes 1/2 PPD and does not drink ETOH. Pt did state that she does remove her Oxygen prior to smoking. Pt Plan: Home w/HH. Plan: Per PT/OT evals, pt only able to ambulate 2 ft. CM/SW to follow pt's progress and PT/OT notes. Pt's sister voices concerns w/pt's safety upon returning home but pt adamant that she wants to return home. Jermaine HUBERN RN CM
--- NOTE | 2019-03-20 15:13 | CASEMGMT ---
FLOR received a voice mail from Kellie at [facility]. She said patient is approved for 35 hours a week of aide services, but she has not been able to find anyone to cover. This is due to where patient lives and the amount of time needed. She said patient also has a medical alert button and they are working on bathroom modifications. She asked SW let her know when patient is being discharged. Stephanie BOUDREAUX MSW
[2019-03-20] MEDS: Acetaminophen 325 MG Tablet 650 MG PO (16:16)
[2019-03-20] MEDS: Atorvastatin Calcium 40 MG Tablet PO (20:49)
[2019-03-20] MEDS: MELATONIN 3 MG TABLET PO (20:50)
[2019-03-21] VITALS (12 sets, daily range): BP systolic 126–135; BP diastolic 74–90; PULSE 76–89; RESP 14–18; TEMP 36.3–36.6; O2SAT 89–94
[2019-03-21] MEDS: Acetaminophen 325 MG Tablet 650 MG PO ×2 (05:54→13:06)
[2019-03-21] MEDS: Levothyroxine 25 MCG TABLET PO (05:54)
[2019-03-21] MEDS: 0.9% Saline Lock 10 ML Syringe IV ×2 (05:55→13:06)
[2019-03-21] MEDS: Nystatin Powder 15gm Bottle 1 APPLIC TOPICAL ×2 (05:56→13:06)
[2019-03-21 06:04] LABS: Anion Gap 3 (5-15); BUN 48 mg/dL (7-18); BUN/Creat Ratio 30.8 RATIO (10-20); Calcium,Total 9.3 mg/dL (8.5-10.1); Chloride 100 mmol/L (98-107); Creatinine, Serum 1.56 mg/dL (0.55-1.02); EST Glomerular Filtration Rate 37 mL/min (>60); Est Glom Filt Rate - Afr Amer 44 mL/min (>60); Estimated Creatinine Clearance 38.14 ml/min; Glucose 113 mg/dL (74-106); Potassium 4.9 mmol/L (3.5-5.1); Sodium Level 136 mmol/L (136-145)
[2019-03-21] MEDS: Ipratropium/Albuterol Sulfate 3 ML AMPUL.NEB INHALATION ×2 (07:08→14:50)
[2019-03-21] MEDS: Gabapentin 300 MG Capsule PO ×3 (08:12→15:57)
[2019-03-21] MEDS: APIXABAN 5 MG TABLET PO (08:12)
[2019-03-21] MEDS: Aspirin 81 MG TAB.CHEW PO (08:12)
[2019-03-21] MEDS: predniSONE 20 MG Tablet 40 MG PO (08:12)
[2019-03-21] MEDS: Folic Acid 1 MG Tablet PO (08:12)
[2019-03-21] MEDS: Venlafaxine XR 150 MG Capsule PO (09:52)
[2019-03-21] MEDS: Metoprolol Tartrate 25 MG Tablet PO (09:52)
[2019-03-21] MEDS: Furosemide 40 MG Tablet PO (09:52)
[2019-03-21] MEDS: Tolterodine Tartrate 2 MG CAP.SA PO (09:52)
--- NOTE | 2019-03-21 11:44 | CASEMGMT ---
Addendum entered by Arlette Banks 03/21/19 13:13: Call received from Refugio @ [facility] inquiring about when pt would be discharged today. He was made aware transportation time for pick-up is scheduled for 5 PM today. He states he plans on stopping in to see pt today prior to her discharge. Addendum entered by Arlette Banks 03/21/19 13:12: Call placed back to [facility] and referral cancelled. Addendum entered by Arlette Banks 03/21/19 12:55: Discharge instructions and summary faxed to [facility] at this time. Addendum entered by Arlette Banks 03/21/19 12:51: Call received back from Swathi [facility]. She states their website project manager has reviewed pt's chart and they are now able to accept pt. She was made aware [facility]. She states she anticipates start of care will be Monday. Pt made aware and voices appreciation as she states she has been pleased with [facility] services in the past. Pt has [facility] contact information at the bedside as well. She denies other needs or concerns at this time. Addendum entered by Arlette Banks 03/21/19 12:30: Per [facility], someone from their office will be calling pt either today or tomorrow to set up appt for start of care. Pt made aware. Addendum entered by Arlette Banks 03/21/19 12:08: Oxygen delivered to pt's room at this time. Call placed to [facility] to inquire about acceptance. Per Swathi @ [facility], the office for [facility] has closed and they are not able to accept pt. MARIEL CM to room to talk with pt. She states does not have another preference of a [facility] agency. Call placed to [facility] and they do not take pt's with [facility]. Call placed to [facility]. They state they are able to accept pt, but are unable to provide wound care. MARIEL LEÓN to room to talk with pt. Pt is aware she has an [facility] tomorrow and states if daily dressing changes are needed, that she is able to manage any dressing changes and her sister is also available to help if needed. Referral packet faxed to [facility] at this time. Pt made aware [facility] is able to accept her and she has their contact information. Original Note: MARIEL LEÓN NOTE: Pt is discharging today. Noted oxygen has not been delivered to pt's room yet. Call placed to [employer] and they informed this MARIEL LEÓN that the oxygen should be delivered to pt's room within the next 5 minutes. Jermaine YOUNG RN CM
--- NOTE | 2019-03-21 11:54 | DCINST_ITS ---
- Discharge Diagnoses Current Active Problems: Current Active and Chronic Problems (Last Reviewed 03/19/19 @ 05:33 by Bill Rosen MD) Peripheral artery disease (Chronic) Ulcer of right leg (Chronic) You will use the following diet at home:: Cardiac, Fluid restricted (specify 2000 mls, 1500 mls) - 1500 cc daily. Your food should be the consistency of: Regular Discharge Activity: Return to Normal Activity Weight Bearing Status: Weight bearing as tolerated Call your doctor if you observe: Fever of 101 or Higher, Shortness of breath, Dizziness, Fainting spells, Chest pain, Increased palpitations (irregular hear tbeat), Uncontrolled pain Allergies/Adverse Reactions: Allergies oxycodone [Oxycodone] Allergy (Verified 03/18/19 18:24) Rash oxycodone HCl [From Percodan] Allergy (Verified 03/18/19 18:24) Hives oxycodone terephthalate [From Percodan] Allergy (Verified 03/18/19 18:24) Hives Sulfa (Sulfonamide Antibiotics) Allergy (Verified 03/18/19 18:24) Hives cefuroxime Adverse Reaction (Verified 03/18/19 18:24) Unknown Cephalosporins Adverse Reaction (Verified 03/18/19 18:24) Vomiting meperidine HCl [From Demerol] Adverse Reaction (Verified 03/18/19 18:24) Vomiting NSAIDS (Non-Steroidal Anti-Inflamma Adverse Reaction (Verified 03/18/19 18:24) Unknown Medications to take at Discharge Cholecalciferol (Vitamin D3) [Vitamin D3] 50,000 unit PO TH 11/28/16 Folic Acid 1 mg PO DAILY 11/28/16 Gabapentin [Neurontin] 300 mg PO 4X/DAY 11/28/16 Levothyroxine [Synthroid] 25 mcg PO DAILY 11/28/16 Oxybutynin [Ditropan] 5 mg PO DAILY 11/28/16 Venlafaxine HCl [Venlafaxine HCl ER] 150 mg PO DAILY 11/28/16 Hydroxyzine HCl 10 mg PO TID 06/13/17 Atorvastatin Calcium [Lipitor] 40 mg PO QHS 01/07/18 Melatonin 3 mg PO QHS #30 tab 03/19/18 Apixaban [Eliquis] 5 mg PO 0800,199903/21/18 Aspirin [Aspirin, Baby] 81 mg PO DAILY 03/21/18 Losartan Potassium 25 mg PO DAILY 03/21/18 Metoprolol Tartrate [Lopressor (beta vineet)] 25 mg PO BID 03/21/18 Allopurinol 100 mg PO DAILY 08/20/18 Famotidine 20 mg PO QHS PRN 08/20/18 Acetaminophen [Tylenol Tablet] 650 mg PO Q6H PRN PRN tab 08/29/18 Albuterol Aerosols [Ventolin Aerosols] 2.5 mg INHALATION Q2H PRN PRN vial.neb. 08/29/18 Senna/Docusate Sodium [Senokot-S] 2 tab PO BID PRN PRN tab 08/29/18 Sodium Chloride 0.65% [[place] Nasal [place]] 1 spray NASAL BID PRN PRN spray.btl 08/29/18 Ipratropium/Albuterol Sulfate [Duoneb] 3 ml INHALATION Q4HWA.RT 08/31/18 Multivitamin with Iron [Tab-A-Jessica with Iron] 1 ea PO DAILY 08/31/18 Nystatin Powder [Mycostatin Powder] 1 applic TOPICAL TID 08/31/18 Furosemide [Lasix] 40 mg PO BID #28 tab 03/04/19 Ondansetron [Zofran Odt] 4 - 8 mg PO Q8H PRN PRN #20 tab 03/04/19 Albuterol Sulfate [Ventolin Hfa] 2 puff IH Q4H PRN PRN 03/18/19 Budesonide/Formoterol 160/4.5 [Symbicort 160/4.5 Mcg Inhaler (SP)] 1 puff IH BID 03/18/19 traMADol [Ultram] 50 mg PO TID PRN 03/18/19 Amox/Clavulanate Tablet [Augmentin Tablet] 500 mg PO Q12H #10 tab 03/21/19 The following prescriptions were given: Amox/Clavulanate Tablet [Augmentin Tablet] 500 mg PO Q12H #10 tab Transmission Status: Pending to [facility] Primary Care Physician: Brian Thao MD [Primary Care Provider] - Please follow up with your Primary Care Physician in: 1 week. Test Results: Test results from this visit will be discussed in further detail at your follow- up appointment, if applicable.
--- NOTE | 2019-03-21 11:56 | DS.PCM_ITS ---
Discharge Date and Diagnosis Date of Admission: 03/18/19 Date of Discharge: 03/21/19 - Primary Discharge Diagnosis #1 acute on chronic hypoxic and hypercapnic respiratory failure. #2 acute on chronic diastolic CHF/cor pulmonale. #3 acute kidney injury on top of stage III chronic kidney disease. #4 probable right leg cellulitis. #5 acute metabolic encephalopathy. #6 probable COPD exacerbation. - Secondary Discharge Diagnosis Chronic Problems (Last Reviewed 03/19/19 @ 05:33 by Bill Rosen MD) Peripheral artery disease (Chronic) Ulcer of right leg (Chronic) COPD (chronic obstructive pulmonary disease) (Chronic) MANUEL (obstructive sleep apnea) (Chronic) Cor pulmonale (Chronic) Respiratory failure with hypoxia and hypercapnia (Chronic) Chronic diastolic CHF (congestive heart failure) (Chronic) Pulmonary embolism (Chronic) remote history-on anticoagulants Right bundle branch block (RBBB) (Chronic) Secondary pulmonary arterial hypertension (Chronic) Nicotine dependence (Chronic) Essential (primary) hypertension (Chronic) Morbid obesity with BMI of 60.0-69.9, adult (Chronic) Hospital Course and Treatment Imaging Results: Clinical Impression(s) from Imaging Studies Brain CT 03/18/19 18:51 IMPRESSION: No fracture or hemorrhage. Electronically Signed: Nestor Santoro MD at 20:38 EST Tel , Service support , Tibia/Fibula X-Ray 03/18/19 18:53 IMPRESSION: No fractures or osteolytic lesions are seen. Electronically Signed: Nestor Santoro MD at 21:04 EST Tel , Service support , Tibia/Fibula X-Ray 03/18/19 18:53 IMPRESSION: No fractures or osteolytic lesions are seen. Electronically Signed: Nestor Santoro MD at 21:06 EST Tel , Service support , Chest X-Ray 03/18/19 20:20 IMPRESSION: Central vascular congestion. Right basilar alveolar disease. Electronically Signed: Nestor Santoro MD at 21:06 EST Tel , Service support , Consultations 03/19/19 02:35 Consult: Onc/Wound/reimbursement coordinator Routine Comment: Reason for Consult:: right lower extremity wounds Operations: None Procedures: EKG Summary of Care Provided: Patient seen and examined on the day of discharge and appeared to be stable to be discharged home. She remained on 6 L of oxygen. Her shortness of breath has been stable and she has been alert and oriented x3. She was having difficulties ambulating. She was seen by PT OT and apparently, patient having very difficult time to ambulate. Placement to usp facility suggested and patient absolutely refused to go to SNF. She is afebrile, blood pressure and heart rate are stable, pulse ox is maintained on 6 L. This is a 53 years old female patient presented to the emergency room because of fall and difficulty ambulating, found to have acute on chronic hypoxic and hypercapnic respiratory failure attributed to acute on chronic diastolic CHF/cor pulmonale, COPD and also found to have probable right leg cellulitis and acute kidney injury on top of stage III chronic kidney disease. #1 acute on chronic hypoxic and hypercapnic respiratory failure: Multifactorial secondary to acute on chronic diastolic CHF and probable COPD. She was treated with BiPAP, bronchodilators, steroids and later, she was started on p.o. Lasix. Chest x-ray revealed cardiomegaly, obliteration of the left costophrenic angle, haziness on the right base which is chronic, no acute changes. With treatment, patient is improved, symptoms improved and she maintained her pulse ox at 6 L which is her baseline at home. #2 acute on chronic diastolic CHF/cor pulmonale: Initially, patient was given IV fluids because of ANIL on CKD. Later, she was started on Lasix as well as continued on metoprolol. After started on Lasix and metoprolol, volume status stabilized and she was continued on her home medications. #3 probable COPD exacerbation: Treated with IV steroids, BiPAP and bronchodilators as above. #4 acute kidney injury on top of stage III chronic kidney disease: Baseline creatinine has been around 1.1 to 1.4 mg/dL. Admission creatinine is 2.62. Patient received IV fluids. Creatinine came down to 1.56 upon discharge, improved. Upon discharge, she was restarted back on Lasix and losartan. #5 probable right leg cellulitis: Treated with IV Unasyn. Patient remained afebrile and she had no leukocytosis. MRSA nasal screen and MRSA wound by PCR were negative. Patient does have chronic bilateral leg lymphedema, stasis dermatitis. Urine culture showed no growth. Blood culture was negative up to the time of discharge. Patient discharged on Augmentin for 5 days, recommended follow-up with wound care center as outpatient. #6 acute encephalopathy: Probably due to hypercapnia and hypoxia. CT scan brain without acute findings. Resolved. #7 hypertension: Blood pressure has been stable, continued metoprolol, Lasix, and losartan upon discharge. #8 history of pulmonary emboli: Continued on Eliquis. Patient discharged home with home health in a stable medical condition, discharged on Augmentin twice daily for 5 days for probable right leg cellulitis, started back on Lasix, statin, continued on her other previous home medications without any changes, continued on oxygen at 6 L, patient had difficulty ambulating and she was seen by PT OT and recommended placement to usp facility but patient absolutely refused even to talk about nursing homes and she wants to go home. Plan is to follow-up with PCP in 1 week. Recommended follow-up with wound care center as outpatient. This note was generated with [employer] dictation software. It may contain incorrect words, spelling, and punctuation that were not noted in checking the note before signing. - Physical Exam Vitals/I&O's: Vital Signs Temp Pulse Resp BP Pulse Ox 97.8 F 84 16 126/74 H 89 03/21/19 09:50 03/21/19 09:52 03/21/19 09:50 03/21/19 09:50 03/21/19 10:00 Oxygen Flow Rate (L/min) 6 Oxygen Delivery Method Nasal Cannula Weight: 332 lb 14.368 oz Body Mass Index (BMI) 53.7 Intake and Output for Last 24 Hours 03/19/19 03/20/19 03/21/19 23:59 23:59 23:59 Intake Total 1843.37 / 1843.37 1076 / 1301 890.75 / 890.75 Output Total 800 / 800 550 / 700 550 / 550 Balance 1043.37 / 1043.37 526 / 601 340.75 / 340.75 General: Alert, Oriented x3, Cooperative, - - Minimally short of breath. HEENT: Atraumatic, PERRLA, EOMI, Normocephalic Oral: Moist Mucosa, No Gingival or Mucosal Lesions/ Ulcerations Neck: Supple, No JVD, Negative Carotid Bruits, Trachea Midline, Thyroid Normal Size and Texture Lungs: Clear to auscultation, Normal air movement, No rhonchi, No wheeze, No rales, Diminished Cardiovascular: Regular rate, Regular Rhythm, Normal S1, Normal S2, PMI Normal Abdomen: Bowel Sounds Present, Soft, Non Tender, Non-Distended, No Hepato- splenomegaly, Obese Extremities: No clubbing, No cyanosis, Edema - Bilateral lymphedema, stasis dermatitis. Skin: No rashes, Ulcer/ Wound Lymphatic: No Cervical, Supraclavicular, or Inguinal Adenopathy Neurological: Cranial nerves II-XII grossly intact, Neuro grossly intact Psych/Mental Status: Normal Affect, Appropriate Microbiology Past 72 Hours 03/18/19 20:00 Urine, Catheterized Urine Culture - Final Culture exhibits no growth. Laboratory Results 03/21/19 04:33: Sodium 136, Potassium 4.9, Chloride 100, Carbon Dioxide 33.0 H, Anion Gap 3 L, BUN 48 H, Creatinine 1.56 H, Estim Creat Clear Calc 38.14, Est GFR (MDRD) Af Amer 44 L, Est GFR (MDRD) Non-Af 37 L, BUN/Creatinine Ratio 30.8 H , Glucose 113 H, Calcium 9.3 Current Medications Acetaminophen (Tylenol) 650 mg PO Q6H PRN PRN PRN Reason: Pain Score 1-10/10 Last Admin: 03/21/19 05:54 Dose: 650 mg Documented by: Albuterol Sulfate (Ventolin Aerosols) 2.5 mg INHALATION Q2H PRN PRN PRN Reason: SOB/Wheezing Albuterol/Ipratropium (Duoneb) 3 ml INHALATION Q4H.RT [facility] Last Admin: 03/21/19 10:40 Dose: Not Given Documented by: Apixaban (Eliquis) 5 mg PO 0800,1999 [facility] Last Admin: 03/21/19 08:12 Dose: 5 mg Documented by: Aspirin (Aspirin, Baby) 81 mg PO DAILY@0800 [facility] Last Admin: 03/21/19 08:12 Dose: 81 mg Documented by: Atorvastatin Calcium (Lipitor) 40 mg PO QHS [facility] Last Admin: 03/20/19 20:49 Dose: 40 mg Documented by: Famotidine (Pepcid) 20 mg PO QHS PRN PRN PRN Reason: gerd Folic Acid (Folic Acid) 1 mg PO DAILY@0800 [facility] Last Admin: 03/21/19 08:12 Dose: 1 mg Documented by: Furosemide (Lasix) 40 mg PO BIDLX [facility] Last Admin: 03/21/19 09:52 Dose: 40 mg Documented by: Gabapentin (Neurontin) 300 mg PO 4X/DAYCM [facility] Last Admin: 03/21/19 11:41 Dose: 300 mg Documented by: Glucagon () 1 mg IM .X1 PRN PRN Reason: Hypoglycemia Heparin Sodium (Porcine) (Heparin Na) 0 unit IV UD PRN; Protocol Sodium Chloride () 250 mls @ 15 mls/hr IV .[id number] PRN PRN Reason: Additional IVPB Infusion Last Infusion: 03/21/19 08:15 Dose: 0 mls/hr Documented by: Ampicillin Sodium/Sulbactam (Sodium 3 gm/ Sodium Chloride) 112 mls @ 150 mls/hr IV Q8 [facility] Last Infusion: 03/21/19 06:40 Dose: Infused Documented by: Labetalol HCl (Trandate) 10 mg IV Q4H PRN PRN PRN Reason: SBP > 160 Levothyroxine Sodium (Synthroid) 25 mcg PO DAILY@0600 [facility] Last Admin: 03/21/19 05:54 Dose: 25 mcg Documented by: Melatonin (Melatonin) 3 mg PO QHS [facility] Last Admin: 03/20/19 20:50 Dose: 3 mg Documented by: Metoprolol Tartrate (Lopressor (Beta [place])) 25 mg PO BID [facility] Last Admin: 03/21/19 09:52 Dose: 25 mg Documented by: Nutritional Formula (Zaki - [place] Flavor) [facility] Last Admin: 03/21/19 08:13 Dose: Not Given Documented by: Nystatin (Mycostatin Powder) 1 applic TOPICAL TID [facility]; Protocol Last Admin: 03/21/19 05:56 Dose: 1 applicatio Documented by: Ondansetron HCl (Zofran) 4 mg IV Q8H PRN PRN PRN Reason: NAUSEA/VOMITING Prednisone () 40 mg PO DAILY@0800 [facility] Last Admin: 03/21/19 08:12 Dose: 40 mg Documented by: Senna/Docusate Sodium (Senokot-S, Cinda-Colace) 2 tablet PO BID PRN PRN PRN Reason: Constipation Sodium Chloride () 10 - 40 ml IV UD PRN PRN Reason: SALINE FLUSH Last Admin: 03/21/19 05:55 Dose: 10 ml Documented by: Sodium Chloride ([place] Nasal [place]) 1 spray NASAL BID PRN PRN PRN Reason: NASAL DRYNESS Last Admin: 03/20/19 00:04 Dose: 1 spray Documented by: Tolterodine Tartrate (Detrol La) 2 mg PO DAILY [facility] Last Admin: 03/21/19 09:52 Dose: 2 mg Documented by: Venlafaxine HCl (Effexor Xr) 150 mg PO DAILY [facility] Last Admin: 03/21/19 09:52 Dose: 150 mg Documented by: Discharge Activity: Return to Normal Activity Weight Bearing Status: Weight bearing as tolerated Call your doctor if you observe: Fever of 101 or Higher, Shortness of breath, Dizziness, Fainting spells, Chest pain, Increased palpitations (irregular heartbeat), Uncontrolled pain Home Medications: Medications to take at Discharge Cholecalciferol (Vitamin D3) [Vitamin D3] 50,000 unit PO TH 11/28/16 Folic Acid 1 mg PO DAILY 11/28/16 Gabapentin [Neurontin] 300 mg PO 4X/DAY 11/28/16 Levothyroxine [Synthroid] 25 mcg PO DAILY 11/28/16 Oxybutynin [Ditropan] 5 mg PO DAILY 11/28/16 Venlafaxine HCl [Venlafaxine HCl ER] 150 mg PO DAILY 11/28/16 Hydroxyzine HCl 10 mg PO TID 06/13/17 Atorvastatin Calcium [Lipitor] 40 mg PO QHS 01/07/18 Melatonin 3 mg PO QHS #30 tab 03/19/18 Apixaban [Eliquis] 5 mg PO 0800,199903/21/18 Aspirin [Aspirin, Baby] 81 mg PO DAILY 03/21/18 Losartan Potassium 25 mg PO DAILY 03/21/18 Metoprolol Tartrate [Lopressor (beta gar[place])] 25 mg PO BID 03/21/18 Allopurinol 100 mg PO DAILY 08/20/18 Famotidine 20 mg PO QHS PRN 08/20/18 Acetaminophen [Tylenol Tablet] 650 mg PO Q6H PRN PRN tab 08/29/18 Albuterol Aerosols [Ventolin Aerosols] 2.5 mg INHALATION Q2H PRN PRN vial.neb. 08/29/18 Senna/Docusate Sodium [Senokot-S] 2 tab PO BID PRN PRN tab 08/29/18 Sodium Chloride 0.65% [[place] Nasal [place]] 1 spray NASAL BID PRN PRN spray.btl 08/29/18 Ipratropium/Albuterol Sulfate [Duoneb] 3 ml INHALATION Q4HWA.RT 08/31/18 Multivitamin with Iron [Tab-A-Jessica with Iron] 1 ea PO DAILY 08/31/18 Nystatin Powder [Mycostatin Powder] 1 applic TOPICAL TID 08/31/18 Furosemide [Lasix] 40 mg PO BID #28 tab 03/04/19 Ondansetron [Zofran Odt] 4 - 8 mg PO Q8H PRN PRN #20 tab 03/04/19 Albuterol Sulfate [Ventolin Hfa] 2 puff IH Q4H PRN PRN 03/18/19 Budesonide/Formoterol 160/4.5 [Symbicort 160/4.5 Mcg Inhaler (SP)] 1 puff IH BID 03/18/19 traMADol [Ultram] 50 mg PO TID PRN 03/18/19 Amox/Clavulanate Tablet [Augmentin Tablet] 500 mg PO Q12H #10 tab 03/21/19 Following Prescrptions Were Given to Patient: Amox/Clavulanate Tablet [Augmentin Tablet] 500 mg PO Q12H #10 tab Transmission Status: Pending to [facility] Primary Care Physician: Brian Thao MD [Primary Care Provider] - Please follow up with your Primary Care Physician in: 1 week. Disposition: Home Minutes spent on discharge:: 32 Patient Condition:: Stable Medical Necessity - Tobacco Use Smoking Status: Current every day smoker Tobacco Use: Cigarettes Meaningful Use Info Meaningful Use Diagnoses (Choose all that apply): CHF - CHF DEJON/ARB ordered at discharge?: Yes Documented LVEF (%): 55 Code Visit Inpatient E&M: 04377 Disch Hosp
--- NOTE | 2019-03-21 12:17 | CASEMGMT ---
Patient again would not walk with therapy. Therapy feels patient could do it, but she will not. SW spoke with patient and asked how she did with therapy. SW asked if she walked and she said she did not. SW asked her how she is going to manage at home if she cannot walk. She said she is not being discharged today. FLOR told her she is being discharged today the physician wanted to see how she does with therapy to see if she needs custodial or is ok for home. She vehemently said she is not going to a custodial. FLOR asked her why she is so against going to a custodial. She said she doesn't like nursing homes. FLOR told her most people don't necessarily like nursing homes, but if they need rehab they will go. She again said, I am not going to a custodial. She is open to home health, which MARIEL LEÓN is working on for patient. Patient confirmed she will need an ambulance ride home. She said her sister will be at the home to let her in. SW told her SW will let her know when SW has a time. FLOR called Kellie at [facility] and left her a voice mail letting her know patient is being discharged today with home health. Stephanie BOUDREAUX MSW
--- NOTE | 2019-03-21 12:33 | CASEMGMT ---
FLOR called [facility] and arranged for patient to get picked up at 5p via cot. FLOR notified RN, patient, and UI DEVELOPER WITH [employer]. Stephanie BOUDREAUX MSW
--- NOTE | 2019-03-21 12:56 | PCM.PN.PUL ---
Subjective: Patient reports that she is back to baseline from a respiratory standpoint. Patient did wear BiPAP for a short period of time overnight. Patient states that she is unclear if she would comply with BiPAP therapy at home if this was provided. - Physical Exam Vitals/I&O's: Vital Signs Temp Pulse Resp BP Pulse Ox 36.6 C 84 16 126/74 H 89 03/21/19 09:50 03/21/19 09:52 03/21/19 09:50 03/21/19 09:50 03/21/19 10:00 Oxygen Flow Rate (L/min) 6 Oxygen Delivery Method Nasal Cannula Weight: 151 kg Body Mass Index (BMI) 53.7 Intake and Output for Last 24 Hours 03/19/19 03/20/19 03/21/19 23:59 23:59 23:59 Intake Total 1843.37 / 1843.37 1076 / 1301 890.75 / 890.75 Output Total 800 / 800 550 / 700 550 / 550 Balance 1043.37 / 1043.37 526 / 601 340.75 / 340.75 General: Alert, Oriented x3, Cooperative, No apparent distress, - - Morbidly obese. No conversational dyspnea. HEENT: Atraumatic, PERRLA, EOMI, Normocephalic, - - No scleral icterus or injection noted Oral: Moist Mucosa, No Gingival or Mucosal Lesions/ Ulcerations Neck: Supple, No Nodes, Trachea Midline, - - Unable to assess JVD secondary to body habitus Lungs: No rhonchi, No wheeze, No rales, Diminished Cardiovascular: Regular rate, Regular Rhythm, Normal S1, Normal S2, No murmurs, No rub noted, No Gallop Abdomen: Bowel Sounds Present, Soft, Non Tender, Non-Distended, Obese Extremities: No cyanosis, No edema, Clubbing Skin: - - No change from previous except for less cyanosis of the lower extremities Musculoskeletal: No Tenderness to Palpation of Joints or Extremities Lymphatic: No Cervical, Supraclavicular, or Inguinal Adenopathy Neurological: Cranial nerves II-XII grossly intact, Neuro grossly intact Psych/Mental Status: Alert and oriented to time, place, person, mood and affect Microbiology Past 72 Hours 03/18/19 19:40 Blood Culture (Wb) - Right Hand Blood Culture - Preliminary No growth in 48 hours. 03/18/19 19:15 Blood Culture (Wb) - Anticubital Left Blood Culture - Preliminary No growth in 48 hours. 03/18/19 20:00 Urine, Catheterized Urine Culture - Final Culture exhibits no growth. Laboratory Results 03/21/19 04:33: Sodium 136, Potassium 4.9, Chloride 100, Carbon Dioxide 33.0 H, Anion Gap 3 L, BUN 48 H, Creatinine 1.56 H, Estim Creat Clear Calc 38.14, Est GFR (MDRD) Af Amer 44 L, Est GFR (MDRD) Non-Af 37 L, BUN/Creatinine Ratio 30.8 H, Glucose 113 H, Calcium 9.3 Current Medications Acetaminophen (Tylenol) 650 mg PO Q6H PRN PRN PRN Reason: Pain Score 1-10/10 Last Admin: 03/21/19 05:54 Dose: 650 mg Documented by: Albuterol Sulfate (Ventolin Aerosols) 2.5 mg INHALATION Q2H PRN PRN PRN Reason: SOB/Wheezing Albuterol/Ipratropium (Duoneb) 3 ml INHALATION Q4H.RT [facility] Last Admin: 03/21/19 10:40 Dose: Not Given Documented by: Apixaban (Eliquis) 5 mg PO 0800,1999 [facility] Last Admin: 03/21/19 08:12 Dose: 5 mg Documented by: Aspirin (Aspirin, Baby) 81 mg PO DAILY@0800 [facility] Last Admin: 03/21/19 08:12 Dose: 81 mg Documented by: Atorvastatin Calcium (Lipitor) 40 mg PO QHS [facility] Last Admin: 03/20/19 20:49 Dose: 40 mg Documented by: Famotidine (Pepcid) 20 mg PO QHS PRN PRN PRN Reason: gerd Folic Acid (Folic Acid) 1 mg PO DAILY@0800 [facility] Last Admin: 03/21/19 08:12 Dose: 1 mg Documented by: Furosemide (Lasix) 40 mg PO BIDLX [facility] Last Admin: 03/21/19 09:52 Dose: 40 mg Documented by: Gabapentin (Neurontin) 300 mg PO 4X/DAYCM [facility] Last Admin: 03/21/19 11:41 Dose: 300 mg Documented by: Glucagon () 1 mg IM .X1 PRN PRN Reason: Hypoglycemia Heparin Sodium (Porcine) (Heparin Na) 0 unit IV UD PRN; Protocol Sodium Chloride () 250 mls @ 15 mls/hr IV .[id number] PRN PRN Reason: Additional IVPB Infusion Last Infusion: 03/21/19 08:15 Dose: 0 mls/hr Documented by: Ampicillin Sodium/Sulbactam (Sodium 3 gm/ Sodium Chloride) 112 mls @ 150 mls/hr IV Q8 [facility] Last Infusion: 03/21/19 06:40 Dose: Infused Documented by: Labetalol HCl (Trandate) 10 mg IV Q4H PRN PRN PRN Reason: SBP > 160 Levothyroxine Sodium (Synthroid) 25 mcg PO DAILY@0600 [facility] Last Admin: 03/21/19 05:54 Dose: 25 mcg Documented by: Melatonin (Melatonin) 3 mg PO QHS [facility] Last Admin: 03/20/19 20:50 Dose: 3 mg Documented by: Metoprolol Tartrate (Lopressor (Beta Garrett)) 25 mg PO BID [facility] Last Admin: 03/21/19 09:52 Dose: 25 mg Documented by: Nutritional Formula (Zaki - [place] Flavor) 1 packet PO BIDCM [facility] Last Admin: 03/21/19 08:13 Dose: Not Given Documented by: Nystatin (Mycostatin Powder) 1 applic TOPICAL TID [facility]; Protocol Last Admin: 03/21/19 05:56 Dose: 1 applicatio Documented by: Ondansetron HCl (Zofran) 4 mg IV Q8H PRN PRN PRN Reason: NAUSEA/VOMITING Prednisone () 40 mg PO DAILY@0800 [facility] Last Admin: 03/21/19 08:12 Dose: 40 mg Documented by: Senna/Docusate Sodium (Senokot-S, Cinda-Colace) 2 tablet PO BID PRN PRN PRN Reason: Constipation Sodium Chloride () 10 - 40 ml IV UD PRN PRN Reason: SALINE FLUSH Last Admin: 03/21/19 05:55 Dose: 10 ml Documented by: Sodium Chloride ([place] Nasal [place]) 1 spray NASAL BID PRN PRN PRN Reason: NASAL DRYNESS Last Admin: 03/20/19 00:04 Dose: 1 spray Documented by: Tolterodine Tartrate (Detrol La) 2 mg PO DAILY [facility] Last Admin: 03/21/19 09:52 Dose: 2 mg Documented by: Venlafaxine HCl (Effexor Xr) 150 mg PO DAILY [facility] Last Admin: 03/21/19 09:52 Dose: 150 mg Documented by: Medical Necessity - Tobacco Use Smoking Status: Current every day smoker Tobacco Use: Cigarettes Assessment/Plan RECOMMENDATIONS: 1. Continue BiPAP as needed for sleep 2. Oxygen to keep saturations 88 to 94% 3. Reassess mental status clinically 4. Caution with use of narcotics given renal disease and chronic respiratory failure 5. Continue to address goals of therapy IMPRESSIONS: 1. Acute on chronic diastolic congestive heart failure/acute on chronic cor pulmonale Patient was significantly dilated RV in the past. Patient has been likely chronically hypoxic for quite some time given her hemoglobin of 17 and reported cyanosis of the feet. Patient is on 5 L nasal cannula at baseline, but also has significant CO2 retention. Would recommend keeping saturations 88 to 94% to avoid depression of respiratory drive. Poor long-term prognosis without significant change in current habits. Patient does have a history of pulmonary emboli in the past. Despite complete review of complications associated with nocturnal hypoxemia, patient is not interested in BiPAP at home at this time. These actions are not consistent with a full CODE STATUS. If patient continues to wish aggressive measures, tracheostomy for sleep apnea and nocturnal ventilation can be explored. 2. Acute on chronic combined respiratory failure Likely a component secondary to #1. Also contributing would be patient's underlying diagnosis of COPD and uncontrolled obstructive sleep apnea. Patient is not compliant with MANUEL therapy and this is likely leading to recurrent hypoxemia and elevation of pulmonary artery pressures. Patient appears to be responding to BiPAP therapy when she uses it. Patient currently refusing this for home. Patient would qualify for trilogy as an outpatient from a respiratory standpoint without a sleep study if she were agreeable. 3. Acute kidney injury on chronic kidney disease stage III Continues to improve. Unclear etiology at this time. Patient does have a history of hypertension in the past, so it is likely secondary to hypertension. Patient may also have an element of venous congestion given high pulmonary artery pressures. Urine output appears to be stable at this time. Patient does not appear to be significantly volume depleted at this time. Given RV issues, patient will be very sensitive to volume status. Patient does have some elevated CK, but not at a range that would be expected to impact renal function. This does appear to be improving with supportive care 4. Morbid obesity/hypertension/hypothyroidism/history of noncompliance/active tobacco abuse Complicates care, management, recovery and prognosis. Okay to continue with baseline medications. Patient's lower extremities do not appear to be acutely infected on my evaluation. This appears to be more consistent with venous stasis changes. Wound nurse is following lower extremity wounds Code Visit Inpatient E&M: 05535 Subs Hosp L2
--- NOTE | 2019-03-21 13:51 | PHA.DC.MC ---
Pharmacy Service has performed discharge medication reconciliation and counseling for this patient. The patient's discharge medication list was reviewed for discrepancies and discrepancies were resolved. Home Medications Cholecalciferol (Vitamin D3) [Vitamin D3] 50,000 unit PO TH 11/28/16 Folic Acid 1 mg PO DAILY 11/28/16 Gabapentin [Neurontin] 300 mg PO 4X/DAY 11/28/16 Levothyroxine [Synthroid] 25 mcg PO DAILY 11/28/16 Oxybutynin [Ditropan] 5 mg PO DAILY 11/28/16 Venlafaxine HCl [Venlafaxine HCl ER] 150 mg PO DAILY 11/28/16 Hydroxyzine HCl 10 mg PO TID 06/13/17 Atorvastatin Calcium [Lipitor] 40 mg PO QHS 01/07/18 Melatonin 3 mg PO QHS #30 tab 03/19/18 Apixaban [Eliquis] 5 mg PO 0800,199903/21/18 Aspirin [Aspirin, Baby] 81 mg PO DAILY 03/21/18 Losartan Potassium 25 mg PO DAILY 03/21/18 Metoprolol Tartrate [Lopressor (beta vineet)] 25 mg PO BID 03/21/18 Allopurinol 100 mg PO DAILY 08/20/18 Famotidine 20 mg PO QHS PRN 08/20/18 Acetaminophen [Tylenol Tablet] 650 mg PO Q6H PRN PRN tab 08/29/18 Albuterol Aerosols [Ventolin Aerosols] 2.5 mg INHALATION Q2H PRN PRN vial.neb. 08/29/18 Senna/Docusate Sodium [Senokot-S] 2 tab PO BID PRN PRN tab 08/29/18 Sodium Chloride 0.65% [[place] Nasal [place]] 1 spray NASAL BID PRN PRN spray.btl 08/29/18 Ipratropium/Albuterol Sulfate [Duoneb] 3 ml INHALATION Q4HWA.RT 08/31/18 Multivitamin with Iron [Tab-A-Jessica with Iron] 1 ea PO DAILY 08/31/18 Nystatin Powder [Mycostatin Powder] 1 applic TOPICAL TID 08/31/18 Furosemide [Lasix] 40 mg PO BID #28 tab 03/04/19 Ondansetron [Zofran Odt] 4 - 8 mg PO Q8H PRN PRN #20 tab 03/04/19 Albuterol Sulfate [Ventolin Hfa] 2 puff IH Q4H PRN PRN 03/18/19 Budesonide/Formoterol 160/4.5 [Symbicort 160/4.5 Mcg Inhaler (SP)] 1 puff IH BID 03/18/19 traMADol [Ultram] 50 mg PO TID PRN 03/18/19 Amox/Clavulanate Tablet [Augmentin Tablet] 500 mg PO Q12H #10 tab 03/21/19 The patient was counseled on the following discharge medications and changes in medications for homegoing were reviewed. 1. AUGMENTIN The Reason for Use, instructions for use, and potential side effects were reviewed for all new medications. The patient's questions regarding all of their medications were answered. The patient was able to verbally demonstrate an understanding of their discharge medications.
--- NOTE | 2019-03-21 15:18 | CM.UR ---
[facility] from [facility] provided with PT/OT/wound notes and facesheet for patient as requested. SW updated. Jennyfer Hudson LPN Clinical Support
== END 2019-03-21 18:58 | disposition home or self-care (01) | DRG 133 ==
LOC: ED 19:11 → PCU 03-19 01:27
PROVIDERS: Admitting Provider Hospitalist; Emergency Provider Emergency Medicine; PCP Internal Medicine; Referring Provider Internal Medicine; Visit Provider Hospitalist
DX: J96.22 Acute and chronic respiratory failure with hypercapnia (principal); J96.21 Acute and chronic respiratory failure with hypoxia; N18.3 Chronic kidney disease, stage 3 (moderate); N17.9 Acute kidney failure, unspecified; G93.41 Metabolic encephalopathy; Z79.02 Long term (current) use of antithrombotics/antiplatelets; Z99.81 Dependence on supplemental oxygen; I73.9 Peripheral vascular disease, unspecified; I50.33 Acute on chronic diastolic (congestive) heart failure; I13.0 Hypertensive heart and chronic kidney disease with heart failure and stage 1 through stage 4 chronic kidney disease, or unspecified chronic kidney disease; E03.9 Hypothyroidism, unspecified; G47.30 Sleep apnea, unspecified; I27.81 Cor pulmonale (chronic); J44.9 Chronic obstructive pulmonary disease, unspecified; I27.21 Secondary pulmonary arterial hypertension; E66.01 Morbid (severe) obesity due to excess calories; Z79.82 Long term (current) use of aspirin; Z79.899 Other long term (current) drug therapy; Z79.51 Long term (current) use of inhaled steroids; F17.210 Nicotine dependence, cigarettes, uncomplicated; L97.819 Non-pressure chronic ulcer of other part of right lower leg with unspecified severity; E86.0 Dehydration; D75.1 Secondary polycythemia; R74.0 Nonspecific elevation of levels of transaminase and lactic acid dehydrogenase [LDH]; Z86.711 Personal history of pulmonary embolism; Z68.43 Body mass index [BMI] 50.0-59.9, adult; I89.0 Lymphedema, not elsewhere classified; I87.2 Venous insufficiency (chronic) (peripheral); G47.33 Obstructive sleep apnea (adult) (pediatric); Z91.19 Patient's noncompliance with other medical treatment and regimen
CPT/HCPCS: 36415; 36600; 51702; 70450; 71046; 73590; 80048; 80053; 80307; 81001; 82550; 82803; 83605; 84484; 85025; 85730; 87040; 87086; 87640; 87641; 93005; 93922; 94002; 94003; 94640; 97163; 97167; 97530; 97802; 99251; 99285; J7030; J7040; J7050; A4216; G0463; J0295

== ENCOUNTER 2019-03-22 11:23 | Emergency (ER) | payer MEDICAID, SELFPAY ==
[2019-03-18 23:59] VITALS: BMI 53.7
[2019-03-22 11:24] VITALS: BP 134/74; PULSE 86; RESP 15; TEMP 36.4; O2SAT 96; BMI 54.1
[2019-03-22 11:27] VITALS: O2SAT 96
--- NOTE | 2019-03-22 11:35 | RAD_ITS ---
STUDY: X-RAY CHEST REASON FOR EXAM: Female, 53 years old. Worsening shortness of breath TECHNIQUE: Single AP portable view of the chest. COMPARISON: 03/18/2019 FINDINGS: EKG leads overlie the chest Central vascular congestion. Right basilar alveolar disease. There is no demonstrated pleural abnormality. Stable cardiomediastinal silhouette. Normal mediastinum and randolph. Normal visualized pulmonary arteries. Normal visualized aortic arch and descending thoracic aorta. Degenerative bony changes. Normal visualized ribs, clavicles, and shoulders. There is no demonstrated abnormality of the visualized soft tissue structures of the upper abdomen. RAD/Chest 1 View (Portable) IMPRESSION: No interval change Electronically Signed: Jimbo Babin MD at 11:51 EST , Service support ,
--- NOTE | 2019-03-22 11:35 | EKG12_ITS ---
Test Reason : SOB Blood Pressure : / mmHG Vent. Rate : 084 BPM Atrial Rate : 084 BPM P-R Int : 162 ms QRS Dur : 162 ms QT Int : 434 ms P-R-T Axes : 065 121 -38 degrees QTc Int : 512 ms Normal sinus rhythm Possible Left atrial enlargement Right bundle branch block , plus right ventricular hypertrophy Septal infarct , age undetermined T wave abnormality, consider inferior ischemia Abnormal ECG Confirmed by KELSEY BONILLA, YULISSA ([id number]), senior technical editor YAMILKA HEIN ([id number]) on 03/25/2019 10:51:54 AM Referred By: SOB Confirmed By:COLLIN COLE MD
[2019-03-22 12:00] VITALS: PULSE 87; RESP 18
[2019-03-22] MEDS: Ipratropium/Albuterol Sulfate 3 ML AMPUL.NEB INHALATION (12:00)
[2019-03-22 12:02] LABS: Absolute Lymphocyte Count 1.04 X10^3/uL (0.83-4.51); Absolute Neutrophil Count 8.6 X10^3/uL (2.0-7.7); Eosinophil# 0.04 X10^3/uL; Eosinophils% 0.4 % (0-5); Hemoglobin 15.5 g/dL (12.0-15.0); Lymphocyte # 1.04 X10^3/ul (4.0); Lymphocyte % 9.6 % (19-41); Mean Corp Hgb Conc 28.2 g/dL (32-36); Mean Corpuscular Hgb 24.1 pg (27.0-32.0); Mean Corpuscular Volume 85.5 fL (81-99); Mean Platelet Vol. 9.6 fl (6.2-12.0); Monocyte# 1.08 X10^3/uL; NRBC Flagged by Analyzer 0.3 % (0-5); Neutrophil # 8.59 X10^3/uL (2.7-7.7); Neutrophil % 79.5 % (47-70); POSITIVE MORPHOLOGY YES; Platelet Count 206 K/mm3 (150-450); RBC Distribution Width CV 25.5 % (11.6-14.6); RBC Distribution Width SD 78.5 fl (35.1-43.9); Red Blood Count 6.43 M/mm3 (4.2-5.4); White Blood Count 10.8 K/mm3 (4.4-11.0)
[2019-03-22 12:11] LABS: Differential Indicated SCAN CRITERIA MET
[2019-03-22 12:17] LABS: ALB/GLOB Ratio 0.9 RATIO (0.9-2.4); AST(SGOT) 56 U/L (15-37); Alanine Aminotransfer ALT/SGPT 57 U/L (13-56); Alkaline Phosphatase 113 U/L (45-117); Anion Gap 1 (5-15); BUN 45 mg/dL (7-18); BUN/Creat Ratio 28.5 RATIO (10-20); Calcium,Total 9.4 mg/dL (8.5-10.1); Chloride 100 mmol/L (98-107); Creatinine, Serum 1.58 mg/dL (0.55-1.02); EST Glomerular Filtration Rate 36 mL/min (>60); Est Glom Filt Rate - Afr Amer 44 mL/min (>60); Estimated Creatinine Clearance 37.66 ml/min; Globulin 3.5 g/dL (2.2-4.2); Glucose 92 mg/dL (74-106); Potassium 4.3 mmol/L (3.5-5.1); Protein, Total 6.5 g/dL (6.4-8.2); Sodium Level 141 mmol/L (136-145)
--- NOTE | 2019-03-22 12:23 | ED.DCSUM_ITS ---
History of Present Illness Chief Complaint: Shortness of Breath Informant: Patient Onset: Days Context: Gradual Onset Timing: Continuous Current Severity: Moderate Maximum Severity: Moderate Narrative: The patient is an obese 53-year-old female with history of COPD, CHF, and chronic respiratory failure who presents to the emergency department with shortness of breath. The patient was recently admitted here for COPD exacerbation. She was just discharged last evening. She was seen by physical therapy and Occupational Therapy who felt that the patient should be placed in a correction facility. She outright refused and states that that is not what she wanted to do. However, since getting home, she feels like she cannot care for herself. She had a call squad today because she cannot get out of her chair. She does admit to her chronic dyspnea but states has not worsened. She also has had bilateral leg pain which has been chronic. Prior similar symptoms: Yes Recent Illness/Hospitalization: Yes Past Medical History - Allergies and Home Meds Allergies/Adverse Reactions: Allergies morphine Allergy (Verified 03/22/19 13:55) Swelling oxycodone [Oxycodone] Allergy (Verified 03/18/19 18:24) Rash oxycodone HCl [From Percodan] Allergy (Verified 03/18/19 18:24) Hives oxycodone terephthalate [From Percodan] Allergy (Verified 03/18/19 18:24) Hives Sulfa (Sulfonamide Antibiotics) Allergy (Verified 03/18/19 18:24) Hives cefuroxime Adverse Reaction (Verified 03/18/19 18:24) Unknown Cephalosporins Adverse Reaction (Verified 03/18/19 18:24) Vomiting meperidine HCl [From Demerol] Adverse Reaction (Verified 03/18/19 18:24) Vomiting NSAIDS (Non-Steroidal Anti-Inflamma Adverse Reaction (Verified 03/18/19 18:24) Unknown Primary Care Physician: Brian Thao MD [Primary Care Provider] - Prior records reviewed: Yes Past Medical History: - - COPD, CHF Surgical History: cholecystectomy, - - 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 Maternal Family History: Reports: - - Patient denies knowledge of maternal medical history. Additional Family History: unable to get history, pt uncooperative Review of Systems General: Denies: Chills, Fever, Sweats Eyes: Denies: Visual changes - bilaterally, Diplopia ENT: Denies: Rhinorrhea, Sore throat Cardiovascular: Denies: Chest pain, Palpitations Respiratory: Reports: Dyspnea, Cough. Denies: Dyspnea on exertion Gastrointestinal: Denies: Abdominal pain, Nausea, Vomiting, Diarrhea, Melena, Hematochezia Genitourinary: Denies: Dysuria, Hematuria, Frequency Musculoskeletal: Reports: Arthralgias. Denies: Back pain, Extremity Pain Skin: Denies: Rash, Wounds Neurological: Denies: Headache, Weakness, Numbness Physical Exam Vital Signs/Narrative: Vital Signs Temp Pulse Resp BP Pulse Ox 03/22/19 12:00 87 18 03/22/19 11:24 97.5 F L 86 15 134/74 H 96 Inital Vital Signs reviewed: Yes General: Well nourished, Well developed, No Acute Distress Head: Normocephalic, Atraumatic Eyes: Perrl, EOMI ENT: Moist mucous membranes, No rhinorrhea Neck: Supple, Nontender Cardiovascular: Regular rate, Regular rhythm, No murmurs Respiratory: No distress, Chest nontender, Wheezing, Decreased Air Movement Abdomen: Soft, Nontender, Nondistended, Normal bowel sounds Back: Nontender, Normal Inspection Extremities: Nontender, No edema Skin: Normal color, No rash Neurological: Alert, Oriented x3, Cranial nerves II-XII grossly intact, Normal Strength, Normal Sensation Psychological: Normal affect, Normal Mood Diagnostic/Tx/Re-eval Clinical Impression(s) from Imaging Studies Chest X-Ray 03/22/19 11:35 IMPRESSION: No interval change Electronically Signed: Jimbo Babin MD at 11:51 EST , Service support , Abnormal Lab Results 03/22/19 03/22/19 11:52 11:52 WBC 10.8 RBC 6.43 H Hgb 15.5 H Hct 55.0 H MCV 85.5 MCH 24.1 L MCHC 28.2 L RDW Std Deviation 78.5 H RDW Coeff of [place] 25.5 H Plt Count 206 MPV 9.6 Immature Gran % (Auto) 0.500 Neut % (Auto) 79.5 H Lymph % (Auto) 9.6 L Brooke % (Auto) 10.0 Eos % (Auto) 0.4 Baso % (Auto) 0.0 Absolute Neuts (auto) 8.6 H Absolute Lymphs (auto) 1.04 Nucleated RBC % 0.3 Platelet Estimate ADEQUATE Anisocytosis 2+ Target Cells 1+ Sodium 141 Potassium 4.3 Chloride 100 Carbon Dioxide 40.0 H Anion Gap 1 L BUN 45 H Creatinine 1.58 H Estim Creat Clear Calc 37.66 Est GFR (MDRD) Af Amer 44 L Est GFR (MDRD) Non-Af 36 L BUN/Creatinine Ratio 28.5 H Glucose 92 Calcium 9.4 Total Bilirubin 2.20 H AST 56 H ALT 57 H Alkaline Phosphatase 113 Total Protein 6.5 Albumin 3.0 L Globulin 3.5 Albumin/Globulin Ratio 0.9 - Medical Decision Making The patient presents to the emergency department with exacerbation of her chronic dyspnea and generalized weakness. She was just discharged last night and refused correction facility. She is open to the fact that she would benefit from nursing care at this time. Metabolic work-up was obtained was unremarkable. There is no acute abnormalities needed dressed. The patient was seen by social work. Arrangements have been made to transfer the patient to a correction facility. Impression 1. Exacerbation of dyspnea ED Disposition - Plan for ED Patient: Instructions: Copd Flare Referrals: Brian Thao MD [Primary Care Provider] -
[2019-03-22 12:45] LABS: Anisocytosis 2+; Platelet Estimate ADEQUATE (ADEQ); Target Cells 1+
--- NOTE | 2019-03-22 13:13 | CM.ED ---
Social Work Consult: Placement Informant: Dr. Leos Met with patient in room. Introduced self as well as drug abuse social worker role. Patient reporting to have discharged from [facility] last evening and to have not been able to care for self. at home. Patient stating to now be agreeable to [facility]ci placement and would like to discharge to [facility]. Collaborating with Dr. Leos. Patient is medically cleared for [facility]ci placement and this is an agreeable plan. [facility] to be familiar with patient and to have openings. Clinical information faxed. Level of care completed and faxed to [facility]. Telephone call to speak with Kristie Biggs. Kristie stating to be able to use medical documentation from recent acute hospital stay. PLAN: Discharge to [facility] pending approval and LOC. JANUSZ Parsons
[2019-03-22] MEDS: HYDROcodone Bitartrate/Apap 5/325 Tablet PO (13:16)
--- NOTE | 2019-03-22 14:02 | ED.RN ---
PER DR. FINN WE DO NOT NEED TO OBTAIN URINE SAMPLE.
[2019-03-22 15:18] VITALS: BP 112/74; PULSE 86; RESP 18; O2SAT 96
--- NOTE | 2019-03-22 15:30 | CM.ED ---
Social Work [facility] patient pending patient being aware that patient will not be able to smoke. Met with patient in room. Patient stating to not be sure about not smoking. Patient aware that patient is on 6L of oxygen and concerns with smoking. [facility] stating that prior stays patient was not able to maintain oxygen sats to go outside and smoke without oxygen. Patient stating frustration with not being able to smoke but does not want to look into any other facilities. Problem solving with patient. Patient stating to be agreeable to going to [facility] with the goal of getting better so patient is able to return to home and smoke again. This social media editor broached topic of patch for patient, patient stating to have tried this before and it doesn't work. Patient also able to acknowledge that patient is not able to care for self at home. After further conversation and problem solving, patient is agreeable to not smoking at the facility and wanting to discharge to [facility]. [facility] on conversation with patient. [facility] stating to be able to accept patient. Faxed discharge information, medication list and LOC. Updated medical team. [employer] to set up transportation. PLAN: Discharge to [facility] Td MCLAUGHLIN, JANUSZ
== END 2019-03-22 17:32 | disposition skilled nursing facility (03) ==
LOC: ED 11:57
PROVIDERS: Emergency Provider Emergency Medicine; PCP Internal Medicine
DX: R06.09 Other forms of dyspnea (principal); J96.10 Chronic respiratory failure, unspecified whether with hypoxia or hypercapnia; I50.9 Heart failure, unspecified; J44.9 Chronic obstructive pulmonary disease, unspecified; F17.200 Nicotine dependence, unspecified, uncomplicated; Z79.51 Long term (current) use of inhaled steroids; Z79.82 Long term (current) use of aspirin; Z79.899 Other long term (current) drug therapy
CPT/HCPCS: 71045; 80053; 85025; 93005; 94640; 99251; 99285; A4216; G0463

== ENCOUNTER 2019-09-06 15:41 | Emergency (ER) | payer MEDICAID, SELFPAY ==
[2019-09-06 15:43] VITALS: BP 138/103; PULSE 73; RESP 12; TEMP 36.7; O2SAT 96; BMI 58.1
[2019-09-06 15:46] VITALS: BP 144/98
[2019-09-06 15:53] VITALS: O2SAT 96
--- NOTE | 2019-09-06 16:16 | EKG12_ITS ---
Test Reason : SOB Blood Pressure : / mmHG Vent. Rate : 071 BPM Atrial Rate : 071 BPM P-R Int : 176 ms QRS Dur : 168 ms QT Int : 474 ms P-R-T Axes : 066 135 -33 degrees QTc Int : 515 ms Normal sinus rhythm Possible Left atrial enlargement Right bundle branch block , plus right ventricular hypertrophy T wave abnormality, consider inferior ischemia Abnormal ECG Confirmed by JM BONILLA, BRODY ([id number]), map editor YAMILKA HEIN ([id number]) on 09/09/2019 1:07:08 PM Referred By: HANSEL Confirmed By:BRODY ONEAL MD
[2019-09-06] MEDS: HYDROcodone Bitartrate/Apap 5/325 Tablet PO (16:30)
[2019-09-06 17:02] LABS: Absolute Lymphocyte Count 1.47 X10^3/uL (0.83-4.51); Absolute Neutrophil Count 3.3 X10^3/uL (2.0-7.7); Basophil# 0.07 X10^3/uL; Basophil% 1.2 % (0-1); Eosinophil# 0.17 X10^3/uL; Hemoglobin 16.9 g/dL (12.0-15.0); Lymphocyte # 1.47 X10^3/ul (4.0); Lymphocyte % 25.8 % (19-41); Mean Corp Hgb Conc 28.1 g/dL (32-36); Mean Corpuscular Hgb 26.2 pg (27.0-32.0); Mean Corpuscular Volume 93.2 fL (81-99); Mean Platelet Vol. 9.6 fl (6.2-12.0); Monocyte# 0.67 X10^3/uL; Monocyte% 11.8 % (0-10); NRBC Flagged by Analyzer 0 % (0-5); POSITIVE MORPHOLOGY YES; Platelet Count 199 K/mm3 (150-450); RBC Distribution Width CV 20.9 % (11.6-14.6); RBC Distribution Width SD 65.5 fl (35.1-43.9); Red Blood Count 6.45 M/mm3 (4.2-5.4); White Blood Count 5.7 K/mm3 (4.4-11.0)
--- NOTE | 2019-09-06 17:04 | ED.VISSUMM ---
- ER Visit Summary Date of Service: 09/06/19 Chief Complaint: Left breast pain History of Present Illness: The patient is a [address] Thao. 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 She reports she has left breast pain that began 2 days ago. Is an aching, stabbing pain is 1010 severity. Is worsened by touching it or movement. Is relieved by nothing. She denies any rash. No injury. No change in activity or MVA. Patient reports that she is had swelling to her legs, feet, and abdomen over the past 2 to 3 weeks. She is on Lasix 40 mg twice daily and states this is not helping. She does not do daily weights. On review of systems patient reports has a chronic cough is unchanged. She reports that she has a rash beneath her breast that she has been using nystatin powder on for the past 3 days. Patient reports that she has had similar breast pain from water buildup in the past. She has never had a mammogram. Physical Examination: Vitals: Stable. Afebrile. General: Well-nourished and well-developed. Head: Normocephalic atraumatic. Neck: Supple, no lymphadenopathy. No JVD. Nontender. Cardiovascular: Regular rate and rhythm. No murmurs. Respiratory: No respiratory distress. Clear to auscultation bilaterally. Moderate diffuse tenderness palpation over her entire left breast. I do not palpate a mass. There is no induration, fluctuance, or erythema. Abdominal: Soft, nontender, nondistended, normal bowel sounds. No guarding, rebound, or peritoneal signs. Back: Nontender. Extremities: Chronic venous stasis changes of her lower extremities bilaterally. This is violaceous in color. Patient reports that this is typical for her. She does not have a palpable dorsalis pedis pulse bilaterally. There is no erythema or warmth to suggest cellulitis. Skin: Normal color, no rash. Neurologic: Alert and oriented ?3. Cranial nerves II through XII are intact. Normal strength and sensation. Psych: Normal affect. Test Results: EKG is sinus at 71 with right bundle branch block. Her QTC is 515. Is unchanged from March of this year. Troponin is negative. BNP is 973.5. It has ranged from 952?2 434 in 2019. Chem-7 shows a CO2 of 39, BUN 32, creatinine 1.09. CBC shows a hemoglobin of 16.9 with hematocrit of 60.1, monocytes of 12. Emergency Department Course and Treatment: Patient was treated with Kathleen and is resting comfortably. I reviewed her chart which shows she had an echo in November 2018 that showed normal systolic function, ejection fraction of 55% and stage I diastolic dysfunction. Had a prolonged discussion the patient that I suspect that her peripheral edema is due to obstructive sleep apnea and subsequent pulmonary hypertension. She needs to see a doctor of chiropractic or her primary care physician and be placed on CPAP. I do not think that her breast pain is from this. Had a prolonged discussion with her that she needs to have a mammogram to rule out breast cancer given that this is her second episode of this in the past year. Treatment Plan: Patient will be discharged with Kathleen. Instructed to follow-up with her primary care physician as soon as possible. Return to the emergency department for any worsening symptoms. Disposition: To home in improved and stable condition. Impression: 1. Left breast pain, uncertain cause. 2. Obstructive sleep apnea. 3. Peripheral edema. This note was generated with [employer] dictation software. It may contain incorrect words, spelling, and punctuation that were not noted in review of the chart prior to signing ED Disposition - Plan for ED Patient: Disposition: Home or Assisted Living Instructions: Pulmonary Hypertension, ED Sleep Apnea Obstructive Prescriptions: Doxycycline 100 mg PO BID #14 cap Prescription Printed Referrals: Rosalio Pearce MD [STAFF PHYSICIAN] - Brian Thao MD [Primary Care Provider] - As soon as possible Additional Instructions: I suspect that the swelling that you have is as a result of obstructive sleep apnea and not using a CPAP. To get into see your doctor or Dr. Pearce as soon as possible for treatment of your sleep apnea. You need a mammogram to further evaluate the cause of your breast pain and to ensure that this is not something serious such as cancer.
[2019-09-06 17:17] LABS: Anion Gap 1 (5-15); BUN 32 mg/dL (7-18); BUN/Creat Ratio 29.4 RATIO (10-20); Calcium,Total 8.9 mg/dL (8.5-10.1); Chloride 103 mmol/L (98-107); Creatinine, Serum 1.09 mg/dL (0.55-1.02); EST Glomerular Filtration Rate 55 mL/min (>60); Est Glom Filt Rate - Afr Amer 67 mL/min (>60); Estimated Creatinine Clearance 53.95 ml/min; Glucose 75 mg/dL (74-106); Potassium 4.1 mmol/L (3.5-5.1); Sodium Level 143 mmol/L (136-145)
[2019-09-06 17:35] LABS: Differential Indicated SCAN CRITERIA MET; Hematocrit 60.1 % (37-47)
[2019-09-06 17:57] LABS: BNP,B-Type NATRIURETIC PEPTIDE 973.5 pg/mL (0-100)
[2019-09-06 18:02] LABS: Anisocytosis 1+; Differential Comment SCANNED
[2019-09-06 18:05] VITALS: BP 130/94; PULSE 77; RESP 14; O2SAT 96
== END 2019-09-06 19:45 | disposition home or self-care (01) ==
PROVIDERS: Emergency Provider Emergency Medicine; PCP Internal Medicine
DX: N64.4 Mastodynia (principal); G47.33 Obstructive sleep apnea (adult) (pediatric); R60.0 Localized edema; I11.0 Hypertensive heart disease with heart failure; I50.9 Heart failure, unspecified; J44.9 Chronic obstructive pulmonary disease, unspecified; Z72.0 Tobacco use; Z79.51 Long term (current) use of inhaled steroids; Z79.02 Long term (current) use of antithrombotics/antiplatelets; Z79.899 Other long term (current) drug therapy
CPT/HCPCS: 80048; 83880; 84484; 85025; 93005; 99285; A4216

== ENCOUNTER 2019-09-09 19:21 | Emergency (ER) | payer MEDICAID, SELFPAY ==
[2019-09-09 19:23] VITALS: BP 130/88; PULSE 89; RESP 16; TEMP 36.3; O2SAT 97; BMI 64.5
[2019-09-09 23:47] VITALS: BP 120/76; PULSE 83; RESP 15; RESP 16; TEMP 36.8; O2SAT 96; O2SAT 97
--- NOTE | 2019-09-10 | RAD_ITS ---
STUDY: X-RAY CHEST REASON FOR EXAM: Female, 54 years old. Left breast pain and swelling. TECHNIQUE: AP portable chest. COMPARISON: March 22, 2019. December 08, 2018. FINDINGS: Stable mild cardiomegaly. Focal ovoid airspace opacity right lung base. No pleural effusions. No pneumothorax. Osseous structures unchanged. There is no demonstrated abnormality of the visualized soft tissue structures of the upper abdomen. RAD/Chest 1 View (Portable) IMPRESSION: Stable mild cardiomegaly. Right basilar density probably representing pneumonia or atelectasis. Recommend continued follow-up to exclude an underlying mass. No findings to account for left-sided symptoms. Electronically Signed: Julio Moore MD at 0:50 EDT , Service support ,
--- NOTE | 2019-09-10 | ED.VIS.GEN ---
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 She has had these symptoms before. She is currently taking Lasix 40 mg twice a day. She denies any significant swelling of the legs from baseline. No fevers. She was seen approximately 3 days ago and started on antibiotics (doxycyline) and pain medication ([place]). She has follow-up in a couple days but states the swelling continues to get worse. History of cor pulmonale. Last ejection fraction 55% at the end of 2019. Of note the patient states that she does spend a lot of time laying on her left side. Past Medical History - Allergies and Home Meds Allergies/Adverse Reactions: Allergies morphine Allergy (Verified 09/09/19 23:35) Swelling oxycodone [Oxycodone] Allergy (Verified 09/09/19 23:35) Rash oxycodone HCl [From Percodan] Allergy (Verified 09/09/19 23:35) Hives oxycodone terephthalate [From Percodan] Allergy (Verified 09/09/19 23:35) Hives Sulfa (Sulfonamide Antibiotics) Allergy (Verified 09/09/19 23:35) Hives cefuroxime Adverse Reaction (Verified 09/09/19 23:35) Unknown Cephalosporins Adverse Reaction (Verified 09/09/19 23:35) Vomiting meperidine HCl [From Demerol] Adverse Reaction (Verified 09/09/19 23:35) Vomiting NSAIDS (Non-Steroidal Anti-Inflamma Adverse Reaction (Verified 09/09/19 23:35) Unknown Primary Care Physician: Rosalio Pearce MD [STAFF PHYSICIAN] - As soon as possible Brian Thao MD [Primary Care Provider] - Keep [place] appointment Surgical History: cholecystectomy, - - 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 Maternal Family History: Reports: - - Patient denies knowledge of maternal medical history. Additional Family History: unable to get history, pt uncooperative Review of Systems General: Denies: Chills, Fever, Sweats Eyes: Denies: Visual changes - bilaterally, Diplopia ENT: Denies: Rhinorrhea, Sore throat Cardiovascular: Denies: Chest pain, Palpitations Respiratory: Denies: Dyspnea, Cough, Dyspnea on exertion Gastrointestinal: Denies: Abdominal pain, Nausea, Vomiting, Diarrhea, Melena, Hematochezia Genitourinary: Denies: Dysuria, Hematuria, Frequency Musculoskeletal: Denies: Back pain, Extremity Pain Skin: Reports: - - Swelling of the left abdomen and breast and chest wall. Denies: Rash, Wounds Neurological: Denies: Headache, Weakness, Numbness Physical Exam Vital Signs/Narrative: Vital Signs Temp Pulse Resp BP Pulse Ox 09/09/19 23:47 98.3 F 83 16 120/76 96 Inital Vital Signs reviewed: Yes General: Well nourished, Well developed, Obese, No Acute Distress Head: Normocephalic, Atraumatic Eyes: Perrl, EOMI ENT: Moist mucous membranes, No rhinorrhea Neck: Supple, Nontender Cardiovascular: Regular rate, Regular rhythm, No murmurs Respiratory: No distress, CTA bilaterally, - - Patient has swelling with raised swollen lines of the abdominal wall left chest and breast. It is not particularly red when compared to the other side. No drainage from the nipple. Abdomen: Soft, Nontender, Nondistended, Normal bowel sounds Back: Nontender, Normal Inspection Extremities: Nontender, Edema - Symmetric bilaterally Skin: - - Chronic venous changes of the lower extremities Neurological: Alert, Oriented x3, Cranial nerves II-XII grossly intact, Normal Strength, Normal Sensation Psychological: Normal affect, Normal Mood Diagnostic/Tx/Re-eval Laboratory Last Values Sodium 144 mmol/L (136-145) 09/09/19 23:57 Potassium 4.0 mmol/L (3.5-5.1) 09/09/19 23:57 Chloride 105 mmol/L (98-107) 09/09/19 23:57 Carbon Dioxide 36.0 mmol/L (21.0-32.0) H 09/09/19 23:57 Anion Gap 3 (5-15) L 09/09/19 23:57 BUN 30 mg/dL (7-18) H 09/09/19 23:57 Creatinine 1.30 mg/dL (0.55-1.02) H 09/09/19 23:57 Estim Creat Clear Calc 45.24 ml/min 07/27/20 23:57 Est GFR (MDRD) Af Amer 54 mL/min (>60) L 09/09/19 23:57 Est GFR (MDRD) Non-Af 45 mL/min (>60) L 09/09/19 23:57 BUN/Creatinine Ratio 23.1 RATIO (10-20) H 09/09/19 23:57 Glucose 115 mg/dL (74-106) H 09/09/19 23:57 Calcium 9.0 mg/dL (8.5-10.1) 09/09/19 23:57 - Medical Decision Making Hest x-ray showed chronic changes on the right pleural-based mass. No overt effusion or CHF. Creatinine 1.3. At this point I think the patient stable for discharge. She tells me she cannot breathe that she just speaks to me complete sentences at a time while satting 99% on her home 4-1/2 L. He tells me she has to be admitted as there is no way she can get a ride home tonight. Informed her I do not really have a good reason to admit her at this time. She is hemodynamically stable. We will increase diuresis at home. She is already on antibiotics. She tells me she is going to call another family member to get a ride home. I am going to write for her to have spironolactone 50 twice daily I will write for a few [place]. She has appointment in 3 days for follow-up. She does not wish an IV dose of Lasix here given the hour of night and her drive home. ED Disposition - Plan for ED Patient: Disposition: Home or Assisted Living Diagnosis: Respiratory failure with hypoxia and hypercapnia, Cor pulmonale, Peripheral edema Instructions: ED Peripheral Edema, Unilateral Prescriptions: Hydrocodone Bitart/Apap 5-325 [[place] 5MG-325MG] 1 tab PO Q6H PRN PRN 3 Days #12 tab PRN Reason: Pain Prescription Printed Spironolactone 50 mg PO BID #10 tab Prescription Printed Referrals: Brian Thao MD [Primary Care Provider] - Keep [facility] appointment Rosalio Pearce MD [STAFF PHYSICIAN] - As soon as possible
[2019-09-10 00:20] LABS: Anion Gap 3 (5-15); BUN 30 mg/dL (7-18); BUN/Creat Ratio 23.1 RATIO (10-20); Chloride 105 mmol/L (98-107); EST Glomerular Filtration Rate 45 mL/min (>60); Est Glom Filt Rate - Afr Amer 54 mL/min (>60); Estimated Creatinine Clearance 45.24 ml/min; Glucose 115 mg/dL (74-106); Sodium Level 144 mmol/L (136-145)
[2019-09-10 01:43] VITALS: BP 126/82; RESP 20
[2019-09-10] MEDS: Acetaminophen 500 MG Tablet 1000 MG PO (02:00)
[2019-09-10 02:19] VITALS: BP 129/99; PULSE 90; RESP 18; O2SAT 92
== END 2019-09-10 02:39 | disposition home or self-care (01) ==
PROVIDERS: Emergency Provider Emergency Medicine; PCP Internal Medicine
DX: R60.1 Generalized edema (principal); I27.81 Cor pulmonale (chronic); J96.91 Respiratory failure, unspecified with hypoxia; J96.92 Respiratory failure, unspecified with hypercapnia; F17.200 Nicotine dependence, unspecified, uncomplicated; E66.9 Obesity, unspecified
CPT/HCPCS: 36415; 71045; 80048; 99285